=== PATIENT | female | born 1995 | race Caucasian/White ===

== ENCOUNTER 2023-04-20 17:24 | Emergency (ER) | payer OTHER, SELFPAY ==
[2023-04-20 17:47] VITALS: BP 108/88; PULSE 87; RESP 24; TEMP 36.8; O2SAT 96; BMI 22.9
[2023-04-20] MEDS: HYDROMORPHONE HCL 1 MG/ML CARTRIDGE IV (18:33)
[2023-04-20] MEDS: ONDANSETRON PF 4 MG/2 ML VIAL IV (18:34)
[2023-04-20 18:35] LABS: Basophils Percent Auto 0.3 % (0.2-2.0); Eosinophils Absolute Auto 0.3 10^3/uL (0.0-0.7); Eosinophils Percent Auto 2.7 % (0.9-7.0); Hematocrit 42.4 % (36.0-48.0); Hemoglobin 14.2 g/dL (12.0-16.0); Immature Granulocytes Abs Auto 0.03 10^3/uL (0.00-0.03); Immature Granulocytes Pct Auto 0.3 % (0.0-0.5); Lymphocytes Absolute Auto 1.9 10^3/uL (1.2-3.8); Lymphocytes Percent Auto 16.1 % (20.5-60.0); Mean Corpuscular HGB Conc 33.5 g/dL (29.9-35.2); Mean Corpuscular Hemoglobin 30.6 pg (26.7-34.0); Mean Corpuscular Volume 91.4 fL (81.0-99.0); Mean Platelet Volume 10.3 fL (9.5-13.5); Monocytes Absolute Auto 0.5 10^3/uL (0.3-0.8); Monocytes Percent Auto 4.5 % (1.7-12.0); Neutrophils Absolute Auto 8.9 10^3/uL (1.4-6.5); Neutrophils Percent Auto 76.1 % (43.0-75.0); Platelet Count 289 10^3/uL (150-450); Red Blood Count 4.64 10^6/uL (4.20-5.40); Red Cell Distribution Width 12.5 % (11.0-15.0); White Blood Count 11.7 10^3/uL (4.0-11.0)
[2023-04-20] MEDS: PANTOPRAZOLE SODIUM 40 MG VIAL IV (18:41)
[2023-04-20] MEDS: 0.9 % SODIUM CHLORIDE 1,000 ML 1000 ML IV (18:41)
[2023-04-20 18:46] LABS: Alanine Aminotransferase 16 U/L (14-59); Albumin Globulin Ratio 1.1; Alkaline Phosphatase 56 U/L (46-116); Anion Gap 12.3; Aspartate Amino Transferase 13 U/L (15-37); BUN Creatinine Ratio 22.8; Bilirubin Total 0.8 mg/dL (0.2-1.0); Calcium 8.7 mg/dL (8.5-10.1); Carbon Dioxide 24.9 mmol/L (21.0-32.0); Chloride 103 mmol/L (98-107); Estimated GFR (African America >60 (>=60); Estimated GFR (Non-African Ame >60 (>=60); Globulin 3.5 g/dL; Glucose 89 mg/dL (74-106); Potassium 4.2 mmol/L (3.5-5.1); Sodium 136 mmol/L (136-145); Total Protein 7.5 g/dL (6.4-8.2)
[2023-04-20 18:49] LABS: Lactate/Lactic Acid 0.9 mmol/L (0.4-2.0)
[2023-04-20 19:03] LABS: HCG Qualitative POSITIVE (NEGATIVE)
[2023-04-20] MEDS: lidocaine HCL 15 ML, MAG HYDROX/ALUMINUM HYD/SIMETH 30 ML, HYOSCYAMINE SULFATE 0.25 MG PO (20:02)
--- NOTE | 2023-04-20 20:54 | ED.ABDPAIN1 ---
Documented by User: ELSY Anderson 04/20/23 21:04 HPI - Abdominal Pain General Chief Complaint: Abdominal Pain Stated Complaint: ABDOMINAL PAIN Time Seen by Provider: 04/20/23 17:56 Source: patient Mode of arrival: Wheelchair Limitations: no limitations History of Present Illness HPI narrative: patient is a 28-year-old female who presents to the emergency department with her mother for the evaluation of increasing abdominal pain over the last several days. Patient states she has had ongoing similar issues for almost 2 years since her gallbladder was taken out. At time of initial interview, patient is tearful, anxious, unwilling to change into a gown and refusing IV. Her mother is at bedside and repeats over and over there is something wrong . Patient has had no objective fever, she reports an episode of coffee ground emesis earlier today. She is unsure if she may be . She denies any low abdominal pain, urinary symptoms or diarrhea. She states the pain in the epigastrium is constant and goes through to her back. She had her gallbladder removed almost 2 years ago in [place], the patient and her mother are focused on the surgery as she apparently had a complication of lacerated bile duct. She has not seen any specialists to follow up on her chronic abdominal pain since this time. She does not take any regular gastrointestinal meds. She has had no upper respiratory symptoms. Related Data Previous Rx's Medication Instructions Recorded famotidine 20 mg tablet (Pepcid) 20 mg PO BID #10 tabs 04/20/23 hydrocodone 5 mg-acetaminophen 325 1 tab PO Q6H PRN pain #6 tabs 04/20/23 mg tablet ondansetron 4 mg disintegrating 4 mg PO Q6H PRN nausea and 04/20/23 tablet vomiting #12 tabs sucralfate 1 gram tablet (Carafate) 1 g PO Q6H PRN abdominal pain #12 04/20/23 tabs Allergies Allergy/AdvReac Type Severity Reaction Status Date / Time morphine Allergy Severe Hives Verified 04/20/23 17:46 Penicillins Allergy Severe Verified 04/20/23 17:46 Review of Systems ROS Constitutional Denies: fever or chills Ears, nose, mouth, and throat Denies: throat pain or nasal congestion Cardiovascular Denies: chest pain Respiratory Denies: shortness of breath or cough Gastrointestinal Reports: abdominal pain, nausea, vomiting and coffee grounds in vomit; Denies: diarrhea or constipation Genitourinary Denies: painful urination Musculoskeletal Reports: back pain; Denies: neck pain Integumentary/Breast Denies: rash Neurological Denies: headache Psychiatric Reports: anxiety Endocrine Denies: excessive urination Hematologic/Lymphatic Denies: easy bruising PFSH [facility] Social History Smoking status: Heavy tobacco smoker Exam Narrative Exam Narrative: Gen.: Awake, alert, tearful and anxious Head: Normocephalic, atraumatic ENT: Moist mucous membranes Respiratory: No respiratory distress, lungs clear bilaterally Cardio: Regular rate and rhythm Gastrointestinal: Abdomen is soft, nondistended and tender to palpation in the epigastrium with voluntary guarding, no rebound. No CVA or flank tenderness Extremities: Moves extremities equally Psych: tearful, anxious Neuro: No focal neuro deficit Skin: Warm, dry, intact Constitutional Vital Signs, click to edit/add: Last Vital Signs Temp 98.3 F 04/20/23 17:47 Pulse 87 04/20/23 17:47 Resp 24 04/20/23 17:47 BP 108/88 04/20/23 17:47 Pulse Ox 96 04/20/23 17:47 Course Vital Signs Vital signs: Vital Signs Temperature 98.3 F 04/20/23 17:47 Pulse Rate 87 04/20/23 17:47 Respiratory Rate 24 04/20/23 17:47 Blood Pressure 108/88 04/20/23 17:47 Pulse Oximetry 96 04/20/23 17:47 Temperature 98.3 F 04/20/23 17:47 Pulse Rate 87 04/20/23 17:47 Respiratory Rate 24 04/20/23 17:47 Blood Pressure 108/88 04/20/23 17:47 Pulse Oximetry 96 04/20/23 17:47 MDM - Abdominal Pain MDM Narrative Medical decision making narrative: on my initial evaluation, patient's mother requests multiple times that the patient have a full evaluation, endoscopy, MRI of the abdomen. Patient has normal vital signs, no fevers or tachycardia. Patient was educated that she needs to allow IV placement with lab draw, her lab studies are all within normal limits. She has no anemia, no LFT abnormalities. Normal electrolytes and kidney function noted. Patient was noted to have a positive test on her lab studies. Patient was made aware that she is , we will avoid radiation as a result. Patient was given IV fluids, Dilaudid, Zofran, Pepcid with improvement. Additional gastrointestinal cocktail was given. Patient's history and physical exam are consistent with gastritis/possible ulcer. She had no episodes of emesis in the emergency department. She was observed in the Emergency Room for over three hours with no abnormal vital signs, vomiting or dry heaving. An extensive conversation was had with the patient and her mother at bedside to educate them on why we are deferring radiation/imaging at this time. Patient has had ongoing similar issues with this abdominal pain, abdomen is soft and benign in the Emergency Room. Patient will be provided with multiple resources to follow-up with primary care, gastrointestinal specialty. She is provided with Carafate, Pepcid, Zofran for gastrointestinal symptoms as well as a short course of analgesics for pain. She was reexamined by attending physician prior to discharge. Medical Records Attestation: I reviewed the patient's medical records. Lab Data Attestation: I reviewed the patient's lab results. Labs: Lab Results 04/20/23 Range/Units 18:23 WBC 11.7 H (4.0-11.0) 10^3/uL RBC 4.64 (4.20-5.40) 10^6/uL Hgb 14.2 (12.0-16.0) g/dL Hct 42.4 (36.0-48.0) % MCV 91.4 (81.0-99.0) fL MCH 30.6 (26.7-34.0) pg MCHC 33.5 (29.9-35.2) g/dL RDW 12.5 (11.0-15.0) % Plt Count 289 (150-450) 10^3/uL MPV 10.3 (9.5-13.5) fL Neut % (Auto) 76.1 H (43.0-75.0) % Lymph % (Auto) 16.1 L (20.5-60.0) % [place] % (Auto) 4.5 (1.7-12.0) % Eos % (Auto) 2.7 (0.9-7.0) % Baso % (Auto) 0.3 (0.2-2.0) % Neut # (Auto) 8.9 H (1.4-6.5) 10^3/uL Lymph # (Auto) 1.9 (1.2-3.8) 10^3/uL [place] # (Auto) 0.5 (0.3-0.8) 10^3/uL Eos # (Auto) 0.3 (0.0-0.7) 10^3/uL Baso # (Auto) 0.0 (0.0-0.1) 10^3/uL Abs Immat Gran (auto) 0.03 (0.00-0.03) 10^3/uL Imm/Tot Granulo (auto) 0.3 (0.0-0.5) % Sodium 136 (136-145) mmol/L Potassium 4.2 (3.5-5.1) mmol/L Chloride 103 (98-107) mmol/L Carbon Dioxide 24.9 (21.0-32.0) mmol/L Anion Gap 12.3 BUN 18.0 (7.0-18.0) mg/dL Creatinine 0.79 (0.55-1.02) mg/dL Est GFR ( Amer) >60 (>=60) Est GFR (Non-Af Amer) >60 (>=60) BUN/Creatinine Ratio 22.8 Glucose 89 (74-106) mg/dL Lactate 0.9 (0.4-2.0) mmol/L Calcium 8.7 (8.5-10.1) mg/dL Total Bilirubin 0.8 (0.2-1.0) mg/dL AST 13 L (15-37) U/L ALT 16 (14-59) U/L Alkaline Phosphatase 56 (46-116) U/L Total Protein 7.5 (6.4-8.2) g/dL Albumin 4.0 (3.4-5.0) g/dL Globulin 3.5 g/dL Albumin/Globulin Ratio 1.1 Lipase 23.0 (16.0-77.0) U/L Serum HCG, Qual Positive A (NEGATIVE) Discharge Plan Discharge Chief Complaint: Abdominal Pain Clinical Impression: , Abdominal pain Patient Disposition: Home, Self-Care Time of Disposition Decision: 20:46 Condition: Good Prescriptions / Home Meds: New hydrocodone-acetaminophen 5-325 mg tablet 1 tab PO Q6H PRN (Reason: pain) Qty: 6 0RF Rx Instructions: DX R10.9 sucralfate [Carafate] 1 gram tablet 1 g PO Q6H PRN (Reason: abdominal pain) Qty: 12 0RF famotidine [Pepcid] 20 mg tablet 20 mg PO BID Qty: 10 0RF ondansetron 4 mg tablet,disintegrating 4 mg PO Q6H PRN (Reason: nausea and vomiting) Qty: 12 0RF Instructions: (ED), Peptic Ulcer (ED), Gastritis (ED), GERD (Gastroesophageal Reflux Disease) (ED), Abdominal Pain (ED) Stand Alone Forms: Portal Instructions Referrals: MARZENA ROSS [Physician] - 1 week Marvel HARMON [Physician] - 1 week Physician,Non-Staff, [Primary Care Provider] - 1 week Discharge Date/Time: 04/20/23 21:10 Documented by User: Kristian Ho MD 04/20/23 23:05 HPI - Abdominal Pain General Chief Complaint: Abdominal Pain Stated Complaint: ABDOMINAL PAIN Time Seen by Provider: 04/20/23 17:56 Related Data Previous Rx's Medication Instructions Recorded famotidine 20 mg tablet (Pepcid) 20 mg PO BID #10 tabs 04/20/23 hydrocodone 5 mg-acetaminophen 325 1 tab PO Q6H PRN pain #6 tabs 04/20/23 mg tablet ondansetron 4 mg disintegrating 4 mg PO Q6H PRN nausea and 04/20/23 tablet vomiting #12 tabs sucralfate 1 gram tablet (Carafate) 1 g PO Q6H PRN abdominal pain #12 04/20/23 tabs Allergies Allergy/AdvReac Type Severity Reaction Status Date / Time morphine Allergy Severe Hives Verified 04/20/23 17:46 Penicillins Allergy Severe Verified 04/20/23 17:46 PFSH PFSH Social History Smoking status: Heavy tobacco smoker Exam Constitutional Vital Signs, click to edit/add: Last Vital Signs Temp 98.3 F 04/20/23 17:47 Pulse 87 04/20/23 17:47 Resp 24 04/20/23 17:47 BP 108/88 04/20/23 17:47 Pulse Ox 96 04/20/23 17:47 Course Vital Signs Vital signs: Vital Signs Temperature 98.3 F 04/20/23 17:47 Pulse Rate 87 04/20/23 17:47 Respiratory Rate 24 04/20/23 17:47 Blood Pressure 108/88 04/20/23 17:47 Pulse Oximetry 96 04/20/23 17:47 Temperature 98.3 F 04/20/23 17:47 Pulse Rate 87 04/20/23 17:47 Respiratory Rate 24 04/20/23 17:47 Blood Pressure 108/88 04/20/23 17:47 Pulse Oximetry 96 04/20/23 17:47 MDM - Abdominal Pain MDM Narrative Medical decision making narrative: on my initial evaluation, patient's mother requests multiple times that the patient have a full evaluation, endoscopy, MRI of the abdomen. Patient has normal vital signs, no fevers or tachycardia. Patient was educated that she needs to allow IV placement with lab draw, her lab studies are all within normal limits. She has no anemia, no LFT abnormalities. Normal electrolytes and kidney function noted. Patient was noted to have a positive test on her lab studies. Patient was made aware that she is , we will avoid radiation as a result. Patient was given IV fluids, Dilaudid, Zofran, Pepcid with improvement. Additional gastrointestinal cocktail was given. Patient's history and physical exam are consistent with gastritis/possible ulcer. She had no episodes of emesis in the emergency department. She was observed in the Emergency Room for over three hours with no abnormal vital signs, vomiting or dry heaving. An extensive conversation was had with the patient and her mother at bedside to educate them on why we are deferring radiation/imaging at this time. Patient has had ongoing similar issues with this abdominal pain, abdomen is soft and benign in the Emergency Room. Patient will be provided with multiple resources to follow-up with primary care, gastrointestinal specialty. She is provided with Carafate, Pepcid, Zofran for gastrointestinal symptoms as well as a short course of analgesics for pain. She was reexamined by attending physician prior to discharge. Dr Ho note: I, Dr Ho, have reviewed the above progress note and course of action in the ER; agree with the above. I have personally seen and evaluated this patient, gone over history and physical, and discussed disposition and treatment plan with the patient. Patient says that she lost her drivers license several years ago, and she is unable to drive anymore appointments and needs to rely on other people and friends and family for help. Patient has had medical noncompliance the last several years due to this. When patient arrived to the Emergency Room, she was a . Patient's had 2 miscarriages. Patient was due to follow up with a gastrointestinal specialist 2 years ago for similar symptoms and she did not make her appointment. Patient currently has no PCP. She has not followed up with a gastrointestinal specialist the last several years. Patient has signs and symptoms that are concerning for acid reflux, GERD, gastritis, possible peptic or duodenal ulcer. Patient found out that she was today with a positive test. Patient was educated on starting to use vitamins. Patient is aware she can only use Tylenol for pain, she was sent home with a few pain tablets of [place] as well. Patient is aware that she can use Maalox or Mylanta. Education was done with patient and mother the patient needs to follow-up and establish a PCP, patient is to follow-up and establish gastrointestinal physician. Patient and mother were slightly upset because we do not have gastrointestinal physician available, she cannot have a EGD or scope tonight done in the Emergency Room or admitted to the hospital for this. Patient is from [place], she currently lives in [place]. [place] were [place] [facility] [place] have available for consultation. They were educated on following up with Dr. Lopez as an outpatient and were also given gastrointestinal physicians from [facility] as possibilities of follow-up along with the health department, and the PCP this was given as well. Dr. Ho spent approximately 10 minutes with patient and mother at discharge with Kamilah Freeman RN in the room at all times during discharge discussion, plan, summer and treatment plan. Patient nausea and pain is better at discharge, she has a nonsurgical abdomen at discharge. Education all possibilities differential diagnosis was done at discharge and on education given to the patient at discharge as well. Patient has no acute indication for admission to the hospital at this time. Patient's mother understands this. Education was done on reasons why to return to the Emergency Room including intractable nausea, vomiting, abdominal pain, or any other acute concerns Lab Data Labs: Lab Results 04/20/23 Range/Units 18:23 WBC 11.7 H (4.0-11.0) 10^3/uL RBC 4.64 (4.20-5.40) 10^6/uL Hgb 14.2 (12.0-16.0) g/dL Hct 42.4 (36.0-48.0) % MCV 91.4 (81.0-99.0) fL MCH 30.6 (26.7-34.0) pg MCHC 33.5 (29.9-35.2) g/dL RDW 12.5 (11.0-15.0) % Plt Count 289 (150-450) 10^3/uL MPV 10.3 (9.5-13.5) fL Neut % (Auto) 76.1 H (43.0-75.0) % Lymph % (Auto) 16.1 L (20.5-60.0) % [place] % (Auto) 4.5 (1.7-12.0) % Eos % (Auto) 2.7 (0.9-7.0) % Baso % (Auto) 0.3 (0.2-2.0) % Neut # (Auto) 8.9 H (1.4-6.5) 10^3/uL Lymph # (Auto) 1.9 (1.2-3.8) 10^3/uL [place] # (Auto) 0.5 (0.3-0.8) 10^3/uL Eos # (Auto) 0.3 (0.0-0.7) 10^3/uL Baso # (Auto) 0.0 (0.0-0.1) 10^3/uL Abs Immat Gran (auto) 0.03 (0.00-0.03) 10^3/uL Imm/Tot Granulo (auto) 0.3 (0.0-0.5) % Sodium 136 (136-145) mmol/L Potassium 4.2 (3.5-5.1) mmol/L Chloride 103 (98-107) mmol/L Carbon Dioxide 24.9 (21.0-32.0) mmol/L Anion Gap 12.3 BUN 18.0 (7.0-18.0) mg/dL Creatinine 0.79 (0.55-1.02) mg/dL Est GFR ( Amer) >60 (>=60) Est GFR (Non-Af Amer) >60 (>=60) BUN/Creatinine Ratio 22.8 Glucose 89 (74-106) mg/dL Lactate 0.9 (0.4-2.0) mmol/L Calcium 8.7 (8.5-10.1) mg/dL Total Bilirubin 0.8 (0.2-1.0) mg/dL AST 13 L (15-37) U/L ALT 16 (14-59) U/L Alkaline Phosphatase 56 (46-116) U/L Total Protein 7.5 (6.4-8.2) g/dL Albumin 4.0 (3.4-5.0) g/dL Globulin 3.5 g/dL Albumin/Globulin Ratio 1.1 Lipase 23.0 (16.0-77.0) U/L Serum HCG, Qual Positive A (NEGATIVE) Discharge Plan Discharge Chief Complaint: Abdominal Pain Clinical Impression: , Abdominal pain Patient Disposition: Home, Self-Care Time of Disposition Decision: 20:46 Condition: Good Prescriptions / Home Meds: New hydrocodone-acetaminophen 5-325 mg tablet 1 tab PO Q6H PRN (Reason: pain) Qty: 6 0RF Rx Instructions: DX R10.9 sucralfate [Carafate] 1 gram tablet 1 g PO Q6H PRN (Reason: abdominal pain) Qty: 12 0RF famotidine [Pepcid] 20 mg tablet 20 mg PO BID Qty: 10 0RF ondansetron 4 mg tablet,disintegrating 4 mg PO Q6H PRN (Reason: nausea and vomiting) Qty: 12 0RF Instructions: (ED), Peptic Ulcer (ED), Gastritis (ED), GERD (Gastroesophageal Reflux Disease) (ED), Abdominal Pain (ED) Stand Alone Forms: Portal Instructions Referrals: MARZENA ROSS [Physician] - 1 week Marvel HARMON [Physician] - 1 week Physician,Non-Staff, [Primary Care Provider] - 1 week Discharge Date/Time: 04/20/23 21:10
== END 2023-04-20 21:10 | disposition home or self-care (01) ==
PROVIDERS: Physician Assistant; Emergency Provider Emergency Medicine
DX: O26.899 Other specified pregnancy related conditions, unspecified trimester (principal); R10.9 Unspecified abdominal pain; R11.2 Nausea with vomiting, unspecified; Z3A.00 Weeks of gestation of pregnancy not specified; Z90.49 Acquired absence of other specified parts of digestive tract; F17.210 Nicotine dependence, cigarettes, uncomplicated
CPT/HCPCS: 36415; 80053; 83605; 83690; 84703; 85025; 96361; 96374; 96375; 99285; J1170

== ENCOUNTER 2023-06-07 21:40 | Emergency (ER) | payer OTHER, SELFPAY ==
[2023-06-07 21:44] VITALS: BP 100/61; PULSE 72; RESP 16; TEMP 36.8; O2SAT 99; BMI 23.0
--- OUTSIDE RECORDS SUMMARY | 2023-06-07 21:47 | XMS_ITS | CCD ---
Author Name Unknown Address [address] [place] [address] Organization [facility] Care Team Providers Care Circulation Assistant Name Role Phone OLIVERERASTOSAYDADIANABRIGITTE Marvel Attending Unavailable Unavailable Primary Care Provider UnavailNASH Mortensen Attending Unavailable NASH MERA Admitting Unavailable SELF, REFERRED Referring Unavailable SELF, REFERRED Primary Care Unavailable GONZALEZ POWELL Attending Unavailable GONZALEZ POWELL Admitting Unavailable NO FAMILY, PHYSICIAN Primary Care Provider Unava ilable DO Reggie Maynard Emergency Provider Unavailable Primary Care Provider UnavailIKE [place] Primary Care Unavailable GONZALEZ POWELL Attending Unavailable REQUEST, NONE LISTED Primary Care Unavaila HILDA Trevizo Attending Unavailable JOSELO Mccray, HILDA Admitting Unavailable ROSS CAICEDO Consulting Unavailable HILDA ANN Consulting Unavailable DR JAYNE NONE LISTED Primary Care Unavaila marcelina ESPINOZA, DR GODWIN Naranjo Attending Unavailable BAUDILIO, DR GODWIN Naranjo Consulting Unavailable BAUDILIO, DR GODWIN Naranjo Admitting Unavailable RAFA KAPLAN Consulting Unavailable NO FAMILY, PHYSICIAN Primary Care Unavailable Howie Plata Jr Admitting Unavailable Howie Plata Jr Attending Unavailable Reggie Maynard Admitting Unavailable Reggie Maynard Attending Unavailable NO FAMILY, PHYSICIAN Primary Care Unavailable NASH MERA Attending Unavailable NASH MERA Attending Unavailable NASH MERA Referring Unavailable Allergies Allergy Classification Reported Allergen(s) Allergy Type Date of Onset Reaction(s) Facility (4 sources) Penicillins; Translations: [PENICILLINS] Propensity to adverse reactions to drug 9 Other (See Comments) R2G (4 sources) Morphine; Translations: [MORPHINE] Drug Allergy 1 Hives [facility] (2 sources) Penicillin Drug Allergy 0 [facility] (1 source) Morphine Drug Allergy 2 Hives [facility] (1 source) Penicillins Propensity to adverse reactions to drug 9 Unknown [facility] (1 source) Morphine Drug Allergy 1 [facility] (1 source) Morphine Drug Allergy 3 [facility] (1 source) Penicillins Drug allergy (disorder) 3 [facility] Medications Current Medications Medication Drug Class(es) Dates Sig (Normalized) Sig (Original) acetaminophen 325 mg oral tablet (1 source) Start: 02-13-2021 acetaminophen (TYLENOL) tablet 650 mg acetaminophen 325 mg / oxyCODONE hydrochloride 5 mg oral tablet (2 sources) Opioid Agonist Start: 02-15-2021 End: 02-18-2021 take 1 tablet by mouth every eight hours as needed for pain oxyCODONE-acetamino phen (PERCOCET) 5-325 MG per tablet Indications: S/P primary low transverse Take 1 tablet by mouth every 8 hours as needed for Pain for up to 3 days. 9 tablet 0 02/15/2021 02/18/2021 Active Start: 02-13-2021 oxyCODONE-acet aminophen (PERCOCET) 5-325 MG per tablet 1 tablet benzocaine 200 mg/ml / menthol 5 mg/ml topical spray (1 source) Standardized Chemical Allergen Start: 02-14-2021 benzocaine-menthol (DERMOPLAST) 20-0.5 % spray bismuth subsalicylate (1 source) Bismuth Start: 05-17-2022 Bismuth Subsalicylate (Pepto-Bismol) 262 mg/15 mL Suspension Active 524 MG PO every 30 to 60 minutes May 17, 2022 12:00am do not exceed 8 doses in a 24 hour period calcium chloride 0.0014 meq/ml / potassium chloride 0.004 meq/ml / sodium chloride 0.103 meq/ml / sodium lactate 0.028 meq/ml injectable solution (2 sources) Start: 02-12-2021 End: 02-13-2021 lactated ringers infusion 1 ml carboprost 0.25 mg/ml injection (1 source) Prostaglandin Analog Start: 02-13-2021 carboprost (HEMABATE) injection 250 mcg 1 ml diphenhydrAMINE hydrochloride 50 mg/ml cartridge (1 source) Histamine-1 Receptor Antagonist Start: 02-13-2021 diphenhydrAMINE (BENADRYL) injection 25 mg docusate sodium 100 mg oral capsule (2 sources) Start: 02-13-2021 docusate sodium (COLACE) capsule 100 mg docusate sodium 50 mg / sennosides, senior care 8.6 mg oral tablet (1 source) Start: 02-13-2021 sennosides-docusate sodium (SENOKOT-S) 8.6-50 MG tablet 1 tablet 0.4 ml enoxaparin sodium 100 mg/ml prefilled syringe (1 source) Low Molecular Weight Heparin Start: 02-14-2021 enoxaparin (LOVENOX) injection 40 mg ferrous sulfate 325 mg oral tablet (1 source) take 1 tablet by mouth once daily at breakfast ferrous sulfate (IRON 325) 325 (65 Fe) MG tablet Take 325 mg by mouth daily (with breakfast) 0 Active ibuprofen 800 mg oral tablet (2 sources) Nonsteroidal Anti-inflammatory Drug Start: 02-14-2021 take 1 tablet by mouth every eight hours ibuprofen (ADVIL;MOTRIN) 800 MG tablet Take 1 tablet by mouth every 8 hours 60 tablet 0 02/15/2021 Active lanolin 1000 mg/ml topical cream (1 source) Start: 02-13-2021 lansinoh lanolin ointment 1 ml methylergonovine maleate 0.2 mg/ml injection (1 source) Ergot Derivative Start: 02-13-2021 methylergonovine (METHERGINE) injection 200 mcg miSOPROStol 0.1 mg oral tablet (1 source) Prostaglandin E1 Analog Start: 02-13-2021 miSOPROStol (CYTOTEC) tablet 800 mcg 1 ml nalbuphine hydrochloride 10 mg/ml injection (1 source) Opioid Agonist/Antagonis t Start: 02-13-2021 nalbuphine (NUBAIN) injection 10 mg 1 ml naloxone hydrochloride 0.4 mg/ml injection (1 source) Opioid Antagonist Start: 02-13-2021 naloxone (NARCAN) injection 0.4 mg omeprazole 40 mg delayed release oral capsule (1 source) Proton Pump Inhibitor Start: 05-17-2022 take 40 mg by mouth once daily Omeprazole Active 40 MG PO Daily May 17, 2022 12:00am 2 ml ondansetron 2 mg/ml injection (1 source) Serotonin-3 Receptor Antagonist Start: 02-13-2021 ondansetron (ZOFRAN) injection 4 mg pantoprazole 40 mg delayed release oral tablet (2 sources) Proton Pump Inhibitor Start: 05-17-2022 take 1 tablet by mouth once daily Pantoprazole (Protonix) 40 mg tablet,delayed release (DR/EC) Active 40 MG PO Daily 14 May 17, 2022 12:00am Comment on above: Take 40 mg by mouth once daily. Vit-Fe Fumarate-FA ( VITAMINS PO) (1 source) Vit-Fe Fumarate-FA ( VITAMINS PO) Take by mouth 0 Active vitamin 27-1 MG tablet 1 tablet (1 source) Start: 02-13-2021 vitamin 27-1 MG tablet 1 tablet simethicone 80 mg chewable tablet (1 source) Start: 02-13-2021 simethicone (MYLICON) chewable tablet 80 mg 3 ml sodium chloride 9 mg/ml injection (3 sources) Start: 02-13-2021 0.9 % sodium chloride infusion Start: 02-13-2021 sodium chlorid e flush 0.9 % injection 10 mL sucralfate 1000 mg oral tablet (1 source) Aluminum Complex Start: 05-17-2022 take 1 tablet by mouth every six hours Sucralfate (Carafate) 1 gram tablet Active 1 GM PO Q6H 56 May 17, 2022 12:00am Completed/Discontinued Medications Medication Drug Class(es) Dates Sig (Normalized) Sig (Original) acetaminophen 325 mg / HYDROcodone bitartrate 5 mg oral tablet (1 source) Opioid Agonist Start: 11-26-2016 take 1 tablet by mouth every six hours as needed HYDROcodone-acet aminophen (NORCO) 5-325 mg per tablet Take 1 tablet by mouth every 6 hours as needed. 20 tablet 0 11/26/2016 Active Comment on above: Take 1 tablet by danny th every 6 hours as needed. calcium carbonate 500 mg chewable tablet (1 source) Start: 02-13-2021 End: 02-13-2021 calcium carbonate (TUMS) chewable tablet 1,000 mg capsaicin 0.25 mg/ml topical cream (1 source) Start: 05-24-2022 capsaicin (ZOSTRIX) 0.025 % cream Apply to affected area three times daily. 25 g 0 05/24/2022 Active Comment on above: Apply to affected ar ea three times daily. citric acid 66.8 mg/ml / sodium citrate 100 mg/ml oral solution (1 source) Calculi Dissolution Agent, Anti-coagulant Start: 02-13-2021 End: 02-13-2021 citric acid-sodium citrate (BICITRA) solution 30 mL Start: 02-13-2021 End: 02-13-2021 citric acid-sodium citrate ( BICITRA) solution 30 mL 2 ml famotidine 10 mg/ml injection (1 source) Histamine-2 Receptor Antagonist Start: 02-13-2021 End: 02-13-2021 famotidine (PEPCID) injection 20 mg Start: 02-13-2021 End: 02-13-2021 famotidine (PEPCID) injectio n 20 mg 2 ml gentamicin 40 mg/ml injection (1 source) Start: 02-13-2021 End: 02-13-2021 gentamicin (GARAMYCIN) 40 MG/ML injection haloperidol 5 mg oral tablet (1 source) Typical Antipsychotic Start: 05-24-2022 take 1 tablet by mouth once daily haloperidol (HALDOL) 5 mg tablet Take 1 tablet by mouth once daily. 12 tablet 0 05/24/2022 Active Comment on above: Take 1 tablet by danny once daily. hydrOXYzine hydrochloride 25 mg oral tablet (1 source) Antihistamine Start: 02-12-2021 End: 02-12-2021 hydrOXYzine (ATARAX) tablet 25 mg Start: 02-12-2021 End: 02-12-2021 hydrOXYzine (ATARAX) tablet 25 mg 1 ml ketorolac tromethamine 15 mg/ml cartridge (1 source) Nonsteroidal Anti-inflammatory Drug, Cyclooxygenase Inhibitor Start: 02-14-2021 End: 02-14-2021 ketorolac (TORADOL) injection 30 mg 2 ml metoclopramide 5 mg/ml prefilled syringe (1 source) Dopamine-2 Receptor Antagonist Start: 02-13-2021 End: 02-13-2021 metoclopramide (REGLAN) injection 10 mg Start: 02-13-2021 End: 02-13-2021 metoclopramide (REGLAN) inje ction 10 mg miSOPROStol (CYTOTEC) pre-sp lit tablet TABS 25 mcg (1 source) Start: 02-12-2021 End: 02-13-2021 miSOPROStol (CYTOTEC) pre-sp lit tablet TABS 25 mcg oxytocin (PITOCIN) 30 units in 500 mL infusion (1 source) Start: 02-13-2021 End: 02-13-2021 oxytocin (PITOCIN) 30 units in 500 mL infusion Problems Active Problems Problem Classification Problem Date Documented Date Episodic/Chronic Abdominal pain (9 sources) Epigastric pain; Translations: [Epigastric pain] Onset: 05-01-2022 05-17-2022 Episodic distress and abnormal forces of labor (2 sources) Liveborn with labor distress; Translations: [Labor and delivery complicated by stress, unspecified] Episodic Intestinal infection (1 source) Acute gastroenteropathy due to Colbert agent; Translations: [ACUTE GASTROENTROPATHY NORWALK AGNT] Onset: 10-21-2022 Episodic Nausea and vomiting (6 sources) Nausea with vomiting, unspecified; Translations: [Nausea and vomiting, unspecified vomiting type] Onset: 05-23-2022 Episodic Other and delivery including normal (4 sources) Patient encounter status; Translations: [Encounter for supervision of normal , unspecified, unspecified trimester] Onset: 02-12-2021 Episodic Substance-related disorders (2 sources) Cannabis use, unspecified, uncomplicated; Translations: [Cannabis use, unspecified, uncomplicated] Onset: 05-23-2022 Episodic Past or Other Problems Problem Classification Problem Date Documented Da te Episodic/Chronic Residual codes; unclassified (1 source) Acquired absence of other specified parts of digestive tract; Translations: [ACQ ABSENCE OTH PART DIGESTV TRACT] Onset: 05-06-2022 Episodic Results Test Name Value Interpretation Reference Range Facility US OB < 14 WEEKS EARLYon US OB < 14 WEEKS EARLY FINDINGS: Uterus measures 5.4 x 5.6 x 4.8 cm and contains a well-defined gestational sac surrounded by a well-defined decidual reaction. Within the gestational sac is a single live intrauterine , with heart rate of 126 bpm. [place]-rump length measures 0.95 cm, yielding an estimated sonographic gestational age of 7 weeks, 0 days. This compares with 7 weeks, 1 days, by gestational age. Estimated sonographic date of delivery December 31, 2023. Right ovary measures 2.4 x 1.7 x 2.2 cm, and is normal in size, shape, echogenicity, and color flow. Left ovary not visualized secondary to overlying bowel gas. No free fluid. No adnexal masses. IMPRESSION: Impression: Single live intrauterine with estimated sonographic gestational age 7 weeks, 0 days. ELECTRONICALLY SIGNED BY: Dallin Patel MD Normal Not Available HCG,Quantitativeon 3 HCG,Quantitative 25.40 m[iU]/mL Normal [facility] Comment on above: Result Comment: Appr oximate Approximate hCG Gestational Age Range (mIU/ml) (weeks) 0.2-1 5-50 1-2 50-500 2-3 100-5,000 3-4 500-10,000 4-5 1,000-50,000 5-6 10,000-100,000 6-8 15,000-200,000 8-12 10,000-100,000 PERFORMED BY: [place] [id number] PATHOLOGIST [employer] ARJUN HASTINGS M.D. Performed By: #### H CGQNT #### [facility] [address] [place] [address] HCG,Urineon 04-21-2023 Beta HCG ( test) Ql (U) Negative Normal [facility] Comment on above: Order Comment: Name Collection Type:: Clean-Voided Midstream Result Comment: PERF ORMED BY: [place] [id number] PATHOLOGIST [employer] ARJUN HASTINGS M.D. Performed By: #### U HCG, UA #### [facility] [address] [place], [place] [id number] [facility] Urinalysison 04-21-2023 Appearance (U) Clear Normal Clear [facility] Comment on above: Order Comment: Name Collection Type:: Clean-Voided Midstream Performed By: #### U HCG, UA #### [facility] [address] [place] [address] [place] Bilirubin,Urine Negative Normal Negative [facility] Comment on above: Order Comment: Name Collection Type:: Clean-Voided Midstream Performed By: #### U HCG, UA #### [facility] [address] [place] [address] Color (U) Yellow Normal Yellow [facility] Comment on above: Order Comment: Name Collection Type:: Clean-Voided Midstream Performed By: #### U HCG, UA #### [facility] [address] [place] [address] Glucose Ql (U) Normal Normal Normal [facility] Comment on above: Order Comment: Name Collection Type:: Clean-Voided Midstream Performed By: #### U HCG, UA #### [address] Ketones Ql (U) Negative Normal Negative [facility] Comment on above: Order Comment: Name Collection Type:: Clean-Voided Midstream Performed By: #### U HCG, UA #### [facility] [address] [place] [address] Leukocyte esterase Test strip Ql (U) Negative Normal Negative [facility] Comment on above: Order Comment: Name Collection Type:: Clean-Voided Midstream Performed By: #### U HCG, UA #### [address] Nitrite,Urine Negative Normal Negative [facility] Comment on above: Order Comment: Name Collection Type:: Clean-Voided Midstream Performed By: #### U HCG, UA #### [facility] [address] [place] [address] [place] Occult Blood,Urine Negative Normal Negative [facility] Comment on above: Order Comment: Name Collection Type:: Clean-Voided Midstream Performed By: #### U HCG, UA #### [facility] [address] [place] [address] [place] pH (U) 7.5 [pH] Normal 5.0-9.0 [facility] Comment on above: Order Comment: Name Collection Type:: Clean-Voided Midstream Performed By: #### U HCG, UA #### [address] [place] [address] [place] Protein,Urine Negative Normal Negative [facility] Comment on above: Order Comment: Name Collection Type:: Clean-Voided Midstream Performed By: #### U HCG, UA #### [facility] [address] Specificy [place],Urine 1.011 Normal 1.001-1.030 [facility] Comment on above: Order Comment: Name Collection Type:: Clean-Voided Midstream Performed By: #### U HCG, UA #### [facility] [address] Urobilinogen,Urine Normal Normal Normal [facility] Comment on above: Order Comment: Name Collection Type:: Clean-Voided Midstream Performed By: #### U HCG, UA #### [address] AMYLASEon 10-19-2022 Amylase [Catalytic activity/Vol] 42 U/L Normal 25-115 [facility] Comment on above: Performed By: #### L IPA, ROSS, CMP #### [facility] [address] [place] [address] Dr. Radha Garcia CBC AUTO DIFFon 10-19-2022 BASO # 0.0 103/ul Normal 0.0-0.1 [facility] Comment on above: Performed By: #### C BC #### [facility] [address] [address] [address] Radha Garcia Basophils/100 WBC (Bld) 0.4 % Normal 0.2-2.0 [facility] Comment on above: Performed By: #### C BC #### [facility] [address] [address] [address] Radha Garcia EO # 0.1 103/ul Normal 0.0-0.7 [facility] Comment on above: Performed By: #### C BC #### [facility] [address] [address] [address] Radha Garcia Eosinophils/100 WBC (Bld) 2.9 % Normal 0.9-7.0 [facility] Comment on above: Performed By: #### C BC #### [facility] [address] [address] [address] Rdaha Garcia Erythrocyte distribution width (RBC) [Ratio] 12.6 % Normal 11.0-15.0 [facility] Comment on above: Performed By: #### C BC #### [facility] [address] [place] [address] Dr. Radha Garcia Hematocrit (Bld) [Volume fraction] 41.9 % Normal 36.0-48.0 [facility] Comment on above: Performed By: #### C BC #### [facility] [address] [place] [address] Dr. Radha Garcia Hemoglobin (Bld) [Mass/Vol] 13.8 g/dL Normal 12.0-16.0 [facility] Comment on above: Performed By: #### C BC #### [facility] [address] [place] [address] Dr. Radha Garcia IG # 0.01 10e3/ul Normal 0.00-0.03 [facility] Comment on above: Performed By: #### C BC #### [facility] [address] [place] [address] Dr. Radha Garcia IG % 0.2 % Normal 0.0-0.5 [facility] Comment on above: Performed By: #### C BC #### [facility] [address] [place] [address] Dr. Radha Garcia LYMPH # 1.2 103/ul Normal 1.2-3.8 [facility] Comment on above: Performed By: #### C BC #### [facility] [address] [place] [address] Dr. Radha Garcia Lymphocytes/100 WBC (Bld) 25.6 % Normal 20.5-60.0 [facility] Comment on above: Performed By: #### C BC #### [facility] [address] [place] [address] Dr. Radha Garcia MANUAL DIFF REQ NO Normal [facility] Comment on above: Performed By: #### C BC #### [facility] [address] [place] [address] Dr. Radha Garcia MCH (RBC) [Entitic mass] 29.9 pg Normal 26.7-34.0 [facility] Comment on above: Performed By: #### C BC #### [facility] [address] [place] [address] Dr. Radha Garcia MCHC (RBC) [Mass/Vol] 32.9 g/dL Normal 29.9-35.2 [facility] Comment on above: Performed By: #### C BC #### [facility] [address] [place] [address] Dr. Radha Garcia MCV (RBC) [Entitic vol] 90.9 fL Normal 81.0-99.0 [facility] Comment on above: Performed By: #### C BC #### [facility] [address] [place] [address] Dr. Radha Garcia MONO # 0.3 103/ul Normal 0.3-0.8 [facility] Comment on above: Performed By: #### C BC #### [facility] [address] [place] [address] Dr. Radha Garcia Monocytes/100 WBC (Bld) 6.5 % Normal 1.7-12.0 [facility] Comment on above: Performed By: #### C BC #### [facility] [address] [place] [address] Dr. Radha Garcia NEUT # 2.9 103/ul Normal 1.4-6.5 [facility] Comment on above: Performed By: #### C BC #### [facility] [address] [place] [address] Dr. Radha Garcia Neutrophils/100 WBC (Bld) 64.4 % Normal 43.0-75.0 [facility] Comment on above: Performed By: #### C BC #### [facility] [address] [place] [address] Dr. Radha Garcia Platelet mean volume (Bld) [Entitic vol] 10.6 fL Normal 9.5-13.5 [facility] Comment on above: Performed By: #### C BC #### [facility] [address] [place] [address] Dr. Radha Garcia PLT 246 103/ul Normal 150-450 [facility] Comment on above: Performed By: #### C BC #### [facility] [address] [place] [address] Dr. Radha Garcia RBC 4.61 106/ul Normal 4.20-5.40 [facility] Comment on above: Performed By: #### C BC #### [facility] [address] [place] [address] Dr. Radha Garcia WBC 4.5 103/ul Normal 4.0-11.0 [facility] Comment on above: Performed By: #### C BC #### [facility] [address] [place] [address] Dr. Radha Garcia GI PANEL (PCR)on 10-19-2022 Adenovirus F 40/41 Not detected Normal NOT DETECTED [facility] Comment on above: Performed By: #### G IPANEL #### [facility] [address] [place] [address] Dr. Radha Garcia Astrovirus Not detected Normal NOT DETECTED [facility] Comment on above: Performed By: #### G IPANEL #### [facility] [address] [place] [address] Dr. Radha Pike. Diff toxin A/B Not detected Normal NOT DETECTED [facility] Comment on above: Performed By: #### G IPANEL #### [facility] [address] [place] [address] Dr. Radha Garcia Campylobacter Not detected Normal NOT DETECTED [facility] Comment on above: Performed By: #### G IPANEL #### [facility] [address] [place] [address] Dr. Radha Garcia Cryptosporidium Not detected Normal NOT DETECTED [facility] Comment on above: Performed By: #### G IPANEL #### [facility] [address] [place] [address] Dr. Radha Garcia Cyclos. Cayetanensis Not detected Normal NOT DETECTED [facility] Comment on above: Performed By: #### G IPANEL #### [facility] [address] [place] [address] Dr. Radha Garcia E. Coli O157 Not Applicable Normal Not Applicable [facility] Comment on above: Performed By: #### G IPANEL #### [facility] [address] [place] [address] Dr. Radha Garcia E. histolytica Not detected Normal NOT DETECTED [facility] Comment on above: Performed By: #### G IPANEL #### [facility] [address] [place] [address] Dr. Radha Garcia EAEC Not detected Normal NOT DETECTED [facility] Comment on above: Performed By: #### G IPANEL #### [facility] [address] [place] [address] Dr. Radha Garcia EIEC Not detected Normal NOT DETECTED [facility] Comment on above: Performed By: #### G IPANEL #### [facility] [address] [place] [address] Dr. Radha Garcia EPEC Not detected Normal NOT DETECTED [facility] Comment on above: Performed By: #### G IPANEL #### [facility] [address] [place] [address] Dr. Radha Garcia ETEC Not detected Normal NOT DETECTED [facility] Comment on above: Performed By: #### G IPANEL #### [facility] [address] [place] [address] Dr. Radha Garcia G. Lamblia Not detected Normal NOT DETECTED [facility] Comment on above: Performed By: #### G IPANEL #### [facility] [address] [place] [address] Dr. Radha SANTANA CONTROLS PASSED Normal [facility] Comment on above: Performed By: #### G IPANEL #### [facility] [address] [place] [address] Dr. Radha MALIK GALI HEADER GI PANEL BACTERIA Normal [facility] Comment on above: Performed By: #### G IPANEL #### [facility] [address] [place] [address] Dr. Radha LOUIS ECOLI GI PANEL DIARRHEAGENIC E.COLI / SHIGELLA Normal [facility] Comment on above: Performed By: #### G IPANEL #### [facility] [address] [place] [address] Dr. Radha LOUIS INFO SEE BELOW Normal [facility] Comment on above: Result Comment: EAEC - Enteroaggregative E. Coli EPEC- Enteropathogenic E. Coli ETEC- Enterotoxigenic E. Coli lt/st STEC- Shigella-like toxin-producing E. Coli stx1/stx2 EIEC- Shigella/Enteroinvasive E. Coli Performed By: #### G IPANEL #### [facility] [address] [place] [address] Dr. Radha LOUIS PARASITES GI PANEL PARASITES Normal [facility] Comment on above: Performed By: #### G IPANEL #### [facility] [address] [place] [address] Dr. Radha LOUIS VIRUS GI PANEL VIRUSES Normal [facility] Comment on above: Performed By: #### G IPANEL #### [facility] [address] [place] [address] Dr. Radha Garcia Norovirus GI/GII Detected Abnormal NOT DETECTED [facility] Comment on above: Performed By: #### G IPANEL #### [facility] [address] [place] [address] Dr. Radha Garcia P. Shigelloides Not detected Normal NOT DETECTED [facility] Comment on above: Performed By: #### G IPANEL #### [facility] [address] [place] [address] Dr. Radha Garcia Rotavirus A Not detected Normal NOT DETECTED [facility] Comment on above: Performed By: #### G IPANEL #### [facility] [address] [place] [address] Dr. Radha Garcia Salmonella Not detected Normal NOT DETECTED [facility] Comment on above: Performed By: #### G IPANEL #### [facility] [address] [place] [address] Dr. Radha Garcia Sapovirus Not detected Normal NOT DETECTED [facility] Comment on above: Performed By: #### G IPANEL #### [facility] [address] [place] [address] Dr. Radha Garcia STEC Not detected Normal NOT DETECTED [facility] Comment on above: Performed By: #### G IPANEL #### [facility] [address] [place] [address] Dr. Radha Garcai Vibrio Not detected Normal NOT DETECTED [facility] Comment on above: Performed By: #### G IPANEL #### [facility] [address] [place] [address] Dr. Radha Garcia Vibrio Cholera Not detected Normal NOT DETECTED [facility] Comment on above: Performed By: #### G IPANEL #### [facility] [address] [place] [address] Dr. Radha Garcia Y. Enterocolitica Not detected Normal NOT DETECTED [facility] Comment on above: Performed By: #### G IPANEL #### [facility] [address] [place] [address] Dr. Radha Garcia LIPASEon 10-19-2022 Lipase [Catalytic activity/Vol] 54.0 U/L Critically low 73.0-393.0 [facility] Comment on above: Performed By: #### L ROSS BAKER, CMP #### [facility] [address] [place] [address] Dr. Radha Garcia PROF 14(COMP METB)on 023 Albumin [Mass/Vol] 3.3 g/dL Critically low 3.4-5.0 [facility] Comment on above: Performed By: #### L ROSS BAKER, CMP #### [facility] [address] [place] [address] Dr. Radha Garcia Albumin/Globulin [Mass ratio] 1.0 {ratio} Normal [facility] Comment on above: Performed By: #### L SAMUEL ROSS, CMP #### [facility] [address] [place] [address] Dr. Radha Garcia ALP [Catalytic activity/Vol] 58 U/L Normal 46-116 [facility] Comment on above: Performed By: #### L IPA, ROSS, CMP #### [facility] [address] [address] [address] Radha Garcia ALT [Catalytic activity/Vol] 25 U/L Normal 14-59 [facility] Comment on above: Performed By: #### L IPA, ROSS, CMP #### [facility] [address] [address] [address] Radha Garcia Anion gap [Moles/Vol] 14.5 mmol/L Normal [facility] Comment on above: Performed By: #### L IPA, ROSS, CMP #### [facility] [address] [address] [address] Radha Garcia AST [Catalytic activity/Vol] 19 U/L Normal 15-37 [facility] Comment on above: Performed By: #### L IPA, ROSS, CMP #### [facility] [address] [address] [address] Radha Garcia Bilirubin [Mass/Vol] 0.8 mg/dL Normal 0.2-1.0 [facility] Comment on above: Performed By: #### L IPA, ROSS, CMP #### [facility] [address] [address] [address] Radha Garcia Calcium [Mass/Vol] 8.4 mg/dL Critically low 8.5-10.1 [facility] Comment on above: Performed By: #### L IPA, ROSS, CMP #### [facility] [address] [address] [address] Radha Garcia Chloride [Moles/Vol] 107 mmol/L Normal 98-107 [facility] Comment on above: Performed By: #### L IPA, ROSS, CMP #### [facility] [address] [address] [address] Radha Garcia CO2 [Moles/Vol] 25.8 mmol/L Normal 21.0-32.0 [facility] Comment on above: Performed By: #### L IPA, ROSS, CMP #### [facility] [address] [address] [address] Radha Garcia Creatinine [Mass/Vol] 0.78 mg/dL Normal 0.55-1.02 [facility] Comment on above: Performed By: #### L ROSS BAKER, CMP #### [facility] [address] [place] [address] Dr. Radha Garcia EGFR-AF BELIZEAN >60 Normal >=60 [facility] Comment on above: Performed By: #### L SAMUEL ROSS, CMP #### [facility] [address] [place] [address] Dr. Radha Garcia EGFR-NON AF BELIZEAN >60 Normal >=60 [facility] Comment on above: Performed By: #### L ROSS BAKER, CMP #### [facility] [address] [place] [address] Dr. Radha Garcia Globulin (S) [Mass/Vol] 3.2 g/dL Normal [facility] Comment on above: Performed By: #### L ROSS BAEKR, CMP #### [facility] [address] [place] [address] Dr. Radha Garcia Glucose [Mass/Vol] 96 mg/dL Normal 74-106 [facility] Comment on above: Performed By: #### L ROSS BAKER, CMP #### [facility] [address] [place] [address] Dr. Radha Garcia Potassium [Moles/Vol] 3.3 mmol/L Critically low 3.5-5.1 [facility] Comment on above: Performed By: #### L ROSS BAKER, CMP #### [facility] [address] [place] [address] Dr. Radha Garcia Protein [Mass/Vol] 6.5 g/dL Normal 6.4-8.2 [facility] Comment on above: Performed By: #### L ROSS BAKER, CMP #### [facility] [address] [place] [address] Dr. Radha Garcia Sodium [Moles/Vol] 144 mmol/L Normal 136-145 [facility] Comment on above: Performed By: #### L ROSS BAKER, CMP #### [facility] [address] [place] [address] Dr. Radha Garcia Urea nitrogen [Mass/Vol] 6.0 mg/dL Critically low 7.0-18.0 [facility] Comment on above: Performed By: #### L ROSS BAKER, CMP #### [facility] [address] [address] [address] Radha Garcia Urea nitrogen/Creatinine [Mass ratio] 7.7 mg/mg Normal [facility] Comment on above: Performed By: #### L ROSS BAKER, CMP #### [facility] [address] [address] [address] Radha Garcia 36on 07-16-2022 36 Attempted to call an d schedule an EGD, but mail box is full unable to leave a message. Will mail her a letter. Normal [facility] 36on 06-06-2022 36 ----- Message from Mary Jo Javier MA sent at 05/26/2022 10:02 AM EST ----- For your review! Normal [facility] BETA HCG, QUANTITATIVE FOR E Don 05-25-2022 HCG.beta subunit Qn m[IU]/mL Normal <5.0 [facility] Comment on above: Order Comment: Speci men Type: BLOOD SPECIMEN Ordering Facility: [facility] Address: [address] [address] Result Comment: Nega tive Performed By: #### 2 4323-8, 3040-3, HCGED, 19140-1 #### [facility] CLIA [id number] [place] [address] [place] CBC W Auto Differential pane l (Bld)on 05-25-2022 Basophils (Bld) [#/Vol] 10*3/uL Normal <0.11 [facility] Comment on above: Order Comment: Speci men Type: BLOOD SPECIMEN Ordering Facility: [facility] Address: [address] [address] Performed By: #### 5 7021-8 #### [facility] CLIA [id number] [address] [place] [address] [place] Basophils/100 WBC (Bld) 0.1 % Normal [facility] Comment on above: Order Comment: Speci men Type: BLOOD SPECIMEN Ordering Facility: [facility] Address: [address] [address] Performed By: #### 5 7021-8 #### [facility] [place] [id number] [address] [place] [address] [place] Differential cell count method Nom (Bld) Auto Normal [facility] Comment on above: Order Comment: Speci men Type: BLOOD SPECIMEN Ordering Facility: [facility] Address: [address] [address] Performed By: #### 5 7021-8 #### [facility] IA [id number] [address] [place] [address] [place] Eosinophils (Bld) [#/Vol] 0.08 10*3/uL Normal <0.46 [facility] Comment on above: Order Comment: Speci men Type: BLOOD SPECIMEN Ordering Facility: [facility] Address: [address] [address] Performed By: #### 5 7021-8 #### [facility] [place] [id number] [address] [place] [address] [place] Eosinophils/100 WBC (Bld) 1.0 % Normal [facility] Comment on above: Order Comment: Speci men Type: BLOOD SPECIMEN Ordering Facility: [facility] Address: [address] [address] Performed By: #### 5 7021-8 #### [facility] [place] [id number] [place] Erythrocyte distribution width (RBC) [Ratio] 12.4 % Normal 11.5-15.0 [facility] Comment on above: Order Comment: Speci men Type: BLOOD SPECIMEN Ordering Facility: [facility] Address: [address] [address] Performed By: #### 5 7021-8 #### [facility] IA [id number] [address] [place] [address] [place] Hematocrit (Bld) [Volume fraction] 43.0 % Normal 36.0-46.0 [facility] Comment on above: Order Comment: Speci men Type: BLOOD SPECIMEN Ordering Facility: [facility] Address: [address] [address] Performed By: #### 5 7021-8 #### [facility] IA [id number] [address] [place] [address] [place] Hemoglobin (Bld) [Mass/Vol] 14.2 g/dL Normal 11.5-15.5 [facility] Comment on above: Order Comment: Speci men Type: BLOOD SPECIMEN Ordering Facility: [facility] Address: [address] [address] Performed By: #### 5 7021-8 #### [facility] IA [id number] [address] [place] [address] [place] Immature granulocytes (Bld) [#/Vol] 10*3/uL Normal <0.10 [facility] Comment on above: Order Comment: Speci men Type: BLOOD SPECIMEN Ordering Facility: [facility] Address: [address] [address] Performed By: #### 5 7021-8 #### [facility] IA [id number] [address] [place] [address] [place] Immature granulocytes/100 WBC (Bld) 0.2 % Normal [facility] Comment on above: Order Comment: Speci men Type: BLOOD SPECIMEN Ordering Facility: [facility] Address: [address] [address] Performed By: #### 5 7021-8 #### [facility] IA [id number] [address] [place] [address] [place] Lymphocytes (Bld) [#/Vol] 0.30 10*3/uL Low 1.00-4.00 [facility] Comment on above: Order Comment: Speci men Type: BLOOD SPECIMEN Ordering Facility: [facility] Address: [address] [address] Performed By: #### 5 7021-8 #### [facility] IA [id number] [address] [place] Lymphocytes/100 WBC (Bld) 3.6 % Normal [facility] Comment on above: Order Comment: Speci men Type: BLOOD SPECIMEN Ordering Facility: [facility] Address: [address] [address] Performed By: #### 5 7021-8 #### [facility] [id number] [address] [place] [address] [place] MCH (RBC) [Entitic mass] 28.7 pg Normal 26.0-34.0 [facility] Comment on above: Order Comment: Speci men Type: BLOOD SPECIMEN Ordering Facility: [facility] Address: [address] [place] [address] Performed By: #### 5 7021-8 #### [facility] [id number] [address] [place] [address] [place] MCHC (RBC) [Mass/Vol] 33.0 g/dL Normal 30.5-36.0 [facility] Comment on above: Order Comment: Speci men Type: BLOOD SPECIMEN Ordering Facility: [facility] Address: [address] [place] [address] Performed By: #### 5 7021-8 #### [facility] [id number] [place] [address] [place] MCV (RBC) [Entitic vol] 86.9 fL Normal 80.0-100.0 [facility] Comment on above: Order Comment: Speci men Type: BLOOD SPECIMEN Ordering Facility: [facility] Address: [address] [address] Performed By: #### 5 7021-8 #### [facility] IA [id number] [address] [place] [address] [place] Monocytes (Bld) [#/Vol] 0.19 10*3/uL Normal <0.87 [facility] Comment on above: Order Comment: Speci men Type: BLOOD SPECIMEN Ordering Facility: [facility] Address: [address] [address] Performed By: #### 5 7021-8 #### [facility] IA [id number] [address] [place] [address] [place] Monocytes/100 WBC (Bld) 2.3 % Normal [facility] Comment on above: Order Comment: Speci men Type: BLOOD SPECIMEN Ordering Facility: [facility] Address: [address] [address] Performed By: #### 5 7021-8 #### [facility] IA [id number] [address] [place] [address] [place] Neutrophils (Bld) [#/Vol] 7.62 10*3/uL High 1.45-7.50 [facility] Comment on above: Order Comment: Speci men Type: BLOOD SPECIMEN Ordering Facility: [facility] Address: [address] [address] Performed By: #### 5 7021-8 #### [facility] IA [id number] [address] [place] [address] [place] Neutrophils/100 WBC (Bld) 92.8 % Normal [facility] Comment on above: Order Comment: Speci men Type: BLOOD SPECIMEN Ordering Facility: [facility] Address: [address] [address] Performed By: #### 5 7021-8 #### [facility] IA [id number] [address] [place] [address] [place] Nucleated RBC (Bld) [#/Vol] 10*3/uL Normal <0.01 [facility] Comment on above: Order Comment: Speci men Type: BLOOD SPECIMEN Ordering Facility: [facility] Address: [address] Performed By: #### 5 7021-8 #### [facility] IA [id number] [address] [place] [address] [place] Nucleated RBC/100 WBC (Bld) [Ratio] 0.0 /100 WBC Normal [facility] Comment on above: Order Comment: Speci men Type: BLOOD SPECIMEN Ordering Facility: [facility] Address: [address] Performed By: #### 5 7021-8 #### [facility] CLIA [id number] [address] [place] [address] [place] Platelet mean volume (Bld) [Entitic vol] 10.5 fL Normal 9.0-12.7 [facility] Comment on above: Order Comment: Speci men Type: BLOOD SPECIMEN Ordering Facility: [facility] Address: [address] Performed By: #### 5 7021-8 #### [facility] CLIA [id number] [address] [place] [address] [place] Platelets (Bld) [#/Vol] 264 10*3/uL Normal 150-400 [facility] Comment on above: Order Comment: Speci men Type: BLOOD SPECIMEN Ordering Facility: [facility] Address: [address] Performed By: #### 5 7021-8 #### [facility] CLIA [id number] [address] [place] [address] [place] RBC (Bld) [#/Vol] 4.95 10*6/uL Normal 3.90-5.20 [facility] Comment on above: Order Comment: Speci men Type: BLOOD SPECIMEN Ordering Facility: [facility] Address: [address] Performed By: #### 5 7021-8 #### [facility] CLIA [id number] [address] [place] [address] [place] WBC (Bld) [#/Vol] 8.22 10*3/uL Normal 3.70-11.00 [facility] Comment on above: Order Comment: Speci men Type: BLOOD SPECIMEN Ordering Facility: [facility] Address: [address] Performed By: #### 5 7021-8 #### [facility] CLIA [id number] [address] [place] [address] [place] Comprehensive metabolic 2000 panelon 05-25-2022 Albumin [Mass/Vol] 4.3 g/dL Normal 3.9-4.9 [facility] Comment on above: Order Comment: Speci men Type: BLOOD SPECIMEN Ordering Facility: [facility] Address: [address] [place] [address] Performed By: #### 2 4323-8, 3040-3, HCGED, 62932-7 #### [facility] CLIA [id number] [address] [place] [address] [place] ALP [Catalytic activity/Vol] 74 U/L Normal 34-123 [facility] Comment on above: Order Comment: Speci men Type: BLOOD SPECIMEN Ordering Facility: [facility] Address: [address] [place] [address] Performed By: #### 2 4323-8, 3040-3, HCGED, 36293-0 #### [facility] CLIA [id number] [address] [place] [address] [place] ALT [Catalytic activity/Vol] 23 U/L Normal 7-38 [facility] Comment on above: Order Comment: Speci men Type: BLOOD SPECIMEN Ordering Facility: [facility] Address: [address] [place] [address] Performed By: #### 2 4323-8, 3040-3, HCGED, 50282-4 #### [facility] CLIA [id number] [facility] [place] [address] [place] Anion gap [Moles/Vol] 12 mmol/L Normal 9-18 [facility] Comment on above: Order Comment: Speci men Type: BLOOD SPECIMEN Ordering Facility: [facility] Address: [address] [place] [address] Performed By: #### 2 4323-8, 3040-3, HCGED, 86051-5 #### [facility] CLIA [id number] [address] [place] [address] [place] AST [Catalytic activity/Vol] 15 U/L Normal 13-35 [facility] Comment on above: Order Comment: Speci men Type: BLOOD SPECIMEN Ordering Facility: [facility] Address: [address] [address] Performed By: #### 2 4323-8, 3040-3, HCGED, #### [facility] CLIA [id number] [address] [place] [address] [place] Bilirubin [Mass/Vol] 1.0 mg/dL Normal 0.2-1.3 [facility] Comment on above: Order Comment: Speci men Type: BLOOD SPECIMEN Ordering Facility: [facility] Address: [address] [place] [address] Performed By: #### 2 4323-8, 3040-3, HCGED, #### [facility] CLIA [id number] [address] [place] [address] [place] Calcium [Mass/Vol] 8.8 mg/dL Normal 8.5-10.2 [facility] Comment on above: Order Comment: Speci men Type: BLOOD SPECIMEN Ordering Facility: [facility] Address: [address] [place], [place] [address] Performed By: #### 2 4323-8, 3040-3, HCGED, #### [facility] CLIA [id number] [address] [place] [address] [place] Chloride [Moles/Vol] 107 mmol/L High 97-105 [facility] Comment on above: Order Comment: Speci men Type: BLOOD SPECIMEN Ordering Facility: [facility] Address: [address] [place], [place] [address] Performed By: #### 2 4323-8, 3040-3, HCGED, #### [facility] CLIA [id number] [address] [place] [address] [place] CO2 [Moles/Vol] 22 mmol/L Normal 22-30 [facility] Comment on above: Order Comment: Speci men Type: BLOOD SPECIMEN Ordering Facility: [facility] Address: [address] [id number] Performed By: #### 2 4323-8, 3040-3, HCGED, #### [facility] CLIA [id number] [address] [facility] [place] [address] [place] Creatinine [Mass/Vol] 0.70 mg/dL Normal 0.58-0.96 [facility] Comment on above: Order Comment: Speci men Type: BLOOD SPECIMEN Ordering Facility: [facility] Address: [address] [id number] Performed By: #### 2 4323-8, 3040-3, HCGED, #### [facility] CLIA [id number] [facility] [place] [address] [place] ESTIMATED GLOMERULAR FILTRATION RATE 123 mL/min/1.73m??? Normal >=60 [facility] Comment on above: Order Comment: Speci men Type: BLOOD SPECIMEN Ordering Facility: [facility] Address: [address] Result Comment: Hazel mated Glomerular Filtration Rate (eGFR) is calculated using the 2020 CKD-EPI creatinine equation. This equation utilizes serum creatinine, sex, and age as parameters. The creatinine assay has traceable calibration to isotope dilution-mass spectrometry. Refer to KDIGO guidelines for clinical interpretation. In patients with unstable renal function, e.g. those with acute kidney injury, the eGFR may not accurately reflect actual GFR. Performed By: #### 2 4323-8, 3040-3, [facility], #### [facility] CLIA [id number] [address] [facility] [place] [address] [place] Glucose [Mass/Vol] 97 mg/dL Normal 74-99 [facility] Comment on above: Order Comment: Speci men Type: BLOOD SPECIMEN Ordering Facility: [facility] Address: [address] [id number] Result Comment: The [place] [employer] (ADA) provides guidance for cutoff values for fasting glucose and random glucose. The ADA defines fasting as no caloric intake for at least 8 hours. Fasting plasma glucose results between 100 to 125 mg/dL indicate increased risk for diabetes (prediabetes). Fasting plasma glucose results greater than or equal to 126 mg/dL meet the criteria for diagnosis of diabetes. In the absence of unequivocal hyperglycemia, results should be confirmed by repeat testing. In a patient with classic symptoms of hyperglycemia or hyperglycemic crisis, random plasma glucose results greater than or equal to 200 mg/dL meet the criteria for diagnosis of diabetes. Reference: Standards of Medical Care in Diabetes 2016, [place] [employer]. Diabetes Care. 2016.39(Suppl 1). Performed By: #### 2 4323-8, 3040-3, HCGED, #### [facility] CLIA [id number] [address] [place] [address] [place] Potassium [Moles/Vol] 3.9 mmol/L Normal 3.7-5.1 [facility] Comment on above: Order Comment: Speci men Type: BLOOD SPECIMEN Ordering Facility: [facility] Address: [address] [place] [address] Performed By: #### 2 4323-8, 3040-3, HCGED, #### [facility] CLIA [id number] [address] [place] [address] [place] Protein [Mass/Vol] 6.9 g/dL Normal 6.3-8.0 [facility] Comment on above: Order Comment: Speci [facility] Type: BLOOD SPECIMEN Ordering Facility: [facility] Address: [address] [place] [address] Performed By: #### 2 4323-8, 3040-3, HCGED, #### [facility] CLIA [id number] [address] [place] [address] [place] Sodium [Moles/Vol] 141 mmol/L Normal 136-144 [facility] Comment on above: Order Comment: Speci men Type: BLOOD SPECIMEN Ordering Facility: [facility] Address: [address] [place] [address] Performed By: #### 2 4323-8, 3040-3, HCGED, #### [facility] CLIA [id number] [facility] [place] [address] [place] Urea nitrogen [Mass/Vol] 13 mg/dL Normal 7- [facility] Comment on above: Order Comment: Speci men Type: BLOOD SPECIMEN Ordering Facility: [facility] Address: [address] [place], [place] [address] Performed By: #### 2 4323-8, 3040-3, HCGED, 59387-7 #### [facility] CLIA [id number] [facility] [place] [address] [place] ECG COMPLETEon 05-25-2022 ECG COMPLETE Ventricular Rate : 9 1 BPM Atrial Rate : 92 BPM P-R Interval : 150 ms QRS Duration : 85 ms Q-T Interval : 341 ms QTC Calculation(Bazett) : 420 ms Calculated P Franklin : 33 degrees Calculated R Franklin : 21 degrees Calculated T Franklin : 24 degrees Sinus rhythm Low voltage, precordial leads Otherwise Normal ECG *SEE EPIC NOTE FOR INTERPRETATION Confirmed by KHADAR LUNA MD ([id number]), news copy editor BE TORRES ([id number]) on 05/26/2022 1:50:52 PM NAME : JOVON LOPEZ PID : [id number] : 1995 Gender : Female Race : ORD : [id number] Procedure Date : May 24 2022 23:05:41 Edit Date : May 26 2022 13:50:57 Diagnosis: Sinus rhythm Low voltage, precordial leads Otherwise Normal ECG *SEE EPIC NOTE FOR INTERPRETATION Confirmed by KHADAR LUNA MD ([id number]), news copy editor BE TORRES ([id number]) on 05/26/2022 1:50:52 PM Test Reason : Chest Pain Location : 302 : ED AVED-16 Overread By : KHADAR LUNA MD Edited By : BE TORRES Referred By : , Acquired by : [id number], Normal [facility] ED NOTEon 05-25-2022 ED NOTE HNO ID: [id number] Author: Diamond Plata RN Service: Nursing Author Type: Registered Nurse Type: ED Notes Filed: 05/24/2022 11:53 PM Note Text: Discharge instructions given to patient at bedside. Patient verbalizes understanding of discharge instructions and medications administered in ED and precautions associated with them. Patient aware of prescription medications prescribed and how to take them. Patient aware to follow up with PCP. Patient verbalizes understanding to return to ED if S/S worsen or change. Patient left ED in no acute distress. DIAMOND PLATA [facility] [phone] Normal [facility] ED PROV NOTEon 05-25-2022 ED PROV NOTE HNO ID: [id number] Author: Khadar Luna DO Service: Emergency Medicine Author Type: Physician Type: ED Provider Notes Filed: 05/24/2022 11:40 PM Note Text: ED Provider Note Patient Name: Jovon Lopez : 1995 SERVICE DATE: 05/24/22 History Patient presents with: Nausea AND Vomiting Diarrhea: Weight loss of 45 pounds over 5 months HPI Patient is a 27-year-old female who presented to the ED with her father, stepmother for concern of nausea and vomiting. Over the last 3 to 4 months the patient has had ongoing episodes of nausea, vomiting. She is vomiting multiple times per day. Has no relief with Zofran or Pepto-Bismol. Associated with abdominal pain. Pain is mostly in her mid abdomen, now spreading throughout. She was seen in the emergency department about a week ago for the symptoms, had blood work and CAT scan which was unremarkable. She followed up with law office assistant yesterday, was told that her symptoms may be related to her marijuana use. She states that because she has no pain medicine at home marijuana is the only thing that helps her symptoms. Notes that she has had pains and nausea since a complicated gallbladder removal during . States that it was complicated by bile leak, did have a stent placed which was subsequently removed. PSH Cholecystectomy FAMILY HISTORY Problem Relation Age of Onset Hypertension Father Diabetes Father Hyperlipidemia Father other (pcos) Sister other (adrenal gland tumor) Sister Social History Tobacco Use Smoking status: Never Smokeless tobacco: Never Tobacco comments: Smokes radhames--smokeless cigs. Substance and Sexual Activity Alcohol use: Yes Comment: a couple times per month Drug use: No Sexual activity: Yes Partners: Male control/protection: Condom ALLERGIES Allergen Reactions Morphine Hives Penicillins Unknown Happened when young.. Review of Systems Constitutional: Positive for activity change, appetite change, fatigue and unexpected weight change. Negative for chills and fever. HENT: Positive for congestion. Negative for sore throat. Eyes: Negative for visual disturbance. Respiratory: Negative for cough and shortness of breath. Cardiovascular: Negative for chest pain and palpitations. Gastrointestinal: Positive for abdominal pain, diarrhea, nausea and vomiting. Genitourinary: Negative for dysuria and frequency. Musculoskeletal: Negative for neck pain and neck stiffness. Skin: Negative for rash and wound. Neurological: Positive for light-headedness. Negative for weakness, numbness and headaches. Physical Exam Vitals [05/24/222117] BP Pulse Temp Temp src Resp SpO2 Weight Height 108/72 (!) 132 36.8 ?C (98.2 ?F) Temporal 16 98 % 58.5 kg (129 lb) 1.575 m (5' 2 ) Physical Exam Vitals and nursing note reviewed. Constitutional: General: She is not in acute distress. Appearance: She is not diaphoretic. Eyes: Comments: No conjunctival pallor Cardiovascular: Rate and Rhythm: Regular rhythm. Tachycardia present. Heart sounds: Normal heart sounds. Pulmonary: Effort: Pulmonary effort is normal. No respiratory distress. Breath sounds: Normal breath sounds. No wheezing or rales. Abdominal: General: Bowel sounds are normal. There is no distension. Palpations: Abdomen is soft. Tenderness: There is abdominal tenderness in the epigastric area, left upper quadrant and left lower quadrant. There is no rebound. Musculoskeletal: Cervical back: Neck supple. Skin: General: Skin is warm and dry. Neurological: Mental Status: She is alert and oriented to person, place, and time. Psychiatric: Behavior: Behavior normal. Diagnostic Testing ED Labs Ordered and Reviewed COMP METABOLIC PANEL - Abnormal; Notable for the following components: Result Value Ref Range Chloride 107 (*) 97 - 105 mmol/L All other components within normal limits LIPASE BLD - Abnormal; Notable for the following components: Lipase 15 (*) 16 - 61 U/L All other components within normal limits CBC + DIFF - Abnormal; Notable for the following components: Abs Neut 7.62 (*) 1.45 - 7.50 k/uL Abs Lymph 0.30 (*) 1.00 - 4.00 k/uL All other components within normal limits Narrative: This is an appended report. These results have been appended to a previously verified report. MAGNESIUM BLD - Normal BETA HCG, QUANTITATIVE FOR ED - Normal URINALYSIS, WITH MICROSCOPIC CMP with no creatinine elevation Lipase is normal CBC with no leukocytosis Magnesium normal hCG negative UA dip with trace blood Procedures ED Course / Clinical Impression ED Course as of 05/24/22 2323 Khadar Luna's Documentation Sat May 24, 2022 2307 EKG normal sinus rhythm, rate 91, no axis deviation, no interval prolongation, no acute ischemic changes 2315 Patient reevaluated, states she is feeling significantly better. Heart rate is improved. Clinical Impr (more content not included)... Normal [facility] Lipase SerPl-cCncon 05-25-20 Lipase [Catalytic activity/Vol] 15 U/L Low 16-61 [facility] Comment on above: Order Comment: Specarti vu Type: BLOOD SPECIMEN Ordering Facility: [facility] Address: [address] [place] [address] Performed By: #### 2 4323-8, 3040-3, HCGED, #### [facility] CLIA [id number] [address] [place], [place] [id number] [place] [address] [place] Magnesium SerPl-mCncon 05-25 Magnesium [Mass/Vol] 1.9 mg/dL Normal 1.7-2.3 [facility] Comment on above: Order Comment: [facility] Type: BLOOD SPECIMEN Ordering Facility: [facility] Address: [address] [place] [address] Performed By: #### 2 4323-8, 3040-3, HCGED, #### [facility] CLIA [id number] [address] [place] [address] [place] Urinalysis complete panel (U )on 05-25-2022 Bilirubin Ql (U) Negative Normal Negative [facility] Comment on above: Order Comment: [facility] Type: URINE SPECIMEN Ordering Facility: [facility] Address: [address] [place] [address] Performed By: #### 2 4356-8 #### [facility] CLIA [id number] [address] [place] [address] [place] Clarity (Unsp spec) Clear Normal Clear [facility] Comment on above: Order Comment: Speci men Type: URINE SPECIMEN Ordering Facility: [facility] Address: [address] [place] [address] Performed By: #### 2 4356-8 #### [facility] [place] [id number] [address] [place] [address] [place] Color (U) Yellow Normal Yellow [facility] Comment on above: Order Comment: Speci men Type: URINE SPECIMEN Ordering Facility: [facility] Address: [address] [address] Performed By: #### 2 6-8 #### [facility] [id number] [address] [place] [address] Epithelial cells LM.HPF (Urine sed) [#/Area] Few Normal [facility] Comment on above: Order Comment: Speci men Type: URINE SPECIMEN Ordering Facility: [facility] Address: [address] [place] [address] Performed By: #### 2 6-8 #### [facility] [place] [id number] [address] [place] [address] [place] Glucose Test strip (U) [Mass/Vol] Negative Normal Negative [facility] Comment on above: Order Comment: Speci men Type: URINE SPECIMEN Ordering Facility: [facility] Address: [address] [address] Performed By: #### 2 4356-8 #### [facility] [place] [id number] [address] [place] [address] [place] Hemoglobin Ql (U) Negative Normal Negative [facility] Comment on above: Order Comment: Speci men Type: URINE SPECIMEN Ordering Facility: [facility] Address: [address] [place] [address] Performed By: #### 2 4356-8 #### [facility] [place] [id number] [address] [place] [address] [place] Ketones Ql (U) 3+ Abnormal Trace, Negative [facility] Comment on above: Order Comment: Speci men Type: URINE SPECIMEN Ordering Facility: [facility] Address: [address] [address] Performed By: #### 2 4356-8 #### [facility] [place] [id number] [address] Leukocyte esterase Test strip Ql (U) 1+ Abnormal Negative [facility] Comment on above: Order Comment: Speci men Type: URINE SPECIMEN Ordering Facility: [facility] Address: [address] [address] Performed By: #### 2 4356-8 #### [facility] [place] [id number] [address] [place] [address] [place] Nitrite Ql (U) Negative Normal Negative [facility] Comment on above: Order Comment: Speci men Type: URINE SPECIMEN Ordering Facility: [facility] Address: [address] [place] [address] Performed By: #### 2 4356-8 #### [facility] IA [id number] [address] [place] [address] [place] pH (U) 5.5 [pH] Normal 5.0-8.0 [facility] Comment on above: Order Comment: Speci men Type: URINE SPECIMEN Ordering Facility: [facility] Address: [address] [address] Performed By: #### 2 4356-8 #### [facility] IA [id number] [address] [place] [address] [place] Protein (U) [Mass/Vol] Trace Normal Trace , Negative [facility] Comment on above: Order Comment: Speci men Type: URINE SPECIMEN Ordering Facility: [facility] Address: [address] [address] Performed By: #### 2 4356-8 #### [facility] IA [id number] [address] [place] [address] [place] RBC LM.HPF (Urine sed) [#/Area] 0-3 /HPF Normal 0-3 /HPF [facility] Comment on above: Order Comment: Speci men Type: URINE SPECIMEN Ordering Facility: [facility] Address: [address] [place] [address] Performed By: #### 2 4356-8 #### [facility] IA [id number] [address] [place] Specific gravity (U) [Rel density] 1.026 Normal 1.005-1.030 [facility] Comment on above: Order Comment: Speci men Type: URINE SPECIMEN Ordering Facility: [facility] Address: [address] [place] [address] Performed By: #### 2 4356-8 #### [facility] IA [id number] [address] [place] Urobilinogen Ql (U) 0.2 EU/dL Normal 0.2-1.0 EU/dL [facility] Comment on above: Order Comment: Speci men Type: URINE SPECIMEN Ordering Facility: [facility] Address: [address] [place] [address] Performed By: #### 2 4356-8 #### [facility] IA [id number] [address] STATES OF [facility] WBC LM.HPF (Urine sed) [#/Area] 6-10 /HPF Abnormal 0-5 /HPF [facility] Comment on above: Order Comment: Speci men Type: URINE SPECIMEN Ordering Facility: [facility] Address: [address] [place] [address] Performed By: #### 2 4356-8 #### [facility] [place] [id number] [address] [address] [id number] [place] ED NOTEon 05-24-2022 ED NOTE HNO ID: [id number] Author: Gabby Barone RN Service: ? Author Type: Registered Nurse Type: ED Notes Filed: 05/24/2022 9:23 PM Note Text: Patient presents with nausea, vomiting, diarrhea, and centralized abdominal pain for about 5 months. States she has lost about 45 pounds and is unable to eat or drink without pain. GABBY BARONE [facility] [phone] Normal [facility] Office Visiton 05-23-2022 Follow-up visit [id number] Jovon Lopez 1995 F Date Provider Department Center 05/23/2022 GONZALEZ PUCKETT [facility] No family history on file Level of Service:92080 [place] OFFICE/OUTPATIENT ESTABLISHED MOD MDM 30-39 MIN (GC) Reason for Visit and Comments: New Patient [632] Fatigue [46] - Had gallbladder removed in 03/2021, Dr. Powell found and fixed leak 04/2021, pt is having major problems with eating and drinking. Was referred back in 2020 [facility] Automated erythrocytes count in urine sediment (number/area)Ordered By: Reggie Maynard on 05-17-2022 RBC Auto (Urine sed) [#/Area] 5-9 [HPF] 0-4 [facility] Automated leukocytes count i n urine sediment (number/area)Ordered By: Reggie Maynard on 05-17-2022 WBC Auto (Urine sed) [#/Area] 50-100 [HPF] 0-4 [facility] Basic Metabolic Panelon 05-08 Anion gap [Moles/Vol] 14.6 mmol/L Normal 6.0-15.0 [facility] Comment on above: Performed By: #### B MP, HEPATIC, CBC, LIPASE #### [facility] [address] [id number] [place] Calcium [Mass/Vol] 8.9 mg/dL Normal 8.2-10.2 [facility] Comment on above: Performed By: #### B MP, HEPATIC, CBC, LIPASE #### [facility] [address] [place] [address] [place] Chloride [Moles/Vol] 106 mmol/L Normal 95-114 [facility] Comment on above: Performed By: #### B MP, HEPATIC, CBC, LIPASE #### [facility] [address] [place] [address] [place] CO2 [Moles/Vol] 21.7 mmol/L Low 22.0-30.0 [facility] Comment on above: Performed By: #### B MP, HEPATIC, CBC, LIPASE #### [facility] [address] Creatinine [Mass/Vol] 0.64 mg/dL Normal 0.44-1.03 [facility] Comment on above: Performed By: #### B MP, HEPATIC, CBC, LIPASE #### [facility] [address] [place] [address] [place] Creatinine Clr Calc Pharmacy 111.16 [facility] Comment on above: Performed By: #### B MP, HEPATIC, CBC, LIPASE #### [facility] [address] Estimated GFR ( Earnest > 60 [facility] Comment on above: Result Comment: GFR estimated reference range: According to KDOQI guidelines, <60 ml/min/1.73m2 is sufficient to diagnose a patient with chronic kidney disease. Performed By: #### B MP, HEPATIC, CBC, LIPASE #### [address] Estimated GFR (Non- Am > 60 [facility] Comment on above: Performed By: #### B MP, HEPATIC, CBC, LIPASE #### [address] Glucose [Mass/Vol] 94 mg/dL Normal 70-100 [facility] Comment on above: Result Comment: [place] Glucose Reference Range is dependent on time and content of last meal. Glucose of more than 200 mg/dL in a nonstressed, ambulatory subject supports the diagnosis of Diabetes Mellitus. ADA recommended reference range Performed By: #### B MP, HEPATIC, CBC, LIPASE #### [facility] [address] Potassium [Moles/Vol] 4.3 mmol/L Normal 3.5-5.1 [facility] Comment on above: Performed By: #### B MP, HEPATIC, CBC, LIPASE #### [facility] [address] Sodium [Moles/Vol] 138 mmol/L Normal 136-146 [facility] Comment on above: Performed By: #### B MP, HEPATIC, CBC, LIPASE #### [facility] [address] Urea nitrogen [Mass/Vol] 15 mg/dL Normal 9-23 [facility] Comment on above: Performed By: #### B MP, HEPATIC, CBC, LIPASE #### [facility] [address] Basophils Auto (Bld) [#/Vol] Ordered By: Reggie Maynard on 05-17-2022 Basophils (Bld) [#/Vol] 0.1 10*3/uL 0.0-0.2 [facility] Basophils/100 WBC Auto (Bld) Ordered By: Reggie Maynard on 05-17-2022 Basophils/100 WBC (Bld) 0.7 % . [facility] Bilirubin Test strip Ql (U)O rdered By: Reggie Maynard on 05-17-2022 Bilirubin Ql (U) Negative Negative [facility] Body fluid albumin measureme nt (mass/volume)Ordered By: Reggie Maynard on 05-17-2022 Albumin (Body fld) [Mass/Vol] 3.8 g/dL 3.2-5.5 [facility] Color Auto (U)Ordered By: Hadley Maynard on 05-17-2022 Color (U) Yellow Yellow [facility] Complete Blood Count Auto Di ffon 05-17-2022 Basophils (Bld) [#/Vol] 0.1 10*3/uL Normal 0.0-0.2 [facility] Comment on above: Result Comment: PERF ORMED BY: [facility] [address] [place] [address] PATHOLOGIST [employer]ER ARJUN HASTINGS M.D. Performed By: #### B MP, HEPATIC, CBC, LIPASE #### [facility] [address] Basophils/100 WBC (Bld) 0.7 % Normal . [facility] Comment on above: Performed By: #### B MP, HEPATIC, CBC, LIPASE #### [facility] [address] Eosinophils (Bld) [#/Vol] 0.3 10*3/uL Normal 0.0-0.45 [facility] Comment on above: Performed By: #### B MP, HEPATIC, CBC, LIPASE #### [address] Eosinophils/100 WBC (Bld) 4.2 % Normal . [facility] Comment on above: Performed By: #### B MP, HEPATIC, CBC, LIPASE #### [address] Erythrocyte distribution width (RBC) [Ratio] 13.0 % Normal 11.9-15.3 [facility] Comment on above: Performed By: #### B MP, HEPATIC, CBC, LIPASE #### [address] Hematocrit (Bld) [Volume fraction] 42.9 % Normal 34.0-46.4 [facility] Comment on above: Performed By: #### B MP, HEPATIC, CBC, LIPASE #### [address] Hemoglobin (Bld) [Mass/Vol] 14.5 g/dL Normal 11.8-15.4 [facility] Comment on above: Performed By: #### B MP, HEPATIC, CBC, LIPASE #### [address] Lymphocytes (Bld) [#/Vol] 1.4 10*3/uL Normal 1.00-4.8 [facility] Comment on above: Performed By: #### B MP, HEPATIC, CBC, LIPASE #### [address] Lymphocytes/100 WBC (Bld) 20.4 % Normal . [facility] Comment on above: Performed By: #### B MP, HEPATIC, CBC, LIPASE #### [address] MCH (RBC) [Entitic mass] 29.6 pg Normal 24.7-34.3 [facility] Comment on above: Performed By: #### B MP, HEPATIC, CBC, LIPASE #### [address] MCV (RBC) [Entitic vol] 87.9 fL Normal 80-[address] [facility] Comment on above: Performed By: #### B MP, HEPATIC, CBC, LIPASE #### [address] Mean Corpuscular HGB Conc 33.7 g/dL Normal 32.0-35.0 [facility] Comment on above: Performed By: #### B MP, HEPATIC, CBC, LIPASE #### [address] Monocytes (Bld) [#/Vol] 0.3 10*3/uL Normal 0.0-0.8 [facility] Comment on above: Performed By: #### B MP, HEPATIC, CBC, LIPASE #### [address] Monocytes/100 WBC (Bld) 17.93 % Normal 0.00-20.[address] [facility] Comment on above: Performed By: #### B MP, HEPATIC, CBC, LIPASE #### [address] Monocytes/100 WBC (Bld) 4.1 % Normal . [facility] Comment on above: Performed By: #### B MP, HEPATIC, CBC, LIPASE #### [address] Neutrophils (Bld) [#/Vol] 4.9 10*3/uL Normal 1.8-7.7 [facility] Comment on above: Performed By: #### B MP, HEPATIC, CBC, LIPASE #### [address] Neutrophils/100 WBC (Bld) 70.6 % Normal . [facility] Comment on above: Performed By: #### B MP, HEPATIC, CBC, LIPASE #### [address] NRBC% 0.2 /100{WBC} Normal 0-0.5 [facility] Comment on above: Performed By: #### B MP, HEPATIC, CBC, LIPASE #### [facility] [address] Platelet mean volume (Bld) [Entitic vol] 8.7 fL Normal 6.3-10.7 [facility] Comment on above: Performed By: #### B MP, HEPATIC, CBC, LIPASE #### [facility] [address] Platelets (Bld) [#/Vol] 323 10*3/uL Normal 150-450 [facility] Comment on above: Performed By: #### B MP, HEPATIC, CBC, LIPASE #### [address] RBC (Bld) [#/Vol] 4.88 10*6/uL Normal 3.60-5.00 [facility] Comment on above: Performed By: #### B MP, HEPATIC, CBC, LIPASE #### [address] WBC (Bld) [#/Vol] 7.0 10*3/uL Normal 3.8-11.6 [facility] Comment on above: Performed By: #### B MP, HEPATIC, CBC, LIPASE #### [address] Creatinine and Glomerular fi ltration rate.predicted panel (S/P/Bld)Ordered By: Reggie Maynard on 05-17-2022 Creatinine [Mass/Vol] 0.64 mg/dL 0.44-1.03 [facility] Dipstick and Microscopicon 1 07-18-2021 Appearance (U) Clear Normal Clear [facility] Comment on above: Order Comment: Name Collection Type:: Clean-Voided Midstream Performed By: #### A DDONUAPLUS, CUU, UHCG #### [address] Bacteria,Urine None Seen Normal None Seen [facility] Comment on above: Order Comment: Name Collection Type:: Clean-Voided Midstream Performed By: #### A DDONUAPLUS, CUU, UHCG #### [facility] [address] [place] [address] [place] Bilirubin,Urine Negative Normal Negative [facility] Comment on above: Order Comment: Name Collection Type:: Clean-Voided Midstream Performed By: #### A DDONUAPLUS, CUU, UHCG #### [facility] [address] [place] [address] [place] Color (U) Yellow Normal Yellow [facility] [facility] Comment on above: Order Comment: Name Collection Type:: Clean-Voided Midstream Performed By: #### A DDONUAPLUS, CUU, UHCG #### [facility] [address] [place] [address] Glucose Ql (U) Normal Normal Normal [facility] Comment on above: Order Comment: Name Collection Type:: Clean-Voided Midstream Performed By: #### A DDONUAPLUS, CUU, UHCG #### [facility] [address] [place] [address] [place] Hyaline Casts,Urine 0-8 Normal 0-8 [facility] Comment on above: Order Comment: Name Collection Type:: Clean-Voided Midstream Performed By: #### A DDONUAPLUS, CUU, UHCG #### [facility] [address] [place] [address] [place] Ketones Ql (U) Negative Normal Negative [facility] Comment on above: Order Comment: Name Collection Type:: Clean-Voided Midstream Performed By: #### A DDONUAPLUS, CUU, UHCG #### [facility] [address] [place] [address] [place] Leukocyte esterase Test strip Ql (U) 3+ High Negative [facility] Comment on above: Order Comment: Name Collection Type:: Clean-Voided Midstream Performed By: #### A DDONUAPLUS, CUU, UHCG #### [facility] [address] [place] [address] [place] Mucus,Urine 2+ Critically abnormal [facility] Comment on above: Order Comment: Name Collection Type:: Clean-Voided Midstream Performed By: #### A DDONUAPLUS, CUU, UHCG #### [facility] [address] [place] [address] [place] Nitrite,Urine Negative Normal Negative [facility] Comment on above: Order Comment: Name Collection Type:: Clean-Voided Midstream Performed By: #### A DDONUAPLUS, CUU, UHCG #### [address] Occult Blood,Urine Negative Normal Negative [facility] Comment on above: Order Comment: Name Collection Type:: Clean-Voided Midstream Performed By: #### A DDONUAPLUS, CUU, UHCG #### [address] pH (U) 5.5 [pH] Normal 5.0-9.0 [facility] Comment on above: Order Comment: Name Collection Type:: Clean-Voided Midstream Performed By: #### A DDONUAPLUS, CUU, UHCG #### [facility] [address] [place] [address] [place] Protein,Urine Negative Normal Negative [facility] Comment on above: Order Comment: Name Collection Type:: Clean-Voided Midstream Performed By: #### A DDONUAPLUS, CUU, UHCG #### [facility] [address] [place] [address] [place] RBC,Urine 5-9 High 0-4 [facility] Comment on above: Order Comment: Name Collection Type:: Clean-Voided Midstream Performed By: #### A DDONUAPLUS, CUU, UHCG #### [facility] [address] [place] [address] Renal Epithelial Cells,Urine None Seen Normal 0-1 [facility] Comment on above: Order Comment: Name Collection Type:: Clean-Voided Midstream Performed By: #### A DDONUAPLUS, CUU, UHCG #### [facility] [address] [place] [address] [place] Specificy [place],Urine 1.028 Normal 1.001-1.030 [facility] Comment on above: Order Comment: Name Collection Type:: Clean-Voided Midstream Performed By: #### A DDONUAPLUS, CUU, UHCG #### [facility] [address] Squamous Epithelial Cell,Urine 3-4 High 0-2 [facility] Comment on above: Order Comment: Name Collection Type:: Clean-Voided Midstream Performed By: #### A DDONUAPLUS, CUU, UHCG #### [facility] [address] [place] [address] Urobilinogen,Urine Normal Normal Normal [facility] Comment on above: Order Comment: Name Collection Type:: Clean-Voided Midstream Performed By: #### A DDONUAPLUS, CUU, UHCG #### [facility] [address] [place] [address] [place] WBC,Urine 50-100 High 0-4 [facility] Comment on above: Order Comment: Name Collection Type:: Clean-Voided Midstream Performed By: #### A DDONUAPLUS, CUU, UHCG #### [facility] [address] [place] [address] Direct bilirubin measurement Ordered By: Reggie Maynard on 05-17-2022 Bilirubin.direct [Mass/Vol] 0.1 mg/dL 0.0-0.4 [facility] Eosinophils Auto (Bld) [#/Vo l]Ordered By: Reggie Maynard on 05-17-2022 Eosinophils (Bld) [#/Vol] 0.3 10*3/uL 0.0-0.45 [facility] Eosinophils/100 WBC Auto (Bl d)Ordered By: Reggie Maynard on 05-17-2022 Eosinophils/100 WBC (Bld) 4.2 % . [facility] Erythrocyte distribution wid th Auto (RBC) [Ratio]Ordered By: Reggie Maynard on 05-17-2022 Erythrocyte distribution width (RBC) [Ratio] 13.0 % 11.9-15.3 [facility] Estimated glomerular filtrat ion rate (GFR) non- AmericanOrdered By: Reggie Maynard on 05-17-2022 GFR/1.73 sq M.predicted among non-blacks MDRD (S/P/Bld) [Vol rate/Area] > 60 mL/Min [facility] Globulin Calc (S) [Mass/Vol] Ordered By: Reggie Maynard on 05-17-2022 Globulin (S) [Mass/Vol] 3.3 g/dL F [facility] HCG ( test) IA.rapi d Ql (U)Ordered By: Reggie Maynard on 05-17-2022 HCG ( test) Ql (U) Negative [facility] HCG,Urineon 05-17-2022 Beta HCG ( test) Ql (U) Negative Normal [facility] Comment on above: Order Comment: Name Collection Type:: Clean-Voided Midstream Result Comment: PERF ORMED BY: [place] [id number] PATHOLOGIST [employer] ARJUN HASTINGS M.D. Performed By: #### A VIJAY RAMIREZ, [facility] [place] #### [address] Hematocrit Auto (Bld) [Volum e fraction]Ordered By: Reggie Maynard on 05-17-2022 Hematocrit (Bld) [Volume fraction] 42.9 % 34.0-46.4 [facility] Hemoglobin [Mass/volume] in BloodOrdered By: Reggie Maynard on 05-17-2022 Hemoglobin (Bld) [Mass/Vol] 14.5 g/dL 11.8-15.4 [facility] Hepatic Panelon 05-17-2022 Albumin [Mass/Vol] 3.8 g/dL Normal 3.2-5.5 [facility] Comment on above: Performed By: #### B MP, HEPATIC, CBC, LIPASE #### [address] Albumin/Globulin [Mass ratio] 1.2 {ratio} Normal [facility] Comment on above: Performed By: #### B MP, HEPATIC, CBC, LIPASE #### [address] [place] [address] [place] ALP [Catalytic activity/Vol] 56 U/L Normal 32-92 [facility] Comment on above: Performed By: #### B MP, HEPATIC, CBC, LIPASE #### [facility] [address] ALT [Catalytic activity/Vol] 22 U/L Normal 10-60 [facility] Comment on above: Performed By: #### B MP, HEPATIC, CBC, LIPASE #### [facility] [address] AST [Catalytic activity/Vol] 16 U/L Normal 10-42 [facility] Comment on above: Performed By: #### B MP, HEPATIC, CBC, LIPASE #### [address] Bilirubin [Mass/Vol] 0.8 mg/dL Normal 0.3-1.2 [facility] Comment on above: Performed By: #### B MP, HEPATIC, CBC, LIPASE #### [address] Bilirubin,Indirect 0.7 mg/dL Normal [facility] Comment on above: Performed By: #### B MP, HEPATIC, CBC, LIPASE #### [address] Bilirubin.indirect [Mass/Vol] 0.1 mg/dL Normal 0.0-0.4 [facility] Comment on above: Performed By: #### B MP, HEPATIC, CBC, LIPASE #### [facility] [address] Globulin (S) [Mass/Vol] 3.3 g/dL Normal [facility] Comment on above: Performed By: #### B MP, HEPATIC, CBC, LIPASE #### [facility] [address] Protein [Mass/Vol] 7.1 g/dL Normal 6.1-7.9 [facility] Comment on above: Performed By: #### B MP, HEPATIC, CBC, LIPASE #### [address] [address] [place] Ketones Auto test strip (U) [Mass/Vol]Ordered By: Reggie Maynard on 05-17-2022 Ketones (U) [Mass/Vol] Negative Negative [facility] - Chemistry and C hemistry - challengeOrdered By: Reggie Maynard on 05-17-2022 Lipase [Catalytic activity/Vol] 30.0 U/L [facility] - UrinalysisOrder ed By: Reggie Maynard on 05-17-2022 Hyaline casts LM Ql (Urine sed) 0-8 [LPF] 0-8 [facility] Leukocytes [#/volume] correc gema for nucleated erythrocytes in Blood by Automated counOrdered By: Reggie Maynard on 05-17-2022 WBC corrected for nucl RBC Auto (Bld) [#/Vol] 7.0 10*3/uL 3.8-11.6 [facility] Lipaseon 05-17-2022 Lipase [Catalytic activity/Vol] 30.0 U/L Normal [facility] Comment on above: Result Comment: PERF ORMED BY: [place] [id number] PATHOLOGIST [employer] ARJUN HASTINGS M.D. Performed By: #### B MP, HEPATIC, CBC, LIPASE #### [facility] [address] [place] [address] Lymphocytes Auto (Bld) [#/Vo l]Ordered By: Reggie Maynard on 05-17-2022 Lymphocytes (Bld) [#/Vol] 1.4 10*3/uL 1.00-4.8 [facility] Lymphocytes/100 WBC Auto (Bl d)Ordered By: Reggie Maynard on 05-17-2022 Lymphocytes/100 WBC (Bld) 20.4 % . [facility] MCH Auto (RBC) [Entitic mass ]Ordered By: Reggie Maynard on 05-17-2022 MCH (RBC) [Entitic mass] 29.6 pg 24.7-34.3 [facility] MCHC Auto (RBC) [Mass/Vol]Or dered By: Reggie Maynard on 05-17-2022 MCHC (RBC) [Mass/Vol] 33.7 g/dL 32.0-35.0 [facility] MCV Auto (RBC) [Entitic vol] Ordered By: Reggie Maynard on 05-17-2022 MCV (RBC) [Entitic vol] 87.9 fL 80-[address] [facility] Monocyte distribution width [Entitic volume] in Blood by AutomatedOrdered By: Reggie Maynard on 05-17-2022 Monocyte distribution width Auto (Bld) [Entitic vol] 17.93 % 0.00-20.00 [facility] Monocytes Auto (Bld) [#/Vol] Ordered By: Reggie Maynard on 05-17-2022 Monocytes (Bld) [#/Vol] 0.3 10*3/uL 0.0-0.8 [facility] Monocytes/100 WBC Auto (Bld) Ordered By: Reggie Maynard on 05-17-2022 Monocytes/100 WBC (Bld) 4.1 % . [facility] Mucus LM Ql (Urine sed)Order ed By: Reggie Maynard on 05-17-2022 Mucus Ql (Urine sed) 2+ [LPF] [facility] Neutrophils Auto (Bld) [#/Vo l]Ordered By: Reggie Maynard on 05-17-2022 Neutrophils (Bld) [#/Vol] 4.9 10*3/uL 1.8-7.7 [facility] Neutrophils/100 WBC Auto (Bl d)Ordered By: Reggie Maynard on 05-17-2022 Neutrophils/100 WBC (Bld) 70.6 % . [facility] Nitrite Test strip Ql (U)Ord ered By: Reggie Maynard on 05-17-2022 Nitrite Ql (U) Negative Negative [facility] No Panel InformationOrdered By: Reggie Maynard on 05-17-2022 Estimated GFR () > 60 mL/Min [facility] Comment on above: GFR estimated refere nce range: According to KDOQI guidelines, <60 ml/min/1.73m2 is sufficient to diagnose a patient with chronic kidney disease. Pharmacy Creatinine Clearance (Chem 111.16 [facility] Nucleated erythrocytes [Pres ence] in Blood by Automated countOrdered By: Reggie Maynard on 05-17-2022 Nucleated RBC Auto Ql (Bld) 0.2 /100{WBC} 0-0.5 [facility] Platelet mean volume Auto (B ld) [Entitic vol]Ordered By: Reggie Maynard on 05-17-2022 Platelet mean volume (Bld) [Entitic vol] 8.7 fL 6.3-10.7 [facility] Platelets Auto (Bld) [#/Vol] Ordered By: Reggie Maynard on 05-17-2022 Platelets (Bld) [#/Vol] 323 10*3/uL 150-450 [facility] Protein Auto test strip (U) [Mass/Vol]Ordered By: Reggie Maynard on 05-17-2022 Protein (U) [Mass/Vol] Negative Negative [facility] Protein [Mass/volume] in Ser um or PlasmaOrdered By: Reggie Maynard on 05-17-2022 Protein [Mass/Vol] 7.1 g/dL 6.1-7.9 [facility] RBC Auto (Bld) [#/Vol]Ordere d By: Reggie Maynard on 05-17-2022 RBC (Bld) [#/Vol] 4.88 10*6/uL 3.60-5.00 [facility] Serum or plasma alanine rangel otransferase measurement without P-5'-P (enzymatic activiOrdered By: Reggie Maynard on 05-17-2022 ALT No additional P-5'-P [Catalytic activity/Vol] 22 U/L 10-60 [facility] Serum or plasma albumin/glob ulin mass ratioOrdered By: Reggie Maynard on 05-17-2022 Albumin/Globulin [Mass ratio] 1.2 {ratio} [facility] Serum or plasma alkaline ely sphatase measurement (enzymatic activity/volume)Ordered By: Reggie Maynard on 05-17-2022 ALP [Catalytic activity/Vol] 56 U/L 32-92 [facility] Serum or plasma anion gap de terminationOrdered By: Reggie Maynard on 05-17-2022 Anion gap [Moles/Vol] 14.6 mmol/L 6.0-15.0 [facility] Serum or plasma aspartate am inotransferase measurement (enzymatic activity/volume)Ordered By: Reggie Maynard on 05-17-2022 AST [Catalytic activity/Vol] 16 U/L 10-42 [facility] Serum or plasma calcium bryon urement (mass/volume)Ordered By: Reggie Maynard on 05-17-2022 Calcium [Mass/Vol] 8.9 mg/dL 8.2-10.2 [facility] Serum or plasma chloride jamir surement (moles/volume)Ordered By: Reggie Maynard on 05-17-2022 Chloride [Moles/Vol] 106 mmol/L 95-114 [facility] Serum or plasma glucose bryon urement (mass/volume)Ordered By: Reggie Maynard on 05-17-2022 Glucose [Mass/Vol] 94 mg/dL 70-100 [facility] Comment on above: ADA recommended refe rence rangeRandom Glucose Reference Range is dependent on time and content of last meal. Glucose of more than 200 mg/dL in a nonstressed, ambulatory subject supports the diagnosis of Diabetes Mellitus. Serum or plasma non-glucuron idated bilirubin measurement (mass/volume)Ordered By: Reggie Maynard on 05-17-2022 Bilirubin.indirect [Mass/Vol] 0.7 mg/dL [facility] Serum or plasma potassium me asurement (moles/volume)Ordered By: Reggie Maynard on 05-17-2022 Potassium [Moles/Vol] 4.3 mmol/L 3.5-5.1 [facility] Serum or plasma sodium measu rement (moles/volume)Ordered By: Reggie Maynard on 05-17-2022 Sodium [Moles/Vol] 138 mmol/L 136-146 [facility] Serum or plasma total biliru bin measurement (mass/volume)Ordered By: Reggie Maynard 05-17-2022 Bilirubin [Mass/Vol] 0.8 mg/dL 0.3-1.2 [facility] Serum or plasma total carbon dioxide measurement (moles/volume)Ordered By: Reggie Maynard on 05-17-2022 CO2 [Moles/Vol] 21.7 mmol/L 22.0-30.0 [facility] Serum or plasma urea nitroge n measurement (mass/volume)Ordered By: Reggie Maynard on 05-17-2022 Urea nitrogen [Mass/Vol] 15 mg/dL 9- [facility] Specific gravity Auto test s trip (U) [Rel density]Ordered By: Reggie Maynard on 05-17-2022 Specific gravity (U) [Rel density] 1.028 1.001-1.030 [facility] Squamous epithelial cells de tection in urine sediment by light microscopyOrdered By: Reggie Maynard on 05-17-2022 Epithelial cells.squamous LM Ql (Urine sed) 3-4 [HPF] 0-2 [facility] Urine Cultureon 05-17-2022 Bacteria identified Cx Nom (U) <9,000 colonies/ml mixed bacterial skin contaminants 2 Days PERFORMED BY: [place] [id number] PATHOLOGIST [employer] ARJUN HASTINGS M.D. [facility] Comment on above: Performed By: #### A VIJAY RAMIREZ, [place] #### [address] Urine bacteria detection by automated methodOrdered By: Reggie Maynard on 05-17-2022 Bacteria Auto Ql (U) None seen None Seen [facility] Urine clarity by refractomet ry automatedOrdered By: Reggie Maynard on 05-17-2022 Clarity Refractometry automated (U) Clear Clear [facility] Urine glucose measurement by automated test strip (mass/volume)Ordered By: Reggie Maynard on 05-17-2022 Glucose Auto test strip (U) [Mass/Vol] Normal mg/dL Normal [facility] Urine hemoglobin detection b y automated test stripOrdered By: Reggie Maynard on 05-17-2022 Hemoglobin Auto test strip Ql (U) Negative Negative [facility] Urine leukocyte esterase det ection by automated test stripOrdered By: Reggie Maynard on 05-17-2022 Leukocyte esterase Auto test strip Ql (U) 3+ Negative [facility] Urine sediment renal epithel ial cell count by microscopy (number/high power field)Ordered By: Reggie Maynard on 05-17-2022 Epithelial cells.renal LM.HPF (Urine sed) [#/Area] None seen [HPF] 0-1 [facility] Urobilinogen Auto test strip (U) [Mass/Vol]Ordered By: Reggie Quachzi on 05-17-2022 Urobilinogen (U) [Mass/Vol] Normal mg/dL Normal [facility] WBC Auto (Bld) [#/Vol]Ordere d By: Reggie Quachzi on 05-17-2022 WBC (Bld) [#/Vol] 7.0 10*3/uL 3.8-11.6 [facility] pH Auto test strip (U)Ordere d By: Reggie Quachzi on 05-17-2022 pH (U) 5.5 [pH] 5.0-9.0 [facility] AMYLASEon 05-01-2022 Amylase [Catalytic activity/Vol] 61 U/L Normal 25-115 [facility] Comment on above: Performed By: #### L IPA, CMP, ROSS #### [facility] [address] [place] [address] Dr. Radha Garcia CBC AUTO DIFFon 05-01-2022 BASO # 0.0 103/ul Normal 0.0-0.1 [facility] Comment on above: Performed By: #### C BC #### [facility] [address] [place] [address] Dr. Radha Garcia Basophils/100 WBC (Bld) 0.4 % Normal 0.2-2.0 [facility] Comment on above: Performed By: #### C BC #### [facility] [address] [place] [address] Dr. Radha Garcia EO # 0.2 103/ul Normal 0.0-0.7 [facility] Comment on above: Performed By: #### C BC #### [facility] [address] [place] [address] Dr. Radha Garcia Eosinophils/100 WBC (Bld) 3.0 % Normal 0.9-7.0 [facility] Comment on above: Performed By: #### C BC #### [facility] [address] [place] [address] Dr. Radha Garcia Erythrocyte distribution width (RBC) [Ratio] 12.4 % Normal 11.0-15.0 [facility] Comment on above: Performed By: #### C BC #### [facility] [address] [place] [address] Dr. Radha Garcia Hematocrit (Bld) [Volume fraction] 40.5 % Normal 36.0-48.0 [facility] Comment on above: Performed By: #### C BC #### [facility] [address] [place] [address] Dr. Radha Garcia Hemoglobin (Bld) [Mass/Vol] 13.7 g/dL Normal 12.0-16.0 [facility] Comment on above: Performed By: #### C BC #### [facility] [address] [place] [address] Dr. Radha Garcia IG # 0.01 10e3/ul Normal 0.00-0.03 [facility] Comment on above: Performed By: #### C BC #### [facility] [address] [place] [address] Dr. Radha Garcia IG % 0.1 % Normal 0.0-0.5 [facility] Comment on above: Performed By: #### C BC #### [facility] [address] [place] [address] Dr. Radha Garcia LYMPH # 2.1 103/ul Normal 1.2-3.8 [facility] Comment on above: Performed By: #### C BC #### [facility] [address] [place] [address] Dr. Radha Garcia Lymphocytes/100 WBC (Bld) 30.7 % Normal 20.5-60.0 [facility] Comment on above: Performed By: #### C BC #### [facility] [address] [place] [address] Dr. Radha Garcia MANUAL DIFF REQ NO Normal [facility] Comment on above: Performed By: #### C BC #### [facility] [address] [place] [address] Dr. Radha Garcia MCH (RBC) [Entitic mass] 29.9 pg Normal 26.7-34.0 [facility] Comment on above: Performed By: #### C BC #### [facility] [address] [place] [address] Dr. Radha Garcia MCHC (RBC) [Mass/Vol] 33.8 g/dL Normal 29.9-35.2 [facility] Comment on above: Performed By: #### C BC #### [facility] [address] [place] [address] Dr. Radha Garcia MCV (RBC) [Entitic vol] 88.4 fL Normal 81.0-99.0 [facility] Comment on above: Performed By: #### C BC #### [facility] [address] [place] [address] Dr. Radha Garcia MONO # 0.5 103/ul Normal 0.3-0.8 [facility] Comment on above: Performed By: #### C BC #### [facility] [address] [place] [address] Dr. Radha Garcia Monocytes/100 WBC (Bld) 6.6 % Normal 1.7-12.0 [facility] Comment on above: Performed By: #### C BC #### [facility] [address] [place] [address] Dr. Radha Garcia NEUT # 4.1 103/ul Normal 1.4-6.5 [facility] Comment on above: Performed By: #### C BC #### [facility] [address] [place] [address] Dr. Radha Garcia Neutrophils/100 WBC (Bld) 59.2 % Normal 43.0-75.0 [facility] Comment on above: Performed By: #### C BC #### [facility] [address] [place] [address] Dr. Radha Garcia Platelet mean volume (Bld) [Entitic vol] 10.6 fL Normal 9.5-13.5 [facility] Comment on above: Performed By: #### C BC #### [facility] [address] [place] [address] Dr. Radha Garcia PLT 263 103/ul Normal 150-450 [facility] Comment on above: Performed By: #### C BC #### [facility] [address] [address] [address] Radha Garcia RBC 4.58 106/ul Normal 4.20-5.40 [facility] Comment on above: Performed By: #### C BC #### [facility] [address] [place], [place] [address] Dr. Radha Garcia WBC 6.9 103/ul Normal 4.0-11.0 [facility] Comment on above: Performed By: #### C BC #### [facility] [address] [place], [place] [address] ABD/PELV W CONon 05-01-20 CT ABD/PELV W CON EXAMINATION: CT ABD/PELV W CON HISTORY:Midline abdominal pain with nausea COMPARISON: 04/29/2021 TECHNIQUE: CT of the abdomen and pelvis with intravenous contrast Dose reduction techniques were achieved by using automated exposure control and/or adjustment of mA and/or kV according to patient size and/or use of iterative reconstruction technique. FINDINGS: TUBES AND IMPLANTS: None. LOWER CHEST: Unremarkable ABDOMEN and PELVIS ABDOMINAL WALL AND SOFT TISSUES: Unremarkable. BONES: Bilateral mild sacroiliitis. ARTERIES: Unremarkable. VEINS: Unremarkable. LYMPH NODES: Unremarkable. PERITONEUM/ RETROPERITONEUM: Unremarkable. BOWEL: Distended stomach. No obstruction APPENDIX: Unremarkable LIVER: No focal lesions GALLBLADDER: Surgically absent BILE DUCTS: Not dilated SPLEEN: Unremarkable. PANCREAS: Unremarkable. ADRENALS: Unremarkable. KIDNEYS/ URETERS: No stones or hydronephrosis REPRODUCTIVE ORGANS: Unremarkable URINARY BLADDER: Mildly distended IMPRESSION: 1. Distended stomach without evidence of obstruction. 2. Mildly distended bladder. Electronically authenticated by: RAFA KAPLAN Date: 2022-05-01 03:30 Normal [facility] LIPASEon 05-01-2022 Lipase [Catalytic activity/Vol] 63.0 U/L Critically low 73.0-393.0 [facility] Comment on above: Performed By: #### L IPA, CMP, ROSS #### [facility] [address] [place], [place] [address] Dr. Radha Garcia PREG HCG QUALon 05-01-2022 , QUAL Negative Normal NEGATIVE [facility] Comment on above: Performed By: #### C BC #### [facility] [address] [address] [address] Radha Garcia PROF 14(COMP METB)on 022 Albumin [Mass/Vol] 3.9 g/dL Normal 3.4-5.0 [facility] Comment on above: Performed By: #### L IPA, CMP, ROSS #### [facility] [address] [address] [address] Radha Garcia Albumin/Globulin [Mass ratio] 1.2 {ratio} Normal [facility] Comment on above: Performed By: #### L IPA, CMP, ROSS #### [facility] [address] [address] [address] Radha Garcia ALP [Catalytic activity/Vol] 73 U/L Normal 46-116 [facility] Comment on above: Performed By: #### L IPA, CMP, ROSS #### [facility] [address] [address] [address] Radha Garcia ALT [Catalytic activity/Vol] 13 U/L Critically low 14-59 [facility] Comment on above: Performed By: #### L IPA, CMP, ROSS #### [facility] Laboratory [address] [place] [address] Dr. Radha Garcia Anion gap [Moles/Vol] 9.0 mmol/L Normal [facility] Comment on above: Performed By: #### L IPA, CMP, ROSS #### [facility] Laboratory [address] [address] [address] Radha Garcia AST [Catalytic activity/Vol] 12 U/L Critically low 15-37 [facility] Comment on above: Performed By: #### L IPA, CMP, ROSS #### [facility] [address] [address] [address] Radha Garcia Bilirubin [Mass/Vol] 0.6 mg/dL Normal 0.2-1.0 [facility] Comment on above: Performed By: #### L IPA, CMP, ROSS #### [facility] Laboratory [address] [place] [address] Dr. Radha Garcia Calcium [Mass/Vol] 8.7 mg/dL Normal 8.5-10.1 [facility] Comment on above: Performed By: #### L IPA, CMP, ROSS #### [facility] [address] [address] [address] Radha Garcia Chloride [Moles/Vol] 106 mmol/L Normal 98-107 [facility] Comment on above: Performed By: #### L IPA, CMP, ROSS #### [facility] [address] [address] [address] Radha Garcia CO2 [Moles/Vol] 26.4 mmol/L Normal 21.0-32.0 [facility] Comment on above: Performed By: #### L IPA CMP, ROSS #### [facility] [address] [place] [address] Dr. Radha Garcia Creatinine [Mass/Vol] 0.71 mg/dL Normal 0.55-1.02 [facility] Comment on above: Performed By: #### L IPA, CMP, ROSS #### [facility] [address] [place] [address] Dr. Radha Garcia EGFR-AF BELIZEAN >60 Normal >=60 [facility] Comment on above: Performed By: #### L IPA CMP, ROSS #### [facility] [address] [place] [address] Dr. Radha Garcia EGFR-NON AF BELIZEAN >60 Normal >=60 [facility] Comment on above: Performed By: #### L IPA CMP, ROSS #### [facility] [address] [place] [address] Dr. Radha Garcia Globulin (S) [Mass/Vol] 3.3 g/dL Normal [facility] Comment on above: Performed By: #### L IPA, CMP, ROSS #### [facility] [address] [place] [address] Dr. Radha Garcia Glucose [Mass/Vol] 89 mg/dL Normal 74-106 [facility] Comment on above: Performed By: #### L IPA, CMP, ROSS #### [facility] [address] [address] [address] Radha Garcia Potassium [Moles/Vol] 3.4 mmol/L Critically low 3.5-5.1 [facility] Comment on above: Performed By: #### L IPA, CMP, ROSS #### [facility] [address] [place] [address] Dr. Radha Garcia Protein [Mass/Vol] 7.2 g/dL Normal 6.4-8.2 [facility] Comment on above: Performed By: #### L IPA, CMP, ROSS #### [facility] [address] [address] [address] Radha Garcia Sodium [Moles/Vol] 138 mmol/L Normal 136-145 [facility] Comment on above: Performed By: #### L IPA, CMP, ROSS #### [facility] [address] [place] [address] Dr. Radha Garcia Urea nitrogen [Mass/Vol] 12.0 mg/dL Normal 7.0-18.0 [facility] Comment on above: Performed By: #### L IPA, CMP, ROSS #### [facility] [address] [place] [address] Dr. Radha Garcia Urea nitrogen/Creatinine [Mass ratio] 16.9 mg/mg Normal [facility] Comment on above: Performed By: #### L IPA, CMP, ROSS #### [facility] [address] [place] [address] Dr. Radha Garcia Q - DRUG TOX MONITORING CONFIRMATION,URINEon 05-23-2021 Amphetamines Negative Normal <500 [facility] Comment on above: Order Comment: [facility] Testing performed at: [facility], [employer] [facility], [address] [facility], [address] [place] [address], [place], [address], Kinesiotherapist: Shamar Colunga MD [facility] Collection Date/Time: [id number] [facility] Results Received Date/Time: [id number] [facility] Reported Date/Time: FASTING: NO Performed By: #### 9 1486 #### [facility] Default [address] [place] [address] Barbiturates Negative Normal <300 [facility] Specialist Comment on above: Order Comment: [facility] performed at: [employer], [employer] [facility], [address] , [address] [place] [address], [address] [place] [address], Kinesiotherapist: Shamar Colunga MD [facility] Collection Date/Time: [facility] Results Received Date/Time: [facility] Reported Date/Time: FASTING: NO Performed By: #### 9 1486 #### [facility] Default [address] [place] [address] Benzodiazepines Negative Normal <100 [facility] Specialist Comment on above: Order Comment: [facility] performed at: [employer], [employer] [facility], [address] , [address] [place] [address], [address] [place] [address], Kinesiotherapist: Shamar Colunga MD [facility] Collection Date/Time: [facility] Results Received Date/Time: [facility] Reported Date/Time: FASTING: NO Performed By: #### 9 1486 #### [facility] Default [address] [place] [address] Cocaine Metabolite Negative Normal <150 [facility] Specialist Comment on above: Order Comment: [facility] performed at: [employer], [employer] [facility], [address] , [address] [place] [address], [phone], Kinesiotherapist: Shamar Colunga MD [facility] Collection Date/Time: [facility] Results Received Date/Time: [facility] Reported Date/Time: FASTING: NO Performed By: #### 9 1486 #### [facility] Default [address] [place] [address] COMMENT SEE NOTE Normal [facility] Comment on above: Order Comment: [facility] performed at: [employer], [employer] [facility], [address] , [address] [place] [address], [phone], Kinesiotherapist: Shamar Colunga MD [facility] Collection Date/Time: [facility] Results Received Date/Time: [facility] Reported Date/Time: FASTING: NO Result Comment: See Note 2 Note 1 This test was developed and its analytical performance characteristics have been determined by [employer]. It has not been cleared or approved by the FDA. This assay has been validated pursuant to the CLIA regulations and is used for clinical purposes. Note 2 This drug testing is for medical treatment only. Analysis was performed as non-forensic testing and these results should be used only by healthcare providers to render diagnosis or treatment, or to monitor progress of medical conditions. For assistance with interpreting these drug results, please contact a [employer] Toxicology Specialist: [phone] M-F, 8am-6pm EST. Performed By: #### 9 [id number] #### [facility] Default [address] [place] [address] Marijuana Metabolite 73 ng/mL High <5 [facility] Specialist Comment on above: Order Comment: [facility] performed at: [employer] [facility], [facility] [address], [address] [place] [address], [address] [place] [address], Kinesiotherapist: Shamar Colunga MD [facility] Collection Date/Time: [facility] Results Received Date/Time: [facility] Reported Date/Time: FASTING: NO Result Comment: See Note 1 Performed By: #### 9 1486 #### [facility] Default [address] [place] [address] Marijuana Metabolite 20 Positive Abnormal <[address] [facility] Specialist Comment on above: Order Comment: [facility] performed at: [employer] [facility], [address], [address] [place] [address], [phone], Kinesiotherapist: Shamar Colunga MD [facility] Collection Date/Time: [facility] Results Received Date/Time: [facility] Reported Date/Time: FASTING: NO Performed By: #### 9 1486 #### [facility] Default [address] [place] [address] Methadone Metabolite Negative Normal <100 [facility] Comment on above: Order Comment: [facility] performed at: [employer], [employer] [facility], [address] , [address] [place] [address], [address] [place] [address], Kinesiotherapist: Shamar Colunga MD [facility] Date/Time: [facility] Results Received Date/Time: [facility] Reported Date/Time: FASTING: NO Performed By: #### 9 1486 #### [facility] Default [address] [place] [address] Opiates Negative Normal <100 [facility] Specialist Comment on above: Order Comment: [facility] performed at: [employer], [employer] [facility], [address] , [address] [place] [address], [address] [place] [address], Kinesiotherapist: Shamar Colunga MD [facility] Collection Date/Time: [facility] Results Received Date/Time: [facility] Reported Date/Time: FASTING: NO Performed By: #### 9 1486 #### [facility] Default [address] [place] [address] Oxycodone Negative Normal <100 [facility] Specialist Comment on above: Order Comment: [facility] performed at: [employer], [employer] [facility], [address] , [address] [place] [address], [phone], Kinesiotherapist: Shamar Colunga MD [facility] Collection Date/Time: [facility] Results Received Date/Time: [facility] Reported Date/Time: FASTING: NO Performed By: #### 9 1486 #### [facility] Default [address] [place] [address] Phencyclidine Negative Normal <25 [facility] Specialist Comment on above: Order Comment: [facility] performed at: [employer], [employer] [facility], [address] , [address] [place] [address], [phone], Kinesiotherapist: Shamar Colunga MD [facility] Collection Date/Time: [facility] Results Received Date/Time: [id number] [facility] Reported Date/Time: FASTING: NO Performed By: #### 9 1486 #### [facility] Default [address] [place] [address] ERCPon 05-01-2021 ERCP [facility] Department of Radiology [address] [place] [address] Patient Name: JOVON LOPEZ : 1995 Sex: F Age: Race: White Pt. 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 Powell used 2 minutes and 40 secs of fluoro for a ERCP. Gold c-arm in 1510 out 1530. 7 images sent and 53.38 mGy.. 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 COMPARISON: None. IMPRESSION: 1. Intraoperative fluoroscopy demonstrating ERCP with biliary stent and balloon procedure. Electronically signed: Neris Guevara. Transcribed by: [email or web address], User Resident: Electronically Signed by: NERIS GUEVARA @ 05/03/2021 08:12 AM Normal [facility] Comment on above: Order Comment: Evalu ate Endoscopy Reporton Endoscopy Report MR#: [id number] [facility] Pt. Name: Jovon Lopez Surgery Date: 05/01/2021 Room #: M7A Date of : 1995 PROCEDURE NOTE ATTENDING: Gonzalez Powell M.D. PASSENGER SERVICE REPRESENTATIVE: Te Bacon MD. (Advanced Endoscopy Gastroenterology Fellow). PROCEDURE: ERCP with stent removal and balloon sweep. INDICATION: This is a 26-year-old female, who underwent cholecystectomy in March of 2021, which was complicated by bile leak. The patient underwent ERCP with biliary stent placement for cystic duct stump leak. Today, the patient presented for repeat ERCP for stent removal and final clearance of CBD. ANESTHESIA: General anesthesia. CONSENT: Informed consent was obtained after explaining risks including bleeding, perforation, reaction to medication, aspiration, pancreatitis, benefits, and alternatives to the patient. The patient verbalized understanding and agreed to proceed with procedure DESCRIPTION OF PROCEDURE: The patient was placed in semiprone position. Oxygen and cardiac monitoring equipment were attached. The patient's vital signs were continuously monitored throughout the procedure. After appropriate sedation was achieved, an Olympus side-viewing duodenal scope was advanced under direct vision from the patient's oral cavity into esophagus, stomach and 1st and 2nd part of duodenum to the level of major papilla. The previously placed common bile duct stent was removed using the snare catheter and the initial films showed stent in good position. An RX 44 sphincterotome loaded with 0.035-inch guidewire was then advanced to the level of major papilla and common bile duct was selectively cannulated. The initial cholangiogram did not show any cystic duct stump leak. The sphincterotome was then removed and a 9-12 mm injecting balloon catheter was advanced over the guidewire. An occlusive cholangiogram was obtained. No evidence of bile leak was seen. Multiple balloon sweeps were seen and one small CBD stone was removed. The final cholangiogram did not show any filling defect. The balloon catheter and the guidewire were then removed out of the patient's oral cavity. There were no immediate complications. The patient tolerated the procedure well. IMPRESSION: 1. Successful removal of previously placed plastic biliary stent. 2. The CBD was selectively cannulated. Using 9-12 mm injecting above balloon catheter an occlusive cholangiogram was obtained, which did not show any sign of bile duct leak. Multiple balloon sweeps were performed and one small CBD stone was removed. The final cholangiogram did not show any filling defect or bile leak. RECOMMENDATIONS: 1. Clear liquid diet today. 2. Observe clinical course. 3. Follow up with GI on as needed basis. Reviewed By: Te Bacon MD 05/07/2021 11:44 P Electronically Signed by: Gonzalez Powell M.D. 05/20/2021 11:19 P Gonzalez Powell M.D. I was present for the entire procedure from insertion of the scope until it was withdrawn. Date Dict: 05/01/2021/04:48 P/Te Bacon MD Date Trans: 05/01/2021 06:34 P/mmo [id number] Normal [facility] POC SARS COV2 ANTIGEN NEGATI VEon 05-01-2021 POC SARS COV2 ANTIGEN NEG Negative Normal NEGATIVE [facility] Comment on above: Result Comment: Nega tive results from patients with symptom onset beyond seven days, should be treated presumptive and confirmation with a molecular assay, if necessary, for patient management, may be performed. Negative results do not rule out SARS-CoV-2 infection and should not be used as the sole basis for treatment or patient management decisions, including infection control decisions. Negative results should be considered in the context of a patient?s recent exposures, history and the presence of clinical signs and symptoms consistent with COVID-19. The [employer] COVID-19 Ag Card is a lateral flow immunoassay intended for the qualitative detection of nucleocapsid protein antigen from SARS-CoV-2 in direct nasal swabs from individuals within the first seven days of symptom onset. Testing is limited to laboratories certified under the Clinical Laboratory Improvement Amendments of 1988 (CLIA), 42 U.S.C. ???263a, that meet the requirements to perform moderate, high or waived complexity tests. This test is authorized for use at the Point of Care (POC), i.e., in patient care settings operating under a CLIA Certificate of Waiver, Certificate of Compliance, or Certificate of Accreditation. Performed By: #### 3 1977 #### [facility] [address] [facility]. [place], [place] [id number] [place] [address] POC URINE PREGNANCYon 2020 Beta HCG ( test) Ql (U) Negative Normal NEGATIVE [facility] Comment on above: Result Comment: Perf ormed in PACU Performed By: #### 8 [id number] #### [facility] [address] [place] [address], [facility] Hemoglobinon 02-14-2021 Hemoglobin (Bld) [Mass/Vol] 11.4 g/dL Low 11.9-15.1 [facility] Comment on above: Performed By: #### H GB #### [address] [place] [address] Marketing Sales Consultant: Ilir Prasad MD HemoglobinOrdered By: Cherelle Mera on 02-14-2021 Hemoglobin.gastrointest inal spec 1 Ql (Stl) 11.4 g/dL Low 11.9 - 15.1 g/dL [facility] Phone: Interpretation and review of laboratory results Abnormal [facility] Phone: [facility] [employer] Phone: OPERATIVE REPORTon OPERATIVE REPORT [address] [address] OPERATIVE REPORT PATIENT NAME: JOVON LOPEZ : 1995 MED REC NO: [id number] ROOM: 0203 ACCOUNT NO: [id number] ADMIT DATE: 02/12/2021 PROVIDER: Fernando Hooks MD DATE OF PROCEDURE: 02/13/2021 PREOPERATIVE DIAGNOSES: at term, failed induction of labor, and intolerance to labor with late decelerations and brief episodes of bradycardia. SURGICAL PROCEDURE: Primary section, low transverse uterine segment. ANESTHESIA: Spinal. TRACE EVIDENCE TECHNICIAN: Nash Mera. ESTIMATED BLOOD LOSS: 800 mL. COMPLICATIONS OF THE PROCEDURE: None. FINDINGS: A viable vigorous male infant in vertex presentation with clear amniotic fluid. Of note, the patient was undergoing an induction of labor per Nash Mera and had been given Cytotec earlier and then given Pitocin later. The patient when developed regular contractions developed recurrent late decelerations and had episodes of bradycardia with recovery. This did cause the Pitocin to be discontinued and resuscitation did occur. The patient, however, remained 1 cm thick and still high presentation. For this reason, it was decided to perform the nonscheduled section. DESCRIPTION OF PROCEDURE: The patient was taken to the operating room. Spinal anesthesia was administered. Prepping and catheter, Rodriguez was placed. Pneumatic stockings placed. Abdomen sterilely prepped and draped in the usual fashion. Scalpel was used to make a transverse incision on the lower abdomen. Bovie cautery was used to divide the subcutaneous tissue coagulating small bleeding vessels that were encountered and then the fascia was divided with the Bovie as well. Then the fascia was mobilized away from the underlying rectus muscles both superiorly and inferiorly. Rectus muscles were bluntly in the midline. Peritoneum carefully entered. Lateral traction was placed then to allow excellent visualization of the lower uterine segment. head was noted to be still high and floating above the pubis. Uterine peritoneum was elevated and incised and this was bluntly and sharply mobilized inferiorly. Scalpel was used to make a transverse incision on the lower uterine segment. This was bluntly entered with hemostats and carefully extended in a semilunar fashion. head was elevated, turned, fundal pressure placed, and was readily delivered. Nares and oropharynx were suctioned. Cord was clamped and cut after allowing the cord to briefly pulse and infant handed off to nursing staff attending delivery. Cord blood specimen was obtained. Placenta was then manually extracted from the uterus and uterus cleaned of blood clots and membranes and cervix opened. Uterus was brought out of the incision and bleeding vessels were clamped with the ring forceps while closure was undertaken. This was done with #1 chromic in a running interlocking fashion and then a running imbricating interlocking fashion. A [id number]-wy-[id number] suture was placed on the right lateral superior portion of the incision, which gave excellent hemostasis to this area. A minimal amount of cautery was then used over the edges of the peritoneum and excellent hemostasis then was noted. Posterior cul-de-sac was cleaned of blood clots and fluid. Uterus carefully replaced into the abdomen. Anterior cul-de-sac and paracolic gutters were well cleaned and good hemostasis was noted. The fascia was then closed with looped PDS in a running non-interlocking fashion. Subcutaneous tissue was well irrigated. Subcutaneous and the subcuticular layer were closed by Nash Mera as well. Pain block given postoperatively. All sponge, needle, and instrument counts were noted be correct and the patient was taken to the recovery room in good condition. FERNANDO HOOKS MD [id number] Doc#: [id number] CC: Nash Mera [facility] TYPE AND SCREENOrdered By: Rosie Hooks on 02-13-2021 ABO/Rh Positive [facility] Work Phone: Arm Band Number [id number] [facility] Work Phone: Expiration Date 02/16/2021,2359 [facility] Work Phone: [facility] Work Phone: Type + Screenon 02-13-2021 Type + Screen Sample Expiration 02/16/2021,2359 Arm Band Number [id number] ABO/Rh(D) A POSITIVE Antibody Screen NEGATIVE [facility] Comment on above: Performed By: #### T YS #### [facility] [address] [place] [address] Marketing Sales Consultant: Ilir Prasad MD CBC auto differentialOrdered By: Nash Mera on 02-12-2021 [employer] Eos # 0.11 [facility] Work Phone: Absolute Immature Granulocyte 0.05 [facility] Work Phone: Absolute Lymph # 1.67 [facility] Work Phone: Absolute Trego # 0.44 [facility] Work Phone: Basophils (Bld) [#/Vol] 10*3/uL [facility] Work Phone: Basophils/100 WBC (Bld) 0 % 0 - 2 % [employer] Phone: Differential Type NOT REPORTED [employer] Phone: Eosinophils/100 WBC (Bld) 1 % 1 - 4 % [employer] Phone: Hematocrit (Bld) [Volume fraction] 33.3 % Low 36.3 - 47.1 % [employer] Phone: Hemoglobin.gastrointest inal spec 1 Ql (Stl) 10.7 g/dL Low 11.9 - 15.1 g/dL [employer] Phone: Immature granulocytes/100 WBC (Bld) 1 % High 0 [employer] Phone: Interpretation and review of laboratory results Abnormal [employer] Phone: Lymphocytes/100 WBC (Bld) 20 % Low 24 - 43 % [employer] Phone: MCH (RBC) [Entitic mass] 28.5 pg 25.2 - 33.5 pg [employer] Phone: MCHC (RBC) [Mass/Vol] 32.1 g/dL 28.4 - 34.8 g/dL [employer] Phone: MCV (RBC) [Entitic vol] 88.6 fL 82.6 - 102.9 fL [employer] Phone: Monocytes/100 WBC (Bld) 5 % 3 - 12 % [employer] Phone: NRBC Automated 0.0 0.0 per 100 WBC [employer] Phone: Platelet distribution width (Bld) [Ratio] 13.9 % 11.8 - 14.4 % [employer] Phone: Platelet Estimate NOT REPORTED [employer] Phone: Platelet mean volume (Bld) [Entitic vol] 11.5 fL 8.1 - 13.5 fL [employer] Phone: Platelets (Bld) [#/Vol] 229 10*3/uL [employer] Phone: RBC (Bld) [#/Vol] 3.76 10*6/uL Low 3.95 - 5.1 1 m/uL [employer] Work Phone: RBC (Bld) [#/Vol] NOT REPORTED [employer] Phone: Segmented neutrophils/100 WBC (Bld) 73 % High 36 - 65 % [employer] Phone: Segs Absolute 5.99 [employer] Work Phone: WBC (Bld) [#/Vol] 8.3 10*3/uL [employer] Phone: WBC (Bld) [#/Vol] NOT REPORTED [employer] Phone: [employer] Phone: CBC with Diffon 02-12-2021 Abs. Basophil <0.03 Normal 0.00-0.20 [facility] Comment on above: Performed By: #### C DP #### [facility] [address] [place] [address] [place] [address] Marketing Sales Consultant: Ilir Prasad MD Abs.Imm.Granulocyte 0.05 k/uL Normal 0.00-0.30 [facility] Comment on above: Performed By: #### C DP #### [facility] [address] [place] [address] Marketing Sales Consultant: Ilir Prasad MD Abs.Neutrophil (Seg) 5.99 k/uL Normal 1.50-8.10 [facility] Comment on above: Performed By: #### C DP #### [facility] [address] [place], [place] [id number] Marketing Sales Consultant: Ilir Prasad MD Basophils/100 WBC (Bld) 0 % Normal 0-2 [facility] Comment on above: Performed By: #### C DP #### [facility] [address] [place] [address] Dr. [place], [place] [id number] Marketing Sales Consultant: Ilir Prasad MD Eosinophils (Bld) [#/Vol] 0.11 10*3/uL Normal 0.00-0.44 [facility] Comment on above: Performed By: #### C DP #### [facility] [address] [place] [address] [place]. [place], [place] [phone] Marketing Sales Consultant: Ilir Prasad MD Eosinophils/100 WBC (Bld) 1 % Normal 1-4 [facility] Comment on above: Performed By: #### C DP #### [address] [place], [facility]83 Marketing Sales Consultant: Ilir Prasad MD Erythrocyte distribution width (RBC) [Ratio] 13.9 % Normal 11.8-14.4 [facility] Comment on above: Performed By: #### C DP #### [address] [place], [place] [phone] Marketing Sales Consultant: Ilir Prasad MD Hematocrit (Bld) [Volume fraction] 33.3 % Low 36.3-47.1 [facility] Comment on above: Performed By: #### C DP #### [facility] [address] [place] [address] Dr. [place], [facility]83 Marketing Sales Consultant: Ilir Prasad MD Hemoglobin (Bld) [Mass/Vol] 10.7 g/dL Low 11.9-15.1 [facility] Comment on above: Performed By: #### C DP #### [address] [place], [place] [phone] Marketing Sales Consultant: Ilir Prasad MD Immature granulocytes/100 WBC (Bld) 1 % High 0 [facility] Comment on above: Performed By: #### C DP #### [facility] [address] [place], [place] [phone] Marketing Sales Consultant: Ilir Prasad MD Lymphocytes (Bld) [#/Vol] 1.67 10*3/uL Normal 1.10-3.70 [facility] Comment on above: Performed By: #### C DP #### [facility] [address] [place], [facility]83 Marketing Sales Consultant: Ilir Prasad MD Lymphocytes/100 WBC (Bld) 20 % Low 24-43 [facility] Comment on above: Performed By: #### C DP #### [address] [place], [facility]83 Marketing Sales Consultant: Ilir Prasad MD MCH (RBC) [Entitic mass] 28.5 pg Normal 25.2-33.5 [facility] Comment on above: Performed By: #### C DP #### [address] [place], [facility]83 Marketing Sales Consultant: Ilir Prasad MD MCHC (RBC) [Mass/Vol] 32.1 g/dL Normal 28.4-34.8 [facility] Comment on above: Performed By: #### C DP #### [address] [place], [facility]83 Marketing Sales Consultant: Ilir Prasad MD MCV (RBC) [Entitic vol] 88.6 fL Normal 82.6-102.9 M [facility] Comment on above: Performed By: #### C DP #### [address] [place], [facility]83 Marketing Sales Consultant: Ilir Prasad MD Monocytes (Bld) [#/Vol] 0.44 10*3/uL Normal 0.10-1.20 [facility] Comment on above: Performed By: #### C DP #### [address] [place], [place] [phone] Marketing Sales Consultant: Ilir Prasad MD Monocytes/100 WBC (Bld) 5 % Normal 3-12 M [facility] Comment on above: Performed By: #### C DP #### [facility] [address] [place], [place] [phone] Marketing Sales Consultant: Ilir Prasad MD Neutrophil (Seg) 73 % High 36-65 [facility] Comment on above: Performed By: #### C DP #### [facility] [address] [place], [place] [phone] Marketing Sales Consultant: Ilir Prasad MD NRBC Automated 0.0 per 100 WBC Normal 0.0 [facility] Comment on above: Performed By: #### C DP #### [facility] [address] [place], [place] [phone] Marketing Sales Consultant: Ilir Prasad MD Platelet mean volume (Bld) [Entitic vol] 11.5 fL Normal 8.1-13.5 [facility] Comment on above: Performed By: #### C DP #### [address] [place], [place] [phone] Marketing Sales Consultant: Ilir Prasad MD Platelets (Bld) [#/Vol] 229 10*3/uL Normal 138-453 [facility] Comment on above: Performed By: #### C DP #### [facility] [address] [place] [address] Dr. [place], [place] [phone] Marketing Sales Consultant: Ilir Prasad MD RBC (Bld) [#/Vol] 3.76 10*6/uL Low 3.95-5.11 [facility] Comment on above: Performed By: #### C DP #### [address] [place] [address] Marketing Sales Consultant: Ilir Prasad MD WBC (Bld) [#/Vol] 8.3 10*3/uL Normal 3.5-11.3 [facility] Comment on above: Performed By: #### C DP #### [facility] [address] [place] [address] Marketing Sales Consultant: Ilir Prasad MD Auto Diff Performed NOT REPORTED Normal [facility] Comment on above: Performed By: #### C DP #### [facility] [address] [place] [address] Marketing Sales Consultant: Ilir Prasad MD Platelet Estimate NOT REPORTED Normal [facility] Comment on above: Performed By: #### C DP #### [facility] [address] [place] [address] Marketing Sales Consultant: Ilir Prasad MD RBC morphology finding Nom (Bld) NOT REPORTED Normal [facility] Comment on above: Performed By: #### C DP #### [facility] [address] [place] [address] Marketing Sales Consultant: Ilir Prasad MD WBC Morphology NOT REPORTED Normal [facility] Comment on above: Performed By: #### C DP #### [facility] [address] [place], [place] [phone] Marketing Sales Consultant: Ilir Prasad MD DRUG SCREEN MULTI URINEOrder ed By: Nash Mera on 02-12-2021 Amphetamine Screen, Ur Negative NEGATIVE [facility] [employer] Work Phone: Barbiturate Screen, Ur Negative NEGATIVE [facility] Work Phone: Benzodiazepine Screen, Urine Negative NEGATIVE [facility] Work Phone: Buprenorphine Urine Negative NEGATIVE [facility] Work Phone: Cannabinoid Scrn, Ur Negative NEGATIVE [facility] Work Phone: Cocaine Metabolite, Urine Negative NEGATIVE [facility] Work Phone: MDMA, Urine NOT REPORTED NEGATIVE [facility] Work Phone: Methadone Screen, Urine Negative NEGATIVE [facility] Work Phone: Methamphetamine, Urine Negative NEGATIVE [facility] Work Phone: Opiates, Urine Negative NEGATIVE [facility] Work Phone: Oxycodone Screen, Ur Negative NEGATIVE [facility] Work Phone: Phencyclidine, Urine Negative NEGATIVE [facility] Work Phone: Propoxyphene, Urine Negative NEGATIVE [facility] Work Phone: Test Information NOT REPORTED [facility] Work Phone: Tricyclic Antidepressants, Urine Negative NEGATIVE [facility] Work Phone: Comment on above: Drug screen results are to be used for medical purposes only. All positive results are unconfirmed. Testing for employment or legal uses should be sent to a reference laboratory for confirmation. [facility] Work Phone: Drug Scr, Abuse, Uron 2020 Amphetamine(s),Ur Negative Normal NEG [facility] Comment on above: Performed By: #### D AU #### [facility] [address] [place] [address] [place] [address] Marketing Sales Consultant: Ilir Prasad MD Barbiturate(s),Ur Negative Normal NEG [facility] Comment on above: Performed By: #### D AU #### [facility] [address] [place] [address] [place] [address] Marketing Sales Consultant: Ilir Prasad MD Benzodiazepine(s) Negative Normal NEG [facility] Comment on above: Performed By: #### D AU #### [address] [place] [address] Marketing Sales Consultant: Ilir Prasad MD Buprenorphrine, Ur Negative Normal NEG [facility] Comment on above: Performed By: #### D AU #### [address] [place], [place] [phone] Marketing Sales Consultant: Ilir Prasad MD Cannabinoid(s),Ur Negative Normal NEG [facility] Comment on above: Performed By: #### D AU #### [facility] [address] [place], [place] [phone] Marketing Sales Consultant: Ilir Prasad MD Cocaine Metabolite Negative Normal [facility] Comment on above: Performed By: #### D AU #### [facility] [address] [place], [place] [phone] Marketing Sales Consultant: Ilir Prasad MD Methadone Ql (U) Negative Normal NEG [facility] Comment on above: Performed By: #### D AU #### [facility] [address] [place] [address] [place]. [place], [place] [phone] Marketing Sales Consultant: Ilir Prasad MD Methamphetamine, Ur Negative Normal [facility] Comment on above: Performed By: #### D AU #### [facility] [address] [place] [address] Marketing Sales Consultant: Ilir Prasad MD Opiate(s), Ur Negative Normal [facility] Comment on above: Performed By: #### D AU #### [facility] [address] [place] [address] [place]. [place], [place] [phone] Marketing Sales Consultant: Ilir Prasad MD Oxycodone, Urine Negative Normal NEG [facility] Comment on above: Performed By: #### D AU #### [facility] [address] [place], [place] [phone] Marketing Sales Consultant: Ilir Prasad MD Phencyclidine, Ur Negative Normal [facility] Comment on above: Performed By: #### D AU #### [facility] [address] [place], [place] [phone] Marketing Sales Consultant: Ilir Prasad MD Propoxyphene,Urine Negative Normal [facility] Comment on above: Performed By: #### D AU #### [facility] [address] [place], [place] [phone] Marketing Sales Consultant: Ilir Prasad MD Tricyclic antidepressants Screen Ql (U) Negative Normal NEG [facility] Comment on above: Result Comment: Drug screen results are to be used for medical purposes only. All positive results are unconfirmed. Testing for employment or legal uses should be sent to a reference laboratory for confirmation. Performed By: #### D AU #### [facility] [address] [place], [place] [phone] Marketing Sales Consultant: Ilir Prasad MD Interpretive Info NOT REPORTED Normal [facility] Comment on above: Performed By: #### D AU #### [facility] [address] [place], [place] [phone] Marketing Sales Consultant: Ilir Prasad MD MDMA, Urine NOT REPORTED Normal NEG [facility] Comment on above: Performed By: #### D AU #### [facility] [address] [place] [address] [place] [address] Marketing Sales Consultant: Ilir Prasad MD GBS, External ResultOrdered By: Historical Provider on 01-29-2021 GBS, External Result Negative [facility] [employer] Phone[facility] Phone: ABO, External ResultOrdered By: Historical Provider on 08-15-2020 ABO, External Result A [facility] [employer] Phone: HIV, External ResultOrdered By: Historical Provider on 08-15-2020 HIV, External Result Non-Reactive [facility] [employer] Phone: Hepatitis B, External Result Ordered By: Historical Provider on 08-15-2020 Hep B, External Result Negative [facility] [employer] Phone: No Panel InformationOrdered By: Historical Provider on 08-15-2020 [facility] Phone: PROFILE IOrdered By : Historical Provider on 08-15-2020 ABO/Rh Positive [employer] Phone: Rh Factor, External ResultOr dered By: Historical Provider on 08-15-2020 Rh Factor, External Result Positive [employer] Phone: Hepatitis C Antibody, Group Supervisor Yard al ResultOrdered By: Historical Provider on 07-26-2020 Hepatitis C Antibody, External Result Negative [employer] Phone: No Panel InformationOrdered By: Historical Provider on 07-26-2020 [employer] Phone: RPR, External LabOrdered By: Historical Provider on 07-26-2020 RPR, External Result Non-Reactive [employer] Phone: Vag Pathogens DNAon 08-22-19 19 Hazel vag DNA Probe Positive Critically abnormal Negative for Gardnerella vaginalis by DNA Probe [facility] Comment on above: Result Comment: This is suggestive, but not diagnostic of bacterial vaginosis, results should be interpreted in conjunction with other data such as pH, amine odor, clue cells and vaginal discharge characteristics. Performed By: #### V AGDNA #### [facility] [employer] [address] [place] [address] Protein mass conc Negative Normal Negative f or Lucía species by DNA Probe [facility] Comment on above: Performed By: #### V AGDNA #### [facility] [employer] [address] [place] [address] Trich vag DNA Probe Negative Normal Negative for Trichomonas vaginalis by DNA Probe [facility] Comment on above: Performed By: #### V AGDNA #### [facility] [employer] [address] [place] [address] CNOVon 08-20-2018 CNOV Office Visit (GISELLA ) JOVON LOPEZ ([id number]) 1995 F CHT Date Time Provider Department 08/20/18 2:00 PM BRIGITTE MAIN (GILMER) GISELLA During your visit today, we recorded the following information about you: Blood pressure Weight Height Last Period 110/70 60.3 kg 1.575 m 07/20/18 Kaycee Horvath VIMAL 08/20/2018 2:17 PM Signed Weight Engineer offered: Patient declines. Brigitte Main APRN.CNP 08/20/2018 5:20 PM Signed S: This is a 23yr old , here for her annual exam with complaints of heavy, irregular AND painful menses since onset. Sister diagnosed with PCOS Last pap: never H/o abnormal pap: N/A Last mammogram: never H/o abnormal mammogram: N/A Family hx breast cancer: no Currently sexually active: yes, same partner x 3 months H/o STDs: no Contraception: condoms at times Menses: Timing: irregular Length: 3-10 days Flow: heavy, has to change super tampon q 2-3 hours Dysmenorrhea: yes, OTC NSAIDS give minimal relief REVIEW OF SYSTEMS: Abdomen: No abdominal pain, nausea, vomiting, diarrhea, or constipation. No bloating, early satiety, indigestion, or increased flatulence. Bladder: No dysuria, gross hematuria, urinary frequency, urinary urgency, or incontinence. Breast: No breast lumps, nipple d/c, overlying skin changes, redness or skin retraction. Allergies and current medication updated:Yes I have reviewed and updated the patient's medical, surgical, and family histories as well as the medication AND allergy lists. O: BP 110/70 Ht 5' 2 (1.575 m) Wt 133 lb (60.3 kg) LMP 07/20/2018 BMI 24.33 kg/m? EXAM: GENERAL: pleasant, female in no apparent distress HEENT: Normocephalic, atraumatic, mucus membranes moist and no lesions NECK: Supple and full range of motion DERMATOLOGY: Normal, without lesions, non-icteric and non-hirsute BREAST: soft, non-tender, symmetric, no dominant mass, normal nipple-areolar complex, no lymphadenopathy and no nipple discharge CHEST: Normal inspiratory effort ABDOMEN: soft, non-tender and no masses PELVIC: external genitalia normal, normal Bartholin's glands, urethra, [place]'s glands, no vulvar lesions, no cervical lesions, good vaginal support, normal appearing perineal body and perianal region, moderate amount yellow discharge noted BIMANUAL: uterus normal size, shape and consistency, no adnexal masses and non-tender RECTOVAGINAL: deferred. 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 Pt would like to try Mirena, written info give FU for insertion pending ins coverage Brigitte Main, SAEID.GILMER Horvath MA 08/20/2018 4:39 PM Signed Negative upt. Referring Provider: SELF [200] Allergies As of Date: 08/20/2018 Noted Allergy Reaction PENICILLINS 08/20/2018 16 - Unknown Comments: Happened when young.. 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 New Patient [172] Cmt: some dysuria. Irregular menses--needs control. Primary Visit Diagnosis:Encounter for gynecological examination (general) (routine) without abnormal findings [Z01.419] Other Visit Diagnoses:Breast cancer screening [Z12.31] Menorrhagia with irregular cycle [N92.1] Dysmenorrhea [N94.6] Vaginal discharge [N89.8] Screening for STD (sexually transmitted disease) [Z11.3] Encounter for IUD insertion [Z30.430] examination or test, unconfirmed [Z32.00] Order(s):PAP FLUID CERVICAL SCREENING [9395728] Order #: [id number] VAGINAL PATHOGENS DNA PROBES [SQVAGDNA] Order #: [id number] GC/CHLAMYDIA DNA DET [SQGCCAMP] Order #: [id number] TSH BLD [SQTSH] Order #: [id number] PROLACTIN BLD [SQPROL] Order #: [id number] TESTOSTERONE, FREE AND TOTAL [SQFTESTO] Order #: [id number] HGB A1C [FXPJC8G] Order #: [id number] DHEA-S BLD [SQDHEAS] Order #: [id number] FSH BLD [SQFSH] Order #: [id number] INSERT INTRAUTERINE DEVICE [[id number]] Order #: [id number] HCG QUAL UR B/O [[id number]] Order #: [id number] Prescriptions as of 08/20/2018 Sig: HYDROCODONE 5 MG-ACETAMINOPHE* Take 1 tablet by mouth every * Problem List As Of Date: 08/20/2018 (None) Visit Notes: >> Kaycee Horvath MA ThuAug 20, 2018 2:11 PM Status: Signed Weight Engineer offered: Patient declines. >> Kaycee Horvath MA ThuAug 20, 2018 4:38 PM Status: Signed Negative upt. Encounter Status:Closed by BRIGITTE MAIN CNP on 08/20/18 Normal [facility] CYTOLOGYon 08-20-2018 CYTOLOGY Specimen originated from [facility] Specimen #: [id number] Submitting Physician: BRIGITTE YOUNG CNP SPECIMEN SUBMITTED A: CERVICAL, SCREENING, FLUID ____ FINAL DIAGNOSIS A. CERVICAL, SCREENING, FLUID Satisfactory for interpretation. Excess blood. Negative for intraepithelial lesion or malignancy. Predominance of coccobacilli consistent with shift in vaginal adriana. This specimen has been analyzed by the ThinPrep Imaging System, an automated imaging and review system, which assists the laboratory in evaluating cells on ThinPrep Pap tests. Following automated imaging, selected briones from every slide are reviewed by a soakers supervisor. Yuki A Eron, CT(ASCP) (Electronic Signature) ____ CLINICAL DATA ROUTINE EXAM, HPV Testing: Yes, Reflex HPV for ASCUS Date of Last Menstrual Period: 07/20/2018 STAINS A: CERVICAL, SCREENING, FLUID THIN PREP OPEN SHANK COVERER Brigitte Echavarria M.D., Justice Court Judge Date of Report: 08/25/2018 Date of Procedure: 08/20/2018 Date of Receipt: 08/23/2018 Submitted by: BRIGITTE YOUNG CNP Location: [facility] Diagnostic interpretation performed at [facility], [address] [place] [address]. CLIA Number: [id number] The Pap Smear is a screening test for cervical cancer. False negative results occur with all screening tests, emphasizing the need for rescreening at recommended intervals, and clinical correlation. Normal [facility] GC/Chlamydia Amplifon 2018 Chlamydia Amplif Positive Critically abnormal [facility] Comment on above: Result Comment: In l ow prevalence populations, the likelihood of a false positive may be higher than a true positive. Retesting by another method may be appropriate for patients who lack risk factors or clinical signs and symptoms consistent with infection. Performed By: #### G CCT #### [place] [address] GC Amplification Negative Normal [facility] Comment on above: Performed By: #### G CCT #### [place] [address] GC/Chlam Amp Source Cervix Normal [facility] Comment on above: Performed By: #### G CCT #### [place] [address] PROGRESSon 08-20-2018 Protein mass conc HNO ID: [id number] Author: Brigitte Grier (Bobbin Cleaning Machine Operator) O'Young Service: ? Author Type: Nurse Practitioner Type: Progress Notes Filed: 08/20/2018 5:20 PM Note Text: S: This is a 23yr old , here for her annual exam with complaints of heavy, irregular AND painful menses since onset. Sister diagnosed with PCOS Last pap: never H/o abnormal pap: N/A Last mammogram: never H/o abnormal mammogram: N/A Family hx breast cancer: no Currently sexually active: yes, same partner x 3 months H/o STDs: no Contraception: condoms at times Menses: Timing: irregular Length: 3-10 days Flow: heavy, has to change super tampon q 2-3 hours Dysmenorrhea: yes, OTC NSAIDS give minimal relief REVIEW OF SYSTEMS: Abdomen: No abdominal pain, nausea, vomiting, diarrhea, or constipation. No bloating, early satiety, indigestion, or increased flatulence. Bladder: No dysuria, gross hematuria, urinary frequency, urinary urgency, or incontinence. Breast: No breast lumps, nipple d/c, overlying skin changes, redness or skin retraction. Allergies and current medication updated:Yes I have reviewed and updated the patient's medical, surgical, and family histories as well as the medication AND allergy lists. O: BP 110/70 Ht 5' 2 (1.575 m) Wt 133 lb (60.3 kg) LMP 07/20/2018 BMI 24.33 kg/m? EXAM: GENERAL: pleasant, female in no apparent distress HEENT: Normocephalic, atraumatic, mucus membranes moist and no lesions NECK: Supple and full range of motion DERMATOLOGY: Normal, without lesions, non-icteric and non-hirsute BREAST: soft, non-tender, symmetric, no dominant mass, normal nipple-areolar complex, no lymphadenopathy and no nipple discharge CHEST: Normal inspiratory effort ABDOMEN: soft, non-tender and no masses PELVIC: external genitalia normal, normal Bartholin's glands, urethra, [place]'s glands, no vulvar lesions, no cervical lesions, good vaginal support, normal appearing perineal body and perianal region, moderate amount yellow discharge noted BIMANUAL: uterus normal size, shape and consistency, no adnexal masses and non-tender RECTOVAGINAL: deferred. 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 Pt would like to try Mirena, written info give FU for insertion pending ins coverage Brigitte Main APRN.BABY COUNSELOR Normal [facility] Vital Signs Date Time Vital Sign Value Performing Clinician Faci lity 05-17-2022 15:15-0500 Diastolic blood pressure 59 mm[Hg] PHYSICIAN NO [facility] 05-17-2022 15:15-0500 Heart rate 67 /min PHYSICIAN NO [facility] 05-17-2022 15:15-0500 Respiratory rate 15 /min PHYSICIAN NO [facility] 05-17-2022 15:15-0500 SaO2% (BldA) [Mass fraction] 99 % PHYSICIAN NO [facility] 05-17-2022 15:15-0500 Systolic blood pressure 111 mm[Hg] PHYSICIAN NO [facility] 05-17-2022 11:45-0500 Body height 160.02 cm PHYSICIAN NO [facility] 05-17-2022 11:45-0500 Body temperature 98 [degF] PHYSICIAN NO [facility] 05-17-2022 11:45-0500 Body weight 58 kg PHYSICIAN NO [facility] 02-15-2021 07:23-0400 Body temperature 98.1 [degF] Nash Mera APRN - CNM Work Phone: [employer] Work Phone: 02-15-2021 07:23-0400 Diastolic blood pressure 59 mm[Hg] Nash Mera APRN - CNM Work Phone: [employer] Work Phone: 02-15-2021 07:23-0400 Heart rate 71 /min Nash Floro WELDING INSTRUCTOR - CNM Work Phone: [employer] Work Phone: 02-15-2021 07:23-0400 Respiratory rate 16 /min Nash Mera APRN - CNM Work Phone: [employer] Work Phone: 02-15-2021 07:23-0400 Systolic blood pressure 98 mm[Hg] Nash Mera APRN - [employer] Work Phone: [employer] Work Phone: 02-13-2021 20:25-0400 SaO2% (BldA) [Mass fraction] 97 % Nash Mera APRN - CNM Work Phone: [employer] Work Phone: 02-12-2021 15:50-0400 Body height 157.5 cm Nash Mera APRN - [employer] Work Phone: [employer] Work Phone: 02-12-2021 15:50-0400 Body mass index (BMI) [Ratio] 33.29 kg/m2 Nash Mera APRN - CNM Work Phone: [employer] Work Phone: 02-12-2021 15:50-0400 Body weight 82.56 kg Nash Mera APRN - CNM Work Phone: [employer] Work Phone: Encounters Encounter Date Encounter Type Care Provider Facility Start: 06-04-2023 ambulatory NASH L FLORO Not Malinda ilable Start: 05-14-2023 End: 05-15-2023 ambulatory NASH L FLORO Not Available Start: 04-21-2023 End: 04-21-2023 Emergency department patient visit PHYSICIAN NO FAMILY Facility:[facility] Start: 10-19-2022 End: 10-19-[address] NONE LISTED REQUEST Facility: Start: 05-26-2022 ambulatory Alize Jefferson RN NURS E [employer] INS[employer] Comment on above: Muscle Aches Start: 05-24-2022 End: 05-25-2022 Emergency department patient visit IKE HASTINGS Facility:[facility] Start: 05-23-2022 End: 05-23-2022 ambulatory GONZALEZ POWELL [facility] Start: 05-17-2022 End: 05-17-2022 Emergency department patient visit Reggie Maynard Facility:[facility] Start: 05-17-2022 End: 05-17-2022 Emergency department patient visit PHYSICIAN MELISSA CHRISTIE [facility] Start: 05-01-2022 End: 05-01-[address] NONE LISTED REQUEST Facility: Start: 05-01-2021 End: 05-02-2021 ambulatory REFERRED SELF Facility:[facility] Start: 02-12-2021 End: 02-15-2021 Evaluation and management of inpatient NASH MERA [facility] Start: 02-12-2021 End: 02-15-2021 Evaluation and management of inpatient Nash Mera WELDING INSTRUCTOR - CN Work Phone: [facility] Labor and Delivery Comment on above: S/P primary low arredondo sverse (Primary Dx) Start: 08-20-2018 End: 08-23-2018 Patient encounter procedure BRIGITTE BA [facility] Luis Procedures Date Procedure Procedure Detail Performing Clinician Start: 02-14-2021 Blood count hemoglobin Nash Mera WELDING INSTRUCTOR - CNM Work Phone: Start: 02-13-2021 Antibody screen Nash Mera WELDING INSTRUCTOR - CNM Work Phone: Start: 02-13-2021 Blood typing serolog ic abo Fernando Hooks MD Work Phone: Start: 02-12-2021 Blood count complete auto&auto difrntl wbc Nash Mera WELDING INSTRUCTOR - CNM Work Phone: Start: 02-12-20[address] class li [address] a Nash Mera WELDING INSTRUCTOR - CNM Work Phone: Start: 01-29-2021 GBS, EXTERNAL RESULT Hi storical Provider Start: 08-15-2020 ABO, EXTERNAL RESULT Hemant Wheeler MD Start: 08-15-2020 HEPATITIS B, EXTERNA L RESULT Historical Provider Start: 08-15-2020 HIV, EXTERNAL RESULT Hemant Wheeler MD Start: 08-15-2020 Obstetric panel Histori brian Provider Start: 08-15-2020 RH FACTOR, EXTERNAL RESULT Historical Provider Start: 07-26-2020 HEPATITIS C ANTIBODY , EXTERNAL RESULT Historical Provider Start: 07-26-2020 RPR, EXTERNAL RESULT Hemant Wheeler MD H/O: section S/P primar y low transverse Nash Mera WELDING INSTRUCTOR - CNM Work Phone: H/O: section S/P primar y low transverse Nash Mear WELDING INSTRUCTOR - CNM Work Phone: Plan of Treatment Date Care Activity Detail Author Start: 02-06-2022 Influenza vaccination INFLUENZA (#1) [facility] Start: 08-20-2021 PAP TESTING PAP TESTING [facility] Start: 06-08-2021 DEPRESSION ASSESSMENT DEPRESSION ASS ESSMENT [facility] Start: 02-06-2021 Influenza vaccination Flu vaccine (# 1) [employer] Phone: Start: 2018 Screening for malign ant neoplasm of cervix Pap smear [employer] Phone: Start: 2016 DTaP/Tdap/Td vaccine (1 - Tdap) DTaP/Tdap/Td vaccine (1 - Tdap) [employer] Phone: Start: 2016 Urine microalbumin profile DTAP,TDAP,TD (1 - Tdap) [facility] Start: 2015 HEPATITIS C SCREENING HEPATITIS C SC REENING [facility] Start: 2015 HIV SCREENING HIV SCREENING [facility] Start: 2013 Screening for Chlamy graham trachomatis Chlamydia screen [employer] Phone: Start: 2012 HIV screening HIV screen [facility] Work Phone: Start: 2011 PEDS TO ADULT TRANSI TION ANNUAL ASSESSMENT PEDS TO ADULT TRANSITION ANNUAL ASSESSMENT [facility] Start: 2009 COVID-19 Vaccine (1) COVID-19 Vaccin e (1) [employer] Phone: Start: 2009 PEDS TO ADULT TRANSI TION INITIAL DISCUSSION PEDS TO ADULT TRANSITION INITIAL DISCUSSION [facility] Start: 2008 HPV vaccine (1 - 2-d ose series) HPV vaccine (1 - 2-dose series) [facility] Start: 1998 Varicella vaccine (1 of 2 - 2-dose childhood series) Varicella vaccine (1 of 2 - 2-dose childhood series) [employer] Phone: Start: 1997 COVID-19 VACCINE (#1) COVID-19 VACCI NE (#1) [facility] Start: 1997 HEPATITIS B (1 of 3 - 3-dose series) HEPATITIS B (1 of 3 - 3-dose series) [facility] Start: 1997 Hepatitis C screening [facility]: Bacteria identified in Urine by Culture [facility] Oxygen therapy [[facility]ini [facility] Data Set] Initiate Oxygen Therapy Protocol Respiratory Care Routine Daily until discontinued starting 02/13/2021 [employer] Phone: Comment on above: Daily until disconti nued starting 02/13/2021 Patient Education Abdominal Pain , Adult ED [facility] Work Phone: Patient referral [facility] Work Phone: Spirometry panel Incentive blanka metry Respiratory Care Routine Every 2hr while awake until discontinued starting 02/13/2021 [employer] Phone: Comment on above: Every 2hr while awak e until discontinued starting 02/13/2021 Immunizations Immunization Date Immunization Notes Care Provider Austyn knott 02-13-2021 diphtheria, tetanus toxoids and acellular pertussis vaccine, unspecified formulation Nash Mera APRN - BRADY Work Phone: [employer] Phone: 02-13-2021 measles, mumps and rubella virus vaccine Nash Mera WELDING INSTRUCTOR - CNM Work Phone: [facility] Work Phone: Payers Date Payer Category Payer Self-pay [address] [facility] MEDICAID [facility] COMMUNITY PLAN MEDICAID [facility] [id number] 2021-Present [phone] [address] [place] [address] Medicaid [id number] 1997 Unknown [id number] 1997 Unknown [id number] 1997 Unknown [id number] 1997 Unknown [id number] 1997 Unknown [id number] 1259 1997 Unknown [id number] 1259 1997 Unknown [id number] 1259 1959 Private Health Insurance [id number] 1959 Unknown [id number] Unknown [id number] Unknown [id number] 531 Social History Date Type Detail Facility Start: 08-20-2018 End: 02-13-2021 Tobacco smoking status [facility] Never smoker [facility] Start: 08-20-2018 End: 02-13-2021 Tobacco use and exposure Never used [facility] Start: 02-13-2021 Alcohol intake Ex-drinker (finding) [employer] Phone: Start: 1997 Sex Assigned At Not on file [employer] Phone: Exposure to SARS-CoV -2 (event) Not sure [facility] Start: 05-17-2022 Tobacco smoking stat us NHIS Smoker (finding) [facility] Start: 1997 Sex Assigned At Female F [facility] Start: 05-24-2022 Alcohol intake Current drinke r of alcohol (finding) [facility] Start: 08-20-2018 Tobacco Comment Smokes radhames--smokeless cigs. [facility] Start: 08-20-2018 Alcohol Comment a couple times per month [facility] Clinical Note 06-06-2022 Note Date & Type Note Facility 06-06-2022 Note Please notify herman timmons that all of her labs are normal. We will proceed with EGD for further evaluation as planned. She needs to follow up with her PCP or whoever ordered the UA. This was not ordered by us and is abnormal. Please advise patient to follow up with ordering provider. [facility] Note 05-26-2022 Telephone Encounter - Alize Jefferson RN - 05/26/2022 10:53 PM EST Note Date & Type Note Facility 05-26-2022 Miscellaneous Notes Formattin g of this note might be different from the original. Reason for Call: pt does not have a current PCP and is having worsening symptoms since seen in ED on 05/24/22 Outcome: Advised to return to ED now, agreeable. documented in this encounter [facility] Progress note 05-23-2022 Note Date & Type Note Facility 05-23-2022 Note ------ Attestation signed by Gonzalez Powell MD at 05/23/2022 7:30 PM I personally saw and examined the patient on the same date of service as resident/fellow . I discussed the findings and therapeutic plan with the resident/fellow . I agree with the documentation, except for any edits/updates below. ------ [facility] Gastroenterology History & Physical CHIEF COMPLAINT Chief Complaint Patient presents with New Patient Fatigue Had gallbladder removed in 03/2021, Dr. Powell found and fixed leak 04/2021, pt is having major problems with eating and drinking. Was referred back in 2020 HISTORY OF PRESENT ILLNESS: Jovon Lopez is a 27 y.o. female with history laparoscopic cholecystectomy on 03/25/2021 at [facility] (in setting of cholecystitis) complicated by biliary leak status post biliary stent on 03/28/2021 and transferred back to [place]. While there, she had worsening abdominal pain and had CT abdomen/pelvis revealed presence of free fluid in the abdominal space, as well as pneumoperitoneum, as well as evidence of possible pneumonia. Patient underwent paracentesis on 03/29 which showed 800 cc of bilious fluid. Interval 05/23/22: Patient reports that in the last 3 months she started having NV and epigastric pain. She went to the ED and had CT and labs that were unremarkable. She started taking peptobismol and omeprazole with some improvement up until and she had another flare. She is worried this could be pancreatitis. She reports stool was yellowish and occasional black stools with the peptobismol. She reports having 3 loose stools per day, which is improved from 5 times in the past. She denies pain right now. She has epigastric pain only with food. She smokes marijuana daily. Symptoms do improve with hot showers. She has associatednausea and vomiting. PREVIOUS LABS/IMAGING/ENDOSCOPY: ERCP 03/2021: Impression: Cystic duct stump leak was seen on initial cholangiogram. Biliary sphincterotomy was performed. A 10 Belarusian X 9 cm plastic biliary stent was deployed into common hepatic. ERCP 04/2021: IMPRESSION: 1. Successful removal of previously placed plastic biliary stent. 2. The CBD was selectively cannulated. Using 9-12 mm injecting above balloon catheter an occlusive cholangiogram was obtained, which did not show any sign of bile duct leak. Multiple balloon sweeps were performed and one small CBD stone was removed. The final cholangiogram did not show any filling defect or bile leak. HISTORY: Problem list: Patient Active Problem List Diagnosis Bile leak Biliary anastomotic leak Encounter for induction of labor intolerance to labor, delivered, current hospitalization History of miscarriage Hx of chlamydia infection Postoperative pain S/P primary low transverse Term Past Medical History: History reviewed. No pertinent past medical history. Past Surgical History: History reviewed. No pertinent surgical history. FAMILY HISTORY: No family history on file. SOCIAL HISTORY: Social History Tobacco Use Smoking status: Former Types: Cigarettes Smokeless tobacco: Current Substance Use Topics Alcohol use: Not Currently Drug use: Yes Types: Marijuana ALLERGIES: Morphine and Penicillins Current Medications: Current Outpatient Medications: pantoprazole (ProtoNix) 40 mg EC tablet, take 1 tablet by mouth once daily for 2 weeks, Disp: , Rfl: I reviewed and reconciled this patient's medication list today. The list included in this note is the most up to date list that I can attest to at this time based on the information that the patient has provided me and the electronic medical record. REVIEW OF SYSTEMS: See HPI, otherwise ROS as below CONSTITUTIONAL: negative HEENT: negative RESPIRATORY: negative CARDIOVASCULAR: negative GASTROINTESTINAL: As in HPI GENITOURINARY: negative INTEGUMENT/BREAST: negative MUSCULOSKELETAL: negative NEUROLOGICAL: negative BEHAVIOR/PSYCH: negative PHYSICAL EXAM: Vitals: 05/23/22 1017 BP: 98/72 BP Location: Left arm Patient Position: Sitting BP Cuff Size: Adult Pulse: 84 SpO2: 100% Weight: 58.7 kg (129 lb 4.8 oz) Height: 1.575 m (5' 2 ) Body mass index is 23.65 kg/m???. CONSTITUTIONAL: awake, alert and no apparent distress EYES: pupils equal, round and reactive to light; conjunctiva pink and normal appearing ENT: oral pharynx with moist mucus membranes HEMATOLOGIC/LYMPHATICS: no cervical lymphadenopathy and no supraclavicular lymphadenopathy LUNGS: no increased work of breathing, good air exchange, clear to auscultation bilaterally, no crackles or wheezing CARDIOVASCULAR: regular rate and rhythm, normal S1 and S2, no murmur noted and no edema ABDOMEN: normal bowel sounds, soft, (more content not included)... [facility] History of Present illness Narrative 02-15-2021 Lila Mcintosh RN - 02/15/2021 2:17 PM EDLila Bowman RN - 02/15/2021 12:00 PM Kyra Juárez APRN - CNM - 02/15/2021 9:51 AM Kyra Juárez APRN - CNM - 02/14/2021 8:16 AM EDT Note Date & Type Note Facility 02-15-2021 History of Present illness Narrative RN calls patient and updates her that her follow up appointment and baby's follow up appointment are made (pt had requested RN make appointments for her) - updated of dates and times of appointments. Maternal and discharge instructions explained to both parents - both v.u. C/S Labor and Delivery Post Progress Note SUBJECTIVE: Patient breast-feeding upon me entering room this morning. Patient denies needs or concerns and states she is ready to go home today. Patient does have a follow-up appointment with Lani Flatus:Present BM:no Diet: Tolerating regular diet Ambulation: Ambulateswithout difficulty OBJECTIVE: Vitals: BP (!) 98/59 Pulse 71 Temp 98.1 F (36.7 C) (Oral) Resp 16 Ht 5' 2 (1.575 m) Wt 182 lb (82.6 kg) SpO2 97% Unknown BMI 33.29 kg/m Patient Vitals for the past 24 hrs: BP Temp Temp src Pulse Resp 02/15/21 0723 (!) 98/59 98.1 F (36.7 C) Oral 71 16 02/15/21 0325 108/66 98.2 F (36.8 C) 72 16 02/14/21 2002 100/61 98 F (36.7 C) 74 16 02/14/21 1558 (!) 108/59 98.1 F (36.7 C) 79 16 02/14/21 1118 99/64 98.1 F (36.7 C) 71 20 ABDOMEN: No scars, normal bowel sounds, soft, non-distended, non-tender, no masses palpated, no hepatosplenomegally INCISION: dressing in place, clean, dry and intact GENITAL/URINARY: Uterus: Size normal, Contour normal, Position normal Cor: RRR no Murmurs Pulmonary: clear to auscultation anterior and posterior Extremities: no Clubbing cyanosis or ecchymosis DATA: ASSESSMENT: Active Problems: Encounter for induction of labor Term intolerance to labor, delivered, current hospitalization S/P C/S post op day # 2 PLAN: Discharge home today C/S Labor and Delivery Post Progress Note SUBJECTIVE: Patient doing well today. Patient had a baby boy she is breast-feeding but forgot her pump I did review with her that the area development consultant can review pump usage with her Flatus:Present BM:no Diet: Tolerating regular diet Ambulation: Ambulateswithout difficulty OBJECTIVE: Vitals: BP 98/67 Pulse 67 Temp 98.5 F (36.9 C) Resp 14 Ht 5' 2 (1.575 m) Wt 182 lb (82.6 kg) SpO2 97% Unknown BMI 33.29 kg/m Patient Vitals for the past 24 hrs: BP Temp Pulse Resp SpO2 02/14/21 0458 98/67 98.5 F (36.9 C) 67 14 02/14/21 0037 118/76 98.2 F (36.8 C) 75 02/13/212110 107/78 98.2 F (36.8 C) 68 18 02/13/212055 111/75 68 02/13/212040 104/66 75 02/13/212026 100/60 70 02/13/212024 97 % 02/13/212014 109/73 97.8 F (36.6 C) 78 16 94 % 02/13/211999 107/72 76 16 96 % 02/13/211954 108/68 70 16 96 % 02/13/21 194 112/70 78 16 95 % 02/13/21 193 (!) 103/59 88 16 96 % 02/13/21 1930 87 16 97 % 02/13/21 192 (!) 136/59 84 16 92 % 02/13/21 1919 122/60 92 16 99 % 02/13/21 1532 114/71 98.1 F (36.7 C) 83 16 02/13/21 1438 111/77 83 18 02/13/21 1358 103/60 68 16 02/13/21 1321 113/73 74 18 02/13/21 1246 (!) 100/58 98.1 F (36.7 C) 72 16 02/13/21 1224 101/65 82 16 02/13/21 1159 104/70 86 18 02/13/21 1125 112/74 82 16 02/13/21 1054 100/61 81 18 02/13/21 0939 119/66 92 02/13/21 0938 98.1 F (36.7 C) 18 ABDOMEN: No scars, normal bowel sounds, soft, non-distended, non-tender, no masses palpated, no hepatosplenomegally INCISION: dressing in place, clean, dry and intact GENITAL/URINARY: Uterus: Size normal, Contour normal Cor: RRR no Murmurs Pulmonary: clear to auscultation anterior and posterior Extremities: no Clubbing cyanosis or ecchymosis DATA: Hemoglobin/Hematocrit: Lab Results Component Value Date HGB 11.4 02/14/2021 HCT 33.3 02/12/2021 ASSESSMENT: Active Problems: Encounter for induction of labor Term intolerance to labor, delivered, current hospitalization S/P C/S post op day # 1 PLAN: Continue care Able to bend both knees, states tingling in both legs and feet Able to rotate left lower extremity, able to bend right lower extremity at knee Joint Runner Note: senior office assistant/surgical specialist primary section with Dr Hooks Closed SQ layer and also closed skin incision. All edges approximated, no bleeding or drainage noted. psychiatric tech places sterile dressing over incision. Patient tolerated well. Able to rotate right lower extremtie, unable to move left lower extremity at this time. 1624 call received at my office from nursing staff that patient was having variables and late decelerations. Patient was on her back when they started, nurses repositioned patient, discontinued pitocin infusion and then stated after repositioning baby had no more decelerations. RN reported strip was a category 1 tracing and baby was recovered from decels. Pitocin remains off. 1717 enroute to [facility] I called Dr Hooks. I reported to him what nursing report was. He stated he had just seen the tracing and we should proceed with a primary section due to intolerance to labor, and failure to progress. I then called the patient in her room and discussed with her the tracing, decelerations, later decelerations, and baby's intolerance of labor and pitocin. PVU and all questions answered. Patient is in agreement to proceed with primary section. Dr Hooks notified and he communicated with surgery team to proceed with surgery at approximately 1800. Able to feel touch down to toes, unable to move lower extremities at this time. Last FRIED notified that Dr. Hooks is going to do as soon as Tod ABREU arrives. Yohana Silvestre CRNA present in department. Surgery notified that customer liaison and recovery nurse needed for impending . documented in this encounter [employer] Phone: Hospital Discharge instructions 02-15-2021 Instructions Note Date & Type Note Facility 02-15-2021 Hospital Discharg e instructions Lila Mcintosh RN - 02/15/2021 Follow-up with your OB doctor as specified. [facility] OB Department phone: Dr. Neva Smith CNM Dr. Brittani Espinoza [facility] [address] [facility] [address] [place] Lani Mera, MSN, WELDING INSTRUCTOR, CNM [address] [address] DIET Eat a well balanced diet focusing on foods high in fiber and protein. Drink plenty of fluids especially water. To avoid constipation you may take a mild stool softener as recommended by your doctor or diagrammer and seamer. ACTIVITY Gradually increase your activity. Resume exercise regimen only after advice by your doctor or diagrammer and seamer. Avoid lifting anything heavier than a gallon of milk for SIX weeks. Avoid driving until your doctor or diagrammer and seamer has given their approval. Rise slowly from a lying to sitting and then a standing position. Climb stairs one at a time. Use caution when carrying your baby up and down the stairs. NO SEXUAL Activity for 4-6 weeks or until advised by your doctor; Nothing in vagina: intercourse, tampons, or douching. Be prepared to discuss family planning at your follow-up OB visit. You may feel tired or have a lack of energy. You may continue your vitamin to replenish nutrients post delivery. Nap when baby naps to catch up on sleep. EMOTIONS You may feel ledbetter, sad, teary, & overwhelmed. Contact your OB provider if you feel you may be showing signs of depression, or have thoughts of harming yourself or your . If will not stop crying, contact another adult for help or place in their crib on their back and take a break. NEVER shake your . BLEEDING Vaginal bleeding will decrease in amount over the next few weeks. You will notice that as your activity increases, your flow may increase. This is your body's way of telling you, you need to take things easier and rest more often. Call your care provider if you are saturating more than one maxi pad in an hour & resting does not help. BREAST CARE Take medications as recommended by your doctor or diagrammer and seamer for pain If you develop a warm, red, tender area on your breast or develop a fever contact your OB provider. For moms: If you become engorged, feeding may be more difficult or painful for 1-2 days. You may find it helpful to hand express some milk so that the infant can latch on more easily. 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 Refer to the booklet in the folder/binder for more information. If you feel you need more assistance or have questions, please call Loreta Reyes IBCLC, area development consultant, at or the OB department to schedule an appointment or phone consultation. For more FREE help, visit the Support Group on Thursday evenings at 7 pm in the OB department. For NON- moms: You may apply ice packs to your breasts over your bra for twenty minutes at a time for comfort. Avoid stimulation to your breasts, when showering allow the water to strike your back not your breasts. Wear a good fitting bra until your milk dries, such as a sports bra. [place] CARE If you have an acticoat dressing in place after your please leave your dressing in place for one week until you follow up with your provider. They will remove this dressing in the office when you see them. If your dressing starts to peel up or becomes soiled prior to your appointment with your provider, you may remove the dressing and clean your incision as directed below. Clean your incision in the shower with mild soap. After shower pat the incision area dry and allow the area open to air. If used, Steri-strips should be completely removed by 2 weeks but you may remove them as they become loose or soiled. If used, [place] should be removed by your care provider. If used/ordered, an abdominal binder may provide support for your incision. Use the hawa-bottle after toileting until bleeding stops. Cleanse your perineum from front to back If used, stitches will dissolve in 4-6 weeks. You may use a sitz bath or soak in a clean tub as needed for comfort. Kegel exercises will help restore bladder control. SWELLING Try to keep your legs elevated when you are sitting. When lying down keep your legs elevated. When wearing stocking or socks, make sure they are not too tight. WHEN TO CALL THE DOCTOR If you have a temp of 100.6 or more. If your bleeding has increased and you are saturating a pad in an hour. Your abdomen is tender to touch. You are passing blood clots bigger than the size of a lemon. If you are experiencing extreme weakness or dizziness. If you are having flu-like symptoms such as achy muscles or joints. There is a foul smell or a green color to your vaginal bleeding. If you have pain that cannot be relieved. You have persistent burning or frequency with urination. Call if you have concerns about your well-being. You are unable to sleep, eat, or are having thoughts of harming yourself or your baby. You have swelling, bleeding, drainage, foul odor, redness, or warmth in/around your incision or stitches. You have a red, warm, tender area in your calf. documented in this encounter [employer] Phone: Hospital course Narrative 02-15-2021 Kyra Smith APRN - [facility] - 02/15/2021 10:02 AM EDT Note Date & Type Note Facility 02-15-2021 Hospital course Narrative Obstetrical Discharge Form Gestational Age:37w6d Antepartum complications: Hydropic gallbladder Date of Delivery: 02/13/21 Type of Delivery: P C/S Delivered By: Dr. Hooks Assisted By:Juan REED Baby: male Anesthesia: spinal Intrapartum complications: Non-reassuring Status Feeding method: breast Blood type: A POSITIVE Rubella: No results found for: RUBG T. Pallidium, IGG: No results found for: TREPG Hepatitis B Surface Antigen: No results found for: HEPBSAG HIV: No results found for: [id number] Results for orders placed or performed during the hospital encounter of 02/12/21 GBS, External Result Result Value Ref Range GBS, External Result Negative DRUG SCREEN MULTI URINE Result Value Ref Range Amphetamine Screen, Ur NEGATIVE NEGATIVE Barbiturate Screen, Ur NEGATIVE NEGATIVE Benzodiazepine Screen, Urine NEGATIVE NEGATIVE Cocaine Metabolite, Urine NEGATIVE NEGATIVE Methadone Screen, Urine NEGATIVE NEGATIVE Opiates, Urine NEGATIVE NEGATIVE Phencyclidine, Urine NEGATIVE NEGATIVE Propoxyphene, Urine NEGATIVE NEGATIVE Cannabinoid Scrn, Ur NEGATIVE NEGATIVE Oxycodone Screen, Ur NEGATIVE NEGATIVE Methamphetamine, Urine NEGATIVE NEGATIVE Tricyclic Antidepressants, Urine NEGATIVE NEGATIVE MDMA, Urine NOT REPORTED NEGATIVE Buprenorphine Urine NEGATIVE NEGATIVE Test Information NOT REPORTED CBC auto differential Result Value Ref Range WBC 8.3 3.5 - 11.3 k/uL RBC 3.76 (L) 3.95 - 5.11 m/uL Hemoglobin 10.7 (L) 11.9 - 15.1 g/dL Hematocrit 33.3 (L) 36.3 - 47.1 % MCV 88.6 82.6 - 102.9 fL MCH 28.5 25.2 - 33.5 pg MCHC 32.1 28.4 - 34.8 g/dL RDW 13.9 11.8 - 14.4 % Platelets 229 138 - 453 k/uL MPV 11.5 8.1 - 13.5 fL NRBC Automated 0.0 0.0 per 100 WBC Differential Type NOT REPORTED Seg Neutrophils 73 (H) 36 - 65 % Lymphocytes 20 (L) 24 - 43 % Monocytes 5 3 - 12 % Eosinophils % 1 1 - 4 % Basophils 0 0 - 2 % Immature Granulocytes 1 (H) 0 % Segs Absolute 5.99 1.50 - 8.10 k/uL Absolute Lymph # 1.67 1.10 - 3.70 k/uL Absolute Trego # 0.44 0.10 - 1.20 k/uL Absolute Eos # 0.11 0.00 - 0.44 k/uL Basophils Absolute <0.03 0.00 - 0.20 k/uL Absolute Immature Granulocyte 0.05 0.00 - 0.30 k/uL WBC Morphology NOT REPORTED RBC Morphology NOT REPORTED Platelet Estimate NOT REPORTED Hepatitis C Antibody, External Result Result Value Ref Range Hepatitis C Antibody, External Result Negative RPR, External Lab Result Value Ref Range RPR, External Result Non-Reactive HIV, External Result Result Value Ref Range HIV, External Result Non-Reactive Hepatitis B, External Result Result Value Ref Range Hep B, External Result Negative PROFILE I Result Value Ref Range ABO/Rh A Positive Hemoglobin Result Value Ref Range Hemoglobin 11.4 (L) 11.9 - 15.1 g/dL Rh Factor, External Result Result Value Ref Range Rh Factor, External Result Positive ABO, External Result Result Value Ref Range ABO, External Result A TYPE AND SCREEN Result Value Ref Range Expiration Date 02/16/2021,2359 Arm Band Number [id number] ABO/Rh A POSITIVE Antibody Screen NEGATIVE complications: none Discharge Medication: Jovon [facility] [place] Medication Instructions [place]:[id number] Printed on:02/15/21 [facility] Medication Information docusate sodium (COLACE) 100 MG capsule Take 100 mg by mouth 2 times daily ferrous sulfate (IRON 325) 325 (65 Fe) MG tablet Take 325 mg by mouth daily (with breakfast) ibuprofen (ADVIL;MOTRIN) 800 MG tablet Take 1 tablet by mouth every 8 hours oxyCODONE-acetaminophen (PERCOCET) 5-325 MG per tablet Take 1 tablet by mouth every 8 hours as needed for Pain for up to 3 days. Vit-Fe Fumarate-FA ( VITAMINS PO) Take by mouth Admit date: 02/12/2021 3:14 PM Discharge Date: 02/15/2021 Discharged to: Home in stable condition Plan: Follow up in 1 week(s) for incision check, breast feeding check and post depression check documented in this encounter [employer] Phone: Evaluation note Note Date & Type Note Facility Evaluation note Diagnosis S/P primary low transverse - Primary delivery, without mention of indication, unspecified as to episode of care Encounter for induction of labor Term intolerance to labor, delivered, current hospitalization Abnormality in heart rate/rhythm, delivered, with or without mention of antepartum condition documented in this encounter [facility] Phone: Evaluation note Note Date & Type Note Facility Evaluation note No assessment information availa marcelina [facility] Work Phone: Hospital Discharge instructions Note Date & Type Note Facility Hospital Discharge instructions Additional Instructions Follow-up with GI doctor provided Return to the ED if develop worsening symptoms or concerns take the new medications as prescribed, use pepto bismol, tums as needed avoid any spicy foods, fatty foods and avoid alcohol [facility] Work Phone: Summary Purpose Family History No Family History Records FoundNo Family History Records FoundNo Family History Records FoundNo Family History Records FoundNo Family History Records FoundNo Family History Records FoundNo Family History Records FoundNo Family History Records FoundNo Family History Records Found Advance Directives No Advanced Directives Records FoundLatest Code Status on File Code Status Date Activated Date Inactivated Comments Full Code 02/13/2021 7:50 PM Full Code 02/13/2021 5:21 PM 02/13/2021 7:50 PM Full Code 02/12/2021 3:23 PM 02/13/2021 5:16 PM Advance Directive Response Recorded Date/ Time Advance Directives No May 1:45pm Chief Complaint and Reason for Visit Chief Complaint Severe stomach pain HX gullbladder removal Additional Source Comments INFORMATION SOURCE (unrecogn ized section and content) DATE CREATED AUTHOR 08/25/2018 [facility] DATE CREATED AUTHOR AUTHOR'S ORGANIZ ATION 02/16/2021 [facility] DATE CREATED AUTHOR AUTHOR'S ORGANIZ ATION 05/21/[address] [facility] DATE CREATED AUTHOR AUTHOR'S ORGANIZ ATION 05/27/2021 [facility] Specialist DATE CREATED AUTHOR AUTHOR'S ORGANIZ ATION 05/30/2022 [facility] DATE CREATED AUTHOR AUTHOR'S ORGANIZ ATION 07/17/2022 [facility] DATE CREATED AUTHOR AUTHOR'S ORGANIZ ATION 10/22/2022 [facility] DATE CREATED AUTHOR AUTHOR'S ORGANIZ ATION 05/02/2023 [facility] DATE CREATED AUTHOR AUTHOR'S ORGANIZ ATION 06/06/2023 [facility] dical Specialists EPIC Reason for Visit (unrecogniz ed section and content) Reason Comments Scheduled Induction Cytotec Induction Status Reason Specialty Diagnoses / Procedures Referre d By Contact Referred To Contact Diagnoses Encounter for induction of labor Term Nash Mera, SAEID - CNM [address] [place] [address] [facility] Reason Comments Muscle Aches Ordered Prescriptions (unrec ognized section and content) Prescription Sig Dispensed Refills Start Date End Da te ibuprofen (ADVIL;MOTRIN) 800 MG tablet Take 1 tablet by mouth every 8 hours 60 tablet 0 02/15/2021 oxyCODONE-acetaminophen (PERCOCET) 5-325 MG per tabletIndications:S/P primary low transverse Take 1 tablet by mouth every 8 hours as needed for Pain for up to 3 days. 9 tablet 0 02/15/2021 02/18/2021 Scheduled Active and Recently Administ ered Medications (unrecognized section and content) Medication Order 02/13/2021 02/14/2021 02/15/2021 citric acid-sodium citrate (BICITRA) solution 30 mL (COMPLETED) 30 mL, Oral, ONCE, On Thu02/13/21 at 1745, For 1 dose, Give prior to epidural placement., Pre-op (day of surgery) 1735 (Given - Provider: Claudine Benavides RN) clindamycin (CLEOCIN) 900 mg in dextrose 5 % 50 mL IVPB (COMPLETED) 900 mg, IntraVENous, RAILROAD CAR INSPECTOR TO O.R., 1 dose, On Thu02/13/21 at 1745, Administer within 1 hour prior to incision., Labor and Delivery (Signed and Held) 1735 (New Bag - Provider: Claudine Benavides RN)1835 (Stopped - Provider: Marlene Ceballos RN - Comment: stopped on previous shift) docusate sodium (COLACE) capsule 100 mg 100 mg, Oral, 2 TIMES DAILY, First dose on Thu02/13/21 at 2100, Do not crush or break., 2099 (Due) 0927 (Given - Provider: Claudine Benavides, HALLE)1957 (Given - Provider: Deja Villalobos, RN) 0740 (Given - Provider: Lila Mcintosh, RN)2100 (Due) enoxaparin (LOVENOX) injection 40 mg 40 mg, SubCUTAneous, DAILY, First dose on Megan 02/14/21 at 0745, 0724 (Given - Provider: Claudine Benavides, RN) 0739 (Given - Provider: Lila Mcintosh, RN) famotidine (PEPCID) injection 20 mg (COMPLETED) 20 mg, IntraVENous, ONCE, On Thu02/13/21 at 1745, For 1 dose, Give 60 minutes before surgery., Pre-op (day of surgery) 1734 (Given - Provider: Claudine Benavides RN) ibuprofen (ADVIL;MOTRIN) tablet 800 mg 800 mg, Oral, EVERY 8 HOURS, First dose on Megan 02/14/21 at 2000, Do not start till 6 hours after last dose of toradol. Do not crush or break., Post-op 0040 (Given - Provider: Deja Villalobos, HALLE)0400 (Due)1257 (Given - Provider: Lila Mcintosh, HALLE)2000 (Due) ketorolac (TORADOL) injection 30 mg (COMPLETED) 30 mg, IntraVENous, EVERY 6 HOURS, First dose on Megan 02/14/21 at 0100, For 4 doses, Do not administer for more than 5 days., 0037 (Given - Provider: Marlene Ceballos, HALLE)0637 (Given - Provider: Bobbi Devi RN)1236 (Given - Provider: Claudine Benavides, HALLE)1958 (Given - Provider: Deja Villalobos, HALLE) metoclopramide (REGLAN) injection 10 mg (COMPLETED) 10 mg, IntraVENous, ONCE, On Thu02/13/21 at 1745, For 1 dose, Give 60 minutes before surgery., Pre-op (day of surgery) 1734 (Given - Provider: Claudine Benavides, HALLE) miSOPROStol (CYTOTEC) pre-split tablet TABS 25 mcg (CANCELED) 25 mcg, Vaginal, EVERY 4 HOURS, First dose on Thu02/12/21 at 1545, Place posterior fornix/vagina, insert every 3-6 hours PRN. Avoid tachysystole. Can administer Oxytocin 4 hours after last dose. Maximum of 6 doses in 24 hours., Labor and Delivery 0013 (Given - Provider: Marlene Ceballos, RN)0451 (Given - Provider: Linette Lee, HALLE)0745 (Due)1145 (Due)1545 (Due) vitamin 27-1 MG tablet 1 tablet 1 tablet, Oral, DAILY, First dose on Thu02/13/21 at 2015, Begin when normal bowel activity resumes., 1952 (Not Given - Provider: Marlene Ceballos, RN - Reason: Other) 0927 (Given - Provider: Claudine Benavides, RN) 0740 (Given - Provider: Lila Mcintosh RN) sodium chloride flush 0.9 % injection 10 mL 10 mL, IntraVENous, EVERY 12 HOURS SCHEDULED (2 times per day), First dose on Thu02/13/21 at 2100, 2100 (Due) 0900 (Due)2100 (Due) 0900 (Due)2100 (Due) Rslskgq-Ubkear-Eawaa Pertussis (BOOSTRIX) injection 0.5 mL 0.5 mL, IntraMUSCular, PRIOR TO DISCHARGE, Starting on Thu02/13/21 at 1949, For 1 dose, If not previously administered during at 27-36 weeks as recommended by CDC., Continuous Medication Order 02/13/2021 02/14/2021 02/15/2021 lactated ringers infusion (CANCELED) IntraVENous, at 125 mL/hr, CONTINUOUS, Starting on Thu02/12/21 at 1545, Labor and Delivery 0952 (New Bag - Provider: Adela Alvarado, HALLE)1550 (New Bag - Provider: Claudine Benavides, HALLE)1606 (Rate/Dose Change - Provider: Adela Alvarado, HALLE)1644 (Rate/Dose Change - Provider: Claudine Benavides, HALLE)1730 (Rate/Dose Change - Provider: Claudine Benavides RN) lactated ringers infusion (CANCELED) IntraVENous, at 125 mL/hr, CONTINUOUS, Starting on Thu02/13/21 at 1745, Labor and Delivery (Signed and Held) 1805 (New Bag - Provider: Ltuher Baiera, WELDING INSTRUCTOR - APPEALS REPRESENTATIVE)1912 (Anesthesia Volume Adjustment - Provider: Luther Silvestre APRN - APPEALS REPRESENTATIVE) lactated ringers infusion IntraVENous, at 125 mL/hr, CONTINUOUS, Starting on Thu02/13/21 at 2015, 0055 (New Bag - Provider: Marlene Ceballos, RN)0903 (New Bag - Provider: Maraí Vitale, HALLE) oxytocin (PITOCIN) 30 units in 500 mL infusion (CANCELED) 1-20 tonia-units/min (1-20 mL/hr), IntraVENous, at 1-20 mL/hr, CONTINUOUS, Starting on Thu02/13/21 at 1000, Begin infusion at 1 tonia-unit/min (1 tonia-unit per min = 1 mL per hour) and increase by 1 tonia-unit/min after 30 minutes. Then increase by 2 tonia-units/min as needed, no faster than every 30 minutes, until labor is achieved. Labor is defined as contractions every 2-3 minutes with cervical changes or Kneeland units (MVU) greater than 200 in a 10-minute window. Maximum infusion rate: 20 tonia-unit/min. Contact provider if maximum rate does not achieve desired response. Provider may order alternative titration goal or other clinically appropriate goal of titration rate (s). Smaller titration increments of 1 tonia-units/min, not faster than every 30 minutes, may be used when approaching therapeutic goal. 1050 (New Bag - Provider: Adela Alvarado RN)1120 (Rate/Dose Change - Provider: Adela Alvarado RN)1150 (Rate/Dose Change - Provider: Adela Alvarado RN)1220 (Rate/Dose Change - Provider: Adela Alvarado RN)1250 (Rate/Dose Change - Provider: Adela Alvarado RN)1320 (Rate/Dose Change - Provider: Adela Alvarado RN)1400 (Rate/Dose Change - Provider: Adela Alvarado RN)1450 (Rate/Dose Change - Provider: Adela Alvarado RN)1535 (Rate/Dose Change - Provider: Adela Alvarado RN)1608 (Stopped - Provider: Adela Alvarado RN)1719 (Held by provider - Provider: Fernando Hooks MD - Reason: Transfer to a Procedural area)1950 (Unheld by provider - Provider: SAEID Serrato CNM) PRN Medication Order 02/13/2021 02/14/2021 02/15/2021 0.9 % sodium chloride infusion 25 mL, IntraVENous, at 100 mL/hr, PRN, If patient receiving piggyback infusions without ordered maintenance IV fluids or with frequent/long duration piggyback infusions, Starting on Thu02/13/21 at 1949, Administer at the same rate as the piggyback being infused., acetaminophen (TYLENOL) tablet 650 mg 650 mg, Oral, EVERY 4 HOURS PRN, Pain Mild (1-3), Fever, Fever >100.5 F (38 C) or incisional pain, Starting on Thu02/13/21 at 194, Maximum dose of acetaminophen is 4000 mg from all sources in 24 hours., Post-op 1204 (Given - Provider: Claudine Benavides, HALLE) benzocaine-menthol (DERMOPLAST) 20-0.5 % spray Topical, PRN, Pain, Starting on Megan 02/14/21 at 1200, Apply to perineum 1204 (Given - Provider: Claudine Benavides, HALLE) calcium carbonate (TUMS) chewable tablet 1,000 mg (CANCELED) 1,000 mg, Oral, 3 TIMES DAILY PRN, Heartburn, Starting on Thu02/13/21 at 0027 0045 (Given - Provider: Marlene Ceballos, HALLE) carboprost (HEMABATE) injection 250 mcg 250 mcg, IntraMUSCular, PRN, bleeding, Starting on Thu02/13/21 at 1949, May repeat every 15 minutes up to a cumulative maximum dose of 1000 mcg, at physician's request., Post-op diphenhydrAMINE (BENADRYL) injection 25 mg 25 mg, IntraVENous, EVERY 6 HOURS PRN, Itching, Hives, Starting on Thu02/13/21 at 1949, lansinoh lanolin ointment Topical, EVERY 1 HOUR PRN, Dry Skin, nipple discomfort, Starting on Thu02/13/21 at 1949, Post-op 0733 (Given - Provider: Claudine Benavides, HALLE) measles, mumps & rubella vaccine (MMR) injection 0.5 mL 0.5 mL, SubCUTAneous, PRN, if non immune or equivical, Starting on Thu02/13/21 at 1948, For 1 dose, methylergonovine (METHERGINE) injection 200 mcg 200 mcg, IntraMUSCular, PRN, Bleeding, Starting on Thu02/13/21 at 1948, PRN for post- hemorrhage, if not hypertensive., miSOPROStol (CYTOTEC) tablet 800 mcg 800 mcg, Rectal, PRN, Post- Hemorrhage, Starting on Thu02/13/21 at 1948, For 1 dose, Notify Physician prior to administration., Post-op nalbuphine (NUBAIN) injection 10 mg 10 mg, IntraVENous, EVERY 4 HOURS PRN, or itching, Starting on Thu02/13/21 at 1948, Post-op naloxone (NARCAN) injection 0.4 mg 0.4 mg, IntraVENous, PRN, Opioid Reversal, Starting on Thu02/13/21 at 1948, Post-op ondansetron (ZOFRAN) injection 4 mg 4 mg, IntraVENous, EVERY 6 HOURS PRN, Nausea, nausea, Starting on Thu02/13/21 at 1948, oxyCODONE-acetaminophen (PERCOCET) 5-325 MG per tablet 1 tablet(Linked Group 1) 1 tablet, Oral, EVERY 4 HOURS PRN, Pain Moderate (4-6), Starting on Thu02/13/21 at 1948, Maximum dose of acetaminophen is 4000 mg from all sources in 24 hours., 173 (See Alternative - Provider: Pramod Hernandez LPN) 455 (See Alternative - Provider: Inna Joseph, HALLE) oxyCODONE-acetaminophen (PERCOCET) 5-325 MG per tablet 2 tablet(Linked Group 1) 2 tablet, Oral, EVERY 4 HOURS PRN, Pain Severe (7-10), Starting on Thu02/13/21 at 1948, Maximum dose of acetaminophen is 4000 mg from all sources in 24 hours., 173 (Given - Provider: Pramod Hernandez LPN - Comment: INCISION) 455 (Given - Provider: Inna Joseph, HALLE) oxytocin (PITOCIN) 30 units in 500 mL infusion (CANCELED) 87.3 tonia-units/min (87.3 mL/hr), IntraVENous, at 87.3 mL/hr, CONTINUOUS PRN, Bleeding, Starting on Thu02/13/21 at 1721, For 48 hours, Post- use ONLY after delivery of baby/ excessive bleeding/ uterine atony. Following Bolus from bag administration, reduce the rate to 87.3 mL/hr and administer remaining 20 units over 229 minutes to complete the infusion of 30 units in 500 mL. For 2 bags of pitocin, Multiphase Phase of Care 2002 (New Bag - Provider: Pramod Lantigua, RN - Comment: done per HALLE Rosario) 212 (Stopped - Provider: Inna Joseph RN - Comment: infusion complete.) sennosides-docusate sodium (SENOKOT-S) 8.6-50 MG tablet 1 tablet 1 tablet, Oral, DAILY PRN, Constipation, Starting on Thu02/13/21 at 1949, simethicone (MYLICON) chewable tablet 80 mg 80 mg, Oral, EVERY 6 HOURS PRN, Cramping, Flatulence, Starting on Thu02/13/21 at 1949, 1700 (Given - Provider: Pramod Hernandez LPN) 0803 (Given - Provider: Lila Mcintosh RN) sodium chloride flush 0.9 % injection 10 mL 10 mL, IntraVENous, PRN, Line Care, Starting on Thu02/13/21 at 1949, After every IV line use, No Frequency Medication Order 02/13/2021 02/14/2021 02/15/2021 gentamicin (GARAMYCIN) 40 MG/ML injection (COMPLETED) Starting on Thu02/13/21 at 1746, For 1 dose, Tamiko Reardon: cabinet override 1756 (Given - Provider: Claudine Benavides RN) Linked Groups Order Group 1: oxyCODONE-acetaminophen (PERCOCET) 5-325 MG per tablet 1 tabletJump to med 1 tablet, Oral, EVERY 4 HOURS PRN, Pain Moderate (4-6), Starting on Thu02/13/21 at 194
Maximum dose of acetaminophen is 4000 mg from all sources in 24 hours.
Or oxyCODONE-acetaminophen (PERCOCET) 5-325 MG per tablet 2 tabletJump to med 2 tablet, Oral, EVERY 4 HOURS PRN, Pain Severe (7-10), Starting on Thu02/13/21 at 1949
Maximum dose of acetaminophen is 4000 mg from all sources in 24 hours.
Care Teams (unrecognized sec tion and content) Team Status: Inactive Member Role Status Dates PHYSICIAN NO FAMILY Primary Care Provider Active Reggie Maynard DO Emergency Provider Active Team Status: Active Member Role Status Dates PHYSICIAN NO FAMILY Primary Care Provider Active Goals (unrecognized section and content) Goals may be documented in a n alternate section Source Comments (unrecognize d section and content) In the event this informatio n is protected by the Federal Confidentiality of Alcohol and Drug Abuse Patient Records regulations: The Federal rules restrict any use of the information to criminally investigate or prosecute any alcohol or drug abuse patient.[facility] FOR RECORDS PERTAINING TO PATIENTS WHO ARE OR HAVE BEEN ENROLLED IN A CHEMICAL DEPENDENCY/SUBSTANCEABUSE PROGRAM, SOME INFORMATION MAY BE OMITTED. This clinical summary was aggregated from multiple sources. Caution should be exercised in using it in the provision of clinical care. This summary normalizes information from multiple sources, and as a consequence, information in this document may materially change the coding, format and clinical context of patient data. In addition, data may be omitted in some cases. CLINICAL DECISIONS SHOULD BE BASED ON THE PRIMARY CLINICAL RECORDS. [facility]. provides no warranty or guarantee of the accuracy or completeness of information in this document.
[2023-06-07 22:14] LABS: Basophils Percent Auto 0.3 % (0.2-2.0); Eosinophils Percent Auto 0.4 % (0.9-7.0); Hematocrit 39.4 % (36.0-48.0); Hemoglobin 13.1 g/dL (12.0-16.0); Immature Granulocytes Abs Auto 0.02 10^3/uL (0.00-0.03); Immature Granulocytes Pct Auto 0.3 % (0.0-0.5); Lymphocytes Absolute Auto 1.8 10^3/uL (1.2-3.8); Mean Corpuscular HGB Conc 33.2 g/dL (29.9-35.2); Mean Corpuscular Hemoglobin 30.5 pg (26.7-34.0); Mean Corpuscular Volume 91.8 fL (81.0-99.0); Monocytes Absolute Auto 0.4 10^3/uL (0.3-0.8); Monocytes Percent Auto 4.8 % (1.7-12.0); Neutrophils Absolute Auto 5.1 10^3/uL (1.4-6.5); Neutrophils Percent Auto 70.2 % (43.0-75.0); Platelet Count 261 10^3/uL (150-450); Red Blood Count 4.29 10^6/uL (4.20-5.40); Red Cell Distribution Width 12.2 % (11.0-15.0); White Blood Count 7.3 10^3/uL (4.0-11.0)
[2023-06-07] MEDS: 0.9 % SODIUM CHLORIDE 1,000 ML 999 ML IV (22:14)
[2023-06-07] MEDS: ONDANSETRON PF 4 MG/2 ML VIAL IV (22:14)
--- NOTE | 2023-06-07 22:24 | ED.GENADUL1 ---
HPI - General Adult General Chief complaint: Nausea/Vomiting/Diarrhea Stated complaint: issues, Under 20-weeks Time Seen by Provider: 06/07/23 21:47 Source: patient Mode of arrival: walk-in History of Present Illness HPI narrative: patient approximately 10 weeks presents with nausea and vomiting that has been present since I got . She sees [facility] in [place] and is supposed to be getting a zofran pump later this week. She complains of nausea and vomiting. No headache, fever or chills unless I vomit a bunch all at once . No urinary symptoms. No vaginal bleeding or abdominal pain. She has low back pain. Related Data Home Medications Medication Instructions Recorded Confirmed docusate sodium 100 mg capsule 100 mg PO DAILY 06/07/23 06/07/23 Previous Rx's Medication Instructions Recorded famotidine 20 mg tablet (Pepcid) 20 mg PO BID #10 tabs 04/20/23 hydrocodone 5 mg-acetaminophen 325 1 tab PO Q6H PRN pain #6 tabs 04/20/23 mg tablet ondansetron 4 mg disintegrating 4 mg PO Q6H PRN nausea and 04/20/23 tablet vomiting #12 tabs Allergies Allergy/AdvReac Type Severity Reaction Status Date / Time morphine Allergy Severe Hives Verified 04/20/23 17:46 Penicillins Allergy Severe Verified 04/20/23 17:46 PFSH PFSH Social History Smoking status: Heavy tobacco smoker Exam Narrative Exam Narrative: Nurses notes and vital signs reviewed and patient is not hypoxic. afebrile General: Well-appearing and in no apparent distress. Skin: Warm, dry, no pallor noted. Neck: Supple, non-tender. No meningismus. Eye: Pupils are equal, round and EOMI. No scleral icterus. Cardiovascular: Regular Rate and Rhythm without murmur, gallop or rub. Respiratory: No accessory muscle use or respiratory distress. Lungs are clear to auscultation, no wheezing, rales or rhonchi Back: Diffuse lumbar vertebral tenderness and bilateral CVA tenderness Musculoskeletal: normal ROM, no calf or popliteal tenderness, no lower extremity edema/swelling GI: Abdomen is soft, non-distended. Normal bowel sounds. No masses appreciated. No tenderness to palpation. No rebound, guarding, or rigidity noted. Neurological: A&O x4. No cranial nerve dysfunction observed. No truncal ataxia. Moves all extremities. Sensation intact. Psychiatric: Cooperative and interactive. Normal mood and affect. Constitutional Vital Signs, click to edit/add: Last Vital Signs Temp 98.3 F 06/07/23 21:44 Pulse 72 06/07/23 21:44 Resp 16 06/07/23 21:44 BP 100/61 06/07/23 21:44 Pulse Ox 99 06/07/23 21:44 O2 Del Method Room Air 06/07/23 21:44 Course Vital Signs Vital signs: Vital Signs Temperature 98.3 F 06/07/23 21:44 Pulse Rate 72 06/07/23 21:44 Respiratory Rate 16 06/07/23 21:44 Blood Pressure 100/61 06/07/23 21:44 Pulse Oximetry 99 06/07/23 21:44 Oxygen Delivery Method Room Air 06/07/23 21:44 Temperature 98.3 F 06/07/23 21:44 Pulse Rate 72 06/07/23 21:44 Respiratory Rate 16 06/07/23 21:44 Blood Pressure 100/61 06/07/23 21:44 Pulse Oximetry 99 06/07/23 21:44 Oxygen Delivery Method Room Air 06/07/23 21:44 Medical Decision Making MDM Narrative Medical decision making narrative: Peripheral IV established and blood drawn and sent for testing. She was given normal saline IV fluid and IV Zofran. Unremarkable labs. I met with the patient and she felt less nausea and was able to eat half of a popsicvle in our ED without vomiting. She was discharged home. She has zofran odt at home but I cannot tolerate the taste of the tablet . Lab Data Lab results reviewed: Yes I reviewed the patient's lab results Labs: Lab Results 06/07/23 Range/Units 22:05 WBC 7.3 (4.0-11.0) 10^3/uL RBC 4.29 (4.20-5.40) 10^6/uL Hgb 13.1 (12.0-16.0) g/dL Hct 39.4 (36.0-48.0) % MCV 91.8 (81.0-99.0) fL MCH 30.5 (26.7-34.0) pg MCHC 33.2 (29.9-35.2) g/dL RDW 12.2 (11.0-15.0) % Plt Count 261 (150-450) 10^3/uL MPV 10.0 (9.5-13.5) fL Neut % (Auto) 70.2 (43.0-75.0) % Lymph % (Auto) 24.0 (20.5-60.0) % [place] % (Auto) 4.8 (1.7-12.0) % Eos % (Auto) 0.4 L (0.9-7.0) % Baso % (Auto) 0.3 (0.2-2.0) % Neut # (Auto) 5.1 (1.4-6.5) 10^3/uL Lymph # (Auto) 1.8 (1.2-3.8) 10^3/uL [place] # (Auto) 0.4 (0.3-0.8) 10^3/uL Eos # (Auto) 0.0 (0.0-0.7) 10^3/uL Baso # (Auto) 0.0 (0.0-0.1) 10^3/uL Abs Immat Gran (auto) 0.02 (0.00-0.03) 10^3/uL Imm/Tot Granulo (auto) 0.3 (0.0-0.5) % Sodium 136 (136-145) mmol/L Potassium 3.4 L (3.5-5.1) mmol/L Chloride 100 (98-107) mmol/L Carbon Dioxide 24.7 (21.0-32.0) mmol/L Anion Gap 14.7 BUN 9.0 (7.0-18.0) mg/dL Creatinine 0.68 (0.55-1.02) mg/dL Est GFR ( Amer) >60 (>=60) Est GFR (Non-Af Amer) >60 (>=60) BUN/Creatinine Ratio 13.2 Glucose 75 (74-106) mg/dL Calcium 9.0 (8.5-10.1) mg/dL Total Bilirubin 1.1 H (0.2-1.0) mg/dL Direct Bilirubin 0.2 (0.0-0.2) mg/dL AST 13 L (15-37) U/L ALT 14 (14-59) U/L Alkaline Phosphatase 43 L (46-116) U/L Total Protein 7.0 (6.4-8.2) g/dL Albumin 3.3 L (3.4-5.0) g/dL Globulin 3.7 g/dL Albumin/Globulin Ratio 0.9 Discharge Plan Discharge Chief Complaint: Nausea/Vomiting/Diarrhea Clinical Impression: Hyperemesis gravidarum Patient Disposition: Home, Self-Care Time of Disposition Decision: 23:31 Prescriptions / Home Meds: No Action hydrocodone-acetaminophen 5-325 mg tablet 1 tab PO Q6H PRN (Reason: pain) Qty: 6 0RF Rx Instructions: DX R10.9 famotidine [Pepcid] 20 mg tablet 20 mg PO BID Qty: 10 0RF ondansetron 4 mg tablet,disintegrating 4 mg PO Q6H PRN (Reason: nausea and vomiting) Qty: 12 0RF docusate sodium 100 mg capsule 100 mg PO DAILY Instructions: Hyperemesis Gravidarum (ED) Stand Alone Forms: Portal Instructions Referrals: Physician,Non-Staff, MD [Primary Care Provider] - 1 week
--- NOTE | 2023-06-07 22:26 | PC.NURSE ---
Patient is 10 weeks . c/o continuous N/V since she found out about . patients documentum consultant concerned for hyperemesis gravidum. patient to receive zofran pump next week. patients second and states she did not have this issue before. patient has pain across lower back. believed she pulled something a few days ago when she was vomiting violently and felt a strain while bending over. patient not able to take oral zofran because it makes her vomit. patient has not had a full meal in weeks. she is using medical marijuana to increase appetite and calm stomach which was approved by her documentum consultant. states it does help her want to eat but she vomits shortly after.
[2023-06-07 22:30] LABS: Alanine Aminotransferase 14 U/L (14-59); Albumin Globulin Ratio 0.9; Albumin Level 3.3 g/dL (3.4-5.0); Alkaline Phosphatase 43 U/L (46-116); Anion Gap 14.7; Aspartate Amino Transferase 13 U/L (15-37); BUN Creatinine Ratio 13.2; Bilirubin Total 1.1 mg/dL (0.2-1.0); Carbon Dioxide 24.7 mmol/L (21.0-32.0); Chloride 100 mmol/L (98-107); Estimated GFR (African America >60 (>=60); Estimated GFR (Non-African Ame >60 (>=60); Globulin 3.7 g/dL; Glucose 75 mg/dL (74-106); Potassium 3.4 mmol/L (3.5-5.1); Sodium 136 mmol/L (136-145)
[2023-06-07 23:13] LABS: Bilirubin Direct 0.2 mg/dL (0.0-0.2)
[2023-06-07 23:45] VITALS: BP 103/65
== END 2023-06-07 23:49 | disposition home or self-care (01) ==
PROVIDERS: Emergency Provider Emergency Medicine
DX: O21.0 Mild hyperemesis gravidarum (principal); O99.331 Smoking (tobacco) complicating pregnancy, first trimester; F17.210 Nicotine dependence, cigarettes, uncomplicated; Z3A.10 10 weeks gestation of pregnancy
CPT/HCPCS: 36415; 80053; 82248; 85025; 96361; 96374; 99284

== ENCOUNTER 2023-06-12 20:56 | Emergency (ER) | payer OTHER, SELFPAY ==
[2023-06-12 21:02] VITALS: BP 114/63; PULSE 74; RESP 18; TEMP 36.9; O2SAT 97; BMI 23.3
--- NOTE | 2023-06-12 21:06 | ED.PREGNANC1 ---
HPI - General Chief complaint: Nausea/Vomiting/Diarrhea Stated complaint: 12 WKS , [facility] SENT FOR FLUIDS Time Seen by Provider: 06/12/23 21:02 Source: patient Mode of arrival: walk-in Limitations: no limitations History of Present Illness HPI Narrative: [age] year old female who is eleven and half weeks comes for IV fluids. She had a Zofran pump placed today and the home care nurse tried started an IV but was unsuccessful saw her top lift compressor center here to get fluids. She's been feeling better since the Zofran pump was placed. No vaginal bleeding or abdominal pain. Related Data Allergies Allergy/AdvReac Type Severity Reaction Status Date / Time morphine Allergy Severe Hives Verified 04/20/23 17:46 Penicillins Allergy Severe Verified 04/20/23 17:46 Review of Systems ROS Narrative A ten point review of systems is negative except as noted above. PFSH PFS Social History Smoking status: Heavy tobacco smoker Exam Narrative Exam Narrative: Nurses note and vital signs reviewed and patient is not hypoxic. General: The patient appears well and in no apparent distress. Patient is resting comfortably on cart. Skin: Warm, dry, no pallor noted. There is no rash noted. Head: Normocephalic, atraumatic Eye: Normal conjunctiva, no drainage Ears, Nose, Mouth, and Throat: oral mucosa is moist. Nares patent. Cardiovascular: Regular Rate and Rhythm Respiratory: Patient is in no distress, no accessory muscle use, lungs are clear to auscultation, no wheezing, rales or rhonchi Back: non-tender GI: soft and nontender Musculoskeletal: The patient has no evidence of calf tenderness, no pitting edema, symmetrical pulses noted bilaterally Neurological: A&O, normal speech Psychiatric: Cooperative Constitutional Vital Signs, click to edit/add: Last Vital Signs Temp 98.5 F 06/12/23 21:02 Pulse 74 06/12/23 21:02 Resp 18 06/12/23 21:02 BP 114/63 06/12/23 21:02 Pulse Ox 97 06/12/23 21:02 O2 Del Method Room Air 06/12/23 21:02 Course Vital Signs Vital signs: Vital Signs Temperature 98.5 F 06/12/23 21:02 Pulse Rate 74 06/12/23 21:02 Respiratory Rate 18 06/12/23 21:02 Blood Pressure 114/63 06/12/23 21:02 Pulse Oximetry 97 06/12/23 21:02 Oxygen Delivery Method Room Air 06/12/23 21:02 Temperature 98.5 F 06/12/23 21:02 Pulse Rate 74 06/12/23 21:02 Respiratory Rate 18 06/12/23 21:02 Blood Pressure 114/63 06/12/23 21:02 Pulse Oximetry 97 06/12/23 21:02 Oxygen Delivery Method Room Air 06/12/23 21:02 MDM - OB/Uterine Contractions MDM Narrative Medical decision making narrative: Blood work is nonspecific and she feels much better with the IV fluids and she is able to be discharged home. Treatment diagnosis and follow-up were discussed with the patient and her mother. Differential Diagnosis Differential diagnosis: Likely other (dehydration, nausea and vomiting in ) Lab Data Attestation: I reviewed the patient's lab results. Labs: Lab Results 06/12/23 Range/Units 21:10 WBC 7.4 (4.0-11.0) 10^3/uL RBC 4.16 L (4.20-5.40) 10^6/uL Hgb 12.8 (12.0-16.0) g/dL Hct 39.0 (36.0-48.0) % MCV 93.8 (81.0-99.0) fL MCH 30.8 (26.7-34.0) pg MCHC 32.8 (29.9-35.2) g/dL RDW 12.1 (11.0-15.0) % Plt Count 268 (150-450) 10^3/uL MPV 10.3 (9.5-13.5) fL Neut % (Auto) 69.1 (43.0-75.0) % Lymph % (Auto) 25.0 (20.5-60.0) % [place] % (Auto) 3.6 (1.7-12.0) % Eos % (Auto) 1.6 (0.9-7.0) % Baso % (Auto) 0.4 (0.2-2.0) % Neut # (Auto) 5.1 (1.4-6.5) 10^3/uL Lymph # (Auto) 1.9 (1.2-3.8) 10^3/uL [place] # (Auto) 0.3 (0.3-0.8) 10^3/uL Eos # (Auto) 0.1 (0.0-0.7) 10^3/uL Baso # (Auto) 0.0 (0.0-0.1) 10^3/uL Abs Immat Gran (auto) 0.02 (0.00-0.03) 10^3/uL Imm/Tot Granulo (auto) 0.3 (0.0-0.5) % Sodium 133 L (136-145) mmol/L Potassium 3.3 L (3.5-5.1) mmol/L Chloride 102 (98-107) mmol/L Carbon Dioxide 24.7 (21.0-32.0) mmol/L Anion Gap 9.6 BUN 8.0 (7.0-18.0) mg/dL Creatinine 0.66 (0.55-1.02) mg/dL Est GFR ( Amer) >60 (>=60) Est GFR (Non-Af Amer) >60 (>=60) BUN/Creatinine Ratio 12.1 Glucose 116 H (74-106) mg/dL Calcium 9.3 (8.5-10.1) mg/dL Discharge Plan Discharge Chief Complaint: Nausea/Vomiting/Diarrhea Clinical Impression: Nausea and vomiting during Patient Disposition: Home, Self-Care Time of Disposition Decision: 22:11 Condition: Good Mode of Transportation: Private Vehicle Instructions: Nausea and Vomiting in (ED) Stand Alone Forms: Portal Instructions Referrals: Physician,Non-Staff, MD [Primary Care Provider] - 1 week
--- OUTSIDE RECORDS SUMMARY | 2023-06-12 21:12 | XMS_ITS | CCD ---
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 Asbestos Shingle Name Role Phone OLIVERERASTOSAYDADIANABRIGITTE Marvel Attending Unavailable [...] reactions to drug 9 Other (See Comments) [employer] (4 sources) Morphine; Translations: [MORPHINE] Drug Allergy 1 Hives [facility] (2 sources) Penicillin Drug Allergy 0 [facility] (1 source) Morphine Drug Allergy 2 Hives [facility] (1 source) Penicillins Propensity to adverse reactions to drug 9 Unknown [facility] (1 source) Morphine Drug Allergy 1 [facility] (1 source) Morphine Drug Allergy 3 [facility] (1 source) Penicillins Drug allergy (disorder) 3 [facility] Medications Current Medications Medication Drug Class(es) [...] mg docusate sodium 50 mg / sennosides, [facility] 8.6 mg oral tablet (1 source) Start: [...] infection (1 source) Acute gastroenteropathy due to [place] agent; Translations: [ACUTE GASTROENTROPATHY [place] AGNT] Onset: [...] , with heart rate of 126 bpm. [place]-rump length measures 0.95 cm, yielding an estimated [...] Available HCG,Quantitativeon 3 HCG,Quantitative 25.40 m[iU]/mL Normal [facility] Comment on above: Result Comment: Appr oximate Approximate hCG Gestational Age Range (mIU/ml) (weeks) 0.2-1 5-50 1-2 50-500 2-3 100-5,000 3-4 500-10,000 4-5 1,000-50,000 5-6 10,000-100,000 6-8 15,000-200,000 8-12 10,000-100,000 PERFORMED BY: [place] [address] PATHOLOGIST FINISHED CIGAR MAKER ARJUN HASTINGS M.D. Performed By: #### H CGQNT #### [facility] [address] [place] [address] HCG,Urineon 04-21-2023 Beta HCG ( test) Ql (U) Negative Normal [facility] Comment on above: Order Comment: Name Collection Type:: Clean-Voided Midstream Result Comment: PERF ORMED BY: [place] [address] PATHOLOGIST FINISHED CIGAR MAKER ARJUN HASTINGS M.D. Performed By: #### U HCG, UA #### [facility] [address] [place], [place] [id number] [facility] Urinalysison 04-21-2023 Appearance (U) Clear Normal Clear [facility] Comment on above: Order Comment: Name Collection Type:: Clean-Voided Midstream Performed By: #### U HCG, UA #### [facility] [address] [place] [address] [place] Bilirubin,Urine Negative Normal Negative [facility] Comment on above: Order Comment: Name Collection Type:: Clean-Voided Midstream Performed By: #### U HCG, UA #### [facility] [address] [place] [address] Color (U) Yellow Normal Yellow [facility] Comment on above: Order Comment: Name Collection Type:: Clean-Voided Midstream Performed By: #### U HCG, UA #### [facility] [address] [place] [address] Glucose Ql (U) Normal Normal Normal [facility] Comment on above: Order Comment: Name Collection Type:: Clean-Voided Midstream Performed By: #### U HCG, UA #### [address] Ketones Ql (U) Negative Normal Negative [facility] Comment on above: Order Comment: Name Collection Type:: Clean-Voided Midstream Performed By: #### U HCG, UA #### [facility] [address] [place] [address] Leukocyte esterase Test strip Ql (U) Negative Normal Negative [facility] Comment on above: Order Comment: Name Collection Type:: Clean-Voided Midstream Performed By: #### U HCG, UA #### [address] Nitrite,Urine Negative Normal Negative [facility] Comment on above: Order Comment: Name Collection Type:: Clean-Voided Midstream Performed By: #### U HCG, UA #### [facility] [address] [place] [address] [place] Occult Blood,Urine Negative Normal Negative [facility] Comment on above: Order Comment: Name Collection Type:: Clean-Voided Midstream Performed By: #### U HCG, UA #### [facility] [address] [place] [address] [place] pH (U) 7.5 [pH] Normal 5.0-9.0 [facility] Comment on above: Order Comment: Name Collection Type:: Clean-Voided Midstream Performed By: #### U HCG, UA #### [address] [place] [address] [place] Protein,Urine Negative Normal Negative [facility] Comment on above: Order Comment: Name Collection Type:: Clean-Voided Midstream Performed By: #### U HCG, UA #### [facility] [address] Specificy [place],Urine 1.011 Normal 1.001-1.030 [facility] Comment on above: Order Comment: Name Collection Type:: Clean-Voided Midstream Performed By: #### U HCG, UA #### [facility] [address] Urobilinogen,Urine Normal Normal Normal [facility] Comment on above: Order Comment: Name Collection Type:: Clean-Voided Midstream Performed By: #### U HCG, UA #### [address] AMYLASEon 10-19-2022 Amylase [Catalytic activity/Vol] 42 U/L Normal 25-115 [facility] Comment on above: Performed By: #### L IPA, ROSS, CMP #### [facility] [address] [place] [address] Dr. Rahda Garcia CBC AUTO DIFFon 10-19-2022 BASO # 0.0 103/ul Normal 0.0-0.1 [facility] Comment on above: Performed By: #### C BC #### [facility] [address] [address] [address] Radha Garcia Basophils/100 WBC (Bld) 0.4 % Normal 0.2-2.0 [facility] Comment on above: Performed By: #### C BC #### [facility] [address] [address] [address] Radha Garcia EO # 0.1 103/ul Normal 0.0-0.7 [facility] Comment on above: Performed By: #### C BC #### [facility] [address] [address] [address] Radha Garcia Eosinophils/100 WBC (Bld) 2.9 % Normal 0.9-7.0 [facility] Comment on above: Performed By: #### C BC #### [facility] [address] [address] [address] Radha Garcia Erythrocyte distribution width (RBC) [Ratio] 12.6 % Normal 11.0-15.0 [facility] Comment on above: Performed By: #### C BC #### [facility] [address] [place] [address] Dr. Radha Garcia Hematocrit (Bld) [Volume fraction] 41.9 % Normal 36.0-48.0 [facility] Comment on above: Performed By: #### C BC #### [facility] [address] [place] [address] Dr. Radha Garcia Hemoglobin (Bld) [Mass/Vol] 13.8 g/dL Normal 12.0-16.0 [facility] Comment on above: Performed By: #### C BC #### [facility] [address] [place] [address] Dr. Radha Garcia IG # 0.01 10e3/ul Normal 0.00-0.03 [facility] Comment on above: Performed By: #### C BC #### [facility] [address] [place] [address] Dr. Radha Garcia IG % 0.2 % Normal 0.0-0.5 [facility] Comment on above: Performed By: #### C BC #### [facility] [address] [place] [address] Dr. Radha Garcia LYMPH # 1.2 103/ul Normal 1.2-3.8 [facility] Comment on above: Performed By: #### C BC #### [facility] [address] [place] [address] Dr. Radha Garcia Lymphocytes/100 WBC (Bld) 25.6 % Normal 20.5-60.0 [facility] Comment on above: Performed By: #### C BC #### [facility] [address] [place] [address] Dr. Radha Garcia MANUAL DIFF REQ NO Normal [facility] Comment on above: Performed By: #### C BC #### [facility] [address] [place] [address] Dr. Radha Garcia MCH (RBC) [Entitic mass] 29.9 pg Normal 26.7-34.0 [facility] Comment on above: Performed By: #### C BC #### [facility] [address] [place] [address] Dr. Radha Garcia MCHC (RBC) [Mass/Vol] 32.9 g/dL Normal 29.9-35.2 [facility] Comment on above: Performed By: #### C BC #### [facility] [address] [place] [address] Dr. Radha Garcia MCV (RBC) [Entitic vol] 90.9 fL Normal 81.0-99.0 [facility] Comment on above: Performed By: #### C BC #### [facility] [address] [place] [address] Dr. Radha Garcia MONO # 0.3 103/ul Normal 0.3-0.8 [facility] Comment on above: Performed By: #### C BC #### [facility] [address] [place] [address] Dr. Radha Garcia Monocytes/100 WBC (Bld) 6.5 % Normal 1.7-12.0 [facility] Comment on above: Performed By: #### C BC #### [facility] [address] [place] [address] Dr. Radha Garcia NEUT # 2.9 103/ul Normal 1.4-6.5 [facility] Comment on above: Performed By: #### C BC #### [facility] [address] [place] [address] Dr. Radha Garcia Neutrophils/100 WBC (Bld) 64.4 % Normal 43.0-75.0 [facility] Comment on above: Performed By: #### C BC #### [facility] [address] [place] [address] Dr. Radha Garcia Platelet mean volume (Bld) [Entitic vol] 10.6 fL Normal 9.5-13.5 [facility] Comment on above: Performed By: #### C BC #### [facility] [address] [place] [address] Dr. Radha Garcia PLT 246 103/ul Normal 150-450 [facility] Comment on above: Performed By: #### C BC #### [facility] [address] [place] [address] Dr. Radha Garcia RBC 4.61 106/ul Normal 4.20-5.40 [facility] Comment on above: Performed By: #### C BC #### [facility] [address] [place] [address] Dr. Radha Garcia WBC 4.5 103/ul Normal 4.0-11.0 [facility] Comment on above: Performed By: #### C BC #### [facility] [address] [place] [address] Dr. Radha Garcia GI PANEL (PCR)on 10-19-2022 Adenovirus F 40/41 Not detected Normal NOT DETECTED [facility] Comment on above: Performed By: #### G IPANEL #### [facility] [address] [place] [address] Dr. Radha Garcia Astrovirus Not detected Normal NOT DETECTED [facility] Comment on above: Performed By: #### G IPANEL #### [facility] [address] [place] [address] Dr. Radha Pike. Diff toxin A/B Not detected Normal NOT DETECTED [facility] Comment on above: Performed By: #### G IPANEL #### [facility] [address] [place] [address] Dr. Radha Garcia Campylobacter Not detected Normal NOT DETECTED [facility] Comment on above: Performed By: #### G IPANEL #### [facility] [address] [place] [address] Dr. Radha Garcia Cryptosporidium Not detected Normal NOT DETECTED [facility] Comment on above: Performed By: #### G IPANEL #### [facility] [address] [place] [address] Dr. Radha Garcia Cyclos. Cayetanensis Not detected Normal NOT DETECTED [facility] Comment on above: Performed By: #### G IPANEL #### [facility] [address] [place] [address] Dr. Radha Garcia E. Coli O157 Not Applicable Normal Not Applicable [facility] Comment on above: Performed By: #### G IPANEL #### [facility] [address] [place] [address] Dr. Radha Garcia E. histolytica Not detected Normal NOT DETECTED [facility] Comment on above: Performed By: #### G IPANEL #### [facility] [address] [place] [address] Dr. Radha Garcia EAEC Not detected Normal NOT DETECTED [facility] Comment on above: Performed By: #### G IPANEL #### [facility] [address] [place] [address] Dr. Radha Garcia EIEC Not detected Normal NOT DETECTED [facility] Comment on above: Performed By: #### G IPANEL #### [facility] [address] [place] [address] Dr. Radha Garcia EPEC Not detected Normal NOT DETECTED [facility] Comment on above: Performed By: #### G IPANEL #### [facility] [address] [place] [address] Dr. Radha Garcia ETEC Not detected Normal NOT DETECTED [facility] Comment on above: Performed By: #### G IPANEL #### [facility] [address] [place] [address] Dr. Radha Garcia G. Lamblia Not detected Normal NOT DETECTED [facility] Comment on above: Performed By: #### G IPANEL #### [facility] [address] [place] [address] Dr. Radha SANTANA CONTROLS PASSED Normal [facility] Comment on above: Performed By: #### G IPANEL #### [facility] [address] [place] [address] Dr. Radha MALIK GALI HEADER GI PANEL BACTERIA Normal [facility] Comment on above: Performed By: #### G IPANEL #### [facility] [address] [place] [address] Dr. Radha LOUIS ECOLI GI PANEL DIARRHEAGENIC E.COLI / SHIGELLA Normal [facility] Comment on above: Performed By: #### G IPANEL #### [facility] [address] [place] [address] Dr. Radha LOUIS INFO SEE BELOW Normal [facility] Comment on above: Result Comment: EAEC - Enteroaggregative E. Coli EPEC- Enteropathogenic E. Coli ETEC- Enterotoxigenic E. Coli lt/st STEC- Shigella-like toxin-producing E. Coli stx1/stx2 EIEC- Shigella/Enteroinvasive E. Coli Performed By: #### G IPANEL #### [facility] [address] [place] [address] Dr. Radha LOUIS PARASITES GI PANEL PARASITES Normal [facility] Comment on above: Performed By: #### G IPANEL #### [facility] [address] [place] [address] Dr. Radha LOUIS VIRUS GI PANEL VIRUSES Normal [facility] Comment on above: Performed By: #### G IPANEL #### [facility] [address] [place] [address] Dr. Radha Garcia Norovirus GI/GII Detected Abnormal NOT DETECTED [facility] Comment on above: Performed By: #### G IPANEL #### [facility] [address] [place] [address] Dr. Radha Garcia P. Shigelloides Not detected Normal NOT DETECTED [facility] Comment on above: Performed By: #### G IPANEL #### [facility] [address] [place] [address] Dr. Radha Garcia Rotavirus A Not detected Normal NOT DETECTED [facility] Comment on above: Performed By: #### G IPANEL #### [facility] [address] [place] [address] Dr. Radha Garcia Salmonella Not detected Normal NOT DETECTED [facility] Comment on above: Performed By: #### G IPANEL #### [facility] [address] [place] [address] Dr. Radha Garcia Sapovirus Not detected Normal NOT DETECTED [facility] Comment on above: Performed By: #### G IPANEL #### [facility] [address] [place] [address] Dr. Radha Garcia STEC Not detected Normal NOT DETECTED [facility] Comment on above: Performed By: #### G IPANEL #### [facility] [address] [place] [address] Dr. Radha Garcia Vibrio Not detected Normal NOT DETECTED [facility] Comment on above: Performed By: #### G IPANEL #### [facility] [address] [place] [address] Dr. Radha Garcia Vibrio Cholera Not detected Normal NOT DETECTED [facility] Comment on above: Performed By: #### G IPANEL #### [facility] [address] [place] [address] Dr. Radha Garcia Y. Enterocolitica Not detected Normal NOT DETECTED [facility] Comment on above: Performed By: #### G IPANEL #### [facility] [address] [place] [address] Dr. Radha Garcia LIPASEon 10-19-2022 Lipase [Catalytic activity/Vol] 54.0 U/L Critically low 73.0-393.0 [facility] Comment on above: Performed By: #### L ROSS BAKER, CMP #### [facility] [address] [place] [address] Dr. Radha Garcia PROF 14(COMP METB)on 023 Albumin [Mass/Vol] 3.3 g/dL Critically low 3.4-5.0 [facility] Comment on above: Performed By: #### L ROSS BAKER, CMP #### [facility] [address] [place] [address] Dr. Radha Garcia Albumin/Globulin [Mass ratio] 1.0 {ratio} Normal [facility] Comment on above: Performed By: #### L SAMUEL ROSS, CMP #### [facility] [address] [place] [address] Dr. Radha Garcia ALP [Catalytic activity/Vol] 58 U/L Normal 46-116 [facility] Comment on above: Performed By: #### L IPA, ROSS, CMP #### [facility] [address] [address] [address] Radha Garcia ALT [Catalytic activity/Vol] 25 U/L Normal 14-59 [facility] Comment on above: Performed By: #### L IPA, ROSS, CMP #### [facility] [address] [address] [address] Radha Garcia Anion gap [Moles/Vol] 14.5 mmol/L Normal [facility] Comment on above: Performed By: #### L IPA, ROSS, CMP #### [facility] [address] [address] [address] Radha Garcia AST [Catalytic activity/Vol] 19 U/L Normal 15-37 [facility] Comment on above: Performed By: #### L IPA, ROSS, CMP #### [facility] [address] [address] [address] Radha Garcia Bilirubin [Mass/Vol] 0.8 mg/dL Normal 0.2-1.0 [facility] Comment on above: Performed By: #### L IPA, ROSS, CMP #### [facility] [address] [address] [address] Radha Garcia Calcium [Mass/Vol] 8.4 mg/dL Critically low 8.5-10.1 [facility] Comment on above: Performed By: #### L IPA, ROSS, CMP #### [facility] [address] [address] [address] Radha Garcia Chloride [Moles/Vol] 107 mmol/L Normal 98-107 [facility] Comment on above: Performed By: #### L IPA, ROSS, CMP #### [facility] [address] [address] [address] Radha Garcia CO2 [Moles/Vol] 25.8 mmol/L Normal 21.0-32.0 [facility] Comment on above: Performed By: #### L IPA, ROSS, CMP #### [facility] [address] [address] [address] Radha Garcia Creatinine [Mass/Vol] 0.78 mg/dL Normal 0.55-1.02 [facility] Comment on above: Performed By: #### L ROSS BAKER, CMP #### [facility] [address] [place] [address] Dr. Radha Garcia EGFR-AF [place] >60 Normal >=60 [facility] Comment on above: Performed By: #### L SAMUEL ROSS, CMP #### [facility] [address] [place] [address] Dr. Radha Garcia EGFR-NON AF [place] >60 Normal >=60 [facility] Comment on above: Performed By: #### L ROSS BAKER, CMP #### [facility] [address] [place] [address] Dr. Radha Garcia Globulin (S) [Mass/Vol] 3.2 g/dL Normal T [facility] Comment on above: Performed By: #### L ROSS BAKER, CMP #### [facility] [address] [place] [address] Dr. Radha Garcia Glucose [Mass/Vol] 96 mg/dL Normal 74-106 [facility] Comment on above: Performed By: #### L ROSS BAKER, CMP #### [facility] [address] [place] [address] Dr. Radha Garcia Potassium [Moles/Vol] 3.3 mmol/L Critically low 3.5-5.1 [facility] Comment on above: Performed By: #### L ROSS BAKER, CMP #### [facility] [address] [place] [address] Dr. Radha Garcia Protein [Mass/Vol] 6.5 g/dL Normal 6.4-8.2 [facility] Comment on above: Performed By: #### L ROSS BAKER, CMP #### [facility] [address] [place] [address] Dr. Radha Garcia Sodium [Moles/Vol] 144 mmol/L Normal 136-145 [facility] Comment on above: Performed By: #### L ROSS BAKER, CMP #### [facility] [address] [place] [address] Dr. Radha Garcia Urea nitrogen [Mass/Vol] 6.0 mg/dL Critically low 7.0-18.0 [facility] Comment on above: Performed By: #### L ROSS BAKER, CMP #### [facility] [address] [address] [address] Radha Garcia Urea nitrogen/Creatinine [Mass ratio] 7.7 mg/mg Normal [facility] Comment on above: Performed By: #### L ROSS BAKER, CMP #### [facility] [address] [address] [address] Radha Garcia 36on 07-16-2022 36 Attempted to call an d schedule an EGD, but mail box is full unable to leave a message. Will mail her a letter. Normal [facility] 36on 06-06-2022 36 ----- Message from Mary Jo Javier MA sent at 05/26/2022 10:02 AM EST ----- For your review! Normal [facility] BETA HCG, QUANTITATIVE FOR E Don 05-25-2022 HCG.beta subunit Qn m[IU]/mL Normal <5.0 [facility] Comment on above: Order Comment: Speci men Type: BLOOD SPECIMEN Ordering Facility: [facility] Address: [address] [address] Result Comment: Nega tive Performed By: #### 2 4323-8, 3040-3, HCGED, 76937-0 #### [facility] CLIA [id number] [place] [address] [place] CBC W Auto Differential pane l (Bld)on 05-25-2022 Basophils (Bld) [#/Vol] 10*3/uL Normal <0.11 [facility] Comment on above: Order Comment: Speci men Type: BLOOD SPECIMEN Ordering Facility: [facility] Address: [address] [address] Performed By: #### 5 7021-8 #### [facility] CLIA [id number] [place] [address] [place] Basophils/100 WBC (Bld) 0.1 % Normal [facility] Comment on above: Order Comment: Speci men Type: BLOOD SPECIMEN Ordering Facility: [facility] Address: [address] [address] Performed By: #### 5 7021-8 #### [facility] [place] [id number] [place] [address] [place] Differential cell count method Nom (Bld) Auto Normal [facility] Comment on above: Order Comment: Speci men Type: BLOOD SPECIMEN Ordering Facility: [facility] Address: [address] [address] Performed By: #### 5 7021-8 #### [facility] [facility] IA [id number] [address] [place] [address] [place] Eosinophils (Bld) [#/Vol] 0.08 10*3/uL Normal <0.46 [facility] Comment on above: Order Comment: Speci men Type: BLOOD SPECIMEN Ordering Facility: [facility] Address: [address] [address] Performed By: #### 5 7021-8 #### [facility] IA [id number] [address] [place] [address] [place] Eosinophils/100 WBC (Bld) 1.0 % Normal [facility] Comment on above: Order Comment: Speci men Type: BLOOD SPECIMEN Ordering Facility: [facility] Address: [address] [address] Performed By: #### 5 7021-8 #### [facility] IA [id number] [address] [place] Erythrocyte distribution width (RBC) [Ratio] 12.4 % Normal 11.5-15.0 [facility] Comment on above: Order Comment: Speci men Type: BLOOD SPECIMEN Ordering Facility: [facility] Address: [address] [address] Performed By: #### 5 7021-8 #### [facility] IA [id number] [address] [place] [address] [place] Hematocrit (Bld) [Volume fraction] 43.0 % Normal 36.0-46.0 [facility] Comment on above: Order Comment: Speci men Type: BLOOD SPECIMEN Ordering Facility: [facility] Address: [address] [address] Performed By: #### 5 7021-8 #### [facility] IA [id number] [address] [place] [address] [place] Hemoglobin (Bld) [Mass/Vol] 14.2 g/dL Normal 11.5-15.5 [facility] Comment on above: Order Comment: Speci men Type: BLOOD SPECIMEN Ordering Facility: [facility] Address: [address] [address] Performed By: #### 5 7021-8 #### [facility] IA [id number] [address] [place] [address] [place] Immature granulocytes (Bld) [#/Vol] 10*3/uL Normal <0.10 [facility] Comment on above: Order Comment: Speci men Type: BLOOD SPECIMEN Ordering Facility: [facility] Address: [address] [address] Performed By: #### 5 7021-8 #### [facility] IA [id number] [address] [place] [address] [place] Immature granulocytes/100 WBC (Bld) 0.2 % Normal [facility] Comment on above: Order Comment: Speci men Type: BLOOD SPECIMEN Ordering Facility: [facility] Address: [address] [address] Performed By: #### 5 7021-8 #### [facility] IA [id number] [address] [place] [address] [place] Lymphocytes (Bld) [#/Vol] 0.30 10*3/uL Low 1.00-4.00 [facility] Comment on above: Order Comment: Speci men Type: BLOOD SPECIMEN Ordering Facility: [facility] Address: [address] [address] Performed By: #### 5 7021-8 #### [facility] IA [id number] [address] [place] Lymphocytes/100 WBC (Bld) 3.6 % Normal [facility] Comment on above: Order Comment: Speci men Type: BLOOD SPECIMEN Ordering Facility: [facility] Address: [address] [address] Performed By: #### 5 7021-8 #### [facility] [id number] [address] [place] [address] [place] MCH (RBC) [Entitic mass] 28.7 pg Normal 26.0-34.0 [facility] Comment on above: Order Comment: Speci men Type: BLOOD SPECIMEN Ordering Facility: [facility] Address: [address] [place] [address] Performed By: #### 5 7021-8 #### [facility] [id number] [address] [place] [address] [place] MCHC (RBC) [Mass/Vol] 33.0 g/dL Normal 30.5-36.0 [facility] Comment on above: Order Comment: Speci men Type: BLOOD SPECIMEN Ordering Facility: [facility] Address: [address] [place] [address] Performed By: #### 5 7021-8 #### [facility] [id number] [place] [address] [place] MCV (RBC) [Entitic vol] 86.9 fL Normal 80.0-100.0 [facility] Comment on above: Order Comment: Speci men Type: BLOOD SPECIMEN Ordering Facility: [facility] Address: [address] [address] Performed By: #### 5 7021-8 #### [facility] IA [id number] [address] [place] [address] [place] Monocytes (Bld) [#/Vol] 0.19 10*3/uL Normal <0.87 [facility] Comment on above: Order Comment: Speci men Type: BLOOD SPECIMEN Ordering Facility: [facility] Address: [address] [address] Performed By: #### 5 7021-8 #### [facility] IA [id number] [address] [place] [address] [place] Monocytes/100 WBC (Bld) 2.3 % Normal [facility] Comment on above: Order Comment: Speci men Type: BLOOD SPECIMEN Ordering Facility: [facility] Address: [address] [address] Performed By: #### 5 7021-8 #### [facility] IA [id number] [address] [place] [address] [place] Neutrophils (Bld) [#/Vol] 7.62 10*3/uL High 1.45-7.50 [facility] Comment on above: Order Comment: Speci men Type: BLOOD SPECIMEN Ordering Facility: [facility] Address: [address] [address] Performed By: #### 5 7021-8 #### [facility] IA [id number] [address] [place] [address] [place] Neutrophils/100 WBC (Bld) 92.8 % Normal [facility] Comment on above: Order Comment: Speci men Type: BLOOD SPECIMEN Ordering Facility: [facility] Address: [address] [address] Performed By: #### 5 7021-8 #### [facility] IA [id number] [address] [place] [address] [place] Nucleated RBC (Bld) [#/Vol] 10*3/uL Normal <0.01 [facility] Comment on above: Order Comment: Speci men Type: BLOOD SPECIMEN Ordering Facility: [facility] Address: [address] Performed By: #### 5 7021-8 #### [facility] IA [id number] [address] [place] [address] [place] Nucleated RBC/100 WBC (Bld) [Ratio] 0.0 /100 WBC Normal [facility] Comment on above: Order Comment: Speci men Type: BLOOD SPECIMEN Ordering Facility: [facility] Address: [address] Performed By: #### 5 7021-8 #### [facility] CLIA [id number] [address] [place] [address] [place] Platelet mean volume (Bld) [Entitic vol] 10.5 fL Normal 9.0-12.7 [facility] Comment on above: Order Comment: Speci men Type: BLOOD SPECIMEN Ordering Facility: [facility] Address: [address] Performed By: #### 5 7021-8 #### [facility] CLIA [id number] [address] [place] [address] [place] Platelets (Bld) [#/Vol] 264 10*3/uL Normal 150-400 [facility] Comment on above: Order Comment: Speci men Type: BLOOD SPECIMEN Ordering Facility: [facility] Address: [address] Performed By: #### 5 7021-8 #### [facility] CLIA [id number] [address] [place] [address] [place] RBC (Bld) [#/Vol] 4.95 10*6/uL Normal 3.90-5.20 [facility] Comment on above: Order Comment: Speci men Type: BLOOD SPECIMEN Ordering Facility: [facility] Address: [address] Performed By: #### 5 7021-8 #### [facility] CLIA [id number] [address] [place] [address] [place] WBC (Bld) [#/Vol] 8.22 10*3/uL Normal 3.70-11.00 [facility] Comment on above: Order Comment: Speci men Type: BLOOD SPECIMEN Ordering Facility: [facility] Address: [address] Performed By: #### 5 7021-8 #### [facility] CLIA [id number] [address] [place] [address] [place] Comprehensive metabolic 2000 panelon 05-25-2022 Albumin [Mass/Vol] 4.3 g/dL Normal 3.9-4.9 [facility] Comment on above: Order Comment: Speci men Type: BLOOD SPECIMEN Ordering Facility: [facility] Address: [address] [place] [address] Performed By: #### 2 4323-8, 3040-3, HCGED, 73531-1 #### [facility] CLIA [id number] [address] [place] [address] [place] ALP [Catalytic activity/Vol] 74 U/L Normal 34-123 [facility] Comment on above: Order Comment: Speci men Type: BLOOD SPECIMEN Ordering Facility: [facility] Address: [address] [place] [address] Performed By: #### 2 4323-8, 3040-3, HCGED, 77937-4 #### [facility] CLIA [id number] [address] [place] [address] [place] ALT [Catalytic activity/Vol] 23 U/L Normal 7-38 [facility] Comment on above: Order Comment: Speci men Type: BLOOD SPECIMEN Ordering Facility: [facility] Address: [address] [place] [address] Performed By: #### 2 4323-8, 3040-3, HCGED, 67977-0 #### [facility] CLIA [id number] [address] [facility] [place] [address] [place] Anion gap [Moles/Vol] 12 mmol/L Normal 9-18 [facility] Comment on above: Order Comment: Speci men Type: BLOOD SPECIMEN Ordering Facility: [facility] Address: [address] [place] [address] Performed By: #### 2 4323-8, 3040-3, HCGED, 80504-0 #### [facility] CLIA [id number] [address] [place] [address] [place] AST [Catalytic activity/Vol] 15 U/L Normal 13-35 [facility] Comment on above: Order Comment: Speci men Type: BLOOD SPECIMEN Ordering Facility: [facility] Address: [address] [address] Performed By: #### 2 4323-8, 3040-3, HCGED, #### [facility] CLIA [id number] [address] [place] [address] [place] Bilirubin [Mass/Vol] 1.0 mg/dL Normal 0.2-1.3 [facility] Comment on above: Order Comment: Speci men Type: BLOOD SPECIMEN Ordering Facility: [facility] Address: [address] [place] [address] Performed By: #### 2 4323-8, 3040-3, HCGED, #### [facility] CLIA [id number] [address] [place] [address] [place] Calcium [Mass/Vol] 8.8 mg/dL Normal 8.5-10.2 [facility] Comment on above: Order Comment: Speci men Type: BLOOD SPECIMEN Ordering Facility: [facility] Address: [address] [place], [place] [address] Performed By: #### 2 4323-8, 3040-3, HCGED, #### [facility] CLIA [id number] [address] [place] [address] [place] Chloride [Moles/Vol] 107 mmol/L High 97-105 [facility] Comment on above: Order Comment: Speci men Type: BLOOD SPECIMEN Ordering Facility: [facility] Address: [address] [place], [place] [address] Performed By: #### 2 4323-8, 3040-3, HCGED, #### [facility] CLIA [id number] [address] [place] [address] [place] CO2 [Moles/Vol] 22 mmol/L Normal 22-30 [facility] Comment on above: Order Comment: Speci men Type: BLOOD SPECIMEN Ordering Facility: [facility] Address: [address] [id number] Performed By: #### 2 4323-8, 3040-3, HCGED, #### [facility] CLIA [id number] [address] [facility] [place] [address] [place] Creatinine [Mass/Vol] 0.70 mg/dL Normal 0.58-0.96 [facility] Comment on above: Order Comment: Speci men Type: BLOOD SPECIMEN Ordering Facility: [facility] Address: [address] [id number] Performed By: #### 2 4323-8, 3040-3, HCGED, #### [facility] CLIA [id number] [address] [facility] [place] [address] [place] ESTIMATED GLOMERULAR FILTRATION RATE 123 mL/min/1.73m??? Normal >=60 [facility] Comment on above: Order Comment: Speci men Type: BLOOD SPECIMEN Ordering Facility: [facility] Address: [address] Result Comment: Hazel mated Glomerular Filtration [...] GFR. Performed By: #### 2 4323-8, 3040-3, [facility], #### [facility] CLIA [id number] [address] [facility] [place] [address] [place] Glucose [Mass/Vol] 97 mg/dL Normal 74-99 [facility] Comment on above: Order Comment: Speci men Type: BLOOD SPECIMEN Ordering Facility: [facility] Address: [address] [phone] Result Comment: The [place] [employer] (ADA) provides guidance for cutoff [...] Standards of Medical Care in Diabetes 2016, [place] [employer]. Diabetes Care. 2016.39(Suppl 1). Performed By: #### 2 4323-8, 3040-3, HCGED, #### [facility] CLIA [id number] [address] [place] [address] [place] Potassium [Moles/Vol] 3.9 mmol/L Normal 3.7-5.1 [facility] Comment on above: Order Comment: Speci men Type: BLOOD SPECIMEN Ordering Facility: [facility] Address: [address] [place] [address] Performed By: #### 2 4323-8, 3040-3, HCGED, #### [facility] CLIA [id number] [address] [place] [address] [place] Protein [Mass/Vol] 6.9 g/dL Normal 6.3-8.0 [facility] Comment on above: Order Comment: Speci [facility] Type: BLOOD SPECIMEN Ordering Facility: [facility] Address: [address] [place] [address] Performed By: #### 2 4323-8, 3040-3, HCGED, #### [facility] CLIA [id number] [address] [place] [address] [place] Sodium [Moles/Vol] 141 mmol/L Normal 136-144 [facility] Comment on above: Order Comment: Speci men Type: BLOOD SPECIMEN Ordering Facility: [facility] Address: [address] [place] [address] Performed By: #### 2 4323-8, 3040-3, HCGED, #### [facility] CLIA [id number] [address] [facility] [place] [address] [place] Urea nitrogen [Mass/Vol] 13 mg/dL Normal 7- [facility] Comment on above: Order Comment: Speci men Type: BLOOD SPECIMEN Ordering Facility: [facility] Address: [address] [place], [place] [phone] Performed By: #### 2 4323-8, 3040-3, HCGED, 37653-2 #### [facility] CLIA [id number] [address] [facility] [place] [address] [place] ECG COMPLETEon 05-25-2022 ECG COMPLETE Ventricular Rate : 9 1 BPM Atrial Rate : 92 BPM P-R Interval : 150 ms QRS Duration : 85 ms Q-T Interval : 341 ms QTC Calculation(Bazett) : 420 ms Calculated P Largo : 33 degrees Calculated R Largo : 21 degrees Calculated T Largo : 24 degrees Sinus rhythm Low voltage, precordial leads Otherwise Normal ECG *SEE EPIC NOTE FOR INTERPRETATION Confirmed by KHADAR LUNA MD ([id number]), editor trade journal BE TORRES ([id number]) on 05/26/2022 1:50:52 PM NAME : JOVON LOPEZ PID : [id number] : 1995 Gender : Female Race : ORD : [id number] Procedure Date : May 24 2022 23:05:41 Edit Date : May 26 2022 13:50:57 Diagnosis: Sinus rhythm Low voltage, precordial leads Otherwise Normal ECG *SEE EPIC NOTE FOR INTERPRETATION Confirmed by KHADAR LUNA MD ([id number]), editor trade journal BE TORRES ([id number]) on 05/26/2022 1:50:52 PM Test Reason : Chest Pain Location : 302 : ED AVED-16 Overread By : KHADAR LUNA MD Edited By : BE TORRES Referred By : , Acquired by : [id number], Normal [facility] ED NOTEon 05-25-2022 ED NOTE HNO ID: [id number] Author: Diamond Plata RN Service: Nursing Author [...] ED in no acute distress. DIAMOND PLATA [facility] [phone] Normal [facility] ED PROV NOTEon 05-25-2022 ED PROV NOTE HNO ID: [id number] Author: Khadar Luna DO Service: Emergency Medicine [...] which was unremarkable. She followed up with sheriff sergeant yesterday, was told that her symptoms may [...] Clinical Impr (more content not included)... Normal [facility] Lipase SerPl-cCncon 05-25-20 Lipase [Catalytic activity/Vol] 15 U/L Low 16-61 [facility] Comment on above: Order Comment: Specarti vu Type: BLOOD SPECIMEN Ordering Facility: [facility] Address: [address] [place] [address] Performed By: #### 2 4323-8, 3040-3, HCGED, #### [facility] CLIA [id number] [address] [place], [place] [address] [place] [address] [place] Magnesium SerPl-mCncon 05-25 Magnesium [Mass/Vol] 1.9 mg/dL Normal 1.7-2.3 [facility] Comment on above: Order Comment: [facility] Type: BLOOD SPECIMEN Ordering Facility: [facility] Address: [address] [place] [address] Performed By: #### 2 4323-8, 3040-3, HCGED, #### [facility] CLIA [id number] [address] [place] [address] [place] Urinalysis complete panel (U )on 05-25-2022 Bilirubin Ql (U) Negative Normal Negative [facility] Comment on above: Order Comment: [facility] Type: URINE SPECIMEN Ordering Facility: [facility] Address: [address] [place] [address] Performed By: #### 2 4356-8 #### [facility] CLIA [id number] [address] [place] [address] [place] Clarity (Unsp spec) Clear Normal Clear [facility] Comment on above: Order Comment: Speci men Type: URINE SPECIMEN Ordering Facility: [facility] Address: [address] [place] [address] Performed By: #### 2 4356-8 #### [facility] IA [id number] [address] [place] [address] [place] Color (U) Yellow Normal Yellow [facility] Comment on above: Order Comment: Speci men Type: URINE SPECIMEN Ordering Facility: [facility] Address: [address] [address] Performed By: #### 2 6-8 #### [facility] [id number] [address] [place] [address] Epithelial cells LM.HPF (Urine sed) [#/Area] Few Normal [facility] Comment on above: Order Comment: Speci men Type: URINE SPECIMEN Ordering Facility: [facility] Address: [address] [place] [address] Performed By: #### 2 6-8 #### [facility] IA [id number] [address] [place] [address] [place] Glucose Test strip (U) [Mass/Vol] Negative Normal Negative [facility] Comment on above: Order Comment: Speci men Type: URINE SPECIMEN Ordering Facility: [facility] Address: [address] [address] Performed By: #### 2 4356-8 #### [facility] IA [id number] [address] [place] [address] [place] Hemoglobin Ql (U) Negative Normal Negative [facility] Comment on above: Order Comment: Speci men Type: URINE SPECIMEN Ordering Facility: [facility] Address: [address] [place] [address] Performed By: #### 2 4356-8 #### [facility] IA [id number] [address] [place] [address] [place] Ketones Ql (U) 3+ Abnormal Trace, Negative [facility] Comment on above: Order Comment: Speci men Type: URINE SPECIMEN Ordering Facility: [facility] Address: [address] [address] Performed By: #### 2 4356-8 #### [facility] IA [id number] [address] Leukocyte esterase Test strip Ql (U) 1+ Abnormal Negative [facility] Comment on above: Order Comment: Speci men Type: URINE SPECIMEN Ordering Facility: [facility] Address: [address] [address] Performed By: #### 2 4356-8 #### [facility] IA [id number] [address] [place] [address] [place] Nitrite Ql (U) Negative Normal Negative [facility] Comment on above: Order Comment: Speci men Type: URINE SPECIMEN Ordering Facility: [facility] Address: [address] [place] [address] Performed By: #### 2 4356-8 #### [facility] IA [id number] [address] [place] [address] [place] pH (U) 5.5 [pH] Normal 5.0-8.0 [facility] Comment on above: Order Comment: Speci men Type: URINE SPECIMEN Ordering Facility: [facility] Address: [address] [address] Performed By: #### 2 4356-8 #### [facility] IA [id number] [address] [place] [address] [place] Protein (U) [Mass/Vol] Trace Normal Trace , Negative [facility] Comment on above: Order Comment: Speci men Type: URINE SPECIMEN Ordering Facility: [facility] Address: [address] [address] Performed By: #### 2 4356-8 #### [facility] IA [id number] [address] [place] [address] [place] RBC LM.HPF (Urine sed) [#/Area] 0-3 /HPF Normal 0-3 /HPF [facility] Comment on above: Order Comment: Speci men Type: URINE SPECIMEN Ordering Facility: [facility] Address: [address] [place] [address] Performed By: #### 2 4356-8 #### [facility] IA [id number] [address] STATES [place] Specific gravity (U) [Rel density] 1.026 Normal 1.005-1.030 [facility] Comment on above: Order Comment: Speci men Type: URINE SPECIMEN Ordering Facility: [facility] Address: [address] [place] [address] Performed By: #### 2 4356-8 #### [facility] IA [id number] [address] [place] Urobilinogen Ql (U) 0.2 EU/dL Normal 0.2-1.0 EU/dL [facility] Comment on above: Order Comment: Speci men Type: URINE SPECIMEN Ordering Facility: [facility] Address: [address] [place] [address] Performed By: #### 2 4356-8 #### [facility] IA [id number] [address] STATES OF [facility] WBC LM.HPF (Urine sed) [#/Area] 6-10 /HPF Abnormal 0-5 /HPF [facility] Comment on above: Order Comment: Speci men Type: URINE SPECIMEN Ordering Facility: [facility] Address: [address] [place] [address] Performed By: #### 2 4356-8 #### [facility] IA [id number] [address] [address] [id number] [place] ED NOTEon 05-24-2022 ED NOTE HNO ID: [id number] Author: Gabby Barone RN Service: ? Author Type: Registered Nurse Type: ED Notes Filed: 05/24/2022 9:23 PM Note Text: Patient presents with nausea, vomiting, diarrhea, and centralized abdominal pain for about 5 months. States she has lost about 45 pounds and is unable to eat or drink without pain. GABBY BARONE [facility] [phone] Normal [facility] Office Visiton 05-23-2022 Follow-up visit [id number] Jovon Lopez 1995 F Date Provider Department Center 05/23/2022 GONZALEZ PUCKETT [facility] GI [facility] No family history on file Level of Service:06292 [place] OFFICE/OUTPATIENT ESTABLISHED MOD MDM 30-39 MIN (GC) Reason for Visit and Comments: New Patient [632] Fatigue [46] - Had gallbladder removed in 03/2021, Dr. Powell found and fixed leak 04/2021, pt is having major problems with eating and drinking. Was referred back in 2020 [facility] [place] Automated erythrocytes count in urine sediment (number/area)Ordered By: Reggie Maynard on 05-17-2022 RBC Auto (Urine sed) [#/Area] 5-9 [HPF] 0-4 [facility] Automated leukocytes count i n urine sediment (number/area)Ordered By: Reggie Maynard on 05-17-2022 WBC Auto (Urine sed) [#/Area] 50-100 [HPF] 0-4 [facility] Basic Metabolic Panelon 05-08 Anion gap [Moles/Vol] 14.6 mmol/L Normal 6.0-15.0 [facility] Comment on above: Performed By: #### B MP, HEPATIC, CBC, LIPASE #### [facility] [address] [place] [id number] [place] Calcium [Mass/Vol] 8.9 mg/dL Normal 8.2-10.2 [facility] Comment on above: Performed By: #### B MP, HEPATIC, CBC, LIPASE #### [facility] [address] [place] [address] [place] Chloride [Moles/Vol] 106 mmol/L Normal 95-114 [facility] Comment on above: Performed By: #### B MP, HEPATIC, CBC, LIPASE #### [facility] [address] [place] [address] [place] CO2 [Moles/Vol] 21.7 mmol/L Low 22.0-30.0 [facility] Comment on above: Performed By: #### B MP, HEPATIC, CBC, LIPASE #### [facility] [address] Creatinine [Mass/Vol] 0.64 mg/dL Normal 0.44-1.03 [facility] Comment on above: Performed By: #### B MP, HEPATIC, CBC, LIPASE #### [facility] [address] [place] [address] [place] Creatinine Clr Calc Pharmacy 111.16 [facility] Comment on above: Performed By: #### B MP, HEPATIC, CBC, LIPASE #### [facility] [address] Estimated GFR ( Earnest > 60 [facility] Comment on above: Result Comment: GFR estimated reference range: According to KDOQI guidelines, <60 ml/min/1.73m2 is sufficient to diagnose a patient with chronic kidney disease. Performed By: #### B MP, HEPATIC, CBC, LIPASE #### [address] Estimated GFR (Non- Am > 60 [facility] Comment on above: Performed By: #### B MP, HEPATIC, CBC, LIPASE #### [address] Glucose [Mass/Vol] 94 mg/dL Normal 70-100 [facility] Comment on above: Result Comment: [place] Glucose Reference Range is dependent on time and content of last meal. Glucose of more than 200 mg/dL in a nonstressed, ambulatory subject supports the diagnosis of Diabetes Mellitus. ADA recommended reference range Performed By: #### B MP, HEPATIC, CBC, LIPASE #### [facility] [address] Potassium [Moles/Vol] 4.3 mmol/L Normal 3.5-5.1 [facility] Comment on above: Performed By: #### B MP, HEPATIC, CBC, LIPASE #### [facility] [address] Sodium [Moles/Vol] 138 mmol/L Normal 136-146 [facility] Comment on above: Performed By: #### B MP, HEPATIC, CBC, LIPASE #### [facility] [address] Urea nitrogen [Mass/Vol] 15 mg/dL Normal 9-23 [facility] Comment on above: Performed By: #### B MP, HEPATIC, CBC, LIPASE #### [facility] [address] Basophils Auto (Bld) [#/Vol] Ordered By: Reggie Maynard on 05-17-2022 Basophils (Bld) [#/Vol] 0.1 10*3/uL 0.0-0.2 [facility] Basophils/100 WBC Auto (Bld) Ordered By: Reggie Maynard on 05-17-2022 Basophils/100 WBC (Bld) 0.7 % . [facility] Bilirubin Test strip Ql (U)O rdered By: Reggie Maynard on 05-17-2022 Bilirubin Ql (U) Negative Negative [facility] Body fluid albumin measureme nt (mass/volume)Ordered By: Reggie Maynard on 05-17-2022 Albumin (Body fld) [Mass/Vol] 3.8 g/dL 3.2-5.5 [facility] Color Auto (U)Ordered By: Hadley Maynard on 05-17-2022 Color (U) Yellow Yellow [facility] Complete Blood Count Auto Di ffon 05-17-2022 Basophils (Bld) [#/Vol] 0.1 10*3/uL Normal 0.0-0.2 [facility] Comment on above: Result Comment: PERF ORMED BY: [facility] [address] [place] [address] PATHOLOGIST FINISHED [employer] ARJUN HASTINGS M.D. Performed By: #### B MP, HEPATIC, CBC, LIPASE #### [facility] [address] Basophils/100 WBC (Bld) 0.7 % Normal . [facility] Comment on above: Performed By: #### B MP, HEPATIC, CBC, LIPASE #### [facility] [address] Eosinophils (Bld) [#/Vol] 0.3 10*3/uL Normal 0.0-0.45 [facility] Comment on above: Performed By: #### B MP, HEPATIC, CBC, LIPASE #### [address] Eosinophils/100 WBC (Bld) 4.2 % Normal . [facility] Comment on above: Performed By: #### B MP, HEPATIC, CBC, LIPASE #### [address] Erythrocyte distribution width (RBC) [Ratio] 13.0 % Normal 11.9-15.3 [facility] Comment on above: Performed By: #### B MP, HEPATIC, CBC, LIPASE #### [address] Hematocrit (Bld) [Volume fraction] 42.9 % Normal 34.0-46.4 [facility] Comment on above: Performed By: #### B MP, HEPATIC, CBC, LIPASE #### [address] Hemoglobin (Bld) [Mass/Vol] 14.5 g/dL Normal 11.8-15.4 [facility] Comment on above: Performed By: #### B MP, HEPATIC, CBC, LIPASE #### [address] Lymphocytes (Bld) [#/Vol] 1.4 10*3/uL Normal 1.00-4.8 [facility] Comment on above: Performed By: #### B MP, HEPATIC, CBC, LIPASE #### [address] Lymphocytes/100 WBC (Bld) 20.4 % Normal . [facility] Comment on above: Performed By: #### B MP, HEPATIC, CBC, LIPASE #### [address] MCH (RBC) [Entitic mass] 29.6 pg Normal 24.7-34.3 [facility] Comment on above: Performed By: #### B MP, HEPATIC, CBC, LIPASE #### [address] MCV (RBC) [Entitic vol] 87.9 fL Normal 80-100 [facility] Comment on above: Performed By: #### B MP, HEPATIC, CBC, LIPASE #### [address] Mean Corpuscular HGB Conc 33.7 g/dL Normal 32.0-35.0 [facility] Comment on above: Performed By: #### B MP, HEPATIC, CBC, LIPASE #### [address] Monocytes (Bld) [#/Vol] 0.3 10*3/uL Normal 0.0-0.8 [facility] Comment on above: Performed By: #### B MP, HEPATIC, CBC, LIPASE #### [address] Monocytes/100 WBC (Bld) 17.93 % Normal 0.00-20.00 [facility] Comment on above: Performed By: #### B MP, HEPATIC, CBC, LIPASE #### [address] Monocytes/100 WBC (Bld) 4.1 % Normal . [facility] Comment on above: Performed By: #### B MP, HEPATIC, CBC, LIPASE #### [address] Neutrophils (Bld) [#/Vol] 4.9 10*3/uL Normal 1.8-7.7 [facility] Comment on above: Performed By: #### B MP, HEPATIC, CBC, LIPASE #### [address] Neutrophils/100 WBC (Bld) 70.6 % Normal . [facility] Comment on above: Performed By: #### B MP, HEPATIC, CBC, LIPASE #### [address] NRBC% 0.2 /100{WBC} Normal 0-0.5 [facility] Comment on above: Performed By: #### B MP, HEPATIC, CBC, LIPASE #### [facility] [address] Platelet mean volume (Bld) [Entitic vol] 8.7 fL Normal 6.3-10.7 [facility] Comment on above: Performed By: #### B MP, HEPATIC, CBC, LIPASE #### [facility] [address] Platelets (Bld) [#/Vol] 323 10*3/uL Normal 150-450 [facility] Comment on above: Performed By: #### B MP, HEPATIC, CBC, LIPASE #### [address] RBC (Bld) [#/Vol] 4.88 10*6/uL Normal 3.60-5.00 [facility] Comment on above: Performed By: #### B MP, HEPATIC, CBC, LIPASE #### [address] WBC (Bld) [#/Vol] 7.0 10*3/uL Normal 3.8-11.6 [facility] Comment on above: Performed By: #### B MP, HEPATIC, CBC, LIPASE #### [address] Creatinine and Glomerular fi ltration rate.predicted panel (S/P/Bld)Ordered By: Reggie Maynard on 05-17-2022 Creatinine [Mass/Vol] 0.64 mg/dL 0.44-1.03 [facility] Dipstick and Microscopicon 1 07-18-2021 Appearance (U) Clear Normal Clear [facility] Comment on above: Order Comment: Name Collection Type:: Clean-Voided Midstream Performed By: #### A DDONUAPLUS, CUU, UHCG #### [address] Bacteria,Urine None Seen Normal None Seen [facility] Comment on above: Order Comment: Name Collection Type:: Clean-Voided Midstream Performed By: #### A DDONUAPLUS, CUU, UHCG #### [facility] [address] [place] [address] [place] Bilirubin,Urine Negative Normal Negative [facility] Comment on above: Order Comment: Name Collection Type:: Clean-Voided Midstream Performed By: #### A DDONUAPLUS, CUU, UHCG #### [facility] [address] [place] [address] [place] Color (U) Yellow Normal Yellow [facility] Comment on above: Order Comment: Name Collection Type:: Clean-Voided Midstream Performed By: #### A DDONUAPLUS, CUU, UHCG #### [facility] [address] [place] [address] Glucose Ql (U) Normal Normal Normal [facility] Comment on above: Order Comment: Name Collection Type:: Clean-Voided Midstream Performed By: #### A DDONUAPLUS, CUU, UHCG #### [facility] [address] [place] [address] [place] Hyaline Casts,Urine 0-8 Normal 0-8 [facility] Comment on above: Order Comment: Name Collection Type:: Clean-Voided Midstream Performed By: #### A DDONUAPLUS, CUU, UHCG #### [facility] [address] [place] [address] [place] Ketones Ql (U) Negative Normal Negative [facility] Comment on above: Order Comment: Name Collection Type:: Clean-Voided Midstream Performed By: #### A DDONUAPLUS, CUU, UHCG #### [facility] [address] [place] [address] [place] Leukocyte esterase Test strip Ql (U) 3+ High Negative [facility] Comment on above: Order Comment: Name Collection Type:: Clean-Voided Midstream Performed By: #### A DDONUAPLUS, CUU, UHCG #### [facility] [address] [place] [address] [place] Mucus,Urine 2+ Critically abnormal [facility] Comment on above: Order Comment: Name Collection Type:: Clean-Voided Midstream Performed By: #### A DDONUAPLUS, CUU, UHCG #### [facility] [address] [place] [address] [place] Nitrite,Urine Negative Normal Negative [facility] Comment on above: Order Comment: Name Collection Type:: Clean-Voided Midstream Performed By: #### A DDONUAPLUS, CUU, UHCG #### [address] Occult Blood,Urine Negative Normal Negative [facility] Comment on above: Order Comment: Name Collection Type:: Clean-Voided Midstream Performed By: #### A DDONUAPLUS, CUU, UHCG #### [address] pH (U) 5.5 [pH] Normal 5.0-9.0 [facility] Comment on above: Order Comment: Name Collection Type:: Clean-Voided Midstream Performed By: #### A DDONUAPLUS, CUU, UHCG #### [facility] [address] [place] [address] [place] Protein,Urine Negative Normal Negative [facility] Comment on above: Order Comment: Name Collection Type:: Clean-Voided Midstream Performed By: #### A DDONUAPLUS, CUU, UHCG #### [facility] [address] [place] [address] [place] RBC,Urine 5-9 High 0-4 [facility] Comment on above: Order Comment: Name Collection Type:: Clean-Voided Midstream Performed By: #### A DDONUAPLUS, CUU, UHCG #### [facility] [address] [place] [address] Renal Epithelial Cells,Urine None Seen Normal 0-1 [facility] Comment on above: Order Comment: Name Collection Type:: Clean-Voided Midstream Performed By: #### A DDONUAPLUS, CUU, UHCG #### [facility] [address] [place] [address] [place] Specificy [place],Urine 1.028 Normal 1.001-1.030 [facility] Comment on above: Order Comment: Name Collection Type:: Clean-Voided Midstream Performed By: #### A DDONUAPLUS, CUU, UHCG #### [facility] [address] Squamous Epithelial Cell,Urine 3-4 High 0-2 [facility] Comment on above: Order Comment: Name Collection Type:: Clean-Voided Midstream Performed By: #### A DDONUAPLUS, CUU, UHCG #### [facility] [address] [place] [address] Urobilinogen,Urine Normal Normal Normal [facility] Comment on above: Order Comment: Name Collection Type:: Clean-Voided Midstream Performed By: #### A DDONUAPLUS, CUU, UHCG #### [facility] [address] [place] [address] [place] WBC,Urine 50-100 High 0-4 [facility] Comment on above: Order Comment: Name Collection Type:: Clean-Voided Midstream Performed By: #### A DDONUAPLUS, CUU, UHCG #### [facility] [address] [place] [address] Direct bilirubin measurement Ordered By: Reggie Maynard on 05-17-2022 Bilirubin.direct [Mass/Vol] 0.1 mg/dL 0.0-0.4 [facility] Eosinophils Auto (Bld) [#/Vo l]Ordered By: Reggie Maynard on 05-17-2022 Eosinophils (Bld) [#/Vol] 0.3 10*3/uL 0.0-0.45 [facility] Eosinophils/100 WBC Auto (Bl d)Ordered By: Reggie Maynard on 05-17-2022 Eosinophils/100 WBC (Bld) 4.2 % . [facility] Erythrocyte distribution wid th Auto (RBC) [Ratio]Ordered By: Reggie Maynard on 05-17-2022 Erythrocyte distribution width (RBC) [Ratio] 13.0 % 11.9-15.3 [facility] Estimated glomerular filtrat ion rate (GFR) non- AmericanOrdered By: Reggie Maynard on 05-17-2022 GFR/1.73 sq M.predicted among non-blacks MDRD (S/P/Bld) [Vol rate/Area] > 60 mL/Min [facility] Globulin Calc (S) [Mass/Vol] Ordered By: Reggie Maynard on 05-17-2022 Globulin (S) [Mass/Vol] 3.3 g/dL [facility] HCG ( test) IA.rapi d Ql (U)Ordered By: Reggie Maynard on 05-17-2022 HCG ( test) Ql (U) Negative [facility] HCG,Urineon 05-17-2022 Beta HCG ( test) Ql (U) Negative Normal [facility] Comment on above: Order Comment: Name Collection Type:: Clean-Voided Midstream Result Comment: PERF ORMED BY: [place] [address] PATHOLOGIST FINISHED [employer] ARJUN HASTINGS M.D. Performed By: #### A VIJAY RAMIREZ, [facility] #### [address] Hematocrit Auto (Bld) [Volum e fraction]Ordered By: Reggie Maynard on 05-17-2022 Hematocrit (Bld) [Volume fraction] 42.9 % 34.0-46.4 [facility] Hemoglobin [Mass/volume] in BloodOrdered By: Reggie Maynard on 05-17-2022 Hemoglobin (Bld) [Mass/Vol] 14.5 g/dL 11.8-15.4 [facility] Hepatic Panelon 05-17-2022 Albumin [Mass/Vol] 3.8 g/dL Normal 3.2-5.5 [facility] Comment on above: Performed By: #### B MP, HEPATIC, CBC, LIPASE #### [address] Albumin/Globulin [Mass ratio] 1.2 {ratio} Normal [facility] Comment on above: Performed By: #### B MP, HEPATIC, CBC, LIPASE #### [address] [place] [address] [place] ALP [Catalytic activity/Vol] 56 U/L Normal 32-92 [facility] Comment on above: Performed By: #### B MP, HEPATIC, CBC, LIPASE #### [facility] [address] ALT [Catalytic activity/Vol] 22 U/L Normal 10-60 [facility] Comment on above: Performed By: #### B MP, HEPATIC, CBC, LIPASE #### [facility] [address] AST [Catalytic activity/Vol] 16 U/L Normal 10-42 [facility] Comment on above: Performed By: #### B MP, HEPATIC, CBC, LIPASE #### [address] Bilirubin [Mass/Vol] 0.8 mg/dL Normal 0.3-1.2 [facility] Comment on above: Performed By: #### B MP, HEPATIC, CBC, LIPASE #### [address] Bilirubin,Indirect 0.7 mg/dL Normal [facility] Comment on above: Performed By: #### B MP, HEPATIC, CBC, LIPASE #### [address] Bilirubin.indirect [Mass/Vol] 0.1 mg/dL Normal 0.0-0.4 [facility] Comment on above: Performed By: #### B MP, HEPATIC, CBC, LIPASE #### [facility] [address] Globulin (S) [Mass/Vol] 3.3 g/dL Normal [facility] Comment on above: Performed By: #### B MP, HEPATIC, CBC, LIPASE #### [facility] [address] Protein [Mass/Vol] 7.1 g/dL Normal 6.1-7.9 [facility] Comment on above: Performed By: #### B MP, HEPATIC, CBC, LIPASE #### [address] [address] [place] Ketones Auto test strip (U) [Mass/Vol]Ordered By: Reggie Maynard on 05-17-2022 Ketones (U) [Mass/Vol] Negative Negative Fi [facility] - Chemistry and C hemistry - challengeOrdered By: Reggie Maynard on 05-17-2022 Lipase [Catalytic activity/Vol] 30.0 U/L [facility] Laboratory - UrinalysisOrder ed By: Reggie Maynard on 05-17-2022 Hyaline casts LM Ql (Urine sed) 0-8 [LPF] 0-8 [facility] Leukocytes [#/volume] correc gema for nucleated erythrocytes in Blood by Automated counOrdered By: Reggie Maynard on 05-17-2022 WBC corrected for nucl RBC Auto (Bld) [#/Vol] 7.0 10*3/uL 3.8-11.6 [facility] Lipaseon 05-17-2022 Lipase [Catalytic activity/Vol] 30.0 U/L Normal [facility] Comment on above: Result Comment: PERF ORMED BY: [place] [address] PATHOLOGIST FINISHED [employer] ARJUN HASTINGS M.D. Performed By: #### B MP, HEPATIC, CBC, LIPASE #### [facility] [address] [place] [address] Lymphocytes Auto (Bld) [#/Vo l]Ordered By: Reggie Maynard on 05-17-2022 Lymphocytes (Bld) [#/Vol] 1.4 10*3/uL 1.00-4.8 [facility] Lymphocytes/100 WBC Auto (Bl d)Ordered By: Reggie Maynard on 05-17-2022 Lymphocytes/100 WBC (Bld) 20.4 % . [facility] MCH Auto (RBC) [Entitic mass ]Ordered By: Reggie Maynard on 05-17-2022 MCH (RBC) [Entitic mass] 29.6 pg 24.7-34.3 [facility] MCHC Auto (RBC) [Mass/Vol]Or dered By: Reggie Maynard on 05-17-2022 MCHC (RBC) [Mass/Vol] 33.7 g/dL 32.0-35.0 [facility] MCV Auto (RBC) [Entitic vol] Ordered By: Reggie Maynard on 05-17-2022 MCV (RBC) [Entitic vol] 87.9 fL 80-100 [facility] Monocyte distribution width [Entitic volume] in Blood by AutomatedOrdered By: Reggie Maynard on 05-17-2022 Monocyte distribution width Auto (Bld) [Entitic vol] 17.93 % 0.00-20.00 [facility] Monocytes Auto (Bld) [#/Vol] Ordered By: Reggie Maynard on 05-17-2022 Monocytes (Bld) [#/Vol] 0.3 10*3/uL 0.0-0.8 [facility] Monocytes/100 WBC Auto (Bld) Ordered By: Reggie Maynard on 05-17-2022 Monocytes/100 WBC (Bld) 4.1 % . [facility] Mucus LM Ql (Urine sed)Order ed By: Reggie Maynard on 05-17-2022 Mucus Ql (Urine sed) 2+ [LPF] [facility] Neutrophils Auto (Bld) [#/Vo l]Ordered By: Reggie Maynard on 05-17-2022 Neutrophils (Bld) [#/Vol] 4.9 10*3/uL 1.8-7.7 [facility] Neutrophils/100 WBC Auto (Bl d)Ordered By: Reggie Maynard on 05-17-2022 Neutrophils/100 WBC (Bld) 70.6 % . [facility] Nitrite Test strip Ql (U)Ord ered By: Reggie Maynard on 05-17-2022 Nitrite Ql (U) Negative Negative [facility] No Panel InformationOrdered By: Reggie Mayanrd on 05-17-2022 Estimated GFR () > 60 mL/Min [facility] Comment on above: GFR estimated refere nce range: According to KDOQI guidelines, <60 ml/min/1.73m2 is sufficient to diagnose a patient with chronic kidney disease. Pharmacy Creatinine Clearance (Chem 111.16 [facility] Nucleated erythrocytes [Pres ence] in Blood by Automated countOrdered By: Reggie Maynard on 05-17-2022 Nucleated RBC Auto Ql (Bld) 0.2 /100{WBC} 0-0.5 [facility] Platelet mean volume Auto (B ld) [Entitic vol]Ordered By: Reggie Maynard on 05-17-2022 Platelet mean volume (Bld) [Entitic vol] 8.7 fL 6.3-10.7 [facility] Platelets Auto (Bld) [#/Vol] Ordered By: Reggie Maynard on 05-17-2022 Platelets (Bld) [#/Vol] 323 10*3/uL 150-450 [facility] Protein Auto test strip (U) [Mass/Vol]Ordered By: Reggie Maynard on 05-17-2022 Protein (U) [Mass/Vol] Negative Negative [facility] Protein [Mass/volume] in Ser um or PlasmaOrdered By: Reggie Maynard on 05-17-2022 Protein [Mass/Vol] 7.1 g/dL 6.1-7.9 [facility] RBC Auto (Bld) [#/Vol]Ordere d By: Reggie Maynard on 05-17-2022 RBC (Bld) [#/Vol] 4.88 10*6/uL 3.60-5.00 [facility] Serum or plasma alanine rangel otransferase measurement without P-5'-P (enzymatic activiOrdered By: Reggie Maynard on 05-17-2022 ALT No additional P-5'-P [Catalytic activity/Vol] 22 U/L 10-60 [facility] Serum or plasma albumin/glob ulin mass ratioOrdered By: Reggie Maynard on 05-17-2022 Albumin/Globulin [Mass ratio] 1.2 {ratio} [facility] Serum or plasma alkaline ely sphatase measurement (enzymatic activity/volume)Ordered By: Reggie Maynard on 05-17-2022 ALP [Catalytic activity/Vol] 56 U/L 32-92 [facility] Serum or plasma anion gap de terminationOrdered By: Reggie Maynard on 05-17-2022 Anion gap [Moles/Vol] 14.6 mmol/L 6.0-15.0 [facility] Serum or plasma aspartate am inotransferase measurement (enzymatic activity/volume)Ordered By: Reggie Maynard on 05-17-2022 AST [Catalytic activity/Vol] 16 U/L 10-42 [facility] Serum or plasma calcium bryon urement (mass/volume)Ordered By: Reggie Maynard on 05-17-2022 Calcium [Mass/Vol] 8.9 mg/dL 8.2-10.2 [facility] Serum or plasma chloride jamir surement (moles/volume)Ordered By: Reggie Maynard on 05-17-2022 Chloride [Moles/Vol] 106 mmol/L 95-114 [facility] Serum or plasma glucose bryon urement (mass/volume)Ordered By: Reggie Maynard on 05-17-2022 Glucose [Mass/Vol] 94 mg/dL 70-100 [facility] Comment on above: ADA recommended refe rence rangeRandom Glucose Reference Range is dependent on time and content of last meal. Glucose of more than 200 mg/dL in a nonstressed, ambulatory subject supports the diagnosis of Diabetes Mellitus. Serum or plasma non-glucuron idated bilirubin measurement (mass/volume)Ordered By: Reggie Maynard on 05-17-2022 Bilirubin.indirect [Mass/Vol] 0.7 mg/dL [facility] Serum or plasma potassium me asurement (moles/volume)Ordered By: Reggie Maynard on 05-17-2022 Potassium [Moles/Vol] 4.3 mmol/L 3.5-5.1 [facility] Serum or plasma sodium measu rement (moles/volume)Ordered By: Reggie Maynard on 05-17-2022 Sodium [Moles/Vol] 138 mmol/L 136-146 [facility] Serum or plasma total biliru bin measurement (mass/volume)Ordered By: Reggie Maynard 05-17-2022 Bilirubin [Mass/Vol] 0.8 mg/dL 0.3-1.2 [facility] Serum or plasma total carbon dioxide measurement (moles/volume)Ordered By: Reggie Maynard on 05-17-2022 CO2 [Moles/Vol] 21.7 mmol/L 22.0-30.0 [facility] Serum or plasma urea nitroge n measurement (mass/volume)Ordered By: Reggie Maynard on 05-17-2022 Urea nitrogen [Mass/Vol] 15 mg/dL 9- [facility] Specific gravity Auto test s trip (U) [Rel density]Ordered By: Reggie Maynard on 05-17-2022 Specific gravity (U) [Rel density] 1.028 1.001-1.030 [facility] Squamous epithelial cells de tection in urine sediment by light microscopyOrdered By: Reggie Maynard on 05-17-2022 Epithelial cells.squamous LM Ql (Urine sed) 3-4 [HPF] 0-2 [facility] Urine Cultureon 05-17-2022 Bacteria identified Cx Nom (U) <9,000 colonies/ml mixed bacterial skin contaminants 2 Days PERFORMED BY: [place] [address] PATHOLOGIST FINISHED [employer] ARJUN HASTINGS M.D. [facility] [facility] Comment on above: Performed By: #### A VIJAY RAMIREZ, BRENT #### [address] Urine bacteria detection by automated methodOrdered By: Reggie Maynard on 05-17-2022 Bacteria Auto Ql (U) None seen None Seen [facility] Urine clarity by refractomet ry automatedOrdered By: Reggie Maynard on 05-17-2022 Clarity Refractometry automated (U) Clear Clear [facility] Urine glucose measurement by automated test strip (mass/volume)Ordered By: Reggie Maynard on 05-17-2022 Glucose Auto test strip (U) [Mass/Vol] Normal mg/dL Normal [facility] Urine hemoglobin detection b y automated test stripOrdered By: Reggie Maynard on 05-17-2022 Hemoglobin Auto test strip Ql (U) Negative Negative [facility] Urine leukocyte esterase det ection by automated test stripOrdered By: Reggie Maynard on 05-17-2022 Leukocyte esterase Auto test strip Ql (U) 3+ Negative [facility] Urine sediment renal epithel ial cell count by microscopy (number/high power field)Ordered By: Reggie Maynard on 05-17-2022 Epithelial cells.renal LM.HPF (Urine sed) [#/Area] None seen [HPF] 0-1 [facility] Urobilinogen Auto test strip (U) [Mass/Vol]Ordered By: Reggie Quachzi on 05-17-2022 Urobilinogen (U) [Mass/Vol] Normal mg/dL Normal [facility] WBC Auto (Bld) [#/Vol]Ordere d By: Reggie Quachzi on 05-17-2022 WBC (Bld) [#/Vol] 7.0 10*3/uL 3.8-11.6 [facility] pH Auto test strip (U)Ordere d By: Reggie Quachzi on 05-17-2022 pH (U) 5.5 [pH] 5.0-9.0 [facility] AMYLASEon 05-01-2022 Amylase [Catalytic activity/Vol] 61 U/L Normal 25-115 [facility] Comment on above: Performed By: #### L IPA, CMP, ROSS #### [facility] [address] [place] [address] Dr. Radha Garcia CBC AUTO DIFFon 05-01-2022 BASO # 0.0 103/ul Normal 0.0-0.1 [facility] Comment on above: Performed By: #### C BC #### [facility] [address] [place] [address] Dr. Radha Garcia Basophils/100 WBC (Bld) 0.4 % Normal 0.2-2.0 [facility] Comment on above: Performed By: #### C BC #### [facility] [address] [place] [address] Dr. Radha Garcia EO # 0.2 103/ul Normal 0.0-0.7 [facility] Comment on above: Performed By: #### C BC #### [facility] [address] [place] [address] Dr. Radha Garcia Eosinophils/100 WBC (Bld) 3.0 % Normal 0.9-7.0 [facility] Comment on above: Performed By: #### C BC #### [facility] [address] [place] [address] Dr. Radha Garcia Erythrocyte distribution width (RBC) [Ratio] 12.4 % Normal 11.0-15.0 [facility] Comment on above: Performed By: #### C BC #### [facility] [address] [place] [address] Dr. Radha Garcia Hematocrit (Bld) [Volume fraction] 40.5 % Normal 36.0-48.0 [facility] Comment on above: Performed By: #### C BC #### [facility] [address] [place] [address] Dr. Radha Garcia Hemoglobin (Bld) [Mass/Vol] 13.7 g/dL Normal 12.0-16.0 [facility] Comment on above: Performed By: #### C BC #### [facility] [address] [place] [address] Dr. Radha Garcia IG # 0.01 10e3/ul Normal 0.00-0.03 [facility] Comment on above: Performed By: #### C BC #### [facility] [address] [place] [address] Dr. Radha Garcia IG % 0.1 % Normal 0.0-0.5 [facility] Comment on above: Performed By: #### C BC #### [facility] [address] [place] [address] Dr. Radha Garcia LYMPH # 2.1 103/ul Normal 1.2-3.8 [facility] Comment on above: Performed By: #### C BC #### [facility] [address] [place] [address] Dr. Radha Garcia Lymphocytes/100 WBC (Bld) 30.7 % Normal 20.5-60.0 [facility] Comment on above: Performed By: #### C BC #### [facility] [address] [place] [address] Dr. Radha Garcia MANUAL DIFF REQ NO Normal [facility] Comment on above: Performed By: #### C BC #### [facility] [address] [place] [address] Dr. Radha Garcia MCH (RBC) [Entitic mass] 29.9 pg Normal 26.7-34.0 [facility] Comment on above: Performed By: #### C BC #### [facility] [address] [place] [address] Dr. Radha Garcia MCHC (RBC) [Mass/Vol] 33.8 g/dL Normal 29.9-35.2 [facility] Comment on above: Performed By: #### C BC #### [facility] [address] [place] [address] Dr. Radha Garcia MCV (RBC) [Entitic vol] 88.4 fL Normal 81.0-99.0 [facility] Comment on above: Performed By: #### C BC #### [facility] [address] [place] [address] Dr. Radha Garcia MONO # 0.5 103/ul Normal 0.3-0.8 [facility] Comment on above: Performed By: #### C BC #### [facility] [address] [place] [address] Dr. Radha Garcia Monocytes/100 WBC (Bld) 6.6 % Normal 1.7-12.0 [facility] Comment on above: Performed By: #### C BC #### [facility] [address] [place] [address] Dr. Radha Garcia NEUT # 4.1 103/ul Normal 1.4-6.5 [facility] Comment on above: Performed By: #### C BC #### [facility] [address] [place] [address] Dr. Radha Garcia Neutrophils/100 WBC (Bld) 59.2 % Normal 43.0-75.0 [facility] Comment on above: Performed By: #### C BC #### [facility] [address] [place] [address] Dr. Radha Garcia Platelet mean volume (Bld) [Entitic vol] 10.6 fL Normal 9.5-13.5 [facility] Comment on above: Performed By: #### C BC #### [facility] [address] [place] [address] Dr. Radha Garcia PLT 263 103/ul Normal 150-450 [facility] Comment on above: Performed By: #### C BC #### [facility] [address] [address] [address] Radha Garcia RBC 4.58 106/ul Normal 4.20-5.40 [facility] Comment on above: Performed By: #### C BC #### [facility] [address] [place], [place] [address] Dr. Radha Garcia WBC 6.9 103/ul Normal 4.0-11.0 [facility] Comment on above: Performed By: #### C BC #### [facility] [address] [place], [place] [address] ABD/PELV W CONon [...] RAFA KAPLAN Date: 2022-05-01 03:30 Normal [facility] LIPASEon 05-01-2022 Lipase [Catalytic activity/Vol] 63.0 U/L Critically low 73.0-393.0 [facility] Comment on above: Performed By: #### L IPA, CMP, ROSS #### [facility] [address] [place], [place] [address] Dr. Radha Garcia PREG HCG QUALon 05-01-2022 , QUAL Negative Normal NEGATIVE [facility] Comment on above: Performed By: #### C BC #### [facility] [address] [address] [address] Radha Garcia PROF 14(COMP METB)on 022 Albumin [Mass/Vol] 3.9 g/dL Normal 3.4-5.0 [facility] Comment on above: Performed By: #### L IPA, CMP, ROSS #### [facility] [address] [address] [address] Radha Garcia Albumin/Globulin [Mass ratio] 1.2 {ratio} Normal [facility] Comment on above: Performed By: #### L IPA, CMP, ROSS #### [facility] [address] [address] [address] Radha Garcia ALP [Catalytic activity/Vol] 73 U/L Normal 46-116 [facility] Comment on above: Performed By: #### L IPA, CMP, ROSS #### [facility] [address] [address] [address] Radha Garcia ALT [Catalytic activity/Vol] 13 U/L Critically low 14-59 [facility] Comment on above: Performed By: #### L IPA, CMP, ROSS #### [facility] [address] [place] [address] Dr. Radha Garcia Anion gap [Moles/Vol] 9.0 mmol/L Normal [facility] Comment on above: Performed By: #### L IPA, CMP, ROSS #### [facility] [address] [address] [address] Radha Garcia AST [Catalytic activity/Vol] 12 U/L Critically low 15-37 [facility] Comment on above: Performed By: #### L IPA, CMP, ROSS #### [facility] [address] [address] [address] Radha Garcia Bilirubin [Mass/Vol] 0.6 mg/dL Normal 0.2-1.0 [facility] Comment on above: Performed By: #### L IPA, CMP, ROSS #### [facility] [address] [place] [address] Dr. Radha Garcia Calcium [Mass/Vol] 8.7 mg/dL Normal 8.5-10.1 [facility] Comment on above: Performed By: #### L IPA, CMP, ROSS #### [facility] [address] [address] [address] Radha Garcia Chloride [Moles/Vol] 106 mmol/L Normal 98-107 [facility] Comment on above: Performed By: #### L IPA, CMP, ROSS #### [facility] [address] [address] [address] Radha Garcia CO2 [Moles/Vol] 26.4 mmol/L Normal 21.0-32.0 [facility] Comment on above: Performed By: #### L IPA CMP, ROSS #### [facility] [address] [place] [address] Dr. Radha Garcia Creatinine [Mass/Vol] 0.71 mg/dL Normal 0.55-1.02 [facility] Comment on above: Performed By: #### L IPA, CMP, ROSS #### [facility] [address] [place] [address] Dr. Radha Garcia EGFR-AF [place] >60 Normal >=60 [facility] Comment on above: Performed By: #### L IPA CMP, ROSS #### [facility] [address] [place] [address] Dr. Radha Garcia EGFR-NON AF [place] >60 Normal >=60 [facility] Comment on above: Performed By: #### L IPA CMP, ROSS #### [facility] [address] [place] [address] Dr. Radha Garcia Globulin (S) [Mass/Vol] 3.3 g/dL Normal [facility] Comment on above: Performed By: #### L IPA, CMP, ROSS #### [facility] [address] [place] [address] Dr. Radha Garcia Glucose [Mass/Vol] 89 mg/dL Normal 74-106 [facility] Comment on above: Performed By: #### L IPA, CMP, ROSS #### [facility] [address] [address] [address] Radha Garcia Potassium [Moles/Vol] 3.4 mmol/L Critically low 3.5-5.1 [facility] Comment on above: Performed By: #### L IPA, CMP, ROSS #### [facility] [address] [place] [address] Dr. Radha Garcia Protein [Mass/Vol] 7.2 g/dL Normal 6.4-8.2 [facility] Comment on above: Performed By: #### L IPA, CMP, ROSS #### [facility] [address] [address] [address] Radha Garcia Sodium [Moles/Vol] 138 mmol/L Normal 136-145 [facility] Comment on above: Performed By: #### L IPA, CMP, ROSS #### [facility] [address] [place] [address] Dr. Radha Garcia Urea nitrogen [Mass/Vol] 12.0 mg/dL Normal 7.0-18.0 [facility] Comment on above: Performed By: #### L IPA, CMP, ROSS #### [facility] [address] [place] [address] Dr. Radha Garcia Urea nitrogen/Creatinine [Mass ratio] 16.9 mg/mg Normal [facility] Comment on above: Performed By: #### L IPA, CMP, ROSS #### [facility] [address] [place] [address] Dr. Radha Garcia Q - DRUG TOX MONITORING CONFIRMATION,URINEon 05-23-2021 Amphetamines Negative Normal <500 [facility] Comment on above: Order Comment: [facility] performed at: [facility], [employer] [facility], [address] [facility], [address] [place] [address], [place], [address], Data Management Specialist: Shamar Colunga MD [facility] Collection Date/Time: [id number] [facility] Results Received Date/Time: [id number] [facility] Reported Date/Time: FASTING: NO Performed By: #### 9 1486 #### [facility] [address] [place] [address] Barbiturates Negative Normal <300 [facility] Specialist Comment on above: Order Comment: [facility] performed at: [employer], [email or web address] [facility], [address] , [address] [place] [address], [address] [place] [address], Data Management Specialist: Shamar Colunga MD [facility] Date/Time: [facility] Results Received Date/Time: [facility] Reported Date/Time: FASTING: NO Performed By: #### 9 1486 #### [facility] [address] [place] [address] Benzodiazepines Negative Normal <100 [facility]ist Comment on above: Order Comment: [facility] performed at: [employer], [email or web address] [facility], [address] , [address] [place] [address], [address] [place] [address], Data Management Specialist: Shamar Colunga MD [facility] Date/Time: [facility] Results Received Date/Time: [facility] Reported Date/Time: FASTING: NO Performed By: #### 9 1486 #### [facility] [address] [place] [address] Cocaine Metabolite Negative Normal <150 [facility] Specialist Comment on above: Order Comment: [facility] performed at: [employer], [email or web address] [facility], [address] , [address] [place] [address], [phone], Data Management Specialist: Shamar Colunga MD [facility] Date/Time: [facility] Results Received Date/Time: [facility] Reported Date/Time: FASTING: NO Performed By: #### 9 1486 #### [facility] [address] [place] [address] COMMENT SEE NOTE Normal [facility] Comment on above: Order Comment: [facility] performed at: [employer], [email or web address] [facility], [address] , [address] [place] [address], [phone], Data Management Specialist: Shamar Colunga MD [facility] Date/Time: [facility] Results Received Date/Time: [facility] Reported Date/Time: FASTING: NO Result Comment: See Note 2 Note 1 This test was developed and its analytical performance characteristics have been determined by [email or web address]. It has not been cleared or approved [...] interpreting these drug results, please contact a [email or web address] Toxicology Specialist: [phone] ( ), M-F, 8am-6pm EST. Performed By: #### 9 1486 #### [facility] [address] [place] [address] Marijuana Metabolite 73 ng/mL High <5 [facility] Specialist Comment on above: Order Comment: [facility] performed at: [employer] [facility], [facility] [address], [address] [place] [address], [address] [place] [address], Data Management Specialist: Shamar Colunga MD [facility] Date/Time: [facility] Results Received Date/Time: [facility] Reported Date/Time: FASTING: NO Result Comment: See Note 1 Performed By: #### 9 1486 #### [facility] [address] [place] [address] Marijuana Metabolite 20 Positive Abnormal <20 [facility] Specialist Comment on above: Order Comment: [facility] performed at: [employer] [facility], [address], [address] [place] [address], [phone], Data Management Specialist: Shamar Colunga MD [facility] Date/Time: [facility] Results Received Date/Time: [facility] Reported Date/Time: FASTING: NO Performed By: #### 9 1486 #### [facility] [address] [place] [address] Methadone Metabolite Negative Normal <100 [facility] Comment on above: Order Comment: [facility] performed at: [employer], [email or web address] [facility], [address] , [address] [place] [address], [address] [place] [address], Data Management Specialist: Shamar Colunga MD [facility] Date/Time: [facility] Results Received Date/Time: [facility] Reported Date/Time: FASTING: NO Performed By: #### 9 1486 #### [facility] [address] [place] [address] Opiates Negative Normal <100 [facility] Specialist Comment on above: Order Comment: [facility] performed at: [employer], [email or web address] [facility], [address] , [address] [place] [address], [address] [place] [address], Data Management Specialist: Shamar Colunga MD [facility] Date/Time: [facility] Results Received Date/Time: [facility] Reported Date/Time: FASTING: NO Performed By: #### 9 1486 #### [facility] [address] [place] [address] Oxycodone Negative Normal <100 [facility]ist Comment on above: Order Comment: [facility] performed at: [employer], [email or web address] [facility], [address] , [address] [place] [address], [address], Data Management Specialist: Shamar Colunga MD [facility] Date/Time: [facility] Results Received Date/Time: [facility] Reported Date/Time: FASTING: NO Performed By: #### 9 1486 #### [facility] [address] [place] [address] Phencyclidine Negative Normal <25 [facility] Specialist Comment on above: Order Comment: [facility] performed at: [employer], [email or web address] [facility], [address] , [address] [place] [address], [address], Data Management Specialist: Shamar Colunga MD [facility] Date/Time: [facility] Results Received Date/Time: [id number] [facility] Reported Date/Time: FASTING: NO Performed By: #### 9 1486 #### [facility] [address] [place] [address] ERCPon 05-01-2021 ERCP [facility] Department of Radiology [address] [place] [address] Patient Name: JOVON LOPEZ : 1995 Sex: F Age: Race: White Pt. Location: [facility] Patient Status: D Ordered Date: 05/01/2021 5:00:00 [...] procedure. Electronically signed: Neris Guevara. Transcribed by: [email or web address], User Resident: Electronically Signed by: NERIS GUEVARA @ 05/03/2021 08:12 AM Normal [facility] Comment on above: Order Comment: Evalu ate Endoscopy Reporton Endoscopy Report MR#: [id number] [facility] Pt. Name: Jovon Lopez Surgery Date: 05/01/2021 Room #: M7A Date of : 1995 PROCEDURE NOTE ATTENDING: Gonzalez Powell M.D. [employer] SPECIALIST: Te Bacon MD. (Advanced Endoscopy Gastroenterology Fellow). [...] Bacon MD Date Trans: 05/01/2021 06:34 P/mmo [id number] Normal [facility] POC SARS COV2 ANTIGEN NEGATI VEon 05-01-2021 POC SARS COV2 ANTIGEN NEG Negative Normal NEGATIVE [facility] Comment on above: Result Comment: Nega [...] signs and symptoms consistent with COVID-19. The [employer] COVID-19 Ag Card is a lateral flow [...] Accreditation. Performed By: #### 3 1977 #### [facility] [address] [facility]. [place], [place] [id number] [place] [address] POC URINE PREGNANCYon 2020 Beta HCG ( test) Ql (U) Negative Normal NEGATIVE [facility] Comment on above: Result Comment: Perf ormed in PACU Performed By: #### 8 [id number] #### [facility] [address] [place] [address], [facility] Hemoglobinon 02-14-2021 Hemoglobin (Bld) [Mass/Vol] 11.4 g/dL Low 11.9-15.1 [facility] Comment on above: Performed By: #### H GB #### [address] [place] [address] Clerk Entry Level: Ilir Prasad MD HemoglobinOrdered By: Cherelle Mera on 02-14-2021 Hemoglobin.gastrointest inal spec 1 Ql (Stl) 11.4 g/dL Low 11.9 - 15.1 g/dL [facility] Phone: Interpretation and review of laboratory results Abnormal [facility] Phone: [facility] [employer] Phone: OPERATIVE REPORTon OPERATIVE REPORT [address] [address] OPERATIVE REPORT PATIENT NAME: JOVON LOPEZ : 1995 MED REC NO: [id number] ROOM: 0203 ACCOUNT NO: [id number] ADMIT DATE: 02/12/2021 PROVIDER: Fernando Hooks MD DATE OF PROCEDURE: 02/13/2021 PREOPERATIVE DIAGNOSES: at term, failed induction of labor, and intolerance to labor with late decelerations and brief episodes of bradycardia. SURGICAL PROCEDURE: Primary section, low transverse uterine segment. ANESTHESIA: Spinal. CHENILLE MACHINE OPERATOR: Nash Mera. ESTIMATED BLOOD LOSS: 800 mL. [...] was elevated, turned, fundal pressure placed, and infant was readily delivered. Nares and oropharynx were suctioned. Cord was clamped and cut after allowing the cord to briefly pulse and handed off to nursing staff attending delivery. [...] then a running imbricating interlocking fashion. A [id number] suture was placed on the right lateral [...] good condition. FERNANDO HOOKS MD [id number] Doc#: [id number] CC: Nash Mera [facility] TYPE AND SCREENOrdered By: Rosie Hooks on 02-13-2021 ABO/Rh Positive [facility] Work Phone: Arm Band Number [id number] [facility] Work Phone: Expiration Date 02/16/2021,2359 [facility] Work Phone: [facility] Work Phone: Type + Screenon 02-13-2021 Type + Screen Sample Expiration 02/16/2021,2359 Arm Band Number [id number] ABO/Rh(D) A POSITIVE Antibody Screen NEGATIVE [facility] Comment on above: Performed By: #### T YS #### [facility] [address] [place] [address] Clerk Entry Level: Ilir Prasad MD CBC auto differentialOrdered By: Nash Mera on 02-12-2021 Absolute Eos # 0.11 [facility] Work Phone: Absolute Immature Granulocyte 0.05 [facility] Work Phone: Absolute Lymph # 1.67 [facility] Work Phone: Absolute Kings # 0.44 [facility] Work Phone: Basophils (Bld) [#/Vol] 10*3/uL [facility] Work Phone: Basophils/100 WBC (Bld) 0 % 0 - 2 % M [employer] Phone: Differential Type NOT REPORTED [employer] Phone: Eosinophils/100 WBC (Bld) 1 % 1 - 4 % [employer] Phone: Hematocrit (Bld) [Volume fraction] 33.3 % Low 36.3 - 47.1 % [employer] Phone: Hemoglobin.gastrointest inal spec 1 Ql (Stl) 10.7 g/dL Low 11.9 - 15.1 g/dL [employer] Phone: Immature granulocytes/100 WBC (Bld) 1 % High 0 [employer] Phone: Interpretation and review of laboratory results Abnormal [employer] Phone: Lymphocytes/100 WBC (Bld) 20 % Low 24 - 43 % [employer] Phone: MCH (RBC) [Entitic mass] 28.5 pg 25.2 - 33.5 pg [employer] Phone: MCHC (RBC) [Mass/Vol] 32.1 g/dL 28.4 - 34.8 g/dL [employer] Phone: MCV (RBC) [Entitic vol] 88.6 fL 82.6 - 102.9 fL [employer] Phone: Monocytes/100 WBC (Bld) 5 % 3 - 12 % M [employer] Phone: NRBC Automated 0.0 0.0 per 100 WBC [employer] Phone: Platelet distribution width (Bld) [Ratio] 13.9 % 11.8 - 14.4 % [employer] Phone: Platelet Estimate NOT REPORTED [employer] Phone: Platelet mean volume (Bld) [Entitic vol] 11.5 fL 8.1 - 13.5 fL [employer] Phone: Platelets (Bld) [#/Vol] 229 10*3/uL [employer] Phone: RBC (Bld) [#/Vol] 3.76 10*6/uL Low 3.95 - 5.1 1 m/uL [employer] Work Phone: RBC (Bld) [#/Vol] NOT REPORTED [employer] Phone: Segmented neutrophils/100 WBC (Bld) 73 % High 36 - 65 % [employer] Phone: [employer] Work Phone: WBC (Bld) [#/Vol] 8.3 10*3/uL [employer] Phone: WBC (Bld) [#/Vol] NOT REPORTED [employer] Phone: [employer] Phone: CBC with Diffon 02-12-2021 Abs. Basophil <0.03 Normal 0.00-0.20 [facility] Comment on above: Performed By: #### C DP #### [facility] [address] [place] [address] [place] [address] Clerk Entry Level: Ilir Prasad MD Abs.Imm.Granulocyte 0.05 k/uL Normal 0.00-0.30 [facility] Comment on above: Performed By: #### C DP #### [facility] [address] [place] [address] Clerk Entry Level: Ilir Prasad MD Abs.Neutrophil (Seg) 5.99 k/uL Normal 1.50-8.10 [facility] Comment on above: Performed By: #### C DP #### [facility] [address] [place], [place] [id number] Clerk Entry Level: Ilir Prasad MD Basophils/100 WBC (Bld) 0 % Normal 0-2 M [facility] Comment on above: Performed By: #### C DP #### [facility] [address] [place] [address] Dr. [place], [place] [id number] Clerk Entry Level: Ilir Prasad MD Eosinophils (Bld) [#/Vol] 0.11 10*3/uL Normal 0.00-0.44 [facility] Comment on above: Performed By: #### C DP #### [facility] [address] [place] [address] [place]. [place], [place] [id number] Clerk Entry Level: Ilir Prasad MD Eosinophils/100 WBC (Bld) 1 % Normal 1-4 [facility] Comment on above: Performed By: #### C DP #### [address] [place], [facility]83 Clerk Entry Level: Ilir Prasad MD Erythrocyte distribution width (RBC) [Ratio] 13.9 % Normal 11.8-14.4 [facility] Comment on above: Performed By: #### C DP #### [address] [place], [place] 0898483 Clerk Entry Level: Ilir Prasad MD Hematocrit (Bld) [Volume fraction] 33.3 % Low 36.3-47.1 [facility] Comment on above: Performed By: #### C DP #### [facility] [address] [place] [address] Dr. [place], [facility]83 Clerk Entry Level: Ilir Prasad MD Hemoglobin (Bld) [Mass/Vol] 10.7 g/dL Low 11.9-15.1 [facility] Comment on above: Performed By: #### C DP #### [address] [place], [place] [id number] Clerk Entry Level: Ilir Prasad MD Immature granulocytes/100 WBC (Bld) 1 % High 0 [facility] Comment on above: Performed By: #### C DP #### [facility] [address] [place], [place] 0503183 Clerk Entry Level: Ilir Prasad MD Lymphocytes (Bld) [#/Vol] 1.67 10*3/uL Normal 1.10-3.70 [facility] Comment on above: Performed By: #### C DP #### [facility] [address] [place], [facility]83 Clerk Entry Level: Ilir Praasd MD Lymphocytes/100 WBC (Bld) 20 % Low 24-43 [facility] Comment on above: Performed By: #### C DP #### [address] [place], [facility]83 Clerk Entry Level: Ilir Prasad MD MCH (RBC) [Entitic mass] 28.5 pg Normal 25.2-33.5 [facility] Comment on above: Performed By: #### C DP #### [address] [place], [facility]83 Clerk Entry Level: Ilir Prasad MD MCHC (RBC) [Mass/Vol] 32.1 g/dL Normal 28.4-34.8 [facility] Comment on above: Performed By: #### C DP #### [address] [place], [facility]83 Clerk Entry Level: Ilir Prasad MD MCV (RBC) [Entitic vol] 88.6 fL Normal 82.6-102.9 M [facility] Comment on above: Performed By: #### C DP #### [address] [place], [facility]83 Clerk Entry Level: Ilir Prasad MD Monocytes (Bld) [#/Vol] 0.44 10*3/uL Normal 0.10-1.20 [facility] Comment on above: Performed By: #### C DP #### [address] [place], [place] 3700183 Clerk Entry Level: Ilir Prasad MD Monocytes/100 WBC (Bld) 5 % Normal 3-12 M [facility] Comment on above: Performed By: #### C DP #### [facility] [address] [place], [place] [id number] Clerk Entry Level: Ilir Prasad MD Neutrophil (Seg) 73 % High 36-65 [facility] Comment on above: Performed By: #### C DP #### [facility] [address] [place], [place] [id number] Clerk Entry Level: Ilir Prasad MD NRBC Automated 0.0 per 100 WBC Normal 0.0 [facility] Comment on above: Performed By: #### C DP #### [facility] [address] [place], [place] 5304783 Clerk Entry Level: Ilir Prasad MD Platelet mean volume (Bld) [Entitic vol] 11.5 fL Normal 8.1-13.5 [facility] Comment on above: Performed By: #### C DP #### [address] [place], [place] 6692483 Clerk Entry Level: Ilir Prasad MD Platelets (Bld) [#/Vol] 229 10*3/uL Normal 138-453 [facility] Comment on above: Performed By: #### C DP #### [facility] [address] [place] [address] Dr. [place], [place] [id number] Clerk Entry Level: Ilir Prasad MD RBC (Bld) [#/Vol] 3.76 10*6/uL Low 3.95-5.11 [facility] Comment on above: Performed By: #### C DP #### [address] [place] [address] Clerk Entry Level: Ilir Prasad MD WBC (Bld) [#/Vol] 8.3 10*3/uL Normal 3.5-11.3 [facility] Comment on above: Performed By: #### C DP #### [facility] [address] [place] [address] Clerk Entry Level: Ilir Prasad MD Auto Diff Performed NOT REPORTED Normal [facility] Comment on above: Performed By: #### C DP #### [facility] [address] [place] [address] Clerk Entry Level: Ilir Prasad MD Platelet Estimate NOT REPORTED Normal [facility] Comment on above: Performed By: #### C DP #### [facility] [address] [place] [address] Clerk Entry Level: Ilir rPasad MD RBC morphology finding Nom (Bld) NOT REPORTED Normal [facility] Comment on above: Performed By: #### C DP #### [facility] [address] [place] [address] Clerk Entry Level: Ilir Prasad MD WBC Morphology NOT REPORTED Normal [facility] Comment on above: Performed By: #### C DP #### [facility] [address] [place], [place] 1245183 Clerk Entry Level: Ilir Prasad MD DRUG SCREEN MULTI URINEOrder ed By: Nash Mera on 02-12-2021 Amphetamine Screen, Ur Negative NEGATIVE [facility] [employer] Work Phone: Barbiturate Screen, Ur Negative NEGATIVE [facility] Work Phone: Benzodiazepine Screen, Urine Negative NEGATIVE [facility] Work Phone: Buprenorphine Urine Negative NEGATIVE [facility] Work Phone: Cannabinoid Scrn, Ur Negative NEGATIVE [facility] [employer] Work Phone: Cocaine Metabolite, Urine Negative NEGATIVE [facility] Work Phone: MDMA, Urine NOT REPORTED NEGATIVE [facility] Work Phone: Methadone Screen, Urine Negative NEGATIVE M [facility] Work Phone: Methamphetamine, Urine Negative NEGATIVE [facility] Work Phone: Opiates, Urine Negative NEGATIVE [facility] Work Phone: Oxycodone Screen, Ur Negative NEGATIVE [facility] Work Phone: Phencyclidine, Urine Negative NEGATIVE [facility] Work Phone: Propoxyphene, Urine Negative NEGATIVE [facility] Work Phone: Test Information NOT REPORTED [facility] Work Phone: Tricyclic Antidepressants, Urine Negative NEGATIVE [facility] Work Phone: Comment on above: Drug screen results are to be used for medical purposes only. All positive results are unconfirmed. Testing for employment or legal uses should be sent to a reference laboratory for confirmation. [facility] Work Phone: Drug Scr, Abuse, Uron 2020 Amphetamine(s),Ur Negative Normal NEG [facility] Comment on above: Performed By: #### D AU #### [facility] [address] [place] [address] [place] [address] Clerk Entry Level: Ilir Prasad MD Barbiturate(s),Ur Negative Normal NEG [facility] Comment on above: Performed By: #### D AU #### [facility] [address] [place] [address] [place] [address] Clerk Entry Level: Ilir Prasad MD Benzodiazepine(s) Negative Normal NEG [facility] Comment on above: Performed By: #### D AU #### [address] [place] [address] Clerk Entry Level: Ilir Prasad MD Buprenorphrine, Ur Negative Normal NEG [facility] Comment on above: Performed By: #### D AU #### [address] [place], [place] 085[address]83 Clerk Entry Level: Ilir Prasad MD Cannabinoid(s),Ur Negative Normal NEG [facility] Comment on above: Performed By: #### D AU #### [facility] [address] [place], [place] 3173983 Clerk Entry Level: Ilir Prasad MD Cocaine Metabolite Negative Normal [facility] Comment on above: Performed By: #### D AU #### [facility] [address] [place], [place] 2884783 Clerk Entry Level: Ilir Prasad MD Methadone Ql (U) Negative Normal NEG [facility] Comment on above: Performed By: #### D AU #### [facility] [address] [place] [address] [place]. [place], [place] [id number] Clerk Entry Level: Ilir Prasad MD Methamphetamine, Ur Negative Normal [facility] Comment on above: Performed By: #### D AU #### [facility] [address] [place] [address] Clerk Entry Level: Ilir Prasad MD Opiate(s), Ur Negative Normal [facility] Comment on above: Performed By: #### D AU #### [facility] [address] [place] [address] Dr. [place], [place] 2129783 Clerk Entry Level: Ilir Prasad MD Oxycodone, Urine Negative Normal NEG [facility] Comment on above: Performed By: #### D AU #### [facility] [address] [place], [place] 1731483 Clerk Entry Level: Ilir Prasad MD Phencyclidine, Ur Negative Normal [facility] Comment on above: Performed By: #### D AU #### [facility] [address] [place], [place] 5497083 Clerk Entry Level: Ilir Prasad MD Propoxyphene,Urine Negative Normal [facility] Comment on above: Performed By: #### D AU #### [facility] [address] [place], [place] 3016583 Clerk Entry Level: Ilir Prasad MD Tricyclic antidepressants Screen Ql (U) Negative Normal NEG [facility] Comment on above: Result Comment: Drug screen results are to be used for medical purposes only. All positive results are unconfirmed. Testing for employment or legal uses should be sent to a reference laboratory for confirmation. Performed By: #### D AU #### [facility] [address] [place], [place] 7658583 Clerk Entry Level: Ilir Prasad MD Interpretive Info NOT REPORTED Normal [facility] Comment on above: Performed By: #### D AU #### [facility] [address] [place], [place] 6279683 Clerk Entry Level: Ilir Prasad MD MDMA, Urine NOT REPORTED Normal NEG [facility] Comment on above: Performed By: #### D AU #### [facility] [address] [place] [address] [place] [address] Clerk Entry Level: Ilir Prasad MD GBS, External ResultOrdered By: Historical Provider on 01-29-2021 GBS, External Result Negative [facility] [employer] [facility]: ABO, External ResultOrdered By: Historical Provider on 08-15-2020 ABO, External Result A [facility] [employer] Phone: HIV, External ResultOrdered By: Historical Provider on 08-15-2020 HIV, External Result Non-Reactive [facility] [employer] Phone: Hepatitis B, External Result Ordered By: Historical Provider on 08-15-2020 Hep B, External Result Negative [facility] [employer] Phone: No Panel InformationOrdered By: Historical Provider on 08-15-2020 [facility]: PROFILE IOrdered By : Historical Provider on 08-15-2020 ABO/Rh Positive [employer] Phone: Rh Factor, External ResultOr dered By: Historical Provider on 08-15-2020 Rh Factor, External Result Positive [employer] Phone: Hepatitis C Antibody, Mail Machine Operator al ResultOrdered By: Historical Provider on 07-26-2020 Hepatitis C Antibody, External Result Negative [employer] Phone: No Panel InformationOrdered By: Historical Provider on 07-26-2020 [employer] Phone: RPR, External LabOrdered By: Historical Provider on 07-26-2020 RPR, External Result Non-Reactive [employer] Phone: Vag Pathogens DNAon 08-22-19 19 Hazel vag DNA Probe Positive Critically abnormal Negative for Gardnerella vaginalis by DNA Probe [facility] Comment on above: Result Comment: This is suggestive, but not diagnostic of bacterial vaginosis, results should be interpreted in conjunction with other data such as pH, amine odor, clue cells and vaginal discharge characteristics. Performed By: #### V AGDNA #### [facility] [email or web address] [address] [place] [address] Protein mass conc Negative Normal Negative f or Lucía species by DNA Probe [facility] Comment on above: Performed By: #### V AGDNA #### [facility] [email or web address] [address] [place] [address] Trich vag DNA Probe Negative Normal Negative for Trichomonas vaginalis by DNA Probe [facility] Comment on above: Performed By: #### V AGDNA #### [facility] [email or web address] [address] [place] [address] CNOVon 08-20-2018 CNOV Office Visit (GISELLA ) JOVON LOPEZ ([id number]) 1995 F CHT Date Time Provider Department 08/20/18 2:00 PM BRIGITTE MAIN (PREMIUM SERVICE REPRESENTATIVE) GISELLA During your visit today, we recorded the following information about you: Blood pressure Weight Height Last Period 110/70 60.3 kg 1.575 m 07/20/18 Kaycee Horvath VIMAL 08/20/2018 2:17 PM Signed Hydrographer offered: Patient declines. Brigitte Main APRN.CNP 08/20/2018 [...] external genitalia normal, normal Bartholin's glands, urethra, [place]'s glands, no vulvar lesions, no cervical lesions, good vaginal support, normal appearing perineal body and perianal region, moderate amount yellow discharge noted BIMANUAL: uterus normal size, shape and consistency, no adnexal masses and non-tender RECTOVAGINAL: deferred. NEURO: alert and oriented x3 and alert and oriented x3,exam grossly non-focal EXTREMITIES: normal ASSESSMENT: Normal NURSE RESEARCHER exam Breast cancer screening Menorrhagia with irreg [...] Date Reviewed: 08/20/2018 Reviewed by: Brigitte Grier (Import Customs Clearing Agent) Qing - Fully Assessed Reason for Visit: Lease Out Man Exam [50] Cmt: Vaginal pain and discharge [...] test, unconfirmed [Z32.00] Order(s):PAP FLUID CERVICAL SCREENING [8389373] Order #: [id number] VAGINAL PATHOGENS DNA PROBES [SQVAGDNA] Order #: [id number] GC/CHLAMYDIA DNA DET [SQGCCAMP] Order #: [id number] TSH BLD [SQTSH] Order #: [id number] PROLACTIN BLD [SQPROL] Order #: [id number] TESTOSTERONE, FREE AND TOTAL [SQFTESTO] Order #: [id number] HGB A1C [AVHBL3D] Order #: [id number] DHEA-S BLD [SQDHEAS] Order #: [id number] FSH BLD [SQFSH] Order #: [id number] INSERT INTRAUTERINE DEVICE [[id number]] Order #: [id number] HCG QUAL UR B/O [[id number]] Order #: [id number] Prescriptions as of 08/20/2018 Sig: HYDROCODONE 5 MG-ACETAMINOPHE* Take 1 tablet by mouth every * Problem List As Of Date: 08/20/2018 (None) Visit Notes: >> Kaycee Horvath MA ThuAug 20, 2018 2:11 PM Status: Signed Hydrographer offered: Patient declines. >> Kaycee Horvath MA ThuAug 20, 2018 4:38 PM Status: Signed Negative upt. Encounter Status:Closed by BRIGITTE MAIN CNP on 08/20/18 Normal [facility] CYTOLOGYon 08-20-2018 CYTOLOGY Specimen originated from [facility] Specimen #: [id number] Submitting Physician: BRIGITTE YOUNG CNP SPECIMEN SUBMITTED [...] from every slide are reviewed by a masonry teacher. Yuki A Eron, CT(ASCP) (Electronic Signature) ____ CLINICAL DATA ROUTINE EXAM, HPV Testing: Yes, Reflex HPV for ASCUS Date of Last Menstrual Period: 07/20/2018 STAINS A: CERVICAL, SCREENING, FLUID THIN PREP NURSE RESEARCHER Brigitte Echavarria M.D., Roofer Assistant Date of Report: 08/25/2018 Date of Procedure: 08/20/2018 Date of Receipt: 08/23/2018 Submitted by: BRIGITTE YOUNG CNP Location: [facility] Diagnostic interpretation performed at [facility], [address] [place] [address]. CLIA Number: [id number] The Pap Smear is a screening test for cervical cancer. False negative results occur with all screening tests, emphasizing the need for rescreening at recommended intervals, and clinical correlation. Normal [facility] GC/Chlamydia Amplifon 2018 Chlamydia Amplif Positive Critically abnormal [facility] Comment on above: Result Comment: In l ow prevalence populations, the likelihood of a false positive may be higher than a true positive. Retesting by another method may be appropriate for patients who lack risk factors or clinical signs and symptoms consistent with infection. Performed By: #### G CCT #### [place] [address] GC Amplification Negative Normal [facility] Comment on above: Performed By: #### G CCT #### [place] [address] GC/Chlam Amp Source Cervix Normal [facility] Comment on above: Performed By: #### G CCT #### [place] [address] PROGRESSon 08-20-2018 Protein mass conc HNO ID: [id number] Author: Brigitte Grier (Import Customs Clearing Agent) O'Young Service: ? Author Type: Nurse Practitioner [...] external genitalia normal, normal Bartholin's glands, urethra, [place]'s glands, no vulvar lesions, no cervical lesions, good vaginal support, normal appearing perineal body and perianal region, moderate amount yellow discharge noted BIMANUAL: uterus normal size, shape and consistency, no adnexal masses and non-tender RECTOVAGINAL: deferred. NEURO: alert and oriented x3 and alert and oriented x3,exam grossly non-focal EXTREMITIES: normal ASSESSMENT: Normal NURSE RESEARCHER exam Breast cancer screening Menorrhagia with irreg [...] for insertion pending ins coverage Brigitte Main APRN.PREMIUM SERVICE REPRESENTATIVE Normal [facility] Vital Signs Date Time Vital Sign Value Performing Clinician Faci lity 05-17-2022 15:15-0500 Diastolic blood pressure 59 mm[Hg] PHYSICIAN NO [facility] 05-17-2022 15:15-0500 Heart rate 67 /min PHYSICIAN NO [facility] 05-17-2022 15:15-0500 Respiratory rate 15 /min PHYSICIAN NO [facility] 05-17-2022 15:15-0500 SaO2% (BldA) [Mass fraction] 99 % PHYSICIAN NO [facility] 05-17-2022 15:15-0500 Systolic blood pressure 111 mm[Hg] PHYSICIAN NO [facility] 05-17-2022 11:45-0500 Body height 160.02 cm PHYSICIAN NO [facility] 05-17-2022 11:45-0500 Body temperature 98 [degF] PHYSICIAN NO [facility] 05-17-2022 11:45-0500 Body weight 58 kg PHYSICIAN NO [facility] 02-15-2021 07:23-0400 Body temperature 98.1 [degF] Nash Mera APRN - CNM Work Phone: [employer] Work Phone: 02-15-2021 07:23-0400 Diastolic blood pressure 59 mm[Hg] Nash Mera APRN - CNM Work Phone: [employer] Work Phone: 02-15-2021 07:23-0400 Heart rate 71 /min Nash Floro TRANSFER CAR OPERATOR - CNM Work Phone: [employer] Work Phone: 02-15-2021 07:23-0400 Respiratory rate 16 /min Nash Mera APRN - CNM Work Phone: [employer] Work Phone: 02-15-2021 07:23-0400 Systolic blood pressure 98 mm[Hg] Nash Mera APRN - CNM Work Phone: [employer] Work Phone: 02-13-2021 20:25-0400 SaO2% (BldA) [Mass fraction] 97 % Nash Mera APRN - CNM Work Phone: [employer] Work Phone: 02-12-2021 15:50-0400 Body height 157.5 cm Nash Mera APRN - CNM Work Phone: [employer] Work Phone: 02-12-2021 15:50-0400 Body mass index (BMI) [Ratio] 33.29 kg/m2 Nash Mera APRN - CNM Work Phone: [employer] Work Phone: 02-12-2021 15:50-0400 Body weight 82.56 kg Nash Mera APRN - CNM Work Phone: [employer] Work Phone: Encounters Encounter Date Encounter Type Care Provider Facility Start: 06-04-2023 End: 06-05-2023 ambulatory NASH L FLORO Not Available Start: 05-14-2023 End: 05-15-2023 ambulatory NASH L FLORO Not Available Start: 04-21-2023 End: 04-21-2023 Emergency department patient visit PHYSICIAN NO FAMILY Facility:[facility] Start: 10-19-2022 End: 10-19-[address] NONE LISTED REQUEST Facility: Start: 05-26-2022 ambulatory Alize Jefferson RN NURS E SALES ACCOUNT LEADER Comment on above: Muscle Aches Start: 05-24-2022 End: 05-25-2022 Emergency department patient visit IKE HASTINGS Facility:[facility] Start: 05-23-2022 End: 05-23-2022 ambulatory GONZALEZ POWELL [facility] Start: 05-17-2022 End: 05-17-2022 Emergency department patient visit Reggie Maynard Facility:[facility] Start: 05-17-2022 End: 05-17-2022 Emergency department patient visit PHYSICIAN MELISSA CHRISTIE [facility] Start: 05-01-2022 End: 05-01-[address] NONE LISTED REQUEST Facility: Start: 05-01-2021 End: 05-02-2021 ambulatory REFERRED SELF Facility:[facility] Start: 02-12-2021 End: 02-15-2021 Evaluation and management of inpatient NASH MERA [facility] Start: 02-12-2021 End: 02-15-2021 Evaluation and management of inpatient Nash Mera TRANSFER CAR OPERATOR - CN [facility] Comment on above: S/P primary low arredondo sverse (Primary Dx) Start: 08-20-2018 End: 08-23-2018 Patient encounter procedure BRIGITTE BA [facility] Luis Procedures Date Procedure Procedure Detail Performing Clinician Start: 02-14-2021 Blood count hemoglobin Nash Mera TRANSFER CAR OPERATOR - CNM Work Phone: Start: 02-13-2021 Antibody screen Nash Mera TRANSFER CAR OPERATOR - CNM Work Phone: Start: 02-13-2021 Blood typing serolog ic abo Fernando Hooks MD Work Phone: Start: 02-12-2021 Blood count complete auto&auto difrntl wbc Nash Mera TRANSFER CAR OPERATOR - CNM Work Phone: Start: 02-12-2021 Drug screen class li st a Nash Mera TRANSFER CAR OPERATOR - CNM Work Phone: Start: 01-29-2021 GBS, EXTERNAL RESULT Hi storical Summer HERNANDEZ Start: 08-15-2020 ABO, EXTERNAL RESULT Hi alban Wheeler MD Start: 08-15-2020 HEPATITIS B, EXTERNA L RESULT Historical Provider Start: 08-15-2020 HIV, EXTERNAL RESULT Hi alban Wheeler MD Start: 08-15-2020 Obstetric panel Histori brian Provider Start: 08-15-2020 RH FACTOR, EXTERNAL RESULT Historical Provider Start: 07-26-2020 HEPATITIS C ANTIBODY , EXTERNAL RESULT Historical Provider Start: 07-26-2020 RPR, EXTERNAL RESULT Hemant Wheeler MD H/O: section S/P primar y low transverse Nash Mera TRANSFER CAR OPERATOR - CNM Work Phone: H/O: section S/P primar y low transverse Nash Mera TRANSFER CAR OPERATOR - CNM Work Phone: Plan of Treatment Date Care Activity Detail Author Start: 02-06-2022 Influenza vaccination INFLUENZA (#1) [facility] Start: 08-20-2021 PAP TESTING PAP TESTING [facility] Start: 06-08-2021 DEPRESSION ASSESSMENT DEPRESSION ASS ESSMENT [facility] Start: 02-06-2021 Influenza vaccination Flu vaccine (# 1) [employer] Phone: Start: 2018 Screening for malign ant neoplasm of cervix Pap smear [employer] Phone: Start: 2016 DTaP/Tdap/Td vaccine (1 - Tdap) DTaP/Tdap/Td vaccine (1 - Tdap) [employer] Phone: Start: 2016 Urine microalbumin profile DTAP,TDAP,TD (1 - Tdap) [facility] Start: 2015 HEPATITIS C SCREENING HEPATITIS C SC REENING [facility] Start: 2015 HIV SCREENING HIV SCREENING [facility] Start: 2013 Screening for Chlamy graham trachomatis Chlamydia screen [employer] Phone: Start: 2012 [facility] Work Phone: Start: 2011 PEDS TO ADULT TRANSI TION ANNUAL ASSESSMENT PEDS TO ADULT TRANSITION ANNUAL ASSESSMENT [facility] Start: 2009 COVID-19 Vaccine (1) COVID-19 Vaccin e (1) [employer] Phone: Start: 2009 PEDS TO ADULT TRANSI TION INITIAL DISCUSSION PEDS TO ADULT TRANSITION INITIAL DISCUSSION [facility] Start: 2008 HPV vaccine (1 - 2-d ose series) HPV vaccine (1 - 2-dose series) [facility] Start: 1998 Varicella vaccine (1 of 2 - 2-dose childhood series) Varicella vaccine (1 of 2 - 2-dose childhood series) [employer] Phone: Start: 1997 COVID-19 VACCINE (#1) COVID-19 VACCI NE (#1) [facility] Start: 1997 HEPATITIS B (1 of 3 - 3-dose series) HEPATITIS B (1 of 3 - 3-dose series) [facility] Start: 1997 Hepatitis C screening Hepatitis C sc abena [employer] Phone: Bacteria identified in Urine by Culture [facility] Oxygen therapy [[facility] Data Set] Initiate Oxygen Therapy Protocol Respiratory Care Routine Daily until discontinued starting 02/13/2021 [employer] Phone: Comment on above: Daily until disconti nued starting 02/13/2021 Patient Education Abdominal Pain , Adult ED [facility] Work Phone: Patient referral [facility] Work Phone: Spirometry panel Incentive blanka metry Respiratory Care Routine Every 2hr while awake until discontinued starting 02/13/2021 [employer] Phone: Comment on above: Every 2hr while awak e until discontinued starting 02/13/2021 Immunizations Immunization Date Immunization Notes Care Provider Austyn knott 02-13-2021 diphtheria, tetanus toxoids and acellular pertussis vaccine, unspecified formulation Nash Cardoso CNM Work Phone: [employer] Phone: 02-13-2021 measles, mumps and rubella virus vaccine Nash Mera TRANSFER CAR OPERATOR - CNM Work Phone: [facility] Work Phone: Payers Date Payer Category Payer Self-pay 2021 Medicaid [facility] MED[facility] [employer] MEDICAID [facility] [id number] 2021-Present [phone] [address] [place] [address] Medicaid [id number] 1997 Unknown [id number] 173 1997 Unknown [id number]. 647 1997 Unknown [id number]. 593 1997 Unknown [id number] [id number]. 593 1997 Unknown [id number] 2.16.840.1.934131.3.579.2. 1259 1997 Unknown [id number] 2.16.840.1.522856.3.579.2. 1259 1997 Unknown [id number]. 1259 1959 Private Health Insurance [id number] 1959 Unknown [id number] Unknown [id number]. 531 Unknown [id number]. 531 Social History Date Type Detail Facility Start: 08-20-2018 End: 02-13-2021 Tobacco smoking status [facility] Never smoker [facility] Start: 08-20-2018 End: 02-13-2021 Tobacco use and exposure Never used [employer] Start: 02-13-2021 Alcohol intake Ex-drinker (finding) [employer] Phone: Start: 1997 Sex Assigned At Not on file M [employer] Phone: Exposure to SARS-CoV -2 (event) Not sure [employer] Start: 05-17-2022 Tobacco smoking stat us NHIS Smoker (finding) [facility] Start: 1995 Sex Assigned At Female F [facility] Start: 05-24-2022 Alcohol intake Current drinke r of alcohol (finding) [facility] Start: 08-20-2018 Tobacco Comment Smokes radhames--smokeless cigs. [facility] Start: 08-20-2018 Alcohol Comment a couple times per month [facility] Clinical Note 06-06-2022 Note Date & Type Note Facility 06-06-2022 Note Please notify herman timmons that all of her labs are normal. We will proceed with EGD for further evaluation as planned. She needs to follow up with her PCP or whoever ordered the UA. This was not ordered by us and is abnormal. Please advise patient to follow up with ordering provider. [facility] Note 05-26-2022 Telephone Encounter - Alize [...] ED now, agreeable. documented in this encounter [facility] Progress note 05-23-2022 Note Date & Type Note Facility 05-23-2022 Note ------ Attestation signed by Gonzalez Powell MD at 05/23/2022 7:30 PM I personally saw and examined the patient on the same date of service as resident/fellow . I discussed the findings and therapeutic plan with the resident/fellow . I agree with the documentation, except for any edits/updates below. ------ [facility] Gastroenterology History & Physical CHIEF COMPLAINT Chief Complaint Patient presents with New Patient Fatigue Had gallbladder removed in 03/2021, Dr. Powell found and fixed leak 04/2021, pt is having major problems with eating and drinking. Was referred back in 2020 HISTORY OF PRESENT ILLNESS: Jovon Lopez is a 27 y.o. female with history laparoscopic cholecystectomy on 03/25/2021 at [facility] (in setting of cholecystitis) complicated by biliary leak status post biliary stent on 03/28/2021 and transferred back to [employer]. While there, she had worsening abdominal pain [...] cholangiogram. Biliary sphincterotomy was performed. A 10 Maori X 9 cm plastic biliary stent was [...] bowel sounds, soft, (more content not included)... [facility] History of Present illness Narrative 02-15-2021 [...] I did review with her that the protection consultant can review pump usage with her [...] 02/13/211954 108/68 70 16 96 % 02/13/21 1940 112/70 78 16 95 % 02/13/21 193 [...] to bend right lower extremity at knee [employer] Sales Record Supervisor Note: admissions assistant/photography assistant primary section with Dr Hooks Closed SQ layer and also closed skin incision. All edges approximated, no bleeding or drainage noted. glass technician/installer places sterile dressing over incision. Patient tolerated [...] was recovered from decels. Pitocin remains off. 8 enroute to hospital I called Dr Hooks. I reported to [...] CRNA present in department. Surgery notified that bindery supervisor and recovery nurse needed for impending . documented in this encounter [employer] Phone: Hospital Discharge instructions 02-15-2021 Instructions Note Date & Type Note Facility 02-15-2021 Hospital Discharg e instructions Lila Mcintosh RN - 02/15/2021 Follow-up with your OB doctor as specified. [facility] OB Department phone: Dr. Neva Smith CNM Dr. Brittani Espinoza [facility] [address] [facility] [address] [place] Lani Mera, MSN, TRANSFER CAR OPERATOR, CNM [place] [id number] [facility] [address] DIET Eat a well balanced diet focusing on foods high in fiber and protein. Drink plenty of fluids especially water. To avoid constipation you may take a mild stool softener as recommended by your doctor or senior principal software engineer. ACTIVITY Gradually increase your activity. Resume exercise regimen only after advice by your doctor or senior principal software engineer. Avoid lifting anything heavier than a gallon of milk for SIX weeks. Avoid driving until your doctor or senior principal software engineer has given their approval. Rise slowly from [...] of harming yourself or your . If infant will not stop crying, contact another adult for help or place infant in their crib on their back and [...] medications as recommended by your doctor or senior principal software engineer for pain If you develop a warm, [...] vitamins as directed by your doctor or senior principal software engineer. Refer to the booklet in the folder/binder for more information. If you feel you need more assistance or have questions, please call Loreta Reyes IBCLC, protection consultant, at or the OB department to [...] they become loose or soiled. If used, Indra should be removed by your care provider. [...] in your calf. documented in this encounter [employer] Phone: Hospital course Narrative 02-15-2021 Kyra Smith [...] for: HEPBSAG HIV: No results found for: [id number] Results for orders placed or performed during [...] # 1.67 1.10 - 3.70 k/uL Absolute Kings # 0.44 0.10 - 1.20 k/uL Absolute [...] Range Expiration Date 02/16/2021,2359 Arm Band Number [id number] ABO/Rh A POSITIVE Antibody Screen NEGATIVE complications: none Discharge Medication: Jovon Lopez Home Medication Instructions [place]:[id number] Printed on:02/15/21 1002 Medication Information docusate sodium (COLACE) 100 MG [...] post depression check documented in this encounter [employer] Phone: Evaluation note Note Date & Type Note Facility Evaluation note Diagnosis S/P primary low transverse - Primary delivery, without mention of indication, unspecified as to episode of care Encounter for induction of labor Term intolerance to labor, delivered, current hospitalization Abnormality in heart rate/rhythm, delivered, with or without mention of antepartum condition documented in this encounter [facility] Work Phone: Evaluation note Note Date & Type Note Facility Evaluation note No assessment information availa ble [facility] Work Phone: Hospital Discharge instructions Note Date & Type Note Facility Hospital Discharge instructions Additional Instructions Follow-up with GI doctor provided Return to the ED if develop worsening symptoms or concerns take the new medications as prescribed, use pepto bismol, tums as needed avoid any spicy foods, fatty foods and avoid alcohol [facility] Work Phone: Summary Purpose Family [...] section and content) DATE CREATED AUTHOR 08/25/2018 [facility] DATE CREATED AUTHOR AUTHOR'S ORGANIZ ATION 02/16/2021 [facility] DATE CREATED AUTHOR AUTHOR'S ORGANIZ ATION 05/21/2021 [facility] DATE CREATED AUTHOR AUTHOR'S ORGANIZ ATION 05/27/2021 [facility] dical Specialist DATE CREATED AUTHOR AUTHOR'S ORGANIZ ATION 05/30/2022 [facility] DATE CREATED AUTHOR AUTHOR'S ORGANIZ ATION 07/17/2022 [facility] DATE CREATED AUTHOR AUTHOR'S ORGANIZ ATION 10/22/2022 [facility] DATE CREATED AUTHOR AUTHOR'S ORGANIZ ATION 05/02/2023 [facility] DATE CREATED AUTHOR AUTHOR'S ORGANIZ ATION 06/08/2023 [facility] dical Specialists EPIC Reason for Visit (unrecogniz ed section and content) Reason Comments Scheduled Induction Cytotec Induction Status Reason Specialty Diagnoses / Procedures Referre d By Contact Referred To Contact Diagnoses Encounter for induction of labor Term Nash Mera, SAEID - CNM [address] [place] [address] [facility] Reason Comments Muscle Aches Ordered Prescriptions [...] 50 mL IVPB (COMPLETED) 900 mg, IntraVENous, SALES ACCOUNT LEADER TO O.R., 1 dose, On Thu02/13/21 at 1745, Administer within 1 hour prior to incision., Labor and Delivery (Signed and Held) 173 (New Bag - Provider: Claudine Benavides RN)1835 (Stopped - Provider: Marlene Ceballos RN - Comment: stopped on previous shift) docusate sodium (COLACE) capsule 100 mg 100 mg, Oral, 2 TIMES DAILY, First dose on Thu02/13/21 at 2100, Do not crush or break., 2100 (Due) 926 (Given - Provider: Claudine Benavides, RN)195 (Given - Provider: Deja Villalobos, RN) 0740 (Given - Provider: Lila Mcintosh, RN)2099 (Due) enoxaparin (LOVENOX) injection 40 mg 40 [...] 1734 (Given - Provider: Claudine Benavides, HALLE) ibuprofen (ADVIL;MOTRIN) tablet 800 mg 800 mg, Oral, EVERY 8 HOURS, First dose on Megan 02/14/21 at 2000, Do not start till 6 hours after last dose of toradol. Do not crush or break., Post-op 0040 (Given - Provider: Deja Villalobos, HALLE)0400 (Due)1257 (Given - Provider: Lila Mcintosh, HALLE)1999 (Due) ketorolac (TORADOL) injection 30 mg (COMPLETED) 30 mg, IntraVENous, EVERY 6 HOURS, First dose on Megan 02/14/21 at 0100, For 4 doses, Do not administer for more than 5 days., 0037 (Given - Provider: Marlene Ceballos, HALLE)0637 (Given - Provider: Bobbi Devi RN)1236 (Given - Provider: Claudine Benavides, HALLE)195 (Given - Provider: Deja Villalobos, HALLE) metoclopramide [...] (Due) 0900 (Due)2100 (Due) 0900 (Due)2100 (Due) Rlrlqgw-Sqedqd-Nfigx Pertussis (BOOSTRIX) injection 0.5 mL 0.5 mL, IntraMUSCular, PRIOR TO DISCHARGE, Starting on Thu02/13/21 at 1949, For 1 dose, If not previously administered during at 27-36 weeks as recommended by CDC., Continuous Medication Order 02/13/2021 02/14/2021 02/15/2021 lactated ringers infusion (CANCELED) IntraVENous, at 125 mL/hr, CONTINUOUS, Starting on Thu02/12/21 at 1545, Labor and Delivery 0952 (New Bag - Provider: Adela Alvarado, RN)1550 (New Bag - Provider: Claudine Benavides, HALLE)1606 (Rate/Dose Change - Provider: Adela Alvarado RN)1644 (Rate/Dose Change - Provider: Claudine Benavides, HALLE)1730 (Rate/Dose Change - Provider: Claudine Benavides, HALLE) lactated ringers infusion (CANCELED) IntraVENous, at 125 mL/hr, CONTINUOUS, Starting on Thu02/13/21 at 1745, Labor and Delivery (Signed and Held) 1805 (New Bag - Provider: Luther Silvestre APRN - STRIKE OUT MACHINE OPERATOR)191 (Anesthesia Volume Adjustment - Provider: SAEID Sheppard CRNA) lactated ringers infusion IntraVENous, at 125 mL/hr, CONTINUOUS, Starting on Thu02/13/21 at 2015, 0055 (New Bag - Provider: Marlene Ceballos, RN)0903 (New Bag - Provider: María Vitale, RN) oxytocin (PITOCIN) 30 units in 500 mL [...] every 2-3 minutes with cervical changes or Herlong units (MVU) greater than 200 in a [...] IntraMUSCular, PRN, bleeding, Starting on Thu02/13/21 at 194, May repeat every 15 minutes up to [...] LPN) 455 (See Alternative - Provider: Inna Joseph RN) oxyCODONE-acetaminophen (PERCOCET) 5-325 MG per tablet 2 [...] of Care 2002 (New Bag - Provider: Praomd Lantigua, RN - Comment: done per HALLE [...] Hernandez LPN) 0803 (Given - Provider: Lila Mcintosh, HALLE) sodium chloride flush 0.9 % injection 10 [...] Pain Moderate (4-6), Starting on Thu02/13/21 at 1949
Maximum dose [...] or prosecute any alcohol or drug abuse patient.[facility] FOR RECORDS PERTAINING TO PATIENTS WHO ARE [...] BE BASED ON THE PRIMARY CLINICAL RECORDS. [employer] [facility]. provides no warranty or guarantee of the accuracy or completeness of information in this document.
[2023-06-12] MEDS: 0.9 % SODIUM CHLORIDE 1,000 ML 1000 ML IV (21:26)
[2023-06-12 21:38] LABS: Basophils Percent Auto 0.4 % (0.2-2.0); Eosinophils Absolute Auto 0.1 10^3/uL (0.0-0.7); Eosinophils Percent Auto 1.6 % (0.9-7.0); Hemoglobin 12.8 g/dL (12.0-16.0); Immature Granulocytes Abs Auto 0.02 10^3/uL (0.00-0.03); Immature Granulocytes Pct Auto 0.3 % (0.0-0.5); Lymphocytes Absolute Auto 1.9 10^3/uL (1.2-3.8); Mean Corpuscular HGB Conc 32.8 g/dL (29.9-35.2); Mean Corpuscular Hemoglobin 30.8 pg (26.7-34.0); Mean Corpuscular Volume 93.8 fL (81.0-99.0); Mean Platelet Volume 10.3 fL (9.5-13.5); Monocytes Absolute Auto 0.3 10^3/uL (0.3-0.8); Monocytes Percent Auto 3.6 % (1.7-12.0); Neutrophils Absolute Auto 5.1 10^3/uL (1.4-6.5); Neutrophils Percent Auto 69.1 % (43.0-75.0); Platelet Count 268 10^3/uL (150-450); Red Blood Count 4.16 10^6/uL (4.20-5.40); Red Cell Distribution Width 12.1 % (11.0-15.0); White Blood Count 7.4 10^3/uL (4.0-11.0)
[2023-06-12 21:51] LABS: Anion Gap 9.6; BUN Creatinine Ratio 12.1; Calcium 9.3 mg/dL (8.5-10.1); Carbon Dioxide 24.7 mmol/L (21.0-32.0); Chloride 102 mmol/L (98-107); Estimated GFR (African America >60 (>=60); Estimated GFR (Non-African Ame >60 (>=60); Glucose 116 mg/dL (74-106); Potassium 3.3 mmol/L (3.5-5.1); Sodium 133 mmol/L (136-145)
[2023-06-12 22:27] VITALS: BP 110/69; PULSE 85; O2SAT 99
== END 2023-06-12 22:29 | disposition home or self-care (01) ==
PROVIDERS: Emergency Provider Emergency Medicine
DX: O26.891 Other specified pregnancy related conditions, first trimester (principal); R11.2 Nausea with vomiting, unspecified; O99.331 Smoking (tobacco) complicating pregnancy, first trimester; F17.210 Nicotine dependence, cigarettes, uncomplicated; Z3A.11 11 weeks gestation of pregnancy
CPT/HCPCS: 36415; 80048; 85025; 96360; 99284

== ENCOUNTER 2023-10-16 16:05 | Outpatient (OUT) | payer OTHER, SELFPAY ==
--- NOTE | 2023-10-16 16:10 | US_ITS ---
The [address] [address] Patient Name: JOVON LOPEZ MRN: [id number] date: 1995 Sex: F Assigned Patient Location: Current Patient Location: Accession/Order Number: [id number] Exam Date: 10/16/2023 16:30 Report Date: 10/17/2023 06:22 At the request of: NASH VO Procedure: US OB growth EXAMINATION: US OB growth HISTORY: related condition in the third trimester O26.93 COMPARISON: No relevant comparison available. FINDINGS: Heart Rate: 140.6 bpm Number: 1.0 Position: Cephalic Amniotic Fluid Volume: 16.0 cm Maximum Vertical Pocket: 5.5 cm BIOMETRY: BPD: 7.3 cm cm; 29 weeks 3 days; 49% HC: 27.1 cmcm; 29 weeks 4 days; 29% AC: 25.6 cm cm; 29 weeks 5 days; 64% FL: 5.6 cm cm; 29 weeks 2 days; 38% EFW: 1417.6 grams; 53% FL/AC: 21.7 FL/BPD: 75.6 HC/AC: 1.1 GESTATIONAL AGE: Age by EDC: 29 weeks 1 days ALEXANDRA by EDC: 12/31/2023 Age by US: 29 weeks 4 days ALEXANDRA by US: 12/28/2023 US/US OB growth IMPRESSION: 1. Single live intrauterine with growth detailed above. Electronically authenticated by: SUYAPA CRAMER Date: 10/17/2023 06:22
== END 2023-10-16 16:06 | disposition home or self-care (01) ==
LOC: US 16:05
PROVIDERS: Visit Provider Midwife
DX: O26.93 Pregnancy related conditions, unspecified, third trimester (principal); Z3A.29 29 weeks gestation of pregnancy
CPT/HCPCS: 76816

== ENCOUNTER 2023-12-10 12:23 | Observation (INO) | payer OTHER, SELFPAY ==
--- OUTSIDE RECORDS SUMMARY | 2023-12-10 12:27 | XMS_ITS | CCD ---
Author Organization [facility] Care Team Providers Care Whizzer Hand Name Role Phone BRIGITTE BA Marvel Attending Unavailable Unavailable Primary Care Provider UnavailNASH Mortensen Attending Unavailable FLORO, NASH Admitting Unavailable SELF, REFERRED Referring Unavailable SELF, REFERRED Primary Care Unavailable GONZALEZ POWELL Attending Unavailable GONZALEZ POWELL Admitting Unavailable NO FAMILY, PHYSICIAN Primary Care Provider DO Reggie Delacruz Emergency Provider Unavailable Primary Care Provider UnavailIKE [place] Primary Care Unavailable GONZALEZ POWELL Attending Unavailable REQUEST, NONE LISTED Primary Care Unavaila marcelina Mccray, HILDA Attending Unavailable JOSELO ., HILDA Admitting Unavailable DI .ROSS Consulting Unavailable JOSELO Mccray, HILDA Consulting Unavailable DR JAYNE NONE LISTED Primary Care Unavaillori ESPINOZA, DR GODWIN Naranjo Attending Unavailable BAUDILIO, DR GODWIN Naranjo Consulting Unavailable BAUDILIO, DR GODWIN Naranjo Admitting Unavailable RAFA KAPLAN Consulting Unavailable Luis Leung Unavailable NO FAMILY, PHYSICIAN Primary Care Unavailable Howie Plata Jr Attending Unavailable Howie Plata Jr Admitting Unavailable FLORO, NASH L Attending Unavailable FLORO, NASH L Attending Unavailable FLORO, NASH L Attending Unavailable FLORO, NASH L Referring Unavailable FLORO, NASH L Attending Unavailable FLORO, NASH L Attending Unavailable FLORO, NASH L Attending Unavailable FLORO, NASH L Referring Unavailable FLORO, NASH L Attending Unavailable FLORO, NASH L Attending Unavailable FLORO, NASH L Attending Unavailable FLORO, NASH L Attending Unavailable FLORO, NASH L Attending Unavailable Allergies Allergy Classification Reported Allergen(s) Allergy Type Date of Onset Reaction(s) Facility (4 sources) Penicillins; Translations: [PENICILLINS] Propensity to adverse reactions to drug 9 Other (See Comments) [employer] (4 sources) Morphine; Translations: [MORPHINE] Drug Allergy 1 Hives [facility] Repository (2 sources) Penicillin Drug Allergy 0 [facility] Repository (3 sources) Morphine Drug Allergy 2 Hives [facility] (1 source) Penicillins Propensity to adverse reactions to drug 9 Unknown [facility] (1 source) Morphine Drug Allergy 1 [facility] Repository (2 sources) [facility] Other (1 source) Amoxicillin Drug Allergy 4 [facility] Repository (1 source) Morphine Drug Allergy 4 [facility] Repository (1 source) Penicillins Drug allergy (disorder) 3 [facility] Repository Medications Current Medications Medication Drug [...] mg docusate sodium 50 mg / sennosides, intermediate 8.6 mg oral tablet (1 source) Start: [...] 12:00am 2 ml ondansetron 2 mg/ml injection (3 sources) Serotonin-3 Receptor Antagonist Start: 02-13-2021 ondansetron (ZOFRAN) injection 4 mg Zofran pump Acti ve pantoprazole 40 mg delayed release oral tablet (2 sources) Proton Pump Inhibitor Start: 05-17-2022 take 1 tablet by mouth once daily Pantoprazole (Protonix) 40 mg tablet,delayed release (DR/EC) Active 40 MG PO Daily 14 May 17, 2022 12:00am Comment on above: Take 40 mg by mouth once daily. (2 sources) Active Vit-Fe Fumarate-FA ( VITAMINS PO) (1 source) Vit-Fe Fumarate-FA ( VITAMINS PO) Take by mouth 0 Active vitamin 27-1 MG tablet 1 tablet (1 source) Start: 02-13-2021 vitam in 27-1 MG tablet 1 tablet simethicone 80 mg chewable tablet (1 source) Start: 02-13-2021 simethicone (MYLICON) chewable tablet 80 mg 3 ml sodium chloride 9 mg/ml injection (3 sources) Start: 02-13-2021 0.9 % sodium chloride infusion Start: 02-13-2021 sodium chlorid e flush 0.9 % injection 10 mL Stool Softener (2 sources) Stool Softener Active sucralfate 1000 mg oral tablet (1 source) [...] mL 2 ml famotidine 10 mg/ml injection (3 sources) Histamine-2 Receptor Antagonist Start: 02-13-2021 End: 02-13-2021 famotidine (PEPCID) injection 20 mg Famotidine Activ e 2 ml gentamicin 40 mg/ml injection (1 [...] Active Problems Problem Classification Problem Date Documented Da te Episodic/Chronic Abdominal pain (9 sources) Epigastric pain; Translations: [Epigastric pain] Onset: 2 05-17-2022 Episodic distress and abnormal forces of labor (2 sources) Liveborn with labor distress; Translations: [Labor and delivery complicated by stress, unspecified] Episodic Intestinal infection (1 source) Acute gastroenteropathy due to [place] agent; Translations: [ACUTE GASTROENTROPATHY NORWALK AGNT] Onset: 3 Episodic Nausea and vomiting (7 sources) Nausea with vomiting, unspecified; Translations: [Nausea] Onset: 2 Episodic Other gastrointestinal disorders (1 source) Diarrhea, unspecified Episodic Other nutritional; endocrine; and metabolic disorders (1 source) Abnormal weight loss Episodic Other and delivery including normal (4 sources) Patient encounter status; Translations: [Encounter for supervision of normal , unspecified, unspecified trimester] Onset: 1 Episodic Substance-related disorders (2 sources) Cannabis use, unspecified, uncomplicated; Translations: [Cannabis use, unspecified, uncomplicated] Onset: 2 Episodic Past or Other Problems Problem Classification Problem Date Documented Da te Episodic/Chronic Residual codes; unclassified (1 source) Acquired absence of other specified parts of digestive tract; Translations: [ACQ ABSENCE OTH PART DIGESTV TRACT] Onset: 05-06-2022 Episodic Results Test Name Value Interpretation Reference Range Facility US OB 14+ WEEKS ANATOMY SCAN on 08-14-2023 US OB 14+ WEEKS ANATOMY SCAN FINDINGS: Single live intrauterine . heart rate 156 bpm. Somatic movement identified. Cephalic position. Grade 0 posterior placenta. LATRELL 14.64 cm. Cervical length not imaged secondary to maternal habitus. Lateral ventricles, posterior fossa, four-chamber heart, diaphragm, stomach, kidneys, three-vessel cord and cord insertion, urinary bladder, long bones, cervical, thoracic, and lumbar spine identified. Estimated sonographic gestational age 20 weeks, 0 days. Gestational age by dates, is 20 weeks, 1 day. Sonographic estimated date of delivery January 01, 2024. Estimated weight 330 g (40.9%, by LMP percentile). BPD 4.67 cm. AC 14.85 cm. HC 17.54 cm. FL 3.22 cm. IMPRESSION: Impression: Single live intrauterine with estimated sonographic gestational age 20 weeks, 0 days. Estimated weight 330 g. ELECTRONICALLY SIGNED BY: Dallin Patel MD Normal Not Available US OB < 14 WEEKS EARLYon US OB < 14 WEEKS EARLY FINDINGS: Uterus measures 5.4 x 5.6 x 4.8 cm and contains a well-defined gestational sac surrounded by a well-defined decidual reaction. Within the gestational sac is a single live intrauterine , with heart rate of 126 bpm. [place]-rump length measures 0.95 cm, yielding an estimated [...] Available HCG,Quantitativeon 3 HCG,Quantitative 25.40 m[iU]/mL Normal [facility] Comment on above: Result Comment: Appr oximate Approximate hCG Gestational Age Range (mIU/ml) (weeks) 0.2-1 5-50 1-2 50-500 2-3 100-5,000 3-4 500-10,000 4-5 1,000-50,000 5-6 10,000-100,000 6-8 15,000-200,000 8-12 10,000-100,000 PERFORMED BY: [place] [address] PATHOLOGIST [employer] ARJUN HASTINGS M.D. Performed By: #### H CGQNT #### [facility] [address] [place], [place] [id number] [place] HCG,Urineon 04-21-2023 Beta HCG ( test) Ql (U) Negative Normal [facility] Comment on above: Order Comment: Name Collection Type:: Clean-Voided Midstream Result Comment: PERF ORMED BY: [place] [address] PATHOLOGIST [employer] ARJUN HASTINGS M.D. Performed By: #### U A, UHCG #### [facility] [address] [place], [place] [id number] [place] Urinalysison 04-21-2023 Appearance (U) Clear Normal Clear [facility] Comment on above: Order Comment: Name Collection Type:: Clean-Voided Midstream Performed By: #### U A, UHCG #### [facility] [address] [place], [place] [id number] [place] Bilirubin,Urine Negative Normal Negative [facility] Comment on above: Order Comment: Name Collection Type:: Clean-Voided Midstream Performed By: #### U A, UHCG #### [place] [id number] [place] Color (U) Yellow Normal Yellow [facility] Comment on above: Order Comment: Name Collection Type:: Clean-Voided Midstream Performed By: #### U A, UHCG #### [facility] [address] [place], [place] [id number] [place] Glucose Ql (U) Normal Normal Normal [facility] Comment on above: Order Comment: Name Collection Type:: Clean-Voided Midstream Performed By: #### U A, UHCG #### [address] Ketones Ql (U) Negative Normal Negative [facility] Comment on above: Order Comment: Name Collection Type:: Clean-Voided Midstream Performed By: #### U A, UHCG #### [address] Leukocyte esterase Test strip Ql (U) Negative Normal Negative [facility] Comment on above: Order Comment: Name Collection Type:: Clean-Voided Midstream Performed By: #### U A, UHCG #### [address] Nitrite,Urine Negative Normal Negative [facility] Comment on above: Order Comment: Name Collection Type:: Clean-Voided Midstream Performed By: #### U A, UHCG #### [address] Occult Blood,Urine Negative Normal Negative [facility] Comment on above: Order Comment: Name Collection Type:: Clean-Voided Midstream Performed By: #### U A, UHCG #### [address] pH (U) 7.5 [pH] Normal 5.0-9.0 [facility] Comment on above: Order Comment: Name Collection Type:: Clean-Voided Midstream Performed By: #### U A, UHCG #### [address] Protein,Urine Negative Normal Negative [facility] Comment on above: Order Comment: Name Collection Type:: Clean-Voided Midstream Performed By: #### U A, UHCG #### [address] Specificy [place],Urine 1.011 Normal 1.001-1.030 [facility] Comment on above: Order Comment: Name Collection Type:: Clean-Voided Midstream Performed By: #### U A, UHCG #### [facility] [address] Urobilinogen,Urine Normal Normal Normal [facility] Comment on above: Order Comment: Name Collection Type:: Clean-Voided Midstream Performed By: #### U A, [facility] [place] #### [facility] [address] [place] [id number] [facility] AMYLASEon 10-19-2022 Amylase [Catalytic activity/Vol] 42 U/L Normal 25-115 [facility] Comment on above: Performed By: #### L IPA, ROSS, CMP #### [facility] [address] [address] [address] Radha Garcia CBC AUTO DIFFon 10-19-2022 BASO # 0.0 103/ul Normal 0.0-0.1 [facility] Comment on above: Performed By: #### C BC #### [facility] [address] [address] [address] Radha Garcia Basophils/100 WBC (Bld) 0.4 % Normal 0.2-2.0 [facility] Comment on above: Performed By: #### C BC #### [facility] [address] [address] [address] Radha Garcia EO # 0.1 103/ul Normal 0.0-0.7 [facility] Comment on above: Performed By: #### C BC #### [facility] [address] [address] [address] Radha Garcia Eosinophils/100 WBC (Bld) 2.9 % Normal 0.9-7.0 [facility] Comment on above: Performed By: #### C BC #### [facility] [address] [address] [address] Radha Garcia Erythrocyte distribution width (RBC) [Ratio] 12.6 % Normal 11.0-15.0 [facility] Comment on above: Performed By: #### C BC #### [facility] [address] [place] [address] Dr. Radha Garcia Hematocrit (Bld) [Volume fraction] 41.9 % Normal 36.0-48.0 [facility] Comment on above: Performed By: #### C BC #### [facility] [address] [address] [address] Radha Garcia Hemoglobin (Bld) [Mass/Vol] 13.8 g/dL Normal 12.0-16.0 [facility] Comment on above: Performed By: #### C BC #### [facility] [address] [address] [address] Radha Garcia IG # 0.01 10e3/ul Normal 0.00-0.03 [facility] Comment on above: Performed By: #### C BC #### [facility] [address] [place] [address] Dr. Radha Garcia IG % 0.2 % Normal 0.0-0.5 [facility] Comment on above: Performed By: #### C BC #### [facility] [address] [place] [address] Dr. Radha Garcia LYMPH # 1.2 103/ul Normal 1.2-3.8 [facility] Comment on above: Performed By: #### C BC #### [facility] [address] [place] [address] Dr. Radha Garcia Lymphocytes/100 WBC (Bld) 25.6 % Normal 20.5-60.0 [facility] Comment on above: Performed By: #### C BC #### [facility] [address] [place] [address] Dr. Radha Garcia MANUAL DIFF REQ NO Normal [facility] Comment on above: Performed By: #### C BC #### [facility] [address] [place] [address] Dr. Radha Garcia MCH (RBC) [Entitic mass] 29.9 pg Normal 26.7-34.0 [facility] Comment on above: Performed By: #### C BC #### [facility] [address] [place] [address] Dr. Radha Garcia MCHC (RBC) [Mass/Vol] 32.9 g/dL Normal 29.9-35.2 [facility] Comment on above: Performed By: #### C BC #### [facility] [address] [address] [address] Radha Garcia MCV (RBC) [Entitic vol] 90.9 fL Normal 81.0-99.0 [facility] Comment on above: Performed By: #### C BC #### [facility] [address] [address] [address] Radha Garcia MONO # 0.3 103/ul Normal 0.3-0.8 [facility] Comment on above: Performed By: #### C BC #### [facility] [address] [place] [address] Dr. Radha Garcia Monocytes/100 WBC (Bld) 6.5 % Normal 1.7-12.0 [facility] Comment on above: Performed By: #### C BC #### [facility] [address] [place] [address] Dr. Radha aGrcia NEUT # 2.9 103/ul Normal 1.4-6.5 [facility] Comment on above: Performed By: #### C BC #### [facility] [address] [place] [address] Dr. Radha Garcia Neutrophils/100 WBC (Bld) 64.4 % Normal 43.0-75.0 [facility] Comment on above: Performed By: #### C BC #### [facility] [address] [place] [address] Dr. Radha Garcia Platelet mean volume (Bld) [Entitic vol] 10.6 fL Normal 9.5-13.5 [facility] Comment on above: Performed By: #### C BC #### [facility] [address] [place] [address] Dr. Radha Garcia PLT 246 103/ul Normal 150-450 [facility] Comment on above: Performed By: #### C BC #### [facility] [address] [place] [address] Dr. Radha Garcia RBC 4.61 106/ul Normal 4.20-5.40 [facility] Comment on above: Performed By: #### C BC #### [facility] [address] [address] [address] Radha Garcia WBC 4.5 103/ul Normal 4.0-11.0 [facility] Comment on above: Performed By: #### C BC #### [facility] [address] [place] [address] Dr. Radha Garcia GI PANEL (PCR)on 10-19-2022 Adenovirus F 40/41 Not detected Normal NOT DETECTED [facility] Comment on above: Performed By: #### G IPANEL #### [facility] [address] [place] [address] Dr. Radha Garcia Astrovirus Not detected Normal NOT DETECTED [facility] Comment on above: Performed By: #### G IPANEL #### [facility] [address] [place] [address] Dr. Radha Pike. Diff toxin A/B Not detected Normal NOT DETECTED [facility] Comment on above: Performed By: #### G IPANEL #### [facility] [address] [place] [address] Dr. Radha Garcia Campylobacter Not detected Normal NOT DETECTED [facility] Comment on above: Performed By: #### G IPANEL #### [facility] [address] [place] [address] Dr. Radha Garcia Cryptosporidium Not detected Normal NOT DETECTED [facility] Comment on above: Performed By: #### G IPANEL #### [facility] [address] [place] [address] Dr. Radha Garcia Cyclos. Cayetanensis Not detected Normal NOT DETECTED [facility] Comment on above: Performed By: #### G IPANEL #### [facility] [address] [place] [address] Dr. Radha Garcia E. Coli O157 Not Applicable Normal Not Applicable [facility] Comment on above: Performed By: #### G IPANEL #### [facility] [address] [place] [address] Dr. Radha Garcia E. histolytica Not detected Normal NOT DETECTED The [facility] Comment on above: Performed By: #### G IPANEL #### [facility] [address] [place] [address] Dr. Radha Garcia EAEC Not detected Normal NOT DETECTED [facility] Comment on above: Performed By: #### G IPANEL #### [facility] [address] [place] [address] Dr. Radha Garcia EIEC Not detected Normal NOT DETECTED [facility] Comment on above: Performed By: #### G IPANEL #### [facility] [address] [place] [address] Dr. Radha Garcia EPEC Not detected Normal NOT DETECTED [facility] Comment on above: Performed By: #### G IPANEL #### [facility] [address] [place] [address] Dr. Radha Garcia ETEC Not detected Normal NOT DETECTED [facility] Comment on above: Performed By: #### G IPANEL #### [facility] [address] [place] [address] Dr. Radha Valdez Lamblia Not detected Normal NOT DETECTED [facility] Comment on above: Performed By: #### G IPANEL #### [facility] [address] [place] [address] Dr. Radha SANTAAN CONTROLS PASSED Normal [facility] Comment on above: Performed By: #### G IPANEL #### [facility] [address] [place] [address] Dr. Radha MALIK GALI HEADER GI PANEL BACTERIA Normal T [facility] Comment on above: Performed By: #### G IPANEL #### [facility] [address] [place] [address] Dr. Radha LOUIS ECOLI GI PANEL DIARRHEAGENIC E.COLI / SHIGELLA Normal [facility] Comment on above: Performed By: #### G IPANEL #### [facility] [address] [place] [address] Dr. Radha LOUIS INFO SEE BELOW Normal [facility] Comment on above: Result Comment: EAEC - Enteroaggregative E. Coli EPEC- Enteropathogenic E. Coli ETEC- Enterotoxigenic E. Coli lt/st STEC- Shigella-like toxin-producing E. Coli stx1/stx2 EIEC- Shigella/Enteroinvasive E. Coli Performed By: #### G IPANEL #### [facility] [address] [place] [address] Dr. Radha LOUIS PARASITES GI PANEL PARASITES Normal [facility] Comment on above: Performed By: #### G IPANEL #### [facility] [address] [address] [address] Radha LOUIS VIRUS GI PANEL VIRUSES Normal [facility] Comment on above: Performed By: #### G IPANEL #### [facility] [address] [place] [address] Dr. Radha Garcia Norovirus GI/GII Detected Abnormal NOT DETECTED [facility] Comment on above: Performed By: #### G IPANEL #### [facility] [address] [place] [address] Dr. Radha Garcia P. Shigelloides Not detected Normal NOT DETECTED [facility] Comment on above: Performed By: #### G IPANEL #### [facility] [address] [place] [address] Dr. Radha Garcia Rotavirus A Not detected Normal NOT DETECTED [facility] Comment on above: Performed By: #### G IPANEL #### [facility] [address] [place] [address] Dr. Radha Garcia Salmonella Not detected Normal NOT DETECTED [facility] Comment on above: Performed By: #### G IPANEL #### [facility] [address] [place] [address] Dr. Radha Garcia Sapovirus Not detected Normal NOT DETECTED [facility] Comment on above: Performed By: #### G IPANEL #### [facility] [address] [address] [address] Radha Garcai STEC Not detected Normal NOT DETECTED [facility] Comment on above: Performed By: #### G IPANEL #### [facility] [address] [place] [address] Dr. Radha Garcia Vibrio Not detected Normal NOT DETECTED [facility] Comment on above: Performed By: #### G IPANEL #### [facility] [address] [place] [address] Dr. Radha Garcia Vibrio Cholera Not detected Normal NOT DETECTED [facility] Comment on above: Performed By: #### G IPANEL #### [facility] [address] [place] [address] Dr. Radha Garcia Y. Enterocolitica Not detected Normal NOT DETECTED [facility] Comment on above: Performed By: #### G IPANEL #### [facility] [address] [place] [address] Dr. Radha Garcia LIPASEon 10-19-2022 Lipase [Catalytic activity/Vol] 54.0 U/L Critically low 73.0-393.0 [facility] Comment on above: Performed By: #### L SAMUEL ROSS, CMP #### [facility] [address] [place] [address] Dr. Radha Garcia PROF 14(COMP METB)on 023 Albumin [Mass/Vol] 3.3 g/dL Critically low 3.4-5.0 [facility] Comment on above: Performed By: #### L IPA ROSS, CMP #### [facility] [address] [place] [address] Dr. Radha Garcia Albumin/Globulin [Mass ratio] 1.0 {ratio} Normal [facility] Comment on above: Performed By: #### L IPA ROSS, CMP #### [facility] [address] [place] [address] Dr. Radha Garcia ALP [Catalytic activity/Vol] 58 U/L Normal 46-116 [facility] Comment on above: Performed By: #### L IPA ROSS, CMP #### [facility] [address] [place] [address] Dr. Radha Garcia ALT [Catalytic activity/Vol] 25 U/L Normal 14-59 [facility] Comment on above: Performed By: #### L IPA, ROSS, CMP #### [facility] [address] [place] [address] Dr. Radha Garcia Anion gap [Moles/Vol] 14.5 mmol/L Normal [facility] Comment on above: Performed By: #### L IPA ROSS, CMP #### [facility] [address] [address] [address] Radha Garcia AST [Catalytic activity/Vol] 19 U/L Normal 15-37 [facility] Comment on above: Performed By: #### L IPA, ROSS, CMP #### [facility] [address] [place] [address] Dr. Radha Garcia Bilirubin [Mass/Vol] 0.8 mg/dL Normal 0.2-1.0 [facility] Comment on above: Performed By: #### L IPA ROSS, CMP #### [facility] Laboratory [address] [address] [address] Radha Garcia Calcium [Mass/Vol] 8.4 mg/dL Critically low 8.5-10.1 Th e [facility] Comment on above: Performed By: #### L IPA ROSS, CMP #### [facility] Laboratory [address] [place] [address] Dr. Radha Garcia Chloride [Moles/Vol] 107 mmol/L Normal 98-107 [facility] Comment on above: Performed By: #### L IPA ROSS, CMP #### [facility] Laboratory [address] [place] [address] Dr. Radha Garcia CO2 [Moles/Vol] 25.8 mmol/L Normal 21.0-32.0 [facility] Comment on above: Performed By: #### L IPA ROSS, CMP #### [facility] Laboratory [address] [place] [address] Dr. Radha Garcia Creatinine [Mass/Vol] 0.78 mg/dL Normal 0.55-1.02 [facility] Comment on above: Performed By: #### L IPA ROSS, CMP #### [facility] Laboratory [address] [place] [address] Dr. Radha Garcia EGFR-AF GUATEMALAN >60 Normal >=60 [facility] Comment on above: Performed By: #### L IPA, ROSS, CMP #### [facility] Laboratory [address] [place] [address] Dr. Radha Garcia EGFR-NON AF GUATEMALAN >60 Normal >=60 [facility] Comment on above: Performed By: #### L ROSS BAKER, CMP #### [facility] Laboratory [address] [address] [address] Radha Garcia Globulin (S) [Mass/Vol] 3.2 g/dL Normal T [facility] Comment on above: Performed By: #### L ROSS BAKER, CMP #### [facility] Laboratory [address] [place] [address] Dr. Radha Garcia Glucose [Mass/Vol] 96 mg/dL Normal 74-[address] [facility] Comment on above: Performed By: #### L ROSS BAKER, CMP #### [facility] Laboratory [address] [place] [address] Dr. Radha Garcia Potassium [Moles/Vol] 3.3 mmol/L Critically low 3.5-5.1 [facility] Comment on above: Performed By: #### L ROSS BAKER, CMP #### [facility] Laboratory [address] [place] [address] Dr. Rahda Garcia Protein [Mass/Vol] 6.5 g/dL Normal 6.4-8.[address] [facility] Comment on above: Performed By: #### L ROSS BAKER, CMP #### [facility] Laboratory [address] [place] [address] Dr. Radha Garcia Sodium [Moles/Vol] 144 mmol/L Normal 136-[address] [facility] Comment on above: Performed By: #### L ROSS BAKER, CMP #### [facility] Laboratory [address] [place] [address] Dr. Radha Garcia Urea nitrogen [Mass/Vol] 6.0 mg/dL Critically low 7.0-18.0 [facility] Comment on above: Performed By: #### L ROSS BAKER, CMP #### [facility] Laboratory [address] [place] [address] Dr. Radha Garcia Urea nitrogen/Creatinine [Mass ratio] 7.7 mg/mg Normal [facility] Comment on above: Performed By: #### L ROSS BAKER, CMP #### [facility] Laboratory [address] [place] [address] Dr. Radha Garcia 36on 07-16-2022 36 Attempted to call an d schedule an EGD, but mail box is full unable to leave a message. Will mail her a letter. Normal [facility] 36on 06-06-2022 36 ----- Message from Mary Jo Javier MA sent at 05/26/2022 10:02 AM EST ----- For your review! Normal [facility] BETA HCG, QUANTITATIVE FOR E Don 05-25-2022 HCG.beta subunit Qn m[IU]/mL Normal <5.0 [facility] Comment on above: Order Comment: Speci men Type: BLOOD SPECIMEN Ordering Facility: [facility] Address: [address] [place] [address] Result Comment: Neglori wright Performed By: #### 2 4323-8, 3040-3, HCGED, 12903-6 #### [facility] CLIA [id number] [address] [place] [address] [place] CBC W Auto Differential pane l (Bld)on 05-25-2022 Basophils (Bld) [#/Vol] 10*3/uL Normal <0.11 [facility] Comment on above: Order Comment: Speci men Type: BLOOD SPECIMEN Ordering Facility: [facility] Address: [address] [place] [address] Performed By: #### 5 7021-8 #### [facility] CLIA [id number] [address] [place] [address] [place] Basophils/100 WBC (Bld) 0.1 % Normal [facility] Comment on above: Order Comment: Speci men Type: BLOOD SPECIMEN Ordering Facility: [facility] Address: [address] [address] Performed By: #### 5 7021-8 #### [facility] CLIA [id number] [address] [place] Differential cell count method Nom (Bld) Auto Normal [facility] Comment on above: Order Comment: Speci men Type: BLOOD SPECIMEN Ordering Facility: [facility] Address: [address] [address] Performed By: #### 5 7021-8 #### [facility] [place] [id number] [address] [place] [address] [place] Eosinophils (Bld) [#/Vol] 0.08 10*3/uL Normal <0.46 [facility] Comment on above: Order Comment: Speci men Type: BLOOD SPECIMEN Ordering Facility: [facility] Address: [address] [address] Performed By: #### 5 7021-8 #### [facility] IA [id number] [address] [place] [address] [facility] [place] Eosinophils/100 WBC (Bld) 1.0 % Normal [facility] Comment on above: Order Comment: Speci men Type: BLOOD SPECIMEN Ordering Facility: [facility] Address: [address] [address] Performed By: #### 5 7021-8 #### [facility] [place] [id number] [address] [place] [address] [place] Erythrocyte distribution width (RBC) [Ratio] 12.4 % Normal 11.5-15.0 [facility] Comment on above: Order Comment: Speci men Type: BLOOD SPECIMEN Ordering Facility: [facility] Address: [address] [address] Performed By: #### 5 7021-8 #### [facility] IA [id number] [address] [place] [address] [place] Hematocrit (Bld) [Volume fraction] 43.0 % Normal 36.0-46.0 [facility] Comment on above: Order Comment: Speci men Type: BLOOD SPECIMEN Ordering Facility: [facility] Address: [address] [address] Performed By: #### 5 7021-8 #### [facility] IA [id number] [address] [place] [address] [place] Hemoglobin (Bld) [Mass/Vol] 14.2 g/dL Normal 11.5-15.5 [facility] Comment on above: Order Comment: Speci men Type: BLOOD SPECIMEN Ordering Facility: [facility] Address: [address] [address] Performed By: #### 5 7021-8 #### [facility] CLIA [id number] [address] [place] [address] [place] Immature granulocytes (Bld) [#/Vol] 10*3/uL Normal <0.10 [facility] Comment on above: Order Comment: Speci men Type: BLOOD SPECIMEN Ordering Facility: [facility] Address: [address] [address] Performed By: #### 5 7021-8 #### [facility] IA [id number] [address] [place] [address] [place] Immature granulocytes/100 WBC (Bld) 0.2 % Normal [facility] Comment on above: Order Comment: Speci men Type: BLOOD SPECIMEN Ordering Facility: [facility] Address: [address] [address] Performed By: #### 5 7021-8 #### [facility] IA [id number] [address] [place] [address] [place] Lymphocytes (Bld) [#/Vol] 0.30 10*3/uL Low 1.00-4.00 [facility] Comment on above: Order Comment: Speci men Type: BLOOD SPECIMEN Ordering Facility: [facility] Address: [address] Performed By: #### 5 7021-8 #### [facility] CLIA [id number] [address] [place] [address] [place] Lymphocytes/100 WBC (Bld) 3.6 % Normal [facility] Comment on above: Order Comment: Speci men Type: BLOOD SPECIMEN Ordering Facility: [facility] Address: [address] [address] Performed By: #### 5 7021-8 #### [facility] CLIA [id number] [address] MCH (RBC) [Entitic mass] 28.7 pg Normal 26.0-34.0 [facility] Comment on above: Order Comment: Speci men Type: BLOOD SPECIMEN Ordering Facility: [facility] Address: [address] [address] Performed By: #### 5 7021-8 #### [facility] IA [id number] [address] [place] MCHC (RBC) [Mass/Vol] 33.0 g/dL Normal 30.5-36.0 [facility] Comment on above: Order Comment: Speci men Type: BLOOD SPECIMEN Ordering Facility: [facility] Address: [address] [address] Performed By: #### 5 7021-8 #### [facility] IA [id number] [address] [place] [address] OF [facility] MCV (RBC) [Entitic vol] 86.9 fL Normal 80.0-100.0 [facility] Comment on above: Order Comment: Speci men Type: BLOOD SPECIMEN Ordering Facility: [facility] Address: [address] [address] Performed By: #### 5 7021-8 #### [facility] IA [id number] [address] [place] [address] OF [facility] Monocytes (Bld) [#/Vol] 0.19 10*3/uL Normal <0.87 [facility] Comment on above: Order Comment: Speci men Type: BLOOD SPECIMEN Ordering Facility: [facility] Address: [address] [address] Performed By: #### 5 7021-8 #### [facility] IA [id number] [address] [place] [address] Monocytes/100 WBC (Bld) 2.3 % Normal [facility] Comment on above: Order Comment: Speci men Type: BLOOD SPECIMEN Ordering Facility: [facility] Address: [address] [address] Performed By: #### 5 7021-8 #### [facility] CLIA [id number] [address] [place] [address] [place] Neutrophils (Bld) [#/Vol] 7.62 10*3/uL High 1.45-7.50 [facility] Comment on above: Order Comment: Speci men Type: BLOOD SPECIMEN Ordering Facility: [facility] Address: [address] [address] Performed By: #### 5 7021-8 #### [facility] CLIA [id number] [address] [place] [address] [place] Neutrophils/100 WBC (Bld) 92.8 % Normal [facility] Comment on above: Order Comment: Speci men Type: BLOOD SPECIMEN Ordering Facility: [facility] Address: [address] [address] Performed By: #### 5 7021-8 #### [facility] IA [id number] [address] [place] [address] [place] Nucleated RBC (Bld) [#/Vol] 10*3/uL Normal <0.01 [facility] Comment on above: Order Comment: Speci men Type: BLOOD SPECIMEN Ordering Facility: [facility] Address: [address] [place] [address] Performed By: #### 5 7021-8 #### [facility] IA [id number] [address] [place] [address] [place] Nucleated RBC/100 WBC (Bld) [Ratio] 0.0 /100 WBC Normal [facility] Comment on above: Order Comment: Speci men Type: BLOOD SPECIMEN Ordering Facility: [facility] Address: [address] [place] [address] Performed By: #### 5 7021-8 #### [facility] IA [id number] [address] [place] [address] [place] Platelet mean volume (Bld) [Entitic vol] 10.5 fL Normal 9.0-12.7 [facility] Comment on above: Order Comment: Speci men Type: BLOOD SPECIMEN Ordering Facility: [facility] Address: [address] [address] Performed By: #### 5 7021-8 #### [facility] IA [id number] [address] [place] [address] [place] Platelets (Bld) [#/Vol] 264 10*3/uL Normal 150-400 [facility] Comment on above: Order Comment: Speci men Type: BLOOD SPECIMEN Ordering Facility: [facility] Address: [address] [address] Performed By: #### 5 7021-8 #### [facility] CLIA [id number] [address] [place] [address] [place] RBC (Bld) [#/Vol] 4.95 10*6/uL Normal 3.90-5.20 [facility] Comment on above: Order Comment: Speci men Type: BLOOD SPECIMEN Ordering Facility: [facility] Address: [address] [address] Performed By: #### 5 7021-8 #### [facility] IA [id number] [address] [place] [address] [place] WBC (Bld) [#/Vol] 8.22 10*3/uL Normal 3.70-11.00 [facility] Comment on above: Order Comment: Speci men Type: BLOOD SPECIMEN Ordering Facility: [facility] Address: [address] [address] Performed By: #### 5 7021-8 #### [facility] CLIA [id number] [address] [place] [address] [facility] [place] Comprehensive metabolic 2000 panelon 05-25-2022 Albumin [Mass/Vol] 4.3 g/dL Normal 3.9-4.9 [facility] Comment on above: Order Comment: Speci men Type: BLOOD SPECIMEN Ordering Facility: [facility] Address: [address] [place] [address] Performed By: #### 2 4323-8, 3040-3, HCGED, #### [facility] CLIA [id number] [address] [place] [address] [place] ALP [Catalytic activity/Vol] 74 U/L Normal 34-123 [facility] Comment on above: Order Comment: Speci men Type: BLOOD SPECIMEN Ordering Facility: [facility] Address: [address] [place] [address] Performed By: #### 2 4323-8, 3040-3, HCGED, #### [facility] CLIA [id number] [address] [place] [address] [place] ALT [Catalytic activity/Vol] 23 U/L Normal 7-38 [facility] Comment on above: Order Comment: Speci men Type: BLOOD SPECIMEN Ordering Facility: [facility] Address: [address] [place] [address] Performed By: #### 2 4323-8, 3040-3, HCGED, #### [facility] CLIA [id number] [address] [place] [address] [place] Anion gap [Moles/Vol] 12 mmol/L Normal 9-18 [facility] Comment on above: Order Comment: Speci men Type: BLOOD SPECIMEN Ordering Facility: [facility] Address: [address] [place] [address] Performed By: #### 2 4323-8, 3040-3, HCGED, #### [facility] CLIA [id number] [address] [place] [address] [place] AST [Catalytic activity/Vol] 15 U/L Normal 13-35 [facility] Comment on above: Order Comment: Speci men Type: BLOOD SPECIMEN Ordering Facility: [facility] Address: [address] [place] [address] Performed By: #### 2 4323-8, 3040-3, HCGED, 60069-3 #### [facility] CLIA [id number] [address] [place] [address] [place] Bilirubin [Mass/Vol] 1.0 mg/dL Normal 0.2-1.3 [facility] Comment on above: Order Comment: Speci men Type: BLOOD SPECIMEN Ordering Facility: [facility] Address: [address] [place] [address] Performed By: #### 2 4323-8, 3040-3, HCGED, #### [facility] CLIA [id number] [address] [place] [address] [place] Calcium [Mass/Vol] 8.8 mg/dL Normal 8.5-10.2 [facility] Comment on above: Order Comment: Speci men Type: BLOOD SPECIMEN Ordering Facility: [facility] Address: [address] [place] [address] Performed By: #### 2 4323-8, 0-3, HCGED, #### [facility] CLIA [id number] [address] [place] [address] [place] Chloride [Moles/Vol] 107 mmol/L High 97-105 [facility] Comment on above: Order Comment: Speci men Type: BLOOD SPECIMEN Ordering Facility: [facility] Address: [address] [place] [address] Performed By: #### 2 4323-8, 3039-3, HCGED, #### [facility] CLIA [id number] [address] [place] [address] [place] CO2 [Moles/Vol] 22 mmol/L Normal 22-30 [facility] Comment on above: Order Comment: Speci men Type: BLOOD SPECIMEN Ordering Facility: [facility] Address: [address] [place], [place] [address] Performed By: #### 2 4323-8, 3040-3, HCGED, #### [facility] CLIA [id number] [address] [place] [address] [place] Creatinine [Mass/Vol] 0.70 mg/dL Normal 0.58-0.96 [facility] Comment on above: Order Comment: Speci men Type: BLOOD SPECIMEN Ordering Facility: [facility] Address: [address] [id number] Performed By: #### 2 4323-8, 3040-3, [facility], 20301-4 #### [facility] CLIA [id number] [address] [place] [address] [place] ESTIMATED GLOMERULAR FILTRATION RATE 123 mL/min/1.73m??? Normal >=60 [facility] Comment on above: Order Comment: Tad vu Type: BLOOD SPECIMEN Ordering Facility: [facility] Address: [address] [place], [place] [address] Result Comment: Hazel mated Glomerular Filtration Rate [...] GFR. Performed By: #### 2 4323-8, 3040-3, [facility], [address]-9 #### [facility] CLIA [id number] [address] [facility] [place] [address] [place] Glucose [Mass/Vol] 97 mg/dL Normal 74-99 [facility] Comment on above: Order Comment: Tad vu Type: BLOOD SPECIMEN Ordering Facility: [facility] Address: [address] [place] [address] Result Comment: The [place] [employer] (ADA) provides guidance for cutoff [...] Standards of Medical Care in Diabetes 2016, [place] [employer]. Diabetes Care. 2016.39(Suppl 1). Performed By: #### 2 4323-8, 3040-3, HCGED, #### [facility] CLIA [id number] [address] [place] [address] [place] Potassium [Moles/Vol] 3.9 mmol/L Normal 3.7-5.1 [facility] Comment on above: Order Comment: Speci men Type: BLOOD SPECIMEN Ordering Facility: [facility] Address: [address] [place] [address] Performed By: #### 2 4323-8, 3040-3, HCGED, #### [facility] CLIA [id number] [address] [place] [address] [place] Protein [Mass/Vol] 6.9 g/dL Normal 6.3-8.0 [facility] Comment on above: Order Comment: Speci men Type: BLOOD SPECIMEN Ordering Facility: [facility] Address: [address] [place] [address] Performed By: #### 2 4323-8, 3040-3, HCGED, #### [facility] CLIA [id number] [address] [place] [address] [place] Sodium [Moles/Vol] 141 mmol/L Normal 136-144 [facility] Comment on above: Order Comment: Speci men Type: BLOOD SPECIMEN Ordering Facility: [facility] Address: [address] [place] [address] Performed By: #### 2 4323-8, 3040-3, HCGED, #### [facility] CLIA [id number] [address] [place] [address] [place] Urea nitrogen [Mass/Vol] 13 mg/dL Normal 7-21 [facility] Comment on above: Order Comment: Speci men Type: BLOOD SPECIMEN Ordering Facility: [facility] Address: [address] [place] [address] Performed By: #### 2 4323-8, 3040-3, HCGED, 90206-2 #### [facility] CLIA [id number] [address] [facility] [place] [address] [place] ECG COMPLETEon 05-25-2022 ECG COMPLETE Ventricular Rate : 9 1 BPM Atrial Rate : 92 BPM P-R Interval : 150 ms QRS Duration : 85 ms Q-T Interval : 341 ms QTC Calculation(Bazett) : 420 ms Calculated P [place] : 33 degrees Calculated R [place] : 21 degrees Calculated T [place] : 24 degrees Sinus rhythm Low voltage, precordial leads Otherwise Normal ECG *SEE EPIC NOTE FOR INTERPRETATION Confirmed by KHADAR LUNA MD ([id number]), industrial editor BE TORRES ([id number]) on 05/26/2022 1:50:52 PM NAME : JOVON LOPEZ PID : [id number] : 1995 Gender : Female Race : ORD : [id number] Procedure Date : May 24 2022 23:05:41 Edit Date : May 26 2022 13:50:57 Diagnosis: Sinus rhythm Low voltage, precordial leads Otherwise Normal ECG *SEE EPIC NOTE FOR INTERPRETATION Confirmed by KHADAR LUNA MD ([id number]), industrial editor BE TORRES ([id number]) on 05/26/2022 1:50:52 PM Test Reason : Chest Pain Location : 302 : ED AVED-16 Overread By : KHADAR LUNA MD Edited By : BE TORRES Referred By : , Acquired by : [id number], [facility] ED NOTEon 05-25-2022 ED NOTE HNO ID: [id number] Author: Diamond Plata RN Service: Nursing Author [...] ED in no acute distress. DIAMOND PLATA [facility] [phone] [facility] ED PROV NOTEon 05-25-2022 ED PROV NOTE HNO ID: [id number] Author: Khadar Luna DO Service: Emergency Medicine [...] which was unremarkable. She followed up with piano teacher yesterday, was told that her symptoms may [...] / Clinical Impression ED Course as of 05/24/223 Khadar Luna's Documentation Sat May 24, 20227 EKG normal sinus rhythm, rate 91, no axis deviation, no interval prolongation, no acute ischemic changes 2315 Patient reevaluated, states she is feeling significantly better. Heart rate is improved. Clinical Impr (more content not included)... Normal [facility] Lipase SerPl-cCncon 05-25-20 Lipase [Catalytic activity/Vol] 15 U/L Low 16-61 [facility] Comment on above: Order Comment: Speci men Type: BLOOD SPECIMEN Ordering Facility: [facility] Address: [address] [place] [address] Performed By: #### 2 4323-8, 3040-3, HCGED, 76306-5 #### [facility] CLIA [id number] [address] [place] [address] [place] Magnesium SerPl-mCncon 05-25 Magnesium [Mass/Vol] 1.9 mg/dL Normal 1.7-2.3 [facility] Comment on above: Order Comment: Speci men Type: BLOOD SPECIMEN Ordering Facility: [facility] Address: [address] [place] [address] Performed By: #### 2 4323-8, 3040-3, HCGED, #### [facility] CLIA [id number] [address] [place] [address] [place] Urinalysis complete panel (U )on 05-25-2022 Bilirubin Ql (U) Negative Normal Negative [facility] Comment on above: Order Comment: Speci men Type: URINE SPECIMEN Ordering Facility: [facility] Address: [address] [place] [address] Performed By: #### 2 4356-8 #### [facility] CLIA [id number] [address] [place] [address] [place] Clarity (Unsp spec) Clear Normal Clear [facility] Comment on above: Order Comment: Speci men Type: URINE SPECIMEN Ordering Facility: [facility] Address: [address] [place] [address] Performed By: #### 2 4356-8 #### [facility] CLIA [id number] [address] [place] [address] [place] Color (U) Yellow Normal Yellow [facility] Comment on above: Order Comment: Speci men Type: URINE SPECIMEN Ordering Facility: [facility] Address: [address] [address] Performed By: #### 2 4356-8 #### [facility] IA [id number] [address] [place] [address] [place] Epithelial cells LM.HPF (Urine sed) [#/Area] Few Normal [facility] Comment on above: Order Comment: Speci men Type: URINE SPECIMEN Ordering Facility: [facility] Address: [address] [place] [address] Performed By: #### 2 4356-8 #### [facility] IA [id number] [address] [place] [address] [place] Glucose Test strip (U) [Mass/Vol] Negative Normal Negative [facility] Comment on above: Order Comment: Speci men Type: URINE SPECIMEN Ordering Facility: [facility] Address: [address] [place] [address] Performed By: #### 2 4356-8 #### [facility] IA [id number] [address] [place] [address] [place] Hemoglobin Ql (U) Negative Normal Negative [facility] Comment on above: Order Comment: Speci men Type: URINE SPECIMEN Ordering Facility: [facility] Address: [address] [place] [address] Performed By: #### 2 4356-8 #### [facility] [place] [id number] [address] [place] [address] [place] Ketones Ql (U) 3+ Abnormal Trace, Negative [facility] Comment on above: Order Comment: Speci men Type: URINE SPECIMEN Ordering Facility: [facility] Address: [address] [place] [address] Performed By: #### 2 4356-8 #### [facility] [place] [id number] [address] [place] [address] [place] Leukocyte esterase Test strip Ql (U) 1+ Abnormal Negative [facility] Comment on above: Order Comment: Speci men Type: URINE SPECIMEN Ordering Facility: [facility] Address: [address] [address] Performed By: #### 2 4356-8 #### [facility] [place] [id number] [address] [place] [address] [place] Nitrite Ql (U) Negative Normal Negative [facility] Comment on above: Order Comment: Speci men Type: URINE SPECIMEN Ordering Facility: [facility] Address: [address] [address] Performed By: #### 2 4356-8 #### [facility] [place] [id number] [address] [place] [address] [place] pH (U) 5.5 [pH] Normal 5.0-8.0 [facility] Comment on above: Order Comment: Speci men Type: URINE SPECIMEN Ordering Facility: [facility] Address: [address] [address] Performed By: #### 2 4356-8 #### [facility] [id number] [address] [place] [address] [place] Protein (U) [Mass/Vol] Trace Normal Trace , Negative [facility] Comment on above: Order Comment: Speci men Type: URINE SPECIMEN Ordering Facility: [facility] Address: [address] [place] [address] Performed By: #### 2 4356-8 #### [facility] [place] [id number] [address] [place] [address] [place] RBC LM.HPF (Urine sed) [#/Area] 0-3 /HPF Normal 0-3 /HPF [facility] Comment on above: Order Comment: Speci men Type: URINE SPECIMEN Ordering Facility: [facility] Address: [address] [place] [address] Performed By: #### 2 4356-8 #### [facility] [place] [id number] [address] [place] [address] [place] Specific gravity (U) [Rel density] 1.026 Normal 1.005-1.030 [facility] Comment on above: Order Comment: Speci men Type: URINE SPECIMEN Ordering Facility: [facility] Address: [address] [address] Performed By: #### 2 4356-8 #### [facility] CLIA [id number] [address] [place] [address] [facility] [place] Urobilinogen Ql (U) 0.2 EU/dL Normal 0.2-1.0 EU/dL [facility] Comment on above: Order Comment: Speci men Type: URINE SPECIMEN Ordering Facility: [facility] Address: [address] [place] [address] Performed By: #### 2 4356-8 #### [facility] CLIA [id number] [address] [place] [address] [place] WBC LM.HPF (Urine sed) [#/Area] 6-10 /HPF Abnormal 0-5 /HPF [facility] Comment on above: Order Comment: Speci men Type: URINE SPECIMEN Ordering Facility: [facility] Address: [address] [place] [address] Performed By: #### 2 4356-8 #### [facility] [place] [id number] [place] ED NOTEon 05-24-2022 ED NOTE HNO ID: [id number] Author: Gabby Barone RN Service: ? Author Type: Registered Nurse Type: ED Notes Filed: 05/24/2022 9:23 PM Note Text: Patient presents with nausea, vomiting, diarrhea, and centralized abdominal pain for about 5 months. States she has lost about 45 pounds and is unable to eat or drink without pain. GABBY BARONE [facility] [phone] Normal [facility] Office Visiton 05-23-2022 Follow-up visit [id number] Jovon Lopez 1995 F Date Provider Department Center 05/23/2022 GONZALEZ PUCKETT UTCF GI UTCF No family history on file Level of Service:55747 [place] OFFICE/OUTPATIENT ESTABLISHED MOD MDM 30-39 MIN () Reason for Visit and Comments: New Patient [632] Fatigue [46] - Had gallbladder removed in 03/2021, Dr. Powell found and fixed leak 04/2021, pt is having major problems with eating and drinking. Was referred back in 2020 Normal [facility] Automated erythrocytes count in urine sediment (number/area)Ordered By: Reggie Maynard on 05-17-2022 RBC Auto (Urine sed) [#/Area] 5-9 [HPF] 0-4 [facility] Automated leukocytes count i n urine sediment (number/area)Ordered By: Reggie Maynard on 05-17-2022 WBC Auto (Urine sed) [#/Area] 50-100 [HPF] 0-4 [facility] Basophils Auto (Bld) [#/Vol] Ordered By: Reggie Maynard on 05-17-2022 Basophils (Bld) [#/Vol] 0.1 10*3/uL 0.0-0.2 [facility] Basophils/100 WBC Auto (Bld) Ordered By: Reggie Maynard on 05-17-2022 Basophils/100 WBC (Bld) 0.7 % . [facility] Bilirubin Test strip Ql (U)O rdered By: Reggie Maynard on 05-17-2022 Bilirubin Ql (U) Negative Negative [facility] Body fluid albumin measureme nt (mass/volume)Ordered By: Reggie Maynard on 05-17-2022 Albumin (Body fld) [Mass/Vol] 3.8 g/dL 3.2-5.5 [facility] Color Auto (U)Ordered By: Hadley Maynard on 05-17-2022 Color (U) Yellow Yellow [facility] Creatinine and Glomerular fi ltration rate.predicted panel (S/P/Bld)Ordered By: Reggie Maynard on 05-17-2022 Creatinine [Mass/Vol] 0.64 mg/dL 0.44-1.03 [facility] Direct bilirubin measurement Ordered By: Reggie Maynard on 05-17-2022 Bilirubin.direct [Mass/Vol] 0.1 mg/dL 0.0-0.4 [facility] Eosinophils Auto (Bld) [#/Vo l]Ordered By: Reggie Maynard on 05-17-2022 Eosinophils (Bld) [#/Vol] 0.3 10*3/uL 0.0-0.45 [facility] Eosinophils/100 WBC Auto (Bl d)Ordered By: Reggie Maynard on 05-17-2022 Eosinophils/100 WBC (Bld) 4.2 % . [facility] Erythrocyte distribution wid th Auto (RBC) [Ratio]Ordered By: Reggie Maynard on 05-17-2022 Erythrocyte distribution width (RBC) [Ratio] 13.0 % 11.9-15.3 [facility] Estimated glomerular filtrat ion rate (GFR) non- AmericanOrdered By: Reggie Maynard on 05-17-2022 GFR/1.73 sq M.predicted among non-blacks MDRD (S/P/Bld) [Vol rate/Area] > 60 mL/Min [facility] Globulin Calc (S) [Mass/Vol] Ordered By: Reggie Maynard on 05-17-2022 Globulin (S) [Mass/Vol] 3.3 g/dL [facility] HCG ( test) IA.rapi d Ql (U)Ordered By: Reggie Maynard on 05-17-2022 HCG ( test) Ql (U) Negative [facility] Hematocrit Auto (Bld) [Volum e fraction]Ordered By: Reggie Maynard on 05-17-2022 Hematocrit (Bld) [Volume fraction] 42.9 % 34.0-46.4 [facility] Hemoglobin [Mass/volume] in BloodOrdered By: Reggie Maynard on 05-17-2022 Hemoglobin (Bld) [Mass/Vol] 14.5 g/dL 11.8-15.4 [facility] Ketones Auto test strip (U) [Mass/Vol]Ordered By: Reggie Maynard on 05-17-2022 Ketones (U) [Mass/Vol] Negative Negative [facility] and C hemistry - challengeOrdered By: Reggie Maynard on 05-17-2022 Lipase [Catalytic activity/Vol] 30.0 U/L 22-51 [facility] - UrinalysisOrder ed By: Reggie Maynard on 05-17-2022 Hyaline casts LM Ql (Urine sed) 0-8 [LPF] 0-8 [facility] Leukocytes [#/volume] correc gema for nucleated erythrocytes in Blood by Automated counOrdered By: Reggie Maynard on 05-17-2022 WBC corrected for nucl RBC Auto (Bld) [#/Vol] 7.0 10*3/uL 3.8-11.6 [facility] Lymphocytes Auto (Bld) [#/Vo l]Ordered By: Reggie Maynard on 05-17-2022 Lymphocytes (Bld) [#/Vol] 1.4 10*3/uL 1.00-4.8 [facility] Lymphocytes/100 WBC Auto (Bl d)Ordered By: Reggie Maynard on 05-17-2022 Lymphocytes/100 WBC (Bld) 20.4 % . [facility] MCH Auto (RBC) [Entitic mass ]Ordered By: Reggie Maynard on 05-17-2022 MCH (RBC) [Entitic mass] 29.6 pg 24.7-34.3 [facility] MCHC Auto (RBC) [Mass/Vol]Or dered By: Reggie Maynard on 05-17-2022 MCHC (RBC) [Mass/Vol] 33.7 g/dL 32.0-35.0 [facility] MCV Auto (RBC) [Entitic vol] Ordered By: Reggie Maynard on 05-17-2022 MCV (RBC) [Entitic vol] 87.9 fL 80-100 [facility] Monocyte distribution width [Entitic volume] in Blood by AutomatedOrdered By: Reggie Maynard on 05-17-2022 Monocyte distribution width Auto (Bld) [Entitic vol] 17.93 % 0.00-20.00 [facility] Monocytes Auto (Bld) [#/Vol] Ordered By: Reggie Maynard on 05-17-2022 Monocytes (Bld) [#/Vol] 0.3 10*3/uL 0.0-0.8 [facility] Monocytes/100 WBC Auto (Bld) Ordered By: Reggie Maynard on 05-17-2022 Monocytes/100 WBC (Bld) 4.1 % . [facility] Mucus LM Ql (Urine sed)Order ed By: Reggie Maynard on 05-17-2022 Mucus Ql (Urine sed) 2+ [LPF] [facility] Neutrophils Auto (Bld) [#/Vo l]Ordered By: Reggie Maynard on 05-17-2022 Neutrophils (Bld) [#/Vol] 4.9 10*3/uL 1.8-7.7 [facility] Neutrophils/100 WBC Auto (Bl d)Ordered By: Reggie Maynard on 05-17-2022 Neutrophils/100 WBC (Bld) 70.6 % . [facility] Nitrite Test strip Ql (U)Ord ered By: Reggie Maynard on 05-17-2022 Nitrite Ql (U) Negative Negative [facility] No Panel InformationOrdered By: Reggie Maynard on 05-17-2022 Estimated GFR () > 60 mL/Min [facility] Comment on above: GFR estimated refere nce range: According to KDOQI guidelines, <60 ml/min/1.73m2 is sufficient to diagnose a patient with chronic kidney disease. Pharmacy Creatinine Clearance (Chem 111.16 [facility] Nucleated erythrocytes [Pres ence] in Blood by Automated countOrdered By: Reggie Maynard on 05-17-2022 Nucleated RBC Auto Ql (Bld) 0.2 /100{WBC} 0-0.5 [facility] Platelet mean volume Auto (B ld) [Entitic vol]Ordered By: Reggie Maynard on 05-17-2022 Platelet mean volume (Bld) [Entitic vol] 8.7 fL 6.3-10.7 [facility] Platelets Auto (Bld) [#/Vol] Ordered By: Reggie Maynard on 05-17-2022 Platelets (Bld) [#/Vol] 323 10*3/uL 150-450 [facility] Protein Auto test strip (U) [Mass/Vol]Ordered By: Reggie Maynard on 05-17-2022 Protein (U) [Mass/Vol] Negative Negative [facility] Protein [Mass/volume] in Ser um or PlasmaOrdered By: Reggie Maynard on 05-17-2022 Protein [Mass/Vol] 7.1 g/dL 6.1-7.9 [facility] RBC Auto (Bld) [#/Vol]Ordere d By: Reggie Maynard on 05-17-2022 RBC (Bld) [#/Vol] 4.88 10*6/uL 3.60-5.00 [facility] Serum or plasma alanine rangel otransferase measurement without P-5'-P (enzymatic activiOrdered By: Reggie Maynard on 05-17-2022 ALT No additional P-5'-P [Catalytic activity/Vol] 22 U/L 10-60 [facility] Serum or plasma albumin/glob ulin mass ratioOrdered By: Reggie Maynard on 05-17-2022 Albumin/Globulin [Mass ratio] 1.2 {ratio} [facility] Serum or plasma alkaline ely sphatase measurement (enzymatic activity/volume)Ordered By: Reggie Maynard on 05-17-2022 ALP [Catalytic activity/Vol] 56 U/L 32-92 [facility] Serum or plasma anion gap de terminationOrdered By: Reggie Maynard on 05-17-2022 Anion gap [Moles/Vol] 14.6 mmol/L 6.0-15.0 [facility] Serum or plasma aspartate am inotransferase measurement (enzymatic activity/volume)Ordered By: Reggie Maynard on 05-17-2022 AST [Catalytic activity/Vol] 16 U/L 10-42 [facility] Serum or plasma calcium bryon urement (mass/volume)Ordered By: Reggie Maynard on 05-17-2022 Calcium [Mass/Vol] 8.9 mg/dL 8.2-10.2 [facility] Serum or plasma chloride jamir surement (moles/volume)Ordered By: Reggie Maynard on 05-17-2022 Chloride [Moles/Vol] 106 mmol/L 95-114 [facility] Serum or plasma glucose bryon urement (mass/volume)Ordered By: Reggie Maynard on 05-17-2022 Glucose [Mass/Vol] 94 mg/dL 70-100 [facility] Comment on above: ADA recommended refe rence rangeRandom Glucose Reference Range is dependent on time and content of last meal. Glucose of more than 200 mg/dL in a nonstressed, ambulatory subject supports the diagnosis of Diabetes Mellitus. Serum or plasma non-glucuron idated bilirubin measurement (mass/volume)Ordered By: Reggie Maynard on 05-17-2022 Bilirubin.indirect [Mass/Vol] 0.7 mg/dL [facility] Serum or plasma potassium me asurement (moles/volume)Ordered By: Reggie Maynard on 05-17-2022 Potassium [Moles/Vol] 4.3 mmol/L 3.5-5.1 [facility] Serum or plasma sodium measu rement (moles/volume)Ordered By: Reggie Maynard on 05-17-2022 Sodium [Moles/Vol] 138 mmol/L 136-146 [facility] Serum or plasma total biliru bin measurement (mass/volume)Ordered By: Reggie Maynard on 05-17-2022 Bilirubin [Mass/Vol] 0.8 mg/dL 0.3-1.2 [facility] Serum or plasma total carbon dioxide measurement (moles/volume)Ordered By: Reggie Maynard on 05-17-2022 CO2 [Moles/Vol] 21.7 mmol/L 22.0-30.0 [facility] Serum or plasma urea nitroge n measurement (mass/volume)Ordered By: Reggie Maynard 05-17-2022 Urea nitrogen [Mass/Vol] 15 mg/dL 9-23 [facility] Specific gravity Auto test s trip (U) [Rel density]Ordered By: Reggie Maynard 05-17-2022 Specific gravity (U) [Rel density] 1.028 1.001-1.030 [facility] Squamous epithelial cells de tection in urine sediment by light microscopyOrdered By: Reggie Maynard on 05-17-2022 Epithelial cells.squamous LM Ql (Urine sed) 3-4 [HPF] 0-2 [facility] Urine bacteria detection by automated methodOrdered By: Reggie Maynard on 05-17-2022 Bacteria Auto Ql (U) None seen None Seen [facility] Urine clarity by refractomet ry automatedOrdered By: Reggie Maynard on 05-17-2022 Clarity Refractometry automated (U) Clear Clear [facility] Urine glucose measurement by automated test strip (mass/volume)Ordered By: Reggie Maynard on 05-17-2022 Glucose Auto test strip (U) [Mass/Vol] Normal mg/dL Normal [facility] Urine hemoglobin detection b y automated test stripOrdered By: Reggielisa Maynard on 05-17-2022 Hemoglobin Auto test strip Ql (U) Negative Negative [facility] Urine leukocyte esterase det ection by automated test stripOrdered By: Reggie Aleyda on 05-17-2022 Leukocyte esterase Auto test strip Ql (U) 3+ Negative [facility] Urine sediment renal epithel ial cell count by microscopy (number/high power field)Ordered By: Reggie Maynard on 05-17-2022 Epithelial cells.renal LM.HPF (Urine sed) [#/Area] None seen [HPF] 0-1 [facility] Urobilinogen Auto test strip (U) [Mass/Vol]Ordered By: Reggie Maynard on 05-17-2022 Urobilinogen (U) [Mass/Vol] Normal mg/dL Normal [facility] WBC Auto (Bld) [#/Vol]Ordere d By: Reggie Maynard on 05-17-2022 WBC (Bld) [#/Vol] 7.0 10*3/uL 3.8-11.6 [facility] pH Auto test strip (U)Ordere d By: Reggie Maynard on 05-17-2022 pH (U) 5.5 [pH] 5.0-9.0 [facility] AMYLASEon 05-01-2022 Amylase [Catalytic activity/Vol] 61 U/L Normal 25-115 [facility] Comment on above: Performed By: #### L IPA, CMP, ROSS #### [facility] [address] [address] [address] Radha Garcia CBC AUTO DIFFon 05-01-2022 BASO # 0.0 103/ul Normal 0.0-0.1 [facility] Comment on above: Performed By: #### C BC #### [facility] [address] [address] [address] Radha Garcia Basophils/100 WBC (Bld) 0.4 % Normal 0.2-2.0 [facility] Comment on above: Performed By: #### C BC #### [facility] [address] [place] [address] Dr. Radha Garcia EO # 0.2 103/ul Normal 0.0-0.7 [facility] Comment on above: Performed By: #### C BC #### [facility] [address] [place] [address] Dr. Radha Garcia Eosinophils/100 WBC (Bld) 3.0 % Normal 0.9-7.0 [facility] Comment on above: Performed By: #### C BC #### [facility] [address] [place] [address] Dr. Radha Garcia Erythrocyte distribution width (RBC) [Ratio] 12.4 % Normal 11.0-15.0 [facility] Comment on above: Performed By: #### C BC #### [facility] [address] [place] [address] Dr. Radha Garcia Hematocrit (Bld) [Volume fraction] 40.5 % Normal 36.0-48.0 [facility] Comment on above: Performed By: #### C BC #### [facility] [address] [place] [address] Dr. Radha Garcia Hemoglobin (Bld) [Mass/Vol] 13.7 g/dL Normal 12.0-16.0 [facility] Comment on above: Performed By: #### C BC #### [facility] [address] [place] [address] Dr. Radha Garcia IG # 0.01 10e3/ul Normal 0.00-0.03 [facility] Comment on above: Performed By: #### C BC #### [facility] [address] [place] [address] Dr. Radha Garcia IG % 0.1 % Normal 0.0-0.5 [facility] Comment on above: Performed By: #### C BC #### [facility] [address] [place] [address] Dr. Radha Garcia LYMPH # 2.1 103/ul Normal 1.2-3.8 [facility] Comment on above: Performed By: #### C BC #### [facility] [address] [place] [address] Dr. Radha Garcia Lymphocytes/100 WBC (Bld) 30.7 % Normal 20.5-60.0 [facility] Comment on above: Performed By: #### C BC #### [facility] [address] [place] [address] Dr. Radha Garcia MANUAL DIFF REQ NO Normal [facility] Comment on above: Performed By: #### C BC #### [facility] [address] [place] [address] Dr. Radha Garcia MCH (RBC) [Entitic mass] 29.9 pg Normal 26.7-34.0 [facility] Comment on above: Performed By: #### C BC #### [facility] [address] [place] [address] Dr. Radha Garcia MCHC (RBC) [Mass/Vol] 33.8 g/dL Normal 29.9-35.2 [facility] Comment on above: Performed By: #### C BC #### [facility] [address] [place] [address] Dr. Radha Garcia MCV (RBC) [Entitic vol] 88.4 fL Normal 81.0-99.0 [facility] Comment on above: Performed By: #### C BC #### [facility] [address] [place] [address] Dr. Radha Garcia MONO # 0.5 103/ul Normal 0.3-0.8 [facility] Comment on above: Performed By: #### C BC #### [facility] [address] [place] [address] Dr. Radha Garcia Monocytes/100 WBC (Bld) 6.6 % Normal 1.7-12.0 [facility] Comment on above: Performed By: #### C BC #### [facility] [address] [place] [address] Dr. Radha Garcia NEUT # 4.1 103/ul Normal 1.4-6.5 [facility] Comment on above: Performed By: #### C BC #### [facility] [address] [place] [address] Dr. Radha Garcia Neutrophils/100 WBC (Bld) 59.2 % Normal 43.0-75.0 [facility] Comment on above: Performed By: #### C BC #### [facility] [address] [place] [address] Dr. Radha Garcia Platelet mean volume (Bld) [Entitic vol] 10.6 fL Normal 9.5-13.5 [facility] Comment on above: Performed By: #### C BC #### [facility] [address] [place] [address] Dr. Radha Garcia PLT 263 103/ul Normal 150-450 [facility] Comment on above: Performed By: #### C BC #### [facility] [address] [place] [address] Dr. Radha Garcia RBC 4.58 106/ul Normal 4.20-5.40 [facility] Comment on above: Performed By: #### C BC #### [facility] [address] [place] [address] Dr. Radha Garcia WBC 6.9 103/ul Normal 4.0-11.0 [facility] Comment on above: Performed By: #### C BC #### [facility] [address] [place] [address] ABD/PELV W CONon [...] RAFA KAPLAN Date: 2022-05-01 03:30 Normal [facility] LIPASEon 05-01-2022 Lipase [Catalytic activity/Vol] 63.0 U/L Critically low 73.0-393.0 [facility] Comment on above: Performed By: #### L IPA, CMP, ROSS #### [facility] [address] [address] [address] Radha Garcia PREG HCG QUALon 05-01-2022 , QUAL Negative Normal NEGATIVE [facility] Comment on above: Performed By: #### C BC #### [facility] [address] [place] [address] Dr. Radha Garcia PROF 14(COMP METB)on 05-01- 022 Albumin [Mass/Vol] 3.9 g/dL Normal 3.4-5.[address] [facility] Comment on above: Performed By: #### L IPA, CMP, ROSS #### [facility] [address] [place] [address] Dr. Radha Garcia Albumin/Globulin [Mass ratio] 1.2 {ratio} Normal [facility] Comment on above: Performed By: #### L IPA, CMP, ROSS #### [facility] [address] [place] [address] Dr. Radha Garcia ALP [Catalytic activity/Vol] 73 U/L Normal 46-116 [facility] Comment on above: Performed By: #### L IPA, CMP, ROSS #### [facility] [address] [place] [address] Dr. Radha Garcia ALT [Catalytic activity/Vol] 13 U/L Critically low 14-59 [facility] Comment on above: Performed By: #### L IPA, CMP, ROSS #### [facility] [address] [place] [address] Dr. Radha Garcia Anion gap [Moles/Vol] 9.0 mmol/L Normal [facility] Comment on above: Performed By: #### L IPA, CMP, ROSS #### [facility] [address] [place] [address] Dr. Radha Garcia AST [Catalytic activity/Vol] 12 U/L Critically low 15-37 [facility] Comment on above: Performed By: #### L IPA, CMP, ROSS #### [facility] [address] [place] [address] Dr. Radha Garcia Bilirubin [Mass/Vol] 0.6 mg/dL Normal 0.2-1.0 [facility] Comment on above: Performed By: #### L IPA, CMP, ROSS #### [facility] [address] [place] [address] Dr. Radha Garcia Calcium [Mass/Vol] 8.7 mg/dL Normal 8.5-10.[address] [facility] Comment on above: Performed By: #### L IPA, CMP, ROSS #### [facility] [address] [place] [address] Dr. Radha Garcia Chloride [Moles/Vol] 106 mmol/L Normal 98-107 [facility] Comment on above: Performed By: #### L IPA, CMP, ROSS #### [facility] [address] [place] [address] Dr. Radha Garcia CO2 [Moles/Vol] 26.4 mmol/L Normal 21.0-32.0 [facility] Comment on above: Performed By: #### L IPA, CMP, ROSS #### [facility] [address] [place] [address] Dr. Radha Garcia Creatinine [Mass/Vol] 0.71 mg/dL Normal 0.55-1.02 [facility] Comment on above: Performed By: #### L IPA, CMP, ROSS #### [facility] [address] [place] [address] Dr. Radha Garcia EGFR-AF GUATEMALAN >60 Normal >=60 [facility] Comment on above: Performed By: #### L IPA, CMP, ROSS #### [facility] [address] [place] [address] Dr. Radha Garcia EGFR-NON AF GUATEMALAN >60 Normal >=60 [facility] Comment on above: Performed By: #### L IPA, CMP, ROSS #### [facility] [address] [address] [address] Radha Garcia Globulin (S) [Mass/Vol] 3.3 g/dL Normal [facility] [facility] Comment on above: Performed By: #### L IPA, CMP, ROSS #### [facility] [address] [address] [address] Radha Garcia Glucose [Mass/Vol] 89 mg/dL Normal 74-[address] [facility] Comment on above: Performed By: #### L IPA, CMP, ROSS #### [facility] [address] [address] [address] Radha Garcia Potassium [Moles/Vol] 3.4 mmol/L Critically low 3.5-5.1 [facility] Comment on above: Performed By: #### L IPA, CMP, ROSS #### [facility] [address] [place] [address] Dr. Radha Garcia Protein [Mass/Vol] 7.2 g/dL Normal 6.4-8.[address] [facility] Comment on above: Performed By: #### L IPA, CMP, ROSS #### [facility] [address] [address] [address] Radha Garcia Sodium [Moles/Vol] 138 mmol/L Normal 136-[address] [facility] Comment on above: Performed By: #### L IPA, CMP, ROSS #### [facility] [address] [address] [address] Radha Garcia Urea nitrogen [Mass/Vol] 12.0 mg/dL Normal 7.0-18.0 [facility] Comment on above: Performed By: #### L IPA, CMP, ROSS #### [facility] [address] [address] [address] Radha Garcia Urea nitrogen/Creatinine [Mass ratio] 16.9 mg/mg Normal [facility] Comment on above: Performed By: #### L IPA, CMP, ROSS #### [facility] [address] [address] [address] Radha Garcia Q - DRUG TOX MONITORING CONFIRMATION,URINEon 05-23-2021 Amphetamines Negative Normal <500 [facility] Comment on above: Order Comment: [facility] Testing performed at: [employer], [employer] [facility], [address] [facility], [address] [place] [address], [phone], Return To Factory Clerk: Shamar Colunga MD [facility] Collection Date/Time: [facility] Results Received Date/Time: [facility] Reported Date/Time: FASTING: NO Performed By: #### 9 [id number] #### [facility] Default [address] [place] [address] Barbiturates Negative Normal <300 [facility] Comment on above: Order Comment: [facility] Testing performed at: [employer], [employer] [facility], [address] [facility], [address] [place] [address], [phone], Return To Factory Clerk: Shamar Colunga MD [facility] Collection Date/Time: [facility] Results Received Date/Time: [facility] Reported Date/Time: FASTING: NO Performed By: #### 9 1486 #### [facility] Default [address] [place] [address] Benzodiazepines Negative Normal <100 [facility] Comment on above: Order Comment: [facility] Testing performed at: [employer], [employer] [facility], [address] , [address] [place] [address], [phone], Return To Factory Clerk: Shamar Colunga MD [facility] Collection Date/Time: [facility] Results Received Date/Time: [facility] Reported Date/Time: FASTING: NO Performed By: #### 9 1486 #### [facility] Default [address] [place] [address] Cocaine Metabolite Negative Normal <150 [facility] Comment on above: Order Comment: [facility] Testing performed at: [employer], [employer] [facility], [address] , [address] [place] [address], [phone], Return To Factory Clerk: Shamar Colunga MD [facility] Collection Date/Time: [facility] Results Received Date/Time: [facility] Reported Date/Time: FASTING: NO Performed By: #### 9 1486 #### [facility] Default [address] [place] [address] COMMENT SEE NOTE Normal [facility] Comment on above: Order Comment: [facility] Testing performed at: [facility], [employer] [facility], [address] , [address] [place] [address], [phone], Return To Factory Clerk: Shamar Colunga MD [facility] Collection Date/Time: [facility] Results Received Date/Time: [facility] Reported Date/Time: FASTING: NO Result Comment: See Note 2 Note 1 This test was developed and its analytical performance characteristics have been determined by [employer]. It has not been cleared or approved [...] interpreting these drug results, please contact a [employer] Toxicology Specialist: [phone] ( [phone] M-F, 8am-6pm EST. Performed By: #### 9 [id number] #### [facility] Default [address] [place] [address] Marijuana Metabolite 73 ng/mL High <5 [facility] Comment on above: Order Comment: [facility] performed at: [employer], [employer] [facility], [address] , [address] [place], [address], Return To Factory Clerk: Shamar Colunga MD [facility] Collection Date/Time: [id number] [facility] Results Received Date/Time: [id number] [facility] Reported Date/Time: FASTING: NO Result Comment: See Note 1 Performed By: #### 9 1486 #### [facility] Default [address] [place] [address] Marijuana Metabolite 20 Positive Abnormal <20 [facility] [employer] Work[employer] Comment on above: Order Comment: [facility] Testing performed at: [employer], [employer] [facility], [address] , [address] [place] [address], [address] [place] [address], Return To Factory Clerk: Shamar Colunga MD [facility] Collection Date/Time: [facility] Results Received Date/Time: [facility] Reported Date/Time: FASTING: NO Performed By: #### 9 1486 #### [facility] Default [address] [place] [address] Methadone Metabolite Negative Normal <100 [facility] Comment on above: Order Comment: [facility] Testing performed at: [employer], [employer] [facility], [address] , [address] [place] [address], [address] [place] [address], Return To Factory Clerk: Shamar Colunga MD [facility] Collection Date/Time: [facility] Results Received Date/Time: [facility] Reported Date/Time: FASTING: NO Performed By: #### 9 1486 #### [facility] Default [address] [place] [address] Opiates Negative Normal <100 [facility] Comment on above: Order Comment: [facility] Testing performed at: [employer], [employer] [facility], [address] , [address] [place] [address], [phone], Return To Factory Clerk: Shamar Colunga MD [facility] Collection Date/Time: [facility] Results Received Date/Time: [facility] Reported Date/Time: FASTING: NO Performed By: #### 9 1486 #### [facility] [address] [place] [address] Oxycodone Negative Normal <100 [facility] Comment on above: Order Comment: [facility] Testing performed at: [employer], [employer] [facility], [address] , [address] [place] [address], [phone], Return To Factory Clerk: Shamar Colunga MD [facility] Collection Date/Time: [facility] Results Received Date/Time: [facility] Reported Date/Time: FASTING: NO Performed By: #### 9 1486 #### [facility] Default [address] [place] [address] Phencyclidine Negative Normal <25 [facility] [employer] Worker Comment on above: Order Comment: [facility] Testing performed at: Q, [facility], [address] [facility], [address] [place], [address], Return To Factory Clerk: Shamar Colunga MD [facility] Collection Date/Time: [facility] Results Received Date/Time: [facility] Reported Date/Time: FASTING: NO Performed By: #### 9 1486 #### [facility] Default [address] [place] [address] ERCPon 05-01-2021 ERCP [facility] Department of Radiology [address] [place] [address] Patient Name: JOVON LOPEZ : 1995 Sex: F Age: Race: White Pt. Location: [facility] Patient Status: D Ordered Date: [...] procedure. Electronically signed: Neris Guevara. Transcribed by: [id number], User Resident: Electronically Signed by: NERIS GUEVAAR @ 05/03/2021 08:12 AM Normal [facility] Comment on above: Order Comment: Evalu ate Endoscopy Reporton Endoscopy Report MR#: [id number] [facility] Pt. Name: Jovon Lopez Surgery Date: 05/01/2021 Room #: M7A Date of : 1995 PROCEDURE NOTE ATTENDING: Gonzalez Powell M.D. SPECIAL SERVICES AGENT: Te Bacon MD. (Advanced Endoscopy Gastroenterology Fellow). [...] P/Te Bacon MD Date Trans: 05/01/2021 06:34 P/sandra [id number] Normal [facility] POC SARS COV2 ANTIGEN NEGATI VEon 05-01-2021 POC SARS COV2 ANTIGEN NEG Negative Normal NEGATIVE [facility] Comment on above: Result Comment: Nega tive [...] signs and symptoms consistent with COVID-19. The [employer] COVID-19 Ag Card is a lateral flow [...] Accreditation. Performed By: #### 3 1977 #### [facility] [address] [facility]. [address] POC URINE PREGNANCYon 2020 Beta HCG ( test) Ql (U) Negative Normal NEGATIVE [facility] Comment on above: Result Comment: Perf ormed in PACU Performed By: #### 8 [id number] #### [facility] [address] [facility]. [address] Hemoglobinon 02-14-2021 Hemoglobin (Bld) [Mass/Vol] 11.4 g/dL Low 11.9-15.1 [facility] Comment on above: Performed By: #### H GB #### [facility] [address] [place] [address] [place] [address] Fur Tailor: Ilir Prasad MD HemoglobinOrdered By: Cherelle Mera on 02-14-2021 Hemoglobin.gastrointest inal spec 1 Ql (Stl) 11.4 g/dL Low 11.9 - 15.1 g/dL [facility] [employer] Phone: Interpretation and review of laboratory results Abnormal [facility] Phone: [facility] [employer] Phone: OPERATIVE REPORTon OPERATIVE REPORT [address] [address] OPERATIVE REPORT PATIENT NAME: JOVON LOPEZ : 1995 MED REC NO: [id number] ROOM: 0203 ACCOUNT NO: [id number] ADMIT DATE: 02/12/2021 PROVIDER: Fernando Hooks MD DATE OF PROCEDURE: 02/13/2021 PREOPERATIVE DIAGNOSES: at term, failed induction of labor, and intolerance to labor with late decelerations and brief episodes of bradycardia. SURGICAL PROCEDURE: Primary section, low transverse uterine segment. ANESTHESIA: Spinal. HAIR WORKER: Nash Mera. ESTIMATED BLOOD LOSS: 800 mL. COMPLICATIONS OF THE PROCEDURE: None. FINDINGS: A viable vigorous male in vertex presentation with clear amniotic fluid. [...] then a running imbricating interlocking fashion. A [id number] suture was placed on the right lateral [...] room in good condition. FERNANDO HOOKS MD [id number] Doc#: [id number] CC: Nash Mera [facility] TYPE AND SCREENOrdered By: Rosie Hooks on 02-13-2021 ABO/Rh Positive [facility] Work Phone: Arm Band Number [id number] [facility] Work Phone: Expiration Date 02/16/2021,2357 [facility] Work Phone: [facility] Work Phone: Type + Screenon 02-13-2021 Type + Screen Sample Expiration 02/16/2021,2351 Arm Band Number [id number] ABO/Rh(D) A POSITIVE Antibody Screen NEGATIVE [facility] Comment on above: Performed By: #### T YS #### [facility] [address] [place] [address] [place] [address] Fur Tailor: Ilir Prasad MD CBC auto differentialOrdered By: Nash Mera on 02-12-2021 [facility] Eos # 0.11 [facility] Work Phone: Absolute Immature Granulocyte 0.05 [employer] Work Phone: [facility] Lymph # 1.67 [facility] Work Phone: Absolute [place]idan # 0.44 [facility] Work Phone: Basophils (Bld) [#/Vol] 10*3/uL [employer] Work Phone: Basophils/100 WBC (Bld) 0 % 0 - 2 % [employer] Work Phone: Differential Type NOT REPORTED [employer] Phone: Eosinophils/100 WBC (Bld) 1 % 1 - 4 % [employer] Phone: Hematocrit (Bld) [Volume fraction] 33.3 % Low 36.3 - 47.1 % [employer] Phone: Hemoglobin.gastrointest inal spec 1 Ql (Stl) 10.7 g/dL Low 11.9 - 15.1 g/dL [employer] Phone: Immature granulocytes/100 WBC (Bld) 1 % High 0 [employer] Phone: Interpretation and review of laboratory results Abnormal [employer] Phone: Lymphocytes/100 WBC (Bld) 20 % Low 24 - 43 % [employer] Phone: MCH (RBC) [Entitic mass] 28.5 pg 25.2 - 33.5 pg [employer] Phone: MCHC (RBC) [Mass/Vol] 32.1 g/dL 28.4 - 34.8 g/dL [employer] Phone: MCV (RBC) [Entitic vol] 88.6 fL 82.6 - 102.9 fL [employer] Phone: Monocytes/100 WBC (Bld) 5 % 3 - 12 % [facility] Phone: NRBC Automated 0.0 0.0 per 100 WBC [employer] Phone: Platelet distribution width (Bld) [Ratio] 13.9 % 11.8 - 14.4 % [employer] Phone: Platelet Estimate NOT REPORTED [employer] Phone: Platelet mean volume (Bld) [Entitic vol] 11.5 fL 8.1 - 13.5 fL [employer] Phone: Platelets (Bld) [#/Vol] 229 10*3/uL [employer] Phone: RBC (Bld) [#/Vol] 3.76 10*6/uL Low 3.95 - 5.1 1 m/uL [employer] Phone: RBC (Bld) [#/Vol] NOT REPORTED [employer] Phone: Segmented neutrophils/100 WBC (Bld) 73 % High 36 - 65 % [employer] Phone: Segs Absolute 5[employer]99 [employer] Work Phone: WBC (Bld) [#/Vol] 8.3 10*3/uL [employer] Phone: WBC (Bld) [#/Vol] NOT REPORTED [employer] Phone: [employer] Phone: CBC with Diffon 02-12-2021 Abs. Basophil <0.03 Normal 0.00-0.20 [facility] Comment on above: Performed By: #### C DP #### [facility] [address] [place] [address] Fur Tailor: Ilir Prasad MD Abs.Imm.Granulocyte 0.05 k/uL Normal 0.00-0.30 [facility] Comment on above: Performed By: #### C DP #### [facility] [address] [place] [address] Dr. [place], [address] [address] Fur Tailor: Ilir Prasad MD Abs.Neutrophil (Seg) 5.99 k/uL Normal 1.50-8.10 [facility] Comment on above: Performed By: #### C DP #### [address] [place], [place] [address] Fur Tailor: Ilir Prasad MD Basophils/100 WBC (Bld) 0 % Normal 0-2 [facility] Comment on above: Performed By: #### C DP #### [address] [place] [address] Fur Tailor: Ilir Prasad MD Eosinophils (Bld) [#/Vol] 0.11 10*3/uL Normal 0.00-0.44 [facility] Comment on above: Performed By: #### C DP #### [address] [place], [place] [address] Fur Tailor: Ilir Prasad MD Eosinophils/100 WBC (Bld) 1 % Normal 1-4 [facility] Comment on above: Performed By: #### C DP #### [facility] [address] [place] [address] Dr. [place], [place] [place] [address] Fur Tailor: Ilir Prasad MD Erythrocyte distribution width (RBC) [Ratio] 13.9 % Normal 11.8-14.4 [facility] Comment on above: Performed By: #### C DP #### [address] [place], [place] [address] Fur Tailor: Ilir Prasad MD Hematocrit (Bld) [Volume fraction] 33.3 % Low 36.3-47.1 [facility] Comment on above: Performed By: #### C DP #### [facility] [address] [place], [place] [address] Fur Tailor: Ilir Prasad MD Hemoglobin (Bld) [Mass/Vol] 10.7 g/dL Low 11.9-15.1 [facility] Comment on above: Performed By: #### C DP #### [facility] [address] [place], [place] [address] Fur Tailor: Ilir Prasad MD Immature granulocytes/100 WBC (Bld) 1 % High 0 [facility] Comment on above: Performed By: #### C DP #### [facility] [address] [place], [facility] Fur Tailor: Ilir Prasad MD Lymphocytes (Bld) [#/Vol] 1.67 10*3/uL Normal 1.10-3.70 [facility] Comment on above: Performed By: #### C DP #### [facility] [address] [place] [address] Dr. [place], [facility] Fur Tailor: Ilir Prasad MD Lymphocytes/100 WBC (Bld) 20 % Low 24-43 [facility] Comment on above: Performed By: #### C DP #### [address] [place], [place] [address] Fur Tailor: Ilir Prasad MD MCH (RBC) [Entitic mass] 28.5 pg Normal 25.2-33.5 [facility] Comment on above: Performed By: #### C DP #### [facility] [address] [place], [place] [address] Fur Tailor: Ilir Prasad MD MCHC (RBC) [Mass/Vol] 32.1 g/dL Normal 28.4-34.8 [facility] Comment on above: Performed By: #### C DP #### [facility] [address] [place] [address] Fur Tailor: Ilir Prasad MD MCV (RBC) [Entitic vol] 88.6 fL Normal 82.6-102.9 [facility] Comment on above: Performed By: #### C DP #### [facility] [address] [place], [place] [id number] Fur Tailor: Ilir Prasad MD Monocytes (Bld) [#/Vol] 0.44 10*3/uL Normal 0.10-1.20 [facility] Comment on above: Performed By: #### C DP #### [facility] [address] [place], [place] [id number] Fur Tailor: Ilir Prasad MD Monocytes/100 WBC (Bld) 5 % Normal 3-12 [facility] Comment on above: Performed By: #### C DP #### [address] [place], [place] 6498[address] Fur Tailor: Ilir Prasad MD Neutrophil (Seg) 73 % High 36-65 [facility] Comment on above: Performed By: #### C DP #### [address] [place], [place] [address] Fur Tailor: Ilir Prasad MD NRBC Automated 0.0 per 100 WBC Normal 0.0 [facility] Comment on above: Performed By: #### C DP #### [address] [place], [place] [address] Fur Tailor: Ilir Prasad MD Platelet mean volume (Bld) [Entitic vol] 11.5 fL Normal 8.1-13.5 [facility] Comment on above: Performed By: #### C DP #### [address] [place] [address] Fur Tailor: Ilir Prasad MD Platelets (Bld) [#/Vol] 229 10*3/uL Normal 138-453 [facility] Comment on above: Performed By: #### C DP #### [facility] [address] [place] [address] Fur Tailor: Ilir Prasad MD RBC (Bld) [#/Vol] 3.76 10*6/uL Low 3.95-5.11 [facility] Comment on above: Performed By: #### C DP #### [facility] [address] [place] [address] Fur Tailor: Ilir Prasad MD WBC (Bld) [#/Vol] 8.3 10*3/uL Normal 3.5-11.3 [facility] Comment on above: Performed By: #### C DP #### [facility] [address] [place] [address] Fur Tailor: Ilir Prasad MD Auto Diff Performed NOT REPORTED Normal [facility] Comment on above: Performed By: #### C DP #### [facility] [address] [place], [facility] Fur Tailor: Ilir Prasad MD Platelet Estimate NOT REPORTED Normal [facility] Comment on above: Performed By: #### C DP #### [address] [place], [place] [address] Fur Tailor: Ilir Prasad MD RBC morphology finding Nom (d) NOT REPORTED Normal [facility] Comment on above: Performed By: #### C DP #### [facility] [address] [place], [place] [address] Fur Tailor: Ilir Prasad MD WBC Morphology NOT REPORTED Normal [facility] Comment on above: Performed By: #### C DP #### [facility] [address] [place] [address] Fur Tailor: Ilir Prasad MD DRUG SCREEN MULTI URINEOrder ed By: Nash Mera on 02-12-2021 Amphetamine Screen, Ur Negative NEGATIVE [facility] [employer] Work Phone: Barbiturate Screen, Ur Negative NEGATIVE [facility] Work Phone: Benzodiazepine Screen, Urine Negative NEGATIVE [facility] Work Phone: Buprenorphine Urine Negative NEGATIVE [facility] Work Phone: Cannabinoid Scrn, Ur Negative NEGATIVE [facility] Work Phone: Cocaine Metabolite, Urine Negative NEGATIVE [facility] Work Phone: MDMA, Urine NOT REPORTED NEGATIVE [facility] Work Phone: Methadone Screen, Urine Negative NEGATIVE [facility] Work Phone: Methamphetamine, Urine Negative NEGATIVE [facility] Work Phone: Opiates, Urine Negative NEGATIVE [facility] Work Phone: Oxycodone Screen, Ur Negative NEGATIVE [facility] Work Phone: Phencyclidine, Urine Negative NEGATIVE [facility] Work Phone: Propoxyphene, Urine Negative NEGATIVE [facility] Work Phone: Test Information NOT REPORTED [facility] Work Phone: Tricyclic Antidepressants, Urine Negative NEGATIVE [facility] Work Phone: Comment on above: Drug screen results are to be used for medical purposes only. All positive results are unconfirmed. Testing for employment or legal uses should be sent to a reference laboratory for confirmation. [facility] Work Phone: Drug Scr, Abuse, Uron 2020 Amphetamine(s),Ur Negative Normal NEG [facility] Comment on above: Performed By: #### D AU #### [facility] [address] [place] [address] Fur Tailor: Ilir Prasad MD Barbiturate(s),Ur Negative Normal NEG [facility] Comment on above: Performed By: #### D AU #### [facility] [address] [place] [address] Dr[address] [place], [place] [id number] Fur Tailor: Ilir Prasad MD Benzodiazepine(s) Negative Normal NEG [facility] Comment on above: Performed By: #### D AU #### [facility] [address] [place] [address] Dr[address] [place], [place] [id number] Fur Tailor: Ilir Prasad MD Buprenorphrine, Ur Negative Normal [facility] Comment on above: Performed By: #### D AU #### [facility] [address] [place], [place] [address]183 Fur Tailor: Ilir Prasad MD Cannabinoid(s),Ur Negative Normal [facility] Comment on above: Performed By: #### D AU #### [facility] [address] [place] [address] Dr[address] [place], [place] [address]83 Fur Tailor: Ilir Prasad MD Cocaine Metabolite Negative Normal [facility] Comment on above: Performed By: #### D AU #### [facility] [address] [place] [address] Dr[address] [place], [place] [phone] Fur Tailor: Ilir Prasad MD Methadone Ql (U) Negative Normal [facility] Comment on above: Performed By: #### D AU #### [facility] [address] [place] [address] Dr[address] [place], [place] [id number] Fur Tailor: Ilir Prasad MD Methamphetamine, Ur Negative Normal [facility] Comment on above: Performed By: #### D AU #### [facility] [address] [place] [address] Dr[address] [place], [place] [phone] Fur Tailor: Ilir Prasad MD Opiate(s), Ur Negative Normal [facility] Comment on above: Performed By: #### D AU #### [facility] [address] [place], [place] [address]83 Fur Tailor: Ilir Prasad MD Oxycodone, Urine Negative Normal NEG [facility] Comment on above: Performed By: #### D AU #### [facility] [address] [place], [place] [address]83 Fur Tailor: Ilir Prasad MD Phencyclidine, Ur Negative Normal NEG [facility] Comment on above: Performed By: #### D AU #### [facility] [address] [place], [place] 3423683 Fur Tailor: Ilir Prasad MD Propoxyphene,Urine Negative Normal NEG [facility] Comment on above: Performed By: #### D AU #### [facility] [address] [place] [address] Fur Tailor: Ilir Prasad MD Tricyclic antidepressants Screen Ql (U) Negative Normal NEG [facility] Comment on above: Result Comment: Drug screen results are to be used for medical purposes only. All positive results are unconfirmed. Testing for employment or legal uses should be sent to a reference laboratory for confirmation. Performed By: #### D AU #### [facility] [address] [place] [address] [place] [address] Fur Tailor: Ilir Prasad MD Interpretive Info NOT REPORTED Normal [facility] Comment on above: Performed By: #### D AU #### [facility] [address] [place] [address] [place] [place], [place] [id number] Fur Tailor: Ilir Prasad MD MDMA, Urine NOT REPORTED Normal NEG [facility] Comment on above: Performed By: #### D AU #### [facility] [address] [place], [place] [id number] Fur Tailor: Ilir Prasad MD GBS, External ResultOrdered By: Historical Provider on 01-29-2021 GBS, External Result Negative [facility] [employer] Work Phone: [facility] [employer] Work Phone: ABO, External ResultOrdered By: Historical Provider on 08-15-2020 ABO, External Result A [facility] [employer] Work Phone: HIV, External ResultOrdered By: Historical Provider on 08-15-2020 HIV, External Result Non-Reactive [employer] Phone: Hepatitis B, External Result Ordered By: Historical Provider on 08-15-2020 Hep B, External Result Negative [employer] Phone: No Panel InformationOrdered By: Historical Provider on 08-15-2020 [employer] Phone: PROFILE IOrdered By : Historical Provider on 08-15-2020 ABO/Rh Positive [employer] Phone: Rh Factor, External ResultOr dered By: Historical Provider on 08-15-2020 Rh Factor, External Result Positive [employer] Phone: Hepatitis C Antibody, Heavy Machinery Assembler al ResultOrdered By: Historical Provider on 07-26-2020 Hepatitis C Antibody, External Result Negative [employer] Phone: No Panel InformationOrdered By: Historical Provider on 07-26-2020 [employer] Phone: RPR, External LabOrdered By: Historical Provider on 07-26-2020 RPR, External Result Non-Reactive [employer] Phone: Vag Pathogens DNAon 08-22-19 19 Hazel vag DNA Probe Positive Critically abnormal Negative for Gardnerella vaginalis by DNA Probe [facility] Comment on above: Result Comment: This is suggestive, but not diagnostic of bacterial vaginosis, results should be interpreted in conjunction with other data such as pH, amine odor, clue cells and vaginal discharge characteristics. Performed By: #### V AGDNA #### [facility] [employer] [address] [place], [place] [address] Protein mass conc Negative Normal Negative f or Lucía species by DNA Probe [facility] Comment on above: Performed By: #### V AGDNA #### [facility] [employer] [address] [place], [place] [address] Trich vag DNA Probe Negative Normal Negative for Trichomonas vaginalis by DNA Probe [facility] Comment on above: Performed By: #### V AGDNA #### [facility] [address] [place], [place] [address] CNOVon 08-20-2018 CNOV Office Visit (GISELLA ) JOVON LOPEZ ([id number]) 1995 F T Date Time Provider Department 08/20/18 2:00 PM BRIGITTE MAIN (STEVIE) GISELLA During your visit today, we recorded the following information about you: Blood pressure Weight Height Last Period 110/70 60.3 kg 1.575 m 07/20/18 Kacyee Horvath MA 08/20/2018 2:17 PM Signed Agents' Records Clerk offered: Patient declines. Brigitte Main APRN.CNP 08/20/2018 [...] external genitalia normal, normal Bartholin's glands, urethra, Mountain Pine's glands, no vulvar lesions, no cervical lesions, good vaginal support, normal appearing perineal body and perianal region, moderate amount yellow discharge noted BIMANUAL: uterus normal size, shape and consistency, no adnexal masses and non-tender RECTOVAGINAL: deferred. 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 Referring Provider: SELF [200] Allergies As of Date: 08/20/2018 Noted Allergy Reaction PENICILLINS 08/20/2018 16 - Unknown Comments: Happened when young.. 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 [50] Cmt: Vaginal pain and discharge [...] test, unconfirmed [Z32.00] Order(s):PAP FLUID CERVICAL SCREENING [4037499] Order #: [id number] VAGINAL PATHOGENS DNA PROBES [SQVAGDNA] Order #: [id number] GC/CHLAMYDIA DNA DET [SQGCCAMP] Order #: [id number] TSH BLD [SQTSH] Order #: [id number] PROLACTIN BLD [SQPROL] Order #: [id number] TESTOSTERONE, FREE AND TOTAL [SQFTESTO] Order #: [id number] HGB A1C [RCWMP6C] Order #: [id number] DHEA-S BLD [SQDHEAS] Order #: [id number] FSH BLD [SQFSH] Order #: [id number] INSERT INTRAUTERINE DEVICE [4131741] Order #: [id number] HCG QUAL UR B/O [0021728] Order #: [id number] Prescriptions as of 08/20/2018 Sig: HYDROCODONE 5 MG-ACETAMINOPHE* Take 1 tablet by mouth every * Problem List As Of Date: 08/20/2018 (None) Visit Notes: >> Kaycee Horvath MA ThuAug 20, 2018 2:11 PM Status: Signed Agents' Records Clerk offered: Patient declines. >> Kaycee Horvath MA ThuAug 20, 2018 4:38 PM Status: Signed Negative upt. Encounter Status:Closed by BRIGITTE MAIN CNP on 08/20/18 Normal [facility] CYTOLOGYon 08-20-2018 CYTOLOGY Specimen originated from [facility] Specimen #: [id number] Submitting Physician: BRIGITTE YOUNG CNP SPECIMEN SUBMITTED [...] from every slide are reviewed by a internist medical doctor md. RAYNE Covington(ASCP) (Electronic Signature) ____ CLINICAL DATA ROUTINE EXAM, HPV Testing: Yes, Reflex HPV for ASCUS Date of Last Menstrual Period: 07/20/2018 STAINS A: CERVICAL, SCREENING, FLUID THIN PREP REGISTERED DIET TECHNICIAN Brigitte Echavarria M.D., Dry Plasterer Helper Date of Report: 08/25/2018 Date of Procedure: 08/20/2018 Date of Receipt: 08/23/2018 Submitted by: BRIGITTE YOUNG CNP Location: [facility] Diagnostic interpretation performed at [facility], [address] [place] [address]. CLIA Number: [id number] The Pap Smear is a screening test for cervical cancer. False negative results occur with all screening tests, emphasizing the need for rescreening at recommended intervals, and clinical correlation. Normal [facility] GC/Chlamydia Amplifon 2018 Chlamydia Amplif Positive Critically abnormal [facility] Comment on above: Result Comment: In l ow prevalence populations, the likelihood of a false positive may be higher than a true positive. Retesting by another method may be appropriate for patients who lack risk factors or clinical signs and symptoms consistent with infection. Performed By: #### G CCT #### [place] [address] GC Amplification Negative Normal [facility] Comment on above: Performed By: #### G CCT #### [facility] [address] [place], [place] [address] GC/Chlam Amp Source Cervix Normal [facility] Comment on above: Performed By: #### G CCT #### [facility] [address] [place], [place] [address] PROGRESSon 08-20-2018 Protein mass conc HNO ID: [id number] Author: Brigitte Grier (Glass Embosser) O'Young Service: ? Author Type: Nurse Practitioner [...] external genitalia normal, normal Bartholin's glands, urethra, Mountain Pine's glands, no vulvar lesions, no cervical lesions, good vaginal support, normal appearing perineal body and perianal region, moderate amount yellow discharge noted BIMANUAL: uterus normal size, shape and consistency, no adnexal masses and non-tender RECTOVAGINAL: deferred. 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 exam Breast cancer screening Menorrhagia with irreg [...] for insertion pending ins coverage Brigitte Main, OIL PRODUCER.FORENSIC SERGEANT Normal [facility] Vital Signs Date Time Vital Sign Value Performing Clinician Facility 06-30-2023 10:20-0500 Body height 157.48 cm Luis Leung Other [employer] Other 06-30-2023 10:20-0500 Body mass index (BMI) [Ratio] 22.49 kg/m2 Luis Leung Other [employer] Other 06-30-2023 10:20-0500 Body weight 55.79 kg Luis Leung Other [employer] Other 06-30-2023 10:20-0500 Diastolic blood pressure 65 mm[Hg] Luis Leung Other [employer] Other 06-30-2023 10:20-0500 Systolic blood pressure 115 mm[Hg] Luis Leung Other [facility] [employer] Other 05-17-2022 15:15-0500 Diastolic blood pressure 59 mm[Hg] PHYSICIAN NO [facility] 05-17-2022 15:15-0500 Heart rate 67 /min PHYSICIAN NO [facility] 05-17-2022 15:15-0500 Respiratory rate 15 /min PHYSICIAN NO [facility] 05-17-2022 15:15-0500 SaO2% (BldA) [Mass fraction] 99 % PHYSICIAN NO [facility] 05-17-2022 15:15-0500 Systolic blood pressure 111 mm[Hg] PHYSICIAN NO [facility] 05-17-2022 11:45-0500 Body height 160.02 cm PHYSICIAN NO [facility] 05-17-2022 11:45-0500 Body temperature 98 [degF] PHYSICIAN NO [facility] 05-17-2022 11:45-0500 Body weight 58 kg PHYSICIAN NO [facility] 02-15-2021 07:23-0400 Body temperature 98.1 [degF] Nash Floro OIL PRODUCER - CNM Work Phone: [employer] Work Phone: 02-15-2021 07:23-0400 Diastolic blood pressure 59 mm[Hg] Nash Floro OIL PRODUCER - CNM Work Phone: [employer] Work Phone: 02-15-2021 07:23-0400 Heart rate 71 /min Nash Floro OIL PRODUCER - CNM Work Phone: [employer] Work Phone: 02-15-2021 07:23-0400 Respiratory rate 16 /min Nash Floro OIL PRODUCER - CNM Work Phone: [employer] Work Phone: 02-15-2021 07:23-0400 Systolic blood pressure 98 mm[Hg] Nash Floro OIL PRODUCER - CNM Work Phone: [employer] Work Phone: 02-13-2021 20:25-0400 SaO2% (BldA) [Mass fraction] 97 % Nahs Mera OIL PRODUCER - CNM Work Phone: [employer] Work Phone: 02-12-2021 15:50-0400 Body height 157.5 cm Nash Mera APRN - CN Work Phone: [employer] Work Phone: 02-12-2021 15:50-0400 Body mass index (BMI) [Ratio] 33.29 kg/m2 Nash Mera APRN - CNM Work Phone: [employer] Work Phone: 02-12-2021 15:50-0400 Body weight 82.56 kg Nash Mera APRN - CNM Work Phone: [employer] Work Phone: Encounters Encounter Date Encounter Type Care Provider Facility Start: 12-08-2023 ambulatory NASH L FLORO Not Malinda ilable Start: 12-07-2023 ambulatory NASH L FLORO Not Malinda ilable Start: 11-23-2023 End: 11-23-2023 ambulatory NASH L FLORO Not Available Start: 11-04-2023 End: 11-04-2023 ambulatory NASH L FLORO Not Available Start: 10-21-2023 End: 10-21-2023 ambulatory NASH L FLORO Not Available Start: 09-23-2023 End: 09-23-2023 ambulatory NASH L FLORO Not Available Start: 08-27-2023 End: 08-27-2023 ambulatory NASH L FLORO Not Available Start: 08-14-2023 End: 08-14-2023 ambulatory NASH L FLORO Not Available Start: 07-30-2023 End: 07-30-2023 ambulatory NASH L FLORO Not Available Start: 07-02-2023 End: 07-02-2023 ambulatory NASH Marvel IZAGUIRREO Not Available Start: 06-30-2023 End: 06-30-2023 ambulatory Luis Leung Other [employer] Other Start: 06-30-2023 Office outpatient visit 15 minutes Luis Leung [facility] Start: 06-30-2023 Telephone encounter Luis Crews [facility] Start: 06-04-2023 End: 06-04-2023 ambulatory NASH L FLORO Not Available Start: 05-14-2023 End: 05-14-2023 ambulatory NASH L FLORO Not Available Start: 04-21-2023 End: 04-21-2023 Emergency department patient visit PHYSICIAN NO FAMILY Facility:[facility] Start: 10-19-2022 End: 10-19-[address] NONE LISTED REQUEST Facility: Start: 05-26-2022 ambulatory Alize Jefferson RN NURS E STEEL ENGRAVER Comment on above: Muscle Aches Start: 05-24-2022 End: 05-25-2022 Emergency department patient visit IKE HASTINGS Facility:[facility] Start: 05-23-2022 End: 05-23-2022 ambulatory GONZALEZ MAN [facility] Start: 05-17-2022 End: 05-17-2022 Emergency department patient visit PHYSICIAN NO FAMILY [facility] Start: 05-01-2022 End: 05-01-[address] NONE LISTED REQUEST Facility: Start: 05-01-2021 End: 05-02-2021 ambulatory REFERRED SELF Facility:[facility] Start: 02-12-2021 End: 02-15-2021 Evaluation and management of inpatient NASH MERA [facility] Start: 02-12-2021 End: 02-15-2021 Evaluation and management of inpatient Nash Mera OIL PRODUCER - CNM Work Phone: [facility] Comment on above: S/P primary low arredondo sverse (Primary Dx) Start: 08-20-2018 End: 08-23-2018 Patient encounter procedure BRIGITTE BA [facility] Luis Procedures Date Procedure Procedure Detail Performing Clinician Start: 02-14-2021 Blood count hemoglobin Nash aCrdoso CN Work Phone: Start: 02-13-2021 Antibody screen Nash Cardoso [facility] Work Phone: Start: 02-13-2021 Blood typing serolog ic abo Fernando Hooks MD Work Phone: Start: 02-12-2021 Blood count complete auto&auto difrntl wbc Nash Cardoso [facility] Work Phone: Start: 02-12-20[address] class li [address] a Nash Mera OIL PRODUCER - CN Work Phone: Start: 01-29-2021 GBS, EXTERNAL RESULT Hi justinaical Provider Start: 08-15-2020 ABO, EXTERNAL RESULT Hi justinaical Provider Start: 08-15-2020 HEPATITIS B, EXTERNA L RESULT Historical Provider Start: 08-15-2020 HIV, EXTERNAL RESULT Hi alban Provider Start: 08-15-2020 Obstetric panel Histori brian Provider Start: 08-15-2020 RH FACTOR, EXTERNAL RESULT Historical Provider Start: 07-26-2020 HEPATITIS C ANTIBODY , EXTERNAL RESULT Historical Provider Start: 07-26-2020 RPR, EXTERNAL RESULT Hi alban Provider H/O: section S/P primar y low transverse Nash Mera APRN - CN Work Phone: H/O: section S/P primar y low transverse Nash Mera OIL PRODUCER - [facility] Work Phone: Plan of Treatment Date Care Activity Detail Author Start: 02-06-2022 Influenza vaccination INFLUENZA (#1) [facility] Start: 08-20-2021 PAP TESTING PAP TESTING [facility] Start: 06-08-2021 DEPRESSION ASSESSMENT DEPRESSION ASS [facility] Start: 02-06-2021 Influenza vaccination Flu vaccine (# 1) [employer] Phone: Start: 2018 Screening for malign ant neoplasm of cervix Pap smear [employer] Phone: Start: 2016 DTaP/Tdap/Td vaccine (1 - Tdap) DTaP/Tdap/Td vaccine (1 - Tdap) [facility] [employer] Phone: Start: 2016 Urine microalbumin profile DTAP,TDAP,TD (1 - Tdap) [facility] Start: 2015 HEPATITIS C SCREENING HEPATITIS C [facility] Start: 2015 HIV SCREENING HIV SCREENING [facility] Start: 2013 Screening for Chlamy graham trachomatis Chlamydia screen [facility] [employer] Phone: Start: 2012 HIV screening HIV screen [facility] Work Phone: Start: 2011 PEDS TO ADULT TRANSI TION ANNUAL ASSESSMENT PEDS TO ADULT TRANSITION ANNUAL ASSESSMENT [facility] Start: 2009 COVID-19 Vaccine (1) COVID-19 Vaccin e (1) [facility] [employer] Phone: Start: 2009 PEDS TO ADULT TRANSI TION INITIAL DISCUSSION PEDS TO ADULT TRANSITION INITIAL DISCUSSION [facility] Start: 2008 HPV vaccine (1 - 2-d ose series) HPV vaccine (1 - 2-dose series) [facility] Start: 1998 Varicella vaccine (1 of 2 - 2-dose childhood series) Varicella vaccine (1 of 2 - 2-dose childhood series) [facility] [employer] Phone: Start: 1997 COVID-19 VACCINE (#1) COVID-19 VACCI NE (#1) [facility] Start: 1997 HEPATITIS B (1 of 3 - 3-dose series) HEPATITIS B (1 of 3 - 3-dose series) [facility] Start: 1997 Hepatitis C screening Hepatitis C vt nakullui [facility] [employer] Phone: Bacteria identified in Urine by Culture [facility] Oxygen therapy [[facility] Data Set] Initiate Oxygen Therapy Protocol Respiratory Care Routine Daily until discontinued starting [facility]: Comment on above: Daily until disconti nued starting 02/13/2021 Patient Education Abdominal Pain , Adult ED [facility] Work Phone: Patient referral [facility] Work Phone: Spirometry panel Incentive blanka metry Respiratory Care Routine Every 2hr while awake until discontinued starting 02/13/2021 [employer] Work Phone: Comment on above: Every 2hr while awak e until discontinued starting 02/13/2021 Immunizations Immunization Date Immunization Notes Care Provider Fa cility 02-13-2021 diphtheria, tetanus toxoids and acellular pertussis vaccine, unspecified formulation [place] Work Phone: [employer] Work Phone: 02-13-2021 measles, mumps and rubella virus vaccine [place] Work Phone: [employer] Work Phone: Payers Date Payer Category Payer Self-pay 2021 Medicaid [facility] MEDICAID [facility] COMMUNITY PLAN MEDICAID [facility] [id number] 2021-Present [phone] [address] [place] [address] Medicaid [id number] 1997 Unknown [id number] 2.16.840.1.561633.3.579.2. 173 1997 Unknown [id number] 2.16.840.1.723809.3.579.2. 647 1997 Unknown [id number] 2.16.840.1.092867.3.579.2. 593 1997 Unknown [id number] 2.16.840.1.980545.3.579.2. 593 1997 Unknown [id number] 2.16.840.1.941658.3.579.2. 1259 1997 Unknown [id number] 2.16.840.1.966163.3.579.2. 9 1997 Unknown [id number] 2.16.840.1.878019.3.579.2. 9 1997 Unknown [id number] 2.16.840.1.752056.3.579.2. 9 1997 Unknown [id number] 2.16.840.1.356274.3.579.2. 1258 1997 Unknown [id number] 2.16.840.1.134681.3.579.2. 9 1997 Unknown [id number] 2.16.840.1.829264.3.579.2. 1258 1997 Unknown [id number] 2.16.840.1.848881.3.579.2. 9 1997 Unknown [id number] 2.16.840.1.948395.3.579.2. 1258 1997 Unknown [id number] 2.16.840.1.353984.3.579.2. 1258 1997 Unknown [id number] 2.16.840.1.131725.3.579.2. 1258 1997 Unknown [id number] 2.16.840.1.849003.3.579.2. 9 1997 Unknown [id number] 2.16.840.1.386764.3.579.2. 9 1959 Private Health Insurance [id number] [id number]. [id number] 1959 Unknown [id number] Unknown [id number] 2.16.840.1.845566.3.579.2. 531 Social History Date Type Detail Facility Start: 08-20-2018 End: 02-13-2021 Tobacco smoking status CAIS Never smoker [facility] Start: 08-20-2018 End: 02-13-2021 Tobacco use and exposure Never used [employer] Start: 09-08-2021 Alcohol intake Ex-drinker (finding) [employer] Phone: Start: 1995 Sex Assigned At Not on file M PT [employer] Phone: Exposure to SARS-CoV-2 (event) Not sure [facility] Start: 05-17-2022 Tobacco smoking status NHIS Smoker (finding) [facility] Start: 1995 Sex Assigned At Female F [facility] Start: 05-24-2022 Alcohol intake Current drinke r of alcohol (finding) [facility] Start: 08-20-2018 Tobacco Comment Smokes radhames--smokeless cigs. [facility] Start: 08-20-2018 Alcohol Comment a couple times per month [facility] Sex Assigned At Sex Assigned At Bir th [employer] Other Clinical Notes 02-15-2021 to 06-30-2023 Note Date & Type Note Facility 06-30-2023 Evaluation note Encounter Date Diagnosis Assessment Notes Jun, Diarrhea (ICD-10 - R19.7) Jun, Nausea (ICD-10 - R11.0) Jun, Weight loss (ICD-10 - R63.4) [place] [employer] Other 12-30-2022 NotePlease notify patient that all of her labs are normal. We will proceed with EGD for further evaluation as planned. She needs to follow up with her PCP or whoever ordered the UA. This was not ordered by us and is abnormal. Please advise patient to follow up with ordering provider.[facility]12-19-2022 Miscellaneous Notes* Telephone Encounter - Alize Jefferson RN - 05/26/2022 10:53 PM EST Reason for Call: pt does not have a current PCP and is having worsening symptoms since seen in ED on 05/24/22 Outcome: Advised to return to ED now, agreeable. [facility] Note Attestation signed by Gonzalez Powell MD at 05/23/2022 7:30 PM I personally saw and examined the patient on the same date of service as resident/fellow . I discussed the findings and therapeutic plan with the resident/fellow . I agree with the documentation, except for any edits/updates below. [facility] Gastroenterology History & Physical CHIEF COMPLAINT Chief Complaint Patient presents with New Patient Fatigue Had gallbladder removed in 03/2021, Dr. Powell found and fixed leak 04/2021, pt is having major problems with eating and drinking. Was referred back in 2020 HISTORY OF PRESENT ILLNESS: Jovon Lopez is a 27 y.o. female with history laparoscopic cholecystectomy on 03/25/2021 at [facility] (in setting of cholecystitis) complicated by biliary leak status post biliary stent on 03/28/2021 and transferred back to [place]. While there, she had worsening abdominal pain [...] cholangiogram. Biliary sphincterotomy was performed. A 10 Uzbek X 9 cm plastic biliary stent was [...] normal bowel sounds, soft, (more content not included)...[facility]11-01-2021 History general Narrative - Reported* Type Description Date Surgical History C section Surgical History cholecystectomy 04/2021 [facility] Other 09-10-2021 History of Present illness Narrative* Lila Mcintosh RN - 02/15/2021 2:17 PM EDT RN calls patient and updates her that her follow up appointment and baby's follow up appointment are made (pt had requested RN make appointments for her) - updated of dates and times of appointments. * Lila Mcitnosh RN - 02/15/2021 12:00 PM EDT Maternal and discharge instructions explained to both parents - both v.u. * Kyra Smith APRN - CNM - 02/15/2021 9:51 AM EDT C/S Labor and Delivery Post Progress Note [...] day # 2 PLAN: Discharge home today * Kyra Smith APRN - CNM - 02/14/2021 8:16 AM EDT C/S Labor and Delivery Post Progress Note SUBJECTIVE: Patient doing well today. Patient had a baby boy she is breast- feeding but forgot her pump I did review with her that the organizational development consultant can review pump usage with [...] op day # 1 PLAN: Continue care * Pramod Lantigua RN - 02/13/2021 8:23 PM EDT Able to bend both knees, states tingling in both legs and feet * Pramod Lantigua RN - 02/13/2021 8:00 PM EDT Able to rotate left lower extremity, able to bend right lower extremity at knee * Nash Mera APRN - CNM - 02/13/2021 7:35 PM EDT [employer] Geological Note: engineering assistant/clinical assistant professor primary section with Dr Hooks Closed SQ layer and also closed skin incision. All edges approximated, no bleeding or drainage noted. cnc maintenance technician places sterile dressing over incision. Patient tolerated well. * Pramod Lantigua RN - 02/13/2021 7:35 PM EDT Able to rotate right lower extremtie, unable to move left lower extremity at this time. * Nash Mera APRN - CNM - 02/13/2021 7:22 PM EDT 1624 call received at my office from nursing staff that patient was having variables and late decelerations. Patient was on her back when they started, nurses repositioned patient, discontinued pitocin infusion and then stated after repositioning baby had no more decelerations. RN reported strip was a category 1 tracing and baby was recovered from decels. Pitocin remains off. 1718 enroute to hospital I called Dr Hooks. [...] is in agreement to proceed with primary section.Dr Hooks notified and he communicated with surgery team to proceed with surgery at approximately 1800. * Pramod Lantigua RN - 02/13/2021 7:19 PM EDT Able to feel touch down to toes, unable to move lower extremities at this time. * Lila Mcintosh RN - 02/13/2021 5:23 PM EDT Last FRIED notified that Dr. Hooks is going to do as soon as Tod ABREU arrives. Yohana Silvestre CRNA present in department. * Lila Mcintosh RN - 02/13/2021 5:15 PM EDT Surgery notified that cruller maker machine and recovery nurse needed for impending . [facility] Phone: [phone] 447-277009-10-2021 Hospital Discharge instructions* Instructions* Lila Mcintosh RN - 02/15/2021 Follow-up with your OB doctor as specified. [facility] OB Department phone: Dr. Neva Smith CNM Dr. Brittani Espinoza [facility] [address] [facility] [address] [place] Lani Mera, MSN, OIL PRODUCER, CNM [place] [id number] [facility] [address] DIET Eat a well balanced diet focusing on foods high in fiber and protein. Drink plenty of fluids especially water. To avoid constipation you may take a mild stool softener as recommended by your doctor or fountain jerk. ACTIVITY Gradually increase your activity. Resume exercise regimen only after advice by your doctor or fountain jerk. Avoid lifting anything heavier than a gallon of milk for SIX weeks. Avoid driving until your doctor or fountain jerk has given their approval. Rise slowly from [...] may increase. This is your body's way oftelling you, you need to take things easier and rest more often. Call your care provider if you are saturating more than one maxi pad in an hour & resting does not help. BREAST CARE Take medications as recommended by your doctor or fountain jerk for pain If you develop a warm, red, tender area on your breast or develop a fever contact your OB provider. For moms: If you become engorged, feeding may be more difficult or painful for 1-2 days. You may find it helpful to hand express some milk so that the can latch on more easily. While , continue to take your vitamins as directed by your doctor or fountain jerk. Refer to the booklet in the folder/binder for more information. If you feel you need more assistance or have questions, please call Loreta Reyes IBCLC, organizational development consultant, at or the OB department [...] they become loose or soiled. If used, [place] should be removed by your care provider. [...] area in your calf. documented in this encounterWv[facility] HospitalASS[facility]FORMATION [facility] Work Phone: [phone] 942-800409-10-2021 Hospital course Narrative* Kyra Smith APRN - CNM - 02/15/2021 10:02 AM EDT Obstetrical Discharge Form Gestational Age:37w6d Antepartum complications: Hydropic gallbladder Date of Delivery: 02/13/21 Type of Delivery: P C/S Delivered By: Dr. Hooks Assisted By:Juan Mera APRN, CNM} Baby: male Anesthesia: spinal Intrapartum complications: Non-reassuring Status Feeding method: breast Blood type: A POSITIVE Rubella: No results found for: RUBG T. Pallidium, IGG: No results found for: TREPG Hepatitis B Surface Antigen: No results found for: HEPBSAG HIV: No results found for: [id number] Results for orders placed or performed during [...] # 1.67 1.10 - 3.70 k/uL Absolute [place] # 0.44 0.10 - 1.20 k/uL Absolute [...] Range Expiration Date 02/16/2021,2359 Arm Band Number [id number] ABO/Rh A POSITIVE Antibody Screen NEGATIVE complications: none Discharge Medication: Jovon Lopez Stanley Medication Instructions [place]:[id number] Printed on:02/15/21 [facility] Medication Information docusate sodium (COLACE) 100 MG [...] and post depression check documented in this [facility] Phone: evalenogew note* Diagnosis S/P primary low transverse - Primary delivery, without mention of indication, unspecified as to episode of care Encounter for induction of labor Term intolerance to labor, delivered, current hospitalization Abnormality in heart rate/rhythm, delivered, with or without mention of antepartum condition documented in this encounter [facility] Phone: evalacxyii noteNo assessment information available [facility] Work Phone: Evaluation noteNo InformationNort [employer] Other Hospital Discharge instructions Additional Instructions Follow-up with GI doctor provided Return to the ED if develop worsening symptoms or concerns take the new medications as prescribed, use pepto bismol, tums as needed avoid any spicy foods, fatty foods and [facility]Fair[facility] Work Phone: Summary Purpose Family History [...] section and content) DATE CREATED AUTHOR 08/25/2018 [facility] DATE CREATED AUTHOR AUTHOR'S ORGANIZ ATION 02/16/2021 [facility] DATE CREATED AUTHOR AUTHOR'S ORGANIZ ATION 05/21/2021 [facility] DATE CREATED AUTHOR AUTHOR'S ORGANIZ ATION 05/27/2021 [facility] dical Specialist DATE CREATED AUTHOR AUTHOR'S ORGANIZ ATION 05/30/2022 [facility] DATE CREATED AUTHOR AUTHOR'S ORGANIZ ATION 07/17/2022 [facility] DATE CREATED AUTHOR AUTHOR'S ORGANIZ ATION 10/22/2022 [facility] DATE CREATED AUTHOR AUTHOR'S ORGANIZ ATION 07/17/2023 [facility] DATE CREATED AUTHOR AUTHOR'S ORGANIZ ATION 12/08/2023 [facility] dical Specialists EPIC Reason for Visit (unrecogniz ed section and content) Reason Comments Scheduled Induction Cytotec Induction Status Reason Specialty Diagnoses / Procedures Referre d By Contact Referred To Contact Diagnoses Encounter for induction of labor Term Nash Mera APRN - [place] [address] [place] [address] [facility] Reason Comments Muscle Aches Ordered Prescriptions [...] to epidural placement., Pre-op (day of surgery) 173 (Given - Provider: Claudine Benavides, HALLE) clindamycin (CLEOCIN) 900 mg in dextrose 5 % 50 mL IVPB (COMPLETED) 900 mg, IntraVENous, STEEL ENGRAVER TO O.R., 1 dose, On Thu02/13/21 at [...] Do not crush or break., 2100 (Due) 0927 (Given - Provider: Claudine Benavides RN)1957 (Given - Provider: Deja Villalobos, HALLE) 0740 (Given - Provider: Lila Mcintosh, RN)2100 (Due) enoxaparin (LOVENOX) injection 40 mg 40 mg, SubCUTAneous, DAILY, First dose on Megan 02/14/21 at 0745, 0724 (Given - Provider: Claudine Benavides, HALLE) 0739 (Given - Provider: Lila Mcintosh, RN) famotidine (PEPCID) injection 20 mg (COMPLETED) 20 mg, IntraVENous, ONCE, On Thu02/13/21 at 1745, For 1 dose, Give 60 minutes before surgery., Pre-op (day of surgery) 173 (Given - Provider: Claudine Benavides RN) ibuprofen (ADVIL;MOTRIN) tablet 800 mg 800 mg, Oral, EVERY 8 HOURS, First dose on Megan 02/14/21 at 2000, Do not start till 6 hours after last dose of toradol. Do not crush or break., Post-op 0040 (Given - Provider: Deja Villalobos RN)0400 (Due)1257 (Given - Provider: Lila Mcintosh RN)1999 (Due) ketorolac (TORADOL) injection 30 mg (COMPLETED) 30 mg, IntraVENous, EVERY 6 HOURS, First dose on Thu02/14/21 at 0100, For 4 doses, Do not administer for more than 5 days., 0037 (Given - Provider: Marlene Ceballos, RN)0637 (Given - Provider: Bobbi Devi, RN)1236 (Given - Provider: Claudine Benavides, HALLE)1957 (Given - Provider: Deja Villalobos RN) metoclopramide (REGLAN) injection 10 mg (COMPLETED) 10 mg, IntraVENous, ONCE, On Thu02/13/21 at 1745, For 1 dose, Give 60 minutes before surgery., Pre-op (day of surgery) 1735 (Given - Provider: Claudine Benavides, HALLE) miSOPROStol (CYTOTEC) pre-split tablet TABS 25 mcg (CANCELED) 25 mcg, Vaginal, EVERY 4 HOURS, First dose on Thu02/12/21 at 1545, Place posterior fornix/vagina, insert every 3-6 hours PRN. Avoid tachysystole. Can administer Oxytocin 4 hours after last dose. Maximum of 6 doses in 24 hours., Labor and Delivery 0013 (Given - Provider: Marlene Ceballos RN)0451 (Given - Provider: Linette Lee, HALLE)0745 (Due)1145 (Due)1545 (Due) vitamin 27-1 MG tablet 1 tablet 1 tablet, Oral, DAILY, First dose on Thu02/13/21 at 2015, Begin when normal bowel activity resumes., 1952 (Not Given - Provider: Marlene Ceballos, HALLE - Reason: Other) 0927 (Given - Provider: Claudine Benavides, HALLE) 0740 (Given - Provider: Lila Mcintosh, HALLE) sodium chloride flush 0.9 % injection 10 mL 10 mL, IntraVENous, EVERY 12 HOURS SCHEDULED (2 times per day), First dose on Thu02/13/21 at 2100, 2100 (Due) 0900 (Due)2100 (Due) 0900 (Due)2100 (Due) Txedozr-Barwmd-Jgkfj Pertussis (BOOSTRIX) injection 0.5 mL 0.5 mL, IntraMUSCular, PRIOR TO DISCHARGE, Starting on Thu02/13/21 at 1949, For 1 dose, If not previously administered during at 27-36 weeks as recommended by CDC., Continuous Medication Order 02/13/2021 02/14/2021 02/15/2021 lactated ringers infusion (CANCELED) IntraVENous, at 125 mL/hr, CONTINUOUS, Starting on Thu02/12/21 at 1545, Labor and Delivery 0952 (New Bag - Provider: Adela Alvarado RN)1550 (New Bag - Provider: Claudine Benavides, HALLE)1606 (Rate/Dose Change - Provider: Adela Alvarado RN)1644 (Rate/Dose Change - Provider: Claudine Benavides, HALLE)1730 (Rate/Dose Change - Provider: Claudine Benavides RN) lactated ringers infusion (CANCELED) IntraVENous, at 125 mL/hr, CONTINUOUS, Starting on Thu02/13/21 at 1745, Labor and Delivery (Signed and Held) 1805 (New Bag - Provider: Luther Silvestre APRN - LEAD FABRICATOR)1912 (Anesthesia Volume Adjustment - Provider: Luther Silvestre APRN - FARIHA) lactated ringers infusion IntraVENous, at 125 mL/hr, CONTINUOUS, Starting on Thu02/13/21 at 2015, 0055 (New Bag - Provider: Marlene Ceballos RN)0903 (New Bag - Provider: María Vitale RN) oxytocin (PITOCIN) 30 units in 500 [...] every 2-3 minutes with cervical changes or [place] units (MVU) greater than 200 in a [...] with frequent/long duration piggyback infusions, Starting on 02/13/21 at 1949, Administer at the same rate as the piggyback being infused., acetaminophen (TYLENOL) tablet 650 mg 650 mg, Oral, EVERY 4 HOURS PRN, Pain Mild (1-3), Fever, Fever >100.5 F (38 C) or incisional pain, Starting on Thu02/13/21 at 1949, Maximum dose of acetaminophen is 4000 mg from all sources in 24 hours., Post-op 1204 (Given - Provider: Claudine Benavides RN) benzocaine-menthol (DERMOPLAST) 20-0.5 % spray Topical, PRN, Pain, Starting on Megan 02/14/21 at 1200, Apply to perineum 1204 (Given - Provider: Claudine Benavides RN) calcium carbonate (TUMS) chewable tablet 1,000 mg (CANCELED) 1,000 mg, Oral, 3 TIMES DAILY PRN, Heartburn, Starting on Thu02/13/21 at 0027 0045 (Given - Provider: Marlene Ceballos, RN) carboprost (HEMABATE) injection 250 mcg 250 mcg, IntraMUSCular, PRN, bleeding, Starting on Thu02/13/21 at 1948, May repeat every 15 minutes up to a cumulative maximum dose of 1000 mcg, at physician's request., Post-op diphenhydrAMINE (BENADRYL) injection 25 mg 25 mg, IntraVENous, EVERY 6 HOURS PRN, Itching, Hives, Starting on Thu02/13/21 at 194, lansinoh lanolin ointment Topical, EVERY 1 HOUR PRN, Dry Skin, nipple discomfort, Starting on Thu02/13/21 at 1948, Post-op 0733 (Given - Provider: Claudine Benavides RN) measles, mumps & rubella vaccine (MMR) injection [...] Pain Moderate (4-6), Starting on Thu02/13/21 at 1949, Maximum dose of acetaminophen is 4000 mg from all sources in 24 hours., 1736 (See Alternative - Provider: Pramod Hernandez LPN) 0456 (See Alternative - Provider: Inna Joseph, HALLE) oxyCODONE-acetaminophen (PERCOCET) 5-325 MG per tablet 2 tablet(Linked Group 1) 2 tablet, Oral, EVERY 4 HOURS PRN, Pain Severe (7-10), Starting on Thu02/13/21 at 1949, Maximum dose of acetaminophen is 4000 mg from all sources in 24 hours., 1736 (Given - Provider: Pramod Hernandez LPN - Comment: INCISION) 045 (Given - Provider: Inna Joseph, HALLE) oxytocin [...] Care 2002 (New Bag - Provider: Pramod Lantigua RN - Comment: done per HALLE Rosario) [...] may be documented in a n alternate sectionNo InformationNo Information Source Comments (unrecognize d section and content) In the event this informatio n is protected by the Federal Confidentiality of Alcohol and Drug Abuse Patient Records regulations: The Federal rules restrict any use of the information to criminally investigate or prosecute any alcohol or drug abuse patient.[facility] FOR RECORDS PERTAINING TO PATIENTS WHO ARE [...] BE BASED ON THE PRIMARY CLINICAL RECORDS. [facility]. provides no warranty or guarantee of the accuracy or completeness of information in this document.
[2023-12-10 12:42] VITALS: BP 107/68; PULSE 85
[2023-12-10 12:57] LABS: Bilirubin Urine NEGATIVE (NEGATIVE); Blood Urine NEGATIVE (NEGATIVE); Clarity Urine CLEAR (CLEAR); Color Urine LT. YELLOW (YELLOW); Glucose Urine UA NEGATIVE (NEGATIVE); Ketones Urine NEGATIVE (NEGATIVE); Leukocyte Esterase Urine TRACE (NEGATIVE); Nitrite Urine NEGATIVE (NEGATIVE); Protein Urine NEGATIVE (NEG/TRACE); Specific Gravity Urine 1.025 (1.005-1.025); pH Urine 6.5 (5.0-9.0)
[2023-12-10 13:15] LABS: Urine Microscopic Indicated YES
[2023-12-10 13:17] LABS: Bacteria Urine LARGE #/HPF (NONE SEEN); RBC Urine NONE SEEN #/HPF (0-2)
[2023-12-10 13:18] LABS: Mucus Urine SMALL (NONE SEEN); Squamous Epithelial Cell Urine MANY #/LPF (NONE/RARE)
[2023-12-10 13:19] LABS: Urine Culture Indicated YES
[2023-12-10] MEDS: ACETAMINOPHEN 500 MG TABLET 1000 MG PO (13:49)
== END 2023-12-10 15:50 | disposition home or self-care (01) ==
PROVIDERS: Admitting Provider Midwife; Visit Provider Midwife
DX: O26.893 Other specified pregnancy related conditions, third trimester (principal); R10.9 Unspecified abdominal pain; Z3A.37 37 weeks gestation of pregnancy
CPT/HCPCS: 59025; 81001; 87086; G0378; G0379

== ENCOUNTER 2023-12-16 08:56 | Outpatient (OUT) | payer OTHER, SELFPAY ==
--- NOTE | 2023-12-16 14:49 | PC.NURSE ---
1400- Pt arrived for partners visit. Pt education and surgical soap given. Handouts educated and given to patient. Consents obtained. Pt discharged at 1445.
== END 2023-12-16 14:45 | disposition home or self-care (01) ==
LOC: FBCO 08:58
PROVIDERS: Visit Provider Obstetrics & Gynecology
DX: Z34.93 Encounter for supervision of normal pregnancy, unspecified, third trimester (principal)

== ENCOUNTER 2023-12-19 06:46 | Observation (INO) | payer OTHER, SELFPAY ==
[2023-12-19 07:02] VITALS: BP 126/69; PULSE 108
[2023-12-19 08:38] LABS: Bilirubin Urine NEGATIVE (NEGATIVE); Blood Urine NEGATIVE (NEGATIVE); Clarity Urine CLEAR (CLEAR); Color Urine LT. YELLOW (YELLOW); Glucose Urine UA NEGATIVE (NEGATIVE); Ketones Urine NEGATIVE (NEGATIVE); Leukocyte Esterase Urine SMALL (NEGATIVE); Nitrite Urine NEGATIVE (NEGATIVE); Protein Urine NEGATIVE (NEG/TRACE); Urobilinogen Urine 0.2 EU/dL (0.2-1.0); pH Urine 6.5 (5.0-9.0)
[2023-12-19 08:51] LABS: Urine Microscopic Indicated YES
[2023-12-19 08:55] LABS: Bacteria Urine MODERATE #/HPF (NONE SEEN); Mucus Urine NONE SEEN (NONE SEEN); RBC Urine NONE SEEN #/HPF (0-2)
[2023-12-19 08:56] LABS: Cast Seen? NONE SEEN #/LPF (NONE SEEN); Crystals Seen? None Seen #/HPF (None Seen); Squamous Epithelial Cell Urine MODERATE #/LPF (NONE/RARE); Urine Culture Indicated YES
--- NOTE | 2023-12-19 09:02 | US_ITS ---
[address] [address] Patient Name: JOVON LOPEZ MRN: [id number] date: 1995 Sex: F Assigned Patient Location: [facility] Current Patient Location: Accession/Order Number: [id number] Exam Date: 12/19/2023 09:20 Report Date: 12/19/2023 14:28 At the request of: NASH VO Procedure: US OB BPP w non-stress ULTRASOUND BIOPHYSICAL PROFILE CLINICAL HISTORY: Pain COMPARISON: 10/16/2023 TECHNIQUE: Grayscale imaging of the pelvis is performed FINDINGS: There is a single living intrauterine gestation, with a gestation age of 38 weeks 2 days by LMP. presentation is cephalic. heart rate is 131. No anomalies are seen. The placenta is anterior marginal. Amniotic fluid index: 13.7 Biophysical profile: 8 out of 8. (2 breathing, 2 activity, 2 tone, 2 LATRELL) US/US OB BPP w non-stress IMPRESSION: Biophysical profile scoring 8 out of 8. Electronically authenticated by: SURY MANTILLA Date: 12/19/2023 14:28
--- NOTE | 2023-12-19 09:02 | US_ITS ---
[place] [id number] Patient Name: JOVON LOPEZ MRN: [id number] date: 1995 Sex: F Assigned Patient Location: [facility] Current Patient Location: Accession/Order Number: [id number] Exam Date: 12/19/2023 09:20 Report Date: 12/19/2023 14:28 At the request of: NASH VO Procedure: US OB placenta ULTRASOUND BIOPHYSICAL PROFILE CLINICAL HISTORY: Pain COMPARISON: 10/16/2023 TECHNIQUE: Grayscale imaging of the pelvis is performed FINDINGS: There is a single living intrauterine gestation, with a gestation age of 38 weeks 2 days by LMP. presentation is cephalic. heart rate is 131. No anomalies are seen. The placenta is anterior marginal. Amniotic fluid index: 13.7 Biophysical profile: 8 out of 8. (2 breathing, 2 activity, 2 tone, 2 LATRELL) US/US OB placenta IMPRESSION: Biophysical profile scoring 8 out of 8. Electronically authenticated by: SURY MANTILLA Date: 12/19/2023 14:28
[2023-12-19] MEDS: ACETAMINOPHEN 500 MG TABLET 1000 MG PO (09:15)
== END 2023-12-19 10:02 | disposition home or self-care (01) ==
LOC: FBC 12-23 15:07
PROVIDERS: Admitting Provider Midwife; Visit Provider Midwife
DX: O26.893 Other specified pregnancy related conditions, third trimester (principal); R10.9 Unspecified abdominal pain; Z3A.38 38 weeks gestation of pregnancy
CPT/HCPCS: 36415; 59025; 76815; 76818; 81001; 87086; G0378; G0379

== ENCOUNTER 2023-12-23 07:02 | Inpatient (IN) | payer OTHER, SELFPAY ==
[2023-12-23] VITALS (26 sets, daily range): BP systolic 96–123; BP diastolic 56–80; PULSE 71–93; TEMP 36.2–36.8; O2SAT 96–98
--- OUTSIDE RECORDS SUMMARY | 2023-12-23 07:08 | XMS_ITS | CCD ---
Author Organization [facility] Care Team Providers Care Drophammer Operator Name Role Phone BRIGITTE BA Marvel Attending [...] reactions to drug 9 Other (See Comments) [facility] (4 sources) Morphine; Translations: [MORPHINE] Drug Allergy 1 Hives [facility] Repository (2 sources) Penicillin Drug Allergy 0 [facility] (3 sources) Morphine Drug Allergy 2 Hives [facility] (1 source) Penicillins Propensity to adverse reactions to drug 9 Unknown [facility] (1 source) Morphine Drug Allergy 1 [facility] Repository (2 sources) Amoxicillin [facility] Other (1 source) Amoxicillin Drug Allergy 4 [facility] Repository (1 source) Morphine Drug Allergy 4 [facility] Repository (1 source) Penicillins Drug allergy (disorder) 3 [facility] Repository Medications Current Medications Medication Drug [...] mg docusate sodium 50 mg / sennosides, longterm 8.6 mg oral tablet (1 source) Start: [...] infection (1 source) Acute gastroenteropathy due to [place] agent; Translations: [ACUTE GASTROENTROPATHY NORWALK AGNT] Onset: [...] , with heart rate of 126 bpm. [place]-rump length measures 0.95 cm, yielding an estimated [...] Available HCG,Quantitativeon 3 HCG,Quantitative 25.40 m[iU]/mL Normal [facility] Comment on above: Result Comment: Appr oximate Approximate hCG Gestational Age Range (mIU/ml) (weeks) 0.2-1 5-50 1-2 50-500 2-3 100-5,000 3-4 500-10,000 4-5 1,000-50,000 5-6 10,000-100,000 6-8 15,000-200,000 8-12 10,000-100,000 PERFORMED BY: [place] [address] PATHOLOGIST SPRING FORMER ARJUN HASTINGS M.D. Performed By: #### H CGQNT #### [facility] [address] [place], [place] [id number] [place] HCG,Urineon 04-21-2023 Beta HCG ( test) Ql (U) Negative Normal [facility] Comment on above: Order Comment: Name Collection Type:: Clean-Voided Midstream Result Comment: PERF ORMED BY: [place] [address] PATHOLOGIST SPRING FORMER ARJUN HASTINGS M.D. Performed By: #### U A, UHCG #### [facility] [address] [place], [place] [id number] [place] Urinalysison 04-21-2023 Appearance (U) Clear Normal Clear [facility] Comment on above: Order Comment: Name Collection Type:: Clean-Voided Midstream Performed By: #### U A, UHCG #### [facility] [address] [place], [place] [id number] [place] Bilirubin,Urine Negative Normal Negative [facility] Comment on above: Order Comment: Name Collection Type:: Clean-Voided Midstream Performed By: #### U A, UHCG #### [place] [id number] [place] Color (U) Yellow Normal Yellow [facility] Comment on above: Order Comment: Name Collection Type:: Clean-Voided Midstream Performed By: #### U A, UHCG #### [facility] [address] [place], [place] [id number] [place] Glucose Ql (U) Normal Normal Normal [facility] Comment on above: Order Comment: Name Collection Type:: Clean-Voided Midstream Performed By: #### U A, UHCG #### [address] Ketones Ql (U) Negative Normal Negative [facility] Comment on above: Order Comment: Name Collection Type:: Clean-Voided Midstream Performed By: #### U A, UHCG #### [address] Leukocyte esterase Test strip Ql (U) Negative Normal Negative [facility] Comment on above: Order Comment: Name Collection Type:: Clean-Voided Midstream Performed By: #### U A, UHCG #### [address] Nitrite,Urine Negative Normal Negative [facility] Comment on above: Order Comment: Name Collection Type:: Clean-Voided Midstream Performed By: #### U A, UHCG #### [address] Occult Blood,Urine Negative Normal Negative [facility] Comment on above: Order Comment: Name Collection Type:: Clean-Voided Midstream Performed By: #### U A, UHCG #### [address] pH (U) 7.5 [pH] Normal 5.0-9.0 [facility] Comment on above: Order Comment: Name Collection Type:: Clean-Voided Midstream Performed By: #### U A, UHCG #### [address] Protein,Urine Negative Normal Negative [facility] Comment on above: Order Comment: Name Collection Type:: Clean-Voided Midstream Performed By: #### U A, UHCG #### [address] Specificy [place],Urine 1.011 Normal 1.001-1.030 [facility] Comment on above: Order Comment: Name Collection Type:: Clean-Voided Midstream Performed By: #### U A, UHCG #### [facility] [address] Urobilinogen,Urine Normal Normal Normal [facility] Comment on above: Order Comment: Name Collection Type:: Clean-Voided Midstream Performed By: #### U A, [facility] #### [facility] [address] [place] [id number] [facility] AMYLASEon 10-19-2022 Amylase [Catalytic activity/Vol] 42 U/L Normal 25-115 [facility] Comment on above: Performed By: #### L IPA, ROSS, CMP #### [facility] [address] [address] [address] Radha Garcia CBC AUTO DIFFon 10-19-2022 BASO # 0.0 103/ul Normal 0.0-0.1 [facility] Comment on above: Performed By: #### C BC #### [facility] [address] [address] [address] Radha Garcia Basophils/100 WBC (Bld) 0.4 % Normal 0.2-2.0 [facility] Comment on above: Performed By: #### C BC #### [facility] [address] [address] [address] Radha Garcia EO # 0.1 103/ul Normal 0.0-0.7 [facility] Comment on above: Performed By: #### C BC #### [facility] [address] [address] [address] Radha Garcia Eosinophils/100 WBC (Bld) 2.9 % Normal 0.9-7.0 [facility] Comment on above: Performed By: #### C BC #### [facility] [address] [address] [address] Radha Garcia Erythrocyte distribution width (RBC) [Ratio] 12.6 % Normal 11.0-15.0 [facility] Comment on above: Performed By: #### C BC #### [facility] [address] [place] [address] Dr. Radha Garcia Hematocrit (Bld) [Volume fraction] 41.9 % Normal 36.0-48.0 [facility] Comment on above: Performed By: #### C BC #### [facility] [address] [address] [address] Radha Garcia Hemoglobin (Bld) [Mass/Vol] 13.8 g/dL Normal 12.0-16.0 [facility] Comment on above: Performed By: #### C BC #### [facility] [address] [address] [address] Radha Garcia IG # 0.01 10e3/ul Normal 0.00-0.03 [facility] Comment on above: Performed By: #### C BC #### [facility] [address] [place] [address] Dr. Radha Garcia IG % 0.2 % Normal 0.0-0.5 [facility] Comment on above: Performed By: #### C BC #### [facility] [address] [place] [address] Dr. Radha Garcia LYMPH # 1.2 103/ul Normal 1.2-3.8 [facility] Comment on above: Performed By: #### C BC #### [facility] [address] [place] [address] Dr. Radha Garcia Lymphocytes/100 WBC (Bld) 25.6 % Normal 20.5-60.0 [facility] Comment on above: Performed By: #### C BC #### [facility] [address] [place] [address] Dr. Radha Garcia MANUAL DIFF REQ NO Normal [facility] Comment on above: Performed By: #### C BC #### [facility] [address] [place] [address] Dr. Radha Garcia MCH (RBC) [Entitic mass] 29.9 pg Normal 26.7-34.0 [facility] Comment on above: Performed By: #### C BC #### [facility] [address] [place] [address] Dr. Radha Garcia MCHC (RBC) [Mass/Vol] 32.9 g/dL Normal 29.9-35.2 [facility] Comment on above: Performed By: #### C BC #### [facility] [address] [address] [address] Radha Garcia MCV (RBC) [Entitic vol] 90.9 fL Normal 81.0-99.0 [facility] Comment on above: Performed By: #### C BC #### [facility] [address] [address] [address] Radha Garcia MONO # 0.3 103/ul Normal 0.3-0.8 [facility] Comment on above: Performed By: #### C BC #### [facility] [address] [place] [address] Dr. Radha Garcia Monocytes/100 WBC (Bld) 6.5 % Normal 1.7-12.0 [facility] Comment on above: Performed By: #### C BC #### [facility] [address] [place] [address] Dr. Radha Garcia NEUT # 2.9 103/ul Normal 1.4-6.5 [facility] Comment on above: Performed By: #### C BC #### [facility] [address] [place] [address] Dr. Radha Garcia Neutrophils/100 WBC (Bld) 64.4 % Normal 43.0-75.0 [facility] Comment on above: Performed By: #### C BC #### [facility] [address] [place] [address] Dr. Radha Garcia Platelet mean volume (Bld) [Entitic vol] 10.6 fL Normal 9.5-13.5 [facility] Comment on above: Performed By: #### C BC #### [facility] [address] [place] [address] Dr. Radha Garcia PLT 246 103/ul Normal 150-450 [facility] Comment on above: Performed By: #### C BC #### [facility] [address] [place] [address] Dr. Radha Garcia RBC 4.61 106/ul Normal 4.20-5.40 [facility] Comment on above: Performed By: #### C BC #### [facility] [address] [address] [address] Radha Garcia WBC 4.5 103/ul Normal 4.0-11.0 [facility] Comment on above: Performed By: #### C BC #### [facility] [address] [place] [address] Dr. Radha Garcia GI PANEL (PCR)on 10-19-2022 Adenovirus F 40/41 Not detected Normal NOT DETECTED [facility] Comment on above: Performed By: #### G IPANEL #### [facility] [address] [place] [address] Dr. Radha Garcia Astrovirus Not detected Normal NOT DETECTED [facility] Comment on above: Performed By: #### G IPANEL #### [facility] [address] [place] [address] Dr. Radha Pike. Diff toxin A/B Not detected Normal NOT DETECTED The [facility] Comment on above: Performed By: #### G IPANEL #### [facility] [address] [place] [address] Dr. Radha Garcia Campylobacter Not detected Normal NOT DETECTED [facility] Comment on above: Performed By: #### G IPANEL #### [facility] [address] [place] [address] Dr. Radha Garcia Cryptosporidium Not detected Normal NOT DETECTED [facility] Comment on above: Performed By: #### G IPANEL #### [facility] [address] [place] [address] Dr. Radha Garcia Cyclos. Cayetanensis Not detected Normal NOT DETECTED The [facility] Comment on above: Performed By: #### G IPANEL #### [facility] [address] [place] [address] Dr. Radha Garcia E. Coli O157 Not Applicable Normal Not Applicable [facility] Comment on above: Performed By: #### G IPANEL #### [facility] [address] [place] [address] Dr. Radha Garcia E. histolytica Not detected Normal NOT DETECTED [facility] Comment on above: Performed By: #### G IPANEL #### [facility] [address] [place] [address] Dr. Radha Garcia EAEC Not detected Normal NOT DETECTED [facility] Comment on above: Performed By: #### G IPANEL #### [facility] [address] [place] [address] Dr. Radha Garcia EIEC Not detected Normal NOT DETECTED [facility] Comment on above: Performed By: #### G IPANEL #### [facility] [address] [place] [address] Dr. Radha Garcia EPEC Not detected Normal NOT DETECTED [facility] Comment on above: Performed By: #### G IPANEL #### [facility] [address] [place] [address] Dr. Radha Garcia ETEC Not detected Normal NOT DETECTED [facility] Comment on above: Performed By: #### G IPANEL #### [facility] [address] [place] [address] Dr. Radha Valdez Lamblia Not detected Normal NOT DETECTED [facility] Comment on above: Performed By: #### G IPANEL #### [facility] [address] [place] [address] Dr. Radha SANTANA CONTROLS PASSED Normal [facility] Comment on above: Performed By: #### G IPANEL #### [facility] [address] [place] [address] Dr. Radha MALIK GALI HEADER GI PANEL BACTERIA Normal [facility] Comment on above: Performed By: #### G IPANEL #### [facility] [address] [place] [address] Dr. Radha LOUIS ECOLI GI PANEL DIARRHEAGENIC E.COLI / SHIGELLA Normal [facility] Comment on above: Performed By: #### G IPANEL #### [facility] [address] [place] [address] Dr. Radha LOUIS INFO SEE BELOW Normal [facility] Comment on above: Result Comment: EAEC - Enteroaggregative E. Coli EPEC- Enteropathogenic E. Coli ETEC- Enterotoxigenic E. Coli lt/st STEC- Shigella-like toxin-producing E. Coli stx1/stx2 EIEC- Shigella/Enteroinvasive E. Coli Performed By: #### G IPANEL #### [facility] [address] [place] [address] Dr. Radha LOUIS PARASITES GI PANEL PARASITES Normal [facility] Comment on above: Performed By: #### G IPANEL #### [facility] [address] [address] [address] Radha LOUIS VIRUS GI PANEL VIRUSES Normal [facility] Comment on above: Performed By: #### G IPANEL #### [facility] [address] [place] [address] Dr. Radha Garcia Norovirus GI/GII Detected Abnormal NOT DETECTED [facility] Comment on above: Performed By: #### G IPANEL #### [facility] [address] [place] [address] Dr. Radha Garcia P. Shigelloides Not detected Normal NOT DETECTED [facility] Comment on above: Performed By: #### G IPANEL #### [facility] [address] [place] [address] Dr. Radha Garcia Rotavirus A Not detected Normal NOT DETECTED [facility] Comment on above: Performed By: #### G IPANEL #### [facility] [address] [place] [address] Dr. Radha Garcia Salmonella Not detected Normal NOT DETECTED [facility] Comment on above: Performed By: #### G IPANEL #### [facility] [address] [place] [address] Dr. Radha Garcia Sapovirus Not detected Normal NOT DETECTED [facility] Comment on above: Performed By: #### G IPANEL #### [facility] [address] [address] [address] Radha Garcia STEC Not detected Normal NOT DETECTED [facility] Comment on above: Performed By: #### G IPANEL #### [facility] [address] [place] [address] Dr. Radha Garcia Vibrio Not detected Normal NOT DETECTED [facility] Comment on above: Performed By: #### G IPANEL #### [facility] [address] [place] [address] Dr. Radha Garcia Vibrio Cholera Not detected Normal NOT DETECTED [facility] Comment on above: Performed By: #### G IPANEL #### [facility] [address] [place] [address] Dr. Radha Garcia Y. Enterocolitica Not detected Normal NOT DETECTED [facility] Comment on above: Performed By: #### G IPANEL #### [facility] [address] [place] [address] Dr. Radha Garcia LIPASEon 10-19-2022 Lipase [Catalytic activity/Vol] 54.0 U/L Critically low 73.0-393.0 [facility] Comment on above: Performed By: #### L SAMUEL ROSS, CMP #### [facility] [address] [place] [address] Dr. Radha Garcia PROF 14(COMP METB)on 023 Albumin [Mass/Vol] 3.3 g/dL Critically low 3.4-5.0 [facility] Comment on above: Performed By: #### L IPA ROSS, CMP #### [facility] [address] [place] [address] Dr. Radha Garcia Albumin/Globulin [Mass ratio] 1.0 {ratio} Normal [facility] Comment on above: Performed By: #### L IPA ROSS, CMP #### [facility] [address] [place] [address] Dr. Radha Garcia ALP [Catalytic activity/Vol] 58 U/L Normal 46-116 [facility] Comment on above: Performed By: #### L IPA ROSS, CMP #### [facility] [address] [place] [address] Dr. Radha Garcia ALT [Catalytic activity/Vol] 25 U/L Normal 14-59 [facility] Comment on above: Performed By: #### L IPA, ROSS, CMP #### [facility] [address] [place] [address] Dr. Radha Garcia Anion gap [Moles/Vol] 14.5 mmol/L Normal [facility] Comment on above: Performed By: #### L IPA ROSS, CMP #### [facility] [address] [address] [address] Radha Garcia AST [Catalytic activity/Vol] 19 U/L Normal 15-37 [facility] Comment on above: Performed By: #### L IPA, ROSS, CMP #### [facility] [address] [place] [address] Dr. Radha Garcia Bilirubin [Mass/Vol] 0.8 mg/dL Normal 0.2-1.0 [facility] Comment on above: Performed By: #### L IPA ROSS, CMP #### [facility] [address] [address] [address] Radha Garcia Calcium [Mass/Vol] 8.4 mg/dL Critically low 8.5-10.1 Th e [facility] Comment on above: Performed By: #### L IPA ROSS, CMP #### [facility] [address] [place] [address] Dr. Radha Garcia Chloride [Moles/Vol] 107 mmol/L Normal 98-107 [facility] Comment on above: Performed By: #### L IPA ROSS, CMP #### [facility] [address] [place] [address] Dr. Radha Garcia CO2 [Moles/Vol] 25.8 mmol/L Normal 21.0-32.0 [facility] Comment on above: Performed By: #### L IPA ROSS, CMP #### [facility] [address] [place] [address] Dr. Radha Garcia Creatinine [Mass/Vol] 0.78 mg/dL Normal 0.55-1.02 [facility] Comment on above: Performed By: #### L IPA ROSS, CMP #### [facility] [address] [place] [address] Dr. Radha Garcia EGFR-AF SAMOAN >60 Normal >=60 [facility] Comment on above: Performed By: #### L IPA, ROSS, CMP #### [facility] [address] [place] [address] Dr. Radha Garcia EGFR-NON AF SAMOAN >60 Normal >=60 [facility] Comment on above: Performed By: #### L ROSS BAKER, CMP #### [facility] [address] [address] [address] Radha Garcia Globulin (S) [Mass/Vol] 3.2 g/dL Normal [facility] Comment on above: Performed By: #### L ROSS BAKER, CMP #### [facility] [address] [place] [address] Dr. Radha Garcia Glucose [Mass/Vol] 96 mg/dL Normal 74-106 [facility] Comment on above: Performed By: #### L ROSS BAKER, CMP #### [facility] [address] [place] [address] Dr. Radha Garcia Potassium [Moles/Vol] 3.3 mmol/L Critically low 3.5-5.1 [facility] Comment on above: Performed By: #### L ROSS BAKER, CMP #### [facility] [address] [place] [address] Dr. Radha Garcia Protein [Mass/Vol] 6.5 g/dL Normal 6.4-8.2 [facility] Comment on above: Performed By: #### L ROSS BAKER, CMP #### [facility] [address] [place] [address] Dr. Radha Garcia Sodium [Moles/Vol] 144 mmol/L Normal 136-145 [facility] Comment on above: Performed By: #### L ROSS BAKER, CMP #### [facility] [address] [place] [address] Dr. Radha Garcia Urea nitrogen [Mass/Vol] 6.0 mg/dL Critically low 7.0-18.0 [facility] Comment on above: Performed By: #### L ROSS BAKER, CMP #### [facility] [address] [place] [address] Dr. Radha Garcia Urea nitrogen/Creatinine [Mass ratio] 7.7 mg/mg Normal [facility] Comment on above: Performed By: #### L ROSS BAKER, CMP #### [facility] [address] [place] [address] Dr. Radha Garcia 36on 07-16-2022 36 Attempted to call an d schedule an EGD, but mail box is full unable to leave a message. Will mail her a letter. Normal [facility] 36on 06-06-2022 36 ----- Message from Mary Jo Javier MA sent at 05/26/2022 10:02 AM EST ----- For your review! Normal [facility] BETA HCG, QUANTITATIVE FOR E Don 05-25-2022 HCG.beta subunit Qn m[IU]/mL Normal <5.0 [facility] Comment on above: Order Comment: Speci men Type: BLOOD SPECIMEN Ordering Facility: [facility] Address: [address] [place] [address] Result Comment: Neglori wright Performed By: #### 2 4323-8, 3040-3, HCGED, 52360-5 #### [facility] CLIA [id number] [address] [place] [address] [place] CBC W Auto Differential pane l (Bld)on 05-25-2022 Basophils (Bld) [#/Vol] 10*3/uL Normal <0.11 [facility] Comment on above: Order Comment: Speci men Type: BLOOD SPECIMEN Ordering Facility: [facility] Address: [address] [place] [address] Performed By: #### 5 7021-8 #### [facility] CLIA [id number] [address] [place] [address] [place] Basophils/100 WBC (Bld) 0.1 % Normal [facility] Comment on above: Order Comment: Speci men Type: BLOOD SPECIMEN Ordering Facility: [facility] Address: [address] [address] Performed By: #### 5 7021-8 #### [facility] CLIA [id number] [place] Differential cell count method Nom (Bld) Auto Normal [facility] Comment on above: Order Comment: Speci men Type: BLOOD SPECIMEN Ordering Facility: [facility] Address: [address] [address] Performed By: #### 5 7021-8 #### [facility] IA [id number] [address] [place] [address] [place] Eosinophils (Bld) [#/Vol] 0.08 10*3/uL Normal <0.46 [facility] Comment on above: Order Comment: Speci men Type: BLOOD SPECIMEN Ordering Facility: [facility] Address: [address] [address] Performed By: #### 5 7021-8 #### [facility] IA [id number] [address] [place] [address] [facility] Eosinophils/100 WBC (Bld) 1.0 % Normal [facility] Comment on above: Order Comment: Speci men Type: BLOOD SPECIMEN Ordering Facility: [facility] Address: [address] [address] Performed By: #### 5 7021-8 #### [facility] IA [id number] [address] [place] [address] [place] Erythrocyte distribution width (RBC) [Ratio] 12.4 % Normal 11.5-15.0 [facility] Comment on above: Order Comment: Speci men Type: BLOOD SPECIMEN Ordering Facility: [facility] Address: [address] [address] Performed By: #### 5 7021-8 #### [facility] IA [id number] [address] [place] [address] [place] Hematocrit (Bld) [Volume fraction] 43.0 % Normal 36.0-46.0 [facility] Comment on above: Order Comment: Speci men Type: BLOOD SPECIMEN Ordering Facility: [facility] Address: [address] [address] Performed By: #### 5 7021-8 #### [facility] IA [id number] [address] [place] [address] [place] Hemoglobin (Bld) [Mass/Vol] 14.2 g/dL Normal 11.5-15.5 [facility] Comment on above: Order Comment: Speci men Type: BLOOD SPECIMEN Ordering Facility: [facility] Address: [address] [address] Performed By: #### 5 7021-8 #### [facility] CLIA [id number] [address] [place] [address] [place] Immature granulocytes (Bld) [#/Vol] 10*3/uL Normal <0.10 [facility] Comment on above: Order Comment: Speci men Type: BLOOD SPECIMEN Ordering Facility: [facility] Address: [address] [address] Performed By: #### 5 7021-8 #### [facility] IA [id number] [address] [place] [address] [place] Immature granulocytes/100 WBC (Bld) 0.2 % Normal [facility] Comment on above: Order Comment: Speci men Type: BLOOD SPECIMEN Ordering Facility: [facility] Address: [address] [address] Performed By: #### 5 7021-8 #### [facility] IA [id number] [address] [place] [address] [place] Lymphocytes (Bld) [#/Vol] 0.30 10*3/uL Low 1.00-4.00 [facility] Comment on above: Order Comment: Speci men Type: BLOOD SPECIMEN Ordering Facility: [facility] Address: [address] Performed By: #### 5 7021-8 #### [facility] CLIA [id number] [address] [place] [address] [place] Lymphocytes/100 WBC (Bld) 3.6 % Normal [facility] Comment on above: Order Comment: Speci men Type: BLOOD SPECIMEN Ordering Facility: [facility] Address: [address] [address] Performed By: #### 5 7021-8 #### [facility] CLIA [id number] [address] MCH (RBC) [Entitic mass] 28.7 pg Normal 26.0-34.0 [facility] Comment on above: Order Comment: Speci men Type: BLOOD SPECIMEN Ordering Facility: [facility] Address: [address] [address] Performed By: #### 5 7021-8 #### [facility] IA [id number] [address] [place] MCHC (RBC) [Mass/Vol] 33.0 g/dL Normal 30.5-36.0 [facility] Comment on above: Order Comment: Speci men Type: BLOOD SPECIMEN Ordering Facility: [facility] Address: [address] [address] Performed By: #### 5 7021-8 #### [facility] IA [id number] [address] [place] [address] [facility] MCV (RBC) [Entitic vol] 86.9 fL Normal 80.0-100.0 [facility] Comment on above: Order Comment: Speci men Type: BLOOD SPECIMEN Ordering Facility: [facility] Address: [address] [address] Performed By: #### 5 7021-8 #### [facility] IA [id number] [address] [place] [address] OF [facility] Monocytes (Bld) [#/Vol] 0.19 10*3/uL Normal <0.87 [facility] Comment on above: Order Comment: Speci men Type: BLOOD SPECIMEN Ordering Facility: [facility] Address: [address] [address] Performed By: #### 5 7021-8 #### [facility] IA [id number] [address] [place] [address] Monocytes/100 WBC (Bld) 2.3 % Normal [facility] Comment on above: Order Comment: Speci men Type: BLOOD SPECIMEN Ordering Facility: [facility] Address: [address] [address] Performed By: #### 5 7021-8 #### [facility] CLIA [id number] [address] [place] [address] [place] Neutrophils (Bld) [#/Vol] 7.62 10*3/uL High 1.45-7.50 [facility] Comment on above: Order Comment: Speci men Type: BLOOD SPECIMEN Ordering Facility: [facility] Address: [address] [address] Performed By: #### 5 7021-8 #### [facility] CLIA [id number] [address] [place] [address] [place] Neutrophils/100 WBC (Bld) 92.8 % Normal [facility] Comment on above: Order Comment: Speci men Type: BLOOD SPECIMEN Ordering Facility: [facility] Address: [address] [address] Performed By: #### 5 7021-8 #### [facility] IA [id number] [address] [place] [address] [place] Nucleated RBC (Bld) [#/Vol] 10*3/uL Normal <0.01 [facility] Comment on above: Order Comment: Speci men Type: BLOOD SPECIMEN Ordering Facility: [facility] Address: [address] [place] [address] Performed By: #### 5 7021-8 #### [facility] IA [id number] [address] [place] [address] [place] Nucleated RBC/100 WBC (Bld) [Ratio] 0.0 /100 WBC Normal [facility] Comment on above: Order Comment: Speci men Type: BLOOD SPECIMEN Ordering Facility: [facility] Address: [address] [place] [address] Performed By: #### 5 7021-8 #### [facility] IA [id number] [address] [place] [address] [place] Platelet mean volume (Bld) [Entitic vol] 10.5 fL Normal 9.0-12.7 [facility] Comment on above: Order Comment: Speci men Type: BLOOD SPECIMEN Ordering Facility: [facility] Address: [address] [address] Performed By: #### 5 7021-8 #### [facility] IA [id number] [address] [place] [address] [place] Platelets (Bld) [#/Vol] 264 10*3/uL Normal 150-400 [facility] Comment on above: Order Comment: Speci men Type: BLOOD SPECIMEN Ordering Facility: [facility] Address: [address] [address] Performed By: #### 5 7021-8 #### [facility] CLIA [id number] [address] [place] [address] [place] RBC (Bld) [#/Vol] 4.95 10*6/uL Normal 3.90-5.20 [facility] Comment on above: Order Comment: Speci men Type: BLOOD SPECIMEN Ordering Facility: [facility] Address: [address] [address] Performed By: #### 5 7021-8 #### [facility] IA [id number] [address] [place] [address] [place] WBC (Bld) [#/Vol] 8.22 10*3/uL Normal 3.70-11.00 [facility] Comment on above: Order Comment: Speci men Type: BLOOD SPECIMEN Ordering Facility: [facility] Address: [address] [address] Performed By: #### 5 7021-8 #### [facility] CLIA [id number] [address] [place] [address] [facility] Comprehensive metabolic 2000 panelon 05-25-2022 Albumin [Mass/Vol] 4.3 g/dL Normal 3.9-4.9 [facility] Comment on above: Order Comment: Speci men Type: BLOOD SPECIMEN Ordering Facility: [facility] Address: [address] [place] [address] Performed By: #### 2 4323-8, 3040-3, HCGED, #### [facility] CLIA [id number] [address] [place] [address] [place] ALP [Catalytic activity/Vol] 74 U/L Normal 34-123 [facility] Comment on above: Order Comment: Speci men Type: BLOOD SPECIMEN Ordering Facility: [facility] Address: [address] [place] [address] Performed By: #### 2 4323-8, 3040-3, HCGED, #### [facility] CLIA [id number] [address] [place] [address] [place] ALT [Catalytic activity/Vol] 23 U/L Normal 7-38 [facility] Comment on above: Order Comment: Speci men Type: BLOOD SPECIMEN Ordering Facility: [facility] Address: [address] [place] [address] Performed By: #### 2 4323-8, 3040-3, HCGED, #### [facility] CLIA [id number] [address] [place] [address] [place] Anion gap [Moles/Vol] 12 mmol/L Normal 9-18 [facility] Comment on above: Order Comment: Speci men Type: BLOOD SPECIMEN Ordering Facility: [facility] Address: [address] [place] [address] Performed By: #### 2 4323-8, 3040-3, HCGED, #### [facility] CLIA [id number] [address] [place] [address] [place] AST [Catalytic activity/Vol] 15 U/L Normal 13-35 [facility] Comment on above: Order Comment: Speci men Type: BLOOD SPECIMEN Ordering Facility: [facility] Address: [address] [place] [address] Performed By: #### 2 4323-8, 3040-3, HCGED, 00316-4 #### [facility] CLIA [id number] [address] [place] [address] [place] Bilirubin [Mass/Vol] 1.0 mg/dL Normal 0.2-1.3 [facility] Comment on above: Order Comment: Speci men Type: BLOOD SPECIMEN Ordering Facility: [facility] Address: [address] [place] [address] Performed By: #### 2 4323-8, 3040-3, HCGED, #### [facility] CLIA [id number] [address] [place] [address] [place] Calcium [Mass/Vol] 8.8 mg/dL Normal 8.5-10.2 [facility] Comment on above: Order Comment: Speci men Type: BLOOD SPECIMEN Ordering Facility: [facility] Address: [address] [place] [address] Performed By: #### 2 4323-8, 0-3, HCGED, #### [facility] CLIA [id number] [address] [place] [address] [place] Chloride [Moles/Vol] 107 mmol/L High 97-105 [facility] Comment on above: Order Comment: Speci men Type: BLOOD SPECIMEN Ordering Facility: [facility] Address: [address] [place] [address] Performed By: #### 2 4323-8, 3039-3, HCGED, #### [facility] CLIA [id number] [address] [place] [address] [place] CO2 [Moles/Vol] 22 mmol/L Normal 22-30 [facility] Comment on above: Order Comment: Speci men Type: BLOOD SPECIMEN Ordering Facility: [facility] Address: [address] [place], [place] [address] Performed By: #### 2 4323-8, 3040-3, HCGED, #### [facility] CLIA [id number] [address] [place] [address] [place] Creatinine [Mass/Vol] 0.70 mg/dL Normal 0.58-0.96 [facility] Comment on above: Order Comment: Speci men Type: BLOOD SPECIMEN Ordering Facility: [facility] Address: [address] [id number] Performed By: #### 2 4323-8, 3040-3, [facility], 48483-4 #### [facility] CLIA [id number] [address] [place] [address] [place] ESTIMATED GLOMERULAR FILTRATION RATE 123 mL/min/1.73m??? Normal >=60 [facility] Comment on above: Order Comment: Tad vu Type: BLOOD SPECIMEN Ordering Facility: [facility] Address: [address] [place], [place] [address] Result Comment: Hazel mated Glomerular Filtration Rate [...] GFR. Performed By: #### 2 4323-8, 3040-3, [facility], 57082-0 #### [facility] CLIA [id number] [address] [facility] [place] [address] [place] Glucose [Mass/Vol] 97 mg/dL Normal 74-99 [facility] Comment on above: Order Comment: Tad vu Type: BLOOD SPECIMEN Ordering Facility: [facility] Address: [address] [place] [address] Result Comment: The [place] Diabetes Association (ADA) provides guidance for cutoff [...] Standards of Medical Care in Diabetes 2016, [place] [employer] Association. Diabetes Care. 2016.39(Suppl 1). Performed By: #### 2 4323-8, 3040-3, HCGED, #### [facility] CLIA [id number] [address] [place] [address] [place] Potassium [Moles/Vol] 3.9 mmol/L Normal 3.7-5.1 [facility] Comment on above: Order Comment: Speci men Type: BLOOD SPECIMEN Ordering Facility: [facility] Address: [address] [place] [address] Performed By: #### 2 4323-8, 3040-3, HCGED, #### [facility] CLIA [id number] [address] [place] [address] [place] Protein [Mass/Vol] 6.9 g/dL Normal 6.3-8.0 [facility] Comment on above: Order Comment: Speci men Type: BLOOD SPECIMEN Ordering Facility: [facility] Address: [address] [place] [address] Performed By: #### 2 4323-8, 3040-3, HCGED, #### [facility] CLIA [id number] [address] [place] [address] [place] Sodium [Moles/Vol] 141 mmol/L Normal 136-144 [facility] Comment on above: Order Comment: Speci men Type: BLOOD SPECIMEN Ordering Facility: [facility] Address: [address] [place] [address] Performed By: #### 2 4323-8, 3040-3, HCGED, #### [facility] CLIA [id number] [address] [place] [address] [place] Urea nitrogen [Mass/Vol] 13 mg/dL Normal 7-21 [facility] Comment on above: Order Comment: Speci men Type: BLOOD SPECIMEN Ordering Facility: [facility] Address: [address] [place] [address] Performed By: #### 2 4323-8, 3040-3, HCGED, 39738-5 #### [facility] CLIA [id number] [address] [facility] [place] [address] [place] ECG COMPLETEon 05-25-2022 ECG COMPLETE Ventricular Rate : 9 1 BPM Atrial Rate : 92 BPM P-R Interval : 150 ms QRS Duration : 85 ms Q-T Interval : 341 ms QTC Calculation(Bazett) : 420 ms Calculated P Spring : 33 degrees Calculated R Spring : 21 degrees Calculated T Spring : 24 degrees Sinus rhythm Low voltage, precordial leads Otherwise Normal ECG *SEE EPIC NOTE FOR INTERPRETATION Confirmed by KHADAR LUNA MD ([id number]), editor trade journal BE TORRES ([id number]) on 05/26/2022 1:50:52 PM NAME : JOVON LOPEZ PID : [id number] : 1995 Gender : Female Race : ORD : [id number] Procedure Date : May 24 2022 23:05:41 Edit Date : May 26 2022 13:50:57 Diagnosis: Sinus rhythm Low voltage, precordial leads Otherwise Normal ECG *SEE EPIC NOTE FOR INTERPRETATION Confirmed by KHADAR LUNA MD ([id number]), editor trade journal BE TORRES ([id number]) on 05/26/2022 1:50:52 PM Test Reason : Chest Pain Location : 302 : ED AVED-16 Overread By : KHADAR LUNA MD Edited By : BE TORRES Referred By : , Acquired by : [id number], [facility] ED NOTEon 05-25-2022 ED NOTE HNO ID: [id number] Author: Diamond Plata RN Service: Nursing Author [...] ED in no acute distress. DIAMOND PLATA [facility] [phone] [facility] ED PROV NOTEon 05-25-2022 ED PROV NOTE HNO ID: [id number] Author: Khadar Luna DO Service: Emergency Medicine [...] which was unremarkable. She followed up with young adult librarian yesterday, was told that her symptoms may [...] Clinical Impr (more content not included)... Normal [facility] Lipase SerPl-cCncon 05-25-20 Lipase [Catalytic activity/Vol] 15 U/L Low 16-61 [facility] Comment on above: Order Comment: Speci men Type: BLOOD SPECIMEN Ordering Facility: [facility] Address: [address] [place] [address] Performed By: #### 2 4323-8, 3040-3, HCGED, 75033-8 #### [facility] CLIA [id number] [address] [place] [address] [place] Magnesium SerPl-mCncon 05-25 Magnesium [Mass/Vol] 1.9 mg/dL Normal 1.7-2.3 [facility] Comment on above: Order Comment: Speci men Type: BLOOD SPECIMEN Ordering Facility: [facility] Address: [address] [place] [address] Performed By: #### 2 4323-8, 3040-3, HCGED, #### [facility] CLIA [id number] [address] [place] [address] [place] Urinalysis complete panel (U )on 05-25-2022 Bilirubin Ql (U) Negative Normal Negative [facility] Comment on above: Order Comment: Speci men Type: URINE SPECIMEN Ordering Facility: [facility] Address: [address] [place] [address] Performed By: #### 2 4356-8 #### [facility] CLIA [id number] [address] [place] [address] [place] Clarity (Unsp spec) Clear Normal Clear [facility] Comment on above: Order Comment: Speci men Type: URINE SPECIMEN Ordering Facility: [facility] Address: [address] [place] [address] Performed By: #### 2 4356-8 #### [facility] CLIA [id number] [address] [place] [address] [place] Color (U) Yellow Normal Yellow [facility] Comment on above: Order Comment: Speci men Type: URINE SPECIMEN Ordering Facility: [facility] Address: [address] [address] Performed By: #### 2 4356-8 #### [facility] IA [id number] [address] [place] [address] [place] Epithelial cells LM.HPF (Urine sed) [#/Area] Few Normal [facility] Comment on above: Order Comment: Speci men Type: URINE SPECIMEN Ordering Facility: [facility] Address: [address] [place] [address] Performed By: #### 2 4356-8 #### [facility] IA [id number] [address] [place] [address] [place] Glucose Test strip (U) [Mass/Vol] Negative Normal Negative [facility] Comment on above: Order Comment: Speci men Type: URINE SPECIMEN Ordering Facility: [facility] Address: [address] [place] [address] Performed By: #### 2 4356-8 #### [facility] IA [id number] [address] [place] [address] [place] Hemoglobin Ql (U) Negative Normal Negative [facility] Comment on above: Order Comment: Speci men Type: URINE SPECIMEN Ordering Facility: [facility] Address: [address] [place] [address] Performed By: #### 2 4356-8 #### [facility] IA [id number] [address] [place] [address] [place] Ketones Ql (U) 3+ Abnormal Trace, Negative [facility] Comment on above: Order Comment: Speci men Type: URINE SPECIMEN Ordering Facility: [facility] Address: [address] [place] [address] Performed By: #### 2 4356-8 #### [facility] IA [id number] [address] [place] [address] [place] Leukocyte esterase Test strip Ql (U) 1+ Abnormal Negative [facility] Comment on above: Order Comment: Speci men Type: URINE SPECIMEN Ordering Facility: [facility] Address: [address] [address] Performed By: #### 2 4356-8 #### [facility] IA [id number] [address] [place] [address] [place] Nitrite Ql (U) Negative Normal Negative [facility] Comment on above: Order Comment: Speci men Type: URINE SPECIMEN Ordering Facility: [facility] Address: [address] [address] Performed By: #### 2 4356-8 #### [facility] IA [id number] [address] [place] [address] [place] pH (U) 5.5 [pH] Normal 5.0-8.0 [facility] Comment on above: Order Comment: Speci men Type: URINE SPECIMEN Ordering Facility: [facility] Address: [address] [address] Performed By: #### 2 4356-8 #### [facility] [id number] [address] [place] [address] [place] Protein (U) [Mass/Vol] Trace Normal Trace , Negative [facility] Comment on above: Order Comment: Speci men Type: URINE SPECIMEN Ordering Facility: [facility] Address: [address] [place] [address] Performed By: #### 2 4356-8 #### [facility] IA [id number] [address] [place] [address] [place] RBC LM.HPF (Urine sed) [#/Area] 0-3 /HPF Normal 0-3 /HPF [facility] Comment on above: Order Comment: Speci men Type: URINE SPECIMEN Ordering Facility: [facility] Address: [address] [place] [address] Performed By: #### 2 4356-8 #### [facility] IA [id number] [address] [place] [address] [place] Specific gravity (U) [Rel density] 1.026 Normal 1.005-1.030 [facility] Comment on above: Order Comment: Speci men Type: URINE SPECIMEN Ordering Facility: [facility] Address: [address] [address] Performed By: #### 2 4356-8 #### [facility] CLIA [id number] [address] [place] [address] [facility] Urobilinogen Ql (U) 0.2 EU/dL Normal 0.2-1.0 EU/dL [facility] Comment on above: Order Comment: Speci men Type: URINE SPECIMEN Ordering Facility: [facility] Address: [address] [place] [address] Performed By: #### 2 4356-8 #### [facility] CLIA [id number] [address] [place] [address] [place] WBC LM.HPF (Urine sed) [#/Area] 6-10 /HPF Abnormal 0-5 /HPF [facility] Comment on above: Order Comment: Speci men Type: URINE SPECIMEN Ordering Facility: [facility] Address: [address] [place] [address] Performed By: #### 2 4356-8 #### [facility] [place] [id number] [place] ED NOTEon 05-24-2022 ED NOTE HNO ID: [id number] Author: Gabby Barone RN Service: ? Author Type: Registered Nurse Type: ED Notes Filed: 05/24/2022 9:23 PM Note Text: Patient presents with nausea, vomiting, diarrhea, and centralized abdominal pain for about 5 months. States she has lost about 45 pounds and is unable to eat or drink without pain. GABBY BARONE [facility] [phone] Normal [facility] Office Visiton 05-23-2022 Follow-up visit [id number] Jovon Lopez 1995 F Date Provider Department Center 05/23/2022 GONZALEZ PUCKETT UTCF GI UTCF No family history on file Level of Service:85866 ID OFFICE/OUTPATIENT ESTABLISHED MOD MDM 30-39 MIN () Reason for Visit and Comments: New Patient [632] Fatigue [46] - Had gallbladder removed in 03/2021, Dr. Powell found and fixed leak 04/2021, pt is having major problems with eating and drinking. Was referred back in 2020 Normal [facility] Automated erythrocytes count in urine sediment (number/area)Ordered By: Reggie Maynard on 05-17-2022 RBC Auto (Urine sed) [#/Area] 5-9 [HPF] 0-4 [facility] Automated leukocytes count i n urine sediment (number/area)Ordered By: Reggie Maynard on 05-17-2022 WBC Auto (Urine sed) [#/Area] 50-100 [HPF] 0-4 [facility] Basophils Auto (Bld) [#/Vol] Ordered By: Reggie Maynard on 05-17-2022 Basophils (Bld) [#/Vol] 0.1 10*3/uL 0.0-0.2 [facility] Basophils/100 WBC Auto (Bld) Ordered By: Reggie Maynard on 05-17-2022 Basophils/100 WBC (Bld) 0.7 % . F [facility] Bilirubin Test strip Ql (U)O rdered By: Reggie Maynard on 05-17-2022 Bilirubin Ql (U) Negative Negative [facility] Body fluid albumin measureme nt (mass/volume)Ordered By: Reggie Maynard on 05-17-2022 Albumin (Body fld) [Mass/Vol] 3.8 g/dL 3.2-5.5 [facility] Color Auto (U)Ordered By: Hadley Maynard on 05-17-2022 Color (U) Yellow Yellow [facility] Creatinine and Glomerular fi ltration rate.predicted panel (S/P/Bld)Ordered By: Reggie Maynard on 05-17-2022 Creatinine [Mass/Vol] 0.64 mg/dL 0.44-1.03 [facility] Direct bilirubin measurement Ordered By: Reggie Maynard on 05-17-2022 Bilirubin.direct [Mass/Vol] 0.1 mg/dL 0.0-0.4 [facility] Eosinophils Auto (Bld) [#/Vo l]Ordered By: Reggie Maynard on 05-17-2022 Eosinophils (Bld) [#/Vol] 0.3 10*3/uL 0.0-0.45 [facility] Eosinophils/100 WBC Auto (Bl d)Ordered By: Reggie Maynard on 05-17-2022 Eosinophils/100 WBC (Bld) 4.2 % . [facility] Erythrocyte distribution wid th Auto (RBC) [Ratio]Ordered By: Reggie Maynard on 05-17-2022 Erythrocyte distribution width (RBC) [Ratio] 13.0 % 11.9-15.3 [facility] Estimated glomerular filtrat ion rate (GFR) non- AmericanOrdered By: Reggie Maynard on 05-17-2022 GFR/1.73 sq M.predicted among non-blacks MDRD (S/P/Bld) [Vol rate/Area] > 60 mL/Min [facility] Globulin Calc (S) [Mass/Vol] Ordered By: Reggie Maynard on 05-17-2022 Globulin (S) [Mass/Vol] 3.3 g/dL F [facility] HCG ( test) IA.rapi d Ql (U)Ordered By: Reggie Maynard on 05-17-2022 HCG ( test) Ql (U) Negative [facility] Hematocrit Auto (Bld) [Volum e fraction]Ordered By: Reggie Maynard on 05-17-2022 Hematocrit (Bld) [Volume fraction] 42.9 % 34.0-46.4 [facility] Hemoglobin [Mass/volume] in BloodOrdered By: Reggie Maynard on 05-17-2022 Hemoglobin (Bld) [Mass/Vol] 14.5 g/dL 11.8-15.4 [facility] Ketones Auto test strip (U) [Mass/Vol]Ordered By: Reggie Maynard on 05-17-2022 Ketones (U) [Mass/Vol] Negative Negative Fi relaCounts include 234 beds at the [facility] Laboratory - Chemistry and C hemistry - challengeOrdered By: Reggie Maynard on 05-17-2022 Lipase [Catalytic activity/Vol] 30.0 U/L 22-51 [facility] Laboratory - UrinalysisOrder ed By: Reggie Maynard on 05-17-2022 Hyaline casts LM Ql (Urine sed) 0-8 [LPF] 0-8 [facility] Leukocytes [#/volume] correc gema for nucleated erythrocytes in Blood by Automated counOrdered By: Reggie Maynard on 05-17-2022 WBC corrected for nucl RBC Auto (Bld) [#/Vol] 7.0 10*3/uL 3.8-11.6 [facility] Lymphocytes Auto (Bld) [#/Vo l]Ordered By: Reggie Maynard on 05-17-2022 Lymphocytes (Bld) [#/Vol] 1.4 10*3/uL 1.00-4.8 [facility] Lymphocytes/100 WBC Auto (Bl d)Ordered By: Reggie Maynard on 05-17-2022 Lymphocytes/100 WBC (Bld) 20.4 % . [facility] MCH Auto (RBC) [Entitic mass ]Ordered By: Reggie Maynard on 05-17-2022 MCH (RBC) [Entitic mass] 29.6 pg 24.7-34.3 [facility] MCHC Auto (RBC) [Mass/Vol]Or dered By: Reggie Maynard on 05-17-2022 MCHC (RBC) [Mass/Vol] 33.7 g/dL 32.0-35.0 [facility] MCV Auto (RBC) [Entitic vol] Ordered By: Reggie Maynard on 05-17-2022 MCV (RBC) [Entitic vol] 87.9 fL 80-100 F [facility] Monocyte distribution width [Entitic volume] in Blood by AutomatedOrdered By: Reggie Maynard on 05-17-2022 Monocyte distribution width Auto (Bld) [Entitic vol] 17.93 % 0.00-20.00 [facility] Monocytes Auto (Bld) [#/Vol] Ordered By: Reggie Maynard on 05-17-2022 Monocytes (Bld) [#/Vol] 0.3 10*3/uL 0.0-0.8 [facility] Monocytes/100 WBC Auto (Bld) Ordered By: Reggie Maynard on 05-17-2022 Monocytes/100 WBC (Bld) 4.1 % . F [facility] Mucus LM Ql (Urine sed)Order ed By: Reggie Maynard on 05-17-2022 Mucus Ql (Urine sed) 2+ [LPF] [facility] Neutrophils Auto (Bld) [#/Vo l]Ordered By: Reggie Maynard on 05-17-2022 Neutrophils (Bld) [#/Vol] 4.9 10*3/uL 1.8-7.7 [facility] Neutrophils/100 WBC Auto (Bl d)Ordered By: Reggie Maynard on 05-17-2022 Neutrophils/100 WBC (Bld) 70.6 % . [facility] Nitrite Test strip Ql (U)Ord ered By: Reggie Maynard on 05-17-2022 Nitrite Ql (U) Negative Negative [facility] No Panel InformationOrdered By: Reggie Maynard on 05-17-2022 Estimated GFR () > 60 mL/Min [facility] Comment on above: GFR estimated refere nce range: According to KDOQI guidelines, <60 ml/min/1.73m2 is sufficient to diagnose a patient with chronic kidney disease. Pharmacy Creatinine Clearance (Chem 111.16 [facility] Nucleated erythrocytes [Pres ence] in Blood by Automated countOrdered By: Reggie Maynard on 05-17-2022 Nucleated RBC Auto Ql (Bld) 0.2 /100{WBC} 0-0.5 [facility] Platelet mean volume Auto (B ld) [Entitic vol]Ordered By: Reggie Maynard on 05-17-2022 Platelet mean volume (Bld) [Entitic vol] 8.7 fL 6.3-10.7 [facility] Platelets Auto (Bld) [#/Vol] Ordered By: Reggie Maynard on 05-17-2022 Platelets (Bld) [#/Vol] 323 10*3/uL 150-450 [facility] Protein Auto test strip (U) [Mass/Vol]Ordered By: Reggie Maynard on 05-17-2022 Protein (U) [Mass/Vol] Negative Negative [facility] Protein [Mass/volume] in Ser um or PlasmaOrdered By: Reggie Maynard on 05-17-2022 Protein [Mass/Vol] 7.1 g/dL 6.1-7.9 [facility] RBC Auto (Bld) [#/Vol]Ordere d By: Reggie Maynard on 05-17-2022 RBC (Bld) [#/Vol] 4.88 10*6/uL 3.60-5.00 [facility] Serum or plasma alanine rangel otransferase measurement without P-5'-P (enzymatic activiOrdered By: Reggie Maynard on 05-17-2022 ALT No additional P-5'-P [Catalytic activity/Vol] 22 U/L 10-60 [facility] Serum or plasma albumin/glob ulin mass ratioOrdered By: Reggie Maynard on 05-17-2022 Albumin/Globulin [Mass ratio] 1.2 {ratio} [facility] Serum or plasma alkaline ely sphatase measurement (enzymatic activity/volume)Ordered By: Reggie Maynard on 05-17-2022 ALP [Catalytic activity/Vol] 56 U/L 32-92 [facility] Serum or plasma anion gap de terminationOrdered By: Reggie Maynard on 05-17-2022 Anion gap [Moles/Vol] 14.6 mmol/L 6.0-15.0 [facility] Serum or plasma aspartate am inotransferase measurement (enzymatic activity/volume)Ordered By: Reggie Maynard on 05-17-2022 AST [Catalytic activity/Vol] 16 U/L 10-42 [facility] Serum or plasma calcium bryon urement (mass/volume)Ordered By: Reggie Maynard on 05-17-2022 Calcium [Mass/Vol] 8.9 mg/dL 8.2-10.2 [facility] Serum or plasma chloride jamir surement (moles/volume)Ordered By: Reggie Maynard on 05-17-2022 Chloride [Moles/Vol] 106 mmol/L 95-114 [facility] Serum or plasma glucose bryon urement (mass/volume)Ordered By: Reggie Maynard on 05-17-2022 Glucose [Mass/Vol] 94 mg/dL 70-100 [facility] Comment on above: ADA recommended refe rence rangeRandom Glucose Reference Range is dependent on time and content of last meal. Glucose of more than 200 mg/dL in a nonstressed, ambulatory subject supports the diagnosis of Diabetes Mellitus. Serum or plasma non-glucuron idated bilirubin measurement (mass/volume)Ordered By: Reggie Maynard on 05-17-2022 Bilirubin.indirect [Mass/Vol] 0.7 mg/dL [facility] Serum or plasma potassium me asurement (moles/volume)Ordered By: Reggie Maynard on 05-17-2022 Potassium [Moles/Vol] 4.3 mmol/L 3.5-5.1 [facility] Serum or plasma sodium measu rement (moles/volume)Ordered By: Reggie Maynard on 05-17-2022 Sodium [Moles/Vol] 138 mmol/L 136-146 [facility] Serum or plasma total biliru bin measurement (mass/volume)Ordered By: Reggie Maynard on 05-17-2022 Bilirubin [Mass/Vol] 0.8 mg/dL 0.3-1.2 [facility] Serum or plasma total carbon dioxide measurement (moles/volume)Ordered By: Reggie Maynard on 05-17-2022 CO2 [Moles/Vol] 21.7 mmol/L 22.0-30.0 [facility] Serum or plasma urea nitroge n measurement (mass/volume)Ordered By: Reggie Maynard 05-17-2022 Urea nitrogen [Mass/Vol] 15 mg/dL 9-23 [facility] Specific gravity Auto test s trip (U) [Rel density]Ordered By: Reggie Maynard 05-17-2022 Specific gravity (U) [Rel density] 1.028 1.001-1.030 [facility] Squamous epithelial cells de tection in urine sediment by light microscopyOrdered By: Reggie Maynard on 05-17-2022 Epithelial cells.squamous LM Ql (Urine sed) 3-4 [HPF] 0-2 [facility] Urine bacteria detection by automated methodOrdered By: Reggie Maynard on 05-17-2022 Bacteria Auto Ql (U) None seen None Seen [facility] Urine clarity by refractomet ry automatedOrdered By: Reggie Maynard on 05-17-2022 Clarity Refractometry automated (U) Clear Clear [facility] Urine glucose measurement by automated test strip (mass/volume)Ordered By: Reggie Maynard on 05-17-2022 Glucose Auto test strip (U) [Mass/Vol] Normal mg/dL Normal [facility] Urine hemoglobin detection b y automated test stripOrdered By: Reggielisa Maynard on 05-17-2022 Hemoglobin Auto test strip Ql (U) Negative Negative [facility] Urine leukocyte esterase det ection by automated test stripOrdered By: Reggie Aleyda on 05-17-2022 Leukocyte esterase Auto test strip Ql (U) 3+ Negative [facility] Urine sediment renal epithel ial cell count by microscopy (number/high power field)Ordered By: Reggie Maynard on 05-17-2022 Epithelial cells.renal LM.HPF (Urine sed) [#/Area] None seen [HPF] 0-1 [facility] Urobilinogen Auto test strip (U) [Mass/Vol]Ordered By: Reggie Maynard on 05-17-2022 Urobilinogen (U) [Mass/Vol] Normal mg/dL Normal [facility] WBC Auto (Bld) [#/Vol]Ordere d By: Reggie Maynard on 05-17-2022 WBC (Bld) [#/Vol] 7.0 10*3/uL 3.8-11.6 [facility] pH Auto test strip (U)Ordere d By: Reggie Maynard on 05-17-2022 pH (U) 5.5 [pH] 5.0-9.0 [facility] AMYLASEon 05-01-2022 Amylase [Catalytic activity/Vol] 61 U/L Normal 25-115 [facility] Comment on above: Performed By: #### L IPA, CMP, ROSS #### [facility] [address] [address] [address] Radha Garcia CBC AUTO DIFFon 05-01-2022 BASO # 0.0 103/ul Normal 0.0-0.1 [facility] Comment on above: Performed By: #### C BC #### [facility] [address] [address] [address] Radha Garcia Basophils/100 WBC (Bld) 0.4 % Normal 0.2-2.0 [facility] Comment on above: Performed By: #### C BC #### [facility] [address] [place] [address] Dr. Radha Garcia EO # 0.2 103/ul Normal 0.0-0.7 [facility] Comment on above: Performed By: #### C BC #### [facility] [address] [place] [address] Dr. Radha Garcia Eosinophils/100 WBC (Bld) 3.0 % Normal 0.9-7.0 [facility] Comment on above: Performed By: #### C BC #### [facility] [address] [place] [address] Dr. Radha Garcia Erythrocyte distribution width (RBC) [Ratio] 12.4 % Normal 11.0-15.0 [facility] Comment on above: Performed By: #### C BC #### [facility] [address] [place] [address] Dr. Radha Garcia Hematocrit (Bld) [Volume fraction] 40.5 % Normal 36.0-48.0 [facility] Comment on above: Performed By: #### C BC #### [facility] [address] [place] [address] Dr. Radha Garcia Hemoglobin (Bld) [Mass/Vol] 13.7 g/dL Normal 12.0-16.0 [facility] Comment on above: Performed By: #### C BC #### [facility] [address] [place] [address] Dr. Radha Garcia IG # 0.01 10e3/ul Normal 0.00-0.03 [facility] Comment on above: Performed By: #### C BC #### [facility] [address] [place] [address] Dr. Radha Garcia IG % 0.1 % Normal 0.0-0.5 [facility] Comment on above: Performed By: #### C BC #### [facility] [address] [place] [address] Dr. Radha Garcia LYMPH # 2.1 103/ul Normal 1.2-3.8 [facility] Comment on above: Performed By: #### C BC #### [facility] [address] [place] [address] Dr. Radha Garcia Lymphocytes/100 WBC (Bld) 30.7 % Normal 20.5-60.0 [facility] Comment on above: Performed By: #### C BC #### [facility] [address] [place] [address] Dr. Radha Garcia MANUAL DIFF REQ NO Normal [facility] Comment on above: Performed By: #### C BC #### [facility] [address] [place] [address] Dr. Radha Garcia MCH (RBC) [Entitic mass] 29.9 pg Normal 26.7-34.0 [facility] Comment on above: Performed By: #### C BC #### [facility] [address] [place] [address] Dr. Radha Garcia MCHC (RBC) [Mass/Vol] 33.8 g/dL Normal 29.9-35.2 [facility] Comment on above: Performed By: #### C BC #### [facility] [address] [place] [address] Dr. Radha Garcia MCV (RBC) [Entitic vol] 88.4 fL Normal 81.0-99.0 [facility] Comment on above: Performed By: #### C BC #### [facility] [address] [place] [address] Dr. Radha Garcia MONO # 0.5 103/ul Normal 0.3-0.8 [facility] Comment on above: Performed By: #### C BC #### [facility] [address] [place] [address] Dr. Radha Garcia Monocytes/100 WBC (Bld) 6.6 % Normal 1.7-12.0 [facility] Comment on above: Performed By: #### C BC #### [facility] [address] [place] [address] Dr. Radha Garcia NEUT # 4.1 103/ul Normal 1.4-6.5 [facility] Comment on above: Performed By: #### C BC #### [facility] [address] [place] [address] Dr. Radha Garcia Neutrophils/100 WBC (Bld) 59.2 % Normal 43.0-75.0 [facility] Comment on above: Performed By: #### C BC #### [facility] [address] [place] [address] Dr. Radha Garcia Platelet mean volume (Bld) [Entitic vol] 10.6 fL Normal 9.5-13.5 [facility] Comment on above: Performed By: #### C BC #### [facility] [address] [place] [address] Dr. Radha Garcia PLT 263 103/ul Normal 150-450 [facility] Comment on above: Performed By: #### C BC #### [facility] [address] [place] [address] Dr. Radha Garcia RBC 4.58 106/ul Normal 4.20-5.40 [facility] Comment on above: Performed By: #### C BC #### [facility] [address] [place] [address] Dr. Radha Garcia WBC 6.9 103/ul Normal 4.0-11.0 [facility] Comment on above: Performed By: #### C BC #### [facility] [address] [place] [address] ABD/PELV W CONon [...] RAFA KAPLAN Date: 2022-05-01 03:30 Normal [facility] LIPASEon 05-01-2022 Lipase [Catalytic activity/Vol] 63.0 U/L Critically low 73.0-393.0 [facility] Comment on above: Performed By: #### L IPA, CMP, ROSS #### [facility] [address] [address] [address] Radha Garcia PREG HCG QUALon 05-01-2022 , QUAL Negative Normal NEGATIVE [facility] Comment on above: Performed By: #### C BC #### [facility] [address] [place] [address] Dr. Radha Garcia PROF 14(COMP METB)on 05-01- 022 Albumin [Mass/Vol] 3.9 g/dL Normal 3.4-5.0 [facility] Comment on above: Performed By: #### L IPA, CMP, ROSS #### [facility] [address] [place] [address] Dr. Radha Garcia Albumin/Globulin [Mass ratio] 1.2 {ratio} Normal [facility] Comment on above: Performed By: #### L IPA, CMP, ROSS #### [facility] [address] [place] [address] Dr. Radha Garcia ALP [Catalytic activity/Vol] 73 U/L Normal 46-116 [facility] Comment on above: Performed By: #### L IPA, CMP, ROSS #### [facility] [address] [place] [address] Dr. Radha Garcia ALT [Catalytic activity/Vol] 13 U/L Critically low 14-59 [facility] Comment on above: Performed By: #### L IPA, CMP, ROSS #### [facility] [address] [place] [address] Dr. Radha Garcia Anion gap [Moles/Vol] 9.0 mmol/L Normal [facility] Comment on above: Performed By: #### L IPA, CMP, ROSS #### [facility] [address] [place] [address] Dr. Radha Garcia AST [Catalytic activity/Vol] 12 U/L Critically low 15-37 [facility] Comment on above: Performed By: #### L IPA, CMP, ROSS #### [facility] [address] [place] [address] Dr. Radha Garcia Bilirubin [Mass/Vol] 0.6 mg/dL Normal 0.2-1.0 [facility] Comment on above: Performed By: #### L IPA, CMP, ROSS #### [facility] [address] [place] [address] Dr. Radha Garcia Calcium [Mass/Vol] 8.7 mg/dL Normal 8.5-10.1 [facility] Comment on above: Performed By: #### L IPA, CMP, ROSS #### [facility] [address] [place] [address] Dr. Radha Garcia Chloride [Moles/Vol] 106 mmol/L Normal 98-107 [facility] Comment on above: Performed By: #### L IPA, CMP, ROSS #### [facility] [address] [place] [address] Dr. Radha Garcia CO2 [Moles/Vol] 26.4 mmol/L Normal 21.0-32.0 [facility] Comment on above: Performed By: #### L IPA, CMP, ROSS #### [facility] [address] [place] [address] Dr. Radha Garcia Creatinine [Mass/Vol] 0.71 mg/dL Normal 0.55-1.02 [facility] Comment on above: Performed By: #### L IPA, CMP, ROSS #### [facility] [address] [place] [address] Dr. Radha Garcia EGFR-AF SAMOAN >60 Normal >=60 [facility] Comment on above: Performed By: #### L IPA, CMP, ROSS #### [facility] [address] [place] [address] Dr. Radha Garcia EGFR-NON AF SAMOAN >60 Normal >=60 [facility] Comment on above: Performed By: #### L IPA, CMP, ROSS #### [facility] [address] [address] [address] Radha Garcia Globulin (S) [Mass/Vol] 3.3 g/dL Normal [facility] Comment on above: Performed By: #### L IPA, CMP, ROSS #### [facility] [address] [address] [address] Radha Garcia Glucose [Mass/Vol] 89 mg/dL Normal 74-106 [facility] Comment on above: Performed By: #### L IPA, CMP, ROSS #### [facility] [address] [address] [address] Radha Garcia Potassium [Moles/Vol] 3.4 mmol/L Critically low 3.5-5.1 [facility] Comment on above: Performed By: #### L IPA, CMP, ROSS #### [facility] [address] [place] [address] Dr. Radha Garcia Protein [Mass/Vol] 7.2 g/dL Normal 6.4-8.2 [facility] Comment on above: Performed By: #### L IPA, CMP, ROSS #### [facility] [address] [address] [address] Radha Garcia Sodium [Moles/Vol] 138 mmol/L Normal 136-145 [facility] Comment on above: Performed By: #### L IPA, CMP, ROSS #### [facility] [address] [address] [address] Radha Garcia Urea nitrogen [Mass/Vol] 12.0 mg/dL Normal 7.0-18.0 [facility] Comment on above: Performed By: #### L IPA, CMP, ROSS #### [facility] [address] [address] [address] Radha Garcia Urea nitrogen/Creatinine [Mass ratio] 16.9 mg/mg Normal [facility] Comment on above: Performed By: #### L IPA, CMP, ROSS #### [facility] [address] [address] [address] Radha Garcia Q - DRUG TOX MONITORING CONFIRMATION,URINEon 05-23-2021 Amphetamines Negative Normal <500 [facility] [facility] Comment on above: Order Comment: [facility] Testing performed at: [place], [facility], [address] [facility], [address] [place] [address], [phone], Slip Operator: Shamar Colunga MD [facility] Collection Date/Time: [facility] Results Received Date/Time: [facility] Reported Date/Time: FASTING: NO Performed By: #### 9 [id number] #### [facility] Default [address] [place] [address] Barbiturates Negative Normal <300 [facility] Comment on above: Order Comment: [facility] Testing performed at: [place], [facility], [address] [facility], [address] [place] [address], [phone], Slip Operator: Shamar Colunga MD [facility] Collection Date/Time: [facility] Results Received Date/Time: [facility] Reported Date/Time: FASTING: NO Performed By: #### 9 [id number] #### [facility] Default [address] [place] [address] Benzodiazepines Negative Normal <100 [facility] Comment on above: Order Comment: [facility] Testing performed at: [place], [facility], [address] , [address] [place] [address], [phone], Slip Operator: Shamar Colunga MD [facility] Collection Date/Time: [facility] Results Received Date/Time: [facility] Reported Date/Time: FASTING: NO Performed By: #### 9 1486 #### [facility] Default [address] [place] [address] Cocaine Metabolite Negative Normal <150 [facility] Comment on above: Order Comment: [facility] performed at: [place], [facility], [address] , [address] [place] [address], [phone], Slip Operator: Shamar Colunga MD [facility] Collection Date/Time: [facility] Results Received Date/Time: [facility] Reported Date/Time: FASTING: NO Performed By: #### 9 1486 #### [facility] Default [address] [place] [address] COMMENT SEE NOTE Normal [facility] Comment on above: Order Comment: [facility] Testing performed at: [facility], [facility], [address] , [address] [place] [address], [phone], Slip Operator: Shamar Colunga MD [facility] Collection Date/Time: [facility] Results Received Date/Time: [facility] Reported Date/Time: FASTING: NO Result Comment: See Note 2 Note 1 This test was developed and its analytical performance characteristics have been determined by [employer]. It has not been cleared or approved [...] interpreting these drug results, please contact a [facility] T[facility] Specialist: [phone] ( [phone] M-F, 8am-6pm EST. Performed By: #### 9 [id number] #### [facility] Default [address] [place] [address] Marijuana Metabolite 73 ng/mL High <5 [facility] Comment on above: Order Comment: [facility] performed at: [place], [facility], [address] , [address] [place], [address], Slip Operator: Shamar Colunga MD [facility] Collection Date/Time: [id number] [facility] Results Received Date/Time: [id number] [facility] Reported Date/Time: FASTING: NO Result Comment: See Note 1 Performed By: #### 9 1486 #### [facility] Default [address] [place] [address] Marijuana Metabolite 20 Positive Abnormal <20 [facility] [place] Store Receiving Clerk Comment on above: Order Comment: [facility] performed at: [place], [facility], [address] , [address] [place] [address], [address] [place] [address], Slip Operator: Shamar Colunga MD [facility] Collection Date/Time: [facility] Results Received Date/Time: [facility] Reported Date/Time: FASTING: NO Performed By: #### 9 [id number] #### [facility] Default [address] [place] [address] Methadone Metabolite Negative Normal <100 [facility] Comment on above: Order Comment: [facility] Testing performed at: [place], [facility], [address] , [address] [place] [address], [address] [place] [address], Slip Operator: Shamar Colunga MD [facility] Collection Date/Time: [facility] Results Received Date/Time: [facility] Reported Date/Time: FASTING: NO Performed By: #### 9 1486 #### [facility] Default [address] [place] [address] Opiates Negative Normal <100 [facility] Comment on above: Order Comment: [facility] Testing performed at: [place], [facility], [address] , [address] [place] [address], [phone], Slip Operator: Shamar Colunga MD [facility] Collection Date/Time: [facility] Results Received Date/Time: [facility] Reported Date/Time: FASTING: NO Performed By: #### 9 1486 #### [facility] Default [address] [place] [address] Oxycodone Negative Normal <100 [facility] Comment on above: Order Comment: [facility] performed at: [place], [facility], [address] , [address] [place] [address], [phone], Slip Operator: Shamar Colunga MD [facility] Collection Date/Time: [facility] Results Received Date/Time: [facility] Reported Date/Time: FASTING: NO Performed By: #### 9 1486 #### [facility] Default [address] [place] [address] Phencyclidine Negative Normal <25 [facility] Store Receiving Clerk Comment on above: Order Comment: [facility] Testing performed at: Q, [facility], [address] [facility], [address] [place], [address], Slip Operator: Shamar Colunga MD [facility] Collection Date/Time: [facility] Results Received Date/Time: [facility] Reported Date/Time: FASTING: NO Performed By: #### 9 1486 #### [facility] Default [address] [place] [address] ERCPon 05-01-2021 ERCP [facility] Department of Radiology [address] [place] [address] Patient Name: JOVON LOPEZ : 1995 Sex: F Age: Race: White Pt. Location: [facility] Patient Status: D Ordered Date: 05/01/2021 5:00:00 [...] procedure. Electronically signed: Neris Guevara. Transcribed by: [email or web address], User Resident: Electronically Signed by: NERIS GUEVARA @ 05/03/2021 08:12 AM Normal [facility] Comment on above: Order Comment: Evalu ate Endoscopy Reporton Endoscopy Report MR#: [id number] [facility] Pt. Name: Jovon Lopez Surgery Date: 05/01/2021 Room #: M7A Date of : 1995 PROCEDURE NOTE ATTENDING: Gonzalez Powell M.D. ADVISORY SOFTWARE ENGINEER: Te Bacon MD. (Advanced Endoscopy Gastroenterology Fellow). [...] Bacon MD Date Trans: 05/01/2021 06:34 P/sandra [id number] Normal [facility] POC SARS COV2 ANTIGEN NEGATI VEon 05-01-2021 POC SARS COV2 ANTIGEN NEG Negative Normal NEGATIVE [facility] Comment on above: Result Comment: Nega tive [...] Accreditation. Performed By: #### 3 1977 #### [facility] [address] [facility]. [address] POC URINE PREGNANCYon 2020 Beta HCG ( test) Ql (U) Negative Normal NEGATIVE [facility] Comment on above: Result Comment: Perf ormed in PACU Performed By: #### 8 [id number] #### [facility] [address] [facility]. [address] Hemoglobinon 02-14-2021 Hemoglobin (Bld) [Mass/Vol] 11.4 g/dL Low 11.9-15.1 [facility] Comment on above: Performed By: #### H GB #### [facility] [address] [place] [address] [place] [address] Liv[employer] Territory Manager: Ilir Prasad MD HemoglobinOrdered By: Cherelle Mera on 02-14-2021 Hemoglobin.gastrointest inal spec 1 Ql (Stl) 11.4 g/dL Low 11.9 - 15.1 g/dL [facility] Phone: Interpretation and review of laboratory results Abnormal [facility] Phone: [facility] [employer] Phone: OPERATIVE REPORTon OPERATIVE REPORT [address] [address] OPERATIVE REPORT PATIENT NAME: JOVON LOPEZ : 1995 MED REC NO: [id number] ROOM: 0203 ACCOUNT NO: [id number] ADMIT DATE: 02/12/2021 PROVIDER: Fernando Hooks MD DATE OF PROCEDURE: 02/13/2021 PREOPERATIVE DIAGNOSES: at term, failed induction of labor, and intolerance to labor with late decelerations and brief episodes of bradycardia. SURGICAL PROCEDURE: Primary section, low transverse uterine segment. ANESTHESIA: Spinal. FLOOR ASSOCIATE: Nash Mera. ESTIMATED BLOOD LOSS: 800 mL. [...] then a running imbricating interlocking fashion. A tvumst-mr-stekn suture was placed on the right lateral [...] good condition. FERNANDO HOOKS MD [id number] Doc#: [id number] CC: Nash Mera [facility] TYPE AND SCREENOrdered By: Rosie Hooks on 02-13-2021 ABO/Rh Positive [facility] Work Phone: Arm Band Number [id number] [facility] Work Phone: Expiration Date 02/16/2021,2353 [facility] Work Phone: [facility] Work Phone: Type + Screenon 02-13-2021 Type + Screen Sample Expiration 02/16/2021,235 Arm Band Number [id number] ABO/Rh(D) A POSITIVE Antibody Screen NEGATIVE [facility] Comment on above: Performed By: #### T YS #### [facility] [address] [place] [address] [place] [address] Liv[employer] Nutrition Territory Manager: Ilir Prasad MD CBC auto differentialOrdered By: Nash Mera on 02-12-2021 [employer]os # 0.11 [employer] [facility] Work Phone: Absolute Immature Granulocyte 0.05 [employer] Work Phone: Absolute Lymph # 1.67 [employer] [facility] Work Phone: Absolute [place] # 0.44 [employer] [facility] Work Phone: Basophils (Bld) [#/Vol] 10*3/uL [employer] Work Phone: Basophils/100 WBC (Bld) 0 % 0 - 2 % [employer] Work Phone: Differential Type NOT REPORTED [employer] Phone: Eosinophils/100 WBC (Bld) 1 % 1 - 4 % [employer] Phone: Hematocrit (Bld) [Volume fraction] 33.3 % Low 36.3 - 47.1 % [employer] Phone: Hemoglobin.gastrointest inal spec 1 Ql (Stl) 10.7 g/dL Low 11.9 - 15.1 g/dL [employer] Phone: Immature granulocytes/100 WBC (Bld) 1 % High 0 [employer] Phone: Interpretation and review of laboratory results Abnormal [employer] Phone: Lymphocytes/100 WBC (Bld) 20 % Low 24 - 43 % [employer] Phone: MCH (RBC) [Entitic mass] 28.5 pg 25.2 - 33.5 pg [employer] Phone: MCHC (RBC) [Mass/Vol] 32.1 g/dL 28.4 - 34.8 g/dL [employer] Phone: MCV (RBC) [Entitic vol] 88.6 fL 82.6 - 102.9 fL [employer] Phone: Monocytes/100 WBC (Bld) 5 % 3 - 12 % [facility] Phone: NRBC Automated 0.0 0.0 per 100 WBC [employer] Phone: Platelet distribution width (Bld) [Ratio] 13.9 % 11.8 - 14.4 % [employer] Phone: Platelet Estimate NOT REPORTED [employer] Phone: Platelet mean volume (Bld) [Entitic vol] 11.5 fL 8.1 - 13.5 fL [employer] Phone: Platelets (Bld) [#/Vol] 229 10*3/uL [employer] Phone: RBC (Bld) [#/Vol] 3.76 10*6/uL Low 3.95 - 5.1 1 m/uL [employer] Phone: RBC (Bld) [#/Vol] NOT REPORTED [employer] Phone: Segmented neutrophils/100 WBC (Bld) 73 % High 36 - 65 % [employer] Phone: Segs Absolute 5.99 [facility] Work Phone: WBC (Bld) [#/Vol] 8.3 10*3/uL [employer] Phone: WBC (Bld) [#/Vol] NOT REPORTED [employer] Phone: [employer] Phone: CBC with Diffon 02-12-2021 Abs. Basophil <0.03 Normal 0.00-0.20 [facility] Comment on above: Performed By: #### C DP #### [facility] [address] [place] [address] Livestock Nutrition Territory Manager: Ilir Prasad MD Abs.Imm.Granulocyte 0.05 k/uL Normal 0.00-0.30 [facility] Comment on above: Performed By: #### C DP #### [facility] [address] [place] [address] Dr[address] [place], [place] [address] [employer] Territory Manager: Ilir Prasad MD Abs.Neutrophil (Seg) 5.99 k/uL Normal 1.50-8.10 [facility] Comment on above: Performed By: #### C DP #### [address] [place], [place] [address] Livestock Nutrition Territory Manager: Ilir Prasad MD Basophils/100 WBC (Bld) 0 % Normal 0-2 [facility] Comment on above: Performed By: #### C DP #### [address] [place] [address] Livestock Nutrition Territory Manager: Ilir Prasad MD Eosinophils (Bld) [#/Vol] 0.11 10*3/uL Normal 0.00-0.44 [facility] Comment on above: Performed By: #### C DP #### [address] [place], [place] [address] [employer] Territory Manager: Ilir Prasad MD Eosinophils/100 WBC (Bld) 1 % Normal 1-4 [facility] Comment on above: Performed By: #### C DP #### [facility] [address] [place] [address] Dr. [place], [place] [address] [employer] Territory Manager: Ilir Prasad MD Erythrocyte distribution width (RBC) [Ratio] 13.9 % Normal 11.8-14.4 [facility] Comment on above: Performed By: #### C DP #### [address] [place], [place] [address] [employer] Territory Manager: Ilir Prasad MD Hematocrit (Bld) [Volume fraction] 33.3 % Low 36.3-47.1 [facility] Comment on above: Performed By: #### C DP #### [facility] [address] [place], [place] [address]83 [employer] Territory Manager: Ilir Prasad MD Hemoglobin (Bld) [Mass/Vol] 10.7 g/dL Low 11.9-15.1 [facility] Comment on above: Performed By: #### C DP #### [facility] [address] [place], [place] [id number] [employer] Territory Manager: Ilir Prasad MD Immature granulocytes/100 WBC (Bld) 1 % High 0 [facility] Comment on above: Performed By: #### C DP #### [facility] [address] [place], [facility]83 Liv[employer] Nutrition Territory Manager: Ilir Prasad MD Lymphocytes (Bld) [#/Vol] 1.67 10*3/uL Normal 1.10-3.70 [facility] Comment on above: Performed By: #### C DP #### [facility] [address] [place] [address] Dr. [place], [facility]83 [employer] Territory Manager: Ilir Prasad MD Lymphocytes/100 WBC (Bld) 20 % Low 24-43 [facility] Comment on above: Performed By: #### C DP #### [address] [place], [place] 4014383 [employer] Territory Manager: Ilir Prasad MD MCH (RBC) [Entitic mass] 28.5 pg Normal 25.2-33.5 [facility] Comment on above: Performed By: #### C DP #### [facility] [address] [place], [place] 3546383 [employer] Territory Manager: Ilir Prasad MD MCHC (RBC) [Mass/Vol] 32.1 g/dL Normal 28.4-34.8 [facility] Comment on above: Performed By: #### C DP #### [facility] [address] [place] [address] Livestock Nutrition Territory Manager: Ilir Prasad MD MCV (RBC) [Entitic vol] 88.6 fL Normal 82.6-102.9 [facility] Comment on above: Performed By: #### C DP #### [facility] [address] [place], [place] [address]65483 [employer] Nutrition Territory Manager: Ilir Prasad MD Monocytes (Bld) [#/Vol] 0.44 10*3/uL Normal 0.10-1.20 [facility] Comment on above: Performed By: #### C DP #### [facility] [address] [place], [place] [id number] [employer] Territory Manager: Ilir Prasad MD Monocytes/100 WBC (Bld) 5 % Normal 3-12 [facility] Comment on above: Performed By: #### C DP #### [address] [place], [place] [address]83 [employer] Nutrition Territory Manager: Ilir Prasad MD Neutrophil (Seg) 73 % High 36-65 [facility] Comment on above: Performed By: #### C DP #### [address] [place], [place] [address]83 [employer] Nutrition Territory Manager: Ilir Prasad MD NRBC Automated 0.0 per 100 WBC Normal 0.0 [facility] Comment on above: Performed By: #### C DP #### [address] [place], [place] [address] [employer] Nutrition Territory Manager: Ilir Prasad MD Platelet mean volume (Bld) [Entitic vol] 11.5 fL Normal 8.1-13.5 [facility] Comment on above: Performed By: #### C DP #### [address] [place] [address] [employer] Nutrition Territory Manager: Ilir Prasad MD Platelets (Bld) [#/Vol] 229 10*3/uL Normal 138-453 [facility] Comment on above: Performed By: #### C DP #### [facility] [address] [place] [address] Livestock Nutrition Territory Manager: Ilir Prasad MD RBC (Bld) [#/Vol] 3.76 10*6/uL Low 3.95-5.11 [facility] Comment on above: Performed By: #### C DP #### [facility] [address] [place] [address] Livestock Nutrition Territory Manager: Ilir Prasad MD WBC (Bld) [#/Vol] 8.3 10*3/uL Normal 3.5-11.3 [facility] Comment on above: Performed By: #### C DP #### [facility] [address] [place] [address] [employer] Nutrition Territory Manager: Ilir Prasad MD Auto Diff Performed NOT REPORTED Normal [facility] Comment on above: Performed By: #### C DP #### [facility] [address] [place], [facility]83 [employer] Nutrition Territory Manager: Ilir Parsad MD Platelet Estimate NOT REPORTED Normal [facility] Comment on above: Performed By: #### C DP #### [address] [place], [place] 5260283 [employer] Territory Manager: Ilir Prasad MD RBC morphology finding Nom (d) NOT REPORTED Normal [facility] Comment on above: Performed By: #### C DP #### [facility] [address] [place], [place] [address]83 Liv[employer] Nutrition Territory Manager: Ilir Prasad MD WBC Morphology NOT REPORTED Normal [facility] Comment on above: Performed By: #### C DP #### [facility] [address] [place] [address] Livestock Nutrition Territory Manager: Ilir Prasad MD DRUG SCREEN MULTI URINEOrder ed By: Nash Mera on 02-12-2021 Amphetamine Screen, Ur Negative NEGATIVE [facility] [employer] Work Phone: Barbiturate Screen, Ur Negative NEGATIVE [facility] Work Phone: Benzodiazepine Screen, Urine Negative NEGATIVE [facility] Work Phone: Buprenorphine Urine Negative NEGATIVE [facility] Work Phone: Cannabinoid Scrn, Ur Negative NEGATIVE [facility] Work Phone: Cocaine Metabolite, Urine Negative NEGATIVE [facility] Work Phone: MDMA, Urine NOT REPORTED NEGATIVE [facility] Work Phone: Methadone Screen, Urine Negative NEGATIVE [facility] Work Phone: Methamphetamine, Urine Negative NEGATIVE [facility] Work Phone: Opiates, Urine Negative NEGATIVE [facility] Work Phone: Oxycodone Screen, Ur Negative NEGATIVE [facility] Work Phone: Phencyclidine, Urine Negative NEGATIVE [facility] Work Phone: Propoxyphene, Urine Negative NEGATIVE [facility] Work Phone: Test Information NOT REPORTED [facility] Work Phone: Tricyclic Antidepressants, Urine Negative NEGATIVE [facility] Work Phone: Comment on above: Drug screen results are to be used for medical purposes only. All positive results are unconfirmed. Testing for employment or legal uses should be sent to a reference laboratory for confirmation. [facility] Work Phone: Drug Scr, Abuse, Uron 2020 Amphetamine(s),Ur Negative Normal NEG [facility] Comment on above: Performed By: #### D AU #### [facility] [address] [place] [address] Livestock Nutrition Territory Manager: Ilir Prasad MD Barbiturate(s),Ur Negative Normal NEG [facility] Comment on above: Performed By: #### D AU #### [facility] [address] [place] [address] [place] [place], [place] [id number] Livestock Nutrition Territory Manager: Ilir Prasad MD Benzodiazepine(s) Negative Normal NEG [facility] Comment on above: Performed By: #### D AU #### [facility] [address] [place] [address] Dr. [place], [place] 8398583 Livestock Nutrition Territory Manager: Ilir Prasad MD Buprenorphrine, Ur Negative Normal [facility] Comment on above: Performed By: #### D AU #### [facility] [address] [place], [place] [id number] Livestock Nutrition Territory Manager: Ilir Prasad MD Cannabinoid(s),Ur Negative Normal [facility] Comment on above: Performed By: #### D AU #### [facility] [address] [place] [address] Dr. [place], [place] 1943783 Livestock Nutrition Territory Manager: Ilir Prasad MD Cocaine Metabolite Negative Normal [facility] Comment on above: Performed By: #### D AU #### [facility] [address] [place] [address] Dr. [place], [place] [id number] Livestock Nutrition Territory Manager: Ilir Prasad MD Methadone Ql (U) Negative Normal [facility] Comment on above: Performed By: #### D AU #### [facility] [address] [place] [address] [place] [place], [place] [phone] Livestock Nutrition Territory Manager: Ilir Prasad MD Methamphetamine, Ur Negative Normal [facility] Comment on above: Performed By: #### D AU #### [facility] [address] [place] [address] Dr. [place], [place] 0178483 Livestock Nutrition Territory Manager: Ilir Prasad MD Opiate(s), Ur Negative Normal [facility] Comment on above: Performed By: #### D AU #### [facility] [address] [place], [place] 7907483 Livestock Nutrition Territory Manager: Ilir Prasad MD Oxycodone, Urine Negative Normal NEG [facility] Comment on above: Performed By: #### D AU #### [facility] [address] [place], [place] 8660483 Livestock Nutrition Territory Manager: Ilir Prasad MD Phencyclidine, Ur Negative Normal NEG [facility] Comment on above: Performed By: #### D AU #### [facility] [address] [place], [place] [address]98[address]83 Livestock Nutrition Territory Manager: Ilir Prasad MD Propoxyphene,Urine Negative Normal NEG [facility] Comment on above: Performed By: #### D AU #### [facility] [address] [place] [address] Livestock Nutrition Territory Manager: Ilir Prasad MD Tricyclic antidepressants Screen Ql (U) Negative Normal NEG [facility] Comment on above: Result Comment: Drug screen results are to be used for medical purposes only. All positive results are unconfirmed. Testing for employment or legal uses should be sent to a reference laboratory for confirmation. Performed By: #### D AU #### [facility] [address] [place] [address] [place] [address] Livestock Nutrition Territory Manager: Ilir Prasad MD Interpretive Info NOT REPORTED Normal [facility] Comment on above: Performed By: #### D AU #### [facility] [address] [place] [address] Dr. [place], [place] [phone] Livestock Nutrition Territory Manager: Ilir Prasad MD MDMA, Urine NOT REPORTED Normal NEG [facility] Comment on above: Performed By: #### D AU #### [facility] [address] [place], [place] 5863083 [employer]estock Nutrition Territory Manager: Ilir Prasad MD GBS, External ResultOrdered By: Historical Provider on 01-29-2021 GBS, External Result Negative [place] [facility] Work Phone: [facility] Work Phone: ABO, External ResultOrdered By: Historical Provider on 08-15-2020 ABO, External Result A [facility] Work Phone: HIV, External ResultOrdered By: Historical Provider on 08-15-2020 HIV, External Result Non-Reactive [facility] [employer] Phone: Hepatitis B, External Result Ordered By: Historical Provider on 08-15-2020 Hep B, External Result Negative [facility] [employer] Phone: No Panel InformationOrdered By: Historical Provider on 08-15-2020 [employer] Phone: PROFILE IOrdered By : Historical Provider on 08-15-2020 ABO/Rh Positive [employer] Phone: Rh Factor, External ResultOr dered By: Historical Provider on 08-15-2020 Rh Factor, External Result Positive [employer] Phone: Hepatitis C Antibody, Explosives Operator al ResultOrdered By: Historical Provider on 07-26-2020 Hepatitis C Antibody, External Result Negative [employer] Phone: No Panel InformationOrdered By: Historical Provider on 07-26-2020 [employer] Phone: RPR, External LabOrdered By: Historical Provider on 07-26-2020 RPR, External Result Non-Reactive Wi [employer] Phone: Vag Pathogens DNAon 08-22-19 19 Hazel vag DNA Probe Positive Critically abnormal Negative for Gardnerella vaginalis by DNA Probe [facility] Comment on above: Result Comment: This is suggestive, but not diagnostic of bacterial vaginosis, results should be interpreted in conjunction with other data such as pH, amine odor, clue cells and vaginal discharge characteristics. Performed By: #### V AGDNA #### [facility] [address] [place], [place] [address] Protein mass conc Negative Normal Negative f or Lucía species by DNA Probe [facility] Comment on above: Performed By: #### V AGDNA #### [facility] [address] [place], [place] [address] Trich vag DNA Probe Negative Normal Negative for Trichomonas vaginalis by DNA Probe [facility] Comment on above: Performed By: #### V AGDNA #### [facility] [address] [place], [place] [address] CNOVon 08-20-2018 CNOV Office Visit (GISELLA ) JOVON LOPEZ ([id number]) 1995 F T Date Time Provider Department 08/20/18 2:00 PM BRIGITTE MAIN (STEVIE) GISELLA During your visit today, we recorded the following information about you: Blood pressure Weight Height Last Period 110/70 60.3 kg 1.575 m 07/20/18 Kaycee Horvath MA 08/20/2018 2:17 PM Signed Credit Clerk offered: Patient declines. Brigitte Main APRN.CNP [...] external genitalia normal, normal Bartholin's glands, urethra, Robins's glands, no vulvar lesions, no cervical lesions, good vaginal support, normal appearing perineal body and perianal region, moderate amount yellow discharge noted BIMANUAL: uterus normal size, shape and consistency, no adnexal masses and non-tender RECTOVAGINAL: deferred. 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 [50] Cmt: Vaginal pain and discharge [...] test, unconfirmed [Z32.00] Order(s):PAP FLUID CERVICAL SCREENING [[id number]] Order #: [id number] VAGINAL PATHOGENS DNA PROBES [SQVAGDNA] Order #: [id number] GC/CHLAMYDIA DNA DET [SQGCCAMP] Order #: [id number] TSH BLD [SQTSH] Order #: [id number] PROLACTIN BLD [SQPROL] Order #: [id number] TESTOSTERONE, FREE AND TOTAL [SQFTESTO] Order #: [id number] HGB A1C [HUECM8L] Order #: [id number] DHEA-S BLD [SQDHEAS] Order #: [id number] FSH BLD [SQFSH] Order #: [id number] INSERT INTRAUTERINE DEVICE [1334793] Order #: [id number] HCG QUAL UR B/O [[id number]] Order #: [id number] Prescriptions as of 08/20/2018 Sig: HYDROCODONE 5 MG-ACETAMINOPHE* Take 1 tablet by mouth every * Problem List As Of Date: 08/20/2018 (None) Visit Notes: >> Kaycee Horvath MA ThuAug 20, 2018 2:11 PM Status: Signed Credit Clerk offered: Patient declines. >> Kaycee Horvath MA ThuAug 20, 2018 4:38 PM Status: Signed Negative upt. Encounter Status:Closed by BRIGITTE MAIN CNP on 08/20/18 Normal [facility] CYTOLOGYon 08-20-2018 CYTOLOGY Specimen originated from [facility] Specimen #: [id number] Submitting Physician: BRIGITTE YOUNG CNP SPECIMEN SUBMITTED [...] from every slide are reviewed by a roll skinner. RAYNE Covington(ASCP) (Electronic Signature) ____ CLINICAL DATA ROUTINE EXAM, HPV Testing: Yes, Reflex HPV for ASCUS Date of Last Menstrual Period: 07/20/2018 STAINS A: CERVICAL, SCREENING, FLUID THIN PREP PLAYROOM ATTENDANT Brigitte Echavarria M.D., Change Director Date of Report: 08/25/2018 Date of Procedure: 08/20/2018 Date of Receipt: 08/23/2018 Submitted by: BRIGITTE YOUNG CNP Location: [facility] Diagnostic interpretation performed at [facility], [address] [place] [address]. CLIA Number: [id number] The Pap Smear is a screening test for cervical cancer. False negative results occur with all screening tests, emphasizing the need for rescreening at recommended intervals, and clinical correlation. Normal [facility] GC/Chlamydia Amplifon 2018 Chlamydia Amplif Positive Critically abnormal [facility] Comment on above: Result Comment: In l ow prevalence populations, the likelihood of a false positive may be higher than a true positive. Retesting by another method may be appropriate for patients who lack risk factors or clinical signs and symptoms consistent with infection. Performed By: #### G CCT #### [place] [address] GC Amplification Negative Normal [facility] Comment on above: Performed By: #### G CCT #### [facility] [address] [place], [place] [address] GC/Chlam Amp Source Cervix Normal [facility] Comment on above: Performed By: #### G CCT #### [facility] [address] [place], [place] [address] PROGRESSon 08-20-2018 Protein mass conc HNO ID: [id number] Author: Brigitte Grier (Chucking Machine Set Up Operator) O'Young Service: ? Author Type: Nurse [...] external genitalia normal, normal Bartholin's glands, urethra, Robins's glands, no vulvar lesions, no cervical lesions, good vaginal support, normal appearing perineal body and perianal region, moderate amount yellow discharge noted BIMANUAL: uterus normal size, shape and consistency, no adnexal masses and non-tender RECTOVAGINAL: deferred. 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 Breast cancer screening Menorrhagia with irreg [...] for insertion pending ins coverage Brigitte Main, JAWBONE PULLER.VENDING MACHINE REPAIRER Normal [facility] Vital Signs Date Time Vital Sign Value Performing Clinician Facility 06-30-2023 10:20-0500 Body height 157.48 cm Luis Leung Other [employer] Other 06-30-2023 10:20-0500 Body mass index (BMI) [Ratio] 22.49 kg/m2 Luis eLung Other [employer] Other 06-30-2023 10:20-0500 Body weight 55.79 kg Luis Leung Other [employer] Other 06-30-2023 10:20-0500 Diastolic blood pressure 65 mm[Hg] Luis Leung Other [employer] Other 06-30-2023 10:20-0500 Systolic blood pressure 115 mm[Hg] Luis Leung Other [facility] [employer] Other 05-17-2022 15:15-0500 Diastolic blood pressure 59 mm[Hg] PHYSICIAN NO [facility] 05-17-2022 15:15-0500 Heart rate 67 /min PHYSICIAN NO [facility] 05-17-2022 15:15-0500 Respiratory rate 15 /min PHYSICIAN NO [facility] 05-17-2022 15:15-0500 SaO2% (BldA) [Mass fraction] 99 % PHYSICIAN NO [facility] 05-17-2022 15:15-0500 Systolic blood pressure 111 mm[Hg] PHYSICIAN NO [facility] 05-17-2022 11:45-0500 Body height 160.02 cm PHYSICIAN NO [facility] 05-17-2022 11:45-0500 Body temperature 98 [degF] PHYSICIAN NO [facility] 05-17-2022 11:45-0500 Body weight 58 kg PHYSICIAN NO [facility] 02-15-2021 07:23-0400 Body temperature 98.1 [degF] Nash Floro JAWBONE PULLER - CNM Work Phone: [employer] Work Phone: 02-15-2021 07:23-0400 Diastolic blood pressure 59 mm[Hg] Nash Floro JAWBONE PULLER - CNM Work Phone: [employer] Work Phone: 02-15-2021 07:23-0400 Heart rate 71 /min Nash Floro JAWBONE PULLER - CNM Work Phone: [employer] Work Phone: 02-15-2021 07:23-0400 Respiratory rate 16 /min Nash Floro JAWBONE PULLER - CNM Work Phone: [employer] Work Phone: 02-15-2021 07:23-0400 Systolic blood pressure 98 mm[Hg] Nash Floro JAWBONE PULLER - CNM Work Phone: [employer] Work Phone: 02-13-2021 20:25-0400 SaO2% (BldA) [Mass fraction] 97 % Nash Mera JAWBONE PULLER - CNM Work Phone: [employer] Work Phone: 02-12-2021 15:50-0400 Body height 157.5 cm Nash Mera APRN - CN Work Phone: [employer] Work Phone: 02-12-2021 15:50-0400 Body mass index (BMI) [Ratio] 33.29 kg/m2 Nash Mera APRN - CNM Work Phone: [employer] Work Phone: 02-12-2021 15:50-0400 Body weight 82.56 kg Nash Mera APRN - CN Work Phone: [employer] Work Phone: Encounters Encounter Date Encounter Type Care Provider Facility Start: 12-08-2023 End: 12-08-2023 ambulatory NASH L FLORO Not Available Start: 12-07-2023 End: 12-07-2023 ambulatory NASH L FLORO Not Available Start: 11-23-2023 End: 11-23-2023 ambulatory NASH L [...] 06-30-2023 End: 06-30-2023 ambulatory Luis Leung Other [employer] Other Start: 06-30-2023 Office outpatient visit 15 minutes Luis Leung [facility] Start: 06-30-2023 Telephone encounter Luis Crews [facility] Start: 06-04-2023 End: 06-04-2023 ambulatory NASH L FLORO Not Available Start: 05-14-2023 End: 05-14-2023 ambulatory NASH L FLORO Not Available Start: 04-21-2023 End: 04-21-2023 Emergency department patient visit PHYSICIAN NO FAMILY Facility:[facility] Start: 10-19-2022 End: 10-19-[address] NONE LISTED REQUEST Facility: Start: 05-26-2022 ambulatory lAize Jefferson RN NURS E RATING CLERK Comment on above: Muscle Aches Start: 05-24-2022 End: 05-25-2022 Emergency department patient visit IKE HASTINGS Facility:[facility] Start: 05-23-2022 End: 05-23-2022 ambulatory GONZALEZ POWELL [facility] Start: 05-17-2022 End: 05-17-2022 Emergency department patient visit PHYSICIAN NO FAMILY [facility] Start: 05-01-2022 End: 05-01-[address] NONE LISTED REQUEST Facility: Start: 05-01-2021 End: 05-02-2021 ambulatory REFERRED SELF Facility:[facility] Start: 02-12-2021 End: 02-15-2021 Evaluation and management of inpatient NASH MERA [facility] Start: 02-12-2021 End: 02-15-2021 Evaluation and management of inpatient Nahs Mera JAWBONE PULLER - CNM Work Phone: [facility] Labor and Delivery Comment on above: S/P primary low arredondo sverse (Primary Dx) Start: 08-20-2018 End: 08-23-2018 Patient encounter procedure BRIGITTE BA [facility] Luis Procedures Date Procedure Procedure Detail Performing Clinician Start: 02-14-2021 Blood count hemoglobin Nash Mera JAWBONE PULLER - [facility] Work Phone: Start: 02-13-2021 Antibody screen Nash Cardoso [facility] Work Phone: Start: 02-13-2021 Blood typing serolog ic abo Fernando Hooks MD Work Phone: Start: 02-12-2021 Blood count complete auto&auto difrntl wbc Nash Mera JAWBONE PULLER - [facility] Work Phone: Start: 02-12-[address] a Nash Mera [facility] Work Phone: Start: 01-29-2021 GBS, EXTERNAL RESULT Hi alban Provider Start: 08-15-2020 ABO, EXTERNAL RESULT Hi alban Provider Start: 08-15-2020 HEPATITIS B, EXTERNA L RESULT Historical Provider Start: 08-15-2020 HIV, EXTERNAL RESULT Hi alban Provider Start: 08-15-2020 Obstetric panel Histori brian Provider Start: 08-15-2020 RH FACTOR, EXTERNAL RESULT Historical Provider Start: 07-26-2020 HEPATITIS C ANTIBODY , EXTERNAL RESULT Historical Provider Start: 07-26-2020 RPR, EXTERNAL RESULT Hi alban Provider H/O: section S/P primar y low transverse Nash Mera JAWBONE PULLER - [facility] Work Phone: H/O: section S/P primar y low transverse Nash Mera [facility] Work Phone: Plan of Treatment Date Care Activity Detail Author Start: 02-06-2022 Influenza vaccination INFLUENZA (#1) [facility] Start: 08-20-2021 PAP TESTING PAP TESTING [facility] Start: 06-08-2021 DEPRESSION [facility]ESSMENT [facility] Start: 02-06-2021 Influenza vaccination Flu vaccine (# 1) [employer] Phone: Start: 2018 Screening for malign ant neoplasm of cervix Pap smear [employer] Phone: Start: 2016 DTaP/Tdap/Td vaccine (1 - Tdap) DTaP/Tdap/Td vaccine (1 - Tdap) [facility] Phone: Start: 2016 Urine microalbumin profile DTAP,TDAP,TD (1 - Tdap) [facility] Start: 2015 HEPATITIS C SCREENING HEPATITIS C WI MAYURIMICHAEL [facility] Start: 2015 HIV SCREENING HIV SCREENING [facility] Start: 2013 Screening for Chlamy graham trachomatis Chlamydia screen [facility] [employer] Phone: Start: 2012 HIV screening HIV screen [facility] Work Phone: Start: 2011 PEDS TO ADULT TRANSI TION ANNUAL ASSESSMENT PEDS TO ADULT TRANSITION ANNUAL ASSESSMENT [facility] Start: 2009 COVID-19 Vaccine (1) COVID-19 Vaccin e (1) [facility] Phone: Start: 2009 PEDS TO ADULT TRANSI TION INITIAL DISCUSSION PEDS TO ADULT TRANSITION INITIAL DISCUSSION [facility] Start: 2008 HPV vaccine (1 - 2-d ose series) HPV vaccine (1 - 2-dose series) [facility] Start: 1998 Varicella vaccine (1 of 2 - 2-dose childhood series) Varicella vaccine (1 of 2 - 2-dose childhood series) [facility] [employer] Phone: Start: 1997 COVID-19 VACCINE (#1) COVID-19 VACCI NE (#1) [facility] Start: 1997 HEPATITIS B (1 of 3 - 3-dose series) HEPATITIS B (1 of 3 - 3-dose series) [facility] Start: 1997 Hepatitis C screening Hepatitis C nh abena [facility] [employer] Phone: Bacteria identified in Urine by Culture [facility] Oxygen therapy [Mini [facility] Data Set] Initiate Oxygen Therapy Protocol Respiratory Care Routine Daily until discontinued starting 02/13/2021 [facility] Phone: Comment on above: Daily until disconti nued starting 02/13/2021 Patient Education Abdominal Pain , Adult ED [facility] Work Phone: Patient referral [facility] Work Phone: Spirometry panel Incentive blanka metry Respiratory Care Routine Every 2hr while awake until discontinued starting 02/13/2021 [employer] Work Phone: Comment on above: Every 2hr while awak e until discontinued starting 02/13/2021 Immunizations Immunization Date Immunization Notes Care Provider Fa cility 02-13-2021 diphtheria, tetanus toxoids and acellular pertussis vaccine, unspecified formulation [employer] Work Phone: [employer] Work Phone: 02-13-2021 measles, mumps and rubella virus vaccine [employer] Work Phone: [employer] Work Phone: Payers Date Payer Category Payer Self-pay 2021 Medicaid [facility] MEDICAID [facility] COMMUNITY PLAN MEDICAID OF [place] [id number] 2021-Present [phone] [address] [place] [address] Medicaid [id number] 1995 Unknown [id number] 2.16.840.1.549500.3.579.2. 173 1995 Unknown [id number] 2.16.840.1.983484.3.579.2. 647 1995 Unknown [id number] 2.16.840.1.632450.3.579.2. 593 1997 Unknown [id number] 2.16.840.1.461515.3.579.2. 593 1997 Unknown [id number] 2.16.840.1.616584.3.579.2. 1259 1997 Unknown [id number] 2.16.840.1.190365.3.579.2. 1258 1997 Unknown [id number] 2.16.840.1.234333.3.579.2. 1258 1997 Unknown [id number] 2.16.840.1.919783.3.579.2. 1258 1997 Unknown [id number] 2.16.840.1.142007.3.579.2. 1258 1997 Unknown [id number] 2.16.840.1.837787.3.579.2. 1258 1997 Unknown [id number] 2.16.840.1.932475.3.579.2. 1258 1997 Unknown [id number] 2.16.840.1.531488.3.579.2. 1258 1997 Unknown [id number] 2.16.840.1.714048.3.579.2. 1258 1997 Unknown [id number] 2.16.840.1.484573.3.579.2. 1258 1997 Unknown [id number] 2.16.840.1.876977.3.579.2. 1258 1997 Unknown [id number] 2.16.840.1.748537.3.579.2. 1258 1997 Unknown [id number] 2.16.840.1.858060.3.579.2. 1259 1959 Private Health Insurance [id number] 1.2.840.002951.1.13.239.2. 7.3.713931.315 1959 Unknown [id number] Unknown [id number] 2.16.840.1.693360.3.579.2. 531 Social History Date Type Detail Facility Start: 08-20-2018 End: 02-13-2021 Tobacco smoking status DEIS Never smoker [facility] Start: 08-20-2018 End: 02-13-2021 Tobacco use and exposure Never used [employer] Start: 02-13-2021 Alcohol intake Ex-drinker (finding) [employer] Phone: Start: 1995 Sex Assigned At Not on file [employer] Phone: Exposure to SARS-CoV-2 (event) Not sure [facility] Start: 05-17-2022 Tobacco smoking status NHIS Smoker (finding) [facility] Start: 1995 Sex Assigned At Female F [facility] Start: 05-24-2022 Alcohol intake Current drinke r of alcohol (finding) [facility] Start: 08-20-2018 Tobacco Comment Smokes radhames--smokeless cigs. [facility] Start: 08-20-2018 Alcohol Comment a couple times per month [facility] Sex Assigned At Sex Assigned At Bir th [employer] Other Clinical Notes 02-15-2021 to 06-30-2023 Note Date & Type Note Facility 06-30-2023 Evaluation note Encounter Date Diagnosis Assessment Notes Jun, Diarrhea (ICD-10 - R19.7) Jun, Nausea (ICD-10 - R11.0) Jun, Weight loss (ICD-10 - R63.4) [facility] [employer] Other 12-30-2022 NotePlease notify patient that all of her labs are normal. We will proceed with EGD for further evaluation as planned. She needs to follow up with her PCP or whoever ordered the UA. This was not ordered by us and is abnormal. Please advise patient to follow up with ordering provider.[facility]12-19-2022 Miscellaneous Notes* Telephone Encounter - Alize Jefferson RN - 05/26/2022 10:53 PM EST Reason for Call: pt does not have a current PCP and is having worsening symptoms since seen in ED on 05/24/22 Outcome: Advised to return to ED now, agreeable. [facility] Note Attestation signed by Gonzalez Powell MD at 05/23/2022 7:30 PM I personally saw and examined the patient on the same date of service as resident/fellow . I discussed the findings and therapeutic plan with the resident/fellow . I agree with the documentation, except for any edits/updates below. [facility] Gastroenterology History & Physical CHIEF COMPLAINT Chief Complaint Patient presents with New Patient Fatigue Had gallbladder removed in 03/2021, Dr. Powell found and fixed leak 04/2021, pt is having major problems with eating and drinking. Was referred back in 2020 HISTORY OF PRESENT ILLNESS: Jovon Lopez is a 27 y.o. female with history laparoscopic cholecystectomy on 03/25/2021 at [facility] (in setting of cholecystitis) complicated by biliary leak status post biliary stent on 03/28/2021 and transferred back to [place]. While there, she had worsening abdominal pain [...] cholangiogram. Biliary sphincterotomy was performed. A 10 Chadian X 9 cm plastic biliary stent was [...] normal bowel sounds, soft, (more content not included)...[facility]11-01-2021 History general Narrative - Reported* Type Description Date Surgical History C section Surgical History cholecystectomy 04/2021 [employer] Other 09-10-2021 History of Present illness Narrative* iLla Mcintosh RN - 02/15/2021 2:17 PM EDT RN calls patient and updates her that her follow up appointment and baby's follow up appointment are made (pt had requested RN make appointments for her) - updated of dates and times of appointments. * Lila Mcintosh RN - 02/15/2021 12:00 PM EDT Maternal [...] I did review with her that the cyber security consultant can review pump usage with her [...] 107/78 98.2 F (36.8 C) 68 18 02/13/216 111/75 68 02/13/212040 104/66 75 02/13/212026 100/60 [...] - CNM - 02/13/2021 7:35 PM EDT Issue Clerk Note: assistant manager of operations/assistant distribution manager primary section with Dr Hooks Closed SQ layer and also closed skin incision. All edges approximated, no bleeding or drainage noted. maintenance technician places sterile dressing over incision. [...] 02/13/2021 5:15 PM EDT Surgery notified that tip fixer and recovery nurse needed for impending . documented in this [facility] [employer] Phone: [phone]) 163-500809-10-2021 Hospital Discharge instructions* Instructions* Lila Mcintosh RN - 02/15/2021 Follow-up with your OB doctor as specified. [facility] OB Department phone: Dr. Neva Smith CNM Dr. Brittani Espinoza CN [address] [facility] [facility] [address] [place]ido Lani Mera, MSN, JAWBONE PULLER, CNM [place] [id number] [facility] [address] DIET Eat a well balanced diet focusing on foods high in fiber and protein. Drink plenty of fluids especially water. To avoid constipation you may take a mild stool softener as recommended by your doctor or novelty chain maker. ACTIVITY Gradually increase your activity. Resume exercise regimen only after advice by your doctor or novelty chain maker. Avoid lifting anything heavier than a gallon of milk for SIX weeks. Avoid driving until your doctor or novelty chain maker has given their approval. Rise slowly from [...] medications as recommended by your doctor or novelty chain maker for pain If you develop a warm, [...] vitamins as directed by your doctor or novelty chain maker. Refer to the booklet in the folder/binder for more information. If you feel you need more assistance or have questions, please call Loreta Reyes IBCLC, cyber security consultant, at or the OB department to [...] area in your calf. documented [facility] Work Phone: 1(707) 803-917909-10-2021 Hospital course Narrative* Kyra Smith APRN - [...] for: HEPBSAG HIV: No results found for: [id number] Results for orders placed or performed during [...] # 1.67 1.10 - 3.70 k/uL Absolute [place] # 0.44 0.10 - 1.20 k/uL Absolute [...] Range Expiration Date 02/16/2021,2359 Arm Band Number [id number] ABO/Rh A POSITIVE Antibody Screen NEGATIVE complications: none Discharge Medication: Jovon Lopez [place] Medication Instructions [place]:[id number] Printed on:02/15/21 1002 Medication Information docusate sodium [...] and post depression check documented in this [employer] Phone: [email or web address] note* Diagnosis S/P primary low transverse - Primary delivery, without mention of indication, unspecified as to episode of care Encounter for induction of labor Term intolerance to labor, delivered, current hospitalization Abnormality in heart rate/rhythm, delivered, with or without mention of antepartum condition documented in this encounter [employer] Phone: [email or web address] noteNo assessment information available [facility] Work Phone: Evaluation noteNo InformationNort [employer] Other Hospital Discharge instructions Additional Instructions Follow-up with GI doctor provided Return to the ED if develop worsening symptoms or concerns take the new medications as prescribed, use pepto bismol, tums as needed avoid any spicy foods, fatty foods and [facility]: Summary Purpose Family [...] section and content) DATE CREATED AUTHOR 08/25/2018 [facility] DATE CREATED AUTHOR AUTHOR'S ORGANIZ ATION 02/16/2021 [facility] DATE CREATED AUTHOR AUTHOR'S ORGANIZ ATION 05/21/2021 [facility] DATE CREATED AUTHOR AUTHOR'S ORGANIZ ATION 05/27/2021 [facility] DATE CREATED AUTHOR AUTHOR'S ORGANIZ ATION 05/30/2022 [facility] DATE CREATED AUTHOR AUTHOR'S ORGANIZ ATION 07/17/2022 [facility] DATE CREATED AUTHOR AUTHOR'S ORGANIZ ATION 10/22/2022 [facility] DATE CREATED AUTHOR AUTHOR'S ORGANIZ ATION 07/17/2023 [facility] DATE CREATED AUTHOR AUTHOR'S ORGANIZ ATION 12/12/2023 [facility] EPIC Reason for Visit (unrecogniz ed section and content) Reason Comments Scheduled Induction Cytotec Induction Status Reason Specialty Diagnoses / Procedures Referre d By Contact Referred To Contact Diagnoses Encounter for induction of labor Term Nash Mera APRN - [facility] [address] [place] [address] [facility] Reason Comments Muscle Aches Ordered Prescriptions [...] 50 mL IVPB (COMPLETED) 900 mg, IntraVENous, RATING CLERK TO O.R., 1 dose, On Thu02/13/21 at [...] HALLE) 0740 (Given - Provider: Lila Mcintosh, HALLE)2100 (Due) enoxaparin (LOVENOX) injection 40 mg 40 mg, SubCUTAneous, DAILY, First dose on Megan 02/14/21 at 0745, 0724 (Given - Provider: Claudine Benavides, HALLE) 0739 (Given - Provider: Lila Mcintosh, HALLE) famotidine (PEPCID) injection 20 mg (COMPLETED) 20 [...] break., Post-op 0040 (Given - Provider: Deja A Milligan, RN)0400 (Due)1257 (Given - Provider: Lila Mcintosh, RN)2000 (Due) ketorolac (TORADOL) injection 30 mg (COMPLETED) 30 mg, IntraVENous, EVERY 6 HOURS, First dose on Megan 02/14/21 at 0100, For 4 doses, Do not administer for more than 5 days., 0037 (Given - Provider: Marlene Ceballos RN)0637 (Given - Provider: Bobbi Devi, RN)1236 (Given - Provider: Claudine Benavides, HALLE)195 (Given - Provider: Deja Villalobos RN) metoclopramide (REGLAN) injection 10 mg (COMPLETED) 10 mg, IntraVENous, ONCE, On Thu02/13/21 at 1745, For 1 dose, Give 60 minutes before surgery., Pre-op (day of surgery) 1735 (Given - Provider: Claudine Benavides, AHLLE) miSOPROStol (CYTOTEC) pre-split tablet TABS 25 mcg (CANCELED) 25 mcg, Vaginal, EVERY 4 HOURS, First dose on Thu02/12/21 at 1545, Place posterior fornix/vagina, insert every 3-6 hours PRN. Avoid tachysystole. Can administer Oxytocin 4 hours after last dose. Maximum of 6 doses in 24 hours., Labor and Delivery 0013 (Given - Provider: Marlene Ceballos RN)0451 (Given - Provider: Linette Lee RN)0745 (Due)1145 (Due)1545 (Due) vitamin 27-1 MG tablet 1 tablet 1 tablet, Oral, DAILY, First dose on Thu02/13/21 at 2015, Begin when normal bowel activity resumes., 195 (Not Given - Provider: Marlene Ceballos RN - Reason: Other) 0927 (Given - Provider: Claudine Benavides, HALLE) 0740 (Given - Provider: Lila Mcintosh, HALLE) sodium chloride flush 0.9 % injection 10 mL 10 mL, IntraVENous, EVERY 12 HOURS SCHEDULED (2 times per day), First dose on Thu02/13/21 at 2100, 2100 (Due) 0900 (Due)2100 (Due) 0900 (Due)2100 (Due) Mdfdpzd-Bqlkzb-Rhaam Pertussis (BOOSTRIX) injection 0.5 mL 0.5 mL, [...] Bag - Provider: Luther Silvestre APRN - BONDING MOLDER)1912 (Anesthesia Volume Adjustment - Provider: SAEID Sheppard CRNA) lactated ringers infusion IntraVENous, at 125 mL/hr, CONTINUOUS, Starting on Thu02/13/21 at 2015, 0055 (New Bag - Provider: Marlene Ceballos RN)0903 (New Bag - Provider: María Vitale, HALLE) oxytocin (PITOCIN) 30 units in [...] every 2-3 minutes with cervical changes or [place] units (MVU) greater than 200 in a [...] to perineum 1204 (Given - Provider: Claudine Benavidse RN) calcium carbonate (TUMS) chewable tablet 1,000 mg (CANCELED) 1,000 mg, Oral, 3 TIMES DAILY PRN, Heartburn, Starting on Thu02/13/21 at 0027 0045 (Given - Provider: Marlene Ceballos RN) carboprost (HEMABATE) injection 250 mcg 250 mcg, IntraMUSCular, PRN, bleeding, Starting on Thu02/13/21 at 194, May repeat every 15 minutes up to a cumulative maximum dose of 1000 mcg, at physician's request., Post-op diphenhydrAMINE (BENADRYL) injection 25 mg 25 mg, IntraVENous, EVERY 6 HOURS PRN, Itching, Hives, Starting on Thu02/13/21 at 1948, lansinoh lanolin ointment Topical, EVERY 1 HOUR [...] or prosecute any alcohol or drug abuse patient.[facility] FOR RECORDS PERTAINING TO PATIENTS [...] BE BASED ON THE PRIMARY CLINICAL RECORDS. [facility] [employer] [facility]. provides no warranty or guarantee of the accuracy or completeness of information in this document.
--- NOTE | 2023-12-23 07:31 | PM.OBHP ---
OB - H&P: HPI History of Present Illness Chief complaint: : 4 Para: 1 Gestational age based on last menstrual period: 39.0 History of Present Dating criteria: LMP confirmed by 1st trimester US care: good care Ultrasounds: normal 1st trimester US and normal mid trimester US Narrative: anxiety, hyperemesis w zofran pump in early Labs Blood type: A (+) positive Rubella: immune RPR/VDLR: nonreactive GBS status: negative HBsAG: negative Review of Systems ROS Status of ROS: 10 or more systems reviewed and unremarkable except as noted in history and below PFSH PFS Social History Smoking status: Heavy tobacco smoker Meds Home Medications and Allergies Allergies Allergy/AdvReac Type Severity Reaction Status Date / Time morphine Allergy Severe Hives Verified 04/20/23 17:46 Penicillins Allergy Severe Verified 04/20/23 17:46 Exam Constitutional Documenting provider has reviewed patient's vital signs: yes Common normals: no apparent distress Exam limitations: altered mental status General appearance: cooperative, comfortable, well kempt and well developed Orientation/consciousness: Yes awake, Yes oriented to person, Yes oriented to place and Yes oriented to time HENMT Common normals: normocephalic Eye Common normals: EOMs intact bilaterally Neck & C-Spine Common normals: full ROM Lymph Lymphatic: no lymphadenopathy noted Chest Common normals: inspection of chest normal Respiratory Common normals: normal respiratory effort Cardio Common normals: regular rate and regular rhythm Rate: regular rate Rhythm: regular rhythm GI Common normals: Normal to inspection, nondistended, normoactive bowel sounds present Inspection: normal to inspection Auscultation: normoactive bowel sounds Palpation: soft and firm Common normals: no CVA tenderness Back & Pelvis Common normals: no CVA tenderness Extremity Common normals: normal to inspection Neuro Common normals: oriented x3 Sensorium/orientation: awake, alert, oriented to person, oriented to place and oriented to time Psych Common normals: mental status grossly normal, thought process normal, cooperative, affect normal, speech normal, activity/motor behavior normal, denies hallucinations, denies homicidal ideation and denies suicidal ideation Attitude: calm and engaged Thought process: normal thought process OB - A/P Additional Plan Induction method: none Plan: expectant management Urinary Catheter Management Urinary Catheter Management Urethral: Cath placed during this visit: no Urethral indwelling: Yes Reason for continuing: prolonged immobilization
[2023-12-23] MEDS: LACTATED RINGER'S SOLUTION 1,000 ML 125 ML IV (07:53)
[2023-12-23 08:04] LABS: Basophils Percent Auto 0.3 % (0.2-2.0); Eosinophils Absolute Auto 0.3 10^3/uL (0.0-0.7); Eosinophils Percent Auto 3.7 % (0.9-7.0); Hematocrit 32.2 % (36.0-48.0); Hemoglobin 10.3 g/dL (12.0-16.0); Immature Granulocytes Abs Auto 0.05 10^3/uL (0.00-0.03); Immature Granulocytes Pct Auto 0.7 % (0.0-0.5); Lymphocytes Absolute Auto 1.7 10^3/uL (1.2-3.8); Mean Corpuscular Hemoglobin 28.2 pg (26.7-34.0); Mean Corpuscular Volume 88.2 fL (81.0-99.0); Mean Platelet Volume 10.8 fL (9.5-13.5); Monocytes Absolute Auto 0.5 10^3/uL (0.3-0.8); Monocytes Percent Auto 6.8 % (1.7-12.0); Neutrophils Absolute Auto 4.6 10^3/uL (1.4-6.5); Neutrophils Percent Auto 64.5 % (43.0-75.0); Platelet Count 232 10^3/uL (150-450); Red Blood Count 3.65 10^6/uL (4.20-5.40); Red Cell Distribution Width 13.5 % (11.0-15.0); White Blood Count 7.1 10^3/uL (4.0-11.0)
[2023-12-23 08:15] LABS: Bilirubin Urine NEGATIVE (NEGATIVE); Blood Urine NEGATIVE (NEGATIVE); Clarity Urine CLEAR (CLEAR); Color Urine LT. YELLOW (YELLOW); Glucose Urine UA NEGATIVE (NEGATIVE); Ketones Urine NEGATIVE (NEGATIVE); Leukocyte Esterase Urine SMALL (NEGATIVE); Nitrite Urine NEGATIVE (NEGATIVE); Protein Urine NEGATIVE (NEG/TRACE); Specific Gravity Urine >=1.030 (1.005-1.025)
[2023-12-23 08:22] LABS: Amphetamine Screen Urine NEGATIVE (NEGATIVE); Barbiturates Screen Urine NEGATIVE (NEGATIVE); Benzodiazepines Screen Urine NEGATIVE (NEGATIVE); Buprenorphine Screen Urine NEGATIVE (NEGATIVE); Cannabinoid Screen Urine NEGATIVE (NEGATIVE); Cocaine Screen Urine NEGATIVE (NEGATIVE); Methadone Screen Urine NEGATIVE (NEGATIVE); Methamphetamines Screen Urine NEGATIVE (NEGATIVE); Opiate Screen Urine NEGATIVE (NEGATIVE); Oxycodone Screen Urine NEGATIVE (NEGATIVE); Phencyclidine Screen Urine NEGATIVE (NEGATIVE); Tricyclic Antidepressant Urine NEGATIVE (NEGATIVE)
[2023-12-23 08:43] LABS: Bacteria Urine LARGE #/HPF (NONE SEEN); Cast Seen? NONE SEEN #/LPF (NONE SEEN); Crystals Seen? None Seen #/HPF (None Seen); Mucus Urine NONE SEEN (NONE SEEN); RBC Urine 0-2 #/HPF (0-2); Squamous Epithelial Cell Urine MODERATE #/LPF (NONE/RARE); Urine Culture Indicated YES
[2023-12-23] MEDS: FAMOTIDINE/PF 20 MG/2 ML VIAL IV (09:28)
[2023-12-23] MEDS: METOCLOPRAMIDE HCL 10 MG/2 ML VIAL IVP (09:28)
[2023-12-23] MEDS: CITRIC ACID/SODIUM CITRATE 30 ML SOLUTION ORACIT SHOHL'S SOLN PO (09:28)
[2023-12-23] MEDS: LACTATED RINGER'S SOLUTION 1,000 ML 1000 ML IV ×3 (09:40→10:56)
[2023-12-23] MEDS: CLINDAMYCIN PHOSPHATE/D5W 900 MG/50 ML PIGGYBACK 100 MG IV ×2 (09:46→15:43)
--- NOTE | 2023-12-23 10:46 | PM.ONB ---
Brief Operative Note Date of procedure: 12/23/23 Pre-op diagnosis general: iup at 39wks, previous c/s Post-op diagnosis: same as pre-op Procedure: NAME OF PROCEDURE: [ section ] PROCEDURE: Patient was taken back to the Operating Room where she was given a spinal anesthesia with Duramorph without difficulty. She was prepped and draped in the normal sterile fashion. A Pfannenstiel skin incision was then made 2 cm above the symphysis pubis and carried down to underlying rectus fascia using a Bovie. The fascia was incised in the midline and extended laterally using Cantor scissors. Two Dasha clamps were placed on the superior aspect of the fascia and dissected off the underlying rectus muscles. The same was performed on the inferior aspect as well. The muscles were then in the midline. Peritoneum was identified and entered bluntly. The peritoneum was then extended superiorly and inferiorly with good visualization of the bladder. The bladder blade was inserted. A low transverse incision was made on the patient's uterus and extended laterally digitally. The was then delivered atraumatically after the bladder blade was removed in the cephalic position. The cord was clamped and cut. Cord blood was obtained. The was handed off to awaiting team. The patient's placenta was spontaneously delivered. The uterus was then exteriorized. The uterus was cleared of all clots and debris. The bladder blade was reinserted. The patient's uterine incision was closed using #0 Vicryl in a running lock fashion. Excellent hemostasis was assured. The uterus was then returned to the patient's abdomen. The patient's abdomen was copiously irrigated using warm saline. Peritoneal gutters were cleared of all clots and debris. Again excellent hemostasis was assured. The patient's peritoneum was closed using 3-0 Vicryl in a running fashion. The patient's fascia was closed using #0 Vicryl in a running fashion. The patient's skin was closed using 4-0 Vicryl subcuticularly. The patient tolerated the procedure well. Sponge, lap, and needle counts were correct x2. The patient was taken to the Recovery Room in stable condition. Anesthesia: spinal Surgeon: Tay Dominique Interactive Art Director: NASH VO Estimated blood loss (mL): 575 Pathology: none sent Condition: stable Disposition: floor Urinary Catheter Management Urinary Catheter Management Urethral: Cath placed during this visit: no Urethral indwelling: Yes
--- NOTE | 2023-12-23 10:48 | PM.OBPRCCS ---
Procedure Pre-op/Post-op diagnoses: Pre-Op/Post-Op Diagnoses Operation Date: 12/23/23 08:50 <No data on this case meets the specified criteria> Procedure: Procedures Operation Date: 12/23/23 08:50 Actual Procedure Side Surgeon p Repeat Not Applicable Tay Dominique DO Carding Utility Tender: NASH VO Estimated blood loss (mL): 575 Disposition: floor Anesthesia type: Spinal
[2023-12-23] MEDS: BUPIVACAINE LIPOSOME/PF 266 MG/13.3 ML VIAL INJ (11:05)
--- NOTE | 2023-12-23 11:18 | P.EN_ITS ---
Event Note Event Note: career services assistant note: I first assisted Dr Dominique with repeat section. I closed the SQ layer with 3-0 vicryl without difficulty. I then closed the incision with 4-0 vicryl without difficulty. Hemostasis noted at the completion of the case. Patient tolerated procedure well.
[2023-12-23] MEDS: OXYTOCIN/0.9 % SODIUM CHLORIDE 20 UNITS/1,000 ML PLAST..BAG 125 UNIT IV (11:21)
[2023-12-23] MEDS: KETOROLAC TROMETHAMINE 30 MG/ML VIAL IVP ×2 (16:43→22:50)
[2023-12-23] MEDS: ACETAMINOPHEN 500 MG TABLET 1000 MG PO (18:21)
--- NOTE | 2023-12-23 18:41 | PC.NURSE ---
All charting reviewed from 7a-730 p from Jocelyn Fonseca and verified.
[2023-12-23] MEDS: ONDANSETRON PF 4 MG/2 ML VIAL IV (20:28)
[2023-12-23] MEDS: CALCIUM CARBONATE 500 MG (200MG ELEMENTAL) TAB CHEW PO (20:43)
[2023-12-23] MEDS: SERTRALINE HCL 50 MG TABLET 25 MG PO (22:49)
[2023-12-23] MEDS: ENOXAPARIN SODIUM 40 MG/0.4 ML SYRINGE SUBQ (22:50)
[2023-12-24] VITALS (7 sets, daily range): BP systolic 102–122; BP diastolic 56–81; PULSE 75–91; TEMP 35.4–36.6
[2023-12-24] MEDS: ACETAMINOPHEN 500 MG TABLET 1000 MG PO ×3 (02:45→22:00)
--- NOTE | 2023-12-24 04:28 | P.OBPN_ITS ---
OB - PN: Subj Subjective Patient comments: no complaints and pain well controlled [place] status: doing well Exam Constitutional Vital Signs, click to edit/add: Last Vital Signs Temp 97.9 F 12/24/23 00:25 Pulse 76 12/24/23 00:24 Resp 16 12/24/23 00:25 BP 102/56 12/24/23 00:24 Pulse Ox 98 12/23/23 14:00 O2 Del Method Room Air 12/24/23 00:25 Documenting provider has reviewed patient's vital signs: yes Common normals: no apparent distress Respiratory Common normals: clear to auscultation bilaterally Cardio Common normals: regular rate and regular rhythm GI Common normals: Normal to inspection, nondistended, normoactive bowel sounds present Extremity Common normals: no clubbing, cyanosis or edema Results Labs Labs: Short CBC 12/23/23 Range/Units 07:40 WBC 7.1 (4.0-11.0) 10^3/uL Hgb 10.3 L (12.0-16.0) g/dL Hct 32.2 L (36.0-48.0) % Plt Count 232 (150-450) 10^3/uL Urine 12/23/23 Range/Units 07:45 Urine Color Lt. yellow (YELLOW) Urine Clarity Clear (CLEAR) Urine pH 6.0 (5.0-9.0) Ur Specific [place] >=1.030 A (1.005-1.025) Urine Protein Negative (NEG/TRACE) mg/dL Urine Glucose (UA) Negative (NEGATIVE) mg/dL Urinary Catheter Management Urinary Catheter Management Urethral: Cath placed during this visit: yes, but has since been removed by the nurse Urethral indwelling: Yes Insertion date: 12/23/23 Insertion time: 10:00 Removal date: 12/23/23 Removal time: 17:10 OB - PN: A/P Plan - day: 1 Plan: routine postop care Time Spent with Patient Time: Total time spent is greater than 50% in coordination of care (as documented) at patient's floor/unit and/or counseling patient: Total time spent with greater than 50% in coordination of care (as documented) at patient's floor/unit and/or counseling patient: less than 15 minutes
[2023-12-24] MEDS: CALCIUM CARBONATE 500 MG (200MG ELEMENTAL) TAB CHEW PO (04:48)
[2023-12-24] MEDS: KETOROLAC TROMETHAMINE 30 MG/ML VIAL IVP (04:48)
[2023-12-24 06:05] LABS: Basophils Percent Auto 0.1 % (0.2-2.0); Eosinophils Absolute Auto 0.1 10^3/uL (0.0-0.7); Eosinophils Percent Auto 1.1 % (0.9-7.0); Hematocrit 27.1 % (36.0-48.0); Hemoglobin 8.6 g/dL (12.0-16.0); Immature Granulocytes Abs Auto 0.04 10^3/uL (0.00-0.03); Immature Granulocytes Pct Auto 0.4 % (0.0-0.5); Lymphocytes Absolute Auto 1.7 10^3/uL (1.2-3.8); Lymphocytes Percent Auto 18.1 % (20.5-60.0); Mean Corpuscular HGB Conc 31.7 g/dL (29.9-35.2); Mean Corpuscular Volume 88.3 fL (81.0-99.0); Monocytes Absolute Auto 0.6 10^3/uL (0.3-0.8); Monocytes Percent Auto 6.8 % (1.7-12.0); Neutrophils Absolute Auto 6.9 10^3/uL (1.4-6.5); Neutrophils Percent Auto 73.5 % (43.0-75.0); Platelet Count 169 10^3/uL (150-450); Red Blood Count 3.07 10^6/uL (4.20-5.40); Red Cell Distribution Width 13.6 % (11.0-15.0); White Blood Count 9.4 10^3/uL (4.0-11.0)
[2023-12-24] MEDS: SIMETHICONE 80 MG TAB.CHEW PO (09:09)
[2023-12-24] MEDS: DOCUSATE SODIUM 100 MG CAPSULE PO ×2 (09:09→21:59)
[2023-12-24] MEDS: SERTRALINE HCL 50 MG TABLET 25 MG PO (21:59)
[2023-12-24] MEDS: IBUPROFEN 400 MG TABLET 800 MG PO (22:00)
[2023-12-25 01:55] VITALS: BP 108/66; PULSE 81; TEMP 36.9
--- NOTE | 2023-12-25 04:20 | P.OBPN_ITS ---
OB - PN: Subj Subjective Patient comments: no complaints and pain well controlled [place] status: doing well Exam Constitutional Vital Signs, click to edit/add: Last Vital Signs Temp 96.6 F L 12/24/23 16:32 Pulse 81 12/25/23 01:55 Resp 17 12/24/23 16:37 BP 108/66 12/25/23 01:55 Pulse Ox 98 12/23/23 14:00 O2 Del Method Room Air 12/24/23 16:37 Documenting provider has reviewed patient's vital signs: yes Common normals: no apparent distress Respiratory Common normals: clear to auscultation bilaterally Cardio Common normals: regular rate and regular rhythm GI Common normals: Normal to inspection, nondistended, normoactive bowel sounds present Extremity Common normals: no calf tenderness Results Labs Labs: Short CBC 12/24/23 Range/Units 05:50 WBC 9.4 (4.0-11.0) 10^3/uL Hgb 8.6 L (12.0-16.0) g/dL Hct 27.1 L (36.0-48.0) % Plt Count 169 (150-450) 10^3/uL Urinary Catheter Management Urinary Catheter Management Urethral: Cath placed during this visit: yes, but has since been removed by the nurse Urethral indwelling: Yes Insertion date: 12/23/23 Insertion time: 10:00 Removal date: 12/23/23 Removal time: 17:10 OB - PN: A/P Plan - day: 2 Plan: routine postop care, discharge home and other (fu 1wk) Time Spent with Patient Time: Total time spent is greater than 50% in coordination of care (as documented) at patient's floor/unit and/or counseling patient: Total time spent with greater than 50% in coordination of care (as documented) at patient's floor/unit and/or counseling patient: less than 15 minutes
[2023-12-25] MEDS: IBUPROFEN 400 MG TABLET 800 MG PO (09:47)
[2023-12-25] MEDS: DOCUSATE SODIUM 100 MG CAPSULE PO (09:48)
[2023-12-25 09:54] VITALS: BP 119/75; PULSE 86; TEMP 37.1
== END 2023-12-25 12:45 | disposition home or self-care (01) | DRG 540 ==
PROVIDERS: Obstetrics & Gynecology; Admitting Provider Midwife; Visit Provider Midwife
PROC: 10D00Z1 Extraction of Products of Conception, Low, Open Approach (ICD-10-PCS; CPT 59514; principal; 2023-12-23 08:50)
DX: O34.211 Maternal care for low transverse scar from previous cesarean delivery (principal); Z3A.39 39 weeks gestation of pregnancy; Z37.0 Single live birth; Z90.49 Acquired absence of other specified parts of digestive tract; O99.334 Smoking (tobacco) complicating childbirth; F17.200 Nicotine dependence, unspecified, uncomplicated
CPT/HCPCS: 36415; 51702; 64488; 80307; 81001; 85025; 86850; 86900; 86901; 87086; 94667; 96372; 96374; 96375; 96376; J0131; J0665; J0736; J1100; J1170; J1650; J1885; J2371; J2405; J2590; J2765

== ENCOUNTER 2024-01-11 08:28 | Outpatient (OUT) | payer OTHER, SELFPAY ==
--- OUTSIDE RECORDS SUMMARY | 2024-01-11 08:32 | XMS_ITS | CCD ---
Author Organization [facility] Care Team Providers Care X Ray Service Engineer Name Role Phone BRIGITTE BA Marvel Attending Unavailable Unavailable Primary Care Provider UnavailNASH Mortensen Attending Unavailable FLORO NASH Admitting Unavailable SELF, REFERRED Referring Unavailable [...] Howie Plata Jr Admitting Unavailable FLORO, NASH Marvel Attending Unavailable FLORO, NASH L Attending Unavailable [...] Attending Unavailable FLORO, NASH L Referring Unavailable Allergies Allergy Classification Reported Allergen(s) Allergy Type Date of Onset Reaction(s) Facility (4 sources) Penicillins; Translations: [PENICILLINS] Propensity to adverse reactions to drug 9 Other (See Comments) PeopLease (4 sources) Morphine; Translations: [MORPHINE] Drug Allergy 1 Hives [facility] Repository (2 sources) Penicillin Drug Allergy 0 [facility]ository (3 sources) Morphine Drug Allergy 2 Hives [facility] (1 source) Penicillins Propensity to adverse reactions to drug 9 Unknown [facility] (1 source) Morphine Drug Allergy 1 [facility] Repository (2 sources) Amoxicillin Drug Allergy [facility] Other (1 source) Amoxicillin Drug Allergy 4 [facility] Repository (1 source) Morphine Drug Allergy 4 [facility] Repository (1 source) Penicillins Drug allergy (disorder) 3 [facility] Repository Medications Current Medications Medication Drug [...] mg docusate sodium 50 mg / sennosides, snf 8.6 mg oral tablet (1 source) Start: [...] above: Take 1 tablet by danny th once daily. hydrOXYzine hydrochloride 25 mg oral [...] infection (1 source) Acute gastroenteropathy due to [place] agent; Translations: [ACUTE GASTROENTROPATHY NORWALK AGNT] Onset: [...] , with heart rate of 126 bpm. Tarrants-rump length measures 0.95 cm, yielding an estimated [...] Available HCG,Quantitativeon 3 HCG,Quantitative 25.40 m[iU]/mL Normal [facility] Comment on above: Result Comment: Appr oximate Approximate hCG Gestational Age Range (mIU/ml) (weeks) 0.2-1 5-50 1-2 50-500 2-3 100-5,000 3-4 500-10,000 4-5 1,000-50,000 5-6 10,000-100,000 6-8 15,000-200,000 8-12 10,000-100,000 PERFORMED BY: [place] [address] PATHOLOGIST LICENSED PRACTICAL VOCATIONAL NURSE ARJUN HASTINGS M.D. Performed By: #### H CGQNT #### [place] [address] [place] HCG,Urineon 04-21-2023 Beta HCG ( test) Ql (U) Negative Normal [facility] Comment on above: Order Comment: Name Collection Type:: Clean-Voided Midstream Result Comment: PERF ORMED BY: [place] [address] PATHOLOGIST LICENSED PRACTICAL VOCATIONAL NURSE ARJUN HASTINGS M.D. Performed By: #### U A, UHCG #### [address] Urinalysison 04-21-2023 Appearance (U) Clear Normal Clear [facility] Comment on above: Order Comment: Name Collection Type:: Clean-Voided Midstream Performed By: #### U A, UHCG #### [place] [address] [place] Bilirubin,Urine Negative Normal Negative [facility] Comment on above: Order Comment: Name Collection Type:: Clean-Voided Midstream Performed By: #### U A, UHCG #### [place] [address] [place] Color (U) Yellow Normal Yellow [facility] Comment on above: Order Comment: Name Collection Type:: Clean-Voided Midstream Performed By: #### U A, UHCG #### [place] [address] [place] Glucose Ql (U) Normal Normal Normal [facility] Comment on above: Order Comment: Name Collection Type:: Clean-Voided Midstream Performed By: #### U A, UHCG #### [facility] [address] [place] [address] Ketones Ql (U) Negative Normal Negative [facility] Comment on above: Order Comment: Name Collection Type:: Clean-Voided Midstream Performed By: #### U A, UHCG #### [address] Leukocyte esterase Test strip Ql (U) Negative Normal Negative [facility] Comment on above: Order Comment: Name Collection Type:: Clean-Voided Midstream Performed By: #### U A, UHCG #### [address] Nitrite,Urine Negative Normal Negative [facility] Comment on above: Order Comment: Name Collection Type:: Clean-Voided Midstream Performed By: #### U A, UHCG #### [address] Occult Blood,Urine Negative Normal Negative [facility] Comment on above: Order Comment: Name Collection Type:: Clean-Voided Midstream Performed By: #### U A, UHCG #### [address] pH (U) 7.5 [pH] Normal 5.0-9.0 [facility] Comment on above: Order Comment: Name Collection Type:: Clean-Voided Midstream Performed By: #### U A, UHCG #### [facility] [address] [place] [address] [place] Protein,Urine Negative Normal Negative [facility] Comment on above: Order Comment: Name Collection Type:: Clean-Voided Midstream Performed By: #### U A, UHCG #### [place] [address] [place] Specificy Norphlet,Urine 1.011 Normal 1.001-1.030 [facility] Comment on above: Order Comment: Name Collection Type:: Clean-Voided Midstream Performed By: #### U A, UHCG #### [facility] [address] Urobilinogen,Urine Normal Normal Normal [facility] Comment on above: Order Comment: Name Collection Type:: Clean-Voided Midstream Performed By: #### U A, UHCG #### [facility] [address] AMYLASEon 10-19-2022 Amylase [Catalytic activity/Vol] 42 U/L Normal 25-115 [facility] Comment on above: Performed By: #### L IPA, ROSS, CMP #### [facility] [address] [place] [address] Dr. Radha Garcia CBC AUTO DIFFon 10-19-2022 BASO # 0.0 103/ul Normal 0.0-0.1 [facility] Comment on above: Performed By: #### C BC #### [facility] [address] [place] [address] Dr. Radha Garcia Basophils/100 WBC (Bld) 0.4 % Normal 0.2-2.0 [facility] Comment on above: Performed By: #### C BC #### [facility] [address] [place] [address] Dr. Radha Garcia EO # 0.1 103/ul Normal 0.0-0.7 [facility] Comment on above: Performed By: #### C BC #### [facility] [address] [place] [address] Dr. Radha Garcia Eosinophils/100 WBC (Bld) 2.9 % Normal 0.9-7.0 [facility] Comment on above: Performed By: #### C BC #### [facility] [address] [place] [address] Dr. Radha Garcia Erythrocyte distribution width (RBC) [Ratio] 12.6 % Normal 11.0-15.0 [facility] Comment on above: Performed By: #### C BC #### [facility] [address] [place] [address] Dr. Radha Garcia Hematocrit (Bld) [Volume fraction] 41.9 % Normal 36.0-48.0 [facility] Comment on above: Performed By: #### C BC #### [facility] [address] [place] [address] Dr. Radha Garcia Hemoglobin (Bld) [Mass/Vol] 13.8 g/dL Normal 12.0-16.0 [facility] Comment on above: Performed By: #### C BC #### [facility] [address] [place] [address] Dr. Radha Garcia IG # 0.01 10e3/ul Normal 0.00-0.03 [facility] Comment on above: Performed By: #### C BC #### [facility] [address] [place] [address] Dr. Radha Garcia IG % 0.2 % Normal 0.0-0.5 [facility] Comment on above: Performed By: #### C BC #### [facility] [address] [place] [address] Dr. Radha Garcia LYMPH # 1.2 103/ul Normal 1.2-3.8 [facility] Comment on above: Performed By: #### C BC #### [facility] [address] [place] [address] Dr. Radha Garcia Lymphocytes/100 WBC (Bld) 25.6 % Normal 20.5-60.0 [facility] Comment on above: Performed By: #### C BC #### [facility] [address] [place] [address] Dr. Radha Garcia MANUAL DIFF REQ NO Normal [facility] Comment on above: Performed By: #### C BC #### [facility] [address] [place] [address] Dr. Radha Garcia MCH (RBC) [Entitic mass] 29.9 pg Normal 26.7-34.0 [facility] Comment on above: Performed By: #### C BC #### [facility] [address] [place] [address] Dr. Radha Garcia MCHC (RBC) [Mass/Vol] 32.9 g/dL Normal 29.9-35.2 [facility] Comment on above: Performed By: #### C BC #### [facility] [address] [address] [address] Radha Garcia MCV (RBC) [Entitic vol] 90.9 fL Normal 81.0-99.0 [facility] Comment on above: Performed By: #### C BC #### [facility] [address] [address] [address] Radha Garcia MONO # 0.3 103/ul Normal 0.3-0.8 [facility] Comment on above: Performed By: #### C BC #### [facility] [address] [place] [address] Dr. Radha Garcia Monocytes/100 WBC (Bld) 6.5 % Normal 1.7-12.0 [facility] Comment on above: Performed By: #### C BC #### [facility] [address] [place] [address] Dr. Radha Garcia NEUT # 2.9 103/ul Normal 1.4-6.5 [facility] Comment on above: Performed By: #### C BC #### [facility] [address] [place] [address] Dr. Radha Garcia Neutrophils/100 WBC (Bld) 64.4 % Normal 43.0-75.0 [facility] Comment on above: Performed By: #### C BC #### [facility] [address] [place] [address] Dr. Radha Garcia Platelet mean volume (Bld) [Entitic vol] 10.6 fL Normal 9.5-13.5 [facility] Comment on above: Performed By: #### C BC #### [facility] [address] [place] [address] Dr. Radha Garcia PLT 246 103/ul Normal 150-450 [facility] Comment on above: Performed By: #### C BC #### [facility] [address] [place] [address] Dr. Radha Garcia RBC 4.61 106/ul Normal 4.20-5.40 [facility] Comment on above: Performed By: #### C BC #### [facility] [address] [place] [address] Dr. Radha Garcia WBC 4.5 103/ul Normal 4.0-11.0 [facility] Comment on above: Performed By: #### C BC #### [facility] [address] [place] [address] Dr. Radha Garcia GI PANEL (PCR)on 10-19-2022 Adenovirus F 40/41 Not detected Normal NOT DETECTED [facility] Comment on above: Performed By: #### G IPANEL #### [facility] [address] [place] [address] Dr. Radha Garcia Astrovirus Not detected Normal NOT DETECTED [facility] Comment on above: Performed By: #### G IPANEL #### [facility] [address] [place] [address] Dr. Radha Pike. Diff toxin A/B Not detected Normal NOT DETECTED [facility] Comment on above: Performed By: #### G IPANEL #### [facility] [address] [place] [address] Dr. Radha Garcia Campylobacter Not detected Normal NOT DETECTED [facility] Comment on above: Performed By: #### G IPANEL #### [facility] [address] [place] [address] Dr. Radha Garcia Cryptosporidium Not detected Normal NOT DETECTED [facility] Comment on above: Performed By: #### G IPANEL #### [facility] [address] [place] [address] Dr. Radha Garcia Cyclos. Cayetanensis Not detected Normal NOT DETECTED [facility] Comment on above: Performed By: #### G IPANEL #### [facility] [address] [place] [address] Dr. Radha Garcia E. Coli O157 Not Applicable Normal Not Applicable [facility] Comment on above: Performed By: #### G IPANEL #### [facility] [address] [place] [address] Dr. Radha Garcia E. histolytica Not detected Normal NOT DETECTED [facility] Comment on above: Performed By: #### G IPANEL #### [facility] [address] [place] [address] Dr. Radha Garcia EAEC Not detected Normal NOT DETECTED [facility] Comment on above: Performed By: #### G IPANEL #### [facility] [address] [place] [address] Dr. Radha Garcia EIEC Not detected Normal NOT DETECTED [facility] Comment on above: Performed By: #### G IPANEL #### [facility] [address] [place] [address] Dr. Radha Garcia EPEC Not detected Normal NOT DETECTED [facility] Comment on above: Performed By: #### G IPANEL #### [facility] [address] [place] [address] Dr. Radha Garcia ETEC Not detected Normal NOT DETECTED [facility] Comment on above: Performed By: #### G IPANEL #### [facility] [address] [place] [address] Dr. Radha Valdez Lamblia Not detected Normal NOT DETECTED [facility] Comment on above: Performed By: #### G IPANEL #### [facility] [address] [place] [address] Dr. Radha SANTANA CONTROLS PASSED Normal [facility] Comment on above: Performed By: #### G IPANEL #### [facility] [address] [place] [address] Dr. Radha MALIK [facility] HEADER GI PANEL BACTERIA Normal T [facility] Comment on above: Performed By: #### G IPANEL #### [facility] [address] [place] [address] Dr. Radha LOUIS ECOLI GI PANEL DIARRHEAGENIC E.COLI / SHIGELLA Normal [facility] Comment on above: Performed By: #### G IPANEL #### [facility] [address] [place] [address] Dr. Radha LOUIS INFO SEE BELOW Normal [facility] Comment on above: Result Comment: EAEC - Enteroaggregative E. Coli EPEC- Enteropathogenic E. Coli ETEC- Enterotoxigenic E. Coli lt/st STEC- Shigella-like toxin-producing E. Coli stx1/stx2 EIEC- Shigella/Enteroinvasive E. Coli Performed By: #### G IPANEL #### [facility] [address] [place] [address] Dr. Radha LOUSI PARASITES GI PANEL PARASITES Normal [facility] Comment on above: Performed By: #### G IPANEL #### [facility] [address] [address] [address] Radha LOUIS VIRUS GI PANEL VIRUSES Normal [facility] Comment on above: Performed By: #### G IPANEL #### [facility] [address] [place] [address] Dr. Radha Garcia Norovirus GI/GII Detected Abnormal NOT DETECTED [facility] Comment on above: Performed By: #### G IPANEL #### [facility] [address] [place] [address] Dr. Radha Garcia P. Shigelloides Not detected Normal NOT DETECTED [facility] Comment on above: Performed By: #### G IPANEL #### [facility] [address] [place] [address] Dr. Radha Garcia Rotavirus A Not detected Normal NOT DETECTED [facility] Comment on above: Performed By: #### G IPANEL #### [facility] [address] [place] [address] Dr. Radha Garcia Salmonella Not detected Normal NOT DETECTED [facility] Comment on above: Performed By: #### G IPANEL #### [facility] [address] [place] [address] Dr. Radha Garcia Sapovirus Not detected Normal NOT DETECTED [facility] Comment on above: Performed By: #### G IPANEL #### [facility] [address] [place] [address] Dr. Radha Garcia STEC Not detected Normal NOT DETECTED [facility] Comment on above: Performed By: #### G IPANEL #### [facility] [address] [address] [address] Radha Garcia Vibrio Not detected Normal NOT DETECTED [facility] Comment on above: Performed By: #### G IPANEL #### [facility] [address] [place] [address] Dr. Radha Garcia Vibrio Cholera Not detected Normal NOT DETECTED [facility] Comment on above: Performed By: #### G IPANEL #### [facility] [address] [place] [address] Dr. Radha Garcia Y. Enterocolitica Not detected Normal NOT DETECTED [facility] Comment on above: Performed By: #### G IPANEL #### [facility] [address] [place] [address] Dr. Radha Garcia LIPASEon 10-19-2022 Lipase [Catalytic activity/Vol] 54.0 U/L Critically low 73.0-393.0 [facility] Comment on above: Performed By: #### L SAMUEL ROSS, CMP #### [facility] [address] [place] [address] Dr. Radha Garcia PROF 14(COMP METB)on 023 Albumin [Mass/Vol] 3.3 g/dL Critically low 3.4-5.0 [facility] Comment on above: Performed By: #### L ROSS BAKER, CMP #### [facility] [address] [place] [address] Dr. Radha Garcia Albumin/Globulin [Mass ratio] 1.0 {ratio} Normal [facility] Comment on above: Performed By: #### L SAMUEL ROSS, CMP #### [facility] [address] [place] [address] Dr. Radha Garcia ALP [Catalytic activity/Vol] 58 U/L Normal 46-116 [facility] Comment on above: Performed By: #### L IPA ROSS, CMP #### [facility] [address] [place] [address] Dr. Radha Garcia ALT [Catalytic activity/Vol] 25 U/L Normal 14-59 [facility] Comment on above: Performed By: #### L IPA ROSS, CMP #### [facility] [address] [place] [address] Dr. Radha Garcia Anion gap [Moles/Vol] 14.5 mmol/L Normal [facility] Comment on above: Performed By: #### L ROSS BAKER, CMP #### [facility] [address] [place] [address] Dr. Radha Garcia AST [Catalytic activity/Vol] 19 U/L Normal 15-37 [facility] Comment on above: Performed By: #### L ROSS BAKER, CMP #### [facility] [address] [place] [address] Dr. Radha Garcia Bilirubin [Mass/Vol] 0.8 mg/dL Normal 0.2-1.0 [facility] Comment on above: Performed By: #### L ROSS BAKER, CMP #### [facility] [address] [place] [address] Dr. Radha Garcia Calcium [Mass/Vol] 8.4 mg/dL Critically low 8.5-10.1 [facility] Comment on above: Performed By: #### L ROSS BAKER, CMP #### [facility] [address] [place] [address] Dr. Radha Garcia Chloride [Moles/Vol] 107 mmol/L Normal 98-107 [facility] Comment on above: Performed By: #### L ROSS BAKER, CMP #### [facility] [address] [place] [address] Dr. Radha Garcia CO2 [Moles/Vol] 25.8 mmol/L Normal 21.0-32.0 [facility] Comment on above: Performed By: #### L ROSS BAKER, CMP #### [facility] [address] [place] [address] Dr. Radha Garcia Creatinine [Mass/Vol] 0.78 mg/dL Normal 0.55-1.02 [facility] Comment on above: Performed By: #### L ROSS BAKER, CMP #### [facility] [address] [place] [address] Dr. Radha Garcia EGFR-AF LITHUANIAN >60 Normal >=60 [facility] Comment on above: Performed By: #### L ROSS BAKER, CMP #### [facility] [address] [place] [address] Dr. Radha Garcia EGFR-NON AF LITHUANIAN >60 Normal >=60 [facility] Comment on above: Performed By: #### L ROSS BAKER, CMP #### [facility] [address] [address] [address] Radha Garcia Globulin (S) [Mass/Vol] 3.2 g/dL Normal T [facility] Comment on above: Performed By: #### L ROSS BAKER, CMP #### [facility] [address] [address] [address] Radha Garcia Glucose [Mass/Vol] 96 mg/dL Normal 74-106 [facility] Comment on above: Performed By: #### L ROSS BAKER, CMP #### [facility] [address] [address] [address] Radha Garcia Potassium [Moles/Vol] 3.3 mmol/L Critically low 3.5-5.1 [facility] Comment on above: Performed By: #### L ROSS BAKER, CMP #### [facility] [address] [address] [address] Radha Garcia Protein [Mass/Vol] 6.5 g/dL Normal 6.4-8.2 [facility] Comment on above: Performed By: #### L ROSS BAKER, CMP #### [facility] [address] [address] [address] Radha Garcia Sodium [Moles/Vol] 144 mmol/L Normal 136-145 [facility] Comment on above: Performed By: #### L ROSS BAKER, CMP #### [facility] [address] [address] [address] Radha Garcai Urea nitrogen [Mass/Vol] 6.0 mg/dL Critically low 7.0-18.0 [facility] Comment on above: Performed By: #### L ROSS BAKER, CMP #### [facility] [address] [address] [address] Radha Garcia Urea nitrogen/Creatinine [Mass ratio] 7.7 mg/mg Normal [facility] Comment on above: Performed By: #### L ROSS BAKER, CMP #### [facility] [address] [address] [address] Radha Garcia 36on 07-16-2022 36 Attempted to call an d schedule an EGD, but mail box is full unable to leave a message. Will mail her a letter. Normal [facility] 36on 06-06-2022 36 ----- Message from Mary Jo Javier MA sent at 05/26/2022 10:02 AM EST ----- For your review! Normal [facility] BETA HCG, QUANTITATIVE FOR E Don 05-25-2022 HCG.beta subunit Qn m[IU]/mL Normal <5.0 [facility] Comment on above: Order Comment: Speci men Type: BLOOD SPECIMEN Ordering Facility: [facility] Address: [address] [address] Result Comment: Nega tive Performed By: #### 2 4323-8, 3040-3, HCGED, 22211-0 #### [facility] CLIA [id number] [place] [address] [place] CBC W Auto Differential pane l (Bld)on 05-25-2022 Basophils (Bld) [#/Vol] 10*3/uL Normal <0.11 [facility] Comment on above: Order Comment: Speci men Type: BLOOD SPECIMEN Ordering Facility: [facility] Address: [address] [address] Performed By: #### 5 7021-8 #### [facility] CLIA [id number] [place] [address] [place] Basophils/100 WBC (Bld) 0.1 % Normal [facility] Comment on above: Order Comment: Speci men Type: BLOOD SPECIMEN Ordering Facility: [facility] Address: [address] [place] [address] Performed By: #### 5 7021-8 #### [facility] CLIA [id number] [address] [place] [address] [place] Differential cell count method Nom (Bld) Auto Normal [facility] Comment on above: Order Comment: Speci men Type: BLOOD SPECIMEN Ordering Facility: [facility] Address: [address] [address] Performed By: #### 5 7021-8 #### [facility] IA [id number] [address] [place] [address] [place] Eosinophils (Bld) [#/Vol] 0.08 10*3/uL Normal <0.46 [facility] Comment on above: Order Comment: Speci men Type: BLOOD SPECIMEN Ordering Facility: [facility] Address: [address] [address] Performed By: #### 5 7021-8 #### [facility] IA [id number] [address] [place] [address] [place] Eosinophils/100 WBC (Bld) 1.0 % Normal [facility] Comment on above: Order Comment: Speci men Type: BLOOD SPECIMEN Ordering Facility: [facility] Address: [address] [address] Performed By: #### 5 7021-8 #### [facility] IA [id number] [address] [place] [address] [place] Erythrocyte distribution width (RBC) [Ratio] 12.4 % Normal 11.5-15.0 [facility] Comment on above: Order Comment: Speci men Type: BLOOD SPECIMEN Ordering Facility: [facility] Address: [address] [address] Performed By: #### 5 7021-8 #### [facility] IA [id number] [address] [place] [address] [place] Hematocrit (Bld) [Volume fraction] 43.0 % Normal 36.0-46.0 [facility] Comment on above: Order Comment: Speci men Type: BLOOD SPECIMEN Ordering Facility: [facility] Address: [address] [address] Performed By: #### 5 7021-8 #### [facility] IA [id number] [address] [place] [address] [place] Hemoglobin (Bld) [Mass/Vol] 14.2 g/dL Normal 11.5-15.5 [facility] Comment on above: Order Comment: Speci men Type: BLOOD SPECIMEN Ordering Facility: [facility] Address: [address] [address] Performed By: #### 5 7021-8 #### [facility] CLIA [id number] [address] [place] [address] [place] Immature granulocytes (Bld) [#/Vol] 10*3/uL Normal <0.10 [facility] Comment on above: Order Comment: Speci men Type: BLOOD SPECIMEN Ordering Facility: [facility] Address: [address] [address] Performed By: #### 5 7021-8 #### [facility] CLIA [id number] [address] [place] [address] [place] Immature granulocytes/100 WBC (Bld) 0.2 % Normal [facility] Comment on above: Order Comment: Speci men Type: BLOOD SPECIMEN Ordering Facility: [facility] Address: [address] [address] Performed By: #### 5 7021-8 #### [facility] CLIA [id number] [address] [place] [address] [place] Lymphocytes (Bld) [#/Vol] 0.30 10*3/uL Low 1.00-4.00 [facility] Comment on above: Order Comment: Speci men Type: BLOOD SPECIMEN Ordering Facility: [facility] Address: [address] [address] Performed By: #### 5 7021-8 #### [facility] CLIA [id number] [address] [place] Lymphocytes/100 WBC (Bld) 3.6 % Normal [facility] Comment on above: Order Comment: Speci men Type: BLOOD SPECIMEN Ordering Facility: [facility] Address: [address] [address] Performed By: #### 5 7021-8 #### [facility] CLIA [id number] [address] [place] MCH (RBC) [Entitic mass] 28.7 pg Normal 26.0-34.0 [facility] Comment on above: Order Comment: Speci men Type: BLOOD SPECIMEN Ordering Facility: [facility] Address: [address] [address] Performed By: #### 5 7021-8 #### [facility] IA [id number] [address] [place] MCHC (RBC) [Mass/Vol] 33.0 g/dL Normal 30.5-36.0 [facility] Comment on above: Order Comment: Speci men Type: BLOOD SPECIMEN Ordering Facility: [facility] Address: [address] [place] [address] Performed By: #### 5 7021-8 #### [facility] [id number] [address] [place] [address] [place] MCV (RBC) [Entitic vol] 86.9 fL Normal 80.0-100.0 [facility] Comment on above: Order Comment: Speci men Type: BLOOD SPECIMEN Ordering Facility: [facility] Address: [address] [place] [address] Performed By: #### 5 7021-8 #### [facility] [id number] [place] [address] [place] Monocytes (Bld) [#/Vol] 0.19 10*3/uL Normal <0.87 [facility] Comment on above: Order Comment: Speci men Type: BLOOD SPECIMEN Ordering Facility: [facility] Address: [address] [address] Performed By: #### 5 7021-8 #### [facility] [id number] [place] [address] Monocytes/100 WBC (Bld) 2.3 % Normal [facility] Comment on above: Order Comment: Speci men Type: BLOOD SPECIMEN Ordering Facility: [facility] Address: [address] Performed By: #### 5 7021-8 #### [facility] IA [id number] [address] [place] [address] [place] Neutrophils (Bld) [#/Vol] 7.62 10*3/uL High 1.45-7.50 [facility] Comment on above: Order Comment: Speci men Type: BLOOD SPECIMEN Ordering Facility: [facility] Address: [address] [address] Performed By: #### 5 7021-8 #### [facility] CLIA [id number] [address] [place] [address] [place] Neutrophils/100 WBC (Bld) 92.8 % Normal [facility] Comment on above: Order Comment: Speci men Type: BLOOD SPECIMEN Ordering Facility: [facility] Address: [address] [address] Performed By: #### 5 7021-8 #### [facility] IA [id number] [address] [place] [address] [place] Nucleated RBC (Bld) [#/Vol] 10*3/uL Normal <0.01 [facility] Comment on above: Order Comment: Speci men Type: BLOOD SPECIMEN Ordering Facility: [facility] Address: [address] [address] Performed By: #### 5 7021-8 #### [facility] IA [id number] [address] [place] [address] [place] Nucleated RBC/100 WBC (Bld) [Ratio] 0.0 /100 WBC Normal [facility] Comment on above: Order Comment: Speci men Type: BLOOD SPECIMEN Ordering Facility: [facility] Address: [address] Performed By: #### 5 7021-8 #### [facility] IA [id number] [address] [place] [address] [place] Platelet mean volume (Bld) [Entitic vol] 10.5 fL Normal 9.0-12.7 [facility] Comment on above: Order Comment: Speci men Type: BLOOD SPECIMEN Ordering Facility: [facility] Address: [address] [address] Performed By: #### 5 7021-8 #### [facility] CLIA [id number] [address] [place] [address] [place] Platelets (Bld) [#/Vol] 264 10*3/uL Normal 150-400 [facility] Comment on above: Order Comment: Speci men Type: BLOOD SPECIMEN Ordering Facility: [facility] Address: [address] [address] Performed By: #### 5 7021-8 #### [facility] CLIA [id number] [address] [place] [address] [place] RBC (Bld) [#/Vol] 4.95 10*6/uL Normal 3.90-5.20 [facility] Comment on above: Order Comment: Speci men Type: BLOOD SPECIMEN Ordering Facility: [facility] Address: [address] Performed By: #### 5 7021-8 #### [facility] CLIA [id number] [address] [place] WBC (Bld) [#/Vol] 8.22 10*3/uL Normal 3.70-11.00 [facility] Comment on above: Order Comment: Speci men Type: BLOOD SPECIMEN Ordering Facility: [facility] Address: [address] Performed By: #### 5 7021-8 #### [facility] CLIA [id number] [id number] [facility] Comprehensive metabolic 2000 panelon 05-25-2022 Albumin [Mass/Vol] 4.3 g/dL Normal 3.9-4.9 [facility] Comment on above: Order Comment: Speci men Type: BLOOD SPECIMEN Ordering Facility: [facility] Address: [address] Performed By: #### 2 4323-8, 3040-3, HCGED, 47753-5 #### [facility] CLIA [id number] [address] [place] [address] [place] ALP [Catalytic activity/Vol] 74 U/L Normal 34-123 [facility] Comment on above: Order Comment: Speci men Type: BLOOD SPECIMEN Ordering Facility: [facility] Address: [address] [place] [address] Performed By: #### 2 4323-8, 3040-3, HCGED, #### [facility] CLIA [id number] [address] [place] [address] [place] ALT [Catalytic activity/Vol] 23 U/L Normal 7-38 [facility] Comment on above: Order Comment: Speci men Type: BLOOD SPECIMEN Ordering Facility: [facility] Address: [address] [place] [address] Performed By: #### 2 4323-8, 3040-3, HCGED, 40030-3 #### [facility] CLIA [id number] [address] [place] [address] [place] Anion gap [Moles/Vol] 12 mmol/L Normal 9-18 [facility] Comment on above: Order Comment: Speci men Type: BLOOD SPECIMEN Ordering Facility: [facility] Address: [address] [place] [address] Performed By: #### 2 4323-8, 3040-3, HCGED, 71163-3 #### [facility] CLIA [id number] [address] [facility] [place] [address] [place] AST [Catalytic activity/Vol] 15 U/L Normal 13-35 [facility] Comment on above: Order Comment: Speci men Type: BLOOD SPECIMEN Ordering Facility: [facility] Address: [address] [place] [address] Performed By: #### 2 4323-8, 3040-3, HCGED, 52699-0 #### [facility] CLIA [id number] [address] [place] [address] [place] Bilirubin [Mass/Vol] 1.0 mg/dL Normal 0.2-1.3 [facility] Comment on above: Order Comment: Speci men Type: BLOOD SPECIMEN Ordering Facility: [facility] Address: [address] [place] [address] Performed By: #### 2 4323-8, 3040-3, HCGED, #### [facility] CLIA [id number] [address] [place] [address] [place] Calcium [Mass/Vol] 8.8 mg/dL Normal 8.5-10.2 [facility] Comment on above: Order Comment: Speci men Type: BLOOD SPECIMEN Ordering Facility: [facility] Address: [address] [place] [address] Performed By: #### 2 4323-8, 3040-3, HCGED, #### [facility] CLIA [id number] [address] [place] [address] [place] Chloride [Moles/Vol] 107 mmol/L High 97-105 [facility] Comment on above: Order Comment: Speci men Type: BLOOD SPECIMEN Ordering Facility: [facility] Address: [address] [place] [address] Performed By: #### 2 4323-8, 3040-3, HCGED, #### [facility] CLIA [id number] [address] [place] [address] [place] CO2 [Moles/Vol] 22 mmol/L Normal 22-30 [facility] Comment on above: Order Comment: Speci men Type: BLOOD SPECIMEN Ordering Facility: [facility] Address: [address] [place] [address] Performed By: #### 2 4323-8, 3040-3, HCGED, #### [facility] CLIA [id number] [address] [place] [address] [place] Creatinine [Mass/Vol] 0.70 mg/dL Normal 0.58-0.96 [facility] Comment on above: Order Comment: Tad vu Type: BLOOD SPECIMEN Ordering Facility: [facility] Address: [address] [id number] Performed By: #### 2 4323-8, 3040-3, HCGED, 21462-0 #### [facility] CLIA [id number] [address] [place] [address] [place] ESTIMATED GLOMERULAR FILTRATION RATE 123 mL/min/1.73m??? Normal >=60 [facility] Comment on above: Order Comment: Tad vu Type: BLOOD SPECIMEN Ordering Facility: [facility] Address: [address] [id number] Result Comment: Hazel mated Glomerular Filtration Rate [...] GFR. Performed By: #### 2 4323-8, 3040-3, HCGED, 25865-3 #### [facility] CLIA [id number] [address] [place] [address] [place] Glucose [Mass/Vol] 97 mg/dL Normal 74-99 [facility] Comment on above: Order Comment: Tad vu Type: BLOOD SPECIMEN Ordering Facility: [facility] Address: [address] [place], [place] [phone] Result Comment: The [place] [employer] (ADA) provides guidance for cutoff [...] Standards of Medical Care in Diabetes 2016, [place] [employer]. Diabetes Care. 2016.39(Suppl 1). Performed By: #### 2 4323-8, 3040-3, HCGED, 39420-8 #### [facility] CLIA [id number] [address] [place] [address] [place] Potassium [Moles/Vol] 3.9 mmol/L Normal 3.7-5.1 [facility] Comment on above: Order Comment: Speci men Type: BLOOD SPECIMEN Ordering Facility: [facility] Address: [address] [address] Performed By: #### 2 4323-8, 3040-3, HCGED, 32539-3 #### [facility] CLIA [id number] [address] [place] [address] [place] Protein [Mass/Vol] 6.9 g/dL Normal 6.3-8.0 [facility] Comment on above: Order Comment: Speci men Type: BLOOD SPECIMEN Ordering Facility: [facility] Address: [address] [address] Performed By: #### 2 4323-8, 3040-3, HCGED, 37071-3 #### [facility] CLIA [id number] [address] [place] [address] [place] Sodium [Moles/Vol] 141 mmol/L Normal 136-144 [facility] Comment on above: Order Comment: Speci men Type: BLOOD SPECIMEN Ordering Facility: [facility] Address: [address] [address] Performed By: #### 2 4323-8, 3040-3, HCGED, 18023-7 #### [facility] CLIA [id number] [address] [place] [address] [place] Urea nitrogen [Mass/Vol] 13 mg/dL Normal 7-21 [facility] Comment on above: Order Comment: Speci men Type: BLOOD SPECIMEN Ordering Facility: [facility] Address: [address] [address] Performed By: #### 2 4323-8, 3040-3, HCGED, 99085-7 #### [facility] CLIA [id number] [address] [facility] [place] [address] [facility] ECG COMPLETEon 05-25-2022 ECG COMPLETE Ventricular Rate : 9 1 BPM Atrial Rate : 92 BPM P-R Interval : 150 ms QRS Duration : 85 ms Q-T Interval : 341 ms QTC Calculation(Bazett) : 420 ms Calculated P Burns : 33 degrees Calculated R Burns : 21 degrees Calculated T Burns : 24 degrees Sinus rhythm Low voltage, precordial leads Otherwise Normal ECG *SEE EPIC NOTE FOR INTERPRETATION Confirmed by KHADAR LUNA MD ([id number]), acquisitions editor BE TORRES ([id number]) on 05/26/2022 1:50:52 PM NAME : JOVON LOPEZ PID : [id number] : 1995 Gender : Female Race : ORD : [id number] Procedure Date : May 24 2022 23:05:41 Edit Date : May 26 2022 13:50:57 Diagnosis: Sinus rhythm Low voltage, precordial leads Otherwise Normal ECG *SEE EPIC NOTE FOR INTERPRETATION Confirmed by KHADAR LUNA MD ([id number]), acquisitions editor BE TORRES ([id number]) on 05/26/2022 1:50:52 PM Test Reason : Chest Pain Location : 302 : ED AVED-16 Overread By : KHADAR LUNA MD Edited By : BE TORRES Referred By : , Acquired by : [id number], [facility] ED NOTEon 05-25-2022 ED NOTE HNO ID: [id number] Author: Diamond Plata RN Service: Nursing Author [...] ED in no acute distress. DIAMOND PLATA [facility] [phone] [facility] ED PROV NOTEon 05-25-2022 ED PROV NOTE HNO ID: [id number] Author: Khadar Luna DO Service: Emergency Medicine [...] which was unremarkable. She followed up with culture room worker yesterday, was told that her symptoms may [...] Clinical Impr (more content not included)... Normal [facility] Lipase SerPl-cCncon 05-25-20 Lipase [Catalytic activity/Vol] 15 U/L Low 16-61 [facility] Comment on above: Order Comment: Speci men Type: BLOOD SPECIMEN Ordering Facility: [facility] Address: [address] [place] [address] Performed By: #### 2 4323-8, 3040-3, HCGED, #### [facility] CLIA [id number] [address] [place] [address] [place] Magnesium SerPl-mCncon 05-25 Magnesium [Mass/Vol] 1.9 mg/dL Normal 1.7-2.3 [facility] Comment on above: Order Comment: Speci men Type: BLOOD SPECIMEN Ordering Facility: [facility] Address: [address] [place] [address] Performed By: #### 2 4323-8, 3040-3, [facility], #### [facility] CLIA [id number] [address] [place] [address] [place] Urinalysis complete panel (U )on 05-25-2022 Bilirubin Ql (U) Negative Normal Negative [facility] Comment on above: Order Comment: Speci men Type: URINE SPECIMEN Ordering Facility: [facility] Address: [address] [place] [address] Performed By: #### 2 4356-8 #### [facility] CLIA [id number] [address] [facility] [place] [address] [place] Clarity (Unsp spec) Clear Normal Clear [facility] Comment on above: Order Comment: Speci men Type: URINE SPECIMEN Ordering Facility: [facility] Address: [address] [place] [address] Performed By: #### 2 4356-8 #### [facility] CLIA [id number] [address] [place] [address] [place] Color (U) Yellow Normal Yellow [facility] Comment on above: Order Comment: Speci men Type: URINE SPECIMEN Ordering Facility: [facility] Address: [address] [address] Performed By: #### 2 4356-8 #### [facility] IA [id number] [address] [place] [address] [place] Epithelial cells LM.HPF (Urine sed) [#/Area] Few Normal [facility] Comment on above: Order Comment: Speci men Type: URINE SPECIMEN Ordering Facility: [facility] Address: [address] [address] Performed By: #### 2 4356-8 #### [facility] IA [id number] [address] [place] [address] [place] Glucose Test strip (U) [Mass/Vol] Negative Normal Negative [facility] Comment on above: Order Comment: Speci men Type: URINE SPECIMEN Ordering Facility: [facility] Address: [address] [address] Performed By: #### 2 4356-8 #### [facility] IA [id number] [address] [place] [address] [place] Hemoglobin Ql (U) Negative Normal Negative [facility] Comment on above: Order Comment: Speci men Type: URINE SPECIMEN Ordering Facility: [facility] Address: [address] [address] Performed By: #### 2 4356-8 #### [facility] IA [id number] [address] [place] [address] [place] Ketones Ql (U) 3+ Abnormal Trace, Negative [facility] Comment on above: Order Comment: Speci men Type: URINE SPECIMEN Ordering Facility: [facility] Address: [address] [address] Performed By: #### 2 4356-8 #### [facility] CLIA [id number] [address] [place] [address] [place] Leukocyte esterase Test strip Ql (U) 1+ Abnormal Negative [facility] Comment on above: Order Comment: Speci men Type: URINE SPECIMEN Ordering Facility: [facility] Address: [address] [address] Performed By: #### 2 4356-8 #### [facility] IA [id number] [address] [place] [address] [place] Nitrite Ql (U) Negative Normal Negative [facility] Comment on above: Order Comment: Speci men Type: URINE SPECIMEN Ordering Facility: [facility] Address: [address] [place] [address] Performed By: #### 2 4356-8 #### [facility] IA [id number] [address] [place] [address] [place] pH (U) 5.5 [pH] Normal 5.0-8.0 [facility] Comment on above: Order Comment: Speci men Type: URINE SPECIMEN Ordering Facility: [facility] Address: [address] [place] [address] Performed By: #### 2 4356-8 #### [facility] IA [id number] [address] [place] [address] [place] Protein (U) [Mass/Vol] Trace Normal Trace , Negative [facility] Comment on above: Order Comment: Speci men Type: URINE SPECIMEN Ordering Facility: [facility] Address: [address] [place] [address] Performed By: #### 2 4356-8 #### [facility] IA [id number] [address] [place] [address] [place] RBC LM.HPF (Urine sed) [#/Area] 0-3 /HPF Normal 0-3 /HPF [facility] Comment on above: Order Comment: Speci men Type: URINE SPECIMEN Ordering Facility: [facility] Address: [address] [place] [address] Performed By: #### 2 4356-8 #### [facility] IA [id number] [place] [address] [place] Specific gravity (U) [Rel density] 1.026 Normal 1.005-1.030 [facility] Comment on above: Order Comment: Speci men Type: URINE SPECIMEN Ordering Facility: [facility] Address: [address] [address] Performed By: #### 2 4356-8 #### [facility] CLIA [id number] [address] [place], [place] [address] [place] [address] [facility] Urobilinogen Ql (U) 0.2 EU/dL Normal 0.2-1.0 EU/dL [facility] Comment on above: Order Comment: Speci men Type: URINE SPECIMEN Ordering Facility: [facility] Address: [address] [address] Performed By: #### 2 4356-8 #### [facility] CLIA [id number] [address] [place] WBC LM.HPF (Urine sed) [#/Area] 6-10 /HPF Abnormal 0-5 /HPF [facility] Comment on above: Order Comment: Speci men Type: URINE SPECIMEN Ordering Facility: [facility] Address: [address] [place] [address] Performed By: #### 2 4356-8 #### [facility] IA [id number] [address] [place] ED NOTEon 05-24-2022 ED NOTE HNO ID: [id number] Author: Gabby Barone RN Service: ? Author Type: Registered Nurse Type: ED Notes Filed: 05/24/2022 9:23 PM Note Text: Patient presents with nausea, vomiting, diarrhea, and centralized abdominal pain for about 5 months. States she has lost about 45 pounds and is unable to eat or drink without pain. GABBY BARONE [facility] [phone] Normal [facility] Office Visiton 05-23-2022 Follow-up visit [id number] Jovon Lopez 1995 F Date Provider Department Center 05/23/2022 Kevan-GONZALEZ POWELL UTC[facility] No family history on file Level of Service:22919 [place] OFFICE/OUTPATIENT ESTABLISHED MOD MDM 30-39 MIN () Reason for Visit and Comments: New Patient [632] Fatigue [46] - Had gallbladder removed in 03/2021, Dr. Powell found and fixed leak 04/2021, pt is having major problems with eating and drinking. Was referred back in 2020 Normal [facility] Automated erythrocytes count in urine sediment (number/area)Ordered By: Reggie Maynard on 05-17-2022 RBC Auto (Urine sed) [#/Area] 5-9 [HPF] 0-4 [facility] Automated leukocytes count i n urine sediment (number/area)Ordered By: Reggie Maynard on 05-17-2022 WBC Auto (Urine sed) [#/Area] 50-100 [HPF] 0-4 [facility] Basophils Auto (Bld) [#/Vol] Ordered By: Reggie Maynard on 05-17-2022 Basophils (Bld) [#/Vol] 0.1 10*3/uL 0.0-0.2 [facility] Basophils/100 WBC Auto (Bld) Ordered By: Reggie Maynard on 05-17-2022 Basophils/100 WBC (Bld) 0.7 % . F [facility] Bilirubin Test strip Ql (U)O rdered By: Reggie Maynard on 05-17-2022 Bilirubin Ql (U) Negative Negative [facility] Body fluid albumin measureme nt (mass/volume)Ordered By: Reggie Maynard on 05-17-2022 Albumin (Body fld) [Mass/Vol] 3.8 g/dL 3.2-5.5 [facility] Color Auto (U)Ordered By: Hadley Maynard on 05-17-2022 Color (U) Yellow Yellow [facility] Creatinine and Glomerular fi ltration rate.predicted panel (S/P/Bld)Ordered By: Reggie Maynard on 05-17-2022 Creatinine [Mass/Vol] 0.64 mg/dL 0.44-1.03 [facility] Direct bilirubin measurement Ordered By: Reggie Maynard on 05-17-2022 Bilirubin.direct [Mass/Vol] 0.1 mg/dL 0.0-0.4 [facility] Eosinophils Auto (Bld) [#/Vo l]Ordered By: Reggie Maynard on 05-17-2022 Eosinophils (Bld) [#/Vol] 0.3 10*3/uL 0.0-0.45 [facility] Eosinophils/100 WBC Auto (Bl d)Ordered By: Reggie Maynard on 05-17-2022 Eosinophils/100 WBC (Bld) 4.2 % . [facility] Erythrocyte distribution wid th Auto (RBC) [Ratio]Ordered By: Reggie Maynard on 05-17-2022 Erythrocyte distribution width (RBC) [Ratio] 13.0 % 11.9-15.3 [facility] Estimated glomerular filtrat ion rate (GFR) non- AmericanOrdered By: Reggie Maynard on 05-17-2022 GFR/1.73 sq M.predicted among non-blacks MDRD (S/P/Bld) [Vol rate/Area] > 60 mL/Min [facility] Globulin Calc (S) [Mass/Vol] Ordered By: Reggie Maynard on 05-17-2022 Globulin (S) [Mass/Vol] 3.3 g/dL [facility] HCG ( test) IA.rapi d Ql (U)Ordered By: Reggie Maynard on 05-17-2022 HCG ( test) Ql (U) Negative [facility] Hematocrit Auto (Bld) [Volum e fraction]Ordered By: Reggie Maynard on 05-17-2022 Hematocrit (Bld) [Volume fraction] 42.9 % 34.0-46.4 [facility] Hemoglobin [Mass/volume] in BloodOrdered By: Reggie Maynard on 05-17-2022 Hemoglobin (Bld) [Mass/Vol] 14.5 g/dL 11.8-15.4 [facility] Ketones Auto test strip (U) [Mass/Vol]Ordered By: Reggie Maynard on 05-17-2022 Ketones (U) [Mass/Vol] Negative Negative Fi [facility] - Chemistry and C hemistry - challengeOrdered By: Reggie Maynard on 05-17-2022 Lipase [Catalytic activity/Vol] 30.0 U/L 22-51 [facility] Laboratory - UrinalysisOrder ed By: Reggie Maynard on 05-17-2022 Hyaline casts LM Ql (Urine sed) 0-8 [LPF] 0-8 [facility] Leukocytes [#/volume] correc gema for nucleated erythrocytes in Blood by Automated counOrdered By: Reggie Maynard on 05-17-2022 WBC corrected for nucl RBC Auto (Bld) [#/Vol] 7.0 10*3/uL 3.8-11.6 [facility] Lymphocytes Auto (Bld) [#/Vo l]Ordered By: Reggie Maynard on 05-17-2022 Lymphocytes (Bld) [#/Vol] 1.4 10*3/uL 1.00-4.8 [facility] Lymphocytes/100 WBC Auto (Bl d)Ordered By: Reggie Maynard on 05-17-2022 Lymphocytes/100 WBC (Bld) 20.4 % . [facility] MCH Auto (RBC) [Entitic mass ]Ordered By: Reggie Maynard on 05-17-2022 MCH (RBC) [Entitic mass] 29.6 pg 24.7-34.3 [facility] MCHC Auto (RBC) [Mass/Vol]Or dered By: Reggie Maynard on 05-17-2022 MCHC (RBC) [Mass/Vol] 33.7 g/dL 32.0-35.0 [facility] MCV Auto (RBC) [Entitic vol] Ordered By: Reggie Maynard on 05-17-2022 MCV (RBC) [Entitic vol] 87.9 fL 80-100 [facility] Monocyte distribution width [Entitic volume] in Blood by AutomatedOrdered By: Reggie Maynard on 05-17-2022 Monocyte distribution width Auto (Bld) [Entitic vol] 17.93 % 0.00-20.00 [facility] Monocytes Auto (Bld) [#/Vol] Ordered By: Reggie Maynard on 05-17-2022 Monocytes (Bld) [#/Vol] 0.3 10*3/uL 0.0-0.8 [facility] Monocytes/100 WBC Auto (Bld) Ordered By: Reggie Maynard on 05-17-2022 Monocytes/100 WBC (Bld) 4.1 % . F [facility] Mucus LM Ql (Urine sed)Order ed By: Reggie Maynard on 05-17-2022 Mucus Ql (Urine sed) 2+ [LPF] [facility] Neutrophils Auto (Bld) [#/Vo l]Ordered By: Reggie Maynard on 05-17-2022 Neutrophils (Bld) [#/Vol] 4.9 10*3/uL 1.8-7.7 [facility] Neutrophils/100 WBC Auto (Bl d)Ordered By: Reggie Maynard on 05-17-2022 Neutrophils/100 WBC (Bld) 70.6 % . [facility] Nitrite Test strip Ql (U)Ord ered By: Reggie Maynard on 05-17-2022 Nitrite Ql (U) Negative Negative [facility] No Panel InformationOrdered By: Reggie Maynard on 05-17-2022 Estimated GFR () > 60 mL/Min [facility] Comment on above: GFR estimated refere nce range: According to KDOQI guidelines, <60 ml/min/1.73m2 is sufficient to diagnose a patient with chronic kidney disease. Pharmacy Creatinine Clearance (Chem 111.16 [facility] Nucleated erythrocytes [Pres ence] in Blood by Automated countOrdered By: Reggie Maynard on 05-17-2022 Nucleated RBC Auto Ql (Bld) 0.2 /100{WBC} 0-0.5 [facility] Platelet mean volume Auto (B ld) [Entitic vol]Ordered By: Reggie Maynard on 05-17-2022 Platelet mean volume (Bld) [Entitic vol] 8.7 fL 6.3-10.7 [facility] Platelets Auto (Bld) [#/Vol] Ordered By: Reggie Maynard on 05-17-2022 Platelets (Bld) [#/Vol] 323 10*3/uL 150-450 [facility] Protein Auto test strip (U) [Mass/Vol]Ordered By: Reggie Maynard on 05-17-2022 Protein (U) [Mass/Vol] Negative Negative Fi [facility] Protein [Mass/volume] in Ser um or PlasmaOrdered By: Reggie Maynard on 05-17-2022 Protein [Mass/Vol] 7.1 g/dL 6.1-7.9 [facility] RBC Auto (Bld) [#/Vol]Ordere d By: Reggie Maynard on 05-17-2022 RBC (Bld) [#/Vol] 4.88 10*6/uL 3.60-5.00 [facility] Serum or plasma alanine rangel otransferase measurement without P-5'-P (enzymatic activiOrdered By: Reggie Maynard on 05-17-2022 ALT No additional P-5'-P [Catalytic activity/Vol] 22 U/L 10-60 [facility] Serum or plasma albumin/glob ulin mass ratioOrdered By: Reggie Maynard on 05-17-2022 Albumin/Globulin [Mass ratio] 1.2 {ratio} [facility] Serum or plasma alkaline ely sphatase measurement (enzymatic activity/volume)Ordered By: Reggie Maynard on 05-17-2022 ALP [Catalytic activity/Vol] 56 U/L 32-92 [facility] Serum or plasma anion gap de terminationOrdered By: Reggie Maynard on 05-17-2022 Anion gap [Moles/Vol] 14.6 mmol/L 6.0-15.0 [facility] Serum or plasma aspartate am inotransferase measurement (enzymatic activity/volume)Ordered By: Reggie Maynard on 05-17-2022 AST [Catalytic activity/Vol] 16 U/L 10-42 [facility] Serum or plasma calcium bryon urement (mass/volume)Ordered By: Reggie Maynard on 05-17-2022 Calcium [Mass/Vol] 8.9 mg/dL 8.2-10.2 [facility] Serum or plasma chloride jmair surement (moles/volume)Ordered By: Reggie Maynard on 05-17-2022 Chloride [Moles/Vol] 106 mmol/L 95-114 [facility] Serum or plasma glucose bryon urement (mass/volume)Ordered By: Reggie Maynard on 05-17-2022 Glucose [Mass/Vol] 94 mg/dL 70-100 [facility] Comment on above: ADA recommended refe rence rangeRandom Glucose Reference Range is dependent on time and content of last meal. Glucose of more than 200 mg/dL in a nonstressed, ambulatory subject supports the diagnosis of Diabetes Mellitus. Serum or plasma non-glucuron idated bilirubin measurement (mass/volume)Ordered By: Reggie Maynard on 05-17-2022 Bilirubin.indirect [Mass/Vol] 0.7 mg/dL [facility] Serum or plasma potassium me asurement (moles/volume)Ordered By: Reggie Maynard on 05-17-2022 Potassium [Moles/Vol] 4.3 mmol/L 3.5-5.1 [facility] Serum or plasma sodium measu rement (moles/volume)Ordered By: Reggie Maynard on 05-17-2022 Sodium [Moles/Vol] 138 mmol/L 136-146 [facility] Serum or plasma total biliru bin measurement (mass/volume)Ordered By: Reggie Maynard on 05-17-2022 Bilirubin [Mass/Vol] 0.8 mg/dL 0.3-1.2 [facility] Serum or plasma total carbon dioxide measurement (moles/volume)Ordered By: Reggie Maynard on 05-17-2022 CO2 [Moles/Vol] 21.7 mmol/L 22.0-30.0 [facility] Serum or plasma urea nitroge n measurement (mass/volume)Ordered By: Reggie Maynard 05-17-2022 Urea nitrogen [Mass/Vol] 15 mg/dL 9-23 [facility] Specific gravity Auto test s trip (U) [Rel density]Ordered By: Reggie Maynard on 05-17-2022 Specific gravity (U) [Rel density] 1.028 1.001-1.030 [facility] Squamous epithelial cells de tection in urine sediment by light microscopyOrdered By: Reggie Maynard on 05-17-2022 Epithelial cells.squamous LM Ql (Urine sed) 3-4 [HPF] 0-2 [facility] Urine bacteria detection by automated methodOrdered By: Reggie Maynard on 05-17-2022 Bacteria Auto Ql (U) None seen None Seen [facility] Urine clarity by refractomet ry automatedOrdered By: Reggie Maynard on 05-17-2022 Clarity Refractometry automated (U) Clear Clear [facility] Urine glucose measurement by automated test strip (mass/volume)Ordered By: Reggie Maynard on 05-17-2022 Glucose Auto test strip (U) [Mass/Vol] Normal mg/dL Normal [facility] Urine hemoglobin detection b y automated test stripOrdered By: Reggie Maynard on 05-17-2022 Hemoglobin Auto test strip Ql (U) Negative Negative [facility] Urine leukocyte esterase det ection by automated test stripOrdered By: Reggie Maynard on 05-17-2022 Leukocyte esterase Auto test strip Ql (U) 3+ Negative [facility] Urine sediment renal epithel ial cell count by microscopy (number/high power field)Ordered By: Reggie Maynard on 05-17-2022 Epithelial cells.renal LM.HPF (Urine sed) [#/Area] None seen [HPF] 0-1 [facility] Urobilinogen Auto test strip (U) [Mass/Vol]Ordered By: Reggie Maynard on 05-17-2022 Urobilinogen (U) [Mass/Vol] Normal mg/dL Normal [facility] WBC Auto (Bld) [#/Vol]Ordere d By: Reggie Maynard on 05-17-2022 WBC (Bld) [#/Vol] 7.0 10*3/uL 3.8-11.6 [facility] pH Auto test strip (U)Ordere d By: Reggie Maynard on 05-17-2022 pH (U) 5.5 [pH] 5.0-9.0 [facility] AMYLASEon 05-01-2022 Amylase [Catalytic activity/Vol] 61 U/L Normal 25-115 [facility] Comment on above: Performed By: #### L IPA, CMP, ROSS #### [facility] [address] [address] [address] Radha Garcia CBC AUTO DIFFon 05-01-2022 BASO # 0.0 103/ul Normal 0.0-0.1 [facility] Comment on above: Performed By: #### C BC #### [facility] [address] [address] [address] Radha Garcia Basophils/100 WBC (Bld) 0.4 % Normal 0.2-2.0 [facility] Comment on above: Performed By: #### C BC #### [facility] [address] [place] [address] Dr. Radha Garcia EO # 0.2 103/ul Normal 0.0-0.7 [facility] Comment on above: Performed By: #### C BC #### [facility] [address] [place] [address] Dr. Radha Garcia Eosinophils/100 WBC (Bld) 3.0 % Normal 0.9-7.0 [facility] Comment on above: Performed By: #### C BC #### [facility] [address] [place] [address] Dr. Radha Garcia Erythrocyte distribution width (RBC) [Ratio] 12.4 % Normal 11.0-15.0 [facility] Comment on above: Performed By: #### C BC #### [facility] [address] [place] [address] Dr. Radha Garcia Hematocrit (Bld) [Volume fraction] 40.5 % Normal 36.0-48.0 [facility] Comment on above: Performed By: #### C BC #### [facility] [address] [place] [address] Dr. Radha Garcia Hemoglobin (Bld) [Mass/Vol] 13.7 g/dL Normal 12.0-16.0 [facility] Comment on above: Performed By: #### C BC #### [facility] [address] [place] [address] Dr. Radha Garcia IG # 0.01 10e3/ul Normal 0.00-0.03 [facility] Comment on above: Performed By: #### C BC #### [facility] [address] [place] [address] Dr. Radha Garcia IG % 0.1 % Normal 0.0-0.5 [facility] Comment on above: Performed By: #### C BC #### [facility] [address] [place] [address] Dr. Radha Garcia LYMPH # 2.1 103/ul Normal 1.2-3.8 [facility] Comment on above: Performed By: #### C BC #### [facility] [address] [place] [address] Dr. Radha Garcia Lymphocytes/100 WBC (Bld) 30.7 % Normal 20.5-60.0 [facility] Comment on above: Performed By: #### C BC #### [facility] [address] [place] [address] Dr. Radha Garcia MANUAL DIFF REQ NO Normal [facility] Comment on above: Performed By: #### C BC #### [facility] [address] [place] [address] Dr. Radha Garcia MCH (RBC) [Entitic mass] 29.9 pg Normal 26.7-34.0 [facility] Comment on above: Performed By: #### C BC #### [facility] [address] [place] [address] Dr. Radha Garcia MCHC (RBC) [Mass/Vol] 33.8 g/dL Normal 29.9-35.2 [facility] Comment on above: Performed By: #### C BC #### [facility] [address] [place] [address] Dr. Radha Garcia MCV (RBC) [Entitic vol] 88.4 fL Normal 81.0-99.0 [facility] Comment on above: Performed By: #### C BC #### [facility] [address] [place] [address] Dr. Radha Garcia MONO # 0.5 103/ul Normal 0.3-0.8 [facility] Comment on above: Performed By: #### C BC #### [facility] [address] [place] [address] Dr. Radha Garcia Monocytes/100 WBC (Bld) 6.6 % Normal 1.7-12.0 [facility] Comment on above: Performed By: #### C BC #### [facility] [address] [place] [address] Dr. Radha Garcia NEUT # 4.1 103/ul Normal 1.4-6.5 [facility] Comment on above: Performed By: #### C BC #### [facility] [address] [place] [address] Dr. Radha Garcia Neutrophils/100 WBC (Bld) 59.2 % Normal 43.0-75.0 [facility] Comment on above: Performed By: #### C BC #### [facility] [address] [place] [address] Dr. Radha Garcia Platelet mean volume (Bld) [Entitic vol] 10.6 fL Normal 9.5-13.5 [facility] Comment on above: Performed By: #### C BC #### [facility] [address] [place] [address] Dr. Radha Garcia PLT 263 103/ul Normal 150-450 [facility] Comment on above: Performed By: #### C BC #### [facility] [address] [place] [address] Dr. Radha Garcia RBC 4.58 106/ul Normal 4.20-5.40 [facility] Comment on above: Performed By: #### C BC #### [facility] [address] [place] [address] Dr. Radha Garcia WBC 6.9 103/ul Normal 4.0-11.0 [facility] Comment on above: Performed By: #### C BC #### [facility] [address] [place] [address] ABD/PELV W CONon [...] by: RAFA KAPLAN Date: 2022-05-01 03:30 Normal [facility] LIPASEon 05-01-2022 Lipase [Catalytic activity/Vol] 63.0 U/L Critically low 73.0-393.0 [facility] Comment on above: Performed By: #### L IPA, CMP, ROSS #### [facility] [address] [address] [address] Radha Garcia PREG HCG QUALon 05-01-2022 , QUAL Negative Normal NEGATIVE [facility] Comment on above: Performed By: #### C BC #### [facility] [address] [address] [address] Radha Garcia PROF 14(COMP METB)on 022 Albumin [Mass/Vol] 3.9 g/dL Normal 3.4-5.0 [facility] Comment on above: Performed By: #### L IPA, CMP, ROSS #### [facility] [address] [address] [address] Radha Garcia Albumin/Globulin [Mass ratio] 1.2 {ratio} Normal [facility] Comment on above: Performed By: #### L IPA, CMP, ROSS #### [facility] [address] [address] [address] Radha Garcia ALP [Catalytic activity/Vol] 73 U/L Normal 46-116 [facility] Comment on above: Performed By: #### L IPA, CMP, ROSS #### [facility] [address] [address] [address] Radha Garcia ALT [Catalytic activity/Vol] 13 U/L Critically low 14-59 [facility] Comment on above: Performed By: #### L IPA, CMP, ROSS #### [facility] [address] [address] [address] Radha Garcia Anion gap [Moles/Vol] 9.0 mmol/L Normal [facility] Comment on above: Performed By: #### L IPA, CMP, ROSS #### [facility] [address] [address] [address] Radha Garcia AST [Catalytic activity/Vol] 12 U/L Critically low 15-37 [facility] Comment on above: Performed By: #### L IPA, CMP, ROSS #### [facility] [address] [address] [address] Radha Garcia Bilirubin [Mass/Vol] 0.6 mg/dL Normal 0.2-1.0 [facility] Comment on above: Performed By: #### L IPA, CMP, ROSS #### [facility] [address] [place] [address] Dr. Radha Garcia Calcium [Mass/Vol] 8.7 mg/dL Normal 8.5-10.1 [facility] Comment on above: Performed By: #### L IPA, CMP, ROSS #### [facility] [address] [place] [address] Dr. Radha Garcia Chloride [Moles/Vol] 106 mmol/L Normal 98-107 [facility] Comment on above: Performed By: #### L IPA, CMP, ROSS #### [facility] [address] [address] [address] Radha Garcia CO2 [Moles/Vol] 26.4 mmol/L Normal 21.0-32.0 [facility] Comment on above: Performed By: #### L IPA, CMP, ROSS #### [facility] [address] [place] [address] Dr. Radha Garcia Creatinine [Mass/Vol] 0.71 mg/dL Normal 0.55-1.02 [facility] Comment on above: Performed By: #### L IPA, CMP, ROSS #### [facility] [address] [place] [address] Dr. Radha Garcia EGFR-AF LITHUANIAN >60 Normal >=60 [facility] Comment on above: Performed By: #### L IPA, CMP, ROSS #### [facility] [address] [place] [address] Dr. Radha Garcia EGFR-NON AF LITHUANIAN >60 Normal >=60 [facility] Comment on above: Performed By: #### L IPA, CMP, ROSS #### [facility] [address] [address] [address] Radha Garcia Globulin (S) [Mass/Vol] 3.3 g/dL Normal [facility] Comment on above: Performed By: #### L IPA, CMP, ROSS #### [facility] [address] [address] [address] Radha Garcia Glucose [Mass/Vol] 89 mg/dL Normal 74-106 [facility] Comment on above: Performed By: #### L IPA, CMP, ROSS #### [facility] [address] [address] [address] Radha Garcia Potassium [Moles/Vol] 3.4 mmol/L Critically low 3.5-5.1 [facility] Comment on above: Performed By: #### L IPA, CMP, ROSS #### [facility] [address] [place] [address] Dr. Radha Garcia Protein [Mass/Vol] 7.2 g/dL Normal 6.4-8.2 [facility] Comment on above: Performed By: #### L IPA, CMP, ROSS #### [facility] [address] [place] [address] Dr. Radha Garcia Sodium [Moles/Vol] 138 mmol/L Normal 136-145 [facility] Comment on above: Performed By: #### L IPA, CMP, ROSS #### [facility] [address] [place] [address] Dr. Radha Garcia Urea nitrogen [Mass/Vol] 12.0 mg/dL Normal 7.0-18.0 [facility] Comment on above: Performed By: #### L IPA, CMP, ROSS #### [facility] [address] [place] [address] Dr. Radha Garcia Urea nitrogen/Creatinine [Mass ratio] 16.9 mg/mg Normal [facility] Comment on above: Performed By: #### L IPA, CMP, ROSS #### [facility] [address] [place] [address] Dr. Radha Garica Q - DRUG TOX MONITORING 6 WI TH CONFIRMATION,URINEon 05-23-2021 Amphetamines Negative Normal <500 [facility] Comment on above: Order Comment: [facility] performed at: [employer], [employer] [facility], [address] , [address] [place] [address], [address] [place] [address], Injection Mold Tooling Technician: Shamar Colunga MD [facility] Date/Time: [facility] Results Received Date/Time: [facility] Reported Date/Time: FASTING: NO Performed By: #### [id number] #### [facility] [address] [place] [address] Barbiturates Negative Normal <300 [facility] Comment on above: Order Comment: [facility] performed at: [employer], [employer] [facility], [address] , [address] [place] [address], [address] [place] [address], In[employer] Tooling Technician: Shamar Colunga MD [facility] Date/Time: [facility] Results Received Date/Time: [facility] Reported Date/Time: FASTING: NO Performed By: #### [id number] #### [facility] [address] [place] [address] Benzodiazepines Negative Normal <100 [facility] Comment on above: Order Comment: [facility] performed at: [employer], [employer] [facility], [address] , [address] [place] [address], [address] [place] [address], In[employer] Tooling Technician: Shamar Colunga MD [facility] Date/Time: [facility] Results Received Date/Time: [facility] Reported Date/Time: FASTING: NO Performed By: #### 9 [id number] #### [facility] [address] [place] [address] Cocaine Metabolite Negative Normal <150 [facility] Comment on above: Order Comment: [facility] performed at: [employer] [facility], [address] , [address] [place] [address], [address] [place] [address], In[employer] Tooling Technician: Shamar Colunga MD [facility] Date/Time: [facility] Results Received Date/Time: [facility] Reported Date/Time: FASTING: NO Performed By: #### [id number] #### [facility] Laboratory Default [address] [place] [address] COMMENT SEE NOTE Normal [facility] Comment on above: Order Comment: [facility] Testing performed at: [employer], [employer] [facility], [address] [facility], [address] [place] [address], [address] [place] [address], Injection Mold Tooling Technician: Shamar Colunga MD [facility] Collection Date/Time: [facility] Results Received Date/Time: [facility] Reported Date/Time: FASTING: NO Result Comment: See Note 2 Note 1 This test was developed and its analytical performance characteristics have been determined by [employer]. It has not been cleared or approved [...] interpreting these drug results, please contact a [employer] Toxicology Specialist: [phone] ( [phone] M-F, 8am-6pm EST. Performed By: #### 9 [id number] #### [facility] Default [address] [place] [address] Marijuana Metabolite 73 ng/mL High <5 [facility] Comment on above: Order Comment: [facility] Testing performed at: [employer], [employer] [facility], [address] , [address] [place] [address], [phone], Injection Mold Tooling Technician: Shamar Colunga MD [facility] Collection Date/Time: [id number] [facility] Results Received Date/Time: [facility] Reported Date/Time: FASTING: NO Result Comment: See Note 1 Performed By: #### 9 1486 #### [facility] Default [address] [place] [address] Marijuana Metabolite 20 Positive Abnormal <20 N [facility] Comment on above: Order Comment: [facility] Testing performed at: [employer], [employer] [facility], [address] [facility], [address] [place] [address], [address] [place] [address], Injection Mold Tooling Technician: Shamar Colunga MD [facility] Collection Date/Time: [facility] Results Received Date/Time: [facility] Reported Date/Time: FASTING: NO Performed By: #### 9 1486 #### [facility] Default [address] [place] [address] Methadone Metabolite Negative Normal <[address] [facility] Specialist Comment on above: Order Comment: [facility] Testing performed at: [employer], [employer] [facility], [address] [facility], [address] [place] [address], [phone], Injection Mold Tooling Technician: Shamar Colunga MD [facility] Collection Date/Time: [facility] Results Received Date/Time: [facility] Reported Date/Time: FASTING: NO Performed By: #### 9 1486 #### [facility] Default [address] [place] [address] Opiates Negative Normal <100 [facility] Specialist Comment on above: Order Comment: [facility] Testing performed at: [facility], [employer] [facility], [address] [facility], [address] [place] [address], [phone], Injection Mold Tooling Technician: Shamar Colunga MD [facility] Collection Date/Time: [facility] Results Received Date/Time: [facility] Reported Date/Time: FASTING: NO Performed By: #### 9 1486 #### [facility] Default [address] [place] [address] Oxycodone Negative Normal <100 [facility] Specialist Comment on above: Order Comment: [facility] Testing performed at: [employer] [facility], [address] [facility], [address] [place] [address], [phone], Injection Mold Tooling Technician: Shamar Colunga MD [facility] Collection Date/Time: [id number] [facility] Results Received Date/Time: [id number] [facility] Reported Date/Time: FASTING: NO Performed By: #### 9 1486 #### [facility] Default [address] [place] [address] Phencyclidine Negative Normal <25 [facility] Comment on above: Order Comment: [facility] Testing performed at: [facility], [facility], [address] [place] [address], [address] [place] [address], [phone], Injection Mold Tooling Technician: Shamar Colunga MD [facility] Collection Date/Time: [id number] [facility] Results Received Date/Time: [facility] Reported Date/Time: FASTING: NO Performed By: #### 9 1486 #### [facility] Default [address] [place] [address] ERCPon 05-01-2021 ERCP [facility] Department of Radiology [address] [place] [id number] Patient Name: JOVON LOPEZ : 1995 Sex: F Age: Race: White Pt. Location: 230 Patient Status: D Ordered Date: 05/01/2021 5:00:00 [...] procedure. Electronically signed: Neris Guevara. Transcribed by: [email or web address], User Resident: Electronically Signed by: NERIS GUEVARA @ 05/03/2021 08:12 AM Normal [facility] Comment on above: Order Comment: Evalu ate Endoscopy Reporton Endoscopy Report MR#: [id number] [facility] Pt. Name: Jovon Lopez Surgery Date: 05/01/2021 Room #: 7A Date of : 1995 PROCEDURE NOTE ATTENDING: Gonzalez Powell M.D. EYELET [employer]UNCH OPERATOR: Te Bacon MD. (Advanced Endoscopy Gastroenterology Fellow). [...] Bacon MD Date Trans: 05/01/2021 06:34 P/sandra [id number] Normal [facility] POC SARS COV2 ANTIGEN NEGATI VEon 05-01-2021 POC SARS COV2 ANTIGEN NEG Negative Normal NEGATIVE [facility] Comment on above: Result Comment: Nega [...] signs and symptoms consistent with COVID-19. The [employer] COVID-19 Ag Card is a lateral flow [...] Accreditation. Performed By: #### 3 1977 #### [facility] [address] [facility]. [address] POC URINE PREGNANCYon 2020 Beta HCG ( test) Ql (U) Negative Normal NEGATIVE [facility] Comment on above: Result Comment: Perf ormed in PACU Performed By: #### 8 [id number] #### [facility] [address] [facility]. [place], [place] [id number] [place] [address] Hemoglobinon 02-14-2021 Hemoglobin (Bld) [Mass/Vol] 11.4 g/dL Low 11.9-15.1 [facility] Comment on above: Performed By: #### H GB #### [address] [place] [address] Admissions Consultant: Ilir Prasad MD HemoglobinOrdered By: Cherelle Mera on 02-14-2021 Hemoglobin.gastrointest inal spec 1 Ql (Stl) 11.4 g/dL Low 11.9 - 15.1 g/dL [facility] [employer] Phone: Interpretation and review of laboratory results Abnormal [facility] Phone: [facility] Phone: OPERATIVE REPORTon 1 OPERATIVE REPORT [address] [address] OPERATIVE REPORT PATIENT NAME: JOVON LOPEZ : 1995 MED REC NO: [id number] ROOM: 0203 ACCOUNT NO: [id number] ADMIT DATE: 02/12/2021 PROVIDER: Fernando Hooks MD DATE OF PROCEDURE: 02/13/2021 PREOPERATIVE DIAGNOSES: at term, failed induction of labor, and intolerance to labor with late decelerations and brief episodes of bradycardia. SURGICAL PROCEDURE: Primary section, low transverse uterine segment. ANESTHESIA: Spinal. BIOMEDICAL ENGINEER: Nash Mera. ESTIMATED BLOOD LOSS: 800 mL. [...] then a running imbricating interlocking fashion. A [id number] suture was placed on the right lateral [...] room in good condition. FERNANDO HOOKS MD [id number] Doc#: [id number] CC: Nash Mera [facility] TYPE AND SCREENOrdered By: Rosie Hooks on 02-13-2021 ABO/Rh Positive [facility] Work Phone: Arm Band Number [id number] [facility] Work Phone: Expiration Date 02/16/2021,2353 [facility] Work Phone: [facility] Work Phone: Type + Screenon 02-13-2021 Type + Screen Sample Expiration 02/16/2021,2355 Arm Band Number [id number] ABO/Rh(D) A POSITIVE Antibody Screen NEGATIVE [facility] Comment on above: Performed By: #### T YS #### [facility] [address] [place] [address] Admissions Consultant: Ilir Prasad MD CBC auto differentialOrdered By: Nash Mera on 02-12-2021 Absolute Eos # 0.11 [facility] Work Phone: Absolute Immature Granulocyte 0.05 [employer] Work Phone: Absolute Lymph # 1.67 [employer] [facility] Work Phone: Absolute Norton # 0.44 [facility] Work Phone: Basophils (Bld) [#/Vol] 10*3/uL M [employer] Work Phone: Basophils/100 WBC (Bld) 0 % 0 - 2 % [employer] Work Phone: Differential Type NOT REPORTED [employer] Phone: Eosinophils/100 WBC (Bld) 1 % 1 - 4 % [employer] Work Phone: Hematocrit (Bld) [Volume fraction] 33.3 % Low 36.3 - 47.1 % [employer] Phone: Hemoglobin.gastrointest inal spec 1 Ql (Stl) 10.7 g/dL Low 11.9 - 15.1 g/dL [employer] Phone: Immature granulocytes/100 WBC (Bld) 1 % High 0 [employer] Work Phone: Interpretation and review of laboratory results Abnormal [employer] Phone: Lymphocytes/100 WBC (Bld) 20 % Low 24 - 43 % [employer] Phone: MCH (RBC) [Entitic mass] 28.5 pg 25.2 - 33.5 pg [employer] Phone: MCHC (RBC) [Mass/Vol] 32.1 g/dL 28.4 - 34.8 g/dL [employer] Phone: MCV (RBC) [Entitic vol] 88.6 fL 82.6 - 102.9 fL [employer] Phone: Monocytes/100 WBC (Bld) 5 % 3 - 12 % [facility] Work Phone: NRBC Automated 0.0 0.0 per 100 WBC [employer] Phone: Platelet distribution width (Bld) [Ratio] 13.9 % 11.8 - 14.4 % [facility] Phone: Platelet Estimate NOT REPORTED [facility] Phone: Platelet mean volume (Bld) [Entitic vol] 11.5 fL 8.1 - 13.5 fL [employer] Phone: Platelets (Bld) [#/Vol] 229 10*3/uL [employer] Phone: RBC (Bld) [#/Vol] 3.76 10*6/uL Low 3.95 - 5.1 1 m/uL [employer] Phone: RBC (Bld) [#/Vol] NOT REPORTED [employer] Phone: Segmented neutrophils/100 WBC (Bld) 73 % High 36 - 65 % [employer] Phone: Segs Absolute 5.99 [employer] Work Phone: WBC (Bld) [#/Vol] 8.3 10*3/uL [employer] Phone: WBC (Bld) [#/Vol] NOT REPORTED [facility] Phone: [employer] Phone: CBC with Diffon 02-12-2021 Abs. Basophil <0.03 Normal 0.00-0.20 [facility] Comment on above: Performed By: #### C DP #### [facility] [address] [place], [facility]83 Admissions Consultant: Ilir Prasad MD Abs.Imm.Granulocyte 0.05 k/uL Normal 0.00-0.30 [facility] Comment on above: Performed By: #### C DP #### [facility] [address] [place], [place] [id number] Admissions Consultant: Ilir Prasad MD Abs.Neutrophil (Seg) 5.99 k/uL Normal 1.50-8.10 [facility] Comment on above: Performed By: #### C DP #### [address] [place], [facility]83 Admissions Consultant: Ilir Prasad MD Basophils/100 WBC (Bld) 0 % Normal 0-2 [facility] Comment on above: Performed By: #### C DP #### [address] [place], [place] [address] Admissions Consultant: Ilir Prasad MD Eosinophils (Bld) [#/Vol] 0.11 10*3/uL Normal 0.00-0.44 [facility] Comment on above: Performed By: #### C DP #### [address] [place], [facility]83 Admissions Consultant: Ilir Prasad MD Eosinophils/100 WBC (Bld) 1 % Normal 1-4 [facility] Comment on above: Performed By: #### C DP #### [facility] [address] [place] [address] Dr. [place], [place] [address] Admissions Consultant: Ilir Prasad MD Erythrocyte distribution width (RBC) [Ratio] 13.9 % Normal 11.8-14.4 [facility] Comment on above: Performed By: #### C DP #### [address] [place], [facility]83 Admissions Consultant: Ilir Prasad MD Hematocrit (Bld) [Volume fraction] 33.3 % Low 36.3-47.1 [facility] Comment on above: Performed By: #### C DP #### [facility] [address] [place], [place] [id number] Admissions Consultant: Ilir Prasad MD Hemoglobin (Bld) [Mass/Vol] 10.7 g/dL Low 11.9-15.1 [facility] Comment on above: Performed By: #### C DP #### [facility] [address] [place], [facility]83 Admissions Consultant: Ilir Prasad MD Immature granulocytes/100 WBC (Bld) 1 % High 0 [facility] Comment on above: Performed By: #### C DP #### [address] [place], [facility]83 Admissions Consultant: Ilir Prasad MD Lymphocytes (Bld) [#/Vol] 1.67 10*3/uL Normal 1.10-3.70 [facility] Comment on above: Performed By: #### C DP #### [facility] [address] [place] [address] Dr. [place], [facility]83 Admissions Consultant: Ilir Prasad MD Lymphocytes/100 WBC (Bld) 20 % Low 24-43 [facility] Comment on above: Performed By: #### C DP #### [facility] [address] [place] [address] Dr. [place], [facility]83 Admissions Consultant: Ilir Prasad MD MCH (RBC) [Entitic mass] 28.5 pg Normal 25.2-33.5 [facility] Comment on above: Performed By: #### C DP #### [facility] [address] [place] [address] Dr. [place] [facility]83 Admissions Consultant: Ilir Prasad MD MCHC (RBC) [Mass/Vol] 32.1 g/dL Normal 28.4-34.8 [facility] Comment on above: Performed By: #### C DP #### [facility] [address] [place] [address] Dr. [place] [id number] Admissions Consultant: Ilir Prasad MD MCV (RBC) [Entitic vol] 88.6 fL Normal 82.6-102.9 [facility] Comment on above: Performed By: #### C DP #### [facility] [address] [place], [place] [id number] Admissions Consultant: Ilir Prasad MD Monocytes (Bld) [#/Vol] 0.44 10*3/uL Normal 0.10-1.20 [facility] Comment on above: Performed By: #### C DP #### [address] [place] [facility]83 Admissions Consultant: Ilir Prasad MD Monocytes/100 WBC (Bld) 5 % Normal 3-12 [facility] Comment on above: Performed By: #### C DP #### [address] [place], [facility]83 Admissions Consultant: Ilir Prasad MD Neutrophil (Seg) 73 % High 36-65 [facility] Comment on above: Performed By: #### C DP #### [address] [place], [place] [id number] Admissions Consultant: Ilir Prasad MD NRBC Automated 0.0 per 100 WBC Normal 0.0 [facility] Comment on above: Performed By: #### C DP #### [facility] [address] [place] [address] Dr. [place], [facility]83 Admissions Consultant: Ilir Prasad MD Platelet mean volume (Bld) [Entitic vol] 11.5 fL Normal 8.1-13.5 [facility] Comment on above: Performed By: #### C DP #### [address] [place], [place] [id number] Admissions Consultant: Ilir Prasad MD Platelets (Bld) [#/Vol] 229 10*3/uL Normal 138-453 [facility] Comment on above: Performed By: #### C DP #### [facility] [address] [place], [place] [id number] Admissions Consultant: Ilir Prasad MD RBC (Bld) [#/Vol] 3.76 10*6/uL Low 3.95-5.11 [facility] Comment on above: Performed By: #### C DP #### [facility] [address] [place], [place] [id number] Admissions Consultant: Ilir Prasad MD WBC (Bld) [#/Vol] 8.3 10*3/uL Normal 3.5-11.3 [facility] Comment on above: Performed By: #### C DP #### [address] [place], [place] [id number] Admissions Consultant: Ilir Prasad MD Auto Diff Performed NOT REPORTED Normal [facility] Comment on above: Performed By: #### C DP #### [facility] [address] [place] [address] Dr[place], [place] [phone] Admissions Consultant: Ilir Prasad MD Platelet Estimate NOT REPORTED Normal [facility] Comment on above: Performed By: #### C DP #### [address] [place], [place] [phone] Admissions Consultant: Ilir Prasad MD RBC morphology finding Nom (Bld) NOT REPORTED Normal [facility] Comment on above: Performed By: #### C DP #### [facility] [address] [place] [address] Dr. [place], [place] [phone] Admissions Consultant: Ilir Prasad MD WBC Morphology NOT REPORTED Normal [facility] Comment on above: Performed By: #### C DP #### [facility] [address] [place] [address] Admissions Consultant: Ilir Prasad MD DRUG SCREEN MULTI URINEOrder ed By: Nash Mera on 02-12-2021 Amphetamine Screen, Ur Negative NEGATIVE [facility] Work Phone: Barbiturate Screen, Ur Negative NEGATIVE [facility] Work Phone: Benzodiazepine Screen, Urine Negative NEGATIVE [facility] Work Phone: Buprenorphine Urine Negative NEGATIVE [facility] Work Phone: Cannabinoid Scrn, Ur Negative NEGATIVE [facility] Work Phone: Cocaine Metabolite, Urine Negative NEGATIVE [facility] Work Phone: MDMA, Urine NOT REPORTED NEGATIVE [facility] Work Phone: Methadone Screen, Urine Negative NEGATIVE [facility] Work Phone: Methamphetamine, Urine Negative NEGATIVE [facility] Work Phone: Opiates, Urine Negative NEGATIVE [facility] Work Phone: Oxycodone Screen, Ur Negative NEGATIVE [facility] Work Phone: Phencyclidine, Urine Negative NEGATIVE [facility] Work Phone: Propoxyphene, Urine Negative NEGATIVE [facility] Work Phone: Test Information NOT REPORTED [facility] Work Phone: Tricyclic Antidepressants, Urine Negative NEGATIVE [facility] Work Phone: Comment on above: Drug screen results are to be used for medical purposes only. All positive results are unconfirmed. Testing for employment or legal uses should be sent to a reference laboratory for confirmation. [facility] Work Phone: Drug Scr, Abuse, Uron 2020 Amphetamine(s),Ur Negative Normal NEG [facility] Comment on above: Performed By: #### D AU #### [facility] [address] [place] [address] Admissions Consultant: Ilir Prasad MD Barbiturate(s),Ur Negative Normal NEG [facility] Comment on above: Performed By: #### D AU #### [facility] [address] [place], [place] [id number] Admissions Consultant: Ilir Prasad MD Benzodiazepine(s) Negative Normal NEG [facility] Comment on above: Performed By: #### D AU #### [facility] [address] [place], [place] [phone] Admissions Consultant: Ilir Prasad MD Buprenorphrine, Ur Negative Normal NEG [facility] Comment on above: Performed By: #### D AU #### [facility] [address] [place], [place] [phone] Admissions Consultant: Ilir Prasad MD Cannabinoid(s),Ur Negative Normal [facility] Comment on above: Performed By: #### D AU #### [facility] [address] [place], [place] [phone] Admissions Consultant: Ilir Prasad MD Cocaine Metabolite Negative Normal [facility] Comment on above: Performed By: #### D AU #### [facility] [address] [place] [address] Admissions Consultant: Ilir Prasad MD Methadone Ql (U) Negative Normal [facility] Comment on above: Performed By: #### D AU #### [facility] [address] [place] [address] Admissions Consultant: Ilir Prasad MD Methamphetamine, Ur Negative Normal [facility] Comment on above: Performed By: #### D AU #### [facility] [address] [place], [place] [phone] Admissions Consultant: Ilir Prasad MD Opiate(s), Ur Negative Normal [facility] Comment on above: Performed By: #### D AU #### [facility] [address] [place], [place] [phone] Admissions Consultant: Ilir Prasad MD Oxycodone, Urine Negative Normal NEG [facility] Comment on above: Performed By: #### D AU #### [facility] [address] [place], [place] [id number] Admissions Consultant: Ilir Prasad MD Phencyclidine, Ur Negative Normal NEG [facility] Comment on above: Performed By: #### D AU #### [facility] [address] [place], [place] [id number] Admissions Consultant: Ilir Prasad MD Propoxyphene,Urine Negative Normal NEG [facility] Comment on above: Performed By: #### D AU #### [facility] [address] [place], [place] [address] Admissions Consultant: Ilir Prasad MD Tricyclic antidepressants Screen Ql (U) Negative Normal NEG [facility] Comment on above: Result Comment: Drug screen results are to be used for medical purposes only. All positive results are unconfirmed. Testing for employment or legal uses should be sent to a reference laboratory for confirmation. Performed By: #### D AU #### [facility] [address] [place] [address] Dr. [place], [place] [id number] Admissions Consultant: Ilir Prasad MD Interpretive Info NOT REPORTED Normal [facility] Comment on above: Performed By: #### D AU #### [facility] [address] [place], [facility]83 Admissions Consultant: Ilir Prasad MD MDMA, Urine NOT REPORTED Normal NEG [facility] Comment on above: Performed By: #### D AU #### [facility] [address] [place] [address] Admissions Consultant: Ilir Prasad MD GBS, External ResultOrdered By: Historical Provider on 01-29-2021 GBS, External Result Negative [facility] Work Phone: [facility] [employer] Work Phone: ABO, External ResultOrdered By: Historical Provider on 08-15-2020 ABO, External Result A [employer] Phone: HIV, External ResultOrdered By: Historical Provider on 08-15-2020 HIV, External Result Non-Reactive [employer] Phone: Hepatitis B, External Result Ordered By: Historical Provider on 08-15-2020 Hep B, External Result Negative [employer] Phone: No Panel InformationOrdered By: Historical Provider on 08-15-2020 [employer] Phone: PROFILE IOrdered By : Historical Provider on 08-15-2020 ABO/Rh Positive [employer] Phone: Rh Factor, External ResultOr dered By: Historical Provider on 08-15-2020 Rh Factor, External Result Positive [employer] Phone: Hepatitis C Antibody, Severity Of Illness Coordinator al ResultOrdered By: Historical Provider on 07-26-2020 Hepatitis C Antibody, External Result Negative [employer] Phone: No Panel InformationOrdered By: Historical Provider on 07-26-2020 [employer] Phone: RPR, External LabOrdered By: Historical Provider on 07-26-2020 RPR, External Result Non-Reactive [employer] Phone: Vag Pathogens DNAon 08-22-19 19 [place] vag DNA Probe Positive Critically abnormal Negative for Gardnerella vaginalis by DNA Probe [facility] Comment on above: Result Comment: This is suggestive, but not diagnostic of bacterial vaginosis, results should be interpreted in conjunction with other data such as pH, amine odor, clue cells and vaginal discharge characteristics. Performed By: #### V AGDNA #### [facility] [address] [employer] [place], [place] [address] Protein mass conc Negative Normal Negative f or Lucía species by DNA Probe [facility] Comment on above: Performed By: #### V AGDNA #### [facility] [employer] [place], [place] [address] Trich vag DNA Probe Negative Normal Negative for Trichomonas vaginalis by DNA Probe [facility] Comment on above: Performed By: #### V AGDNA #### [facility] [address] [place], [place] [address] CNOVon 08-20-2018 CNOV Office Visit (AVONGY ) JOVON LOPEZ ([id number]) 1995 F CHT Date Time Provider Department 08/20/18 2:00 PM BRIGITTE MAIN (GILMER) GISELLA During your visit today, we recorded the following information about you: Blood pressure Weight Height Last Period 110/70 60.3 kg 1.575 m 07/20/18 Kaycee Horvath MA 08/20/2018 2:17 PM Signed [employer] Set Up Technician offered: Patient declines. Brigitte Main APRN.CNP 08/20/2018 [...] external genitalia normal, normal Bartholin's glands, urethra, [place]'s glands, no vulvar lesions, no cervical lesions, good vaginal support, normal appearing perineal body and perianal region, moderate amount yellow discharge noted BIMANUAL: uterus normal size, shape and consistency, no adnexal masses and non-tender RECTOVAGINAL: deferred. NEURO: alert and oriented x3 and alert and oriented x3,exam grossly non-focal EXTREMITIES: normal ASSESSMENT: Normal GENETIC COUNSELOR exam Breast cancer screening Menorrhagia with irreg [...] for insertion pending ins coverage Brigitte Main, ANGULAR JS DEVELOPER.GILEMR Horvath MA 08/20/2018 4:39 PM Signed Negative upt. Referring Provider: SELF [200] Allergies As of Date: 08/20/2018 Noted Allergy Reaction PENICILLINS 08/20/2018 16 - Unknown Comments: Happened when young.. 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 [50] Cmt: Vaginal pain and discharge [...] test, unconfirmed [Z32.00] Order(s):PAP FLUID CERVICAL SCREENING [0600567] Order #: [id number] VAGINAL PATHOGENS DNA PROBES [SQVAGDNA] Order #: [id number] GC/CHLAMYDIA DNA DET [SQGCCAMP] Order #: [id number] TSH BLD [SQTSH] Order #: [id number] PROLACTIN BLD [SQPROL] Order #: [id number] TESTOSTERONE, FREE AND TOTAL [SQFTESTO] Order #: [id number] HGB A1C [ZYNGA6F] Order #: [id number] DHEA-S BLD [SQDHEAS] Order #: [id number] FSH BLD [SQFSH] Order #: [id number] INSERT INTRAUTERINE DEVICE [[id number]] Order #: [id number] HCG QUAL UR B/O [[id number]] Order #: [id number] Prescriptions as of 08/20/2018 Sig: HYDROCODONE 5 MG-ACETAMINOPHE* Take 1 tablet by mouth every * Problem List As Of Date: 08/20/2018 (None) Visit Notes: >> Kaycee Horvath MA ThuAug 20, 2018 2:11 PM Status: Signed [employer] Set Up Technician offered: Patient declines. >> Kaycee Horvath MA ThuAug 20, 2018 4:38 PM Status: Signed Negative upt. Encounter Status:Closed by BRIGITTE MAIN CNP on 08/20/18 Normal [facility] CYTOLOGYon 08-20-2018 CYTOLOGY Specimen originated from [facility] Specimen #: [id number] Submitting Physician: BRIGITTE YOUNG CNP SPECIMEN SUBMITTED [...] from every slide are reviewed by a blind eyeletter. RAYNE Covington(ASCP) (Electronic Signature) ____ CLINICAL DATA ROUTINE EXAM, HPV Testing: Yes, Reflex HPV for ASCUS Date of Last Menstrual Period: 07/20/2018 STAINS A: CERVICAL, SCREENING, FLUID THIN PREP GENETIC COUNSELOR Brigitte Echavarria M.D., [employer] Date of Report: 08/25/2018 Date of Procedure: 08/20/2018 Date of Receipt: 08/23/2018 Submitted by: BRIGITTE YOUNG CNP Location: [facility] Diagnostic interpretation performed at [facility], [address] [place] [address]. CLIA Number: [id number] The Pap Smear is a screening test for cervical cancer. False negative results occur with all screening tests, emphasizing the need for rescreening at recommended intervals, and clinical correlation. Normal [facility] GC/Chlamydia Amplifon 2018 Chlamydia Amplif Positive Critically abnormal [facility] Comment on above: Result Comment: In l ow prevalence populations, the likelihood of a false positive may be higher than a true positive. Retesting by another method may be appropriate for patients who lack risk factors or clinical signs and symptoms consistent with infection. Performed By: #### G CCT #### [place] [id number] GC Amplification Negative Normal [facility] Comment on above: Performed By: #### G CCT #### [facility] [address], [place] [id number] GC/Chlam Amp Source Cervix Normal [facility] Comment on above: Performed By: #### G CCT #### [facility] [address] [place] [id number] PROGRESSon 08-20-2018 Protein mass conc HNO ID: [id number] Author: Brigitte Grier ([facility]) O'Young Service: ? Author Type: Nurse Practitioner [...] external genitalia normal, normal Bartholin's glands, urethra, [place]'s glands, no vulvar lesions, no cervical lesions, good vaginal support, normal appearing perineal body and perianal region, moderate amount yellow discharge noted BIMANUAL: uterus normal size, shape and consistency, no adnexal masses and non-tender RECTOVAGINAL: deferred. NEURO: alert and oriented x3 and alert and oriented x3,exam grossly non-focal EXTREMITIES: normal ASSESSMENT: Normal GENETIC COUNSELOR exam Breast cancer screening Menorrhagia with irreg [...] for insertion pending ins coverage Brigitte Main, SAEID.BABY DOCTOR Normal [facility] Vital Signs Date Time Vital Sign Value Performing Clinician Facility 06-30-2023 10:20-0500 Body height 157.48 cm Luis Leung Other [facility] Other 06-30-2023 10:20-0500 Body mass index (BMI) [Ratio] 22.49 kg/m2 Luis Leung Other [facility] Other 06-30-2023 10:20-0500 Body weight 55.79 kg Luis Leung Other [facility] Other 06-30-2023 10:20-0500 Diastolic blood pressure 65 mm[Hg] Luis Leung Other [facility] Other 06-30-2023 10:20-0500 Systolic blood pressure 115 mm[Hg] Luis Leung Other [facility] [employer] Other 05-17-2022 15:15-0500 Diastolic blood pressure 59 mm[Hg] PHYSICIAN NO [facility] 05-17-2022 15:15-0500 Heart rate 67 /min PHYSICIAN NO [facility] 05-17-2022 15:15-0500 Respiratory rate 15 /min PHYSICIAN NO [facility] 05-17-2022 15:15-0500 SaO2% (BldA) [Mass fraction] 99 % PHYSICIAN NO [facility] 05-17-2022 15:15-0500 Systolic blood pressure 111 mm[Hg] PHYSICIAN NO [facility] 05-17-2022 11:45-0500 Body height 160.02 cm PHYSICIAN NO [facility] 05-17-2022 11:45-0500 Body temperature 98 [degF] PHYSICIAN NO [facility] 05-17-2022 11:45-0500 Body weight 58 kg PHYSICIAN NO [facility] 02-15-2021 07:23-0400 Body temperature 98.1 [degF] Nash Boltono ANGULAR JS DEVELOPER - CNM Work Phone: [employer] Work Phone: 02-15-2021 07:23-0400 Diastolic blood pressure 59 mm[Hg] Nash Cheo ANGULAR JS DEVELOPER - CNM Work Phone: [employer] Work Phone: 02-15-2021 07:23-0400 Heart rate 71 /min Nash Floro ANGULAR JS DEVELOPER - CNM Work Phone: [employer] Work Phone: 02-15-2021 07:23-0400 Respiratory rate 16 /min Nash Cheo ANGULAR JS DEVELOPER - CNM Work Phone: [employer] Work Phone: 02-15-2021 07:23-0400 Systolic blood pressure 98 mm[Hg] Nash Mera APRN - [employer] Work Phone: [facility] Work Phone: 02-13-2021 20:25-0400 SaO2% (BldA) [Mass fraction] 97 % Nash Mera APRN - [employer] Work Phone: [employer] Work Phone: 02-12-2021 15:50-0400 Body height 157.5 cm Nash Mera APRN - [employer] Work Phone: [facility] Work Phone: 02-12-2021 15:50-0400 Body mass index (BMI) [Ratio] 33.29 kg/m2 Nash Mera APRN - [employer] Work Phone: [employer] Work Phone: 02-12-2021 15:50-0400 Body weight 82.56 kg Nsah Mera APRN - [employer] Work Phone: [employer] Work Phone: Encounters Encounter Date Encounter Type Care Provider Facility Start: 12-30-2023 End: 12-30-2023 ambulatory NASH L FLORO Not Available Start: 12-15-2023 End: 12-15-2023 ambulatory NASH L FLORO Not Available Start: 12-08-2023 End: 12-08-2023 ambulatory NASH L [...] Available Start: 07-02-2023 End: 07-02-2023 ambulatory NASH L FLORO Not Available Start: 06-30-2023 End: 06-30-2023 ambulatory Luis Leung Other [facility] Other Start: 06-30-2023 Office outpatient visit 15 minutes Luis Leung [facility] Start: 06-30-2023 Telephone encounter Luis Crews [facility] Start: 06-04-2023 End: 06-04-2023 ambulatory NASH L FLORO Not Available Start: 05-14-2023 End: 05-14-2023 ambulatory NASH L FLORO Not Available Start: 04-21-2023 End: 04-21-2023 Emergency department patient visit PHYSICIAN NO FAMILY Facility:[facility] Start: 10-19-2022 End: 10-19-[address] NONE LISTED REQUEST Facility: Start: 05-26-2022 ambulatory Alize Jefferson RN NURS E VETERINARY EPIDEMIOLOGIST Comment on above: Muscle Aches Start: 05-24-2022 End: 05-25-2022 Emergency department patient visit IKE HASTINGS Facility:[facility] Start: 05-23-2022 End: 05-23-2022 ambulatory GONZALEZ POWELL [facility] Start: 05-17-2022 End: 05-17-2022 Emergency department patient visit PHYSICIAN NO FAMILY [facility] Start: 05-01-2022 End: 05-01-[address] NONE LISTED REQUEST Facility: Start: 05-01-2021 End: 05-02-2021 ambulatory REFERRED SELF Facility:[facility] Start: 02-12-2021 End: 02-15-2021 Evaluation and management of inpatient NASH MERA [facility] Start: 02-12-2021 End: 02-15-2021 Evaluation and management of inpatient Nash Mera ANGULAR JS DEVELOPER - CNM Work Phone: [facility] Comment on above: S/P primary low arredondo sverse (Primary Dx) Start: 08-20-2018 End: 08-23-2018 Patient encounter procedure BRIGITTE BA [facility] Luis Procedures Date Procedure Procedure Detail Performing Clinician Start: 02-14-2021 Blood count hemoglobin Nash Mera ANGULAR JS DEVELOPER - CN Work Phone: Start: 02-13-2021 Antibody screen Nash Mera ANGULAR JS DEVELOPER - CN Work Phone: Start: 02-13-2021 Blood typing serolog ic abo Fernando Hooks MD Work Phone: Start: 02-12-2021 Blood count complete auto&auto difrntl wbc Nash Mera ANGULAR JS DEVELOPER - CN Work Phone: Start: 02-12-[address] class [address] a Nash Mera ANGULAR JS DEVELOPER - CN Work Phone: Start: 01-29-2021 GBS, EXTERNAL RESULT Hi justinaical Provider Start: 08-15-2020 ABO, EXTERNAL RESULT Hi justina[employer] Provider Start: 08-15-2020 HEPATITIS B, EXTERNA L RESULT Historical Provider Start: 08-15-2020 HIV, EXTERNAL RESULT Hi justinaical Provider Start: 08-15-2020 Obstetric panel Histori [facility] Provider Start: 08-15-2020 RH FACTOR, EXTERNAL RESULT Historical Provider Start: 07-26-2020 HEPATITIS C ANTIBODY , EXTERNAL RESULT Historical Provider Start: 07-26-2020 RPR, EXTERNAL RESULT Hi alban Provider H/O: section S/P primar y low transverse Nash Mera ANGULAR JS DEVELOPER - CN Work Phone: H/O: section S/P primar y low transverse Nash Mera ANGULAR JS DEVELOPER - CN Work Phone: Plan of Treatment Date Care Activity Detail Author Start: 02-06-2022 Influenza vaccination INFLUENZA (#1) [facility] Start: 08-20-2021 PAP TESTING PAP TESTING [facility] Start: 06-08-2021 DEPRESSION ASSESSMENT DEPRESSION ASS ESSMENT [facility] Start: 02-06-2021 Influenza [facility] Start: 2018 Screening for malign ant neoplasm of cervix [facility]: Start: 2016 DTaP/Tdap/Td vaccine (1 - Tdap) DTaP/Tdap/Td vaccine (1 - Tdap) [facility] Phone: Start: 2016 Urine microalbumin profile DTAP,TDAP,TD (1 - Tdap) [facility] Start: 2015 HEPATITIS C SCREENING HEPATITIS C [facility] Start: 2015 HIV SCREENING HIV SCREENING [facility] Start: 2013 Screening for Chlamy graham trachomatis Chlamydia screen [facility] [employer] Phone: Start: 2012 HIV screening HIV screen [facility] Work Phone: Start: 2011 PEDS TO ADULT TRANSI TION ANNUAL ASSESSMENT PEDS TO ADULT TRANSITION ANNUAL ASSESSMENT [facility] Start: 2009 COVID-19 Vaccine (1) COVID-19 Vaccin e (1) [employer] Phone: Start: 2009 PEDS TO ADULT TRANSI TION INITIAL DISCUSSION PEDS TO ADULT TRANSITION INITIAL DISCUSSION [facility] Start: 2008 HPV vaccine (1 - 2-d ose series) HPV vaccine (1 - 2-dose series) [facility] Start: 1998 Varicella vaccine (1 of 2 - 2-dose childhood series) Varicella vaccine (1 of 2 - 2-dose childhood series) [facility] [employer] [facility] Phone: Start: 1997 COVID-19 VACCINE (#1) COVID-19 VACCI NE (#1) [facility] Start: 1997 HEPATITIS B (1 of 3 - 3-dose series) HEPATITIS B (1 of 3 - 3-dose series) [facility] Start: 1997 Hepatitis C screening Hepatitis C [facility] Work Phone: Bacteria identified in Urine by Culture [facility] Oxygen therapy [[facility] Data Set] Initiate Oxygen Therapy Protocol Respiratory Care Routine Daily until discontinued starting 02/13/2021 [employer] Phone: Comment on above: Daily until disconti nued starting 02/13/2021 Patient Education Abdominal Pain , Adult ED [facility] Work Phone: Patient referral [facility] Work Phone: Spirometry panel [employer] blanka metry Respiratory Care Routine Every 2hr while awake until discontinued starting 02/13/2021 [employer] Phone: Comment on above: Every 2hr while awak e until discontinued starting 02/13/2021 Immunizations Immunization Date Immunization Notes Care Provider Fa cility 02-13-2021 diphtheria, tetanus toxoids and acellular pertussis vaccine, unspecified formulation Nash [employer] Work Phone: [employer] Phone: 02-13-2021 measles, mumps and rubella virus vaccine [employer] Work Phone: [employer] Phone: Payers Date Payer Category Payer Self-pay [address] [facility] MEDICAID [facility] COMMUNITY PLAN MEDICAID OF [place] [id number] 2021-Present [phone] [address] [place] [address] Medicaid [id number] 1997 Unknown [id number] 2.16.840.1.200148.3.579.2. 173 1997 Unknown [id number] 2.16.840.1.583746.3.579.2. 647 1997 Unknown [id number] 2.16.840.1.880361.3.579.2. 593 1997 Unknown [id number] 2.16.840.1.278867.3.579.2. 593 1997 Unknown [id number] 2.16.840.1.031066.3.579.2. 1258 1997 Unknown [id number] 2.16.840.1.740773.3.579.2. 1258 1997 Unknown [id number] 2.16.840.1.758828.3.579.2. 1258 1997 Unknown [id number] 2.16.840.1.663678.3.579.2. 1258 1997 Unknown [id number] 2.16.840.1.222749.3.579.2. 1258 1997 Unknown [id number] 2.16.840.1.726459.3.579.2. 1258 1997 Unknown [id number] 2.16.840.1.227434.3.579.2. 1258 1997 Unknown [id number] 2.16.840.1.113242.3.579.2. 1258 1997 Unknown [id number] 2.16.840.1.941176.3.579.2. 1258 1997 Unknown [id number] 2.16.840.1.522694.3.579.2. 1258 1997 Unknown [id number] 2.16.840.1.658037.3.579.2. 1258 1997 Unknown [id number] 2.16.840.1.763281.3.579.2. 1258 1997 Unknown [id number] 2.16.840.1.690681.3.579.2. 1258 1997 Unknown [id number] 2.16.840.1.900532.3.579.2. 1258 1997 Unknown [id number] 2.16.840.1.300654.3.579.2. 9 1959 Private Health Insurance [id number] 1.2.840.390390.1.13.239.2. 7.3.681583.315 1959 Unknown [id number] Unknown [id number] 2.16.840.1.698725.3.579.2. 531 Social History Date Type Detail Facility Start: 08-20-2018 End: 02-13-2021 Tobacco smoking status NHIS Never smoker [facility] Start: 08-20-2018 End: 02-13-2021 Tobacco use and exposure Never used [employer] Start: 02-13-2021 Alcohol intake Ex-drinker (finding) [employer] Phone: Start: 1997 Sex Assigned At Not on file M [employer] Phone: Exposure to SARS-CoV-2 (event) Not sure [facility] Start: 05-17-2022 Tobacco smoking status MAIS Smoker (finding) [facility] Start: 1997 Sex Assigned At Female F [facility] Start: 05-24-2022 Alcohol intake Current drinke r of alcohol (finding) [facility] Start: 08-20-2018 Tobacco Comment Smokes radhames--smokeless cigs. [facility] Start: 08-20-2018 Alcohol Comment a couple times per month [facility] Sex Assigned At Sex Assigned At Bir th [facility] Other Clinical Notes 02-15-2021 to 06-30-2023 Note Date & Type Note Facility 06-30-2023 Evaluation note Encounter Date Diagnosis Assessment Notes Jun, Diarrhea (ICD-10 - R19.7) Jun, Nausea (ICD-10 - R11.0) Jun, Weight loss (ICD-10 - R63.4) [facility] [employer] Other 12-30-2022 NotePlease notify patient that all of her labs are normal. We will proceed with EGD for further evaluation as planned. She needs to follow up with her PCP or whoever ordered the UA. This was not ordered by us and is abnormal. Please advise patient to follow up with ordering provider.[facility]12-19-2022 Miscellaneous Notes* Telephone Encounter - Alize Jefferson RN - 05/26/2022 10:53 PM EST Reason for Call: pt does not have a current PCP and is having worsening symptoms since seen in ED on 05/24/22 Outcome: Advised to return to ED now, agreeable. [facility] Note Attestation signed by Gonzalez Powell MD at 05/23/2022 7:30 PM I personally saw and examined the patient on the same date of service as resident/fellow . I discussed the findings and therapeutic plan with the resident/fellow . I agree with the documentation, except for any edits/updates below. [facility] Gastroenterology History & Physical CHIEF COMPLAINT Chief Complaint Patient presents with New Patient Fatigue Had gallbladder removed in 03/2021, Dr. Powell found and fixed leak 04/2021, pt is having major problems with eating and drinking. Was referred back in 2020 HISTORY OF PRESENT ILLNESS: Jovon Lopez is a 27 y.o. female with history laparoscopic cholecystectomy on 03/25/2021 at [facility] (in setting of cholecystitis) complicated by biliary leak status post biliary stent on 03/28/2021 and transferred back to [place]. While there, she had worsening abdominal pain [...] cholangiogram. Biliary sphincterotomy was performed. A 10 Greenlandic X 9 cm plastic biliary stent was [...] normal bowel sounds, soft, (more content not included)...[facility]11-01-2021 History general Narrative - Reported* Type Description Date Surgical History C section Surgical History cholecystectomy 04/2021 [facility] Other 09-10-2021 History of Present illness Narrative* [...] I did review with her that the service consultant can review pump usage with her [...] 02/13/21 194 112/70 78 16 95 % 02/13/211934 (!) 103/59 88 16 96 % 02/13/21 [...] - CNM - 02/13/2021 7:35 PM EDT Flight Security Specialist Note: retirement assistant/benefits assistant primary section with Dr Hooks Closed SQ layer and also closed skin incision. All edges approximated, no bleeding or drainage noted. solid waste technician places sterile dressing over incision. Patient [...] decels. Pitocin remains off. 1717 enroute to hospital I called Dr Hooks. [...] 02/13/2021 5:15 PM EDT Surgery notified that product tester and recovery nurse needed for impending . documented [facility] this [facility] Phone: 1(720) 714-549409-10-2021 Hospital Discharge instructions* Instructions* Lila Mcintosh RN - 02/15/2021 Follow-up with your OB doctor as specified. [facility] OB Department phone: Dr. Neva YOUM Dr. Brittani Espinoza CN [address] [facility] [address] [facility] [address] [place] Lani Mera, MSN, ANGULAR JS DEVELOPER, CNM [address] [address] DIET Eat a well balanced diet focusing on foods high in fiber and protein. Drink plenty of fluids especially water. To avoid constipation you may take a mild stool softener as recommended by your doctor or double needle operator lockstitch. ACTIVITY Gradually increase your activity. Resume exercise regimen only after advice by your doctor or double needle operator lockstitch. Avoid lifting anything heavier than a gallon of milk for SIX weeks. Avoid driving until your doctor or double needle operator lockstitch has given their approval. Rise slowly from [...] have thoughts of harming yourself or your infant. If infant will not stop crying, contact another adult for help or place in their crib on their back and take a break. NEVER shake your infant. BLEEDING Vaginal bleeding will decrease in amount [...] medications as recommended by your doctor or double needle operator lockstitch for pain If you develop a warm, [...] vitamins as directed by your doctor or double needle operator lockstitch. Refer to the booklet in the folder/binder for more information. If you feel you need more assistance or have questions, please call Loreta Reyes IBCLC, service consultant, at or the OB department to [...] they become loose or soiled. If used, [place] should be removed by your care provider. [...] area in your calf. documented in this [facility] Work Phone: 1(732) 283-961209-10-2021 Hospital course Narrative* Kyra Smith APRN - [...] for: HEPBSAG HIV: No results found for: SHE40NW Results for orders placed or performed during [...] # 1.67 1.10 - 3.70 k/uL Absolute [place] # 0.44 0.10 - 1.20 k/uL Absolute [...] Range Expiration Date 02/16/2021,2359 Arm Band Number [id number] ABO/Rh A POSITIVE Antibody Screen NEGATIVE complications: none Discharge Medication: Jovon Lopez [place] Medication Instructions [place]:[id number] Printed on:02/15/21 1002 Medication Information docusate sodium [...] and post depression check documented in this encounterAdena [facility] Center[facility] Phone: [email or web address] note* Diagnosis S/P primary low transverse - Primary delivery, without mention of indication, unspecified as to episode of care Encounter for induction of labor Term intolerance to labor, delivered, current hospitalization Abnormality in heart rate/rhythm, delivered, with or without mention of antepartum condition documented [facility] this encounter [facility] Phone: [email or web address] noteNo assessment information available [facility] Work Phone: Evaluation noteNo InformationNort [employer] Other Hospital Discharge instructions Additional Instructions Follow-up with GI doctor provided Return to the ED if develop worsening symptoms or concerns take the new medications as prescribed, use pepto bismol, tums as needed avoid any spicy foods, fatty foods and avoid alcoholTri[facility] Work Phone: Summary Purpose Family [...] section and content) DATE CREATED AUTHOR 08/25/2018 [facility] DATE CREATED AUTHOR AUTHOR'S ORGANIZ ATION 02/16/2021 [facility] DATE CREATED AUTHOR AUTHOR'S ORGANIZ ATION 05/21/2021 [facility] DATE CREATED AUTHOR AUTHOR'S ORGANIZ ATION 05/27/2021 [facility] DATE CREATED AUTHOR AUTHOR'S ORGANIZ ATION 05/30/2022 [facility] DATE CREATED AUTHOR AUTHOR'S ORGANIZ ATION 07/17/2022 [facility] DATE CREATED AUTHOR AUTHOR'S ORGANIZ ATION 10/22/2022 [facility] DATE CREATED AUTHOR AUTHOR'S ORGANIZ ATION 07/17/2023 [facility] DATE CREATED AUTHOR AUTHOR'S ORGANIZ ATION 01/03/[address] [facility] dical Specialists EPIC Reason for Visit (unrecogniz ed section and content) Reason Comments Scheduled Induction Cytotec Induction Status Reason Specialty Diagnoses / Procedures Referre d By Contact Referred To Contact Diagnoses Encounter for induction of labor Term Nash Mera APRN - CNM [address] [place] [address] [facility] Reason Comments Muscle Aches Ordered Prescriptions [...] 173 (Given - Provider: Claudine Benavides RN) clindamycin (CLEOCIN) 900 mg in dextrose 5 % 50 mL IVPB (COMPLETED) 900 mg, IntraVENous, VETERINARY EPIDEMIOLOGIST TO O.R., 1 dose, On Thu02/13/21 at [...] Do not crush or break., 2099 (Due) 926 (Given - Provider: Claudine Benavides RN)195 (Given - Provider: Deja Villalobos, HALLE) 0740 (Given - Provider: Lila Mcintosh, HALLE)2099 (Due) enoxaparin (LOVENOX) injection 40 mg 40 mg, SubCUTAneous, DAILY, First dose on Megan 02/14/21 at 0745, 0724 (Given - Provider: Claudine Benavides RN) 0739 (Given - Provider: Lila Mcintosh, HALLE) [...] Villalobos, HALLE)0400 (Due)1257 (Given - Provider: Lila Mcintosh RN)2000 (Due) ketorolac (TORADOL) injection 30 mg (COMPLETED) 30 mg, IntraVENous, EVERY 6 HOURS, First dose on Megan 02/14/21 at 0100, For 4 doses, Do not administer for more than 5 days., 0037 (Given - Provider: Marlene Ceballos RN)0637 (Given - Provider: Bobbi Devi RN)1236 (Given [...] resumes., 195 (Not Given - Provider: Marlene Ceballos, RN - Reason: Other) 0927 (Given - Provider: Claudine Benavides, HALLE) 0740 (Given - Provider: Lila Mcintosh, HALLE) sodium chloride flush 0.9 % injection 10 mL 10 mL, IntraVENous, EVERY 12 HOURS SCHEDULED (2 times per day), First dose on Thu02/13/21 at 2100, 2100 (Due) 0900 (Due)2100 (Due) 09 (Due)2100 (Due) Auqadoa-Cfmkfo-Rghyf Pertussis (BOOSTRIX) injection 0.5 mL 0.5 mL, [...] Alvarado RN)1550 (New Bag - Provider: Claudine Benavides RN)1606 (Rate/Dose Change - Provider: Adela Alvarado RN)1644 (Rate/Dose Change - Provider: Claudine Benavides, HALLE)1730 (Rate/Dose Change - Provider: Claudine Benavides, HALLE) lactated ringers infusion (CANCELED) IntraVENous, at 125 mL/hr, CONTINUOUS, Starting on Thu02/13/21 at 1745, Labor and Delivery (Signed and Held) 1805 (New Bag - Provider: Luther Silvestre APRN - POTTERY MACHINE OPERATOR)1912 (Anesthesia Volume Adjustment - Provider: Luther Silvestre APRN - POTTERY MACHINE OPERATOR) lactated ringers infusion IntraVENous, at 125 mL/hr, [...] every 2-3 minutes with cervical changes or [place] units (MVU) greater than 200 in a [...] Post-op 1204 (Given - Provider: Claudine Benavides, RN) benzocaine-menthol (DERMOPLAST) 20-0.5 % spray Topical, PRN, Pain, Starting on Thu02/14/21 at 1200, Apply to perineum 1204 (Given [...] Skin, nipple discomfort, Starting on Thu02/13/21 at 194, Post-op 0733 (Given - Provider: Claudine Benavides, [...] PRN, or itching, Starting on Thu02/13/21 at 1949, Post-op naloxone (NARCAN) injection 0.4 mg 0.4 mg, IntraVENous, PRN, Opioid Reversal, Starting on Thu02/13/21 at 1949, Post-op ondansetron (ZOFRAN) injection 4 mg 4 mg, IntraVENous, EVERY 6 HOURS PRN, Nausea, nausea, Starting on Thu02/13/21 at 1949, oxyCODONE-acetaminophen (PERCOCET) 5-325 MG per tablet 1 tablet(Linked Group 1) 1 tablet, Oral, EVERY 4 HOURS PRN, Pain Moderate (4-6), Starting on Thu02/13/21 at 194, Maximum dose of acetaminophen is 4000 mg from all sources in 24 hours., 173 (See Alternative - Provider: Pramod Hernandez LPN) 045 (See Alternative - Provider: Inan Joseph RN) oxyCODONE-acetaminophen (PERCOCET) 5-325 MG per tablet 2 tablet(Linked Group 1) 2 tablet, Oral, EVERY 4 HOURS PRN, Pain Severe (7-10), Starting on Thu02/13/21 at 194, Maximum dose of acetaminophen is 4000 mg from all sources in 24 hours., 173 (Given - Provider: Pramod Hernandez LPN - Comment: INCISION) 045 (Given - Provider: Inna Joseph RN) oxytocin (PITOCIN) 30 units in 500 [...] HALLE Rosario) 212 (Stopped - Provider: Inna L Opal, RN - Comment: infusion complete.) sennosides-docusate sodium [...] Pain Severe (7-10), Starting on Thu02/13/21 at 194
Maximum dose [...] or prosecute any alcohol or drug abuse patient.[facility] FOR RECORDS PERTAINING TO PATIENTS WHO [...] BE BASED ON THE PRIMARY CLINICAL RECORDS. [employer] [facility]. provides no warranty or guarantee of the accuracy or completeness of information in this document.
== END 2024-01-11 15:25 | disposition home or self-care (01) ==
PROVIDERS: Visit Provider Obstetrics & Gynecology
DX: Z39.1 Encounter for care and examination of lactating mother (principal)
CPT/HCPCS: G0463

== ENCOUNTER 2024-02-03 23:29 | Emergency (ER) | payer OTHER, SELFPAY ==
[2024-02-03 23:29] VITALS: BP 114/81; PULSE 97; TEMP 36.5; O2SAT 98; BMI 25.1
--- OUTSIDE RECORDS SUMMARY | 2024-02-03 23:47 | XMS_ITS | CCD ---
Author Organization [facility] Care Team Providers Care Ventilated Rib Fitter Name Role Phone BRIGITTE BA Marvel Attending Unavailable Unavailable Primary Care Provider UnavailNASH Mortensen Attending Unavailable FLORO NASH Admitting Unavailable SELF, REFERRED Referring Unavailable SELF, REFERRED Primary Care Unavailable GONZALEZ POWELL Attending Unavailable GONZALEZ POWELL Admitting Unavailable NO FAMILY, PHYSICIAN Primary Care Provider DO Reggie eDlacruz Emergency Provider Unavailable Primary Care Provider UnavailIKE [...] reactions to drug 9 Other (See Comments) [facility] (4 sources) Morphine; Translations: [MORPHINE] Drug Allergy 1 Hives [facility] Repository (2 sources) Penicillin Drug Allergy 0 [facility] Repository (3 sources) Morphine Drug Allergy 2 Hives [facility] (1 source) Penicillins Propensity to adverse reactions to drug 9 Unknown [facility] (1 source) Morphine Drug Allergy 1 [facility] Repository (2 sources) Amoxicillin Drug Allergy [facility] Other (1 source) Amoxicillin Drug Allergy 4 [facility] Repository (1 source) Morphine Drug Allergy 4 [facility] Repository (1 source) Penicillins Drug allergy (disorder) 3 [facility] Repository Medications Current Medications Medication Drug [...] infection (1 source) Acute gastroenteropathy due to [place] agent; Translations: [ACUTE GASTROENTROPATHY NORWALK AGNT] Onset: [...] , with heart rate of 126 bpm. [place]-rump length measures 0.95 cm, yielding an estimated [...] 10,000-100,000 6-8 15,000-200,000 8-12 10,000-100,000 PERFORMED BY: [place] [address] PATHOLOGIST MASTER [employer]ICE DETECTIVE ARJUN HASTINGS M.D. Performed By: #### H CGQNT #### [place] [address] [place] HCG,Urineon 04-21-2023 Beta HCG ( test) Ql (U) Negative Normal [facility] Comment on above: Order Comment: Name Collection Type:: Clean-Voided Midstream Result Comment: PERF ORMED BY: [place] [address] PATHOLOGIST MASTER POLICE DETECTIVE ARJUN HASTINGS M.D. Performed By: #### U A, UHCG #### [address] Urinalysison 04-21-2023 Appearance (U) Clear Normal Clear [facility] Comment on above: Order Comment: Name Collection Type:: Clean-Voided Midstream Performed By: #### U A, UHCG #### [place] [address] [place] Bilirubin,Urine Negative Normal Negative [facility] Comment on above: Order Comment: Name Collection Type:: Clean-Voided Midstream Performed By: #### U A, UHCG #### [place] [address] [place] Color (U) Yellow Normal Yellow [facility] Comment on above: Order Comment: Name Collection Type:: Clean-Voided Midstream Performed By: #### U A, UHCG #### [place] [address] [place] Glucose Ql (U) Normal Normal Normal [facility] Comment on above: Order Comment: Name Collection Type:: Clean-Voided Midstream Performed By: #### U A, UHCG #### [facility] [address] [place] [address] Ketones Ql (U) Negative Normal Negative [facility] Comment on above: Order Comment: Name Collection Type:: Clean-Voided Midstream Performed By: #### U A, UHCG #### [address] Leukocyte esterase Test strip Ql (U) Negative Normal Negative [facility] Comment on above: Order Comment: Name Collection Type:: Clean-Voided Midstream Performed By: #### U A, UHCG #### [address] Nitrite,Urine Negative Normal Negative [facility] Comment on above: Order Comment: Name Collection Type:: Clean-Voided Midstream Performed By: #### U A, UHCG #### [address] Occult Blood,Urine Negative Normal Negative [facility] Comment on above: Order Comment: Name Collection Type:: Clean-Voided Midstream Performed By: #### U A, UHCG #### [address] pH (U) 7.5 [pH] Normal 5.0-9.0 [facility] Comment on above: Order Comment: Name Collection Type:: Clean-Voided Midstream Performed By: #### U A, UHCG #### [facility] [address] [place] [address] [place] Protein,Urine Negative Normal Negative [facility] Comment on above: Order Comment: Name Collection Type:: Clean-Voided Midstream Performed By: #### U A, UHCG #### [place] [address] [place] Specificy [place],Urine 1.011 Normal 1.001-1.030 [facility] Comment on above: Order Comment: Name Collection Type:: Clean-Voided Midstream Performed By: #### U A, UHCG #### [facility] [address] Urobilinogen,Urine Normal Normal Normal [facility] Comment on above: Order Comment: Name Collection Type:: Clean-Voided Midstream Performed By: #### U A, UHCG #### [facility] [address] AMYLASEon 10-19-2022 Amylase [Catalytic activity/Vol] 42 U/L Normal 25-115 [facility] Comment on above: Performed By: #### L IPA, ROSS, CMP #### [facility] [address] [place] [address] Dr. Radha Garcia CBC AUTO DIFFon 10-19-2022 BASO # 0.0 103/ul Normal 0.0-0.1 [facility] Comment on above: Performed By: #### C BC #### [facility] [address] [place] [address] Dr. Radha Garcia Basophils/100 WBC (Bld) 0.4 % Normal 0.2-2.0 [facility] Comment on above: Performed By: #### C BC #### [facility] [address] [place] [address] Dr. Radha Garcia EO # 0.1 103/ul Normal 0.0-0.7 [facility] Comment on above: Performed By: #### C BC #### [facility] [address] [place] [address] Dr. Radha Garcia Eosinophils/100 WBC (Bld) 2.9 % Normal 0.9-7.0 [facility] Comment on above: Performed By: #### C BC #### [facility] [address] [place] [address] Dr. Radha Garcia Erythrocyte distribution width (RBC) [Ratio] 12.6 % Normal 11.0-15.0 [facility] Comment on above: Performed By: #### C BC #### [facility] [address] [place] [address] Dr. Radha Garcia Hematocrit (Bld) [Volume fraction] 41.9 % Normal 36.0-48.0 [facility] Comment on above: Performed By: #### C BC #### [facility] [address] [place] [address] Dr. Radha Garcia Hemoglobin (Bld) [Mass/Vol] 13.8 g/dL Normal 12.0-16.0 [facility] Comment on above: Performed By: #### C BC #### [facility] [address] [place] [address] Dr. Radha Garcia IG # 0.01 10e3/ul Normal 0.00-0.03 [facility] Comment on above: Performed By: #### C BC #### [facility] [address] [place] [address] Dr. Radha Garcia IG % 0.2 % Normal 0.0-0.5 [facility] Comment on above: Performed By: #### C BC #### [facility] [address] [place] [address] Dr. Radha Garcia LYMPH # 1.2 103/ul Normal 1.2-3.8 [facility] Comment on above: Performed By: #### C BC #### [facility] [address] [place] [address] Dr. Radha Garcia Lymphocytes/100 WBC (Bld) 25.6 % Normal 20.5-60.0 [facility] Comment on above: Performed By: #### C BC #### [facility] [address] [place] [address] Dr. Radha Garcia MANUAL DIFF REQ NO Normal [facility] Comment on above: Performed By: #### C BC #### [facility] [address] [place] [address] Dr. Radha Garcia MCH (RBC) [Entitic mass] 29.9 pg Normal 26.7-34.0 [facility] Comment on above: Performed By: #### C BC #### [facility] [address] [place] [address] Dr. Radha Garcia MCHC (RBC) [Mass/Vol] 32.9 g/dL Normal 29.9-35.2 [facility] Comment on above: Performed By: #### C BC #### [facility] [address] [address] [address] Radha Garcia MCV (RBC) [Entitic vol] 90.9 fL Normal 81.0-99.0 [facility] Comment on above: Performed By: #### C BC #### [facility] [address] [address] [address] Radha Garcia MONO # 0.3 103/ul Normal 0.3-0.8 [facility] Comment on above: Performed By: #### C BC #### [facility] [address] [place] [address] Dr. Radha Garcia Monocytes/100 WBC (Bld) 6.5 % Normal 1.7-12.0 [facility] Comment on above: Performed By: #### C BC #### [facility] [address] [place] [address] Dr. Radha Garcia NEUT # 2.9 103/ul Normal 1.4-6.5 [facility] Comment on above: Performed By: #### C BC #### [facility] [address] [place] [address] Dr. Radha Garcia Neutrophils/100 WBC (Bld) 64.4 % Normal 43.0-75.0 [facility] Comment on above: Performed By: #### C BC #### [facility] [address] [place] [address] Dr. Radha Garcia Platelet mean volume (Bld) [Entitic vol] 10.6 fL Normal 9.5-13.5 [facility] Comment on above: Performed By: #### C BC #### [facility] [address] [place] [address] Dr. Radha Garcia PLT 246 103/ul Normal 150-450 [facility] Comment on above: Performed By: #### C BC #### [facility] [address] [place] [address] Dr. Radha Garcia RBC 4.61 106/ul Normal 4.20-5.40 [facility] Comment on above: Performed By: #### C BC #### [facility] [address] [place] [address] Dr. Radha Garcia WBC 4.5 103/ul Normal 4.0-11.0 [facility] Comment on above: Performed By: #### C BC #### [facility] [address] [place] [address] Dr. Radha Garcia GI PANEL (PCR)on 10-19-2022 Adenovirus F 40/41 Not detected Normal NOT DETECTED [facility] Comment on above: Performed By: #### G IPANEL #### [facility] [address] [place] [address] Dr. Radha Garcia Astrovirus Not detected Normal NOT DETECTED [facility] Comment on above: Performed By: #### G IPANEL #### [facility] [address] [place] [address] Dr. Radha Pike. Diff toxin A/B Not detected Normal NOT DETECTED [facility] Comment on above: Performed By: #### G IPANEL #### [facility] [address] [place] [address] Dr. Radha Garcia Campylobacter Not detected Normal NOT DETECTED [facility] Comment on above: Performed By: #### G IPANEL #### [facility] [address] [place] [address] Dr. Radha Garcia Cryptosporidium Not detected Normal NOT DETECTED [facility] Comment on above: Performed By: #### G IPANEL #### [facility] [address] [place] [address] Dr. Radha Garcia Cyclos. Cayetanensis Not detected Normal NOT DETECTED [facility] Comment on above: Performed By: #### G IPANEL #### [facility] [address] [place] [address] Dr. Radha Garcia E. Coli O157 Not Applicable Normal Not Applicable [facility] Comment on above: Performed By: #### G IPANEL #### [facility] [address] [place] [address] Dr. Radha Garcia E. histolytica Not detected Normal NOT DETECTED [facility] Comment on above: Performed By: #### G IPANEL #### [facility] [address] [place] [address] Dr. Radha Garcia EAEC Not detected Normal NOT DETECTED [facility] Comment on above: Performed By: #### G IPANEL #### [facility] [address] [place] [address] Dr. Radha Garcia EIEC Not detected Normal NOT DETECTED [facility] Comment on above: Performed By: #### G IPANEL #### [facility] [address] [place] [address] Dr. Radha Garcia EPEC Not detected Normal NOT DETECTED [facility] Comment on above: Performed By: #### G IPANEL #### [facility] [address] [place] [address] Dr. Radha Garcia ETEC Not detected Normal NOT DETECTED [facility] Comment on above: Performed By: #### G IPANEL #### [facility] [address] [place] [address] Dr. Radha Valdez Lamblia Not detected Normal NOT DETECTED [facility] Comment on above: Performed By: #### G IPANEL #### [facility] [address] [place] [address] Dr. Radha SANTANA CONTROLS PASSED Normal [facility] Comment on above: Performed By: #### G IPANEL #### [facility] [address] [place] [address] Dr. Radha MALIK [facility] HEADER GI PANEL BACTERIA Normal T [facility] Comment on above: Performed By: #### G IPANEL #### [facility] [address] [place] [address] Dr. Radha LOUIS ECOLI GI PANEL DIARRHEAGENIC E.COLI / SHIGELLA Normal [facility] Comment on above: Performed By: #### G IPANEL #### [facility] [address] [place] [address] Dr. Radha LOUIS INFO SEE BELOW Normal [facility] Comment on above: Result Comment: EAEC - Enteroaggregative E. Coli EPEC- Enteropathogenic E. Coli ETEC- Enterotoxigenic E. Coli lt/st STEC- Shigella-like toxin-producing E. Coli stx1/stx2 EIEC- Shigella/Enteroinvasive E. Coli Performed By: #### G IPANEL #### [facility] [address] [place] [address] Dr. Radha LOUIS PARASITES GI PANEL PARASITES Normal [facility] Comment on above: Performed By: #### G IPANEL #### [facility] [address] [address] [address] Radha LOUIS VIRUS GI PANEL VIRUSES Normal [facility] Comment on above: Performed By: #### G IPANEL #### [facility] [address] [place] [address] Dr. Radha Garcia Norovirus GI/GII Detected Abnormal NOT DETECTED [facility] Comment on above: Performed By: #### G IPANEL #### [facility] [address] [place] [address] Dr. Radha Garcia P. Shigelloides Not detected Normal NOT DETECTED [facility] Comment on above: Performed By: #### G IPANEL #### [facility] [address] [place] [address] Dr. Radha Garcia Rotavirus A Not detected Normal NOT DETECTED [facility] Comment on above: Performed By: #### G IPANEL #### [facility] [address] [place] [address] Dr. Radha Garcia Salmonella Not detected Normal NOT DETECTED [facility] Comment on above: Performed By: #### G IPANEL #### [facility] [address] [place] [address] Dr. Radha Garcia Sapovirus Not detected Normal NOT DETECTED [facility] Comment on above: Performed By: #### G IPANEL #### [facility] [address] [place] [address] Dr. Radha Garcia STEC Not detected Normal NOT DETECTED [facility] Comment on above: Performed By: #### G IPANEL #### [facility] [address] [address] [address] Radha Garcia Vibrio Not detected Normal NOT DETECTED [facility] Comment on above: Performed By: #### G IPANEL #### [facility] [address] [place] [address] Dr. Radha Garcia Vibrio Cholera Not detected Normal NOT DETECTED [facility] Comment on above: Performed By: #### G IPANEL #### [facility] [address] [place] [address] Dr. Radha Garcia Y. Enterocolitica Not detected Normal NOT DETECTED [facility] Comment on above: Performed By: #### G IPANEL #### [facility] [address] [place] [address] Dr. Radha Garcia LIPASEon 10-19-2022 Lipase [Catalytic activity/Vol] 54.0 U/L Critically low 73.0-393.0 [facility] Comment on above: Performed By: #### L SAMUEL ROSS, CMP #### [facility] [address] [place] [address] Dr. Radha Garcia PROF 14(COMP METB)on 023 Albumin [Mass/Vol] 3.3 g/dL Critically low 3.4-5.0 [facility] Comment on above: Performed By: #### L ROSS BAKER, CMP #### [facility] [address] [place] [address] Dr. Radha Garcia Albumin/Globulin [Mass ratio] 1.0 {ratio} Normal [facility] Comment on above: Performed By: #### L SAMUEL ROSS, CMP #### [facility] [address] [place] [address] Dr. Radha Garcia ALP [Catalytic activity/Vol] 58 U/L Normal 46-116 [facility] Comment on above: Performed By: #### L IPA ROSS, CMP #### [facility] [address] [place] [address] Dr. Radha Garcia ALT [Catalytic activity/Vol] 25 U/L Normal 14-59 [facility] Comment on above: Performed By: #### L IPA ROSS, CMP #### [facility] [address] [place] [address] Dr. Radha Garcia Anion gap [Moles/Vol] 14.5 mmol/L Normal [facility] Comment on above: Performed By: #### L ROSS BAKER, CMP #### [facility] [address] [place] [address] Dr. Radha Garcia AST [Catalytic activity/Vol] 19 U/L Normal 15-37 [facility] Comment on above: Performed By: #### L ROSS BAKER, CMP #### [facility] [address] [place] [address] Dr. Radha Garcia Bilirubin [Mass/Vol] 0.8 mg/dL Normal 0.2-1.0 [facility] Comment on above: Performed By: #### L ROSS BAKER, CMP #### [facility] [address] [place] [address] Dr. Radha Garcia Calcium [Mass/Vol] 8.4 mg/dL Critically low 8.5-10.1 [facility] Comment on above: Performed By: #### L ROSS BAKER, CMP #### [facility] [address] [place] [address] Dr. Radha Garcia Chloride [Moles/Vol] 107 mmol/L Normal 98-107 [facility] Comment on above: Performed By: #### L ROSS BAKER, CMP #### [facility] [address] [place] [address] Dr. Radha Garcia CO2 [Moles/Vol] 25.8 mmol/L Normal 21.0-32.0 [facility] Comment on above: Performed By: #### L ROSS BAKER, CMP #### [facility] [address] [place] [address] Dr. Radha Garcia Creatinine [Mass/Vol] 0.78 mg/dL Normal 0.55-1.02 [facility] Comment on above: Performed By: #### L ROSS BAKER, CMP #### [facility] [address] [place] [address] Dr. Radha Garcia EGFR-AF CYMRO >60 Normal >=60 [facility] Comment on above: Performed By: #### L ROSS BAKER, CMP #### [facility] [address] [place] [address] Dr. Radha Garcia EGFR-NON AF CYMRO >60 Normal >=60 [facility] Comment on above: Performed By: #### L ROSS BAKER, CMP #### [facility] [address] [address] [address] Radha Garcia Globulin (S) [Mass/Vol] 3.2 g/dL Normal T [facility] Comment on above: Performed By: #### L ROSS BAKER, CMP #### [facility] [address] [address] [address] Radha Garcia Glucose [Mass/Vol] 96 mg/dL Normal 74-106 [facility] Comment on above: Performed By: #### L ROSS BAKER, CMP #### [facility] [address] [address] [address] Radha Garcia Potassium [Moles/Vol] 3.3 mmol/L Critically low 3.5-5.1 [facility] Comment on above: Performed By: #### L ROSS BAKER, CMP #### [facility] [address] [address] [address] Radha Garcia Protein [Mass/Vol] 6.5 g/dL Normal 6.4-8.2 [facility] Comment on above: Performed By: #### L ROSS BAKER, CMP #### [facility] [address] [address] [address] Radha Garcia Sodium [Moles/Vol] 144 mmol/L Normal 136-145 [facility] Comment on above: Performed By: #### L ROSS BAKER, CMP #### [facility] [address] [address] [address] Radha Garcia Urea nitrogen [Mass/Vol] 6.0 mg/dL Critically low 7.0-18.0 [facility] Comment on above: Performed By: #### L ROSS BAKER, CMP #### [facility] [address] [address] [address] Radha Garcia Urea nitrogen/Creatinine [Mass ratio] 7.7 mg/mg Normal [facility] Comment on above: Performed By: #### L ROSS BAKER, CMP #### [facility] [address] [address] [address] Radha Garcia 36on 07-16-2022 36 Attempted to call an d schedule an EGD, but mail box is full unable to leave a message. Will mail her a letter. Normal [facility] 36on 06-06-2022 36 ----- Message from Mary Jo Javier MA sent at 05/26/2022 10:02 AM EST ----- For your review! Normal [facility] BETA HCG, QUANTITATIVE FOR E Don 05-25-2022 HCG.beta subunit Qn m[IU]/mL Normal <5.0 [facility] Comment on above: Order Comment: Speci men Type: BLOOD SPECIMEN Ordering Facility: [facility] Address: [address] [address] Result Comment: Nega tive Performed By: #### 2 4323-8, 3040-3, HCGED, 92523-2 #### [facility] CLIA [id number] [place] [address] [place] CBC W Auto Differential pane l (Bld)on 05-25-2022 Basophils (Bld) [#/Vol] 10*3/uL Normal <0.11 [facility] Comment on above: Order Comment: Speci men Type: BLOOD SPECIMEN Ordering Facility: [facility] Address: [address] [address] Performed By: #### 5 7021-8 #### [facility] CLIA [id number] [place] [address] [place] Basophils/100 WBC (Bld) 0.1 % Normal [facility] Comment on above: Order Comment: Speci men Type: BLOOD SPECIMEN Ordering Facility: [facility] Address: [address] [address] Performed By: #### 5 7021-8 #### [facility] CLIA [id number] [place] [address] [place] Differential cell count method Nom (Bld) Auto Normal [facility] Comment on above: Order Comment: Speci men Type: BLOOD SPECIMEN Ordering Facility: [facility] Address: [address] [address] Performed By: #### 5 7021-8 #### [facility] [place] [id number] [address] [place] [address] [place] Eosinophils (Bld) [#/Vol] 0.08 10*3/uL Normal <0.46 [facility] Comment on above: Order Comment: Speci men Type: BLOOD SPECIMEN Ordering Facility: [facility] Address: [address] [address] Performed By: #### 5 7021-8 #### [facility] [place] [id number] [address] [place] [address] [place] Eosinophils/100 WBC (Bld) 1.0 % Normal [facility] Comment on above: Order Comment: Speci men Type: BLOOD SPECIMEN Ordering Facility: [facility] Address: [address] [address] Performed By: #### 5 7021-8 #### [facility] [place] [id number] [address] [place] [address] [place] Erythrocyte distribution width (RBC) [Ratio] 12.4 % Normal 11.5-15.0 [facility] Comment on above: Order Comment: Speci men Type: BLOOD SPECIMEN Ordering Facility: [facility] Address: [address] [address] Performed By: #### 5 7021-8 #### [facility] [place] [id number] [address] [place] [address] [place] Hematocrit (Bld) [Volume fraction] 43.0 % Normal 36.0-46.0 [facility] Comment on above: Order Comment: Speci men Type: BLOOD SPECIMEN Ordering Facility: [facility] Address: [address] [address] Performed By: #### 5 7021-8 #### [facility] [place] [id number] [address] [place] [address] [place] Hemoglobin (Bld) [Mass/Vol] 14.2 g/dL Normal 11.5-15.5 [facility] Comment on above: Order Comment: Speci men Type: BLOOD SPECIMEN Ordering Facility: [facility] Address: [address] [address] Performed By: #### 5 7021-8 #### [facility] CLIA [id number] [address] [place] [address] [place] Immature granulocytes (Bld) [#/Vol] 10*3/uL Normal <0.10 [facility] Comment on above: Order Comment: Speci men Type: BLOOD SPECIMEN Ordering Facility: [facility] Address: [address] [address] Performed By: #### 5 7021-8 #### [facility] CLIA [id number] [address] [place] [address] [place] Immature granulocytes/100 WBC (Bld) 0.2 % Normal [facility] Comment on above: Order Comment: Speci men Type: BLOOD SPECIMEN Ordering Facility: [facility] Address: [address] [address] Performed By: #### 5 7021-8 #### [facility] CLIA [id number] [address] [place] [address] [place] Lymphocytes (Bld) [#/Vol] 0.30 10*3/uL Low 1.00-4.00 [facility] Comment on above: Order Comment: Speci men Type: BLOOD SPECIMEN Ordering Facility: [facility] Address: [address] [address] Performed By: #### 5 7021-8 #### [facility] CLIA [id number] [place] Lymphocytes/100 WBC (Bld) 3.6 % Normal [facility] Comment on above: Order Comment: Speci men Type: BLOOD SPECIMEN Ordering Facility: [facility] Address: [address] [address] Performed By: #### 5 7021-8 #### [facility] CLIA [id number] [place] MCH (RBC) [Entitic mass] 28.7 pg Normal 26.0-34.0 [facility] Comment on above: Order Comment: Speci men Type: BLOOD SPECIMEN Ordering Facility: [facility] Address: [address] [address] Performed By: #### 5 7021-8 #### [facility] IA [id number] [address] [place] MCHC (RBC) [Mass/Vol] 33.0 g/dL Normal 30.5-36.0 [facility] Comment on above: Order Comment: Speci men Type: BLOOD SPECIMEN Ordering Facility: [facility] Address: [address] [place] [address] Performed By: #### 5 7021-8 #### [facility] [id number] [address] [place] [address] [place] MCV (RBC) [Entitic vol] 86.9 fL Normal 80.0-100.0 [facility] Comment on above: Order Comment: Speci men Type: BLOOD SPECIMEN Ordering Facility: [facility] Address: [address] [place] [address] Performed By: #### 5 7021-8 #### [facility] [id number] [place] [address] [place] Monocytes (Bld) [#/Vol] 0.19 10*3/uL Normal <0.87 [facility] Comment on above: Order Comment: Speci men Type: BLOOD SPECIMEN Ordering Facility: [facility] Address: [address] [address] Performed By: #### 5 7021-8 #### [facility] [id number] [place] [address] Monocytes/100 WBC (Bld) 2.3 % Normal [facility] Comment on above: Order Comment: Speci men Type: BLOOD SPECIMEN Ordering Facility: [facility] Address: [address] Performed By: #### 5 7021-8 #### [facility] IA [id number] [address] [place] [address] [place] Neutrophils (Bld) [#/Vol] 7.62 10*3/uL High 1.45-7.50 [facility] Comment on above: Order Comment: Speci men Type: BLOOD SPECIMEN Ordering Facility: [facility] Address: [address] [address] Performed By: #### 5 7021-8 #### [facility] CLIA [id number] [address] [place] [address] [place] Neutrophils/100 WBC (Bld) 92.8 % Normal [facility] Comment on above: Order Comment: Speci men Type: BLOOD SPECIMEN Ordering Facility: [facility] Address: [address] [address] Performed By: #### 5 7021-8 #### [facility] IA [id number] [address] [place] [address] [place] Nucleated RBC (Bld) [#/Vol] 10*3/uL Normal <0.01 [facility] Comment on above: Order Comment: Speci men Type: BLOOD SPECIMEN Ordering Facility: [facility] Address: [address] [address] Performed By: #### 5 7021-8 #### [facility] IA [id number] [address] [place] [address] [place] Nucleated RBC/100 WBC (Bld) [Ratio] 0.0 /100 WBC Normal [facility] Comment on above: Order Comment: Speci men Type: BLOOD SPECIMEN Ordering Facility: [facility] Address: [address] Performed By: #### 5 7021-8 #### [facility] IA [id number] [address] [place] [address] [place] Platelet mean volume (Bld) [Entitic vol] 10.5 fL Normal 9.0-12.7 [facility] Comment on above: Order Comment: Speci men Type: BLOOD SPECIMEN Ordering Facility: [facility] Address: [address] [address] Performed By: #### 5 7021-8 #### [facility] CLIA [id number] [address] [place] [address] [place] Platelets (Bld) [#/Vol] 264 10*3/uL Normal 150-400 [facility] Comment on above: Order Comment: Speci men Type: BLOOD SPECIMEN Ordering Facility: [facility] Address: [address] [address] Performed By: #### 5 7021-8 #### [facility] CLIA [id number] [address] [place] [address] [place] RBC (Bld) [#/Vol] 4.95 10*6/uL Normal 3.90-5.20 [facility] Comment on above: Order Comment: Speci men Type: BLOOD SPECIMEN Ordering Facility: [facility] Address: [address] Performed By: #### 5 7021-8 #### [facility] CLIA [id number] [address] [place] WBC (Bld) [#/Vol] 8.22 10*3/uL Normal 3.70-11.00 [facility] Comment on above: Order Comment: Speci men Type: BLOOD SPECIMEN Ordering Facility: [facility] Address: [address] Performed By: #### 5 7021-8 #### [facility] CLIA [id number] [address] [id number] [facility] Comprehensive metabolic 2000 panelon 05-25-2022 Albumin [Mass/Vol] 4.3 g/dL Normal 3.9-4.9 [facility] Comment on above: Order Comment: Speci men Type: BLOOD SPECIMEN Ordering Facility: [facility] Address: [address] Performed By: #### 2 4323-8, 3040-3, HCGED, 56532-0 #### [facility] CLIA [id number] [address] [place] [address] [place] ALP [Catalytic activity/Vol] 74 U/L Normal 34-123 [facility] Comment on above: Order Comment: Speci men Type: BLOOD SPECIMEN Ordering Facility: [facility] Address: [address] [place] [address] Performed By: #### 2 4323-8, 3040-3, HCGED, #### [facility] CLIA [id number] [address] [place] [address] [place] ALT [Catalytic activity/Vol] 23 U/L Normal 7-38 [facility] Comment on above: Order Comment: Speci men Type: BLOOD SPECIMEN Ordering Facility: [facility] Address: [address] [place] [address] Performed By: #### 2 4323-8, 3040-3, HCGED, 75151-9 #### [facility] CLIA [id number] [address] [place] [address] [place] Anion gap [Moles/Vol] 12 mmol/L Normal 9-18 [facility] Comment on above: Order Comment: Speci men Type: BLOOD SPECIMEN Ordering Facility: [facility] Address: [address] [place] [address] Performed By: #### 2 4323-8, 3040-3, HCGED, 45292-1 #### [facility] CLIA [id number] [facility] [place] [address] [place] AST [Catalytic activity/Vol] 15 U/L Normal 13-35 [facility] Comment on above: Order Comment: Speci men Type: BLOOD SPECIMEN Ordering Facility: [facility] Address: [address] [place] [address] Performed By: #### 2 4323-8, 3040-3, HCGED, 62707-8 #### [facility] CLIA [id number] [address] [place] [address] [place] Bilirubin [Mass/Vol] 1.0 mg/dL Normal 0.2-1.3 [facility] Comment on above: Order Comment: Speci men Type: BLOOD SPECIMEN Ordering Facility: [facility] Address: [address] [place] [address] Performed By: #### 2 4323-8, 3040-3, HCGED, #### [facility] CLIA [id number] [address] [place] [address] [place] Calcium [Mass/Vol] 8.8 mg/dL Normal 8.5-10.2 [facility] Comment on above: Order Comment: Speci men Type: BLOOD SPECIMEN Ordering Facility: [facility] Address: [address] [place] [address] Performed By: #### 2 4323-8, 3040-3, HCGED, #### [facility] CLIA [id number] [address] [place] [address] [place] Chloride [Moles/Vol] 107 mmol/L High 97-105 [facility] Comment on above: Order Comment: Speci men Type: BLOOD SPECIMEN Ordering Facility: [facility] Address: [address] [place] [address] Performed By: #### 2 4323-8, 3040-3, HCGED, #### [facility] CLIA [id number] [address] [place] [address] [place] CO2 [Moles/Vol] 22 mmol/L Normal 22-30 [facility] Comment on above: Order Comment: Speci men Type: BLOOD SPECIMEN Ordering Facility: [facility] Address: [address] [place] [address] Performed By: #### 2 4323-8, 3040-3, HCGED, #### [facility] CLIA [id number] [address] [place] [address] [place] Creatinine [Mass/Vol] 0.70 mg/dL Normal 0.58-0.96 [facility] Comment on above: Order Comment: Tad vu Type: BLOOD SPECIMEN Ordering Facility: [facility] Address: [address] [id number] Performed By: #### 2 4323-8, 3040-3, HCGED, 48523-2 #### [facility] CLIA [id number] [address] [place] [address] [place] ESTIMATED GLOMERULAR FILTRATION RATE 123 mL/min/1.73m??? Normal >=60 [facility] Comment on above: Order Comment: Tad vu Type: BLOOD SPECIMEN Ordering Facility: [facility] Address: [address] [phone] Result Comment: Hazel mated Glomerular Filtration Rate [...] Performed By: #### 2 4323-8, 3040-3, HCGED, 47846-9 #### [facility] CLIA [id number] [address] [place] [address] [place] Glucose [Mass/Vol] 97 mg/dL Normal 74-99 [facility] Comment on above: Order Comment: Tad vu Type: BLOOD SPECIMEN Ordering Facility: [facility] Address: [address] [place], [place] [id number] Result Comment: The [place] [employer] (ADA) provides guidance for cutoff [...] Standards of Medical Care in Diabetes 2016, [place] [employer]. Diabetes Care. 2016.39(Suppl 1). Performed By: #### 2 4323-8, 3040-3, HCGED, 97081-2 #### [facility] CLIA [id number] [address] [place] [address] [place] Potassium [Moles/Vol] 3.9 mmol/L Normal 3.7-5.1 [facility] Comment on above: Order Comment: Speci men Type: BLOOD SPECIMEN Ordering Facility: [facility] Address: [address] [address] Performed By: #### 2 4323-8, 3040-3, HCGED, 93691-1 #### [facility] CLIA [id number] [address] [place] [address] [place] Protein [Mass/Vol] 6.9 g/dL Normal 6.3-8.0 [facility] Comment on above: Order Comment: Speci men Type: BLOOD SPECIMEN Ordering Facility: [facility] Address: [address] [address] Performed By: #### 2 4323-8, 3040-3, HCGED, 59576-7 #### [facility] CLIA [id number] [address] [place] [address] [place] Sodium [Moles/Vol] 141 mmol/L Normal 136-144 [facility] Comment on above: Order Comment: Speci men Type: BLOOD SPECIMEN Ordering Facility: [facility] Address: [address] [address] Performed By: #### 2 4323-8, 3040-3, HCGED, 39596-9 #### [facility] CLIA [id number] [address] [place] [address] [place] Urea nitrogen [Mass/Vol] 13 mg/dL Normal 7-21 [facility] Comment on above: Order Comment: Speci men Type: BLOOD SPECIMEN Ordering Facility: [facility] Address: [address] [address] Performed By: #### 2 4323-8, 3040-3, HCGED, 07688-1 #### [facility] CLIA [id number] [address] [facility] [place] [address] [facility] ECG COMPLETEon 05-25-2022 ECG COMPLETE Ventricular Rate : 9 1 BPM Atrial Rate : 92 BPM P-R Interval : 150 ms QRS Duration : 85 ms Q-T Interval : 341 ms QTC Calculation(Bazett) : 420 ms Calculated P [place] : 33 degrees Calculated R [place] : 21 degrees Calculated T [place] : 24 degrees Sinus rhythm Low voltage, precordial leads Otherwise Normal ECG *SEE EPIC NOTE FOR INTERPRETATION Confirmed by KHADAR LUNA MD ([id number]), web content editor BE TORRES ([id number]) on 05/26/2022 1:50:52 PM NAME : JOVON LOPEZ PID : [id number] : 1995 Gender : Female Race : ORD : [id number] Procedure Date : May 24 2022 23:05:41 Edit Date : May 26 2022 13:50:57 Diagnosis: Sinus rhythm Low voltage, precordial leads Otherwise Normal ECG *SEE EPIC NOTE FOR INTERPRETATION Confirmed by KHADAR LUNA MD ([id number]), web content editor BE TORRES ([id number]) on 05/26/2022 1:50:52 PM Test Reason : Chest Pain Location : 302 : ED AVED-16 Overread By : KHADAR LUNA MD Edited By : BE TORRES Referred By : , Acquired by : [id number], [facility] ED NOTEon 05-25-2022 ED NOTE HNO ID: [id number] Author: Diamond Plata RN Service: Nursing Author [...] ED in no acute distress. DIAMOND PLATA [facility] [phone] [facility] ED PROV NOTEon 05-25-2022 ED PROV NOTE HNO ID: [id number] Author: Khadar Luna DO Service: Emergency Medicine [...] which was unremarkable. She followed up with level vial inside grinder yesterday, was told that her symptoms may [...] Clinical Impr (more content not included)... Normal [facility] Lipase SerPl-cCncon 05-25-20 Lipase [Catalytic activity/Vol] 15 U/L Low 16-61 [facility] Comment on above: Order Comment: Speci men Type: BLOOD SPECIMEN Ordering Facility: [facility] Address: [address] [place] [address] Performed By: #### 2 4323-8, 3040-3, HCGED, #### [facility] CLIA [id number] [address] [place] [address] [place] Magnesium SerPl-mCncon 05-25 Magnesium [Mass/Vol] 1.9 mg/dL Normal 1.7-2.3 [facility] Comment on above: Order Comment: Speci men Type: BLOOD SPECIMEN Ordering Facility: [facility] Address: [address] [place] [address] Performed By: #### 2 4323-8, 3040-3, [facility], #### [facility] CLIA [id number] [address] [place] [address] [place] Urinalysis complete panel (U )on 05-25-2022 Bilirubin Ql (U) Negative Normal Negative [facility] Comment on above: Order Comment: Speci men Type: URINE SPECIMEN Ordering Facility: [facility] Address: [address] [place] [address] Performed By: #### 2 4356-8 #### [facility] CLIA [id number] [address] [facility] [place] [address] [place] Clarity (Unsp spec) Clear Normal Clear [facility] Comment on above: Order Comment: Speci men Type: URINE SPECIMEN Ordering Facility: [facility] Address: [address] [place] [address] Performed By: #### 2 4356-8 #### [facility] CLIA [id number] [address] [place] [address] [place] Color (U) Yellow Normal Yellow [facility] Comment on above: Order Comment: Speci men Type: URINE SPECIMEN Ordering Facility: [facility] Address: [address] [address] Performed By: #### 2 4356-8 #### [facility] IA [id number] [address] [place] [address] [place] Epithelial cells LM.HPF (Urine sed) [#/Area] Few Normal [facility] Comment on above: Order Comment: Speci men Type: URINE SPECIMEN Ordering Facility: [facility] Address: [address] [address] Performed By: #### 2 4356-8 #### [facility] IA [id number] [address] [place] [address] [place] Glucose Test strip (U) [Mass/Vol] Negative Normal Negative [facility] Comment on above: Order Comment: Speci men Type: URINE SPECIMEN Ordering Facility: [facility] Address: [address] [address] Performed By: #### 2 4356-8 #### [facility] IA [id number] [address] [place] [address] [place] Hemoglobin Ql (U) Negative Normal Negative [facility] Comment on above: Order Comment: Speci men Type: URINE SPECIMEN Ordering Facility: [facility] Address: [address] [address] Performed By: #### 2 4356-8 #### [facility] IA [id number] [address] [place] [address] [place] Ketones Ql (U) 3+ Abnormal Trace, Negative [facility] Comment on above: Order Comment: Speci men Type: URINE SPECIMEN Ordering Facility: [facility] Address: [address] [address] Performed By: #### 2 4356-8 #### [facility] CLIA [id number] [address] [place] [address] [place] Leukocyte esterase Test strip Ql (U) 1+ Abnormal Negative [facility] Comment on above: Order Comment: Speci men Type: URINE SPECIMEN Ordering Facility: [facility] Address: [address] [address] Performed By: #### 2 4356-8 #### [facility] IA [id number] [address] [place] [address] [place] Nitrite Ql (U) Negative Normal Negative [facility] Comment on above: Order Comment: Speci men Type: URINE SPECIMEN Ordering Facility: [facility] Address: [address] [place] [address] Performed By: #### 2 4356-8 #### [facility] IA [id number] [address] [place] [address] [place] pH (U) 5.5 [pH] Normal 5.0-8.0 [facility] Comment on above: Order Comment: Speci men Type: URINE SPECIMEN Ordering Facility: [facility] Address: [address] [place] [address] Performed By: #### 2 4356-8 #### [facility] IA [id number] [address] [place] [address] [place] Protein (U) [Mass/Vol] Trace Normal Trace , Negative [facility] Comment on above: Order Comment: Speci men Type: URINE SPECIMEN Ordering Facility: [facility] Address: [address] [place] [address] Performed By: #### 2 4356-8 #### [facility] IA [id number] [address] [place] [address] [place] RBC LM.HPF (Urine sed) [#/Area] 0-3 /HPF Normal 0-3 /HPF [facility] Comment on above: Order Comment: Speci men Type: URINE SPECIMEN Ordering Facility: [facility] Address: [address] [place] [address] Performed By: #### 2 4356-8 #### [facility] IA [id number] [place] [address] [place] Specific gravity (U) [Rel density] 1.026 Normal 1.005-1.030 [facility] Comment on above: Order Comment: Speci men Type: URINE SPECIMEN Ordering Facility: [facility] Address: [address] [address] Performed By: #### 2 4356-8 #### [facility] CLIA [id number] [address] [place], [place] [address] [place] [address] [facility] Urobilinogen Ql (U) 0.2 EU/dL Normal 0.2-1.0 EU/dL [facility] Comment on above: Order Comment: Speci men Type: URINE SPECIMEN Ordering Facility: [facility] Address: [address] [address] Performed By: #### 2 4356-8 #### [facility] CLIA [id number] [address] [place] WBC LM.HPF (Urine sed) [#/Area] 6-10 /HPF Abnormal 0-5 /HPF [facility] Comment on above: Order Comment: Speci men Type: URINE SPECIMEN Ordering Facility: [facility] Address: [address] [place] [address] Performed By: #### 2 4356-8 #### [facility] IA [id number] [address] [place] ED NOTEon 05-24-2022 ED NOTE HNO ID: [id number] Author: Gabby Barone RN Service: ? Author Type: Registered Nurse Type: ED Notes Filed: 05/24/2022 9:23 PM Note Text: Patient presents with nausea, vomiting, diarrhea, and centralized abdominal pain for about 5 months. States she has lost about 45 pounds and is unable to eat or drink without pain. GABBY BARONE [facility] [phone] Normal [facility] Office Visiton 05-23-2022 Follow-up visit [id number] Jovon Lopez 1995 F Date Provider Department Center 05/23/2022 Kevan-GONZALEZ POWELL UTC[facility] No family history on file Level of Service:77270 [place] OFFICE/OUTPATIENT ESTABLISHED MOD MDM 30-39 MIN () Reason for Visit and Comments: New Patient [632] Fatigue [46] - Had gallbladder removed in 03/2021, Dr. Powell found and fixed leak 04/2021, pt is having major problems with eating and drinking. Was referred back in 2020 Normal [facility] Automated erythrocytes count in urine sediment (number/area)Ordered By: Reggie Maynard on 05-17-2022 RBC Auto (Urine sed) [#/Area] 5-9 [HPF] 0-4 [facility] Automated leukocytes count i n urine sediment (number/area)Ordered By: Reggie Maynard on 05-17-2022 WBC Auto (Urine sed) [#/Area] 50-100 [HPF] 0-4 [facility] Basophils Auto (Bld) [#/Vol] Ordered By: Reggie Maynard on 05-17-2022 Basophils (Bld) [#/Vol] 0.1 10*3/uL 0.0-0.2 [facility] Basophils/100 WBC Auto (Bld) Ordered By: Reggie Maynard on 05-17-2022 Basophils/100 WBC (Bld) 0.7 % . F [facility] Bilirubin Test strip Ql (U)O rdered By: Reggie Maynard on 05-17-2022 Bilirubin Ql (U) Negative Negative [facility] Body fluid albumin measureme nt (mass/volume)Ordered By: Reggie Maynard on 05-17-2022 Albumin (Body fld) [Mass/Vol] 3.8 g/dL 3.2-5.5 [facility] Color Auto (U)Ordered By: Hadley Maynard on 05-17-2022 Color (U) Yellow Yellow [facility] Creatinine and Glomerular fi ltration rate.predicted panel (S/P/Bld)Ordered By: Reggie Maynard on 05-17-2022 Creatinine [Mass/Vol] 0.64 mg/dL 0.44-1.03 [facility] Direct bilirubin measurement Ordered By: Reggie Maynard on 05-17-2022 Bilirubin.direct [Mass/Vol] 0.1 mg/dL 0.0-0.4 [facility] Eosinophils Auto (Bld) [#/Vo l]Ordered By: Reggie Maynard on 05-17-2022 Eosinophils (Bld) [#/Vol] 0.3 10*3/uL 0.0-0.45 [facility] Eosinophils/100 WBC Auto (Bl d)Ordered By: Reggie Maynard on 05-17-2022 Eosinophils/100 WBC (Bld) 4.2 % . [facility] Erythrocyte distribution wid th Auto (RBC) [Ratio]Ordered By: Reggie Maynard on 05-17-2022 Erythrocyte distribution width (RBC) [Ratio] 13.0 % 11.9-15.3 [facility] Estimated glomerular filtrat ion rate (GFR) non- AmericanOrdered By: Reggie Maynard on 05-17-2022 GFR/1.73 sq M.predicted among non-blacks MDRD (S/P/Bld) [Vol rate/Area] > 60 mL/Min [facility] Globulin Calc (S) [Mass/Vol] Ordered By: Reggie Maynard on 05-17-2022 Globulin (S) [Mass/Vol] 3.3 g/dL F [facility] HCG ( test) IA.rapi d Ql (U)Ordered By: Reggie Maynard on 05-17-2022 HCG ( test) Ql (U) Negative [facility] Hematocrit Auto (Bld) [Volum e fraction]Ordered By: Reggie Maynard on 05-17-2022 Hematocrit (Bld) [Volume fraction] 42.9 % 34.0-46.4 [facility] Hemoglobin [Mass/volume] in BloodOrdered By: Reggie Maynard on 05-17-2022 Hemoglobin (Bld) [Mass/Vol] 14.5 g/dL 11.8-15.4 [facility] Ketones Auto test strip (U) [Mass/Vol]Ordered By: Reggie Maynard on 05-17-2022 Ketones (U) [Mass/Vol] Negative Negative Fi [facility] Laboratory - Chemistry and C hemistry - challengeOrdered By: Reggie Maynard on 05-17-2022 Lipase [Catalytic activity/Vol] 30.0 U/L 22-51 [facility] Laboratory - UrinalysisOrder ed By: Reggie Maynard on 05-17-2022 Hyaline casts LM Ql (Urine sed) 0-8 [LPF] 0-8 [facility] Leukocytes [#/volume] correc gema for nucleated erythrocytes in Blood by Automated counOrdered By: Reggie Maynard on 05-17-2022 WBC corrected for nucl RBC Auto (Bld) [#/Vol] 7.0 10*3/uL 3.8-11.6 [facility] Lymphocytes Auto (Bld) [#/Vo l]Ordered By: Reggie Maynard on 05-17-2022 Lymphocytes (Bld) [#/Vol] 1.4 10*3/uL 1.00-4.8 [facility] Lymphocytes/100 WBC Auto (Bl d)Ordered By: Reggie Maynard on 05-17-2022 Lymphocytes/100 WBC (Bld) 20.4 % . [facility] MCH Auto (RBC) [Entitic mass ]Ordered By: Reggie Maynard on 05-17-2022 MCH (RBC) [Entitic mass] 29.6 pg 24.7-34.3 [facility] MCHC Auto (RBC) [Mass/Vol]Or dered By: Reggie Maynard on 05-17-2022 MCHC (RBC) [Mass/Vol] 33.7 g/dL 32.0-35.0 [facility] MCV Auto (RBC) [Entitic vol] Ordered By: Reggie Maynard on 05-17-2022 MCV (RBC) [Entitic vol] 87.9 fL 80-100 F [facility] Monocyte distribution width [Entitic volume] in Blood by AutomatedOrdered By: Reggie Maynard on 05-17-2022 Monocyte distribution width Auto (Bld) [Entitic vol] 17.93 % 0.00-20.00 [facility] Monocytes Auto (Bld) [#/Vol] Ordered By: Reggie Maynard on 05-17-2022 Monocytes (Bld) [#/Vol] 0.3 10*3/uL 0.0-0.8 [facility] Monocytes/100 WBC Auto (Bld) Ordered By: Reggie Maynard on 05-17-2022 Monocytes/100 WBC (Bld) 4.1 % . F [facility] Mucus LM Ql (Urine sed)Order ed By: Reggie Maynard on 05-17-2022 Mucus Ql (Urine sed) 2+ [LPF] [facility] Neutrophils Auto (Bld) [#/Vo l]Ordered By: Reggie Maynard on 05-17-2022 Neutrophils (Bld) [#/Vol] 4.9 10*3/uL 1.8-7.7 [facility] Neutrophils/100 WBC Auto (Bl d)Ordered By: Reggie Maynard on 05-17-2022 Neutrophils/100 WBC (Bld) 70.6 % . [facility] Nitrite Test strip Ql (U)Ord ered By: Reggie Maynard on 05-17-2022 Nitrite Ql (U) Negative Negative [facility] No Panel InformationOrdered By: Reggie Maynard on 05-17-2022 Estimated GFR () > 60 mL/Min [facility] Comment on above: GFR estimated refere nce range: According to KDOQI guidelines, <60 ml/min/1.73m2 is sufficient to diagnose a patient with chronic kidney disease. Pharmacy Creatinine Clearance (Chem 111.16 [facility] Nucleated erythrocytes [Pres ence] in Blood by Automated countOrdered By: Reggie Maynard on 05-17-2022 Nucleated RBC Auto Ql (Bld) 0.2 /100{WBC} 0-0.5 [facility] Platelet mean volume Auto (B ld) [Entitic vol]Ordered By: Reggie Maynard on 05-17-2022 Platelet mean volume (Bld) [Entitic vol] 8.7 fL 6.3-10.7 [facility] Platelets Auto (Bld) [#/Vol] Ordered By: Reggie Maynard on 05-17-2022 Platelets (Bld) [#/Vol] 323 10*3/uL 150-450 [facility] Protein Auto test strip (U) [Mass/Vol]Ordered By: Reggie Maynard on 05-17-2022 Protein (U) [Mass/Vol] Negative Negative Fi [facility] Protein [Mass/volume] in Ser um or PlasmaOrdered By: Reggie Maynard on 05-17-2022 Protein [Mass/Vol] 7.1 g/dL 6.1-7.9 [facility] RBC Auto (Bld) [#/Vol]Ordere d By: Reggie Maynard on 05-17-2022 RBC (Bld) [#/Vol] 4.88 10*6/uL 3.60-5.00 [facility] Serum or plasma alanine rangel otransferase measurement without P-5'-P (enzymatic activiOrdered By: Reggie Maynard on 05-17-2022 ALT No additional P-5'-P [Catalytic activity/Vol] 22 U/L 10-60 [facility] Serum or plasma albumin/glob ulin mass ratioOrdered By: Reggie Maynard on 05-17-2022 Albumin/Globulin [Mass ratio] 1.2 {ratio} [facility] Serum or plasma alkaline ely sphatase measurement (enzymatic activity/volume)Ordered By: Reggie Maynard on 05-17-2022 ALP [Catalytic activity/Vol] 56 U/L 32-92 [facility] Serum or plasma anion gap de terminationOrdered By: Reggie Maynard on 05-17-2022 Anion gap [Moles/Vol] 14.6 mmol/L 6.0-15.0 [facility] Serum or plasma aspartate am inotransferase measurement (enzymatic activity/volume)Ordered By: Reggie Maynard on 05-17-2022 AST [Catalytic activity/Vol] 16 U/L 10-42 [facility] Serum or plasma calcium bryon urement (mass/volume)Ordered By: Reggie Maynard on 05-17-2022 Calcium [Mass/Vol] 8.9 mg/dL 8.2-10.2 [facility] Serum or plasma chloride jamir surement (moles/volume)Ordered By: Reggie Maynard on 05-17-2022 Chloride [Moles/Vol] 106 mmol/L 95-114 [facility] Serum or plasma glucose bryon urement (mass/volume)Ordered By: Reggie Maynard on 05-17-2022 Glucose [Mass/Vol] 94 mg/dL 70-100 [facility] Comment on above: ADA recommended refe rence rangeRandom Glucose Reference Range is dependent on time and content of last meal. Glucose of more than 200 mg/dL in a nonstressed, ambulatory subject supports the diagnosis of Diabetes Mellitus. Serum or plasma non-glucuron idated bilirubin measurement (mass/volume)Ordered By: Reggie Maynard on 05-17-2022 Bilirubin.indirect [Mass/Vol] 0.7 mg/dL [facility] Serum or plasma potassium me asurement (moles/volume)Ordered By: Reggie Maynard on 05-17-2022 Potassium [Moles/Vol] 4.3 mmol/L 3.5-5.1 [facility] Serum or plasma sodium measu rement (moles/volume)Ordered By: Reggie Maynard on 05-17-2022 Sodium [Moles/Vol] 138 mmol/L 136-146 [facility] Serum or plasma total biliru bin measurement (mass/volume)Ordered By: Reggie Maynard on 05-17-2022 Bilirubin [Mass/Vol] 0.8 mg/dL 0.3-1.2 [facility] Serum or plasma total carbon dioxide measurement (moles/volume)Ordered By: Reggie Maynard on 05-17-2022 CO2 [Moles/Vol] 21.7 mmol/L 22.0-30.0 [facility] Serum or plasma urea nitroge n measurement (mass/volume)Ordered By: Reggie Maynard 05-17-2022 Urea nitrogen [Mass/Vol] 15 mg/dL 9-23 [facility] Specific gravity Auto test s trip (U) [Rel density]Ordered By: Reggie Maynard on 05-17-2022 Specific gravity (U) [Rel density] 1.028 1.001-1.030 [facility] Squamous epithelial cells de tection in urine sediment by light microscopyOrdered By: Reggie Maynard on 05-17-2022 Epithelial cells.squamous LM Ql (Urine sed) 3-4 [HPF] 0-2 [facility] Urine bacteria detection by automated methodOrdered By: Reggie Maynard on 05-17-2022 Bacteria Auto Ql (U) None seen None Seen [facility] Urine clarity by refractomet ry automatedOrdered By: Reggie Maynard on 05-17-2022 Clarity Refractometry automated (U) Clear Clear [facility] Urine glucose measurement by automated test strip (mass/volume)Ordered By: Reggie Maynard on 05-17-2022 Glucose Auto test strip (U) [Mass/Vol] Normal mg/dL Normal [facility] Urine hemoglobin detection b y automated test stripOrdered By: Reggie Maynard on 05-17-2022 Hemoglobin Auto test strip Ql (U) Negative Negative [facility] Urine leukocyte esterase det ection by automated test stripOrdered By: Reggie Maynard on 05-17-2022 Leukocyte esterase Auto test strip Ql (U) 3+ Negative [facility] Urine sediment renal epithel ial cell count by microscopy (number/high power field)Ordered By: Reggie Maynard on 05-17-2022 Epithelial cells.renal LM.HPF (Urine sed) [#/Area] None seen [HPF] 0-1 [facility] Urobilinogen Auto test strip (U) [Mass/Vol]Ordered By: Reggie Maynard on 05-17-2022 Urobilinogen (U) [Mass/Vol] Normal mg/dL Normal [facility] WBC Auto (Bld) [#/Vol]Ordere d By: Reggie Maynard on 05-17-2022 WBC (Bld) [#/Vol] 7.0 10*3/uL 3.8-11.6 [facility] pH Auto test strip (U)Ordere d By: Reggie Maynard on 05-17-2022 pH (U) 5.5 [pH] 5.0-9.0 [facility] AMYLASEon 05-01-2022 Amylase [Catalytic activity/Vol] 61 U/L Normal 25-115 [facility] Comment on above: Performed By: #### L IPA, CMP, ROSS #### [facility] [address] [address] [address] Radha Garcia CBC AUTO DIFFon 05-01-2022 BASO # 0.0 103/ul Normal 0.0-0.1 [facility] Comment on above: Performed By: #### C BC #### [facility] [address] [address] [address] Radha Garcia Basophils/100 WBC (Bld) 0.4 % Normal 0.2-2.0 [facility] Comment on above: Performed By: #### C BC #### [facility] [address] [place] [address] Dr. Radha Garcia EO # 0.2 103/ul Normal 0.0-0.7 [facility] Comment on above: Performed By: #### C BC #### [facility] [address] [place] [address] Dr. Radha Garcia Eosinophils/100 WBC (Bld) 3.0 % Normal 0.9-7.0 [facility] Comment on above: Performed By: #### C BC #### [facility] [address] [place] [address] Dr. Radha Garcia Erythrocyte distribution width (RBC) [Ratio] 12.4 % Normal 11.0-15.0 [facility] Comment on above: Performed By: #### C BC #### [facility] [address] [place] [address] Dr. Radha Garcia Hematocrit (Bld) [Volume fraction] 40.5 % Normal 36.0-48.0 [facility] Comment on above: Performed By: #### C BC #### [facility] [address] [place] [address] Dr. Radha Garcia Hemoglobin (Bld) [Mass/Vol] 13.7 g/dL Normal 12.0-16.0 [facility] Comment on above: Performed By: #### C BC #### [facility] [address] [place] [address] Dr. Radha Garcia IG # 0.01 10e3/ul Normal 0.00-0.03 [facility] Comment on above: Performed By: #### C BC #### [facility] [address] [place] [address] Dr. Radha Garcia IG % 0.1 % Normal 0.0-0.5 [facility] Comment on above: Performed By: #### C BC #### [facility] [address] [place] [address] Dr. Radha Garcia LYMPH # 2.1 103/ul Normal 1.2-3.8 [facility] Comment on above: Performed By: #### C BC #### [facility] [address] [place] [address] Dr. Radha Garcia Lymphocytes/100 WBC (Bld) 30.7 % Normal 20.5-60.0 [facility] Comment on above: Performed By: #### C BC #### [facility] [address] [place] [address] Dr. Radha Garcia MANUAL DIFF REQ NO Normal [facility] Comment on above: Performed By: #### C BC #### [facility] [address] [place] [address] Dr. Radha Garcia MCH (RBC) [Entitic mass] 29.9 pg Normal 26.7-34.0 [facility] Comment on above: Performed By: #### C BC #### [facility] [address] [place] [address] Dr. Radha Garcia MCHC (RBC) [Mass/Vol] 33.8 g/dL Normal 29.9-35.2 [facility] Comment on above: Performed By: #### C BC #### [facility] [address] [place] [address] Dr. Radha Garcia MCV (RBC) [Entitic vol] 88.4 fL Normal 81.0-99.0 [facility] Comment on above: Performed By: #### C BC #### [facility] [address] [place] [address] Dr. Radha Garcia MONO # 0.5 103/ul Normal 0.3-0.8 [facility] Comment on above: Performed By: #### C BC #### [facility] [address] [place] [address] Dr. Radha Garcia Monocytes/100 WBC (Bld) 6.6 % Normal 1.7-12.0 [facility] Comment on above: Performed By: #### C BC #### [facility] [address] [place] [address] Dr. Radha Garcia NEUT # 4.1 103/ul Normal 1.4-6.5 [facility] Comment on above: Performed By: #### C BC #### [facility] [address] [place] [address] Dr. Radha Garcia Neutrophils/100 WBC (Bld) 59.2 % Normal 43.0-75.0 [facility] Comment on above: Performed By: #### C BC #### [facility] [address] [place] [address] Dr. Radha Garcia Platelet mean volume (Bld) [Entitic vol] 10.6 fL Normal 9.5-13.5 [facility] Comment on above: Performed By: #### C BC #### [facility] [address] [place] [address] Dr. Radha Garcia PLT 263 103/ul Normal 150-450 [facility] Comment on above: Performed By: #### C BC #### [facility] [address] [place] [address] Dr. Radha Garcia RBC 4.58 106/ul Normal 4.20-5.40 [facility] Comment on above: Performed By: #### C BC #### [facility] [address] [place] [address] Dr. Radha Garcia WBC 6.9 103/ul Normal 4.0-11.0 [facility] Comment on above: Performed By: #### C BC #### [facility] [address] [place] [address] ABD/PELV W CONon [...] by: RAFA KAPLAN Date: 2022-05-01 03:30 Normal [facility] LIPASEon 05-01-2022 Lipase [Catalytic activity/Vol] 63.0 U/L Critically low 73.0-393.0 [facility] Comment on above: Performed By: #### L IPA, CMP, ROSS #### [facility] [address] [address] [address] Radha Garcia PREG HCG QUALon 05-01-2022 , QUAL Negative Normal NEGATIVE [facility] Comment on above: Performed By: #### C BC #### [facility] [address] [address] [address] Radha Garcia PROF 14(COMP METB)on 022 Albumin [Mass/Vol] 3.9 g/dL Normal 3.4-5.0 [facility] Comment on above: Performed By: #### L IPA, CMP, ROSS #### [facility] [address] [address] [address] Radha Garcia Albumin/Globulin [Mass ratio] 1.2 {ratio} Normal [facility] Comment on above: Performed By: #### L IPA, CMP, ROSS #### [facility] [address] [address] [address] Radha Garcia ALP [Catalytic activity/Vol] 73 U/L Normal 46-116 [facility] Comment on above: Performed By: #### L IPA, CMP, ROSS #### [facility] [address] [address] [address] Radha Garcia ALT [Catalytic activity/Vol] 13 U/L Critically low 14-59 [facility] Comment on above: Performed By: #### L IPA, CMP, ROSS #### [facility] [address] [address] [address] Radha Garcia Anion gap [Moles/Vol] 9.0 mmol/L Normal [facility] Comment on above: Performed By: #### L IPA, CMP, ROSS #### [facility] [address] [address] [address] Radha Garcia AST [Catalytic activity/Vol] 12 U/L Critically low 15-37 [facility] Comment on above: Performed By: #### L IPA, CMP, ROSS #### [facility] [address] [address] [address] Radha Garcia Bilirubin [Mass/Vol] 0.6 mg/dL Normal 0.2-1.0 [facility] Comment on above: Performed By: #### L IPA, CMP, ROSS #### [facility] [address] [place] [address] Dr. Radha Garcia Calcium [Mass/Vol] 8.7 mg/dL Normal 8.5-10.1 [facility] Comment on above: Performed By: #### L IPA, CMP, ROSS #### [facility] [address] [place] [address] Dr. Radha Garcia Chloride [Moles/Vol] 106 mmol/L Normal 98-107 [facility] Comment on above: Performed By: #### L IPA, CMP, ROSS #### [facility] [address] [address] [address] Radha Garcia CO2 [Moles/Vol] 26.4 mmol/L Normal 21.0-32.0 [facility] Comment on above: Performed By: #### L IPA, CMP, ROSS #### [facility] [address] [place] [address] Dr. Radha Garcia Creatinine [Mass/Vol] 0.71 mg/dL Normal 0.55-1.02 [facility] Comment on above: Performed By: #### L IPA, CMP, ROSS #### [facility] [address] [place] [address] Dr. Radha Garcia EGFR-AF CYMRO >60 Normal >=60 [facility] Comment on above: Performed By: #### L IPA, CMP, ROSS #### [facility] [address] [place] [address] Dr. Radha Garcia EGFR-NON AF CYMRO >60 Normal >=60 [facility] Comment on above: Performed By: #### L IPA, CMP, ROSS #### [facility] [address] [address] [address] Radha Garcia Globulin (S) [Mass/Vol] 3.3 g/dL Normal T [facility] Comment on above: Performed By: #### L IPA, CMP, ROSS #### [facility] [address] [address] [address] Radha Garcia Glucose [Mass/Vol] 89 mg/dL Normal 74-106 [facility] Comment on above: Performed By: #### L IPA, CMP, ROSS #### [facility] [address] [address] [address] Radha Garcia Potassium [Moles/Vol] 3.4 mmol/L Critically low 3.5-5.1 [facility] Comment on above: Performed By: #### L IPA, CMP, ROSS #### [facility] [address] [place] [address] Dr. Radha Garcia Protein [Mass/Vol] 7.2 g/dL Normal 6.4-8.2 [facility] Comment on above: Performed By: #### L IPA, CMP, ROSS #### [facility] [address] [place] [address] Dr. Radha Garcia Sodium [Moles/Vol] 138 mmol/L Normal 136-145 [facility] Comment on above: Performed By: #### L IPA, CMP, ROSS #### [facility] [address] [place] [address] Dr. Radha Garcia Urea nitrogen [Mass/Vol] 12.0 mg/dL Normal 7.0-18.0 [facility] Comment on above: Performed By: #### L IPA, CMP, ROSS #### [facility] [address] [place] [address] Dr. Radha Garcia Urea nitrogen/Creatinine [Mass ratio] 16.9 mg/mg Normal [facility] Comment on above: Performed By: #### L IPA, CMP, ROSS #### [facility] [address] [place] [address] Dr. Radha Garcia Q - DRUG TOX MONITORING 6 WI TH CONFIRMATION,URINEon 05-23-2021 Amphetamines Negative Normal <500 [facility] Specialist Comment on above: Order Comment: [facility] performed at: [employer] [facility], [address] , [address] [place] [address], [address] [place] [address], [employer]ic: Shamar Colunga MD [facility] Collection Date/Time: [facility] Results Received Date/Time: [facility] Reported Date/Time: FASTING: NO Performed By: #### [id number] #### [facility] [address] [place] [address] Barbiturates Negative Normal <300 [facility] Specialist Comment on above: Order Comment: [facility] performed at: [employer] [facility], [address] , [address] [place] [address], [address] [place] [address], [employer]ic: Shamar Colunga MD [facility] Date/Time: [facility] Results Received Date/Time: [facility] Reported Date/Time: FASTING: NO Performed By: #### 9 [id number] #### [facility] [address] [place] [address] Benzodiazepines Negative Normal <100 [facility] Specialist Comment on above: Order Comment: [facility] performed at: [employer] [facility], [address] , [address] [place] [address], [address] [place] [address], [employer]ic: Shamar Colunga MD [facility] Date/Time: [facility] Results Received Date/Time: [facility] Reported Date/Time: FASTING: NO Performed By: #### 9 [id number] #### [facility] [address] [place] [address] Cocaine Metabolite Negative Normal <150 [facility] Comment on above: Order Comment: [facility] performed at: [employer] [facility], [address] , [address] [place] [address], [address] [place] [address], [employer]ic: Shamar Colunga MD [facility] Date/Time: [facility] Results Received Date/Time: [facility] Reported Date/Time: FASTING: NO Performed By: #### 9 [id number] #### [facility] [address] [place] [address] COMMENT SEE NOTE Normal [facility] Comment on above: Order Comment: [facility] performed at: [employer] [facility], [address] [facility], [address] [place] [address], [address] [place] [address], [employer]ic: Shamar Colunga MD [facility] Date/Time: [facility] Results Received Date/Time: [facility] Reported Date/Time: FASTING: NO Result Comment: See Note 2 Note 1 This test was developed and its analytical performance characteristics have been determined by [employer]. It has not been cleared or approved [...] interpreting these drug results, please contact a [employer] Toxicology Specialist: [phone] ( ), M-F, 8am-6pm EST. Performed By: #### [id number] #### [facility] [address] [place] [address] Marijuana Metabolite 73 ng/mL High <5 [facility] Comment on above: Order Comment: [facility] performed at: [employer] [facility], [address] , [address] [place] [address], [id number], [employer]ic: Shamar Colunga MD [facility] Date/Time: [id number] [facility] Results Received Date/Time: [facility] Reported Date/Time: FASTING: NO Result Comment: See Note 1 Performed By: #### 9 [id number] #### [facility] Default [address] [place] [address] Marijuana Metabolite 20 Positive Abnormal <20 [facility] Comment on above: Order Comment: [facility] Testing performed at: [employer], [employer] [facility], [address] [facility], [address] [place] [address], [address] [place] [address], Electrical And Radio Mock Up Mechanic: Shamar Colunga MD [facility] Collection Date/Time: [facility] Results Received Date/Time: [facility] Reported Date/Time: FASTING: NO Performed By: #### 9 [id number] #### [facility] [address] [place] [address] Methadone Metabolite Negative Normal <100 [facility] Specialist Comment on above: Order Comment: [facility] Testing performed at: [employer], [employer] [facility], [address] [facility], [address] [place] [address], [phone], Electrical And Radio Mock Up Mechanic: Shamar Colunga MD [facility] Collection Date/Time: [facility] Results Received Date/Time: [facility] Reported Date/Time: FASTING: NO Performed By: #### 9 [id number] #### [facility] [address] [place] [address] Opiates Negative Normal <100 [facility] Specialist Comment on above: Order Comment: [facility] Testing performed at: [facility], [employer] [facility], [address] [facility], [address] [place] [address], [phone], Electrical And Radio Mock Up Mechanic: Shamar Colunga MD [facility] Collection Date/Time: [facility] Results Received Date/Time: [facility] Reported Date/Time: FASTING: NO Performed By: #### 9 [id number] #### [facility] [address] [place] [address] Oxycodone Negative Normal <100 [facility] Specialist Comment on above: Order Comment: [facility] Testing performed at: [employer], [employer] [facility], [address] [facility], [address] [place] [address], [phone], Electrical And Radio Mock Up Mechanic: Shamar Colunga MD [facility] Collection Date/Time: [id number] [facility] Results Received Date/Time: [id number] [facility] Reported Date/Time: FASTING: NO Performed By: #### 9 1486 #### [facility] [address] [place] [address] Phencyclidine Negative Normal <[address] [facility] Comment on above: Order Comment: [facility] Testing performed at: [facility], [facility], [address] [place] [address], [address] [place] [address], [phone], Electrical And Radio Mock Up Mechanic: Shamar Colunga MD [facility] Collection Date/Time: [id number] [facility] Results Received Date/Time: [facility] Reported Date/Time: FASTING: NO Performed By: #### 9 1486 #### [facility] [address] [place] [address] ERCPon 05-01-2021 ERCP [facility] Department of Radiology [address] [place] [id number] Patient Name: JOVON LOPEZ : 1995 [...] procedure. Electronically signed: Neris Guevara. Transcribed by: [email or web address], User Resident: Electronically Signed by: NERIS GUEVARA @ 05/03/2021 08:12 AM Normal [facility] Comment on above: Order Comment: Evalu ate Endoscopy Reporton Endoscopy Report MR#: [id number] [facility] Pt. Name: Jovon Lopez Surgery Date: 05/01/2021 Room #: 7A Date of : 1995 PROCEDURE NOTE ATTENDING: Gonzalez Powell M.D. PROPERTY LOSS INSURANCE CLAIM ADJUSTER: Te Bacon MD. (Advanced Endoscopy Gastroenterology Fellow). [...] Bacon MD Date Trans: 05/01/2021 06:34 P/sandra [id number] Normal [facility] POC SARS COV2 ANTIGEN NEGATI VEon 05-01-2021 POC SARS COV2 ANTIGEN NEG Negative Normal NEGATIVE [facility] Comment on above: Result Comment: Nega tive [...] signs and symptoms consistent with COVID-19. [employer] COVID-19 Ag Card is a lateral [...] Accreditation. Performed By: #### 3 1977 #### [facility] [address] [facility] POC URINE PREGNANCYon 2020 Beta HCG ( test) Ql (U) Negative Normal NEGATIVE [facility] Comment on above: Result Comment: Perf ormed in PACU Performed By: #### 8 [id number] #### [facility] [address] [facility]. [place], [place] [id number] [place] [address] Hemoglobinon 02-14-2021 Hemoglobin (Bld) [Mass/Vol] 11.4 g/dL Low 11.9-15.1 [facility] Comment on above: Performed By: #### H GB #### [address] [place] [address] Authorization Coordinator: Ilir Prasad MD HemoglobinOrdered By: Cherelle Mera on 02-14-2021 Hemoglobin.gastrointest inal spec 1 Ql (Stl) 11.4 g/dL Low 11.9 - 15.1 g/dL [facility] [employer] Phone: Interpretation and review of laboratory results Abnormal [facility] Phone: [facility] Phone: OPERATIVE REPORTon 1 OPERATIVE REPORT [address] [address] OPERATIVE REPORT PATIENT NAME: JOVON LOPEZ : 1995 MED REC NO: [id number] ROOM: 0203 ACCOUNT NO: [id number] ADMIT DATE: 02/12/2021 PROVIDER: Fernando Hooks MD DATE OF PROCEDURE: 02/13/2021 PREOPERATIVE DIAGNOSES: at term, failed induction of labor, and intolerance to labor with late decelerations and brief episodes of bradycardia. SURGICAL PROCEDURE: Primary section, low transverse uterine segment. ANESTHESIA: Spinal. TEST CARRIER: Nahs Mera. ESTIMATED BLOOD LOSS: 800 mL. COMPLICATIONS [...] then a running imbricating interlocking fashion. A [id number] suture was placed on the right lateral [...] good condition. FERNANDO HOOKS MD [id number] Doc#: [id number] CC: Nash Mera [facility] TYPE AND SCREENOrdered By: Rosie Hooks on 02-13-2021 ABO/Rh Positive [facility] Work Phone: Arm Band Number [id number] [facility] Work Phone: Expiration Date 02/16/2021,2353 [facility] Work Phone: [facility] Work Phone: Type + Screenon 02-13-2021 Type + Screen Sample Expiration 02/16/2021,2357 Arm Band Number [id number] ABO/Rh(D) A POSITIVE Antibody Screen NEGATIVE [facility] Comment on above: Performed By: #### T YS #### [facility] [address] [place] [address] Authorization Coordinator: Ilir Prasad MD CBC auto differentialOrdered By: Nash Mera on 02-12-2021 [employer] # 0.11 [employer] [facility] Work Phone: Absolute Immature Granulocyte 0.05 [employer] Work Phone: Absolute Lymph # 1.67 [employer] [facility] Work Phone: Absolute [place] # 0.44 [facility] Work Phone: Basophils (Bld) [#/Vol] 10*3/uL [employer] Work Phone: Basophils/100 WBC (Bld) 0 % 0 - 2 % [employer] Work Phone: Differential Type NOT REPORTED [employer] Phone: Eosinophils/100 WBC (Bld) 1 % 1 - 4 % [employer] Work Phone: Hematocrit (Bld) [Volume fraction] 33.3 % Low 36.3 - 47.1 % [employer] Phone: Hemoglobin.gastrointest inal spec 1 Ql (Stl) 10.7 g/dL Low 11.9 - 15.1 g/dL [employer] Phone: Immature granulocytes/100 WBC (Bld) 1 % High 0 [employer] Work Phone: Interpretation and review of laboratory results Abnormal [employer] Phone: Lymphocytes/100 WBC (Bld) 20 % Low 24 - 43 % [employer] Phone: MCH (RBC) [Entitic mass] 28.5 pg 25.2 - 33.5 pg [employer] Phone: MCHC (RBC) [Mass/Vol] 32.1 g/dL 28.4 - 34.8 g/dL [employer] Phone: MCV (RBC) [Entitic vol] 88.6 fL 82.6 - 102.9 fL [employer] Phone: Monocytes/100 WBC (Bld) 5 % 3 - 12 % [facility] Work Phone: NRBC Automated 0.0 0.0 per 100 WBC [employer] Phone: Platelet distribution width (Bld) [Ratio] 13.9 % 11.8 - 14.4 % [facility] Phone: Platelet Estimate NOT REPORTED [facility] Phone: Platelet mean volume (Bld) [Entitic vol] 11.5 fL 8.1 - 13.5 fL [employer] Phone: Platelets (Bld) [#/Vol] 229 10*3/uL [employer] Phone: RBC (Bld) [#/Vol] 3.76 10*6/uL Low 3.95 - 5.1 1 m/uL [employer] Phone: RBC (Bld) [#/Vol] NOT REPORTED [employer] Phone: Segmented neutrophils/100 WBC (Bld) 73 % High 36 - 65 % [employer] Phone: Segs Absolute 5.99 [employer] Work Phone: WBC (Bld) [#/Vol] 8.3 10*3/uL [employer] Phone: WBC (Bld) [#/Vol] NOT REPORTED [facility] Phone: [employer] Phone: CBC with Diffon 02-12-2021 Abs. Basophil <0.03 Normal 0.00-0.20 [facility] Comment on above: Performed By: #### C DP #### [facility] [address] [place], [facility]83 Authorization Coordinator: Ilir Prasad MD Abs.Imm.Granulocyte 0.05 k/uL Normal 0.00-0.30 [facility] Comment on above: Performed By: #### C DP #### [facility] [address] [place], [place] [id number] Authorization Coordinator: Ilir Prasad MD Abs.Neutrophil (Seg) 5.99 k/uL Normal 1.50-8.10 [facility] Comment on above: Performed By: #### C DP #### [address] [place], [facility]83 Authorization Coordinator: Ilir Prasad MD Basophils/100 WBC (Bld) 0 % Normal 0-2 [facility] Comment on above: Performed By: #### C DP #### [address] [place], [place] [address] Authorization Coordinator: Ilir Prasad MD Eosinophils (Bld) [#/Vol] 0.11 10*3/uL Normal 0.00-0.44 [facility] Comment on above: Performed By: #### C DP #### [address] [place], [facility]83 Authorization Coordinator: Ilir Prasad MD Eosinophils/100 WBC (Bld) 1 % Normal 1-4 [facility] Comment on above: Performed By: #### C DP #### [facility] [address] [place] [address] Dr. [place], [place] [address] Authorization Coordinator: Ilir Prasad MD Erythrocyte distribution width (RBC) [Ratio] 13.9 % Normal 11.8-14.4 [facility] Comment on above: Performed By: #### C DP #### [address] [place], [facility]83 Authorization Coordinator: Ilir Prasad MD Hematocrit (Bld) [Volume fraction] 33.3 % Low 36.3-47.1 [facility] Comment on above: Performed By: #### C DP #### [facility] [address] [place], [place] [id number] Authorization Coordinator: Ilir Prasad MD Hemoglobin (Bld) [Mass/Vol] 10.7 g/dL Low 11.9-15.1 [facility] Comment on above: Performed By: #### C DP #### [facility] [address] [place], [facility]83 Authorization Coordinator: Ilir Prasad MD Immature granulocytes/100 WBC (Bld) 1 % High 0 [facility] Comment on above: Performed By: #### C DP #### [address] [place], [facility]83 Authorization Coordinator: Ilir Prasad MD Lymphocytes (Bld) [#/Vol] 1.67 10*3/uL Normal 1.10-3.70 [facility] Comment on above: Performed By: #### C DP #### [facility] [address] [place] [address] Dr. [place], [facility]83 Authorization Coordinator: Ilir Prasad MD Lymphocytes/100 WBC (Bld) 20 % Low 24-43 [facility] Comment on above: Performed By: #### C DP #### [facility] [address] [place] [address] Dr. [place], [facility]83 Authorization Coordinator: Ilir Prasad MD MCH (RBC) [Entitic mass] 28.5 pg Normal 25.2-33.5 [facility] Comment on above: Performed By: #### C DP #### [facility] [address] [place] [address] Dr. [place] [facility]83 Authorization Coordinator: Ilir Prasad MD MCHC (RBC) [Mass/Vol] 32.1 g/dL Normal 28.4-34.8 [facility] Comment on above: Performed By: #### C DP #### [facility] [address] [place] [address] Dr. [place] [id number] Authorization Coordinator: Ilir Prasad MD MCV (RBC) [Entitic vol] 88.6 fL Normal 82.6-102.9 [facility] Comment on above: Performed By: #### C DP #### [facility] [address] [place], [place] [phone] Authorization Coordinator: Ilir Prasad MD Monocytes (Bld) [#/Vol] 0.44 10*3/uL Normal 0.10-1.20 [facility] Comment on above: Performed By: #### C DP #### [address] [place] [facility]83 Authorization Coordinator: Ilir Prasad MD Monocytes/100 WBC (Bld) 5 % Normal 3-12 M [facility] Comment on above: Performed By: #### C DP #### [address] [place], [facility]83 Authorization Coordinator: Ilir Prasad MD Neutrophil (Seg) 73 % High 36-65 [facility] Comment on above: Performed By: #### C DP #### [address] [place], [place] [id number] Authorization Coordinator: Ilir Prasad MD NRBC Automated 0.0 per 100 WBC Normal 0.0 [facility] Comment on above: Performed By: #### C DP #### [facility] [address] [place] [address] Dr. [place], [facility]83 Authorization Coordinator: Ilir Prasad MD Platelet mean volume (Bld) [Entitic vol] 11.5 fL Normal 8.1-13.5 [facility] Comment on above: Performed By: #### C DP #### [address] [place], [place] [phone] Authorization Coordinator: Ilir Prasad MD Platelets (Bld) [#/Vol] 229 10*3/uL Normal 138-453 [facility] Comment on above: Performed By: #### C DP #### [facility] [address] [place], [place] [id number] Authorization Coordinator: Ilir Prasad MD RBC (Bld) [#/Vol] 3.76 10*6/uL Low 3.95-5.11 [facility] Comment on above: Performed By: #### C DP #### [facility] [address] [place], [place] [id number] Authorization Coordinator: Ilir Prasad MD WBC (Bld) [#/Vol] 8.3 10*3/uL Normal 3.5-11.3 [facility] Comment on above: Performed By: #### C DP #### [address] [place], [place] [id number] Authorization Coordinator: Ilir Prasad MD Auto Diff Performed NOT REPORTED Normal [facility] Comment on above: Performed By: #### C DP #### [facility] [address] [place] [address] Dr[place], [place] [phone] Authorization Coordinator: Ilir Prasad MD Platelet Estimate NOT REPORTED Normal [facility] Comment on above: Performed By: #### C DP #### [address] [place], [place] [id number] Authorization Coordinator: Ilir Prasad MD RBC morphology finding Nom (Bld) NOT REPORTED Normal [facility] Comment on above: Performed By: #### C DP #### [facility] [address] [place] [address] Dr. [place], [place] [id number] Authorization Coordinator: Ilir Prasad MD WBC Morphology NOT REPORTED Normal [facility] Comment on above: Performed By: #### C DP #### [facility] [address] [place] [address] Authorization Coordinator: Ilir Prasad MD DRUG SCREEN MULTI URINEOrder ed By: Nash Mera on 02-12-2021 Amphetamine Screen, Ur Negative NEGATIVE [facility] Work Phone: Barbiturate Screen, Ur Negative NEGATIVE [facility] Work Phone: Benzodiazepine Screen, Urine Negative NEGATIVE [facility] Work Phone: Buprenorphine Urine Negative NEGATIVE [facility] Work Phone: Cannabinoid Scrn, Ur Negative NEGATIVE [facility] Work Phone: Cocaine Metabolite, Urine Negative NEGATIVE [facility] Work Phone: MDMA, Urine NOT REPORTED NEGATIVE [facility] Work Phone: Methadone Screen, Urine Negative NEGATIVE [facility] Work Phone: Methamphetamine, Urine Negative NEGATIVE [facility] Work Phone: Opiates, Urine Negative NEGATIVE [facility] Work Phone: Oxycodone Screen, Ur Negative NEGATIVE [facility] Work Phone: Phencyclidine, Urine Negative NEGATIVE [facility] Work Phone: Propoxyphene, Urine Negative NEGATIVE [facility] Work Phone: Test Information NOT REPORTED [facility] Work Phone: Tricyclic Antidepressants, Urine Negative NEGATIVE [facility] Work Phone: Comment on above: Drug screen results are to be used for medical purposes only. All positive results are unconfirmed. Testing for employment or legal uses should be sent to a reference laboratory for confirmation. [facility] Work Phone: Drug Scr, Abuse, Uron 2020 Amphetamine(s),Ur Negative Normal NEG [facility] Comment on above: Performed By: #### D AU #### [facility] [address] [place] [address] Authorization Coordinator: Ilir Prasad MD Barbiturate(s),Ur Negative Normal NEG [facility] Comment on above: Performed By: #### D AU #### [facility] [address] [place], [place] [phone] Authorization Coordinator: Ilir Prasad MD Benzodiazepine(s) Negative Normal NEG [facility] Comment on above: Performed By: #### D AU #### [facility] [address] [place], [place] [phone] Authorization Coordinator: Ilir Prasad MD Buprenorphrine, Ur Negative Normal NEG [facility] Comment on above: Performed By: #### D AU #### [facility] [address] [place], [place] [id number] Authorization Coordinator: Ilir Prasad MD Cannabinoid(s),Ur Negative Normal [facility] Comment on above: Performed By: #### D AU #### [facility] [address] [place], [place] [id number] Authorization Coordinator: Ilir Prasad MD Cocaine Metabolite Negative Normal [facility] Comment on above: Performed By: #### D AU #### [facility] [address] [place] [address] Authorization Coordinator: Ilir Prasad MD Methadone Ql (U) Negative Normal [facility] Comment on above: Performed By: #### D AU #### [facility] [address] [place] [address] Authorization Coordinator: Ilir Prasad MD Methamphetamine, Ur Negative Normal [facility] Comment on above: Performed By: #### D AU #### [facility] [address] [place], [place] [phone] Authorization Coordinator: Ilir Prasad MD Opiate(s), Ur Negative Normal [facility] Comment on above: Performed By: #### D AU #### [facility] [address] [place], [place] [phone] Authorization Coordinator: Ilir Prasad MD Oxycodone, Urine Negative Normal NEG [facility] Comment on above: Performed By: #### D AU #### [facility] [address] [place], [place] [phone] Authorization Coordinator: Ilir Prasad MD Phencyclidine, Ur Negative Normal NEG [facility] Comment on above: Performed By: #### D AU #### [facility] [address] [place], [place] [id number] Authorization Coordinator: Ilir Prasad MD Propoxyphene,Urine Negative Normal NEG [facility] Comment on above: Performed By: #### D AU #### [facility] [address] [place], [place] [phone] Authorization Coordinator: Ilir Prasad MD Tricyclic antidepressants Screen Ql (U) Negative Normal NEG [facility] Comment on above: Result Comment: Drug screen results are to be used for medical purposes only. All positive results are unconfirmed. Testing for employment or legal uses should be sent to a reference laboratory for confirmation. Performed By: #### D AU #### [facility] [address] [place] [address] Dr. [place], [place] [phone] Authorization Coordinator: Ilir Prasad MD Interpretive Info NOT REPORTED Normal [facility] Comment on above: Performed By: #### D AU #### [facility] [address] [place], [facility] Authorization Coordinator: Ilir Prasad MD MDMA, Urine NOT REPORTED Normal NEG [facility] Comment on above: Performed By: #### D AU #### [facility] [address] [place] [address] Authorization Coordinator: Ilir Prasad MD GBS, External ResultOrdered By: Historical Provider on 01-29-2021 GBS, External Result Negative [facility] Work Phone: [facility] [employer] Work Phone: ABO, External ResultOrdered By: Historical Provider on 08-15-2020 ABO, External Result [employer] Phone: HIV, External ResultOrdered By: Historical Provider on 08-15-2020 HIV, External Result Non-Reactive [employer] Phone: Hepatitis B, External Result Ordered By: Historical Provider on 08-15-2020 Hep B, External Result Negative [employer] Phone: No Panel InformationOrdered By: Historical Provider on 08-15-2020 [employer] Phone: PROFILE IOrdered By : Historical Provider on 08-15-2020 ABO/Rh Positive [employer] Phone: Rh Factor, External ResultOr dered By: Historical Provider on 08-15-2020 Rh Factor, External Result Positive [employer] Phone: Hepatitis C Antibody, [employer] al ResultOrdered By: Historical Provider on 07-26-2020 Hepatitis C Antibody, External Result Negative [employer] Phone: No Panel InformationOrdered By: Historical Provider on 07-26-2020 [employer] Phone: RPR, External LabOrdered By: Historical Provider on 07-26-2020 RPR, External Result Non-Reactive [employer] Phone: Vag Pathogens DNAon 08-22-19 19 Hazel vag DNA Probe Positive Critically abnormal Negative for Gardnerella vaginalis by DNA Probe [facility] Comment on above: Result Comment: This is suggestive, but not diagnostic of bacterial vaginosis, results should be interpreted in conjunction with other data such as pH, amine odor, clue cells and vaginal discharge characteristics. Performed By: #### V AGDNA #### [facility] [address] [place], [place] [address] Protein mass conc Negative Normal Negative f or Lucía species by DNA Probe [facility] Comment on above: Performed By: #### V AGDNA #### [facility] [employer] [address] [place], [place] [address] Trich vag DNA Probe Negative Normal Negative for Trichomonas vaginalis by DNA Probe [facility] Comment on above: Performed By: #### V AGDNA #### [facility] [address] [place], [place] [address] CNOVon 08-20-2018 CNOV Office Visit (AVONGY ) JOVON LOPEZ ([id number]) 1995 F CHT Date Time Provider Department 08/20/18 2:00 PM [facility] (GILMER) GISELLA During your visit today, we recorded the following information about you: Blood pressure Weight Height Last Period 110/70 60.3 kg 1.575 m 07/20/18 Kaycee Horvath MA 08/20/2018 2:17 PM Signed Cell Efficiency Supervisor offered: Patient declines. Brigitte Main APRN.CNP 08/20/2018 [...] external genitalia normal, normal Bartholin's glands, urethra, [place]'s glands, no vulvar lesions, no cervical lesions, good vaginal support, normal appearing perineal body and perianal region, moderate amount yellow discharge noted BIMANUAL: uterus normal size, shape and consistency, no adnexal masses and non-tender RECTOVAGINAL: deferred. 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 Referring Provider: SELF [200] Allergies As of Date: 08/20/2018 Noted Allergy Reaction PENICILLINS 08/20/2018 16 - Unknown Comments: Happened when young.. 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 [50] Cmt: Vaginal pain and discharge [...] test, unconfirmed [Z32.00] Order(s):PAP FLUID CERVICAL SCREENING [4071779] Order #: [id number] VAGINAL PATHOGENS DNA PROBES [SQVAGDNA] Order #: [id number] GC/CHLAMYDIA DNA DET [SQGCCAMP] Order #: [id number] TSH BLD [SQTSH] Order #: [id number] PROLACTIN BLD [SQPROL] Order #: [id number] TESTOSTERONE, FREE AND TOTAL [SQFTESTO] Order #: [id number] HGB A1C [MBULD5Q] Order #: [id number] DHEA-S BLD [SQDHEAS] Order #: [id number] FSH BLD [SQFSH] Order #: [id number] INSERT INTRAUTERINE DEVICE [[id number]] Order #: [id number] HCG QUAL UR B/O [[id number]] Order #: [id number] Prescriptions as of 08/20/2018 Sig: HYDROCODONE 5 MG-ACETAMINOPHE* Take 1 tablet by mouth every * Problem List As Of Date: 08/20/2018 (None) Visit Notes: >> Kaycee Horvath MA ThuAug 20, 2018 2:11 PM Status: Signed Cell Efficiency Supervisor offered: Patient declines. >> Kaycee Horvath MA ThuAug 20, 2018 4:38 PM Status: Signed Negative upt. Encounter Status:Closed by BRIGITTE MAIN CNP on 08/20/18 Normal [facility] CYTOLOGYon 08-20-2018 CYTOLOGY Specimen originated from [facility] Specimen #: [id number] Submitting Physician: BRIGITTE YOUNG CNP SPECIMEN SUBMITTED [...] from every slide are reviewed by a relations liaison. RAYNE Covington(ASCP) (Electronic Signature) ____ CLINICAL DATA ROUTINE EXAM, HPV Testing: Yes, Reflex HPV for ASCUS Date of Last Menstrual Period: 07/20/2018 STAINS A: CERVICAL, SCREENING, FLUID THIN PREP MACHINE MILKER Brigitte Echavarria M.D., [employer] Ambassador Date of Report: 08/25/2018 Date of Procedure: 08/20/2018 Date of Receipt: 08/23/2018 Submitted by: BRIGITTE YOUNG CNP [facility] Diagnostic interpretation performed at [facility], [address] [place] [address]. CLIA Number: [id number] The Pap Smear is a screening test for cervical cancer. False negative results occur with all screening tests, emphasizing the need for rescreening at recommended intervals, and clinical correlation. Normal [facility] GC/Chlamydia Amplifon 2018 Chlamydia Amplif Positive Critically abnormal [facility] Comment on above: Result Comment: In l ow prevalence populations, the likelihood of a false positive may be higher than a true positive. Retesting by another method may be appropriate for patients who lack risk factors or clinical signs and symptoms consistent with infection. Performed By: #### G CCT #### [place] [id number] GC Amplification Negative Normal [facility] Comment on above: Performed By: #### G CCT #### [facility] [address], [place] [id number] GC/Chlam Amp Source Cervix Normal [facility] Comment on above: Performed By: #### G CCT #### [facility] [address] [place] [id number] PROGRESSon 08-20-2018 Protein mass conc HNO ID: [id number] Author: Brigitte Grier ([facility]) O'Young Service: ? Author Type: Nurse Practitioner [...] external genitalia normal, normal Bartholin's glands, urethra, [place]'s glands, no vulvar lesions, no cervical lesions, good vaginal support, normal appearing perineal body and perianal region, moderate amount yellow discharge noted BIMANUAL: uterus normal size, shape and consistency, no adnexal masses and non-tender RECTOVAGINAL: deferred. 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 Breast cancer screening Menorrhagia with irreg [...] for insertion pending ins coverage Brigitte Main, SAEID.TRAVEL COORDINATOR Normal [facility] Vital Signs Date Time Vital Sign Value Performing Clinician Facility 06-30-2023 10:20-0500 Body height 157.48 cm Luis Leung Other [facility] Other 06-30-2023 10:20-0500 Body mass index (BMI) [Ratio] 22.49 kg/m2 Luis Leung Other [facility] Other 06-30-2023 10:20-0500 Body weight 55.79 kg Luis Leung Other [facility] Other 06-30-2023 10:20-0500 Diastolic blood pressure 65 mm[Hg] Luis Leung Other [facility] Other 06-30-2023 10:20-0500 Systolic blood pressure 115 mm[Hg] Luis Leung Other [facility] [employer] Other 05-17-2022 15:15-0500 Diastolic blood pressure 59 mm[Hg] PHYSICIAN NO [facility] 05-17-2022 15:15-0500 Heart rate 67 /min PHYSICIAN NO [facility] 05-17-2022 15:15-0500 Respiratory rate 15 /min PHYSICIAN NO [facility] 05-17-2022 15:15-0500 SaO2% (BldA) [Mass fraction] 99 % PHYSICIAN NO [facility] 05-17-2022 15:15-0500 Systolic blood pressure 111 mm[Hg] PHYSICIAN NO [facility] 05-17-2022 11:45-0500 Body height 160.02 cm PHYSICIAN NO [facility] 05-17-2022 11:45-0500 Body temperature 98 [degF] PHYSICIAN NO [facility] 05-17-2022 11:45-0500 Body weight 58 kg PHYSICIAN NO [facility] 02-15-2021 07:23-0400 Body temperature 98.1 [degF] Nash Boltono WATERMELON HARVESTING SUPERVISOR - CNM Work Phone: [facility] Work Phone: 02-15-2021 07:23-0400 Diastolic blood pressure 59 mm[Hg] Nash Cheo WATERMELON HARVESTING SUPERVISOR - CNM Work Phone: [facility] Work Phone: 02-15-2021 07:23-0400 Heart rate 71 /min Nash Floro WATERMELON HARVESTING SUPERVISOR - CNM Work Phone: [facility] Work Phone: 02-15-2021 07:23-0400 Respiratory rate 16 /min Nash Cheo WATERMELON HARVESTING SUPERVISOR - CNM Work Phone: [facility] Work Phone: 02-15-2021 07:23-0400 Systolic blood pressure 98 mm[Hg] Nash Mera APRN - [employer] Work Phone: [facility] Work Phone: 02-13-2021 20:25-0400 SaO2% (BldA) [Mass fraction] 97 % Nash Mera APRN - [employer] Work Phone: [facility] Work Phone: 02-12-2021 15:50-0400 Body height 157.5 cm Nash Mera APRN - [employer] Work Phone: [facility] Work Phone: 02-12-2021 15:50-0400 Body mass index (BMI) [Ratio] 33.29 kg/m2 Nash Mera APRN - [employer] Work Phone: [facility] Work Phone: 02-12-2021 15:50-0400 Body weight 82.56 kg Nash Mera APRN - [employer] Work Phone: [facility] Work Phone: Encounters Encounter Date Encounter Type [...] 06-30-2023 End: 06-30-2023 ambulatory Luis Leung Other [facility] Other Start: 06-30-2023 Office outpatient visit 15 minutes Luis Leung [facility] Start: 06-30-2023 Telephone encounter Luis Crews [facility] Start: 06-04-2023 End: 06-04-2023 ambulatory NASH L FLORO Not Available Start: 05-14-2023 End: 05-14-2023 ambulatory NASH L FLORO Not Available Start: 04-21-2023 End: 04-21-2023 Emergency department patient visit PHYSICIAN NO FAMILY Facility:[facility] Start: 10-19-2022 End: 10-19-[address] NONE LISTED REQUEST Facility: Start: 05-26-2022 ambulatory Alize Jefferson RN NURS E SHALE PLANER OPERATOR HELPER Comment on above: Muscle Aches Start: 05-24-2022 End: 05-25-2022 Emergency department patient visit IKE HASTINGS Facility:[facility] Start: 05-23-2022 End: 05-23-2022 ambulatory GONZALEZ POWELL [facility] Start: 05-17-2022 End: 05-17-2022 Emergency department patient visit PHYSICIAN NO FAMILY [facility] Start: 05-01-2022 End: 05-01-[address] NONE LISTED REQUEST Facility: Start: 05-01-2021 End: 05-02-2021 ambulatory REFERRED SELF Facility:[facility] Start: 02-12-2021 End: 02-15-2021 Evaluation and management of inpatient NASH MERA [facility] Start: 02-12-2021 End: 02-15-2021 Evaluation and management of inpatient Nash Mera WATERMELON HARVESTING SUPERVISOR - CNM Work Phone: [facility] Comment on above: S/P primary low arredondo sverse (Primary Dx) Start: 08-20-2018 End: 08-23-2018 Patient encounter procedure BRIGITTE BA [facility] Luis Procedures Date Procedure Procedure Detail Performing Clinician Start: 02-14-2021 Blood count hemoglobin Nash Mera WATERMELON HARVESTING SUPERVISOR - CN Work Phone: Start: 02-13-2021 Antibody screen Nash Mera WATERMELON HARVESTING SUPERVISOR - CN Work Phone: Start: 02-13-2021 Blood typing serolog ic abo Fernando Hooks MD Work Phone: Start: 02-12-2021 Blood count complete auto&auto difrntl wbc Nash Mera WATERMELON HARVESTING SUPERVISOR - CN Work Phone: Start: 02-12-2021 [address] class li [address] a Nash Mera WATERMELON HARVESTING SUPERVISOR - CN Work Phone: Start: 01-29-2021 GBS, EXTERNAL RESULT Hi [facility] Provider Start: 08-15-2020 ABO, EXTERNAL RESULT Hi [facility] Provider Start: 08-15-2020 HEPATITIS B, EXTERNA L RESULT Historical Provider Start: 08-15-2020 HIV, EXTERNAL RESULT Hi [facility] Provider Start: 08-15-2020 Obstetric panel Histori [facility] Provider Start: 08-15-2020 RH FACTOR, EXTERNAL RESULT Historical Provider Start: 07-26-2020 HEPATITIS C ANTIBODY , EXTERNAL RESULT Historical Provider Start: 07-26-2020 RPR, EXTERNAL RESULT Hi alban Provider H/O: section S/P primar y low transverse Nash Mera WATERMELON HARVESTING SUPERVISOR - CN Work Phone: H/O: section S/P primar y low transverse Nash Mera WATERMELON HARVESTING SUPERVISOR - CN Work Phone: Plan of Treatment Date Care Activity Detail Author Start: 02-06-2022 Influenza vaccination INFLUENZA (#1) [facility] Start: 08-20-2021 PAP TESTING PAP TESTING [facility] Start: 06-08-2021 DEPRESSION ASSESSMENT DEPRESSION ASS ESSMENT [facility] Start: 02-06-2021 Influenza vaccination Flu vaccine (# 1) [facility] Phone: Start: 2018 Screening for malign ant neoplasm of cervix Pap smear [facility] Phone: Start: 2016 DTaP/Tdap/Td vaccine (1 - Tdap) DTaP/Tdap/Td vaccine (1 - Tdap) [facility] Phone: Start: 2016 Urine microalbumin profile DTAP,TDAP,TD (1 - Tdap) [facility] Start: 2015 HEPATITIS C SCREENING HEPATITIS C [facility] Start: 2015 HIV SCREENING HIV SCREENING [facility] Start: 2013 Screening for Chlamy graham trachomatis Chlamydia screen [facility] [employer] Phone: Start: 2012 HIV screening HIV screen [facility] Work Phone: Start: 2011 PEDS TO ADULT TRANSI TION ANNUAL ASSESSMENT PEDS TO ADULT TRANSITION ANNUAL ASSESSMENT [facility] Start: 2009 COVID-19 Vaccine (1) COVID-19 Vaccin e (1) [employer] Phone: Start: 2009 PEDS TO ADULT TRANSI TION INITIAL DISCUSSION PEDS TO ADULT TRANSITION INITIAL DISCUSSION [facility] Start: 2008 HPV vaccine (1 - 2-d ose series) HPV vaccine (1 - 2-dose series) [facility] Start: 1998 Varicella vaccine (1 of 2 - 2-dose childhood series) Varicella vaccine (1 of 2 - 2-dose childhood series) [facility] [employer] [facility] Phone: Start: 1997 COVID-19 VACCINE (#1) COVID-19 VACCI NE (#1) [facility] Start: 1997 HEPATITIS B (1 of 3 - 3-dose series) HEPATITIS B (1 of 3 - 3-dose series) [facility] Start: 1997 Hepatitis C screening Hepatitis C [facility] Work Phone: Bacteria identified in Urine by Culture [facility] Oxygen therapy [[facility] Data Set] Initiate Oxygen Therapy Protocol Respiratory Care Routine Daily until discontinued starting 02/13/2021 [employer] Phone: Comment on above: Daily until disconti nued starting 02/13/2021 Patient Education Abdominal Pain , Adult ED [facility] Work Phone: Patient referral [facility] Work Phone: Spirometry panel Incentive blanka metry Respiratory Care Routine Every 2hr while awake until discontinued starting 02/13/2021 [employer] Phone: Comment on above: Every 2hr while awak e until discontinued starting 02/13/2021 Immunizations Immunization Date Immunization Notes Care Provider Fa cility 02-13-2021 diphtheria, tetanus toxoids and acellular pertussis vaccine, unspecified formulation Nash [employer] Work Phone: [employer] Phone: 02-13-2021 measles, mumps and rubella virus vaccine [employer] Work Phone: [employer] Phone: Payers Date Payer Category Payer Self-pay 2021 Medicaid [facility] MEDICAID [facility] COMMUNITY PLAN MEDICAID OF [place] [id number] 2021-Present [phone] [address] [place] [address] Medicaid [id number] 1997 Unknown [id number] 2.16.840.1.672552.3.579.2. 173 1997 Unknown [id number] 2.16.840.1.349497.3.579.2. 647 1997 Unknown [id number] 2.16.840.1.175798.3.579.2. 593 1997 Unknown [id number] 2.16.840.1.870768.3.579.2. 593 1997 Unknown [id number] 2.16.840.1.874811.3.579.2. 1258 1997 Unknown [id number] 2.16.840.1.431067.3.579.2. 1258 1997 Unknown [id number] 2.16.840.1.359108.3.579.2. 1258 1997 Unknown [id number] 2.16.840.1.766978.3.579.2. 1258 1997 Unknown [id number] 2.16.840.1.338927.3.579.2. 1258 1997 Unknown [id number] 2.16.840.1.221903.3.579.2. 1258 1997 Unknown [id number] 2.16.840.1.152016.3.579.2. 1258 1997 Unknown [id number] 2.16.840.1.751536.3.579.2. 1258 1997 Unknown [id number] 2.16.840.1.420282.3.579.2. 1258 1997 Unknown [id number] 2.16.840.1.057345.3.579.2. 1258 1997 Unknown [id number] 2.16.840.1.838101.3.579.2. 1258 1997 Unknown [id number] 2.16.840.1.454264.3.579.2. 1258 1997 Unknown [id number] 2.16.840.1.198224.3.579.2. 1258 1997 Unknown [id number] 2.16.840.1.036534.3.579.2. 1258 1997 Unknown [id number] 2.16.840.1.254809.3.579.2. 9 1959 Private Health Insurance [id number] 1.2.840.427632.1.13.239.2. 7.3.542325.315 1959 Unknown [id number] Unknown [id number] 2.16.840.1.746401.3.579.2. 531 Social History Date Type Detail Facility Start: 08-20-2018 End: 02-13-2021 Tobacco smoking status NHIS Never smoker [facility] Start: 08-20-2018 End: 02-13-2021 Tobacco use and exposure Never used [facility] Start: 02-13-2021 Alcohol intake Ex-drinker (finding) [employer] Phone: Start: 1997 Sex Assigned At Not on file M Ble[facility] Report Phone: Exposure to SARS-CoV-2 (event) Not sure [facility] Start: 05-17-2022 Tobacco smoking status WVIS Smoker (finding) [facility] Start: 1997 Sex Assigned At Female F [facility] Start: 05-24-2022 Alcohol intake Current drinke r of alcohol (finding) [facility] Start: 08-20-2018 Tobacco Comment Smokes radhames--smokeless cigs. [facility] Start: 08-20-2018 Alcohol Comment a couple times per month [facility] Sex Assigned At Sex Assigned At Bir th [facility] Other Clinical Notes 02-15-2021 to 06-30-2023 Note Date & Type Note Facility 06-30-2023 Evaluation note Encounter Date Diagnosis Assessment Notes Jun, Diarrhea (ICD-10 - R19.7) Jun, Nausea (ICD-10 - R11.0) Jun, Weight loss (ICD-10 - R63.4) [facility] [employer] Other 12-30-2022 NotePlease notify patient that all of her labs are normal. We will proceed with EGD for further evaluation as planned. She needs to follow up with her PCP or whoever ordered the UA. This was not ordered by us and is abnormal. Please advise patient to follow up with ordering provider.[facility]12-19-2022 Miscellaneous Notes* Telephone Encounter - Alize Jefferson RN - 05/26/2022 10:53 PM EST Reason for Call: pt does not have a current PCP and is having worsening symptoms since seen in ED on 05/24/22 Outcome: Advised to return to ED now, agreeable. [facility] Note Attestation signed by Gonzalez Powell MD at 05/23/2022 7:30 PM I personally saw and examined the patient on the same date of service as resident/fellow . I discussed the findings and therapeutic plan with the resident/fellow . I agree with the documentation, except for any edits/updates below. [facility] Gastroenterology History & Physical CHIEF COMPLAINT Chief Complaint Patient presents with New Patient Fatigue Had gallbladder removed in 03/2021, Dr. Powell found and fixed leak 04/2021, pt is having major problems with eating and drinking. Was referred back in 2020 HISTORY OF PRESENT ILLNESS: Jovon Lopez is a 27 y.o. female with history laparoscopic cholecystectomy on 03/25/2021 at [facility] (in setting of cholecystitis) complicated by biliary leak status post biliary stent on 03/28/2021 and transferred back to [place]. While there, she had worsening abdominal pain [...] cholangiogram. Biliary sphincterotomy was performed. A 10 Slovenian X 9 cm plastic biliary stent was [...] normal bowel sounds, soft, (more content not included)...[facility]11-01-2021 History general Narrative - Reported* Type Description Date Surgical History C section Surgical History cholecystectomy 04/2021 [facility] Other 09-10-2021 History of Present illness Narrative* [...] I did review with her that the job service consultant can review pump usage with [...] - CNM - 02/13/2021 7:35 PM EDT [employer] Tower Climber Note: patient support assistant/director surgical primary section with Dr Hooks Closed SQ layer and also closed skin incision. All edges approximated, no bleeding or drainage noted. heating and cooling technician places sterile dressing over incision. Patient [...] 02/13/2021 5:15 PM EDT Surgery notified that battery repairer and recovery nurse needed for impending . [facility] Phone: [phone]) 308-788709-10-2021 Hospital Discharge instructions* Instructions* Lila Mcintosh RN - 02/15/2021 Follow-up with your OB doctor as specified. [facility] OB Department phone: Dr. Neva YOUM Dr. Brittani Espinoza CN [address] [facility] [address] [facility] [address] [place] Lani Mera, MSN, WATERMELON HARVESTING SUPERVISOR, CNM [address] [address] DIET Eat a well balanced diet focusing on foods high in fiber and protein. Drink plenty of fluids especially water. To avoid constipation you may take a mild stool softener as recommended by your doctor or box order person. ACTIVITY Gradually increase your activity. Resume exercise regimen only after advice by your doctor or box order person. Avoid lifting anything heavier than a gallon of milk for SIX weeks. Avoid driving until your doctor or box order person has given their approval. Rise slowly from [...] medications as recommended by your doctor or box order person for pain If you develop a warm, [...] vitamins as directed by your doctor or box order person. Refer to the booklet in the folder/binder for more information. If you feel you need more assistance or have questions, please call Loreta Reyes IBCLC, job service consultant, at or the OB department [...] area in your calf. documented in this [facility] Phone: [phone]) 704-731309-10-2021 Hospital course Narrative* Kyra Smith APRN - [...] for: HEPBSAG HIV: No results found for: [id number] Results for orders placed or performed during [...] # 1.67 1.10 - 3.70 k/uL Absolute [place] # 0.44 0.10 - 1.20 k/uL Absolute [...] Range Expiration Date 02/16/2021,2359 Arm Band Number [id number] ABO/Rh A POSITIVE Antibody Screen NEGATIVE complications: none Discharge Medication: Jovon Lopez [place] Medication Instructions [place]:[id number] Printed on:02/15/21 1002 Medication Information docusate sodium [...] and post depression check [facility]: evalpdyhmn note* Diagnosis S/P primary low transverse - Primary delivery, without mention of indication, unspecified as to episode of care Encounter for induction of labor Term intolerance to labor, delivered, current hospitalization Abnormality in heart rate/rhythm, delivered, with or without mention of antepartum condition documented in this encounter [facility] Phone: evalzvobha noteNo assessment information available [facility] Work Phone: Evaluation noteNo InformationNort [facility] Other Hospital Discharge instructions Additional Instructions Follow-up with GI doctor provided Return to the ED if develop worsening symptoms or concerns take the new medications as prescribed, use pepto bismol, tums as needed avoid any spicy foods, fatty foods and [facility] Work Phone: Summary Purpose Family [...] section and content) DATE CREATED AUTHOR 08/25/2018 [facility] DATE CREATED AUTHOR AUTHOR'S ORGANIZ ATION 02/16/2021 [facility] DATE CREATED AUTHOR AUTHOR'S ORGANIZ ATION 05/21/2021 [facility] DATE CREATED AUTHOR AUTHOR'S ORGANIZ ATION 05/27/2021 [facility] DATE CREATED AUTHOR AUTHOR'S ORGANIZ ATION 05/30/2022 [facility] DATE CREATED AUTHOR AUTHOR'S ORGANIZ ATION 07/17/2022 [facility] DATE CREATED AUTHOR AUTHOR'S ORGANIZ ATION 10/22/2022 [facility] DATE CREATED AUTHOR AUTHOR'S ORGANIZ ATION 07/17/2023 [facility] DATE CREATED AUTHOR AUTHOR'S ORGANIZ ATION 01/03/2024 [facility] dical Specialists EPIC Reason for Visit (unrecogniz ed section and content) Reason Comments Scheduled Induction Cytotec Induction Status Reason Specialty Diagnoses / Procedures Referre d By Contact Referred To Contact Diagnoses Encounter for induction of labor Term Nash Mera APRN - CNM [address] [place] [address] [facility] Reason Comments Muscle Aches Ordered [...] 50 mL IVPB (COMPLETED) 900 mg, IntraVENous, SHALE PLANER OPERATOR HELPER TO O.R., 1 dose, On Thu02/13/21 at [...] Bobbi Devi RN)1236 (Given - Provider: Claudine Benavidse, HALLE)195 (Given - Provider: Deja Villalobos, HALLE) [...] (Due) 0900 (Due)2100 (Due) 09 (Due)2100 (Due) Dutetee-Xrtdan-Rhkfi Pertussis (BOOSTRIX) injection 0.5 mL 0.5 mL, [...] Claudine Benavides, HALLE)1730 (Rate/Dose Change - Provider: Claudnie Benavides, HALLE) lactated ringers infusion (CANCELED) IntraVENous, at 125 mL/hr, CONTINUOUS, Starting on Thu02/13/21 at 1745, Labor and Delivery (Signed and Held) 1805 (New Bag - Provider: Luther Silvestre APRN - FITTING ROOM MAINTENANCE MECHANIC)1912 (Anesthesia Volume Adjustment - Provider: Luther Silvestre APRN - FITTING ROOM MAINTENANCE MECHANIC) lactated ringers infusion IntraVENous, at 125 mL/hr, [...] every 2-3 minutes with cervical changes or [place] units (MVU) greater than 200 in a [...] Provider: Adela Alvarado RN)1608 (Stopped - Provider: Adeal Alvarado RN)1719 (Held by provider - Provider: [...] Hernandez LPN) 045 (See Alternative - Provider: Inna Joseph RN) [...] Rosario) 212 (Stopped - Provider: Inna L [place], RN - Comment: infusion complete.) sennosides-docusate sodium [...] or prosecute any alcohol or drug abuse patient.[facility] FOR RECORDS PERTAINING TO PATIENTS WHO [...] BE BASED ON THE PRIMARY CLINICAL RECORDS. [facility]. provides no warranty or guarantee of the accuracy or completeness of information in this document.
--- NOTE | 2024-02-04 00:11 | ED_ITS ---
HPI - Abdominal Pain General Chief Complaint: Abdominal Pain Stated Complaint: other Time Seen by Provider: 02/04/24 00:07 Source: patient Mode of arrival: ambulance Limitations: no limitations History of Present Illness HPI narrative: presents complaining of abdominal pain. States started a couple of hours ago. Pain associated with recurrent vomiting. No diarrhea or fever. Related Data Allergies Allergy/AdvReac Type Severity Reaction Status Date / Time morphine Allergy Severe Hives Verified 02/03/24 23:33 Penicillins Allergy Severe Unknown Verified 02/03/24 23:33 Review of Systems ROS Status of ROS 10 or more systems reviewed and unremark able except as noted in history and below [facility] Social History Smoking status: Heavy tobacco smoker Exam Constitutional Vital Signs, click to edit/add: Last Vital Signs Temp 97.7 F 02/03/24 23:29 Pulse 97 H 02/03/24 23:29 Resp 20 02/03/24 23:29 BP 114/81 02/03/24 23:29 Pulse Ox 98 02/03/24 23:29 O2 Del Method Room Air 02/03/24 23:29 Common normals: no apparent distress, average body habitus, oriented x3, no limitations, healthy appearing, alert and well nourished [facility] Common normals: normocephalic and head/scalp atraumatic Eye Common normals: PERRL and EOMs intact bilaterally Respiratory Common normals: normal respiratory effort, no retractions and no use of accessory muscles Cardio Common normals: regular rate, regular rhythm, S1 normal heart sound and S2 normal heart sound GI Palpation: tender Extremity Common normals: normal to inspection and full ROM Neuro Common normals: oriented x3, CN's II-XII intact bilaterally, moves all extremities and no focal motor deficits Psych Appearance: grossly normal Course Vital Signs Vital signs: Vital Signs Temperature 97.7 F 02/03/24 23:29 Pulse Rate 97 H 02/03/24 23:29 Respiratory Rate 20 02/03/24 23:29 Blood Pressure 114/81 02/03/24 23:29 Pulse Oximetry 98 02/03/24 23:29 Oxygen Delivery Method Room Air 02/03/24 23:29 Temperature 97.7 F 02/03/24 23:29 Pulse Rate 97 H 02/03/24 23:29 Respiratory Rate 20 02/03/24 23:29 Blood Pressure 114/81 02/03/24 23:29 Pulse Oximetry 98 02/03/24 23:29 Oxygen Delivery Method Room Air 02/03/24 23:29 MDM - Abdominal Pain MDM Narrative Medical decision making narrative: patient presents with abrupt onset of abdominal pain and vomiting. States by the time she arrived here she was no longer nauseated and pain had improved. exam with mild-mod tenderness periumbilical-no guarding. Labs, IV hydration and CT diagnostic studies ordered. Patient's symptoms improved and she decided she did not want to wait for her results and signed out AMA Lab Data Labs: Lab Results 02/03/24 Range/Units 23:44 WBC 8.1 (4.0-11.0) 10^3/uL RBC 5.29 (4.20-5.40) 10^6/uL Hgb 14.7 (12.0-16.0) g/dL Hct 44.2 (36.0-48.0) % MCV 83.6 (81.0-99.0) fL MCH 27.8 (26.7-34.0) pg MCHC 33.3 (29.9-35.2) g/dL RDW 14.6 (11.0-15.0) % Plt Count 354 (150-450) 10^3/uL MPV 11.1 (9.5-13.5) fL Neut % (Auto) 44.9 (43.0-75.0) % Lymph % (Auto) 45.5 (20.5-60.0) % [place] % (Auto) 5.9 (1.7-12.0) % Eos % (Auto) 3.0 (0.9-7.0) % Baso % (Auto) 0.5 (0.2-2.0) % Neut # (Auto) 3.6 (1.4-6.5) 10^3/uL Lymph # (Auto) 3.7 (1.2-3.8) 10^3/uL [place] # (Auto) 0.5 (0.3-0.8) 10^3/uL Eos # (Auto) 0.2 (0.0-0.7) 10^3/uL Baso # (Auto) 0.0 (0.0-0.1) 10^3/uL Abs Immat Gran (auto) 0.02 (0.00-0.03) 10^3/uL Imm/Tot Granulo (auto) 0.2 (0.0-0.5) % Sodium 136 (136-145) mmol/L Potassium 3.0 L (3.5-5.1) mmol/L Chloride 102 (98-107) mmol/L Carbon Dioxide 20.4 L (21.0-32.0) mmol/L Anion Gap 16.6 BUN 21.0 H (7.0-18.0) mg/dL Creatinine 1.04 H (0.55-1.02) mg/dL Est GFR ( Amer) >60 (>=60) Est GFR (Non-Af Amer) >60 (>=60) BUN/Creatinine Ratio 20.2 Glucose 88 (74-106) mg/dL Lactate 1.8 (0.4-2.0) mmol/L Calcium 9.2 (8.5-10.1) mg/dL Total Bilirubin 0.9 (0.2-1.0) mg/dL AST 25 (15-37) U/L ALT 34 (14-59) U/L Alkaline Phosphatase 85 (46-116) U/L Total Protein 7.1 (6.4-8.2) g/dL Albumin 3.7 (3.4-5.0) g/dL Globulin 3.4 g/dL Albumin/Globulin Ratio 1.1 Lipase 22.0 (16.0-77.0) U/L Imaging Data Abdominal x-ray: Radiologist's impression: ITS Impressions Abdomen/Pelvis CT 02/04/24 00:13 IMPRESSION: 1. Liquid stool throughout the small bowel loops and colon likely represents enteritis and diarrhea. 2. Nonobstructive right renal calculi. 3. Normal appendix. 4. Small amount of free fluid pelvis. Electronically authenticated by: Penny WRIGHT Date: 02/04/2024 01:53 Discharge Plan Discharge Stand Alone Forms: Portal Instructions Chief Complaint: Abdominal Pain Clinical Impression: Abdominal pain Patient Disposition: Left Against Medical Advice Print Language: Greenlandic Referrals: Physician,Non-Staff, MD [Primary Care Provider] - 1 week Discharge Date/Time: 02/04/24 01:56
--- NOTE | 2024-02-04 00:13 | CT_ITS ---
The [address] [address] Patient Name: JOVON LOPEZ MRN: [id number] date: 1995 Sex: F Assigned Patient Location: ER Current Patient Location: ER Accession/Order Number: [id number] Exam Date: 02/04/2024 00:38 Report Date: 02/04/2024 01:53 At the request of: LATOYA HERNANDEZ Procedure: CT abdomen pelvis w con EXAM: CT abdomen pelvis w con HISTORY: abdominal pain COMPARISON: CT abdomen and pelvis examination dated 05/01/2022. TECHNIQUE: Axial CT images through the abdomen and pelvis were obtained after the intravenous administration of contrast with coronal and sagittal reformats. Dose reduction techniques were achieved by using automated exposure control and/or adjustment of mA and/or kV according to patient size and/or use of iterative reconstruction technique. FINDINGS: The visualized portions of the lung bases are clear. There is a small hiatal hernia. Abdomen: The liver and spleen enhance homogeneously without focal lesion. There is no intra or extrahepatic biliary duct dilatation. The gallbladder is surgically absent. There are nonobstructive right renal calculi measuring up to 2 mm. There is a subcentimeter hypodensity in the left kidney that is too small to characterize by CT size criteria. The pancreas, adrenal glands, and the appendix are unremarkable. There is no mesenteric or retroperitoneal lymphadenopathy. Liquid stool is seen throughout the small bowel loops on the majority of the colon. Pelvis: The bladder and rectum are unremarkable. There is no iliac or inguinal lymphadenopathy. The uterus is present. There are multiple small ovarian follicles. The ovaries appear normal in size. There is a small amount of free fluid in the pelvis. A suspected section scar is noted. Bone windows show no aggressive osseous lesions. There is nonspecific sclerosis about the right greater the left sacroiliac joints. CT/CT abdomen pelvis w con IMPRESSION: 1. Liquid stool throughout the small bowel loops and colon likely represents enteritis and diarrhea. 2. Nonobstructive right renal calculi. 3. Normal appendix. 4. Small amount of free fluid pelvis. Electronically authenticated by: Penny WRIGHT Date: 02/04/2024 01:53
[2024-02-04 00:28] LABS: Basophils Percent Auto 0.5 % (0.2-2.0); Eosinophils Absolute Auto 0.2 10^3/uL (0.0-0.7); Hematocrit 44.2 % (36.0-48.0); Hemoglobin 14.7 g/dL (12.0-16.0); Immature Granulocytes Abs Auto 0.02 10^3/uL (0.00-0.03); Immature Granulocytes Pct Auto 0.2 % (0.0-0.5); Lymphocytes Absolute Auto 3.7 10^3/uL (1.2-3.8); Lymphocytes Percent Auto 45.5 % (20.5-60.0); Mean Corpuscular HGB Conc 33.3 g/dL (29.9-35.2); Mean Corpuscular Hemoglobin 27.8 pg (26.7-34.0); Mean Corpuscular Volume 83.6 fL (81.0-99.0); Mean Platelet Volume 11.1 fL (9.5-13.5); Monocytes Absolute Auto 0.5 10^3/uL (0.3-0.8); Monocytes Percent Auto 5.9 % (1.7-12.0); Neutrophils Absolute Auto 3.6 10^3/uL (1.4-6.5); Neutrophils Percent Auto 44.9 % (43.0-75.0); Platelet Count 354 10^3/uL (150-450); Red Blood Count 5.29 10^6/uL (4.20-5.40); Red Cell Distribution Width 14.6 % (11.0-15.0); White Blood Count 8.1 10^3/uL (4.0-11.0)
[2024-02-04] MEDS: 0.9 % SODIUM CHLORIDE 1,000 ML 999 ML IV (00:32)
[2024-02-04 00:45] LABS: Alanine Aminotransferase 34 U/L (14-59); Albumin Globulin Ratio 1.1; Albumin Level 3.7 g/dL (3.4-5.0); Alkaline Phosphatase 85 U/L (46-116); Anion Gap 16.6; Aspartate Amino Transferase 25 U/L (15-37); BUN Creatinine Ratio 20.2; Bilirubin Total 0.9 mg/dL (0.2-1.0); Calcium 9.2 mg/dL (8.5-10.1); Carbon Dioxide 20.4 mmol/L (21.0-32.0); Chloride 102 mmol/L (98-107); Estimated GFR (African America >60 (>=60); Estimated GFR (Non-African Ame >60 (>=60); Globulin 3.4 g/dL; Glucose 88 mg/dL (74-106); Sodium 136 mmol/L (136-145); Total Protein 7.1 g/dL (6.4-8.2)
[2024-02-04 00:48] LABS: Lactate/Lactic Acid 1.8 mmol/L (0.4-2.0)
== END 2024-02-04 01:56 | disposition left against medical advice (07) ==
LOC: ER 23:45
PROVIDERS: Emergency Provider Internal Medicine
DX: R10.9 Unspecified abdominal pain (principal); F17.200 Nicotine dependence, unspecified, uncomplicated; Z53.29 Procedure and treatment not carried out because of patient's decision for other reasons
CPT/HCPCS: 36415; 74177; 80053; 83605; 83690; 85025; 99284; Q9967

== ENCOUNTER 2024-02-05 11:09 | Outpatient (OUT) | payer OTHER, SELFPAY ==
--- OUTSIDE RECORDS SUMMARY | 2024-02-05 11:14 | XMS_ITS | CCD ---
Author Organization [facility] Care Team Providers Care Fishing Guide Name Role Phone BRIGITTE BA Marvel Attending [...] reactions to drug 9 Other (See Comments) Haileo (4 sources) Morphine; Translations: [MORPHINE] Drug Allergy 1 Hives [facility] (2 sources) Penicillin Drug Allergy 0 [facility] (3 sources) Morphine Drug Allergy 2 Hives [facility] (1 source) Penicillins Propensity to adverse reactions to drug 9 Unknown [facility] (1 source) Morphine Drug Allergy 1 [facility] (2 sources) Amoxicillin Drug Allergy [facility] Other (1 source) Amoxicillin Drug Allergy 4 [facility] (1 source) Morphine Drug Allergy 4 [facility] (1 source) Penicillins Drug allergy (disorder) 3 [facility] Medications Current Medications Medication Drug [...] mg docusate sodium 50 mg / sennosides, mcc 8.6 mg oral tablet (1 source) Start: [...] infection (1 source) Acute gastroenteropathy due to [place] agent; Translations: [ACUTE GASTROENTROPATHY NORWALK AGNT] Onset: [...] , with heart rate of 126 bpm. [place]-rump length measures 0.95 cm, yielding an estimated [...] 10,000-100,000 6-8 15,000-200,000 8-12 10,000-100,000 PERFORMED BY: [place] [address] PATHOLOGIST TELEPHONE STATION REPAIRER ARJUN HASTINGS M.D. Performed By: #### H CGQNT #### [place] [address] [place] HCG,Urineon 04-21-2023 Beta HCG ( test) Ql (U) Negative Normal [facility] Comment on above: Order Comment: Name Collection Type:: Clean-Voided Midstream Result Comment: PERF ORMED BY: [place] [address] PATHOLOGIST TELEPHONE STATION REPAIRER ARJUN HASTINGS M.D. Performed By: #### U A, UHCG #### [address] Urinalysison 04-21-2023 Appearance (U) Clear Normal Clear [facility] Comment on above: Order Comment: Name Collection Type:: Clean-Voided Midstream Performed By: #### U A, UHCG #### [place] [address] [place] Bilirubin,Urine Negative Normal Negative [facility] Comment on above: Order Comment: Name Collection Type:: Clean-Voided Midstream Performed By: #### U A, UHCG #### [place] [address] [place] Color (U) Yellow Normal Yellow [facility] Comment on above: Order Comment: Name Collection Type:: Clean-Voided Midstream Performed By: #### U A, UHCG #### [place] [address] [place] Glucose Ql (U) Normal Normal Normal [facility] Comment on above: Order Comment: Name Collection Type:: Clean-Voided Midstream Performed By: #### U A, UHCG #### [facility] [address] [place] [address] Ketones Ql (U) Negative Normal Negative [facility] Comment on above: Order Comment: Name Collection Type:: Clean-Voided Midstream Performed By: #### U A, UHCG #### [address] Leukocyte esterase Test strip Ql (U) Negative Normal Negative [facility] Comment on above: Order Comment: Name Collection Type:: Clean-Voided Midstream Performed By: #### U A, UHCG #### [address] Nitrite,Urine Negative Normal Negative [facility] Comment on above: Order Comment: Name Collection Type:: Clean-Voided Midstream Performed By: #### U A, UHCG #### [address] Occult Blood,Urine Negative Normal Negative [facility] Comment on above: Order Comment: Name Collection Type:: Clean-Voided Midstream Performed By: #### U A, UHCG #### [address] pH (U) 7.5 [pH] Normal 5.0-9.0 [facility] Comment on above: Order Comment: Name Collection Type:: Clean-Voided Midstream Performed By: #### U A, UHCG #### [facility] [address] [place] [address] [place] Protein,Urine Negative Normal Negative [facility] Comment on above: Order Comment: Name Collection Type:: Clean-Voided Midstream Performed By: #### U A, UHCG #### [place] [address] [place] Specificy Gerald,Urine 1.011 Normal 1.001-1.030 [facility] Comment on above: Order Comment: Name Collection Type:: Clean-Voided Midstream Performed By: #### U A, UHCG #### [facility] [address] Urobilinogen,Urine Normal Normal Normal [facility] Comment on above: Order Comment: Name Collection Type:: Clean-Voided Midstream Performed By: #### U A, UHCG #### [facility] [address] AMYLASEon 10-19-2022 Amylase [Catalytic activity/Vol] 42 U/L Normal 25-115 [facility] Comment on above: Performed By: #### L IPA, ROSS, CMP #### [facility] [address] [place] [address] Dr. Radha Garcia CBC AUTO DIFFon 10-19-2022 BASO # 0.0 103/ul Normal 0.0-0.1 [facility] Comment on above: Performed By: #### C BC #### [facility] [address] [place] [address] Dr. Radha Garcia Basophils/100 WBC (Bld) 0.4 % Normal 0.2-2.0 [facility] Comment on above: Performed By: #### C BC #### [facility] [address] [place] [address] Dr. Radha Garcia EO # 0.1 103/ul Normal 0.0-0.7 [facility] Comment on above: Performed By: #### C BC #### [facility] [address] [place] [address] Dr. Radha Garcia Eosinophils/100 WBC (Bld) 2.9 % Normal 0.9-7.0 [facility] Comment on above: Performed By: #### C BC #### [facility] [address] [place] [address] Dr. Radha Garcia Erythrocyte distribution width (RBC) [Ratio] 12.6 % Normal 11.0-15.0 [facility] Comment on above: Performed By: #### C BC #### [facility] [address] [place] [address] Dr. Radha Garcia Hematocrit (Bld) [Volume fraction] 41.9 % Normal 36.0-48.0 [facility] Comment on above: Performed By: #### C BC #### [facility] [address] [place] [address] Dr. Radha Garcia Hemoglobin (Bld) [Mass/Vol] 13.8 g/dL Normal 12.0-16.0 [facility] Comment on above: Performed By: #### C BC #### [facility] [address] [place] [address] Dr. Radha Garcia IG # 0.01 10e3/ul Normal 0.00-0.03 [facility] Comment on above: Performed By: #### C BC #### [facility] [address] [place] [address] Dr. Radha Garcia IG % 0.2 % Normal 0.0-0.5 [facility] Comment on above: Performed By: #### C BC #### [facility] [address] [place] [address] Dr. Radha Garcia LYMPH # 1.2 103/ul Normal 1.2-3.8 [facility] Comment on above: Performed By: #### C BC #### [facility] [address] [place] [address] Dr. Radha Garcia Lymphocytes/100 WBC (Bld) 25.6 % Normal 20.5-60.0 [facility] Comment on above: Performed By: #### C BC #### [facility] [address] [place] [address] Dr. Radha Garcia MANUAL DIFF REQ NO Normal [facility] Comment on above: Performed By: #### C BC #### [facility] [address] [place] [address] Dr. Radha Garcia MCH (RBC) [Entitic mass] 29.9 pg Normal 26.7-34.0 [facility] Comment on above: Performed By: #### C BC #### [facility] [address] [place] [address] Dr. Radha Garcia MCHC (RBC) [Mass/Vol] 32.9 g/dL Normal 29.9-35.2 [facility] Comment on above: Performed By: #### C BC #### [facility] [address] [address] [address] Radha Garcia MCV (RBC) [Entitic vol] 90.9 fL Normal 81.0-99.0 [facility] Comment on above: Performed By: #### C BC #### [facility] [address] [address] [address] Radha Garcia MONO # 0.3 103/ul Normal 0.3-0.8 [facility] Comment on above: Performed By: #### C BC #### [facility] [address] [place] [address] Dr. Radha Garcia Monocytes/100 WBC (Bld) 6.5 % Normal 1.7-12.0 [facility] Comment on above: Performed By: #### C BC #### [facility] [address] [place] [address] Dr. Radha Garcia NEUT # 2.9 103/ul Normal 1.4-6.5 [facility] Comment on above: Performed By: #### C BC #### [facility] [address] [place] [address] Dr. Radha Garcia Neutrophils/100 WBC (Bld) 64.4 % Normal 43.0-75.0 [facility] Comment on above: Performed By: #### C BC #### [facility] [address] [place] [address] Dr. Radha Garcia Platelet mean volume (Bld) [Entitic vol] 10.6 fL Normal 9.5-13.5 [facility] Comment on above: Performed By: #### C BC #### [facility] [address] [place] [address] Dr. Radha Garcia PLT 246 103/ul Normal 150-450 [facility] Comment on above: Performed By: #### C BC #### [facility] [address] [place] [address] Dr. Radha Garcia RBC 4.61 106/ul Normal 4.20-5.40 [facility] Comment on above: Performed By: #### C BC #### [facility] [address] [place] [address] Dr. Radha Garcia WBC 4.5 103/ul Normal 4.0-11.0 [facility] Comment on above: Performed By: #### C BC #### [facility] [address] [place] [address] Dr. Radha Garcia GI PANEL (PCR)on 10-19-2022 Adenovirus F 40/41 Not detected Normal NOT DETECTED [facility] Comment on above: Performed By: #### G IPANEL #### [facility] [address] [place] [address] Dr. Radha Garcia Astrovirus Not detected Normal NOT DETECTED [facility] Comment on above: Performed By: #### G IPANEL #### [facility] [address] [place] [address] Dr. Radha Pike. Diff toxin A/B Not detected Normal NOT DETECTED [facility] Comment on above: Performed By: #### G IPANEL #### [facility] [address] [place] [address] Dr. Radha Garcia Campylobacter Not detected Normal NOT DETECTED [facility] Comment on above: Performed By: #### G IPANEL #### [facility] [address] [place] [address] Dr. Radha Garcia Cryptosporidium Not detected Normal NOT DETECTED [facility] Comment on above: Performed By: #### G IPANEL #### [facility] [address] [place] [address] Dr. Radha Garcia Cyclos. Cayetanensis Not detected Normal NOT DETECTED [facility] Comment on above: Performed By: #### G IPANEL #### [facility] [address] [place] [address] Dr. Radha Garcia E. Coli O157 Not Applicable Normal Not Applicable [facility] Comment on above: Performed By: #### G IPANEL #### [facility] [address] [place] [address] Dr. Radha Garcia E. histolytica Not detected Normal NOT DETECTED [facility] Comment on above: Performed By: #### G IPANEL #### [facility] [address] [place] [address] Dr. Radha Garcia EAEC Not detected Normal NOT DETECTED [facility] Comment on above: Performed By: #### G IPANEL #### [facility] [address] [place] [address] Dr. Radha Garcia EIEC Not detected Normal NOT DETECTED [facility] Comment on above: Performed By: #### G IPANEL #### [facility] [address] [place] [address] Dr. Radha Garcia EPEC Not detected Normal NOT DETECTED [facility] Comment on above: Performed By: #### G IPANEL #### [facility] [address] [place] [address] Dr. Radha Garcia ETEC Not detected Normal NOT DETECTED [facility] Comment on above: Performed By: #### G IPANEL #### [facility] [address] [place] [address] Dr. Radha Valdez Lamblia Not detected Normal NOT DETECTED [facility] Comment on above: Performed By: #### G IPANEL #### [facility] [address] [place] [address] Dr. Radha SANTANA CONTROLS PASSED Normal [facility] Comment on above: Performed By: #### G IPANEL #### [facility] [address] [place] [address] Dr. Radha MALIK [facility] HEADER GI PANEL BACTERIA Normal [facility] Comment on above: Performed By: #### G IPANEL #### [facility] [address] [place] [address] Dr. Radha LOUIS ECOLI GI PANEL DIARRHEAGENIC E.COLI / SHIGELLA Normal [facility] Comment on above: Performed By: #### G IPANEL #### [facility] [address] [place] [address] Dr. Radha LOUIS INFO SEE BELOW Normal [facility] Comment on above: Result Comment: EAEC - Enteroaggregative E. Coli EPEC- Enteropathogenic E. Coli ETEC- Enterotoxigenic E. Coli lt/st STEC- Shigella-like toxin-producing E. Coli stx1/stx2 EIEC- Shigella/Enteroinvasive E. Coli Performed By: #### G IPANEL #### [facility] [address] [place] [address] Dr. Radha LOUIS PARASITES GI PANEL PARASITES Normal [facility] Comment on above: Performed By: #### G IPANEL #### [facility] [address] [address] [address] Radha LOUIS VIRUS GI PANEL VIRUSES Normal [facility] Comment on above: Performed By: #### G IPANEL #### [facility] [address] [place] [address] Dr. Radha Garcia Norovirus GI/GII Detected Abnormal NOT DETECTED [facility] Comment on above: Performed By: #### G IPANEL #### [facility] [address] [place] [address] Dr. Radha Garcia P. Shigelloides Not detected Normal NOT DETECTED [facility] Comment on above: Performed By: #### G IPANEL #### [facility] [address] [place] [address] Dr. Radha Garcia Rotavirus A Not detected Normal NOT DETECTED [facility] Comment on above: Performed By: #### G IPANEL #### [facility] [address] [place] [address] Dr. Radha Garcia Salmonella Not detected Normal NOT DETECTED [facility] Comment on above: Performed By: #### G IPANEL #### [facility] [address] [place] [address] Dr. Radha Garcia Sapovirus Not detected Normal NOT DETECTED [facility] Comment on above: Performed By: #### G IPANEL #### [facility] [address] [place] [address] Dr. Radha Garcia STEC Not detected Normal NOT DETECTED [facility] Comment on above: Performed By: #### G IPANEL #### [facility] [address] [address] [address] Radha Garcia Vibrio Not detected Normal NOT DETECTED [facility] Comment on above: Performed By: #### G IPANEL #### [facility] [address] [place] [address] Dr. Radha Garcia Vibrio Cholera Not detected Normal NOT DETECTED [facility] Comment on above: Performed By: #### G IPANEL #### [facility] [address] [place] [address] Dr. Radha Garcia Y. Enterocolitica Not detected Normal NOT DETECTED [facility] Comment on above: Performed By: #### G IPANEL #### [facility] [address] [place] [address] Dr. Radha Garcia LIPASEon 10-19-2022 Lipase [Catalytic activity/Vol] 54.0 U/L Critically low 73.0-393.0 [facility] Comment on above: Performed By: #### L SAMUEL ROSS, CMP #### [facility] [address] [place] [address] Dr. Radha Garcia PROF 14(COMP METB)on 023 Albumin [Mass/Vol] 3.3 g/dL Critically low 3.4-5.0 [facility] Comment on above: Performed By: #### L ROSS BAKER, CMP #### [facility] [address] [place] [address] Dr. Radha Garcia Albumin/Globulin [Mass ratio] 1.0 {ratio} Normal [facility] Comment on above: Performed By: #### L SAMUEL ROSS, CMP #### [facility] [address] [place] [address] Dr. Radha Garcia ALP [Catalytic activity/Vol] 58 U/L Normal 46-116 [facility] Comment on above: Performed By: #### L IPA ROSS, CMP #### [facility] [address] [place] [address] Dr. Radha Garcia ALT [Catalytic activity/Vol] 25 U/L Normal 14-59 [facility] Comment on above: Performed By: #### L IPA ROSS, CMP #### [facility] [address] [place] [address] Dr. Radha Garcia Anion gap [Moles/Vol] 14.5 mmol/L Normal [facility] Comment on above: Performed By: #### L ROSS BAKER, CMP #### [facility] [address] [place] [address] Dr. Radha Garcia AST [Catalytic activity/Vol] 19 U/L Normal 15-37 [facility] Comment on above: Performed By: #### L ROSS BAKER, CMP #### [facility] [address] [place] [address] Dr. Radha Garcia Bilirubin [Mass/Vol] 0.8 mg/dL Normal 0.2-1.0 [facility] Comment on above: Performed By: #### L ROSS BAKER, CMP #### [facility] [address] [place] [address] Dr. Radha Garcia Calcium [Mass/Vol] 8.4 mg/dL Critically low 8.5-10.1 [facility] Comment on above: Performed By: #### L ROSS BAKER, CMP #### [facility] [address] [place] [address] Dr. Radha Garcia Chloride [Moles/Vol] 107 mmol/L Normal 98-107 [facility] Comment on above: Performed By: #### L ROSS BAKER, CMP #### [facility] [address] [place] [address] Dr. Radha Garcia CO2 [Moles/Vol] 25.8 mmol/L Normal 21.0-32.0 [facility] Comment on above: Performed By: #### L ROSS BAKER, CMP #### [facility] [address] [place] [address] Dr. Radha Garcia Creatinine [Mass/Vol] 0.78 mg/dL Normal 0.55-1.02 [facility] Comment on above: Performed By: #### L ROSS BAKER, CMP #### [facility] [address] [place] [address] Dr. Radha Garcia EGFR-AF CITIZEN [place] >60 Normal >=60 [facility] Comment on above: Performed By: #### L ROSS BAKER, CMP #### [facility] [address] [place] [address] Dr. Radha Garcia EGFR-NON AF CITIZEN OF [place] >60 Normal >=60 [facility] Comment on above: Performed By: #### L ROSS BAKER, CMP #### [facility] [address] [address] [address] Radha Garcia Globulin (S) [Mass/Vol] 3.2 g/dL Normal [facility] Comment on above: Performed By: #### L ROSS BAKER, CMP #### [facility] [address] [address] [address] Radha Garcia Glucose [Mass/Vol] 96 mg/dL Normal 74-106 [facility] Comment on above: Performed By: #### L ROSS BAKER, CMP #### [facility] [address] [address] [address] Radha Garcia Potassium [Moles/Vol] 3.3 mmol/L Critically low 3.5-5.1 [facility] Comment on above: Performed By: #### L ROSS BAKER, CMP #### [facility] [address] [address] [address] Radha Garcia Protein [Mass/Vol] 6.5 g/dL Normal 6.4-8.2 [facility] Comment on above: Performed By: #### L ROSS BAKER, CMP #### [facility] [address] [address] [address] Radha Garcia Sodium [Moles/Vol] 144 mmol/L Normal 136-145 [facility] Comment on above: Performed By: #### L ROSS BAKER, CMP #### [facility] [address] [address] [address] Radha Garcia Urea nitrogen [Mass/Vol] 6.0 mg/dL Critically low 7.0-18.0 [facility] Comment on above: Performed By: #### L ROSS BAKER, CMP #### [facility] [address] [address] [address] Radha Garcia Urea nitrogen/Creatinine [Mass ratio] 7.7 mg/mg Normal [facility] Comment on above: Performed By: #### L ROSS BAKER, CMP #### [facility] [address] [address] [address] Radha Garcia 36on 07-16-2022 36 Attempted to call an d schedule an EGD, but mail box is full unable to leave a message. Will mail her a letter. Normal [facility] 36on 06-06-2022 36 ----- Message from Mary Jo Javier MA sent at 05/26/2022 10:02 AM EST ----- For your review! Normal [facility] BETA HCG, QUANTITATIVE FOR E Don 05-25-2022 HCG.beta subunit Qn m[IU]/mL Normal <5.0 [facility] Comment on above: Order Comment: Speci men Type: BLOOD SPECIMEN Ordering Facility: [facility] Address: [address] [address] Result Comment: Nega tive Performed By: #### 2 4323-8, 3040-3, HCGED, 92979-0 #### [facility] CLIA [id number] [address] [place] CBC W Auto Differential pane l (Bld)on 05-25-2022 Basophils (Bld) [#/Vol] 10*3/uL Normal <0.11 [facility] Comment on above: Order Comment: Speci men Type: BLOOD SPECIMEN Ordering Facility: [facility] Address: [address] [address] Performed By: #### 5 7021-8 #### [facility] CLIA [id number] [address] [place] [address] [place] Basophils/100 WBC (Bld) 0.1 % Normal [facility] Comment on above: Order Comment: Speci men Type: BLOOD SPECIMEN Ordering Facility: [facility] Address: [address] [address] Performed By: #### 5 7021-8 #### [facility] CLIA [id number] [address] [place] [address] [place] Differential cell count method Nom (Bld) Auto Normal [facility] Comment on above: Order Comment: Speci men Type: BLOOD SPECIMEN Ordering Facility: [facility] Address: [address] [address] Performed By: #### 5 7021-8 #### [facility] [facility] [place] [id number] [address] [place] [address] [place] Eosinophils (Bld) [#/Vol] 0.08 10*3/uL Normal <0.46 [facility] Comment on above: Order Comment: Speci men Type: BLOOD SPECIMEN Ordering Facility: [facility] Address: [address] [address] Performed By: #### 5 7021-8 #### [facility] IA [id number] [address] [place] [address] [place] Eosinophils/100 WBC (Bld) 1.0 % Normal [facility] Comment on above: Order Comment: Speci men Type: BLOOD SPECIMEN Ordering Facility: [facility] Address: [address] [address] Performed By: #### 5 7021-8 #### [facility] IA [id number] [address] [place] [address] [place] Erythrocyte distribution width (RBC) [Ratio] 12.4 % Normal 11.5-15.0 [facility] Comment on above: Order Comment: Speci men Type: BLOOD SPECIMEN Ordering Facility: [facility] Address: [address] [address] Performed By: #### 5 7021-8 #### [facility] IA [id number] [address] [place] [address] [place] Hematocrit (Bld) [Volume fraction] 43.0 % Normal 36.0-46.0 [facility] Comment on above: Order Comment: Speci men Type: BLOOD SPECIMEN Ordering Facility: [facility] Address: [address] [address] Performed By: #### 5 7021-8 #### [facility] IA [id number] [address] [place] [address] [place] Hemoglobin (Bld) [Mass/Vol] 14.2 g/dL Normal 11.5-15.5 [facility] Comment on above: Order Comment: Speci men Type: BLOOD SPECIMEN Ordering Facility: [facility] Address: [address] [address] Performed By: #### 5 7021-8 #### [facility] CLIA [id number] [address] [place] [address] [place] Immature granulocytes (Bld) [#/Vol] 10*3/uL Normal <0.10 [facility] Comment on above: Order Comment: Speci men Type: BLOOD SPECIMEN Ordering Facility: [facility] Address: [address] [address] Performed By: #### 5 7021-8 #### [facility] CLIA [id number] [address] [place] [address] [place] Immature granulocytes/100 WBC (Bld) 0.2 % Normal [facility] Comment on above: Order Comment: Speci men Type: BLOOD SPECIMEN Ordering Facility: [facility] Address: [address] [address] Performed By: #### 5 7021-8 #### [facility] CLIA [id number] [address] [place] [address] [place] Lymphocytes (Bld) [#/Vol] 0.30 10*3/uL Low 1.00-4.00 [facility] Comment on above: Order Comment: Speci men Type: BLOOD SPECIMEN Ordering Facility: [facility] Address: [address] [address] Performed By: #### 5 7021-8 #### [facility] CLIA [id number] [address] [place] Lymphocytes/100 WBC (Bld) 3.6 % Normal [facility] Comment on above: Order Comment: Speci men Type: BLOOD SPECIMEN Ordering Facility: [facility] Address: [address] [address] Performed By: #### 5 7021-8 #### [facility] CLIA [id number] [address] [place] MCH (RBC) [Entitic mass] 28.7 pg Normal 26.0-34.0 [facility] Comment on above: Order Comment: Speci men Type: BLOOD SPECIMEN Ordering Facility: [facility] Address: [address] [address] Performed By: #### 5 7021-8 #### [facility] IA [id number] [address] [place] MCHC (RBC) [Mass/Vol] 33.0 g/dL Normal 30.5-36.0 [facility] Comment on above: Order Comment: Speci men Type: BLOOD SPECIMEN Ordering Facility: [facility] Address: [address] [place] [address] Performed By: #### 5 7021-8 #### [facility] [id number] [address] [place] [address] [place] MCV (RBC) [Entitic vol] 86.9 fL Normal 80.0-100.0 [facility] Comment on above: Order Comment: Speci men Type: BLOOD SPECIMEN Ordering Facility: [facility] Address: [address] [place] [address] Performed By: #### 5 7021-8 #### [facility] [id number] [place] [address] [place] Monocytes (Bld) [#/Vol] 0.19 10*3/uL Normal <0.87 [facility] Comment on above: Order Comment: Speci men Type: BLOOD SPECIMEN Ordering Facility: [facility] Address: [address] [address] Performed By: #### 5 7021-8 #### [facility] [id number] [place] [address] Monocytes/100 WBC (Bld) 2.3 % Normal [facility] Comment on above: Order Comment: Speci men Type: BLOOD SPECIMEN Ordering Facility: [facility] Address: [address] Performed By: #### 5 7021-8 #### [facility] IA [id number] [address] [place] [address] [place] Neutrophils (Bld) [#/Vol] 7.62 10*3/uL High 1.45-7.50 [facility] Comment on above: Order Comment: Speci men Type: BLOOD SPECIMEN Ordering Facility: [facility] Address: [address] [address] Performed By: #### 5 7021-8 #### [facility] CLIA [id number] [address] [place] [address] [place] Neutrophils/100 WBC (Bld) 92.8 % Normal [facility] Comment on above: Order Comment: Speci men Type: BLOOD SPECIMEN Ordering Facility: [facility] Address: [address] [address] Performed By: #### 5 7021-8 #### [facility] IA [id number] [address] [place] [address] [place] Nucleated RBC (Bld) [#/Vol] 10*3/uL Normal <0.01 [facility] Comment on above: Order Comment: Speci men Type: BLOOD SPECIMEN Ordering Facility: [facility] Address: [address] [address] Performed By: #### 5 7021-8 #### [facility] IA [id number] [address] [place] [address] [place] Nucleated RBC/100 WBC (Bld) [Ratio] 0.0 /100 WBC Normal [facility] Comment on above: Order Comment: Speci men Type: BLOOD SPECIMEN Ordering Facility: [facility] Address: [address] Performed By: #### 5 7021-8 #### [facility] IA [id number] [address] [place] [address] [place] Platelet mean volume (Bld) [Entitic vol] 10.5 fL Normal 9.0-12.7 [facility] Comment on above: Order Comment: Speci men Type: BLOOD SPECIMEN Ordering Facility: [facility] Address: [address] [address] Performed By: #### 5 7021-8 #### [facility] CLIA [id number] [address] [place] [address] [place] Platelets (Bld) [#/Vol] 264 10*3/uL Normal 150-400 [facility] Comment on above: Order Comment: Speci men Type: BLOOD SPECIMEN Ordering Facility: [facility] Address: [address] [address] Performed By: #### 5 7021-8 #### [facility] CLIA [id number] [address] [place] [address] [place] RBC (Bld) [#/Vol] 4.95 10*6/uL Normal 3.90-5.20 [facility] Comment on above: Order Comment: Speci men Type: BLOOD SPECIMEN Ordering Facility: [facility] Address: [address] Performed By: #### 5 7021-8 #### [facility] CLIA [id number] [address] [place] WBC (Bld) [#/Vol] 8.22 10*3/uL Normal 3.70-11.00 [facility] Comment on above: Order Comment: Speci men Type: BLOOD SPECIMEN Ordering Facility: [facility] Address: [address] Performed By: #### 5 7021-8 #### [facility] CLIA [id number] [id number] [facility] Comprehensive metabolic 2000 panelon 05-25-2022 Albumin [Mass/Vol] 4.3 g/dL Normal 3.9-4.9 [facility] Comment on above: Order Comment: Speci men Type: BLOOD SPECIMEN Ordering Facility: [facility] Address: [address] Performed By: #### 2 4323-8, 3040-3, HCGED, 96929-9 #### [facility] CLIA [id number] [address] [place] [address] [place] ALP [Catalytic activity/Vol] 74 U/L Normal 34-123 [facility] Comment on above: Order Comment: Speci men Type: BLOOD SPECIMEN Ordering Facility: [facility] Address: [address] [place] [address] Performed By: #### 2 4323-8, 3040-3, HCGED, #### [facility] CLIA [id number] [address] [place] [address] [place] ALT [Catalytic activity/Vol] 23 U/L Normal 7-38 [facility] Comment on above: Order Comment: Speci men Type: BLOOD SPECIMEN Ordering Facility: [facility] Address: [address] [place] [address] Performed By: #### 2 4323-8, 3040-3, HCGED, 10531-4 #### [facility] CLIA [id number] [address] [place] [address] [place] Anion gap [Moles/Vol] 12 mmol/L Normal 9-18 [facility] Comment on above: Order Comment: Speci men Type: BLOOD SPECIMEN Ordering Facility: [facility] Address: [address] [place] [address] Performed By: #### 2 4323-8, 3040-3, HCGED, 16666-6 #### [facility] CLIA [id number] [address] [facility] [place] [address] [place] AST [Catalytic activity/Vol] 15 U/L Normal 13-35 [facility] Comment on above: Order Comment: Speci men Type: BLOOD SPECIMEN Ordering Facility: [facility] Address: [address] [place] [address] Performed By: #### 2 4323-8, 3040-3, HCGED, 64156-2 #### [facility] CLIA [id number] [address] [place] [address] [place] Bilirubin [Mass/Vol] 1.0 mg/dL Normal 0.2-1.3 [facility] Comment on above: Order Comment: Speci men Type: BLOOD SPECIMEN Ordering Facility: [facility] Address: [address] [place] [address] Performed By: #### 2 4323-8, 3040-3, HCGED, #### [facility] CLIA [id number] [address] [place] [address] [place] Calcium [Mass/Vol] 8.8 mg/dL Normal 8.5-10.2 [facility] Comment on above: Order Comment: Speci men Type: BLOOD SPECIMEN Ordering Facility: [facility] Address: [address] [place] [address] Performed By: #### 2 4323-8, 3040-3, HCGED, #### [facility] CLIA [id number] [address] [place] [address] [place] Chloride [Moles/Vol] 107 mmol/L High 97-105 [facility] Comment on above: Order Comment: Speci men Type: BLOOD SPECIMEN Ordering Facility: [facility] Address: [address] [place] [address] Performed By: #### 2 4323-8, 3040-3, HCGED, #### [facility] CLIA [id number] [address] [place] [address] [place] CO2 [Moles/Vol] 22 mmol/L Normal 22-30 [facility] Comment on above: Order Comment: Speci men Type: BLOOD SPECIMEN Ordering Facility: [facility] Address: [address] [place] [address] Performed By: #### 2 4323-8, 3040-3, HCGED, #### [facility] CLIA [id number] [address] [place] [address] [place] Creatinine [Mass/Vol] 0.70 mg/dL Normal 0.58-0.96 [facility] Comment on above: Order Comment: Tad vu Type: BLOOD SPECIMEN Ordering Facility: [facility] Address: [address] [id number] Performed By: #### 2 4323-8, 3040-3, HCGED, 95266-8 #### [facility] CLIA [id number] [address] [place] [address] [place] ESTIMATED GLOMERULAR FILTRATION RATE 123 mL/min/1.73m??? Normal >=60 [facility] Comment on above: Order Comment: Tad vu Type: BLOOD SPECIMEN Ordering Facility: [facility] Address: [address] [id number] Result Comment: Hazel mated Glomerular Filtration Rate [...] Performed By: #### 2 4323-8, 3040-3, HCGED, 46686-1 #### [facility] CLIA [id number] [address] [place] [address] [place] Glucose [Mass/Vol] 97 mg/dL Normal 74-99 [facility] Comment on above: Order Comment: Tad vu Type: BLOOD SPECIMEN Ordering Facility: [facility] Address: [address] [place], [place] [phone] Result Comment: The [place] [employer] (ADA) provides guidance for cutoff [...] Standards of Medical Care in Diabetes 2016, [place] [employer]. Diabetes Care. 2016.39(Suppl 1). Performed By: #### 2 4323-8, 3040-3, HCGED, 55885-3 #### [facility] CLIA [id number] [address] [place] [address] [place] Potassium [Moles/Vol] 3.9 mmol/L Normal 3.7-5.1 [facility] Comment on above: Order Comment: Speci men Type: BLOOD SPECIMEN Ordering Facility: [facility] Address: [address] [address] Performed By: #### 2 4323-8, 3040-3, HCGED, 47137-8 #### [facility] CLIA [id number] [address] [place] [address] [place] Protein [Mass/Vol] 6.9 g/dL Normal 6.3-8.0 [facility] Comment on above: Order Comment: Speci men Type: BLOOD SPECIMEN Ordering Facility: [facility] Address: [address] [address] Performed By: #### 2 4323-8, 3040-3, HCGED, 08442-1 #### [facility] CLIA [id number] [address] [place] [address] [place] Sodium [Moles/Vol] 141 mmol/L Normal 136-144 [facility] Comment on above: Order Comment: Speci men Type: BLOOD SPECIMEN Ordering Facility: [facility] Address: [address] [address] Performed By: #### 2 4323-8, 3040-3, HCGED, 05018-2 #### [facility] CLIA [id number] [address] [place] [address] [place] Urea nitrogen [Mass/Vol] 13 mg/dL Normal 7-21 [facility] Comment on above: Order Comment: Speci men Type: BLOOD SPECIMEN Ordering Facility: [facility] Address: [address] [address] Performed By: #### 2 4323-8, 3040-3, HCGED, 52915-5 #### [facility] CLIA [id number] [address] [facility] [place] [address] [facility] ECG COMPLETEon 05-25-2022 ECG COMPLETE Ventricular Rate : 9 1 BPM Atrial Rate : 92 BPM P-R Interval : 150 ms QRS Duration : 85 ms Q-T Interval : 341 ms QTC Calculation(Bazett) : 420 ms Calculated P [place] : 33 degrees Calculated R [place] : 21 degrees Calculated T [place] : 24 degrees Sinus rhythm Low voltage, precordial leads Otherwise Normal ECG *SEE EPIC NOTE FOR INTERPRETATION Confirmed by KHADAR LUNA MD ([id number]), department editor BE TORRES ([id number]) on 05/26/2022 1:50:52 PM NAME : JOVON LOPEZ PID : [id number] : 1995 Gender : Female Race : ORD : [id number] Procedure Date : May 24 2022 23:05:41 Edit Date : May 26 2022 13:50:57 Diagnosis: Sinus rhythm Low voltage, precordial leads Otherwise Normal ECG *SEE EPIC NOTE FOR INTERPRETATION Confirmed by KHADAR LUNA MD ([id number]), department editor BE TORRES ([id number]) on 05/26/2022 1:50:52 PM Test Reason : Chest Pain Location : 302 : ED AVED-16 Overread By : KHADAR LUNA MD Edited By : BE TORRES Referred By : , Acquired by : [id number], [facility] ED NOTEon 05-25-2022 ED NOTE HNO ID: [id number] Author: Diamond Plata RN Service: Nursing Author [...] acute distress. DIAMOND PLATA [facility] [phone] [facility] ED PROV NOTEon 05-25-2022 ED PROV NOTE HNO ID: [id number] Author: Khadar Luna DO Service: Emergency Medicine [...] which was unremarkable. She followed up with tailor garment fitter yesterday, was told that her symptoms may [...] Clinical Impr (more content not included)... Normal [facility] Lipase SerPl-cCncon 05-25-20 Lipase [Catalytic activity/Vol] 15 U/L Low 16-61 [facility] Comment on above: Order Comment: Speci men Type: BLOOD SPECIMEN Ordering Facility: [facility] Address: [address] [place] [address] Performed By: #### 2 4323-8, 3040-3, HCGED, #### [facility] CLIA [id number] [address] [place] [address] [place] Magnesium SerPl-mCncon 05-25 Magnesium [Mass/Vol] 1.9 mg/dL Normal 1.7-2.3 [facility] Comment on above: Order Comment: Speci men Type: BLOOD SPECIMEN Ordering Facility: [facility] Address: [address] [place] [address] Performed By: #### 2 4323-8, 3040-3, [facility], #### [facility] CLIA [id number] [address] [place] [address] [place] Urinalysis complete panel (U )on 05-25-2022 Bilirubin Ql (U) Negative Normal Negative [facility] Comment on above: Order Comment: Speci men Type: URINE SPECIMEN Ordering Facility: [facility] Address: [address] [place] [address] Performed By: #### 2 4356-8 #### [facility] CLIA [id number] [address] [facility] [place] [address] [place] Clarity (Unsp spec) Clear Normal Clear [facility] Comment on above: Order Comment: Speci men Type: URINE SPECIMEN Ordering Facility: [facility] Address: [address] [place] [address] Performed By: #### 2 4356-8 #### [facility] CLIA [id number] [address] [place] [address] [place] Color (U) Yellow Normal Yellow [facility] Comment on above: Order Comment: Speci men Type: URINE SPECIMEN Ordering Facility: [facility] Address: [address] [address] Performed By: #### 2 4356-8 #### [facility] IA [id number] [address] [place] [address] [place] Epithelial cells LM.HPF (Urine sed) [#/Area] Few Normal [facility] Comment on above: Order Comment: Speci men Type: URINE SPECIMEN Ordering Facility: [facility] Address: [address] [address] Performed By: #### 2 4356-8 #### [facility] IA [id number] [address] [place] [address] [place] Glucose Test strip (U) [Mass/Vol] Negative Normal Negative [facility] Comment on above: Order Comment: Speci men Type: URINE SPECIMEN Ordering Facility: [facility] Address: [address] [address] Performed By: #### 2 4356-8 #### [facility] IA [id number] [address] [place] [address] [place] Hemoglobin Ql (U) Negative Normal Negative [facility] Comment on above: Order Comment: Speci men Type: URINE SPECIMEN Ordering Facility: [facility] Address: [address] [address] Performed By: #### 2 4356-8 #### [facility] IA [id number] [address] [place] [address] [place] Ketones Ql (U) 3+ Abnormal Trace, Negative [facility] Comment on above: Order Comment: Speci men Type: URINE SPECIMEN Ordering Facility: [facility] Address: [address] [address] Performed By: #### 2 4356-8 #### [facility] CLIA [id number] [address] [place] [address] [place] Leukocyte esterase Test strip Ql (U) 1+ Abnormal Negative [facility] Comment on above: Order Comment: Speci men Type: URINE SPECIMEN Ordering Facility: [facility] Address: [address] [address] Performed By: #### 2 4356-8 #### [facility] IA [id number] [address] [place] [address] [place] Nitrite Ql (U) Negative Normal Negative [facility] Comment on above: Order Comment: Speci men Type: URINE SPECIMEN Ordering Facility: [facility] Address: [address] [place] [address] Performed By: #### 2 4356-8 #### [facility] IA [id number] [address] [place] [address] [place] pH (U) 5.5 [pH] Normal 5.0-8.0 [facility] Comment on above: Order Comment: Speci men Type: URINE SPECIMEN Ordering Facility: [facility] Address: [address] [place] [address] Performed By: #### 2 4356-8 #### [facility] IA [id number] [address] [place] [address] [place] Protein (U) [Mass/Vol] Trace Normal Trace , Negative [facility] Comment on above: Order Comment: Speci men Type: URINE SPECIMEN Ordering Facility: [facility] Address: [address] [place] [address] Performed By: #### 2 4356-8 #### [facility] IA [id number] [address] [place] [address] [place] RBC LM.HPF (Urine sed) [#/Area] 0-3 /HPF Normal 0-3 /HPF [facility] Comment on above: Order Comment: Speci men Type: URINE SPECIMEN Ordering Facility: [facility] Address: [address] [place] [address] Performed By: #### 2 4356-8 #### [facility] IA [id number] [address] [place] [address] [place] Specific gravity (U) [Rel density] 1.026 Normal 1.005-1.030 [facility] Comment on above: Order Comment: Speci men Type: URINE SPECIMEN Ordering Facility: [facility] Address: [address] [address] Performed By: #### 2 4356-8 #### [facility] CLIA [id number] [address] [place], [place] [address] [place] [address] OF [facility] Urobilinogen Ql (U) 0.2 EU/dL Normal 0.2-1.0 EU/dL [facility] Comment on above: Order Comment: Speci men Type: URINE SPECIMEN Ordering Facility: [facility] Address: [address] [address] Performed By: #### 2 4356-8 #### [facility] CLIA [id number] [place] WBC LM.HPF (Urine sed) [#/Area] 6-10 /HPF Abnormal 0-5 /HPF [facility] Comment on above: Order Comment: Speci men Type: URINE SPECIMEN Ordering Facility: [facility] Address: [address] [place] [address] Performed By: #### 2 4356-8 #### [facility] IA [id number] [address] [place] ED NOTEon 05-24-2022 ED NOTE HNO ID: [id number] Author: Gabby Barone RN Service: ? Author Type: Registered Nurse Type: ED Notes Filed: 05/24/2022 9:23 PM Note Text: Patient presents with nausea, vomiting, diarrhea, and centralized abdominal pain for about 5 months. States she has lost about 45 pounds and is unable to eat or drink without pain. GABBY BARONE [facility] [phone] Normal [facility] Office Visiton 05-23-2022 Follow-up visit [id number] Jovon Lopez 1995 F Date Provider Department Center 05/23/2022 Kevan-GONZALEZ POWELL [facility] No family history on file Level of Service:99601 [place] OFFICE/OUTPATIENT ESTABLISHED MOD MDM 30-39 MIN () Reason for Visit and Comments: New Patient [632] Fatigue [46] - Had gallbladder removed in 03/2021, Dr. Powell found and fixed leak 04/2021, pt is having major problems with eating and drinking. Was referred back in 2020 Normal [facility] Automated erythrocytes count in urine sediment (number/area)Ordered By: Reggie Maynard on 05-17-2022 RBC Auto (Urine sed) [#/Area] 5-9 [HPF] 0-4 [facility] Automated leukocytes count i n urine sediment (number/area)Ordered By: Reggie Maynard on 05-17-2022 WBC Auto (Urine sed) [#/Area] 50-100 [HPF] 0-4 [facility] Basophils Auto (Bld) [#/Vol] Ordered By: Reggie Maynard on 05-17-2022 Basophils (Bld) [#/Vol] 0.1 10*3/uL 0.0-0.2 [facility] Basophils/100 WBC Auto (Bld) Ordered By: Reggie Maynard on 05-17-2022 Basophils/100 WBC (Bld) 0.7 % . F [facility] Bilirubin Test strip Ql (U)O rdered By: Reggie Maynard on 05-17-2022 Bilirubin Ql (U) Negative Negative [facility] Body fluid albumin measureme nt (mass/volume)Ordered By: Reggie Maynard on 05-17-2022 Albumin (Body fld) [Mass/Vol] 3.8 g/dL 3.2-5.5 [facility] Color Auto (U)Ordered By: Hadley Maynard on 05-17-2022 Color (U) Yellow Yellow [facility] Creatinine and Glomerular fi ltration rate.predicted panel (S/P/Bld)Ordered By: Reggie Maynard on 05-17-2022 Creatinine [Mass/Vol] 0.64 mg/dL 0.44-1.03 [facility] Direct bilirubin measurement Ordered By: Reggie Maynard on 05-17-2022 Bilirubin.direct [Mass/Vol] 0.1 mg/dL 0.0-0.4 [facility] Eosinophils Auto (Bld) [#/Vo l]Ordered By: Reggie Maynard on 05-17-2022 Eosinophils (Bld) [#/Vol] 0.3 10*3/uL 0.0-0.45 [facility] Eosinophils/100 WBC Auto (Bl d)Ordered By: Reggie Maynard on 05-17-2022 Eosinophils/100 WBC (Bld) 4.2 % . [facility] Erythrocyte distribution wid th Auto (RBC) [Ratio]Ordered By: Reggie Maynard on 05-17-2022 Erythrocyte distribution width (RBC) [Ratio] 13.0 % 11.9-15.3 [facility] Estimated glomerular filtrat ion rate (GFR) non- AmericanOrdered By: Reggie Maynard on 05-17-2022 GFR/1.73 sq M.predicted among non-blacks MDRD (S/P/Bld) [Vol rate/Area] > 60 mL/Min [facility] Globulin Calc (S) [Mass/Vol] Ordered By: Reggie Maynard on 05-17-2022 Globulin (S) [Mass/Vol] 3.3 g/dL [facility] HCG ( test) IA.rapi d Ql (U)Ordered By: Reggie Maynard on 05-17-2022 HCG ( test) Ql (U) Negative [facility] Hematocrit Auto (Bld) [Volum e fraction]Ordered By: Reggie Maynard on 05-17-2022 Hematocrit (Bld) [Volume fraction] 42.9 % 34.0-46.4 [facility] Hemoglobin [Mass/volume] in BloodOrdered By: Reggie Maynard on 05-17-2022 Hemoglobin (Bld) [Mass/Vol] 14.5 g/dL 11.8-15.4 [facility] Ketones Auto test strip (U) [Mass/Vol]Ordered By: Reggie Maynard on 05-17-2022 Ketones (U) [Mass/Vol] Negative Negative Fi [facility] Laboratory - Chemistry and C hemistry - challengeOrdered By: Reggie Maynard on 05-17-2022 Lipase [Catalytic activity/Vol] 30.0 U/L 22-51 [facility] - UrinalysisOrder ed By: Reggie Maynard on 05-17-2022 Hyaline casts LM Ql (Urine sed) 0-8 [LPF] 0-8 [facility] Leukocytes [#/volume] correc gema for nucleated erythrocytes in Blood by Automated counOrdered By: Reggie Maynard on 05-17-2022 WBC corrected for nucl RBC Auto (Bld) [#/Vol] 7.0 10*3/uL 3.8-11.6 [facility] Lymphocytes Auto (Bld) [#/Vo l]Ordered By: Reggie Maynard on 05-17-2022 Lymphocytes (Bld) [#/Vol] 1.4 10*3/uL 1.00-4.8 [facility] Lymphocytes/100 WBC Auto (Bl d)Ordered By: Reggie Maynard on 05-17-2022 Lymphocytes/100 WBC (Bld) 20.4 % . [facility] MCH Auto (RBC) [Entitic mass ]Ordered By: Reggie Maynard on 05-17-2022 MCH (RBC) [Entitic mass] 29.6 pg 24.7-34.3 [facility] MCHC Auto (RBC) [Mass/Vol]Or dered By: Reggie Maynard on 05-17-2022 MCHC (RBC) [Mass/Vol] 33.7 g/dL 32.0-35.0 [facility] MCV Auto (RBC) [Entitic vol] Ordered By: Reggie Maynard on 05-17-2022 MCV (RBC) [Entitic vol] 87.9 fL 80-100 [facility] Monocyte distribution width [Entitic volume] in Blood by AutomatedOrdered By: Reggie Maynard on 05-17-2022 Monocyte distribution width Auto (Bld) [Entitic vol] 17.93 % 0.00-20.00 [facility] Monocytes Auto (Bld) [#/Vol] Ordered By: Reggie Maynard on 05-17-2022 Monocytes (Bld) [#/Vol] 0.3 10*3/uL 0.0-0.8 [facility] Monocytes/100 WBC Auto (Bld) Ordered By: Reggie Maynard on 05-17-2022 Monocytes/100 WBC (Bld) 4.1 % . [facility] Mucus LM Ql (Urine sed)Order ed By: Reggie Maynard on 05-17-2022 Mucus Ql (Urine sed) 2+ [LPF] [facility] Neutrophils Auto (Bld) [#/Vo l]Ordered By: Reggie Maynard on 05-17-2022 Neutrophils (Bld) [#/Vol] 4.9 10*3/uL 1.8-7.7 [facility] Neutrophils/100 WBC Auto (Bl d)Ordered By: Reggie Maynard on 05-17-2022 Neutrophils/100 WBC (Bld) 70.6 % . [facility] Nitrite Test strip Ql (U)Ord ered By: Reggie Maynard on 05-17-2022 Nitrite Ql (U) Negative Negative [facility] No Panel InformationOrdered By: Reggie Maynard on 05-17-2022 Estimated GFR () > 60 mL/Min [facility] Comment on above: GFR estimated refere nce range: According to KDOQI guidelines, <60 ml/min/1.73m2 is sufficient to diagnose a patient with chronic kidney disease. Pharmacy Creatinine Clearance (Chem 111.16 [facility] Nucleated erythrocytes [Pres ence] in Blood by Automated countOrdered By: Reggie Maynard on 05-17-2022 Nucleated RBC Auto Ql (Bld) 0.2 /100{WBC} 0-0.5 [facility] Platelet mean volume Auto (B ld) [Entitic vol]Ordered By: Reggie Maynard on 05-17-2022 Platelet mean volume (Bld) [Entitic vol] 8.7 fL 6.3-10.7 [facility] Platelets Auto (Bld) [#/Vol] Ordered By: Reggie Maynard on 05-17-2022 Platelets (Bld) [#/Vol] 323 10*3/uL 150-450 [facility] Protein Auto test strip (U) [Mass/Vol]Ordered By: Reggie Maynard on 05-17-2022 Protein (U) [Mass/Vol] Negative Negative Fi [facility] Protein [Mass/volume] in Ser um or PlasmaOrdered By: Reggie Maynard on 05-17-2022 Protein [Mass/Vol] 7.1 g/dL 6.1-7.9 [facility] RBC Auto (Bld) [#/Vol]Ordere d By: Reggie Maynard on 05-17-2022 RBC (Bld) [#/Vol] 4.88 10*6/uL 3.60-5.00 [facility] Serum or plasma alanine rangel otransferase measurement without P-5'-P (enzymatic activiOrdered By: Reggie Maynard on 05-17-2022 ALT No additional P-5'-P [Catalytic activity/Vol] 22 U/L 10-60 [facility] Serum or plasma albumin/glob ulin mass ratioOrdered By: Reggie Maynard on 05-17-2022 Albumin/Globulin [Mass ratio] 1.2 {ratio} [facility] Serum or plasma alkaline ely sphatase measurement (enzymatic activity/volume)Ordered By: Reggie Maynard on 05-17-2022 ALP [Catalytic activity/Vol] 56 U/L 32-92 [facility] Serum or plasma anion gap de terminationOrdered By: Reggie Maynard on 05-17-2022 Anion gap [Moles/Vol] 14.6 mmol/L 6.0-15.0 [facility] Serum or plasma aspartate am inotransferase measurement (enzymatic activity/volume)Ordered By: Reggie Maynard on 05-17-2022 AST [Catalytic activity/Vol] 16 U/L 10-42 [facility] Serum or plasma calcium bryon urement (mass/volume)Ordered By: Reggie Maynard on 05-17-2022 Calcium [Mass/Vol] 8.9 mg/dL 8.2-10.2 [facility] Serum or plasma chloride jamir surement (moles/volume)Ordered By: Reggie Maynard on 05-17-2022 Chloride [Moles/Vol] 106 mmol/L 95-114 [facility] Serum or plasma glucose bryon urement (mass/volume)Ordered By: Reggie Maynard on 05-17-2022 Glucose [Mass/Vol] 94 mg/dL 70-100 [facility] Comment on above: ADA recommended refe rence rangeRandom Glucose Reference Range is dependent on time and content of last meal. Glucose of more than 200 mg/dL in a nonstressed, ambulatory subject supports the diagnosis of Diabetes Mellitus. Serum or plasma non-glucuron idated bilirubin measurement (mass/volume)Ordered By: Reggie Maynard on 05-17-2022 Bilirubin.indirect [Mass/Vol] 0.7 mg/dL [facility] Serum or plasma potassium me asurement (moles/volume)Ordered By: Reggie Maynard on 05-17-2022 Potassium [Moles/Vol] 4.3 mmol/L 3.5-5.1 [facility] Serum or plasma sodium measu rement (moles/volume)Ordered By: Reggie Maynard on 05-17-2022 Sodium [Moles/Vol] 138 mmol/L 136-146 [facility] Serum or plasma total biliru bin measurement (mass/volume)Ordered By: Reggie Maynard on 05-17-2022 Bilirubin [Mass/Vol] 0.8 mg/dL 0.3-1.2 [facility] Serum or plasma total carbon dioxide measurement (moles/volume)Ordered By: Reggie Maynard on 05-17-2022 CO2 [Moles/Vol] 21.7 mmol/L 22.0-30.0 [facility] Serum or plasma urea nitroge n measurement (mass/volume)Ordered By: Reggie Maynard 05-17-2022 Urea nitrogen [Mass/Vol] 15 mg/dL 9-23 [facility] Specific gravity Auto test s trip (U) [Rel density]Ordered By: Reggie Maynard on 05-17-2022 Specific gravity (U) [Rel density] 1.028 1.001-1.030 [facility] Squamous epithelial cells de tection in urine sediment by light microscopyOrdered By: Reggie Maynard on 05-17-2022 Epithelial cells.squamous LM Ql (Urine sed) 3-4 [HPF] 0-2 [facility] Urine bacteria detection by automated methodOrdered By: Reggie Maynard on 05-17-2022 Bacteria Auto Ql (U) None seen None Seen [facility] Urine clarity by refractomet ry automatedOrdered By: Reggie Maynard on 05-17-2022 Clarity Refractometry automated (U) Clear Clear [facility] Urine glucose measurement by automated test strip (mass/volume)Ordered By: Reggie Maynard on 05-17-2022 Glucose Auto test strip (U) [Mass/Vol] Normal mg/dL Normal [facility] Urine hemoglobin detection b y automated test stripOrdered By: Reggie Maynard on 05-17-2022 Hemoglobin Auto test strip Ql (U) Negative Negative [facility] Urine leukocyte esterase det ection by automated test stripOrdered By: Reggie Maynard on 05-17-2022 Leukocyte esterase Auto test strip Ql (U) 3+ Negative [facility] Urine sediment renal epithel ial cell count by microscopy (number/high power field)Ordered By: Reggie Maynard on 05-17-2022 Epithelial cells.renal LM.HPF (Urine sed) [#/Area] None seen [HPF] 0-1 [facility] Urobilinogen Auto test strip (U) [Mass/Vol]Ordered By: Reggie Maynard on 05-17-2022 Urobilinogen (U) [Mass/Vol] Normal mg/dL Normal [facility] WBC Auto (Bld) [#/Vol]Ordere d By: Reggie Maynard on 05-17-2022 WBC (Bld) [#/Vol] 7.0 10*3/uL 3.8-11.6 [facility] pH Auto test strip (U)Ordere d By: Reggie Maynard on 05-17-2022 pH (U) 5.5 [pH] 5.0-9.0 [facility] AMYLASEon 05-01-2022 Amylase [Catalytic activity/Vol] 61 U/L Normal 25-115 [facility] Comment on above: Performed By: #### L IPA, CMP, ROSS #### [facility] [address] [address] [address] Radha Garcia CBC AUTO DIFFon 05-01-2022 BASO # 0.0 103/ul Normal 0.0-0.1 [facility] Comment on above: Performed By: #### C BC #### [facility] [address] [address] [address] Radha Garcia Basophils/100 WBC (Bld) 0.4 % Normal 0.2-2.0 [facility] Comment on above: Performed By: #### C BC #### [facility] [address] [place] [address] Dr. Radha Garcia EO # 0.2 103/ul Normal 0.0-0.7 [facility] Comment on above: Performed By: #### C BC #### [facility] [address] [place] [address] Dr. Radha Garcia Eosinophils/100 WBC (Bld) 3.0 % Normal 0.9-7.0 [facility] Comment on above: Performed By: #### C BC #### [facility] [address] [place] [address] Dr. Radha Garcia Erythrocyte distribution width (RBC) [Ratio] 12.4 % Normal 11.0-15.0 [facility] Comment on above: Performed By: #### C BC #### [facility] [address] [place] [address] Dr. Radha Garcia Hematocrit (Bld) [Volume fraction] 40.5 % Normal 36.0-48.0 [facility] Comment on above: Performed By: #### C BC #### [facility] [address] [place] [address] Dr. Radha Garcia Hemoglobin (Bld) [Mass/Vol] 13.7 g/dL Normal 12.0-16.0 [facility] Comment on above: Performed By: #### C BC #### [facility] [address] [place] [address] Dr. Radha Garcia IG # 0.01 10e3/ul Normal 0.00-0.03 [facility] Comment on above: Performed By: #### C BC #### [facility] [address] [place] [address] Dr. Radha Garcia IG % 0.1 % Normal 0.0-0.5 [facility] Comment on above: Performed By: #### C BC #### [facility] [address] [place] [address] Dr. Radha Garcia LYMPH # 2.1 103/ul Normal 1.2-3.8 [facility] Comment on above: Performed By: #### C BC #### [facility] [address] [place] [address] Dr. Radha Garcia Lymphocytes/100 WBC (Bld) 30.7 % Normal 20.5-60.0 [facility] Comment on above: Performed By: #### C BC #### [facility] [address] [place] [address] Dr. Radha Garcia MANUAL DIFF REQ NO Normal [facility] Comment on above: Performed By: #### C BC #### [facility] [address] [place] [address] Dr. Radha Garcia MCH (RBC) [Entitic mass] 29.9 pg Normal 26.7-34.0 [facility] Comment on above: Performed By: #### C BC #### [facility] [address] [place] [address] Dr. Radha Garcia MCHC (RBC) [Mass/Vol] 33.8 g/dL Normal 29.9-35.2 [facility] Comment on above: Performed By: #### C BC #### [facility] [address] [place] [address] Dr. Radha Garcia MCV (RBC) [Entitic vol] 88.4 fL Normal 81.0-99.0 [facility] Comment on above: Performed By: #### C BC #### [facility] [address] [place] [address] Dr. Radha Garcia MONO # 0.5 103/ul Normal 0.3-0.8 [facility] Comment on above: Performed By: #### C BC #### [facility] [address] [place] [address] Dr. Radha Garcia Monocytes/100 WBC (Bld) 6.6 % Normal 1.7-12.0 [facility] Comment on above: Performed By: #### C BC #### [facility] [address] [place] [address] Dr. Radha Garcia NEUT # 4.1 103/ul Normal 1.4-6.5 [facility] Comment on above: Performed By: #### C BC #### [facility] [address] [place] [address] Dr. Radha Garcia Neutrophils/100 WBC (Bld) 59.2 % Normal 43.0-75.0 [facility] Comment on above: Performed By: #### C BC #### [facility] [address] [place] [address] Dr. Radha Garcia Platelet mean volume (Bld) [Entitic vol] 10.6 fL Normal 9.5-13.5 [facility] Comment on above: Performed By: #### C BC #### [facility] [address] [place] [address] Dr. Radha Garcia PLT 263 103/ul Normal 150-450 [facility] Comment on above: Performed By: #### C BC #### [facility] [address] [place] [address] Dr. Radha Garcia RBC 4.58 106/ul Normal 4.20-5.40 [facility] Comment on above: Performed By: #### C BC #### [facility] [address] [place] [address] Dr. Radha Garcia WBC 6.9 103/ul Normal 4.0-11.0 [facility] Comment on above: Performed By: #### C BC #### [facility] [address] [place] [address] ABD/PELV W CONon [...] by: RAFA KAPLAN Date: 2022-05-01 03:30 Normal [facility] LIPASEon 05-01-2022 Lipase [Catalytic activity/Vol] 63.0 U/L Critically low 73.0-393.0 [facility] Comment on above: Performed By: #### L IPA, CMP, ROSS #### [facility] [address] [address] [address] Radha Garcia PREG HCG QUALon 05-01-2022 , QUAL Negative Normal NEGATIVE [facility] Comment on above: Performed By: #### C BC #### [facility] [address] [address] [address] Radha Garcia PROF 14(COMP METB)on 022 Albumin [Mass/Vol] 3.9 g/dL Normal 3.4-5.0 [facility] Comment on above: Performed By: #### L IPA, CMP, ROSS #### [facility] [address] [address] [address] Radha Garcia Albumin/Globulin [Mass ratio] 1.2 {ratio} Normal [facility] Comment on above: Performed By: #### L IPA, CMP, ROSS #### [facility] [address] [address] [address] Radha Garcia ALP [Catalytic activity/Vol] 73 U/L Normal 46-116 [facility] Comment on above: Performed By: #### L IPA, CMP, ROSS #### [facility] [address] [address] [address] Radha Garcia ALT [Catalytic activity/Vol] 13 U/L Critically low 14-59 [facility] Comment on above: Performed By: #### L IPA, CMP, ROSS #### [facility] [address] [address] [address] Radha Garcia Anion gap [Moles/Vol] 9.0 mmol/L Normal [facility] Comment on above: Performed By: #### L IPA, CMP, ROSS #### [facility] [address] [address] [address] Radha Garcia AST [Catalytic activity/Vol] 12 U/L Critically low 15-37 [facility] Comment on above: Performed By: #### L IPA, CMP, ROSS #### [facility] [address] [address] [address] Radha Garcia Bilirubin [Mass/Vol] 0.6 mg/dL Normal 0.2-1.0 [facility] Comment on above: Performed By: #### L IPA, CMP, ROSS #### [facility] [address] [place] [address] Dr. Radha Garcia Calcium [Mass/Vol] 8.7 mg/dL Normal 8.5-10.1 [facility] Comment on above: Performed By: #### L IPA, CMP, ROSS #### [facility] [address] [place] [address] Dr. Radha Garcia Chloride [Moles/Vol] 106 mmol/L Normal 98-107 [facility] Comment on above: Performed By: #### L IPA, CMP, ROSS #### [facility] [address] [address] [address] Radha Garcia CO2 [Moles/Vol] 26.4 mmol/L Normal 21.0-32.0 [facility] Comment on above: Performed By: #### L IPA, CMP, ROSS #### [facility] [address] [place] [address] Dr. Radha Garcia Creatinine [Mass/Vol] 0.71 mg/dL Normal 0.55-1.02 [facility] Comment on above: Performed By: #### L IPA, CMP, ROSS #### [facility] [address] [place] [address] Dr. Radha Garcia EGFR-AF CITIZEN [place] >60 Normal >=60 [facility] Comment on above: Performed By: #### L IPA, CMP, ROSS #### [facility] [address] [place] [address] Dr. Radha Garcia EGFR-NON AF CITIZEN OF [place] >60 Normal >=60 [facility] Comment on above: Performed By: #### L IPA, CMP, ROSS #### [facility] [address] [address] [address] Radha Garcia Globulin (S) [Mass/Vol] 3.3 g/dL Normal [facility] Comment on above: Performed By: #### L IPA, CMP, ROSS #### [facility] [address] [address] [address] Radha Garcia Glucose [Mass/Vol] 89 mg/dL Normal 74-106 [facility] Comment on above: Performed By: #### L IPA, CMP, ROSS #### [facility] [address] [address] [address] Radha Garcia Potassium [Moles/Vol] 3.4 mmol/L Critically low 3.5-5.1 [facility] Comment on above: Performed By: #### L IPA, CMP, ROSS #### [facility] [address] [place] [address] Dr. Radha Garcia Protein [Mass/Vol] 7.2 g/dL Normal 6.4-8.2 [facility] Comment on above: Performed By: #### L IPA, CMP, ROSS #### [facility] [address] [place] [address] Dr. Radha Garcia Sodium [Moles/Vol] 138 mmol/L Normal 136-145 [facility] Comment on above: Performed By: #### L IPA, CMP, ROSS #### [facility] [address] [place] [address] Dr. Radha Garcia Urea nitrogen [Mass/Vol] 12.0 mg/dL Normal 7.0-18.0 [facility] Comment on above: Performed By: #### L IPA, CMP, ROSS #### [facility] [address] [place] [address] Dr. Radha Garcia Urea nitrogen/Creatinine [Mass ratio] 16.9 mg/mg Normal [facility] Comment on above: Performed By: #### L IPA, CMP, ROSS #### [facility] [address] [place] [address] Dr. Radha Garcia Q - DRUG TOX MONITORING 6 WI TH CONFIRMATION,URINEon 05-23-2021 Amphetamines Negative Normal <500 [facility] Comment on above: Order Comment: [facility] performed at: [employer] [employer] [facility], [address] , [address] [place] [address], [address] [place] [address], Telephone Repairer: Shamar Colunga MD [facility] Date/Time: [facility] Results Received Date/Time: [facility] Reported Date/Time: FASTING: NO Performed By: #### [id number] #### [facility] [address] [place] [address] Barbiturates Negative Normal <300 [facility] Comment on above: Order Comment: [facility] performed at: [employer] [employer] [facility], [address] , [address] [place] [address], [address] [place] [address], Telephone Repairer: Shamar Colunga MD [facility] Date/Time: [facility] Results Received Date/Time: [facility] Reported Date/Time: FASTING: NO Performed By: #### [id number] #### [facility] [address] [place] [address] Benzodiazepines Negative Normal <100 [facility] Comment on above: Order Comment: [facility] performed at: [employer] [employer] [facility], [address] , [address] [place] [address], [address] [place] [address], Telephone Repairer: Shamar Colunga MD [facility] Date/Time: [facility] Results Received Date/Time: [facility] Reported Date/Time: FASTING: NO Performed By: #### [id number] #### [facility] [address] [place] [address] Cocaine Metabolite Negative Normal <150 [facility] Comment on above: Order Comment: [facility] performed at: [employer] [facility], [address] , [address] [place] [address], [address] [place] [address], Telephone Repairer: Shamar Colunga MD [facility] Date/Time: [facility] Results Received Date/Time: [facility] Reported Date/Time: FASTING: NO Performed By: #### [id number] #### [facility] [address] [place] [address] COMMENT SEE NOTE Normal [facility] Comment on above: Order Comment: [facility] performed at: [employer] [employer] [facility], [address] [facility], [address] [place] [address], [address] [place] [address], Telephone Repairer: Shamar Colunga MD [facility] Date/Time: [facility] Results Received Date/Time: [facility] Reported Date/Time: FASTING: NO Result Comment: See Note 2 Note 1 This test was developed and its analytical performance characteristics have been determined by [employer]. It has not been cleared or approved [...] interpreting these drug results, please contact a [employer] Toxicology Specialist: [phone] ( [phone] M-F, 8am-6pm EST. Performed By: #### [id number] #### [facility] [address] [place] [address] Marijuana Metabolite 73 ng/mL High <5 [facility] Comment on above: Order Comment: [facility] performed at: [employer] [employer] [facility], [address] , [address] [place] [address], [id number], Telephone Repairer: Shamar Colunga MD [facility] Date/Time: [id number] [facility] Received Date/Time: [facility] Reported Date/Time: FASTING: NO Result Comment: See Note 1 Performed By: #### [id number] #### [facility] [address] [place] [address] Marijuana Metabolite 20 Positive Abnormal <20 N [facility] Comment on above: Order Comment: [facility] Testing performed at: [employer], [employer] [facility], [address] [facility], [address] [place] [address], [address] [place] [address], Telephone Repairer: Shamar Colunga MD [facility] Collection Date/Time: [facility] Results Received Date/Time: [facility] Reported Date/Time: FASTING: NO Performed By: #### 9 [id number] #### [facility] Default [address] [place] [address] Methadone Metabolite Negative Normal <100 [facility] Specialist Comment on above: Order Comment: [facility] Testing performed at: [employer], [employer] [facility], [address] [facility], [address] [place] [address], [phone], Telephone Repairer: Shamar Colunga MD [facility] Collection Date/Time: [facility] Results Received Date/Time: [facility] Reported Date/Time: FASTING: NO Performed By: #### 9 1486 #### [facility] Default [address] [place] [address] Opiates Negative Normal <100 [facility] Specialist Comment on above: Order Comment: [facility] Testing performed at: [facility], [employer] [facility], [address] [facility], [address] [place] [address], [phone], Telephone Repairer: Shamar Colunga MD [facility] Collection Date/Time: [facility] Results Received Date/Time: [facility] Reported Date/Time: FASTING: NO Performed By: #### 9 1486 #### [facility] Default [address] [place] [address] Oxycodone Negative Normal <100 [facility] Specialist Comment on above: Order Comment: [facility] Testing performed at: [employer], [employer] [facility], [address] [facility], [address] [place] [address], [phone], Telephone Repairer: Shamar Colunga MD [facility] Collection Date/Time: [id number] [facility] Results Received Date/Time: [id number] [facility] Reported Date/Time: FASTING: NO Performed By: #### 9 1486 #### [facility] Default [address] [place] [address] Phencyclidine Negative Normal <25 [facility] Comment on above: Order Comment: [facility] Testing performed at: [facility], [facility], [address] [place] [address], [address] [place] [address], [phone], Telephone Repairer: Shamar Colunga MD [facility] Collection Date/Time: [id number] [facility] Results Received Date/Time: [facility] Reported Date/Time: FASTING: NO Performed By: #### 9 1486 #### [facility] Default [address] [place] [address] ERCPon 05-01-2021 ERCP [facility] Department of Radiology [address] [place] [phone] Patient Name: JOVON LOPEZ : 1995 [...] procedure. Electronically signed: Neris Guevara. Transcribed by: [email or web address], User Resident: Electronically Signed by: NERIS GUEVARA @ 05/03/2021 08:12 AM Normal [facility] Comment on above: Order Comment: Evalu ate Endoscopy Reporton Endoscopy Report MR#: [id number] [facility] Pt. Name: Jovon Lopez Surgery Date: 05/01/2021 Room #: 7A Date of : 1995 PROCEDURE NOTE ATTENDING: Gonzalez Powell M.D. ADJUNCT SPANISH INSTRUCTOR: Te Bacon MD. (Advanced Endoscopy Gastroenterology Fellow). [...] Bacon MD Date Trans: 05/01/2021 06:34 P/sandra [id number] Normal [facility] POC SARS COV2 ANTIGEN NEGATI VEon 05-01-2021 POC SARS COV2 ANTIGEN NEG Negative Normal NEGATIVE [facility] Comment on above: Result Comment: Nega [...] signs and symptoms consistent with COVID-19. The [employer] COVID-19 Ag Card is a lateral flow [...] Accreditation. Performed By: #### 3 1977 #### [facility] [address] [facility]. [address] POC URINE PREGNANCYon 2020 Beta HCG ( test) Ql (U) Negative Normal NEGATIVE [facility] Comment on above: Result Comment: Perf ormed in PACU Performed By: #### 8 [id number] #### [facility] [address] [facility]. [place], [place] [id number] [place] [address] Hemoglobinon 02-14-2021 Hemoglobin (Bld) [Mass/Vol] 11.4 g/dL Low 11.9-15.1 [facility] Comment on above: Performed By: #### H GB #### [address] [place] [address] Natural Sciences Professor: Ilir Prasad MD HemoglobinOrdered By: Cherelle Mear on 02-14-2021 Hemoglobin.gastrointest inal spec 1 Ql (Stl) 11.4 g/dL Low 11.9 - 15.1 g/dL [facility] [employer] Phone: Interpretation and review of laboratory results Abnormal [facility] Phone: [facility] Phone: OPERATIVE REPORTon 1 OPERATIVE REPORT [address] [phone] OPERATIVE REPORT PATIENT NAME: JOVON LOPEZ : 1995 MED REC NO: [id number] ROOM: 0203 ACCOUNT NO: [id number] ADMIT DATE: 02/12/2021 PROVIDER: Fernando Hooks MD DATE OF PROCEDURE: 02/13/2021 PREOPERATIVE DIAGNOSES: at term, failed induction of labor, and intolerance to labor with late decelerations and brief episodes of bradycardia. SURGICAL PROCEDURE: Primary section, low transverse uterine segment. ANESTHESIA: Spinal. GROWTH HACKER: Nash Mera. ESTIMATED BLOOD LOSS: 800 mL. [...] then a running imbricating interlocking fashion. A alumnf-wf-bliag suture was placed on the right lateral [...] good condition. FERNANDO HOOKS MD [id number] Doc#: [id number] CC: Nash Mera [facility] TYPE AND SCREENOrdered By: Rosie Hooks on 02-13-2021 ABO/Rh Positive [facility] Work Phone: Arm Band Number [id number] [facility] Work Phone: Expiration Date 02/16/2021,2353 [facility] Work Phone: [facility] Work Phone: Type + Screenon 02-13-2021 Type + Screen Sample Expiration 02/16/2021,2355 Arm Band Number [id number] ABO/Rh(D) A POSITIVE Antibody Screen NEGATIVE [facility] Comment on above: Performed By: #### T YS #### [facility] [address] [place] [address] Natural Sciences Professor: Ilir Prasad MD CBC auto differentialOrdered By: Nash Mera on 02-12-2021 Absolute Eos # 0.11 [facility] Work Phone: Absolute Immature Granulocyte 0.05 [employer] Work Phone: Absolute Lymph # 1.67 [employer] Work Phone: Absolute Bee # 0.44 [facility] Work Phone: Basophils (Bld) [#/Vol] 10*3/uL M [employer] Work Phone: Basophils/100 WBC (Bld) 0 % 0 - 2 % [employer] Work Phone: Differential Type NOT REPORTED [employer] Phone: Eosinophils/100 WBC (Bld) 1 % 1 - 4 % [employer] Work Phone: Hematocrit (Bld) [Volume fraction] 33.3 % Low 36.3 - 47.1 % [employer] Phone: Hemoglobin.gastrointest inal spec 1 Ql (Stl) 10.7 g/dL Low 11.9 - 15.1 g/dL [employer] Phone: Immature granulocytes/100 WBC (Bld) 1 % High 0 [employer] Work Phone: Interpretation and review of laboratory results Abnormal [employer] Phone: Lymphocytes/100 WBC (Bld) 20 % Low 24 - 43 % [employer] Phone: MCH (RBC) [Entitic mass] 28.5 pg 25.2 - 33.5 pg [employer] Phone: MCHC (RBC) [Mass/Vol] 32.1 g/dL 28.4 - 34.8 g/dL [employer] Phone: MCV (RBC) [Entitic vol] 88.6 fL 82.6 - 102.9 fL [employer] Phone: Monocytes/100 WBC (Bld) 5 % 3 - 12 % [facility] Work Phone: NRBC Automated 0.0 0.0 per 100 WBC [employer] Phone: Platelet distribution width (Bld) [Ratio] 13.9 % 11.8 - 14.4 % [facility] Phone: Platelet Estimate NOT REPORTED [facility] Phone: Platelet mean volume (Bld) [Entitic vol] 11.5 fL 8.1 - 13.5 fL [employer] Phone: Platelets (Bld) [#/Vol] 229 10*3/uL [employer] Phone: RBC (Bld) [#/Vol] 3.76 10*6/uL Low 3.95 - 5.1 1 m/uL [employer] Phone: RBC (Bld) [#/Vol] NOT REPORTED [employer] Phone: Segmented neutrophils/100 WBC (Bld) 73 % High 36 - 65 % [employer] Phone: Segs Absolute 5.99 [employer] Work Phone: WBC (Bld) [#/Vol] 8.3 10*3/uL [employer] Phone: WBC (Bld) [#/Vol] NOT REPORTED [facility] Phone: [employer] Phone: CBC with Diffon 02-12-2021 Abs. Basophil <0.03 Normal 0.00-0.20 [facility] Comment on above: Performed By: #### C DP #### [facility] [address] [place], [facility]83 Natural Sciences Professor: Ilir Prasad MD Abs.Imm.Granulocyte 0.05 k/uL Normal 0.00-0.30 [facility] Comment on above: Performed By: #### C DP #### [facility] [address] [place], [place] [id number] Natural Sciences Professor: Ilir Prasad MD Abs.Neutrophil (Seg) 5.99 k/uL Normal 1.50-8.10 [facility] Comment on above: Performed By: #### C DP #### [address] [place], [facility]83 Natural Sciences Professor: Ilir Prasad MD Basophils/100 WBC (Bld) 0 % Normal 0-2 [facility] Comment on above: Performed By: #### C DP #### [address] [place], [place] [address] Natural Sciences Professor: Ilir Prasad MD Eosinophils (Bld) [#/Vol] 0.11 10*3/uL Normal 0.00-0.44 [facility] Comment on above: Performed By: #### C DP #### [address] [place], [facility]83 Natural Sciences Professor: Ilir Prasad MD Eosinophils/100 WBC (Bld) 1 % Normal 1-4 [facility] Comment on above: Performed By: #### C DP #### [facility] [address] [place] [address] Dr. [place], [place] [address] Natural Sciences Professor: Ilir Prasad MD Erythrocyte distribution width (RBC) [Ratio] 13.9 % Normal 11.8-14.4 [facility] Comment on above: Performed By: #### C DP #### [address] [place], [facility]83 Natural Sciences Professor: Ilir Prasad MD Hematocrit (Bld) [Volume fraction] 33.3 % Low 36.3-47.1 [facility] Comment on above: Performed By: #### C DP #### [facility] [address] [place], [place] [phone] Natural Sciences Professor: Ilir Prasad MD Hemoglobin (Bld) [Mass/Vol] 10.7 g/dL Low 11.9-15.1 [facility] Comment on above: Performed By: #### C DP #### [facility] [address] [place], [facility]83 Natural Sciences Professor: Ilir Prasad MD Immature granulocytes/100 WBC (Bld) 1 % High 0 [facility] Comment on above: Performed By: #### C DP #### [address] [place], [facility]83 Natural Sciences Professor: Ilir Prasad MD Lymphocytes (Bld) [#/Vol] 1.67 10*3/uL Normal 1.10-3.70 [facility] Comment on above: Performed By: #### C DP #### [facility] [address] [place] [address] Dr. [place], [facility]83 Natural Sciences Professor: Ilir Prasad MD Lymphocytes/100 WBC (Bld) 20 % Low 24-43 [facility] Comment on above: Performed By: #### C DP #### [facility] [address] [place] [address] Dr. [place], [facility]83 Natural Sciences Professor: Ilir Prasad MD MCH (RBC) [Entitic mass] 28.5 pg Normal 25.2-33.5 [facility] Comment on above: Performed By: #### C DP #### [facility] [address] [place] [address] Dr. [place] [facility]83 Natural Sciences Professor: Ilir Prasad MD MCHC (RBC) [Mass/Vol] 32.1 g/dL Normal 28.4-34.8 [facility] Comment on above: Performed By: #### C DP #### [facility] [address] [place] [address] Dr. [place] [phone] Natural Sciences Professor: Ilir Prasad MD MCV (RBC) [Entitic vol] 88.6 fL Normal 82.6-102.9 [facility] Comment on above: Performed By: #### C DP #### [facility] [address] [place], [place] [phone] Natural Sciences Professor: Ilir Prasad MD Monocytes (Bld) [#/Vol] 0.44 10*3/uL Normal 0.10-1.20 [facility] Comment on above: Performed By: #### C DP #### [address] [place] [facility]83 Natural Sciences Professor: Ilir Prasad MD Monocytes/100 WBC (Bld) 5 % Normal 3-12 [facility] Comment on above: Performed By: #### C DP #### [address] [place], [facility]83 Natural Sciences Professor: Ilir Prasad MD Neutrophil (Seg) 73 % High 36-65 [facility] Comment on above: Performed By: #### C DP #### [address] [place], [place] [id number] Natural Sciences Professor: Ilir Prasad MD NRBC Automated 0.0 per 100 WBC Normal 0.0 [facility] Comment on above: Performed By: #### C DP #### [facility] [address] [place] [address] Dr. [place], [facility]83 Natural Sciences Professor: Ilir Prasad MD Platelet mean volume (Bld) [Entitic vol] 11.5 fL Normal 8.1-13.5 [facility] Comment on above: Performed By: #### C DP #### [address] [place], [place] [id number] Natural Sciences Professor: Ilir Prasad MD Platelets (Bld) [#/Vol] 229 10*3/uL Normal 138-453 [facility] Comment on above: Performed By: #### C DP #### [facility] [address] [place], [place] 2376283 Natural Sciences Professor: Ilir Prasad MD RBC (Bld) [#/Vol] 3.76 10*6/uL Low 3.95-5.11 [facility] Comment on above: Performed By: #### C DP #### [facility] [address] [place], [place] [phone] Natural Sciences Professor: Ilir Prasad MD WBC (Bld) [#/Vol] 8.3 10*3/uL Normal 3.5-11.3 [facility] Comment on above: Performed By: #### C DP #### [address] [place], [place] [address]83 Natural Sciences Professor: Ilir Prasad MD Auto Diff Performed NOT REPORTED Normal [facility] Comment on above: Performed By: #### C DP #### [facility] [address] [place] [address] Dr. [place], [place] [phone] Natural Sciences Professor: Ilir Prasad MD Platelet Estimate NOT REPORTED Normal [facility] Comment on above: Performed By: #### C DP #### [address] [place], [place] [id number] Natural Sciences Professor: Ilir Prasad MD RBC morphology finding Nom (Bld) NOT REPORTED Normal [facility] Comment on above: Performed By: #### C DP #### [facility] [address] [place] [address] Dr. [place], [place] [phone] Natural Sciences Professor: Ilir Prasad MD WBC Morphology NOT REPORTED Normal [facility] Comment on above: Performed By: #### C DP #### [facility] [address] [place] [address] Natural Sciences Professor: Ilir Prasad MD DRUG SCREEN MULTI URINEOrder ed By: Nash Mera on 02-12-2021 Amphetamine Screen, Ur Negative NEGATIVE [facility] Work Phone: Barbiturate Screen, Ur Negative NEGATIVE [facility] Work Phone: Benzodiazepine Screen, Urine Negative NEGATIVE [facility] Work Phone: Buprenorphine Urine Negative NEGATIVE [facility] Work Phone: Cannabinoid Scrn, Ur Negative NEGATIVE [facility] Work Phone: Cocaine Metabolite, Urine Negative NEGATIVE [facility] Work Phone: MDMA, Urine NOT REPORTED NEGATIVE [facility] Work Phone: Methadone Screen, Urine Negative NEGATIVE [facility] Work Phone: Methamphetamine, Urine Negative NEGATIVE [facility] Work Phone: Opiates, Urine Negative NEGATIVE [facility] Work Phone: Oxycodone Screen, Ur Negative NEGATIVE [facility] Work Phone: Phencyclidine, Urine Negative NEGATIVE [facility] Work Phone: Propoxyphene, Urine Negative NEGATIVE [facility] Work Phone: Test Information NOT REPORTED [facility] Work Phone: Tricyclic Antidepressants, Urine Negative NEGATIVE [facility] Work Phone: Comment on above: Drug screen results are to be used for medical purposes only. All positive results are unconfirmed. Testing for employment or legal uses should be sent to a reference laboratory for confirmation. [facility] Work Phone: Drug Scr, Abuse, Uron 2020 Amphetamine(s),Ur Negative Normal NEG [facility] Comment on above: Performed By: #### D AU #### [facility] [address] [place] [address] Natural Sciences Professor: Ilir Prasad MD Barbiturate(s),Ur Negative Normal NEG [facility] Comment on above: Performed By: #### D AU #### [facility] [address] [place], [place] [phone] Natural Sciences Professor: Ilir Prasad MD Benzodiazepine(s) Negative Normal NEG [facility] Comment on above: Performed By: #### D AU #### [facility] [address] [place], [place] [phone] Natural Sciences Professor: Ilir Prasad MD Buprenorphrine, Ur Negative Normal NEG [facility] Comment on above: Performed By: #### D AU #### [facility] [address] [place], [place] [phone] Natural Sciences Professor: Ilir Prasad MD Cannabinoid(s),Ur Negative Normal [facility] Comment on above: Performed By: #### D AU #### [facility] [address] [place], [place] [phone] Natural Sciences Professor: Ilir Prasad MD Cocaine Metabolite Negative Normal [facility] Comment on above: Performed By: #### D AU #### [facility] [address] [place] [address] Natural Sciences Professor: Ilir Prasad MD Methadone Ql (U) Negative Normal [facility] Comment on above: Performed By: #### D AU #### [facility] [address] [place] [address] Natural Sciences Professor: Ilir Prasad MD Methamphetamine, Ur Negative Normal [facility] Comment on above: Performed By: #### D AU #### [facility] [address] [place], [place] [phone] Natural Sciences Professor: Ilir Prasad MD Opiate(s), Ur Negative Normal [facility] Comment on above: Performed By: #### D AU #### [facility] [address] [place], [place] 2285483 Natural Sciences Professor: Ilir Prasad MD Oxycodone, Urine Negative Normal NEG [facility] Comment on above: Performed By: #### D AU #### [facility] [address] [place], [place] [phone] Natural Sciences Professor: Ilir Prasad MD Phencyclidine, Ur Negative Normal NEG [facility] Comment on above: Performed By: #### D AU #### [facility] [address] [place], [place] [phone] Natural Sciences Professor: Ilir Prasad MD Propoxyphene,Urine Negative Normal NEG [facility] Comment on above: Performed By: #### D AU #### [facility] [address] [place], [place] 5167383 Natural Sciences Professor: Ilir Prasad MD Tricyclic antidepressants Screen Ql (U) Negative Normal NEG [facility] Comment on above: Result Comment: Drug screen results are to be used for medical purposes only. All positive results are unconfirmed. Testing for employment or legal uses should be sent to a reference laboratory for confirmation. Performed By: #### D AU #### [facility] [address] [place] [address] Dr. [place], [place] [phone] Natural Sciences Professor: Ilir Prasad MD Interpretive Info NOT REPORTED Normal [facility] Comment on above: Performed By: #### D AU #### [facility] [address] [place], [facility]83 Natural Sciences Professor: Ilir Prasad MD MDMA, Urine NOT REPORTED Normal NEG [facility] Comment on above: Performed By: #### D AU #### [facility] [address] [place] [address] Natural Sciences Professor: Ilir Prasad MD GBS, External ResultOrdered By: Historical Provider on 01-29-2021 GBS, External Result Negative [facility] Work Phone: [facility] Work Study Work Phone: ABO, External ResultOrdered By: Historical Provider on 08-15-2020 ABO, External Result [employer] Phone: HIV, External ResultOrdered By: Historical Provider on 08-15-2020 HIV, External Result Non-Reactive [employer] Phone: Hepatitis B, External Result Ordered By: Historical Provider on 08-15-2020 Hep B, External Result Negative [employer] Phone: No Panel InformationOrdered By: Historical Provider on 08-15-2020 [employer] Phone: PROFILE IOrdered By : Historical Provider on 08-15-2020 ABO/Rh Positive [employer] Phone: Rh Factor, External ResultOr dered By: Historical Provider on 08-15-2020 Rh Factor, External Result Positive [employer] Phone: Hepatitis C Antibody, Electrical Systems Design Engineer al ResultOrdered By: Historical Provider on 07-26-2020 Hepatitis C Antibody, External Result Negative [employer] Phone: No Panel InformationOrdered By: Historical Provider on 07-26-2020 [employer] Phone: RPR, External LabOrdered By: Historical Provider on 07-26-2020 RPR, External Result Non-Reactive [employer] Phone: Vag Pathogens DNAon 08-22-19 19 Hazel vag DNA Probe Positive Critically abnormal Negative for Gardnerella vaginalis by DNA Probe [facility] Comment on above: Result Comment: This is suggestive, but not diagnostic of bacterial vaginosis, results should be interpreted in conjunction with other data such as pH, amine odor, clue cells and vaginal discharge characteristics. Performed By: #### V AGDNA #### [facility] [employer] [address] [place], [place] [address] Protein mass conc Negative Normal Negative f or Lucía species by DNA Probe [facility] Comment on above: Performed By: #### V AGDNA #### [facility] [employer] [place], [place] [address] Trich vag DNA Probe Negative Normal Negative for Trichomonas vaginalis by DNA Probe [facility] Comment on above: Performed By: #### V AGDNA #### [facility] [employer] [address] [place], [place] [address] CNOVon 08-20-2018 CNOV Office Visit (AVONGY ) JOVON LOPEZ ([id number]) 1995 F CHT Date Time Provider Department 08/20/18 2:00 PM [facility] (GILMER) GISELLA During your visit today, we recorded the following information about you: Blood pressure Weight Height Last Period 110/70 60.3 kg 1.575 m 07/20/18 Kaycee Horvath MA 08/20/2018 2:17 PM Signed Command Center Analyst offered: Patient declines. Brigitte Main APRN.CNP 08/20/2018 [...] external genitalia normal, normal Bartholin's glands, urethra, [place]'s glands, no vulvar lesions, no cervical lesions, good vaginal support, normal appearing perineal body and perianal region, moderate amount yellow discharge noted BIMANUAL: uterus normal size, shape and consistency, no adnexal masses and non-tender RECTOVAGINAL: deferred. NEURO: alert and oriented x3 and alert and oriented x3,exam grossly non-focal EXTREMITIES: normal ASSESSMENT: Normal COMPUTER SYSTEMS CONSULTANT exam Breast cancer screening Menorrhagia with irreg [...] for insertion pending ins coverage Brigitte Main, SENIOR SOFTWARE ARCHITECT.GILMER Horvath MA 08/20/2018 4:39 PM Signed Negative upt. Referring Provider: SELF [200] Allergies As of Date: 08/20/2018 Noted Allergy Reaction PENICILLINS 08/20/2018 16 - Unknown Comments: Happened when young.. 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: Model Maker Plaster Exam [50] Cmt: Vaginal pain and discharge [...] test, unconfirmed [Z32.00] Order(s):PAP FLUID CERVICAL SCREENING [5866071] Order #: [id number] VAGINAL PATHOGENS DNA PROBES [SQVAGDNA] Order #: [id number] GC/CHLAMYDIA DNA DET [SQGCCAMP] Order #: [id number] TSH BLD [SQTSH] Order #: [id number] PROLACTIN BLD [SQPROL] Order #: [id number] TESTOSTERONE, FREE AND TOTAL [SQFTESTO] Order #: [id number] HGB A1C [XTFCS2N] Order #: [id number] DHEA-S BLD [SQDHEAS] Order #: [id number] FSH BLD [SQFSH] Order #: [id number] INSERT INTRAUTERINE DEVICE [[id number]] Order #: [id number] HCG QUAL UR B/O [[id number]] Order #: [id number] Prescriptions as of 08/20/2018 Sig: HYDROCODONE 5 MG-ACETAMINOPHE* Take 1 tablet by mouth every * Problem List As Of Date: 08/20/2018 (None) Visit Notes: >> Kaycee Horvath MA ThuAug 20, 2018 2:11 PM Status: Signed Command Center Analyst offered: Patient declines. >> Kaycee Horvath MA ThuAug 20, 2018 4:38 PM Status: Signed Negative upt. Encounter Status:Closed by BRIGITTE MAIN CNP on 08/20/18 Normal [facility] CYTOLOGYon 08-20-2018 CYTOLOGY Specimen originated from [facility] Specimen #: [id number] Submitting Physician: BRIGITTE YOUNG CNP SPECIMEN SUBMITTED [...] from every slide are reviewed by a chief service observer. RAYNE Covington(ASCP) (Electronic Signature) ____ CLINICAL DATA ROUTINE EXAM, HPV Testing: Yes, Reflex HPV for ASCUS Date of Last Menstrual Period: 07/20/2018 STAINS A: CERVICAL, SCREENING, FLUID THIN PREP COMPUTER SYSTEMS CONSULTANT Brigitte Echavarria M.D., Aircraft [employer] Date of Report: 08/25/2018 Date of Procedure: 08/20/2018 Date of Receipt: 08/23/2018 Submitted by: BRIGITTE YOUNG CNP Location: [facility] Diagnostic interpretation performed at [facility], [address] [place] [address]. CLIA Number: [id number] The Pap Smear is a screening test for cervical cancer. False negative results occur with all screening tests, emphasizing the need for rescreening at recommended intervals, and clinical correlation. Normal [facility] GC/Chlamydia Amplifon 2018 Chlamydia Amplif Positive Critically abnormal [facility] Comment on above: Result Comment: In l ow prevalence populations, the likelihood of a false positive may be higher than a true positive. Retesting by another method may be appropriate for patients who lack risk factors or clinical signs and symptoms consistent with infection. Performed By: #### G CCT #### [place] [id number] GC Amplification Negative Normal [facility] Comment on above: Performed By: #### G CCT #### [facility] [address], [place] [id number] GC/Chlam Amp Source Cervix Normal [facility] Comment on above: Performed By: #### G CCT #### [facility] [address] [place] [id number] PROGRESSon 08-20-2018 Protein mass conc HNO ID: [id number] Author: Brigitte Grier ([facility]) O'Young Service: ? Author Type: Nurse [...] external genitalia normal, normal Bartholin's glands, urethra, [place]'s glands, no vulvar lesions, no cervical lesions, good vaginal support, normal appearing perineal body and perianal region, moderate amount yellow discharge noted BIMANUAL: uterus normal size, shape and consistency, no adnexal masses and non-tender RECTOVAGINAL: deferred. NEURO: alert and oriented x3 and alert and oriented x3,exam grossly non-focal EXTREMITIES: normal ASSESSMENT: Normal COMPUTER SYSTEMS CONSULTANT exam Breast cancer screening Menorrhagia with irreg [...] for insertion pending ins coverage Brigitte Main, SAEID.PARTS SALES COUNTERPERSON Normal [facility] Vital Signs Date Time Vital Sign Value Performing Clinician Facility 06-30-2023 10:20-0500 Body height 157.48 cm Luis Leung Other [facility] Other 06-30-2023 10:20-0500 Body mass index (BMI) [Ratio] 22.49 kg/m2 Luis Leung Other [facility] Other 06-30-2023 10:20-0500 Body weight 55.79 kg Luis Leung Other [facility] Other 06-30-2023 10:20-0500 Diastolic blood pressure 65 mm[Hg] Luis Leung Other [facility] Other 06-30-2023 10:20-0500 Systolic blood pressure 115 mm[Hg] Luis Leung Other [facility] Other 05-17-2022 15:15-0500 Diastolic blood pressure 59 mm[Hg] PHYSICIAN NO [facility] 05-17-2022 15:15-0500 Heart rate 67 /min PHYSICIAN NO [facility] 05-17-2022 15:15-0500 Respiratory rate 15 /min PHYSICIAN NO [facility] 05-17-2022 15:15-0500 SaO2% (BldA) [Mass fraction] 99 % PHYSICIAN NO [facility] 05-17-2022 15:15-0500 Systolic blood pressure 111 mm[Hg] PHYSICIAN NO [facility] 05-17-2022 11:45-0500 Body height 160.02 cm PHYSICIAN NO [facility] 05-17-2022 11:45-0500 Body temperature 98 [degF] PHYSICIAN NO [facility] 05-17-2022 11:45-0500 Body weight 58 kg PHYSICIAN NO [facility] 02-15-2021 07:23-0400 Body temperature 98.1 [degF] Nash Boltono SENIOR SOFTWARE ARCHITECT - CNM Work Phone: [facility] Work Phone: 02-15-2021 07:23-0400 Diastolic blood pressure 59 mm[Hg] Nash Cheo SENIOR SOFTWARE ARCHITECT - CNM Work Phone: [facility] Work Phone: 02-15-2021 07:23-0400 Heart rate 71 /min Nash Floro SENIOR SOFTWARE ARCHITECT - CNM Work Phone: [facility] Work Phone: 02-15-2021 07:23-0400 Respiratory rate 16 /min Nash Cheo SENIOR SOFTWARE ARCHITECT - CNM Work Phone: [facility] Work Phone: 02-15-2021 07:23-0400 Systolic blood pressure 98 mm[Hg] Nash Mera APRN - [employer] Work Phone: [facility] Work Phone: 02-13-2021 20:25-0400 SaO2% (BldA) [Mass fraction] 97 % Nash Mera APRN - [employer] Work Phone: [facility] Work Phone: 02-12-2021 15:50-0400 Body height 157.5 cm Nash Mera APRN - [employer] Work Phone: [facility] Work Phone: 02-12-2021 15:50-0400 Body mass index (BMI) [Ratio] 33.29 kg/m2 Nash Mera APRN - [employer] Work Phone: [facility] Work Phone: 02-12-2021 15:50-0400 Body weight 82.56 kg Nash Mera APRN - [employer] Work Phone: [facility] Work Phone: Encounters Encounter Date Encounter Type [...] 06-30-2023 End: 06-30-2023 ambulatory Luis Leung Other [facility] Other Start: 06-30-2023 Office outpatient visit 15 minutes Luis Leung [facility] Start: 06-30-2023 Telephone encounter Luis Crews [facility] Start: 06-04-2023 End: 06-04-2023 ambulatory NASH L FLORO Not Available Start: 05-14-2023 End: 05-14-2023 ambulatory NASH L FLORO Not Available Start: 04-21-2023 End: 04-21-2023 Emergency department patient visit PHYSICIAN NO FAMILY Facility:[facility] Start: 10-19-2022 End: 10-19-[address] NONE LISTED REQUEST Facility: Start: 05-26-2022 ambulatory Alize Jefferson RN NURS E COMMUNITY OUTREACH COORDINATOR Comment on above: Muscle Aches Start: 05-24-2022 End: 05-25-2022 Emergency department patient visit IKE HASTINGS Facility:[facility] Start: 05-23-2022 End: 05-23-2022 ambulatory GONZALEZ POWELL [facility] Start: 05-17-2022 End: 05-17-2022 Emergency department patient visit PHYSICIAN NO FAMILY [facility] Start: 05-01-2022 End: 05-01-[address] NONE LISTED REQUEST Facility: Start: 05-01-2021 End: 05-02-2021 ambulatory REFERRED SELF Facility:[facility] Start: 02-12-2021 End: 02-15-2021 Evaluation and management of inpatient NASH MERA [facility] Start: 02-12-2021 End: 02-15-2021 Evaluation and management of inpatient Nash Mera SENIOR SOFTWARE ARCHITECT - CNM Work Phone: [facility] Comment on above: S/P primary low arredondo sverse (Primary Dx) Start: 08-20-2018 End: 08-23-2018 Patient encounter procedure BRIGITTE BA [facility] Luis Procedures Date Procedure Procedure Detail Performing Clinician Start: 02-14-2021 Blood count hemoglobin Nash Mera SENIOR SOFTWARE ARCHITECT - CN Work Phone: Start: 02-13-2021 Antibody screen Nash Mera SENIOR SOFTWARE ARCHITECT - CN Work Phone: Start: 02-13-2021 Blood typing serolog ic abo Fernando Hooks MD Work Phone: Start: 02-12-2021 Blood count complete auto&auto difrntl wbc Nash Mera SENIOR SOFTWARE ARCHITECT - CN Work Phone: Start: 02-12-2021 [address] class li st a Nash Mera SENIOR SOFTWARE ARCHITECT - CN Work Phone: Start: 01-29-2021 GBS, EXTERNAL RESULT Hi [facility] Provider Start: 08-15-2020 ABO, EXTERNAL RESULT Hi [facility] Provider Start: 08-15-2020 HEPATITIS B, EXTERNA L RESULT Historical Provider Start: 08-15-2020 HIV, EXTERNAL RESULT Hi [facility] Provider Start: 08-15-2020 Obstetric panel Histori [facility] Provider Start: 08-15-2020 RH FACTOR, EXTERNAL RESULT Historical Provider Start: 07-26-2020 HEPATITIS C ANTIBODY , EXTERNAL RESULT Historical Provider Start: 07-26-2020 RPR, EXTERNAL RESULT Hi [facility]ban Provider H/O: section S/P primar y low transverse Nash Mera SENIOR SOFTWARE ARCHITECT - CN Work Phone: H/O: section S/P primar y low transverse Nash Mera SENIOR SOFTWARE ARCHITECT - CN Work Phone: Plan of Treatment Date Care Activity Detail Author Start: 02-06-2022 Influenza vaccination INFLUENZA (#1) [facility] Start: 08-20-2021 PAP TESTING PAP TESTING [facility] Start: 06-08-2021 DEPRESSION ASSESSMENT DEPRESSION ASS ESSMENT [facility] Start: 02-06-2021 Influenza vaccination [facility]: Start: 2018 Screening for malign ant neoplasm of cervix Pap smear [facility] Phone: Start: 2016 DTaP/Tdap/Td vaccine (1 - Tdap) DTaP/Tdap/Td vaccine (1 - Tdap) [facility] Phone: Start: 2016 Urine microalbumin profile DTAP,TDAP,TD (1 - Tdap) [facility] Start: 2015 HEPATITIS C SCREENING HEPATITIS C [facility] Start: 2015 HIV SCREENING HIV SCREENING [facility] Start: 2013 Screening for Chlamy graham trachomatis Chlamydia screen [facility] [employer] Phone: Start: 2012 HIV screening HIV screen [facility] Work Phone: Start: 2011 PEDS TO ADULT TRANSI TION ANNUAL ASSESSMENT PEDS TO ADULT TRANSITION ANNUAL ASSESSMENT [facility] Start: 2009 COVID-19 Vaccine (1) COVID-19 Vaccin e (1) [employer] Phone: Start: 2009 PEDS TO ADULT TRANSI TION INITIAL DISCUSSION PEDS TO ADULT TRANSITION INITIAL DISCUSSION [facility] Start: 2008 HPV vaccine (1 - 2-d ose series) HPV vaccine (1 - 2-dose series) [facility] Start: 1998 Varicella vaccine (1 of 2 - 2-dose childhood series) Varicella vaccine (1 of 2 - 2-dose childhood series) [facility] [employer] [facility] Phone: Start: 1997 COVID-19 VACCINE (#1) COVID-19 VACCI NE (#1) [facility] Start: 1997 HEPATITIS B (1 of 3 - 3-dose series) HEPATITIS B (1 of 3 - 3-dose series) [facility] Start: 1997 Hepatitis C screening Hepatitis C [facility] Work Phone: Bacteria identified in Urine by Culture [facility] Oxygen therapy [[facility] Data Set] Initiate Oxygen Therapy Protocol Respiratory Care Routine Daily until discontinued starting 02/13/2021 [employer] Phone: Comment on above: Daily until disconti nued starting 02/13/2021 Patient Education Abdominal Pain , Adult ED [facility] Work Phone: Patient referral [facility] Work Phone: Spirometry panel Incentive blanka metry Respiratory Care Routine Every 2hr while awake until discontinued starting 02/13/2021 [employer] Phone: Comment on above: Every 2hr while awak e until discontinued starting 02/13/2021 Immunizations Immunization Date Immunization Notes Care Provider Fa cility 02-13-2021 diphtheria, tetanus toxoids and acellular pertussis vaccine, unspecified formulation Nash Dataguise Work Phone: [employer] Phone: 02-13-2021 measles, mumps and rubella virus vaccine [employer]er [employer] Work Phone: [employer] Phone: Payers Date Payer Category Payer Self-pay 2021 Medicaid [facility] [employer] MEDICAID OF [place] [id number] 2021-Present [phone] [address] [place] [address] Medicaid [id number] 1997 Unknown [id number] 2.16.840.1.980424.3.579.2. 173 1997 Unknown [id number] 2.16.840.1.364396.3.579.2. 647 1997 Unknown [id number] 2.16.840.1.221826.3.579.2. 593 1997 Unknown [id number] 2.16.840.1.324149.3.579.2. 593 1997 Unknown [id number] 2.16.840.1.529642.3.579.2. 1258 1997 Unknown [id number] 2.16.840.1.836627.3.579.2. 1258 1997 Unknown [id number] 2.16.840.1.832095.3.579.2. 1258 1997 Unknown [id number] 2.16.840.1.287697.3.579.2. 1258 1997 Unknown [id number] 2.16.840.1.363901.3.579.2. 1258 1997 Unknown [id number] 2.16.840.1.043977.3.579.2. 1258 1997 Unknown [id number] 2.16.840.1.714916.3.579.2. 1258 1997 Unknown [id number] 2.16.840.1.708664.3.579.2. 1258 1997 Unknown [id number] 2.16.840.1.236811.3.579.2. 1258 1997 Unknown [id number] 2.16.840.1.218808.3.579.2. 1258 1997 Unknown [id number] 2.16.840.1.028499.3.579.2. 1258 1997 Unknown [id number] 2.16.840.1.757034.3.579.2. 1258 1997 Unknown [id number] 2.16.840.1.768190.3.579.2. 1258 1997 Unknown [id number] 2.16.840.1.494740.3.579.2. 1258 1997 Unknown [id number] 2.16.840.1.694983.3.579.2. 9 1959 Private Health Insurance [id number] 1.2.840.450986.1.13.239.2. 7.3.248475.315 1959 Unknown [id number] Unknown [id number] 2.16.840.1.014817.3.579.2. 531 Social History Date Type Detail Facility Start: 08-20-2018 End: 02-13-2021 Tobacco smoking status NHIS Never smoker [facility] Start: 08-20-2018 End: 02-13-2021 Tobacco use and exposure Never used [facility] Start: 02-13-2021 Alcohol intake Ex-drinker (finding) [employer] Phone: Start: 1997 Sex Assigned At Not on file M [facility] Phone: Exposure to SARS-CoV-2 (event) Not sure [facility] Start: 05-17-2022 Tobacco smoking status NDIS Smoker (finding) [facility] Start: 1997 Sex Assigned At Female F [facility] Start: 05-24-2022 Alcohol intake Current drinke r of alcohol (finding) [facility] Start: 08-20-2018 Tobacco Comment Smokes radhames--smokeless cigs. [facility] Start: 08-20-2018 Alcohol Comment a couple times per month [facility] Sex Assigned At Sex Assigned At Bir th [facility] Other Clinical Notes 02-15-2021 to 06-30-2023 Note Date & Type Note Facility 06-30-2023 Evaluation note Encounter Date Diagnosis Assessment Notes Jun, Diarrhea (ICD-10 - R19.7) Jun, Nausea (ICD-10 - R11.0) Jun, Weight loss (ICD-10 - R63.4) [facility] Other 12-30-2022 NotePlease notify patient that all of her labs are normal. We will proceed with EGD for further evaluation as planned. She needs to follow up with her PCP or whoever ordered the UA. This was not ordered by us and is abnormal. Please advise patient to follow up with ordering provider.[facility]12-19-2022 Miscellaneous Notes* Telephone Encounter - Alize Jefferson RN - 05/26/2022 10:53 PM EST Reason for Call: pt does not have a current PCP and is having worsening symptoms since seen in ED on 05/24/22 Outcome: Advised to return to ED now, agreeable. [facility] Note Attestation signed by Gonzalez Powell MD at 05/23/2022 7:30 PM I personally saw and examined the patient on the same date of service as resident/fellow . I discussed the findings and therapeutic plan with the resident/fellow . I agree with the documentation, except for any edits/updates below. [facility] Gastroenterology History & Physical CHIEF COMPLAINT Chief Complaint Patient presents with New Patient Fatigue Had gallbladder removed in 03/2021, Dr. Powell found and fixed leak 04/2021, pt is having major problems with eating and drinking. Was referred back in 2020 HISTORY OF PRESENT ILLNESS: Jovon Lopez is a 27 y.o. female with history laparoscopic cholecystectomy on 03/25/2021 at [facility] (in setting of cholecystitis) complicated by biliary leak status post biliary stent on 03/28/2021 and transferred back to [place]. While there, she had worsening abdominal pain [...] cholangiogram. Biliary sphincterotomy was performed. A 10 Turkish X 9 cm plastic biliary stent was [...] normal bowel sounds, soft, (more content not included)...[facility]11-01-2021 History general Narrative - Reported* Type Description Date Surgical History C section Surgical History cholecystectomy 04/2021 [facility] Other 09-10-2021 History of Present illness Narrative* [...] I did review with her that the account consultant can review pump usage with her [...] - CNM - 02/13/2021 7:35 PM EDT Clinic Supervisor Note: special education teaching assistant/surgical nurse primary section with Dr Hooks Closed SQ layer and also closed skin incision. All edges approximated, no bleeding or drainage noted. biomass technician places sterile dressing over incision. Patient [...] 02/13/2021 5:15 PM EDT Surgery notified that butcher apprentice and recovery nurse needed for impending . documented in this [facility] Phone: 1(869) 410-729809-10-2021 Hospital Discharge instructions* Instructions* Lila Mcintosh RN - 02/15/2021 Follow-up with your OB doctor as specified. [facility] Department phone: Dr. Neva YOUM Dr. Brittani Espinoza CN [address] [facility] [address] [facility] [address] [place] or [place] Lani Mera, MSN, SENIOR SOFTWARE ARCHITECT, CNM [address] [address] DIET Eat a well balanced diet focusing on foods high in fiber and protein. Drink plenty of fluids especially water. To avoid constipation you may take a mild stool softener as recommended by your doctor or clearing inspector. ACTIVITY Gradually increase your activity. Resume exercise regimen only after advice by your doctor or clearing inspector. Avoid lifting anything heavier than a gallon of milk for SIX weeks. Avoid driving until your doctor or clearing inspector has given their approval. Rise slowly from [...] medications as recommended by your doctor or clearing inspector for pain If you develop a warm, [...] vitamins as directed by your doctor or clearing inspector. Refer to the booklet in the folder/binder for more information. If you feel you need more assistance or have questions, please call Loreta Reyes IBCLC, account consultant, at or the OB department to [...] area in your calf. documented in this [facility] Work Phone: 1(275) 867-783909-10-2021 Hospital course Narrative* Kyra Smith APRN - [...] for: HEPBSAG HIV: No results found for: [id number] Results for orders placed or performed during [...] # 1.67 1.10 - 3.70 k/uL Absolute Bee # 0.44 0.10 - 1.20 k/uL Absolute [...] Range Expiration Date 02/16/2021,2359 Arm Band Number [id number] ABO/Rh A POSITIVE Antibody Screen NEGATIVE complications: none Discharge Medication: Jovon Lopez [place] Medication Instructions [place]:[id number] Printed on:02/15/21 1002 Medication Information docusate sodium [...] and post depression check documented in this [facility]The [facility] Phone: [email or web address] note* Diagnosis S/P primary low transverse - Primary delivery, without mention of indication, unspecified as to episode of care Encounter for induction of labor Term intolerance to labor, delivered, current hospitalization Abnormality in heart rate/rhythm, delivered, with or without mention of antepartum condition documented in this encounter [facility] Phone: [email or web address] noteNo assessment information available [facility] Work Phone: Evaluation noteNo InformationNort [facility] Other Hospital Discharge instructions Additional Instructions Follow-up with GI doctor provided Return to the ED if develop worsening symptoms or concerns take the new medications as prescribed, use pepto bismol, tums as needed avoid any spicy foods, fatty foods and [facility] Work Phone: Summary Purpose Family History [...] section and content) DATE CREATED AUTHOR 08/25/2018 [facility] DATE CREATED AUTHOR AUTHOR'S ORGANIZ ATION 02/16/2021 [facility] DATE CREATED AUTHOR AUTHOR'S ORGANIZ ATION 05/21/2021 [facility] DATE CREATED AUTHOR AUTHOR'S ORGANIZ ATION 05/27/2021 [facility] Me dical Specialist DATE CREATED AUTHOR AUTHOR'S ORGANIZ ATION 05/30/2022 [facility] DATE CREATED AUTHOR AUTHOR'S ORGANIZ ATION 07/17/2022 [facility] DATE CREATED AUTHOR AUTHOR'S ORGANIZ ATION 10/22/2022 [facility] DATE CREATED AUTHOR AUTHOR'S ORGANIZ ATION 07/17/2023 [facility] DATE CREATED AUTHOR AUTHOR'S ORGANIZ ATION 01/03/2024 [facility] dical Specialists EPIC Reason for Visit (unrecogniz ed section and content) Reason Comments Scheduled Induction Cytotec Induction Status Reason Specialty Diagnoses / Procedures Referre d By Contact Referred To Contact Diagnoses Encounter for induction of labor Term Nash Mera APRN - CNM [address] [place] [address] [facility] Reason Comments Muscle Aches Ordered Prescriptions [...] 50 mL IVPB (COMPLETED) 900 mg, IntraVENous, COMMUNITY OUTREACH COORDINATOR TO O.R., 1 dose, On Thu02/13/21 at [...] (Due) 0900 (Due)2100 (Due) 09 (Due)2100 (Due) Vyppxrk-Wjuvay-Qggxo Pertussis (BOOSTRIX) injection 0.5 mL 0.5 mL, [...] Bag - Provider: Luther Silvestre APRN - AOC DIRECTOR INTELLIGENCE OFFICER)1912 (Anesthesia Volume Adjustment - Provider: Luther Silvestre APRN - AOC DIRECTOR INTELLIGENCE OFFICER) lactated ringers infusion IntraVENous, at 125 mL/hr, [...] every 2-3 minutes with cervical changes or [place] units (MVU) greater than 200 in a [...] Rosario) 212 (Stopped - Provider: Inna L Rice, RN - Comment: infusion complete.) sennosides-docusate sodium [...] or prosecute any alcohol or drug abuse patient.[facility] FOR RECORDS PERTAINING TO PATIENTS WHO [...] BE BASED ON THE PRIMARY CLINICAL RECORDS. [employer] [facility]. provides no warranty or guarantee of the accuracy or completeness of information in this document.
== END 2024-02-05 12:10 | disposition home or self-care (01) ==
LOC: FBCO 11:10
PROVIDERS: Visit Provider Midwife
DX: Z39.1 Encounter for care and examination of lactating mother (principal)

== ENCOUNTER 2024-07-26 04:38 | Observation (INO) | payer OTHER, SELFPAY ==
[2024-07-26] VITALS (29 sets, daily range): BP systolic 98–154; BP diastolic 45–72; PULSE 74–78; TEMP 36.8; O2SAT 77–100; BMI 27.4; BMI 26.5
--- OUTSIDE RECORDS SUMMARY | 2024-07-26 04:46 | XMS_ITS | CCD ---
Author Organization [facility] Care Team Providers Care Road Crew Member Name Role Phone BRIGITTE BA Marvel Attending Unavailable Unavailable Primary Care Provider UnavailNASH Mortensen Attending Unavailable FLORO, NASH Admitting Unavailable SELF, REFERRED Referring Unavailable SELF, REFERRED Primary Care Unavailable GONZALEZ POWELL Attending Unavailable GONZALEZ POWELL Admitting Unavailable NO FAMILY, PHYSICIAN Primary Care Provider UnaDO Reggie Schneider Emergency Provider Unavailable Primary Care Provider UnavailIKE [place] Primary Care Unavailable GONZALEZ POWELL Attending Unavailable REQUEST, NONE LISTED Primary Care Unavaila marcelina Mccray, HILDA Attending Unavailable JOSELO Mccray, HILDA Admitting Unavailable DI .ROSS Consulting Unavailable JOSELO Mccray, HILDA Consulting Unavailable JAYNE, NONE LISTED Primary Care Unavaillori ESPINOZA, DR GODWIN Naranjo Attending Unavailable BAUDILIO, DR GODWIN Naranjo Consulting Unavailable BAUDILIO, DR GODWIN Naranjo Admitting Unavailable RAFA KAPLAN Consulting Unavailable Luis Leung Unavailable NO FAMILY, PHYSICIAN Primary Care Unavailable Howie Plata Jr Attending Unavailable Howie Plata Jr Admitting Unavailable FLORO, NASH Grier Attending Unavailable FLORO, NASH Marvel Attending Unavailable FLORO, NASH Marvel Attending Unavailable FLORO, NASH L Referring Unavailable [...] Referring Unavailable FLORO, NASH L Attending Unavailable Unallocated , Noms Provider Primary Care Provi meño Unallocated Viet HERNANDEZ Provider Primary Care Provi meño Allergies Allergy Classification Reported Allergen(s) Allergy Type Date of Onset Reaction(s) Facility (4 sources) Penicillins; Translations: [PENICILLINS] Propensity to adverse reactions to drug 08-21-19 Other (See Comments) [facility] (4 sources) Morphine; Translations: [MORPHINE] Drug Allergy 05-01-20 Hives [facility] Repository (2 sources) Penicillin Drug Allergy 07-24-19 [facility] Repository (8 sources) Morphine Drug Allergy 05-23-20 Hives [facility] (1 source) Penicillins Propensity to adverse reactions to drug 08-21-19 Unknown [facility] (1 source) Morphine Drug Allergy 04-29-20 [facility] Repository (2 sources) Amoxicillin Drug Allergy [facility] [place] Other (1 source) Amoxicillin Drug Allergy 06-30-19 [facility] Repository (1 source) Morphine Drug Allergy 06-30-19 [facility] Repository (1 source) Penicillins Drug allergy (disorder) 04-20-20 [facility] Repository (5 sources) Penicillins Drug Intolerance 08-21-19 Rash, Hives [facility] Healthcare Medications Current Medications Medication Drug Class(es) Dates [...] diphenhydrAMINE (BENADRYL) injection 25 mg docusate sodium 50 mg / sennosides, fdc 8.6 mg oral tablet (1 source) Start: 02-13-2021 sennosides-docusate sodium (SENOKOT-S) 8.6-50 MG tablet 1 tablet 0.4 ml enoxaparin sodium 100 mg/ml prefilled syringe (1 source) Low Molecular Weight Heparin Start: 02-14-2021 enoxaparin (LOVENOX) injection 40 mg escitalopram 20 mg oral tablet (3 sources) Serotonin Reuptake Inhibitor Start: 03-01-2024 take 1 tablet by mouth once daily escitalopram (Lexapro) 20 MG tablet Indications: Post depression (CMS/HCC) Take 1 tablet (20 mg) by mouth Daily 30 tablet 1 03/01/2024 Active ferrous sulfate 325 mg oral tablet (1 [...] daily. (2 sources) Active Vit-Fe Fumarate-FA ( Plus/Iron) 27-1 MG tablet (5 sources) Start: 09-23-2023 take 1 tablet by mouth once daily Vit-Fe Fumarate-FA ( Plus/Iron) 27-1 MG tablet Indications: Encounter for supervision of other normal , second trimester Take 1 tablet by mouth Daily 30 tablet 3 09/23/2023 Active Vit-Fe Fumarate-FA ( VITAMINS PO) (1 [...] Drug Class(es) Dates Sig (Normalized) Sig (Original) Acetaminophen / Chlorpheniramine / Phenylephrine (4 sources) Histamine-1 Receptor Antagonist, alpha-1 Adrenergic Agonist Start: 12-08-2023 End: 03-01-2024 take 2 tablets by mouth every six hours Wjcuqzsga-VN-Ktzlu minophen 2-5-325 & 5-325 MG misc Indications: Pharyngitis, unspecified etiology Take 2 tablets by mouth every 6 (six) hours if needed (discomfort) 20 each 12/08/2023 03/01/2024 Discontinued (Therapy completed) Start: 12-08-2023 take 2 tablets by mo [facility] every six hours Kstvpdjfj-OS-Fdlxaclszrznb 2-5-325 & 5-3 25 MG misc Indications: Pharyngitis, unspecified etiology Take 2 tablets by mouth every 6 (six) hours if needed (discomfort) 20 each 12/08/2023 Active acetaminophen 325 mg / HYDROcodone bitartrate 5 mg oral tablet (1 source) Opioid Agonist Start: 11-26-2016 take 1 tablet by mouth every six hours as needed HYDROcodone-acetaminophen (NORCO) 5-325 mg per tablet Take 1 tablet by mouth every 6 hours as needed. 20 tablet 0 11/26/2016 Active Comment on above: Take 1 tablet by [facility] every 6 hours as needed. calcium carbonate [...] acid-sodium citrate ( BICITRA) solution 30 mL docusate sodium 100 mg oral capsule (6 sources) Start: 09-23-2023 End: 09-22-2024 take 1 capsule by mouth in the morning docusate sodium (Colace) 100 MG capsule Indications: Constipation, unspecified constipation type Take 1 capsule (100 mg) by mouth in the morning and 1 capsule (100 mg) before bedtime. 60 capsule 11 09/23/2023 03/01/2024 Discontinued (Therapy completed) Start: 02-13-2021 docusate sodiu m (COLACE) capsule 100 mg 2 ml famotidine 10 mg/ml injection (3 [...] Translations: [Epigastric pain] Onset: 2 05-17-2022 Episodic Intestinal infection (1 source) Acute gastroenteropathy due to [place] agent; Translations: [ACUTE GASTROENTROPATHY [place] AGNT] Onset: 3 Episodic Miscellaneous mental health disorders (2 sources) depression; Translations: [ depression] 03-01-2024 Episodic Nausea and vomiting (7 sources) Nausea with vomiting, unspecified; Translations: [Nausea] Onset: 2 Episodic Other female genital disorders (2 sources) Vaginal discharge; Translations: [Other specified noninflammatory disorders of vagina] 03-01-2024 Episodic Other gastrointestinal disorders (1 source) Diarrhea, unspecified Episodic Other nutritional; endocrine; and metabolic disorders (1 source) Abnormal weight loss Episodic Other and delivery including normal (4 sources) Patient encounter status; Translations: [Encounter for supervision of normal , unspecified, unspecified trimester] Onset: 1 Episodic Substance-related disorders (2 sources) Cannabis use, unspecified, uncomplicated; Translations: [Cannabis use, unspecified, uncomplicated] Onset: 2 Episodic Unclassified (5 sources) OB Reminders Onset: 3 05-14-2023 Past or Other Problems Problem Classification Problem Date Documented Date Episodic/Chronic Biliary tract disease (5 sources) Cholelithiasis without obstruction; Translations: [Calculus of gallbladder without cholecystitis without obstruction] Onset: 09-17-2023 09-17-2023 Episodic Complications of surgical procedures or medical care (5 sources) Biliary anastomotic leak; Translations: [Other postprocedural complications and disorders of digestive system] Onset: 03-29-2021 Resolved: 09-17-2023 09-17-2023 Episodic distress and abnormal forces of labor (7 sources) Liveborn with labor distress; Translations: [Labor and delivery complicated by stress, unspecified] Onset: 05-22-2022 Resolved: 09-17-2023 Episodic Menstrual disorders (5 sources) Amenorrhea; Translations: [Amenorrhea, unspecified] Onset: 09-17-2023 Resolved: 09-17-2023 09-17-2023 Chronic Other infections; including parasitic (5 sources) History of chlamydial infection; Translations: [Personal history of other infectious and parasitic diseases] Onset: 06-27-2020 Resolved: 09-17-2023 09-17-2023 Episodic Residual codes; unclassified (1 source) Acquired absence of other specified parts of digestive tract; Translations: [ACQ ABSENCE OTH PART DIGESTV TRACT] Onset: 05-06-2022 Episodic Residual codes; unclassified (5 sources) H/O: miscarriage; Translations: [Personal history of other complications of , childbirth and the puerperium] Onset: 06-27-2020 Resolved: 09-17-2023 09-17-2023 Episodic Results Test Name Value Interpretation Reference Range Facility Laboratoryon 03-02-2024 C. glabrata RNA UTE+probe Ql (Vag fld) Not detected NOT DETECTED [facility] Comment on above: Lucía species C. albicans, C. tropicalis, C. parapsilosis, and/or C. dubliniensis can be detected, but not differentiated, in the Lucía spp. result. Laboratory - Microbiology an d Antimicrobial susceptibilityon 03-02-2024 C. trachomatis rRNA UTE+probe Ql (Unsp spec) Not detected NOT DETECTED [facility] Lucía sp rRNA Probe Ql (Vag fld) Not detected NOT DETECTED [facility] Lactobacillus crispatus+gasseri+jense supriya + Gardnerella vaginalis + Atopobium vaginae rRNA UTE+probe Ql (Vag fld) Negative NEGATIVE [facility] N. gonorrhoeae rRNA UTE+probe Ql (Unsp spec) Not detected NOT DETECTED [facility] Comment on above: For additional infor teresa, please refer to https://education.[employer]/faq/NJV311 (This link is being provided for information/ educational purposes only.) T. vaginalis rRNA UTE+probe Ql (Unsp spec) Not detected NOT DETECTED [facility] No Panel Informationon 03-02 Performing Organization Information Site ID: QPT Name: [facility] Address: [address] [place] [id number] Director: Shamar Colunga MD [facility] US OB 14+ WEEKS ANATOMY SCAN on [...] , with heart rate of 126 bpm. [place]-rump length measures 0.95 cm, yielding an estimated [...] Available HCG,Quantitativeon 3 HCG,Quantitative 25.40 m[iU]/mL Normal [facility] Comment on above: Result Comment: Appr oximate Approximate hCG Gestational Age Range (mIU/ml) (weeks) 0.2-1 5-50 1-2 50-500 2-3 100-5,000 3-4 500-10,000 4-5 1,000-50,000 5-6 10,000-100,000 6-8 15,000-200,000 8-12 10,000-100,000 PERFORMED BY: [place] [address] PATHOLOGIST SOAP TENDER ARJUN HASTINGS M.D. Performed By: #### H CGQNT #### [facility] [address] [place], [place] [id number] [place] HCG,Urineon 04-21-2023 Beta HCG ( test) Ql (U) Negative Normal [facility] Comment on above: Order Comment: Name Collection Type:: Clean-Voided Midstream Result Comment: PERF ORMED BY: [place] [address] PATHOLOGIST SOAP TENDER ARJUN HASTINGS M.D. Performed By: #### U A, CG #### [facility] [address] [place], [place] [address] [place] Urinalysison 04-21-2023 Appearance (U) Clear Normal Clear [facility] Comment on above: Order Comment: Name Collection Type:: Clean-Voided Midstream Performed By: #### U A, UHCG #### [facility] [address] [place] [address] [place] Bilirubin,Urine Negative Normal Negative [facility] Comment on above: Order Comment: Name Collection Type:: Clean-Voided Midstream Performed By: #### U A, UHCG #### [facility] [address] [place] [address] Color (U) Yellow Normal Yellow [facility] Comment on above: Order Comment: Name Collection Type:: Clean-Voided Midstream Performed By: #### U A, UHCG #### [facility] [address] [place] [address] Glucose Ql (U) Normal Normal Normal [facility] Comment on above: Order Comment: Name Collection Type:: Clean-Voided Midstream Performed By: #### U A, UHCG #### [address] Ketones Ql (U) Negative Normal Negative [facility] Comment on above: Order Comment: Name Collection Type:: Clean-Voided Midstream Performed By: #### U A, UHCG #### [facility] [address] [place] [address] Leukocyte esterase Test strip Ql (U) Negative Normal Negative [facility] Comment on above: Order Comment: Name Collection Type:: Clean-Voided Midstream Performed By: #### U A, UHCG #### [facility] [address] [place] [address] [place] Nitrite,Urine Negative Normal Negative [facility] Comment on above: Order Comment: Name Collection Type:: Clean-Voided Midstream Performed By: #### U A, UHCG #### [facility] [address] [place] [address] [place] Occult Blood,Urine Negative Normal Negative [facility] Comment on above: Order Comment: Name Collection Type:: Clean-Voided Midstream Performed By: #### U A, UHCG #### [facility] [address] [place] [address] [place] pH (U) 7.5 [pH] Normal 5.0-9.0 [facility] Comment on above: Order Comment: Name Collection Type:: Clean-Voided Midstream Performed By: #### U A, UHCG #### [facility] [address] Protein,Urine Negative Normal Negative [facility] Comment on above: Order Comment: Name Collection Type:: Clean-Voided Midstream Performed By: #### U A, UHCG #### [address] Specificy [place],Urine 1.011 Normal 1.001-1.030 [facility] Comment on above: Order Comment: Name Collection Type:: Clean-Voided Midstream Performed By: #### U A, UHCG #### [address] Urobilinogen,Urine Normal Normal Normal [facility] Comment on above: Order Comment: Name Collection Type:: Clean-Voided Midstream Performed By: #### U A, UHCG #### [address] AMYLASEon 10-19-2022 Amylase [Catalytic activity/Vol] 42 U/L Normal 25-115 [facility] Comment on above: Performed By: #### L IPA, ROSS, CMP #### [facility] [address] [place] [address] Dr. Radha Garcia CBC AUTO DIFFon 10-19-2022 BASO # 0.0 103/ul Normal 0.0-0.1 [facility] Comment on above: Performed By: #### C BC #### [facility] [address] [place] [address] Dr. Radha Garcia Basophils/100 WBC (Bld) 0.4 % Normal 0.2-2.0 [facility] Comment on above: Performed By: #### C BC #### [facility] [address] [place] [address] Dr. Radha Garcia EO # 0.1 103/ul Normal 0.0-0.7 [facility] Comment on above: Performed By: #### C BC #### [facility] [address] [place] [address] Dr. Radha Garcia Eosinophils/100 WBC (Bld) 2.9 % Normal 0.9-7.0 [facility] Comment on above: Performed By: #### C BC #### [facility] [address] [place] [address] Dr. Radha Garcia Erythrocyte distribution width (RBC) [Ratio] 12.6 % Normal 11.0-15.0 [facility] Comment on above: Performed By: #### C BC #### [facility] [address] [place] [address] Dr. Radha Garcia Hematocrit (Bld) [Volume fraction] 41.9 % Normal 36.0-48.0 [facility] Comment on above: Performed By: #### C BC #### [facility] [address] [place] [address] Dr. Radha Garcia Hemoglobin (Bld) [Mass/Vol] 13.8 g/dL Normal 12.0-16.0 [facility] Comment on above: Performed By: #### C BC #### [facility] [address] [place] [address] Dr. Radha Garcia IG # 0.01 10e3/ul Normal 0.00-0.03 [facility] Comment on above: Performed By: #### C BC #### [facility] [address] [place] [address] Dr. Radha Garcia IG % 0.2 % Normal 0.0-0.5 [facility] Comment on above: Performed By: #### C BC #### [facility] [address] [place] [address] Dr. Radha Garcia LYMPH # 1.2 103/ul Normal 1.2-3.8 [facility] Comment on above: Performed By: #### C BC #### [facility] [address] [place] [address] Dr. Radha Garcia Lymphocytes/100 WBC (Bld) 25.6 % Normal 20.5-60.0 [facility] Comment on above: Performed By: #### C BC #### [facility] [address] [place] [address] Dr. Radha Garcia MANUAL DIFF REQ NO Normal [facility] Comment on above: Performed By: #### C BC #### [facility] [address] [place] [address] Dr. Radha Garcia MCH (RBC) [Entitic mass] 29.9 pg Normal 26.7-34.0 [facility] Comment on above: Performed By: #### C BC #### [facility] [address] [place] [address] Dr. Radha Garcia MCHC (RBC) [Mass/Vol] 32.9 g/dL Normal 29.9-35.2 [facility] Comment on above: Performed By: #### C BC #### [facility] [address] [place] [address] Dr. Radha Garcia MCV (RBC) [Entitic vol] 90.9 fL Normal 81.0-99.0 [facility] Comment on above: Performed By: #### C BC #### [facility] [address] [place] [address] Dr. Radha Garcia MONO # 0.3 103/ul Normal 0.3-0.8 [facility] Comment on above: Performed By: #### C BC #### [facility] [address] [place] [address] Dr. Radha Garcia Monocytes/100 WBC (Bld) 6.5 % Normal 1.7-12.0 [facility] Comment on above: Performed By: #### C BC #### [facility] [address] [place] [address] Dr. Radha Garcia NEUT # 2.9 103/ul Normal 1.4-6.5 [facility] Comment on above: Performed By: #### C BC #### [facility] [address] [place] [address] Dr. Radha Garcia Neutrophils/100 WBC (Bld) 64.4 % Normal 43.0-75.0 [facility] Comment on above: Performed By: #### C BC #### [facility] [address] [place] [address] Dr. Radha Garcia Platelet mean volume (Bld) [Entitic vol] 10.6 fL Normal 9.5-13.5 [facility] Comment on above: Performed By: #### C BC #### [facility] [address] [place] [address] Dr. Radha Garcia PLT 246 103/ul Normal 150-450 [facility] Comment on above: Performed By: #### C BC #### [facility] [address] [place] [address] Dr. Radha Garcia RBC 4.61 106/ul Normal 4.20-5.40 [facility] Comment on above: Performed By: #### C BC #### [facility] [address] [place] [address] Dr. Radha Garcia WBC 4.5 103/ul Normal 4.0-11.0 [facility] Comment on above: Performed By: #### C BC #### [facility] [address] [place] [address] Dr. Radha Garcia GI PANEL (PCR)on 10-19-2022 Adenovirus F 40/41 Not detected Normal NOT DETECTED [facility] Comment on above: Performed By: #### G IPANEL #### [facility] [address] [place] [address] Dr. Radha Garcia Astrovirus Not detected Normal NOT DETECTED [facility] Comment on above: Performed By: #### G IPANEL #### [facility] [address] [place] [address] Dr. Radha Garcia C. Diff toxin A/B Not detected Normal NOT DETECTED [facility] Comment on above: Performed By: #### G IPANEL #### [facility] [address] [place] [address] Dr. Radha Garcia Campylobacter Not detected Normal NOT DETECTED [facility] Comment on above: Performed By: #### G IPANEL #### [facility] [address] [place] [address] Dr. Radha aGrcia Cryptosporidium Not detected Normal NOT DETECTED [facility] Comment on above: Performed By: #### G IPANEL #### [facility] [address] [place] [address] Dr. Radha Garcia Cyclos. Cayetanensis Not detected Normal NOT DETECTED [facility] Comment on above: Performed By: #### G IPANEL #### [facility] [address] [address] [address] Radha Garcia E. Coli O157 Not Applicable Normal Not Applicable [facility] Comment on above: Performed By: #### G IPANEL #### [facility] [address] [address] [address] Radha Garcia E. histolytica Not detected Normal NOT DETECTED [facility] Comment on above: Performed By: #### G IPANEL #### [facility] [address] [place] [address] Dr. Radha Garcia EAEC Not detected Normal NOT DETECTED [facility] Comment on above: Performed By: #### G IPANEL #### [facility] [address] [address] [address] Radha Garcia EIEC Not detected Normal NOT DETECTED [facility] Comment on above: Performed By: #### G IPANEL #### [facility] [address] [place] [address] Dr. Radha Garcia EPEC Not detected Normal NOT DETECTED [facility] Comment on above: Performed By: #### G IPANEL #### [facility] [address] [place] [address] Dr. Radha Garcia ETEC Not detected Normal NOT DETECTED [facility] Comment on above: Performed By: #### G IPANEL #### [facility] [address] [place] [address] Dr. Radha Garcia G. Lamblia Not detected Normal NOT DETECTED [facility] Comment on above: Performed By: #### G IPANEL #### [facility] [address] [place] [address] Dr. Radha Garcia GIPANEL CONTROLS PASSED Normal [facility] Comment on above: Performed By: #### G IPANEL #### [facility] [address] [place] [address] Dr. Radha TALBERT HEADER GI PANEL BACTERIA Normal T [facility] Comment on above: Performed By: #### G IPANEL #### [facility] [address] [address] [address] Radha LOUIS ECOLI GI PANEL DIARRHEAGENIC E.COLI / SHIGELLA Normal [facility] Comment on above: Performed By: #### G IPANEL #### [facility] [address] [address] [address] Radha LOUIS INFO SEE BELOW [facility] Comment on above: Result Comment: EAEC - Enteroaggregative E. Coli EPEC- Enteropathogenic E. Coli ETEC- Enterotoxigenic E. Coli lt/st STEC- Shigella-like toxin-producing E. Coli stx1/stx2 EIEC- Shigella/Enteroinvasive E. Coli Performed By: #### G IPANEL #### [facility] [address] [place] [address] Dr. Radha LOUIS PARASITES GI PANEL PARASITES Normal [facility] Comment on above: Performed By: #### G IPANEL #### [facility] [address] [place] [address] Dr. Radha LOUIS VIRUS GI PANEL VIRUSES Normal [facility] Comment on above: Performed By: #### G IPANEL #### [facility] [address] [place] [address] Dr. Radha Garcia Norovirus GI/GII Detected Abnormal NOT DETECTED [facility] Comment on above: Performed By: #### G IPANEL #### [facility] [address] [place] [address] Dr. Radha Garcia P. Shigelloides Not detected Normal NOT DETECTED [facility] Comment on above: Performed By: #### G IPANEL #### [facility] [address] [address] [address] Radha Garcia Rotavirus A Not detected Normal NOT DETECTED [facility] Comment on above: Performed By: #### G IPANEL #### [facility] [address] [place] [address] Dr. Radha Garcia Salmonella Not detected Normal NOT DETECTED [facility] Comment on above: Performed By: #### G IPANEL #### [facility] [address] [place] [address] Dr. Radha Garcia Sapovirus Not detected Normal NOT DETECTED [facility] Comment on above: Performed By: #### G IPANEL #### [facility] [address] [place] [address] Dr. Radha Garcia STEC Not detected Normal NOT DETECTED [facility] Comment on above: Performed By: #### G IPANEL #### [facility] [address] [place] [address] Dr. Radha Garcia Vibrio Not detected Normal NOT DETECTED [facility] Comment on above: Performed By: #### G IPANEL #### [facility] [address] [place] [address] Dr. Radha Garcia Vibrio Cholera Not detected Normal NOT DETECTED The [facility] Comment on above: Performed By: #### G IPANEL #### [facility] [address] [place] [address] Dr. Radha Garcia Y. Enterocolitica Not detected Normal NOT DETECTED [facility] Comment on above: Performed By: #### G IPANEL #### [facility] [address] [place] [address] Dr. Radha Garcia LIPASEon 10-19-2022 Lipase [Catalytic activity/Vol] 54.0 U/L Critically low 73.0-393.0 [facility] Comment on above: Performed By: #### L ROSS BAKER CMP #### [facility] [address] [place] [address] Dr. Radha Garcia PROF 14(COMP METB)on 023 Albumin [Mass/Vol] 3.3 g/dL Critically low 3.4-5.[address] [facility] Comment on above: Performed By: #### L ROSS BAKER, CMP #### [facility] [address] [place] [address] Dr. Radha Garcia Albumin/Globulin [Mass ratio] 1.0 {ratio} Normal [facility] Comment on above: Performed By: #### L IPA, ROSS, CMP #### [facility] [address] [address] [address] Radha Garcia ALP [Catalytic activity/Vol] 58 U/L Normal 46-116 [facility] Comment on above: Performed By: #### L IPA, ROSS, CMP #### [facility] [address] [address] [address] Radha Garcia ALT [Catalytic activity/Vol] 25 U/L Normal 14-59 [facility] Comment on above: Performed By: #### L IPA, ROSS, CMP #### [facility] [address] [address] [address] Radha Garcia Anion gap [Moles/Vol] 14.5 mmol/L Normal [facility] Comment on above: Performed By: #### L IPA, ROSS, CMP #### [facility] [address] [address] [address] Radha Garcia AST [Catalytic activity/Vol] 19 U/L Normal 15-37 [facility] Comment on above: Performed By: #### L IPA, ROSS, CMP #### [facility] [address] [address] [address] Radha Garcia Bilirubin [Mass/Vol] 0.8 mg/dL Normal 0.2-1.0 [facility] Comment on above: Performed By: #### L IPA, ROSS, CMP #### [facility] [address] [address] [address] Radha Garcia Calcium [Mass/Vol] 8.4 mg/dL Critically low 8.5-10.[address] [facility] Comment on above: Performed By: #### L IPA, ROSS, CMP #### [facility] [address] [address] [address] Radha Garcia Chloride [Moles/Vol] 107 mmol/L Normal 98-107 [facility] Comment on above: Performed By: #### L IPA, ROSS, CMP #### [facility] [address] [address] [address] Radha Garcia CO2 [Moles/Vol] 25.8 mmol/L Normal 21.0-32.0 [facility] Comment on above: Performed By: #### L IPA, ROSS, CMP #### [facility] [address] [address] [address] Radha Garcia Creatinine [Mass/Vol] 0.78 mg/dL Normal 0.55-1.02 [facility] Comment on above: Performed By: #### L IPA, ROSS, CMP #### [facility] [address] [address] [address] Radha Garcia EGFR-AF GUAMANIAN >60 Normal >=60 [facility] Comment on above: Performed By: #### L IPA, ROSS, CMP #### [facility] [address] [address] [address] Radha Garcia EGFR-NON AF GUAMANIAN >60 Normal >=60 [facility] Comment on above: Performed By: #### L IPA, ROSS, CMP #### [facility] [address] [address] [address] Radha Garcia Globulin (S) [Mass/Vol] 3.2 g/dL Normal [facility] Comment on above: Performed By: #### L IPA, ROSS, CMP #### [facility] [address] [address] [address] Radha Garcia Glucose [Mass/Vol] 96 mg/dL Normal 74-106 [facility] Comment on above: Performed By: #### L IPA, ROSS, CMP #### [facility] [address] [address] [address] Radha Garcia Potassium [Moles/Vol] 3.3 mmol/L Critically low 3.5-5.1 [facility] Comment on above: Performed By: #### L IPA, ROSS, CMP #### [facility] [address] [address] [address] Radha Garcia Protein [Mass/Vol] 6.5 g/dL Normal 6.4-8.2 [facility] Comment on above: Performed By: #### L IPA, ROSS, CMP #### [facility] [address] [address] [address] Radha Garcia Sodium [Moles/Vol] 144 mmol/L Normal 136-145 [facility] Comment on above: Performed By: #### L ROSS BAKER, CMP #### [facility] [address] [address] [address] Radha Garcia Urea nitrogen [Mass/Vol] 6.0 mg/dL Critically low 7.0-18.0 [facility] Comment on above: Performed By: #### L ROSS BAKER, CMP #### [facility] [address] [address] [address] Radha Garcia Urea nitrogen/Creatinine [Mass ratio] 7.7 mg/mg Normal [facility] Comment on above: Performed By: #### L ROSS BAKER, CMP #### [facility] [address] [address] [address] Radha Garcia 36on 07-16-2022 36 Attempted to call an d schedule an EGD, but mail box is full unable to leave a message. Will mail her a letter. Normal [facility] 36on 06-06-2022 36 ----- Message from Mary Jo Javier MA sent at 05/26/2022 10:02 AM EST ----- For your review! Normal [facility] BETA HCG, QUANTITATIVE FOR E Don 05-25-2022 HCG.beta subunit Qn m[IU]/mL Normal <5.0 [facility] Comment on above: Order Comment: Speci men Type: BLOOD SPECIMEN Ordering Facility: [facility] Address: [address] [place], [place] [address] Result Comment: Nega tive Performed By: #### 2 4323-8, 3040-3, HCGED, 37016-0 #### [facility] CLIA [id number] [place] [address] [place] CBC W Auto Differential pane l (Bld)on 05-25-2022 Basophils (Bld) [#/Vol] 10*3/uL Normal <0.11 [facility] Comment on above: Order Comment: Speci men Type: BLOOD SPECIMEN Ordering Facility: [facility] Address: [address] [id number] Performed By: #### 5 7021-8 #### [facility] [place] [id number] [address] [place] [address] [place] Basophils/100 WBC (Bld) 0.1 % Normal [facility] Comment on above: Order Comment: Speci men Type: BLOOD SPECIMEN Ordering Facility: [facility] Address: [address] [address] Performed By: #### 5 7021-8 #### [facility] [place] [id number] [place] [address] [place] Differential cell count method Nom (Bld) Auto Normal [facility] Comment on above: Order Comment: Speci men Type: BLOOD SPECIMEN Ordering Facility: [facility] Address: [address] [place] [address] Performed By: #### 5 7021-8 #### [facility] IA [id number] [address] [place] [address] [place] Eosinophils (Bld) [#/Vol] 0.08 10*3/uL Normal <0.46 [facility] Comment on above: Order Comment: Speci men Type: BLOOD SPECIMEN Ordering Facility: [facility] Address: [address] [address] Performed By: #### 5 7021-8 #### [facility] [place] [id number] [place] [address] STATES OF [facility] Eosinophils/100 WBC (Bld) 1.0 % Normal [facility] Comment on above: Order Comment: Speci men Type: BLOOD SPECIMEN Ordering Facility: [facility] Address: [address] [address] Performed By: #### 5 7021-8 #### [facility] [place] [id number] [place] [address] [place] Erythrocyte distribution width (RBC) [Ratio] 12.4 % Normal 11.5-15.0 [facility] Comment on above: Order Comment: Speci men Type: BLOOD SPECIMEN Ordering Facility: [facility] Address: [address] Performed By: #### 5 7021-8 #### [facility] IA [id number] [address] [place] [address] [place] Hematocrit (Bld) [Volume fraction] 43.0 % Normal 36.0-46.0 [facility] Comment on above: Order Comment: Speci men Type: BLOOD SPECIMEN Ordering Facility: [facility] Address: [address] Performed By: #### 5 7021-8 #### [facility] IA [id number] [address] [place] [address] [place] Hemoglobin (Bld) [Mass/Vol] 14.2 g/dL Normal 11.5-15.5 [facility] Comment on above: Order Comment: Speci men Type: BLOOD SPECIMEN Ordering Facility: [facility] Address: [address] Performed By: #### 5 7021-8 #### [facility] IA [id number] [address] [place] [address] [place] Immature granulocytes (Bld) [#/Vol] 10*3/uL Normal <0.10 [facility] Comment on above: Order Comment: Speci men Type: BLOOD SPECIMEN Ordering Facility: [facility] Address: [address] Performed By: #### 5 7021-8 #### [facility] IA [id number] [address] [place] [address] [place] Immature granulocytes/100 WBC (Bld) 0.2 % Normal [facility] Comment on above: Order Comment: Speci men Type: BLOOD SPECIMEN Ordering Facility: [facility] Address: [address] Performed By: #### 5 7021-8 #### [facility] IA [id number] [address] [place] [address] [place] Lymphocytes (Bld) [#/Vol] 0.30 10*3/uL Low 1.00-4.00 [facility] Comment on above: Order Comment: Speci men Type: BLOOD SPECIMEN Ordering Facility: [facility] Address: [address] [address] Performed By: #### 5 7021-8 #### [facility] IA [id number] [address] OF [facility] Lymphocytes/100 WBC (Bld) 3.6 % Normal [facility] Comment on above: Order Comment: Speci men Type: BLOOD SPECIMEN Ordering Facility: [facility] Address: [address] [address] Performed By: #### 5 7021-8 #### [facility] IA [id number] [place] [address] [place] MCH (RBC) [Entitic mass] 28.7 pg Normal 26.0-34.0 [facility] Comment on above: Order Comment: Speci men Type: BLOOD SPECIMEN Ordering Facility: [facility] Address: [address] [address] Performed By: #### 5 7021-8 #### [facility] IA [id number] [address] [place] MCHC (RBC) [Mass/Vol] 33.0 g/dL Normal 30.5-36.0 [facility] Comment on above: Order Comment: Speci men Type: BLOOD SPECIMEN Ordering Facility: [facility] Address: [address] [address] Performed By: #### 5 7021-8 #### [facility] IA [id number] [address] [place] MCV (RBC) [Entitic vol] 86.9 fL Normal 80.0-100.0 [facility] Comment on above: Order Comment: Speci men Type: BLOOD SPECIMEN Ordering Facility: [facility] Address: [address] [address] Performed By: #### 5 7021-8 #### [facility] IA [id number] [place] [address]. [place] [address] [place] Monocytes (Bld) [#/Vol] 0.19 10*3/uL Normal <0.87 [facility] Comment on above: Order Comment: Speci men Type: BLOOD SPECIMEN Ordering Facility: [facility] Address: [address] [address] Performed By: #### 5 7021-8 #### [facility] CLIA [id number] [address] [place] [address] [place] Monocytes/100 WBC (Bld) 2.3 % Normal [facility] Comment on above: Order Comment: Speci men Type: BLOOD SPECIMEN Ordering Facility: [facility] Address: [address] [address] Performed By: #### 5 7021-8 #### [facility] IA [id number] [address] [place] [address] [place] Neutrophils (Bld) [#/Vol] 7.62 10*3/uL High 1.45-7.50 [facility] Comment on above: Order Comment: Speci men Type: BLOOD SPECIMEN Ordering Facility: [facility] Address: [address] [address] Performed By: #### 5 7021-8 #### [facility] IA [id number] [address] [place] Neutrophils/100 WBC (Bld) 92.8 % Normal [facility] Comment on above: Order Comment: Speci men Type: BLOOD SPECIMEN Ordering Facility: [facility] Address: [address] [address] Performed By: #### 5 7021-8 #### [facility] [place] [id number] [address] [place] [address] [place] Nucleated RBC (Bld) [#/Vol] 10*3/uL Normal <0.01 [facility] Comment on above: Order Comment: Speci men Type: BLOOD SPECIMEN Ordering Facility: [facility] Address: [address] [address] Performed By: #### 5 7021-8 #### [facility] IA [id number] [address] [place] [address] [place] Nucleated RBC/100 WBC (Bld) [Ratio] 0.0 /100 WBC Normal [facility] Comment on above: Order Comment: Speci men Type: BLOOD SPECIMEN Ordering Facility: [facility] Address: [address] Performed By: #### 5 7021-8 #### [facility] IA [id number] [address] [place] [address] [place] Platelet mean volume (Bld) [Entitic vol] 10.5 fL Normal 9.0-12.7 [facility] Comment on above: Order Comment: Speci men Type: BLOOD SPECIMEN Ordering Facility: [facility] Address: [address] [address] Performed By: #### 5 7021-8 #### [facility] IA [id number] [address] [place] [address] [place] Platelets (Bld) [#/Vol] 264 10*3/uL Normal 150-400 [facility] Comment on above: Order Comment: Speci men Type: BLOOD SPECIMEN Ordering Facility: [facility] Address: [address] Performed By: #### 5 7021-8 #### [facility] IA [id number] [address] [place] [address] [place] RBC (Bld) [#/Vol] 4.95 10*6/uL Normal 3.90-5.20 [facility] Comment on above: Order Comment: Speci men Type: BLOOD SPECIMEN Ordering Facility: [facility] Address: [address] [place], [place] [address] Performed By: #### 5 7021-8 #### [facility] IA [id number] [address] [place] [address] [place] WBC (Bld) [#/Vol] 8.22 10*3/uL Normal 3.70-11.00 [facility] Comment on above: Order Comment: Speci men Type: BLOOD SPECIMEN Ordering Facility: [facility] Address: [address] Performed By: #### 5 7021-8 #### [facility] CLIA [id number] [address] [place] [address] [place] [facility] Comprehensive metabolic 2000 panelon 05-25-2022 Albumin [Mass/Vol] 4.3 g/dL Normal 3.9-4.9 [facility] Comment on above: Order Comment: Speci men Type: BLOOD SPECIMEN Ordering Facility: [facility] Address: [address] Performed By: #### 2 4323-8, 3040-3, HCGED, 29750-7 #### [facility] CLIA [id number] [address] [place] [address] [place] ALP [Catalytic activity/Vol] 74 U/L Normal 34-123 [facility] Comment on above: Order Comment: Speci men Type: BLOOD SPECIMEN Ordering Facility: [facility] Address: [address] Performed By: #### 2 4323-8, 3040-3, HCGED, 78838-0 #### [facility] CLIA [id number] [address] [place] [address] [place] ALT [Catalytic activity/Vol] 23 U/L Normal 7-38 [facility] Comment on above: Order Comment: Speci men Type: BLOOD SPECIMEN Ordering Facility: [facility] Address: [address] [place] [address] Performed By: #### 2 4323-8, 3040-3, HCGED, 40582-5 #### [facility] CLIA [id number] [address] [place] [address] [place] Anion gap [Moles/Vol] 12 mmol/L Normal 9-18 [facility] Comment on above: Order Comment: Speci men Type: BLOOD SPECIMEN Ordering Facility: [facility] Address: [address] Performed By: #### 2 4323-8, 3040-3, HCGED, 45119-3 #### [facility] CLIA [id number] [address] [place] [address] [place] AST [Catalytic activity/Vol] 15 U/L Normal 13-35 [facility] Comment on above: Order Comment: Speci men Type: BLOOD SPECIMEN Ordering Facility: [facility] Address: [address] Performed By: #### 2 4323-8, 3040-3, HCGED, #### [facility] CLIA [id number] [address] [place] [address] [place] Bilirubin [Mass/Vol] 1.0 mg/dL Normal 0.2-1.3 [facility] Comment on above: Order Comment: Speci men Type: BLOOD SPECIMEN Ordering Facility: [facility] Address: [address] [place], [place] [address] Performed By: #### 2 4323-8, 3040-3, HCGED, #### [facility] CLIA [id number] [address] [place] [address] [place] Calcium [Mass/Vol] 8.8 mg/dL Normal 8.5-10.2 [facility] Comment on above: Order Comment: Speci men Type: BLOOD SPECIMEN Ordering Facility: [facility] Address: [address] [place], [place] [address] Performed By: #### 2 4323-8, 3040-3, HCGED, #### [facility] CLIA [id number] [place] [address] [place] Chloride [Moles/Vol] 107 mmol/L High 97-105 [facility] Comment on above: Order Comment: Speci men Type: BLOOD SPECIMEN Ordering Facility: [facility] Address: [address] Performed By: #### 2 4323-8, 3040-3, HCGED, 52309-8 #### [facility] CLIA [id number] [address] [place] [address] [place] CO2 [Moles/Vol] 22 mmol/L Normal 22-30 [facility] Comment on above: Order Comment: Speci men Type: BLOOD SPECIMEN Ordering Facility: [facility] Address: [address] [place] [address] Performed By: #### 2 4323-8, 3040-3, HCGED, #### [facility] CLIA [id number] [address] [place] [address] [place] Creatinine [Mass/Vol] 0.70 mg/dL Normal 0.58-0.96 [facility] Comment on above: Order Comment: Speci men Type: BLOOD SPECIMEN Ordering Facility: [facility] Address: [address] [place] [address] Performed By: #### 2 4323-8, 3040-3, HCGED, #### [facility] CLIA [id number] [address] [place] [address] [place] ESTIMATED GLOMERULAR FILTRATION RATE 123 mL/min/1.73m??? Normal >=60 [facility] Comment on above: Order Comment: Speci men Type: BLOOD SPECIMEN Ordering Facility: [facility] Address: [address] [place] [address] Result Comment: Hazel mated Glomerular Filtration Rate [...] By: #### 2 4323-8, 3040-3, HCGED, #### [facility] CLIA [id number] [address] [place] [address] [place] Glucose [Mass/Vol] 97 mg/dL Normal 74-99 [facility] Comment on above: Order Comment: Speci men Type: BLOOD SPECIMEN Ordering Facility: [facility] Address: [address] Result Comment: The [place] Diabetes [employer] (ADA) provides guidance for cutoff [...] Standards of Medical Care in Diabetes 2016, [place] [employer]. Diabetes Care. 2016.39(Suppl 1). Performed By: #### 2 4323-8, 3040-3, HCGED, #### [facility] CLIA [id number] [address] [place] [address] [place] Potassium [Moles/Vol] 3.9 mmol/L Normal 3.7-5.1 [facility] Comment on above: Order Comment: Speci men Type: BLOOD SPECIMEN Ordering Facility: [facility] Address: [address] [address] Performed By: #### 2 4323-8, 3040-3, HCGED, #### [facility] CLIA [id number] [address] [place] [address] [place] Protein [Mass/Vol] 6.9 g/dL Normal 6.3-8.0 [facility] Comment on above: Order Comment: Speci men Type: BLOOD SPECIMEN Ordering Facility: [facility] Address: [address] [place] [address] Performed By: #### 2 4323-8, 3040-3, HCGED, #### [facility] CLIA [id number] [address] [place] [address] [place] Sodium [Moles/Vol] 141 mmol/L Normal 136-144 [facility] Comment on above: Order Comment: Speci men Type: BLOOD SPECIMEN Ordering Facility: [facility] Address: [address] [place] [address] Performed By: #### 2 4323-8, 3040-3, HCGED, #### [facility] CLIA [id number] [address] [place] [address] [facility] Urea nitrogen [Mass/Vol] 13 mg/dL Normal 7-21 [facility] Comment on above: Order Comment: Speci men Type: BLOOD SPECIMEN Ordering Facility: [facility] Address: [address] [place] [address] Performed By: #### 2 4323-8, 3040-3, HCGED, 81717-8 #### [facility] CLIA [id number] [address] [place] [address] [facility] ECG COMPLETEon 05-25-2022 ECG COMPLETE Ventricular Rate : 9 1 BPM Atrial Rate : 92 BPM P-R Interval : 150 ms QRS Duration : 85 ms Q-T Interval : 341 ms QTC Calculation(Bazett) : 420 ms Calculated P Spencer : 33 degrees Calculated R Spencer : 21 degrees Calculated T Spencer : 24 degrees Sinus rhythm Low voltage, precordial leads Otherwise Normal ECG *SEE EPIC NOTE FOR INTERPRETATION Confirmed by KHADAR LUNA MD ([id number]), newspaper editor BE TORRES ([id number]) on 05/26/2022 1:50:52 PM NAME : JOVON LOPEZ PID : [id number] : 1995 Gender : Female Race : ORD : [id number] Procedure Date : May 24 2022 23:05:41 Edit Date : May 26 2022 13:50:57 Diagnosis: Sinus rhythm Low voltage, precordial leads Otherwise Normal ECG *SEE EPIC NOTE FOR INTERPRETATION Confirmed by KHADAR LUNA MD ([id number]), newspaper editor BE TORRES ([id number]) on 05/26/2022 1:50:52 PM Test Reason : Chest Pain Location : 302 : ED AVED-16 Overread By : KHADAR LUNA MD Edited By : BE TORRES Referred By : , Acquired by : [id number], [facility] ED NOTEon 05-25-2022 ED NOTE HNO ID: [id number] Author: Diamond Plata RN Service: Nursing Author [...] ED in no acute distress. [facility] [phone] [facility] ED PROV NOTEon 05-25-2022 ED PROV NOTE HNO ID: [id number] Author: Khadar Luna DO Service: Emergency Medicine [...] which was unremarkable. She followed up with doctor of nursing practice yesterday, was told that her symptoms may [...] Clinical Impr (more content not included)... Normal [facility] Lipase SerPl-cCncon 05-25-20 Lipase [Catalytic activity/Vol] 15 U/L Low 16-61 [facility] Comment on above: Order Comment: Specarti [facility] Type: BLOOD SPECIMEN Ordering Facility: [facility] Address: [address] Performed By: #### 2 4323-8, 3040-3, HCGED, #### [facility] CLIA [id number] [place] [address] [place] Magnesium SerPl-mCncon 05-25 Magnesium [Mass/Vol] 1.9 mg/dL Normal 1.7-2.3 [facility] Comment on above: Order Comment: [facility] Type: BLOOD SPECIMEN Ordering Facility: [facility] Address: [address] [id number] Performed By: #### 2 4323-8, 3040-3, HCGED, #### [facility] CLIA [id number] [place] [address] [place] Urinalysis complete panel (U )on 05-25-2022 Bilirubin Ql (U) Negative Normal Negative [facility] Comment on above: Order Comment: Tad vu Type: URINE SPECIMEN Ordering Facility: [facility] Address: [address] Performed By: #### 2 4356-8 #### [facility] [id number] [address] [place] [address] [place] Clarity (Unsp spec) Clear Normal Clear [facility] Comment on above: Order Comment: Speci men Type: URINE SPECIMEN Ordering Facility: [facility] Address: [address] [address] Performed By: #### 2 4356-8 #### [facility] [id number] [place] [address] [place] Color (U) Yellow Normal Yellow [facility] Comment on above: Order Comment: Speci men Type: URINE SPECIMEN Ordering Facility: [facility] Address: [address] [address] Performed By: #### 2 4356-8 #### [facility] [id number] [address] [place] [address] [place] Epithelial cells LM.HPF (Urine sed) [#/Area] Few Normal [facility] Comment on above: Order Comment: Speci men Type: URINE SPECIMEN Ordering Facility: [facility] Address: [address] [address] Performed By: #### 2 4356-8 #### [facility] [id number] [address] [place] [address] [place] Glucose Test strip (U) [Mass/Vol] Negative Normal Negative [facility] Comment on above: Order Comment: Speci men Type: URINE SPECIMEN Ordering Facility: [facility] Address: [address] [address] Performed By: #### 2 4356-8 #### [facility] [id number] [address] [place] [address] [place] Hemoglobin Ql (U) Negative Normal Negative [facility] Comment on above: Order Comment: Speci men Type: URINE SPECIMEN Ordering Facility: [facility] Address: [address] [address] Performed By: #### 2 4356-8 #### [facility] [place] [id number] [place] [id number] [place] [address] OF [facility] Ketones Ql (U) 3+ Abnormal Trace, Negative [facility] Comment on above: Order Comment: Speci men Type: URINE SPECIMEN Ordering Facility: [facility] Address: [address] [address] Performed By: #### 2 4356-8 #### [facility] [place] [id number] [address] [place] [id number] [place] [address] [place] Leukocyte esterase Test strip Ql (U) 1+ Abnormal Negative [facility] Comment on above: Order Comment: Speci men Type: URINE SPECIMEN Ordering Facility: [facility] Address: [address] [address] Performed By: #### 2 4356-8 #### [facility] [id number] [address] [place] [address] [place] Nitrite Ql (U) Negative Normal Negative [facility] Comment on above: Order Comment: Speci men Type: URINE SPECIMEN Ordering Facility: [facility] Address: [address] [address] Performed By: #### 2 4356-8 #### [facility] [place] [id number] [address] [place] [address] [place] pH (U) 5.5 [pH] Normal 5.0-8.0 [facility] Comment on above: Order Comment: Speci men Type: URINE SPECIMEN Ordering Facility: [facility] Address: [address] [address] Performed By: #### 2 4356-8 #### [facility] [place] [id number] [address] [place], [place] [id number] [facility] Protein (U) [Mass/Vol] Trace Normal Trace , Negative [facility] Comment on above: Order Comment: Speci men Type: URINE SPECIMEN Ordering Facility: [facility] Address: [address] [address] Performed By: #### 2 4356-8 #### [facility] [place] [id number] [place] RBC LM.HPF (Urine sed) [#/Area] 0-3 /HPF Normal 0-3 /HPF [facility] Comment on above: Order Comment: Speci men Type: URINE SPECIMEN Ordering Facility: [facility] Address: [address] [place] [address] Performed By: #### 2 4356-8 #### [facility] [place] [id number] [place] [address] [place] Specific gravity (U) [Rel density] 1.026 Normal 1.005-1.030 [facility] Comment on above: Order Comment: Speci men Type: URINE SPECIMEN Ordering Facility: [facility] Address: [address] [place] [address] Performed By: #### 2 4356-8 #### [facility] [place] [id number] [address] [place] [address] Urobilinogen Ql (U) 0.2 EU/dL Normal 0.2-1.0 EU/dL [facility] Comment on above: Order Comment: Speci men Type: URINE SPECIMEN Ordering Facility: [facility] Address: [address] [place] [address] Performed By: #### 2 4356-8 #### [facility] [place] [id number] [address] [place] [address] [place] WBC LM.HPF (Urine sed) [#/Area] 6-10 /HPF Abnormal 0-5 /HPF [facility] Comment on above: Order Comment: Speci men Type: URINE SPECIMEN Ordering Facility: [facility] Address: [address] [place] [address] Performed By: #### 2 4356-8 #### [facility] [place] [id number] [place] [id number] [place] [address] [place] ED NOTEon 05-24-2022 ED NOTE HNO ID: [id number] Author: Gabby Barone, RN Service: ? Author Type: Registered Nurse Type: ED Notes Filed: 05/24/2022 9:23 PM Note Text: Patient presents with nausea, vomiting, diarrhea, and centralized abdominal pain for about 5 months. States she has lost about 45 pounds and is unable to eat or drink without pain. GABBY BARONE [facility] [phone] [facility] Office Visiton 05-23-2022 Follow-up visit [id number] Jovon Lopez 1995 F Date Provider Department Center 05/23/2022 Kevan-GONZALEZ POWELL [facility] No family history on file Level of Service:33750 [place] OFFICE/OUTPATIENT ESTABLISHED MOD MDM 30-39 MIN () Reason for Visit and Comments: New Patient [632] Fatigue [46] - Had gallbladder removed in 03/2021, Dr. Powell found and fixed leak 04/2021, pt is having major problems with eating and drinking. Was referred back in 2020 [facility] Automated erythrocytes count in urine sediment (number/area)Ordered By: Reggie Maynard on 05-17-2022 RBC Auto (Urine sed) [#/Area] 5-9 [HPF] 0-4 [facility] Automated leukocytes count i n urine sediment (number/area)Ordered By: Reggie Maynard on 05-17-2022 WBC Auto (Urine sed) [#/Area] 50-100 [HPF] 0-4 [facility] Basophils Auto (Bld) [#/Vol] Ordered By: Reggie Maynard on 05-17-2022 Basophils (Bld) [#/Vol] 0.1 10*3/uL 0.0-0.2 [facility] Basophils/100 WBC Auto (Bld) Ordered By: Reggie Maynard on 05-17-2022 Basophils/100 WBC (Bld) 0.7 % . [facility] Bilirubin Test strip Ql (U)O rdered By: Reggie Maynard on 05-17-2022 Bilirubin Ql (U) Negative Negative [facility] Body fluid albumin measureme nt (mass/volume)Ordered By: Reggie Maynard on 05-17-2022 Albumin (Body fld) [Mass/Vol] 3.8 g/dL 3.2-5.5 [facility] Color Auto (U)Ordered By: Hadley red Aleyda on 05-17-2022 Color (U) Yellow Yellow [facility] Creatinine and Glomerular fi ltration rate.predicted panel (S/P/Bld)Ordered By: Reggie Maynard on 05-17-2022 Creatinine [Mass/Vol] 0.64 mg/dL 0.44-1.03 [facility] Direct bilirubin measurement Ordered By: Reggie Maynard on 05-17-2022 Bilirubin.direct [Mass/Vol] 0.1 mg/dL 0.0-0.4 [facility] Eosinophils Auto (Bld) [#/Vo l]Ordered By: Reggie Maynard on 05-17-2022 Eosinophils (Bld) [#/Vol] 0.3 10*3/uL 0.0-0.45 [facility] Eosinophils/100 WBC Auto (Bl d)Ordered By: Reggie Maynard on 05-17-2022 Eosinophils/100 WBC (Bld) 4.2 % . [facility] Erythrocyte distribution wid th Auto (RBC) [Ratio]Ordered By: Reggie Maynard on 05-17-2022 Erythrocyte distribution width (RBC) [Ratio] 13.0 % 11.9-15.3 [facility] Estimated glomerular filtrat ion rate (GFR) non- AmericanOrdered By: Reggie Maynard on 05-17-2022 GFR/1.73 sq M.predicted among non-blacks MDRD (S/P/Bld) [Vol rate/Area] > 60 mL/Min [facility] Globulin Calc (S) [Mass/Vol] Ordered By: Reggie Maynard on 05-17-2022 Globulin (S) [Mass/Vol] 3.3 g/dL [facility] HCG ( test) IA.rapi d Ql (U)Ordered By: Reggie Maynard on 05-17-2022 HCG ( test) Ql (U) Negative [facility] Hematocrit Auto (Bld) [Volum e fraction]Ordered By: Reggie Maynard on 05-17-2022 Hematocrit (Bld) [Volume fraction] 42.9 % 34.0-46.4 [facility] Hemoglobin [Mass/volume] in BloodOrdered By: Reggie Maynard on 05-17-2022 Hemoglobin (Bld) [Mass/Vol] 14.5 g/dL 11.8-15.4 [facility] Ketones Auto test strip (U) [Mass/Vol]Ordered By: Reggie Maynard on 05-17-2022 Ketones (U) [Mass/Vol] Negative Negative [facility] - Chemistry and C hemistry - challengeOrdered By: Reggie Maynard on 05-17-2022 Lipase [Catalytic activity/Vol] 30.0 U/L 22-51 [facility] - UrinalysisOrder ed By: Reggie Maynard on 05-17-2022 Hyaline casts LM Ql (Urine sed) 0-8 [LPF] 0-8 [facility] Leukocytes [#/volume] correc gema for nucleated erythrocytes in Blood by Automated counOrdered By: Reggie Maynard on 05-17-2022 WBC corrected for nucl RBC Auto (Bld) [#/Vol] 7.0 10*3/uL 3.8-11.6 [facility] Lymphocytes Auto (Bld) [#/Vo l]Ordered By: Reggie Maynard on 05-17-2022 Lymphocytes (Bld) [#/Vol] 1.4 10*3/uL 1.00-4.8 [facility] Lymphocytes/100 WBC Auto (Bl d)Ordered By: Reggie Maynard on 05-17-2022 Lymphocytes/100 WBC (Bld) 20.4 % . [facility] MCH Auto (RBC) [Entitic mass ]Ordered By: Reggie Maynard on 05-17-2022 MCH (RBC) [Entitic mass] 29.6 pg 24.7-34.3 [facility] MCHC Auto (RBC) [Mass/Vol]Or dered By: Reggie Maynard on 05-17-2022 MCHC (RBC) [Mass/Vol] 33.7 g/dL 32.0-35.0 [facility] MCV Auto (RBC) [Entitic vol] Ordered By: Reggie Maynard on 05-17-2022 MCV (RBC) [Entitic vol] 87.9 fL 80-100 [facility] Monocyte distribution width [Entitic volume] in Blood by AutomatedOrdered By: Reggie Maynard on 05-17-2022 Monocyte distribution width Auto (Bld) [Entitic vol] 17.93 % 0.00-20.00 [facility] Monocytes Auto (Bld) [#/Vol] Ordered By: Reggie Maynard on 05-17-2022 Monocytes (Bld) [#/Vol] 0.3 10*3/uL 0.0-0.8 [facility] Monocytes/100 WBC Auto (Bld) Ordered By: Reggie Maynard on 05-17-2022 Monocytes/100 WBC (Bld) 4.1 % . [facility] Mucus LM Ql (Urine sed)Order ed By: Reggie Maynard on 05-17-2022 Mucus Ql (Urine sed) 2+ [LPF] [facility] Neutrophils Auto (Bld) [#/Vo l]Ordered By: Reggie Maynard on 05-17-2022 Neutrophils (Bld) [#/Vol] 4.9 10*3/uL 1.8-7.7 [facility] Neutrophils/100 WBC Auto (Bl d)Ordered By: Reggie Maynard on 05-17-2022 Neutrophils/100 WBC (Bld) 70.6 % . [facility] Nitrite Test strip Ql (U)Ord ered By: Reggie Maynard on 05-17-2022 Nitrite Ql (U) Negative Negative [facility] No Panel InformationOrdered By: Reggie Maynard on 05-17-2022 Estimated GFR () > 60 mL/Min [facility] Comment on above: GFR estimated refere nce range: According to KDOQI guidelines, <60 ml/min/1.73m2 is sufficient to diagnose a patient with chronic kidney disease. Pharmacy Creatinine Clearance (Chem 111.16 [facility] Nucleated erythrocytes [Pres ence] in Blood by Automated countOrdered By: Reggie Maynard on 05-17-2022 Nucleated RBC Auto Ql (Bld) 0.2 /100{WBC} 0-0.5 [facility] Platelet mean volume Auto (B ld) [Entitic vol]Ordered By: Reggie Maynard on 05-17-2022 Platelet mean volume (Bld) [Entitic vol] 8.7 fL 6.3-10.7 [facility] Platelets Auto (Bld) [#/Vol] Ordered By: Reggie Maynard on 05-17-2022 Platelets (Bld) [#/Vol] 323 10*3/uL 150-450 [facility] Protein Auto test strip (U) [Mass/Vol]Ordered By: Reggie Maynard on 05-17-2022 Protein (U) [Mass/Vol] Negative Negative [facility] Protein [Mass/volume] in Ser um or PlasmaOrdered By: Reggie Maynard on 05-17-2022 Protein [Mass/Vol] 7.1 g/dL 6.1-7.9 [facility] RBC Auto (Bld) [#/Vol]Ordere d By: Reggie Maynard on 05-17-2022 RBC (Bld) [#/Vol] 4.88 10*6/uL 3.60-5.00 [facility] Serum or plasma alanine rangel otransferase measurement without P-5'-P (enzymatic activiOrdered By: Reggie Maynard on 05-17-2022 ALT No additional P-5'-P [Catalytic activity/Vol] 22 U/L 10-60 [facility] Serum or plasma albumin/glob ulin mass ratioOrdered By: Reggie Maynard on 05-17-2022 Albumin/Globulin [Mass ratio] 1.2 {ratio} [facility] Serum or plasma alkaline ely sphatase measurement (enzymatic activity/volume)Ordered By: Reggie Maynard on 05-17-2022 ALP [Catalytic activity/Vol] 56 U/L 32-92 [facility] Serum or plasma anion gap de terminationOrdered By: Reggie Maynard on 05-17-2022 Anion gap [Moles/Vol] 14.6 mmol/L 6.0-15.0 [facility] Serum or plasma aspartate am inotransferase measurement (enzymatic activity/volume)Ordered By: Reggie Maynard on 05-17-2022 AST [Catalytic activity/Vol] 16 U/L 10-42 [facility] Serum or plasma calcium bryon urement (mass/volume)Ordered By: Reggie Maynard on 05-17-2022 Calcium [Mass/Vol] 8.9 mg/dL 8.2-10.2 [facility] Serum or plasma chloride jamir surement (moles/volume)Ordered By: Reggie Maynard on 05-17-2022 Chloride [Moles/Vol] 106 mmol/L 95-114 [facility] Serum or plasma glucose bryon urement (mass/volume)Ordered By: Reggie Maynard on 05-17-2022 Glucose [Mass/Vol] 94 mg/dL 70-100 [facility] Comment on above: ADA recommended refe rence rangeRandom Glucose Reference Range is dependent on time and content of last meal. Glucose of more than 200 mg/dL in a nonstressed, ambulatory subject supports the diagnosis of Diabetes Mellitus. Serum or plasma non-glucuron idated bilirubin measurement (mass/volume)Ordered By: Reggie Maynard on 05-17-2022 Bilirubin.indirect [Mass/Vol] 0.7 mg/dL [facility] Serum or plasma potassium me asurement (moles/volume)Ordered By: Reggie Maynard on 05-17-2022 Potassium [Moles/Vol] 4.3 mmol/L 3.5-5.1 [facility] Serum or plasma sodium measu rement (moles/volume)Ordered By: Reggie Maynard on 05-17-2022 Sodium [Moles/Vol] 138 mmol/L 136-146 [facility] Serum or plasma total biliru bin measurement (mass/volume)Ordered By: Reggie Maynard on 05-17-2022 Bilirubin [Mass/Vol] 0.8 mg/dL 0.3-1.2 [facility] Serum or plasma total carbon dioxide measurement (moles/volume)Ordered By: Reggie Maynard on 05-17-2022 CO2 [Moles/Vol] 21.7 mmol/L 22.0-30.0 [facility] Serum or plasma urea nitroge n measurement (mass/volume)Ordered By: Reggie Maynard on 05-17-2022 Urea nitrogen [Mass/Vol] 15 mg/dL 9-23 [facility] Specific gravity Auto test s trip (U) [Rel density]Ordered By: Reggie Maynard on 05-17-2022 Specific gravity (U) [Rel density] 1.028 1.001-1.030 [facility] Squamous epithelial cells de tection in urine sediment by light microscopyOrdered By: Reggie Maynard on 05-17-2022 Epithelial cells.squamous LM Ql (Urine sed) 3-4 [HPF] 0-2 [facility] Urine bacteria detection by automated methodOrdered By: Reggie Maynard on 05-17-2022 Bacteria Auto Ql (U) None seen None Seen [facility] Urine clarity by refractomet ry automatedOrdered By: Reggie Maynard on 05-17-2022 Clarity Refractometry automated (U) Clear Clear [facility] Urine glucose measurement by automated test strip (mass/volume)Ordered By: Reggie Maynard on 05-17-2022 Glucose Auto test strip (U) [Mass/Vol] Normal mg/dL Normal [facility] Urine hemoglobin detection b y automated test stripOrdered By: Reggie Maynard on 05-17-2022 Hemoglobin Auto test strip Ql (U) Negative Negative [facility] Urine leukocyte esterase det ection by automated test stripOrdered By: Reggie Maynard on 05-17-2022 Leukocyte esterase Auto test strip Ql (U) 3+ Negative [facility] Urine sediment renal epithel ial cell count by microscopy (number/high power field)Ordered By: Reggie Maynard on 05-17-2022 Epithelial cells.renal LM.HPF (Urine sed) [#/Area] None seen [HPF] 0-1 [facility] Urobilinogen Auto test strip (U) [Mass/Vol]Ordered By: Reggie Maynard on 05-17-2022 Urobilinogen (U) [Mass/Vol] Normal mg/dL Normal [facility] WBC Auto (Bld) [#/Vol]Ordere d By: Reggie Maynard on 05-17-2022 WBC (Bld) [#/Vol] 7.0 10*3/uL 3.8-11.6 [facility] pH Auto test strip (U)Ordere d By: Reggie Maynard on 05-17-2022 pH (U) 5.5 [pH] 5.0-9.0 [facility] AMYLASEon 05-01-2022 Amylase [Catalytic activity/Vol] 61 U/L Normal 25-115 [facility] Comment on above: Performed By: #### L IPA, CMP, ROSS #### [facility] [address] [address] [address] Radha Garcia CBC AUTO DIFFon 05-01-2022 BASO # 0.0 103/ul Normal 0.0-0.1 [facility] Comment on above: Performed By: #### C BC #### [facility] [address] [place] [address] Dr. Radha Garcia Basophils/100 WBC (Bld) 0.4 % Normal 0.2-2.0 [facility] Comment on above: Performed By: #### C BC #### [facility] [address] [place] [address] Dr. Radha Garcia EO # 0.2 103/ul Normal 0.0-0.7 [facility] Comment on above: Performed By: #### C BC #### [facility] [address] [place] [address] Dr. Radha Garcia Eosinophils/100 WBC (Bld) 3.0 % Normal 0.9-7.0 [facility] Comment on above: Performed By: #### C BC #### [facility] [address] [place] [address] Dr. Radha Garcia Erythrocyte distribution width (RBC) [Ratio] 12.4 % Normal 11.0-15.0 [facility] Comment on above: Performed By: #### C BC #### [facility] [address] [place] [address] Dr. Radha Garcia Hematocrit (Bld) [Volume fraction] 40.5 % Normal 36.0-48.0 [facility] Comment on above: Performed By: #### C BC #### [facility] [address] [place] [address] Dr. Radha Garcia Hemoglobin (Bld) [Mass/Vol] 13.7 g/dL Normal 12.0-16.0 [facility] Comment on above: Performed By: #### C BC #### [facility] [address] [place] [address] Dr. Radha Garcia IG # 0.01 10e3/ul Normal 0.00-0.03 [facility] Comment on above: Performed By: #### C BC #### [facility] [address] [place] [address] Dr. Radha Garcia IG % 0.1 % Normal 0.0-0.5 [facility] Comment on above: Performed By: #### C BC #### [facility] [address] [place] [address] Dr. Radha Garcia LYMPH # 2.1 103/ul Normal 1.2-3.8 [facility] Comment on above: Performed By: #### C BC #### [facility] [address] [place] [address] Dr. Radha Garcia Lymphocytes/100 WBC (Bld) 30.7 % Normal 20.5-60.0 [facility] Comment on above: Performed By: #### C BC #### [facility] [address] [place] [address] Dr. Radha Garcia MANUAL DIFF REQ NO Normal [facility] Comment on above: Performed By: #### C BC #### [facility] [address] [place] [address] Dr. Radha Garcia MCH (RBC) [Entitic mass] 29.9 pg Normal 26.7-34.0 [facility] Comment on above: Performed By: #### C BC #### [facility] [address] [place] [address] Dr. Radha Garcia MCHC (RBC) [Mass/Vol] 33.8 g/dL Normal 29.9-35.2 [facility] Comment on above: Performed By: #### C BC #### [facility] [address] [place] [address] Dr. Radha Garcia MCV (RBC) [Entitic vol] 88.4 fL Normal 81.0-99.0 [facility] Comment on above: Performed By: #### C BC #### [facility] [address] [place] [address] Dr. Radha Garcia MONO # 0.5 103/ul Normal 0.3-0.8 [facility] Comment on above: Performed By: #### C BC #### [facility] [address] [place] [address] Dr. Radha Garcia Monocytes/100 WBC (Bld) 6.6 % Normal 1.7-12.0 [facility] Comment on above: Performed By: #### C BC #### [facility] [address] [place] [address] Dr. Radha Garcia NEUT # 4.1 103/ul Normal 1.4-6.5 [facility] Comment on above: Performed By: #### C BC #### [facility] [address] [place] [address] Dr. Radha Garcia Neutrophils/100 WBC (Bld) 59.2 % Normal 43.0-75.0 [facility] Comment on above: Performed By: #### C BC #### [facility] [address] [place] [address] Dr. Radha Garcia Platelet mean volume (Bld) [Entitic vol] 10.6 fL Normal 9.5-13.5 [facility] Comment on above: Performed By: #### C BC #### [facility] [address] [place] [address] Dr. Radha Garcia PLT 263 103/ul Normal 150-450 [facility] Comment on above: Performed By: #### C BC #### [facility] [address] [place] [address] Dr. Radha Garcia RBC 4.58 106/ul Normal 4.20-5.40 [facility] Comment on above: Performed By: #### C BC #### [facility] [address] [place] [address] Dr. Radha Garcia WBC 6.9 103/ul Normal 4.0-11.0 [facility] Comment on above: Performed By: #### C BC #### [facility] [address] [place] [address] ABD/PELV W CONon 05-01-[address] ABD/PELV W CON EXAMINATION: CT ABD/PELV [...] by: RAFA KAPLAN Date: 2022-05-01 03:30 Normal [facility] LIPASEon 05-01-2022 Lipase [Catalytic activity/Vol] 63.0 U/L Critically low 73.0-393.0 [facility] Comment on above: Performed By: #### L IPA CMP, ROSS #### [facility] [address] [place] [address] Dr. Radha Garcia PREG HCG QUALon 05-01-2022 , QUAL Negative Normal NEGATIVE [facility] Comment on above: Performed By: #### C BC #### [facility] [address] [place] [address] Dr. Radha Garcia PROF 14(COMP METB)on 022 Albumin [Mass/Vol] 3.9 g/dL Normal 3.4-5.0 [facility] Comment on above: Performed By: #### L IPA CMP, ROSS #### [facility] [address] [place] [address] Dr. Radha Garcia Albumin/Globulin [Mass ratio] 1.2 {ratio} Normal [facility] Comment on above: Performed By: #### L IPA CMP, ROSS #### [facility] [address] [place] [address] Dr. Radha Garcia ALP [Catalytic activity/Vol] 73 U/L Normal 46-116 [facility] Comment on above: Performed By: #### L IPA, CMP, ROSS #### [facility] [address] [address] [address] Radha Garcia ALT [Catalytic activity/Vol] 13 U/L Critically low 14-59 [facility] Comment on above: Performed By: #### L IPA, CMP, ROSS #### [facility] [address] [address] [address] Radha Garcia Anion gap [Moles/Vol] 9.0 mmol/L Normal [facility] Comment on above: Performed By: #### L IPA, CMP, ROSS #### [facility] [address] [address] [address] Radha Garcia AST [Catalytic activity/Vol] 12 U/L Critically low 15-37 [facility] Comment on above: Performed By: #### L IPA, CMP, ROSS #### [facility] [address] [address] [address] Radha Garcia Bilirubin [Mass/Vol] 0.6 mg/dL Normal 0.2-1.0 [facility] Comment on above: Performed By: #### L IPA, CMP, ROSS #### [facility] [address] [address] [address] Radha Garcia Calcium [Mass/Vol] 8.7 mg/dL Normal 8.5-10.1 [facility] Comment on above: Performed By: #### L IPA, CMP, ROSS #### [facility] [address] [address] [address] Radha Garcia Chloride [Moles/Vol] 106 mmol/L Normal 98-107 [facility] Comment on above: Performed By: #### L IPA, CMP, ROSS #### [facility] [address] [address] [address] Radha Garcia CO2 [Moles/Vol] 26.4 mmol/L Normal 21.0-32.0 [facility] Comment on above: Performed By: #### L IPA, CMP, ROSS #### [facility] [address] [address] [address] Radha Garcia Creatinine [Mass/Vol] 0.71 mg/dL Normal 0.55-1.02 [facility] Comment on above: Performed By: #### L IPA, CMP, ROSS #### [facility] [address] [address] [address] Radha Garcia EGFR-AF GUAMANIAN >60 Normal >=60 [facility] Comment on above: Performed By: #### L IPA, CMP, ROSS #### [facility] [address] [address] [address] Radha Garcia EGFR-NON AF GUAMANIAN >60 Normal >=60 [facility] Comment on above: Performed By: #### L IPA, CMP, ROSS #### [facility] [address] [address] [address] Radha Garcia Globulin (S) [Mass/Vol] 3.3 g/dL Normal [facility] Comment on above: Performed By: #### L IPA, CMP, ROSS #### [facility] [address] [address] [address] Radha Garcia Glucose [Mass/Vol] 89 mg/dL Normal 74-106 [facility] Comment on above: Performed By: #### L IPA, CMP, ROSS #### [facility] [address] [address] [address] Radha Garcia Potassium [Moles/Vol] 3.4 mmol/L Critically low 3.5-5.1 [facility] Comment on above: Performed By: #### L IPA, CMP, ROSS #### [facility] [address] [address] [address] Radha Garcia Protein [Mass/Vol] 7.2 g/dL Normal 6.4-8.2 [facility] Comment on above: Performed By: #### L IPA, CMP, ROSS #### [facility] [address] [address] [address] Radha Garcia Sodium [Moles/Vol] 138 mmol/L Normal 136-145 [facility] Comment on above: Performed By: #### L IPA, CMP, ROSS #### [facility] [address] [place], [place] [address] Dr. Radha Garcia Urea nitrogen [Mass/Vol] 12.0 mg/dL Normal 7.0-18.0 [facility] Comment on above: Performed By: #### L IPA, CMP, ROSS #### [facility] [address] [place], [place] [address] Dr. Radha Garcia Urea nitrogen/Creatinine [Mass ratio] 16.9 mg/mg Normal [facility] Comment on above: Performed By: #### L IPA, CMP, ROSS #### [facility] [address] [place], [place] [address] Dr. Radha Garcia Q - DRUG TOX MONITORING CONFIRMATION,URINEon 05-23-2021 Amphetamines Negative Normal <500 [facility] Counselor Comment on above: Order Comment: [facility] performed at: [facility], [facility] [address], [address] [place] [address], [address] [place] [address], Resource Coordinator: Shamar Colunga MD [facility] Collection Date/Time: [facility] Results Received Date/Time: [facility] Reported Date/Time: FASTING: NO Performed By: #### 9 1486 #### [facility] [address] [place] [address] Barbiturates Negative Normal <300 [facility] Comment on above: Order Comment: [facility] performed at: [facility], [address], [address] [place] [address], [address] [place] [address], Resource Coordinator: Shamar Colunga MD [facility] Date/Time: [facility] Results Received Date/Time: [facility] Reported Date/Time: FASTING: NO Performed By: #### 9 1486 #### [facility] [address] [place] [address] Benzodiazepines Negative Normal <100 [facility] Comment on above: Order Comment: [facility] performed at: [facility], [address] [place], [place], [address] [place] [address], Resource Coordinator: Shamar Colunga MD [facility] Date/Time: [facility] Results Received Date/Time: [facility] Reported Date/Time: FASTING: NO Performed By: #### 9 1486 #### [facility] [address] [place] [address] Cocaine Metabolite Negative Normal <150 [facility] Comment on above: Order Comment: [facility] performed at: [employer], [employer] [facility], [address] [place], [place], [address] [place] [address], Resource Coordinator: Shamar Colunga MD [facility] Date/Time: [facility] Results Received Date/Time: [facility] Reported Date/Time: FASTING: NO Performed By: #### 9 1486 #### [facility] [address] [place] [address] COMMENT SEE NOTE Normal [facility] Comment on above: Order Comment: [facility] performed at: [employer], [employer] [facility], [address] [facility], [address] [place], [address] [place] [address], Resource Coordinator: Shamar Colunga MD [facility] Collection Date/Time: [facility] Results Received Date/Time: [facility] Reported Date/Time: FASTING: NO Result Comment: See Note 2 Note 1 This test was developed and its analytical performance characteristics have been determined by [employer]. It has not been cleared or approved [...] interpreting these drug results, please contact a [employer] Toxicology Specialist: [phone] ( [phone] M-F, 8am-6pm EST. Performed By: #### 9 [id number] #### [facility] [address] [place] [address] Marijuana Metabolite 73 ng/mL High <5 [facility] Specialist Comment on above: Order Comment: [facility] performed at: [employer], [employer] [facility], [address] [place] [address], [address] [place] [address], [id number], Resource Coordinator: Shamar Colunga MD [facility] Date/Time: [facility] Results Received Date/Time: [facility] Reported Date/Time: FASTING: NO Result Comment: See Note 1 Performed By: #### 9 1486 #### [facility] [address] [place] [address] Marijuana Metabolite 20 Positive Abnormal <20 [facility] Specialist Comment on above: Order Comment: [facility] performed at: [employer], [employer] [facility], [address] [place] [address], [address] [place] [address], [address] [place] [address], Resource Coordinator: Shamar Colunga MD [facility] Date/Time: [facility] Results Received Date/Time: [facility] Reported Date/Time: FASTING: NO Performed By: #### 9 1486 #### [facility] [address] [place] [address] Methadone Metabolite Negative Normal <100 [facility] Specialist Comment on above: Order Comment: [facility] performed at: [facility], [address] [place] [address], [address] [place] [address], [address] [place] [address], Resource Coordinator: Shamar Colunga MD [facility] Date/Time: [facility] Results Received Date/Time: [facility] Reported Date/Time: FASTING: NO Performed By: #### 9 1486 #### [facility] [address] [place] [address] Opiates Negative Normal <100 [facility] Specialist Comment on above: Order Comment: [facility] performed at: [employer], [employer] [facility], [address] [place] [address], [address] [place] [address], [address] [place] [address], Resource Coordinator: Shamar Colunga MD [facility] Date/Time: [facility] Results Received Date/Time: [facility] Reported Date/Time: FASTING: NO Performed By: #### 9 1486 #### [facility] [address] [place] [address] Oxycodone Negative Normal <100 [facility] Specialist Comment on above: Order Comment: [facility] performed at: [employer], [employer] [facility], [address], [address] [place] [address], [address] [place] [address], Resource Coordinator: Shamar Colunga MD [facility] Date/Time: [facility] Results Received Date/Time: [facility] Reported Date/Time: FASTING: NO Performed By: #### 9 1486 #### [facility] [address] [place] [address] Phencyclidine Negative Normal <25 [facility] Specialist Comment on above: Order Comment: [facility] performed at: [employer], [employer] [facility], [address], [address] [place] [address], [address] [place] [address], Resource Coordinator: Shamar Colunga MD [facility] Date/Time: [facility] Results Received Date/Time: [facility] Reported Date/Time: FASTING: NO Performed By: #### 9 1486 #### [facility] [address] [place] [address] ERCPon 05-01-2021 ERCP [facility] Department of Radiology [address] [place] [id number] Patient Name: JOVON LOPEZ : 1995 [...] procedure. Electronically signed: Neris Guevara. Transcribed by: [email or web address], User Resident: Electronically Signed by: NERIS GUEVARA @ 05/03/2021 08:12 AM Normal [facility] Comment on above: Order Comment: Evalu ate Endoscopy Reporton Endoscopy Report MR#: [id number] [facility] Pt. Name: Jovon Lopez Surgery Date: 05/01/2021 Room #: M7A Date of : 1995 PROCEDURE NOTE ATTENDING: Gonzalez Powell M.D. SURGICAL SUPPLIES STERILIZER: Te Bacon MD. (Advanced Endoscopy Gastroenterology Fellow). [...] Bacon MD Date Trans: 05/01/2021 06:34 P/mmo [id number] Normal [facility] POC SARS COV2 ANTIGEN NEGATI VEon 05-01-2021 POC SARS COV2 ANTIGEN NEG Negative Normal NEGATIVE [facility] Comment on above: Result [...] signs and symptoms consistent with COVID-19. The [employer] COVID-19 Ag Card is a lateral flow [...] Accreditation. Performed By: #### 3 1977 #### [facility] [address] [facility]. [address] POC URINE PREGNANCYon 2020 Beta HCG ( test) Ql (U) Negative Normal NEGATIVE [facility] Comment on above: Result Comment: Perf ormed in PACU Performed By: #### 8 [id number] #### [facility] [address] [place] [address], [facility] Hemoglobinon 02-14-2021 Hemoglobin (Bld) [Mass/Vol] 11.4 g/dL Low 11.9-15.1 [facility] Comment on above: Performed By: #### H GB #### [address] [place], [place] [id number] Tower [employer] Operator: Ilir Prasad MD HemoglobinOrdered By: Cherelle Mera on 02-14-2021 Hemoglobin.gastrointest inal spec 1 Ql (Stl) 11.4 g/dL Low 11.9 - 15.1 g/dL [facility] [employer] Phone: Interpretation and review of laboratory results Abnormal [facility] [employer] Phone: [facility] [employer] Phone: OPERATIVE REPORTon OPERATIVE REPORT [address] [address] OPERATIVE REPORT PATIENT NAME: JOVON LOPEZ : 1995 MED REC NO: [id number] ROOM[facility] ACCOUNT NO: [id number] ADMIT DATE: 02/12/2021 PROVIDER: Fernando Hooks MD DATE OF PROCEDURE: 02/13/2021 PREOPERATIVE DIAGNOSES: at term, failed induction of labor, and intolerance to labor with late decelerations and brief episodes of bradycardia. SURGICAL PROCEDURE: Primary section, low transverse uterine segment. ANESTHESIA: Spinal. [employer] SAL[employer] REPRESENTATIVE: Nash Mera. ESTIMATED BLOOD LOSS: 800 mL. [...] then a running imbricating interlocking fashion. A [id number] suture was placed on the right lateral [...] good condition. FERNANDO HOOKS MD [id number] Doc#: [id number] CC: Nash Mera [facility] TYPE AND SCREENOrdered By: Rosie Hooks on 02-13-2021 ABO/Rh Positive [facility] Work Phone: Arm Band Number [id number] [facility] Work Phone: Expiration Date 02/16/2021,2359 [facility] Work Phone: [facility] Work Phone: Type + Screenon 02-13-2021 Type + Screen Sample Expiration 02/16/2021,2359 Arm Band Number [id number] ABO/Rh(D) A POSITIVE Antibody Screen NEGATIVE Normal [facility] Comment on above: Performed By: #### T YS #### [facility] [address] [place] [address] Tower Switch Operator: Ilir Prasad MD CBC auto differentialOrdered By: Nash Mera on 02-12-2021 Absolute Eos # 0.11 [facility] Work Phone: Absolute Immature Granulocyte 0.05 [facility] Work Phone: Absolute Lymph # 1.67 [facility] Work Phone: Absolute [place] # 0.44 [facility] Work Phone: Basophils (Bld) [#/Vol] 10*3/uL M [facility] Work Phone: Basophils/100 WBC (Bld) 0 % 0 - 2 % M [facility] Work Phone: Differential Type NOT REPORTED [facility] Work Phone: Eosinophils/100 WBC (Bld) 1 % 1 - 4 % [facility] [employer] Phone: Hematocrit (Bld) [Volume fraction] 33.3 % Low 36.3 - 47.1 % [facility] [employer] Phone: Hemoglobin.gastrointest inal spec 1 Ql (Stl) 10.7 g/dL Low 11.9 - 15.1 g/dL [facility] Work Phone: Immature granulocytes/100 WBC (Bld) 1 % High 0 [employer] Phone: Interpretation and review of laboratory results Abnormal [employer] Phone: Lymphocytes/100 WBC (Bld) 20 % Low 24 - 43 % [employer] Phone: MCH (RBC) [Entitic mass] 28.5 pg 25.2 - 33.5 pg [employer] Phone: MCHC (RBC) [Mass/Vol] 32.1 g/dL 28.4 - 34.8 g/dL [employer] Phone: MCV (RBC) [Entitic vol] 88.6 fL 82.6 - 102.9 fL [employer] Phone: Monocytes/100 WBC (Bld) 5 % 3 - 12 % M [employer] Phone: NRBC Automated 0.0 0.0 per 100 WBC [employer] Phone: Platelet distribution width (Bld) [Ratio] 13.9 % 11.8 - 14.4 % [employer] Phone: Platelet Estimate NOT REPORTED [employer] Phone: Platelet mean volume (Bld) [Entitic vol] 11.5 fL 8.1 - 13.5 fL [employer] Phone: Platelets (Bld) [#/Vol] 229 10*3/uL [employer] Phone: RBC (Bld) [#/Vol] 3.76 10*6/uL Low 3.95 - 5.1 1 m/uL [employer] Phone: RBC (Bld) [#/Vol] NOT REPORTED [employer] Phone: Segmented neutrophils/100 WBC (Bld) 73 % High 36 - 65 % [employer] Phone: Segs Absolute 5.99 [facility] Work Phone: WBC (Bld) [#/Vol] 8.3 10*3/uL [facility] Work Phone: WBC (Bld) [#/Vol] NOT REPORTED [facility] Work Phone: [facility] Work Phone: CBC with Diffon 02-12-2021 Abs. Basophil <0.03 Normal 0.00-0.[address] [facility] Comment on above: Performed By: #### C DP #### [address] [place] [address] Tower [employer] Operator: Ilir Prasad MD Abs.Imm.Granulocyte 0.05 k/uL Normal 0.00-0.30 [facility] Comment on above: Performed By: #### C DP #### [address] [place], [facility] Tower [employer] Operator: Ilir Prasad MD Abs.Neutrophil (Seg) 5.99 k/uL Normal 1.50-8.10 [facility] Comment on above: Performed By: #### C DP #### [address] [place] [address] Tower Switch Operator: Ilir Prasad MD Basophils/100 WBC (Bld) 0 % Normal 0-2 [facility] Comment on above: Performed By: #### C DP #### [address] [place] [address] Tower Switch Operator: Ilir Prasad MD Eosinophils (Bld) [#/Vol] 0.11 10*3/uL Normal 0.00-0.44 [facility] Comment on above: Performed By: #### C DP #### [address] [place], [place] [id number] Tower [employer] Operator: Ilir Prasad MD Eosinophils/100 WBC (Bld) 1 % Normal 1-4 [facility] Comment on above: Performed By: #### C DP #### [facility] [address] [place], [place] [address] Tower Switch Operator: Ilir Prasad MD Erythrocyte distribution width (RBC) [Ratio] 13.9 % Normal 11.8-14.4 [facility] Comment on above: Performed By: #### C DP #### [facility] [address] [place], [place] [address] Tower Switch Operator: Ilir Prasad MD Hematocrit (Bld) [Volume fraction] 33.3 % Low 36.3-47.1 [facility] Comment on above: Performed By: #### C DP #### [address] [place], [facility] Tower Switch Operator: Ilir Prasad MD Hemoglobin (Bld) [Mass/Vol] 10.7 g/dL Low 11.9-15.1 [facility] Comment on above: Performed By: #### C DP #### [address] [place], [place] [address] Tower Switch Operator: Ilir Prasad MD Immature granulocytes/100 WBC (Bld) 1 % High 0 [facility] Comment on above: Performed By: #### C DP #### [facility] [address] [place] [address] Dr[place], [place] [address] Tower Switch Operator: Ilir Prasad MD Lymphocytes (Bld) [#/Vol] 1.67 10*3/uL Normal 1.10-3.70 [facility] Comment on above: Performed By: #### C DP #### [facility] [address] [place] [address] [place] [address] Tower Switch Operator: Ilir Prasad MD Lymphocytes/100 WBC (Bld) 20 % Low 24-43 [facility] Comment on above: Performed By: #### C DP #### [facility] [address] [place] [address] Dr[address] [place], [place] [id number] Tower Switch Operator: Ilir Prasad MD MCH (RBC) [Entitic mass] 28.5 pg Normal 25.2-33.5 [facility] Comment on above: Performed By: #### C DP #### [address] [place] [id number] Tower [employer] Operator: Ilir Prasad MD MCHC (RBC) [Mass/Vol] 32.1 g/dL Normal 28.4-34.8 [facility] Comment on above: Performed By: #### C DP #### [address] [place] [id number] Tower Switch Operator: Ilir Prasad MD MCV (RBC) [Entitic vol] 88.6 fL Normal 82.6-102.9 [facility] Comment on above: Performed By: #### C DP #### [address] [place], [facility] Tower Switch Operator: Ilir Prasad MD Monocytes (Bld) [#/Vol] 0.44 10*3/uL Normal 0.10-1.20 [facility] Comment on above: Performed By: #### C DP #### [address] [place], [facility] Tower Switch Operator: Ilir Prasad MD Monocytes/100 WBC (Bld) 5 % Normal 3-12 [facility] Comment on above: Performed By: #### C DP #### [facility] [address] [place] [address] Dr[address] [place], [facility] Tower Switch Operator: Ilir Prasad MD Neutrophil (Seg) 73 % High 36-65 [facility] Comment on above: Performed By: #### C DP #### [facility] [address] [place] [address] Dr[address] [place], [place] [id number] Tower [employer] Operator: Ilir Prasad MD NRBC Automated 0.0 per 100 WBC Normal 0.0 [facility] Comment on above: Performed By: #### C DP #### [facility] [address] [place], [facility] Tower Switch Operator: Ilir Prasad MD Platelet mean volume (Bld) [Entitic vol] 11.5 fL Normal 8.1-13.5 [facility] Comment on above: Performed By: #### C DP #### [facility] [address] [place], [facility] Tower Switch Operator: Ilir Prasad MD Platelets (Bld) [#/Vol] 229 10*3/uL Normal 138-453 [facility] Comment on above: Performed By: #### C DP #### [address] [place], [facility] Tower Switch Operator: Ilir Prasad MD RBC (Bld) [#/Vol] 3.76 10*6/uL Low 3.95-5.11 [facility] Comment on above: Performed By: #### C DP #### [address] [place], [facility] Tower Switch Operator: Ilir Prasad MD WBC (Bld) [#/Vol] 8.3 10*3/uL Normal 3.5-11.3 [facility] Comment on above: Performed By: #### C DP #### [address] [place], [facility] Tower [employer] Operator: Ilir Prasad MD Auto Diff Performed NOT REPORTED Normal [facility] Comment on above: Performed By: #### C DP #### [address] [place], [facility] Tower Switch Operator: Ilir Prasad MD Platelet Estimate NOT REPORTED Normal [facility] Comment on above: Performed By: #### C DP #### [address] [place], [facility] Tower Switch Operator: Ilir Prasad MD RBC morphology finding Nom (Bld) NOT REPORTED Normal [facility] Comment on above: Performed By: #### C DP #### [facility] [address] [place] [address] Tower Switch Operator: Ilir Prasad MD WBC Morphology NOT REPORTED Normal [facility] Comment on above: Performed By: #### C DP #### [facility] [address] [place] [address] Tower Switch Operator: Ilir Prasad MD DRUG SCREEN MULTI URINEOrder ed By: Nash Mera on 02-12-2021 Amphetamine Screen, Ur Negative NEGATIVE [facility] Work Phone: Barbiturate Screen, Ur Negative NEGATIVE [facility] Work Phone: Benzodiazepine Screen, Urine Negative NEGATIVE [facility] Work Phone: Buprenorphine Urine Negative NEGATIVE [facility] Work Phone: Cannabinoid Scrn, Ur Negative NEGATIVE [facility] Work Phone: Cocaine Metabolite, Urine Negative NEGATIVE [facility] Work Phone: MDMA, Urine NOT REPORTED [facility]IVE [facility] Work Phone: Methadone Screen, Urine Negative NEGATIVE [facility] Work Phone: Methamphetamine, Urine Negative NEGATIVE [facility] Work Phone: Opiates, Urine Negative NEGATIVE [facility] Work Phone: Oxycodone Screen, Ur Negative NEGATIVE [facility] Work Phone: Phencyclidine, Urine Negative NEGATIVE [facility] Work Phone: Propoxyphene, Urine Negative NEGATIVE [facility] Work Phone: Test Information NOT REPORTED [facility] Work Phone: Tricyclic Antidepressants, Urine Negative NEGATIVE [facility] Work Phone: Comment on above: Drug screen results are to be used for medical purposes only. All positive results are unconfirmed. Testing for employment or legal uses should be sent to a reference laboratory for confirmation. [facility] Work Phone: Drug Scr, Abuse, Uron 2020 Amphetamine(s),Ur Negative Normal NEG [facility] Comment on above: Performed By: #### D AU #### [facility] [address] [place] [address] Dr[address] [place], [place] [id number] Tower [employer] Operator: Ilir Prasad MD Barbiturate(s),Ur Negative Normal NEG [facility] Comment on above: Performed By: #### D AU #### [address] [place], [place] [id number] Tower [employer] Operator: Ilir Prasad MD Benzodiazepine(s) Negative Normal NEG [facility] Comment on above: Performed By: #### D AU #### [facility] [address] [place] [address] [place] [address] Tower Switch Operator: Ilir Prasad MD Buprenorphrine, Ur Negative Normal [facility] Comment on above: Performed By: #### D AU #### [facility] [address] [place] [address] [place] [address] Tower Switch Operator: Ilir Prasad MD Cannabinoid(s),Ur Negative Normal NEG [facility] Comment on above: Performed By: #### D AU #### [facility] [address] [place] [address] [place] [address] Tower Switch Operator: Ilir Prasad MD Cocaine Metabolite Negative Normal NEG [facility] Comment on above: Performed By: #### D AU #### [facility] [address] [place] [address] [place] [place], [place] [id number] Tower Switch Operator: Ilir Prasad MD Methadone Ql (U) Negative Normal NEG [facility] Comment on above: Performed By: #### D AU #### [facility] [address] [place], [place] [id number] Tower Switch Operator: Ilir Prasad MD Methamphetamine, Ur Negative Normal NEG [facility] Comment on above: Performed By: #### D AU #### [facility] [address] [place], [place] [id number] Tower Switch Operator: Ilir Prasad MD Opiate(s), Ur Negative Normal NEG [facility] Comment on above: Performed By: #### D AU #### [facility] [address] [place] [address] Tower Switch Operator: Ilir Prasad MD Oxycodone, Urine Negative Normal NEG [facility] Comment on above: Performed By: #### D AU #### [facility] [address] [place], [place] [id number] Tower Switch Operator: Ilir Prasad MD Phencyclidine, Ur Negative Normal NEG [facility] Comment on above: Performed By: #### D AU #### [facility] [address] [place], [place] [id number] Tower Switch Operator: Ilir Prasad MD Propoxyphene,Urine Negative Normal NEG [facility] Comment on above: Performed By: #### D AU #### [facility] [address] [place], [place] [id number] Tower Switch Operator: Ilir Prasad MD Tricyclic antidepressants Screen Ql (U) Negative Normal [facility] Comment on above: Result Comment: Drug screen results are to be used for medical purposes only. All positive results are unconfirmed. Testing for employment or legal uses should be sent to a reference laboratory for confirmation. Performed By: #### D AU #### [facility] [address] [place], [place] [id number] Tower Switch Operator: Ilir Prasad MD Interpretive Info NOT REPORTED [facility] Comment on above: Performed By: #### D AU #### [facility] [address] [place] [address] Tower Switch Operator: Ilir Prasad MD MDMA, Urine NOT REPORTED Normal NEG [facility] Comment on above: Performed By: #### D AU #### [facility] [address] [place] [address] Tower Switch Operator: Ilir Prasad MD GBS, External ResultOrdered By: Historical Provider on 01-29-2021 GBS, External Result Negative [email or web address] Phone[email or web address]: ABO, External ResultOrdered By: Historical Provider on 08-15-2020 ABO, External Result [facility] Phone: HIV, External ResultOrdered By: Historical Provider on 08-15-2020 HIV, External Result Non-Reactive [facility] Phone: Hepatitis B, External Result Ordered By: Historical Provider on 08-15-2020 Hep B, External Result Negative [facility] Phone: No Panel InformationOrdered By: Historical Provider on 08-15-2020 [facility] Phone: PROFILE IOrdered By : Historical Provider on 08-15-2020 ABO/Rh Positive [facility] Phone: Rh Factor, External ResultOr dered By: Historical Provider on 08-15-2020 Rh Factor, External Result Positive [facility] Phone: Hepatitis C Antibody, Roller Embosser al ResultOrdered By: Historical Provider on 07-26-2020 Hepatitis C Antibody, External Result Negative [facility] Phone: No Panel InformationOrdered By: Historical Provider on 07-26-2020 [facility] Phone: RPR, External LabOrdered By: Historical Provider on 07-26-2020 RPR, External Result Non-Reactive [facility] Phone: Vag Pathogens DNAon 08-22-19 19 Hazel vag DNA Probe Positive Critically abnormal Negative for Gardnerella vaginalis by DNA Probe [facility] Comment on above: Result Comment: This is suggestive, but not diagnostic of bacterial vaginosis, results should be interpreted in conjunction with other data such as pH, amine odor, clue cells and vaginal discharge characteristics. Performed By: #### V AGDNA #### [facility] [employer] [address] [place] [address] Protein mass conc Negative Normal Negative f or Lucía species by DNA Probe [facility] Comment on above: Performed By: #### V AGDNA #### [facility] [employer] [address] [place] [id number] Trich vag DNA Probe Negative Normal Negative for Trichomonas vaginalis by DNA Probe [facility] Comment on above: Performed By: #### V AGDNA #### [facility] [employer] [address] [place] [id number] CNOVon 08-20-2018 CNOV Office Visit (AVONGY ) JOVON LOPEZ ([id number]) 1995 F CHT Date Time Provider Department 08/20/18 2:00 PM BRIGITTE MAIN (GILMER) GISELLA During your visit today, we recorded the following information about you: Blood pressure Weight Height Last Period 110/70 60.3 kg 1.575 m 07/20/18 Kaycee Horvath MA 08/20/2018 2:17 PM Signed Yeast Washer offered: Patient declines. Brigitte Main APRN.CNP 08/20/2018 [...] external genitalia normal, normal Bartholin's glands, urethra, [place]'s glands, no vulvar lesions, no cervical lesions, good vaginal support, normal appearing perineal body and perianal region, moderate amount yellow discharge noted BIMANUAL: uterus normal size, shape and consistency, no adnexal masses and non-tender RECTOVAGINAL: deferred. 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 Referring Provider: SELF [200] Allergies As of Date: 08/20/2018 Noted Allergy Reaction PENICILLINS 08/20/2018 16 - Unknown Comments: Happened when young.. 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 [50] Cmt: Vaginal pain and discharge [...] test, unconfirmed [Z32.00] Order(s):PAP FLUID CERVICAL SCREENING [7671043] Order #: [id number] VAGINAL PATHOGENS DNA PROBES [SQVAGDNA] Order #: [id number] GC/CHLAMYDIA DNA DET [SQGCCAMP] Order #: [id number] TSH BLD [SQTSH] Order #: [id number] PROLACTIN BLD [SQPROL] Order #: [id number] TESTOSTERONE, FREE AND TOTAL [SQFTESTO] Order #: [id number] HGB A1C [IBNQV4D] Order #: [id number] DHEA-S BLD [SQDHEAS] Order #: [id number] FSH BLD [SQFSH] Order #: [id number] INSERT INTRAUTERINE DEVICE [[id number]] Order #: [id number] HCG QUAL UR B/O [[id number]] Order #: [id number] Prescriptions as of 08/20/2018 Sig: HYDROCODONE 5 MG-ACETAMINOPHE* Take 1 tablet by mouth every * Problem List As Of Date: 08/20/2018 (None) Visit Notes: >> Kaycee Horvath MA ThuAug 20, 2018 2:11 PM Status: Signed Yeast Washer offered: Patient declines. >> Kaycee Horvath MA ThuAug 20, 2018 4:38 PM Status: Signed Negative upt. Encounter Status:Closed by BRIGITTE MAIN CNP on 08/20/18 Normal [facility] CYTOLOGYon 08-20-2018 CYTOLOGY Specimen originated from [facility] Specimen #: [id number] Submitting Physician: BRIGITTE YOUNG CNP SPECIMEN SUBMITTED [...] from every slide are reviewed by a leaf stripper. 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 CLIA Number: [id number] The Pap Smear is a screening test for cervical cancer. False negative results occur with all screening tests, emphasizing the need for rescreening at recommended intervals, and clinical correlation. Normal [facility] GC/Chlamydia Amplifon 2018 Chlamydia Amplif Positive Critically abnormal [facility] Comment on above: Result Comment: In l ow prevalence populations, the likelihood of a false positive may be higher than a true positive. Retesting by another method may be appropriate for patients who lack risk factors or clinical signs and symptoms consistent with infection. Performed By: #### G CCT #### [place] [address] GC Amplification Negative Normal [facility] Comment on above: Performed By: #### G CCT #### [place] [address] GC/Chlam Amp Source Cervix Normal [facility] Comment on above: Performed By: #### G CCT #### [place] [address] PROGRESSon 08-20-2018 Protein mass conc HNO ID: [id number] Author: Brigitte SolimanClinical Leader) Tucker'Young Service: ? Author Type: Nurse Practitioner Type: [...] external genitalia normal, normal Bartholin's glands, urethra, [place]'s glands, no vulvar lesions, no cervical lesions, good vaginal support, normal appearing perineal body and perianal region, moderate amount yellow discharge noted BIMANUAL: uterus normal size, shape and consistency, no adnexal masses and non-tender RECTOVAGINAL: deferred. 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 Breast cancer screening Menorrhagia with irreg [...] for insertion pending ins coverage Brigitte Main APRN.PHOTOVOLTAIC TECHNICIAN Normal [facility] Vital Signs Date Time Vital Sign Value Performing Clinician Facility 03-01-2024 15:46-0400 Body mass index (BMI) [Ratio] 25.61 kg/m2 Nash Mera CNM Work Phone: [facility] 03-01-2024 15:46-0400 Body weight 63.5 kg Nash YOU Work Phone: [facility] 03-01-2024 15:46-0400 Diastolic blood pressure 70 mm[Hg] Nash Mera CN Work Phone: [facility] 03-01-2024 15:46-0400 Systolic blood pressure 110 mm[Hg] Nash Mera CN Work Phone: [facility] 06-30-2023 10:20-0500 Body height 157.48 cm Luis Leung Other [facility] Other 06-30-2023 10:20-0500 Body mass index (BMI) [Ratio] 22.49 kg/m2 Luis Xochitl Other [facility] Other 06-30-2023 10:20-0500 Body weight 55.79 kg Luis Xochitl Other [facility] Other 06-30-2023 10:20-0500 Diastolic blood pressure 65 mm[Hg] Luis Xochitl Other [facility] Other 06-30-2023 10:20-0500 Systolic blood pressure 115 mm[Hg] Luis Leung Other [facility] Other 05-17-2022 15:15-0500 Diastolic blood pressure 59 mm[Hg] PHYSICIAN NO [facility] 05-17-2022 15:15-0500 Heart rate 67 /min PHYSICIAN NO [facility] 05-17-2022 15:15-0500 Respiratory rate 15 /min PHYSICIAN NO [facility] 05-17-2022 15:15-0500 SaO2% (BldA) [Mass fraction] 99 % PHYSICIAN NO [facility] 05-17-2022 15:15-0500 Systolic blood pressure 111 mm[Hg] PHYSICIAN NO [facility] 05-17-2022 11:45-0500 Body height 160.02 cm PHYSICIAN NO [facility] 05-17-2022 11:45-0500 Body temperature 98 [degF] PHYSICIAN NO [facility] 05-17-2022 11:45-0500 Body weight 58 kg PHYSICIAN NO [facility] 02-15-2021 07:23-0400 Body temperature 98.1 [degF] Nash Mera WIRE STEWARD - CNM Work Phone: [employer] Work Phone: 02-15-2021 07:23-0400 Diastolic blood pressure 59 mm[Hg] Nash Mera WIRE STEWARD - CNM Work Phone: [facility] Work Phone: 02-15-2021 07:23-0400 Heart rate 71 /min Nash Mera WIRE STEWARD - CNM Work Phone: [facility] Work Phone: 02-15-2021 07:23-0400 Respiratory rate 16 /min Nash Mera WIRE STEWARD - CNM Work Phone: [facility] Work Phone: 02-15-2021 07:23-0400 Systolic blood pressure 98 mm[Hg] Nash Mera WIRE STEWARD - CNM Work Phone: [facility] Work Phone: 02-13-2021 20:25-0400 SaO2% (BldA) [Mass fraction] 97 % Nash Mera WIRE STEWARD - CNM Work Phone: [employer] Work Phone: 02-12-2021 15:50-0400 Body height 157.5 cm Nash Mera WIRE STEWARD - CNM Work Phone: [employer] Work Phone: 02-12-2021 15:50-0400 Body mass index (BMI) [Ratio] 33.29 kg/m2 Nash Mera WIRE STEWARD - CNM Work Phone: [employer] Work Phone: 02-12-2021 15:50-0400 Body weight 82.56 kg Nash Mera WIRE STEWARD - CNM Work Phone: [employer] Work Phone: Encounters Encounter Date Encounter Type Care Provider Facility Start: 03-02-2024 End: 03-02-2024 Telephone encounter Nash Boltono CNM Work Phone: [facility] Start: 03-01-2024 End: 03-01-2024 ambulatory NASH L FLORO Not Available Start: 03-01-2024 End: 03-01-2024 Office outpatient visit 15 minutes Nash Marvel Boltono CNM Work Phone: [facility] Comment on above: Post depressi on (CMS/HCC) (Primary Dx); Vaginal discharge Start: 02-26-2024 End: 02-26-2024 Telephone encounter Nash Marvel Boltono CNM Work Phone: [facility] Start: 02-05-2024 End: 02-05-2024 Telephone encounter Nash Marvel Boltono CNM Work Phone: [facility] Start: 12-30-2023 End: 12-30-2023 ambulatory NASH L [...] 06-30-2023 End: 06-30-2023 ambulatory Luis Leung Other [facility] Other Start: 06-30-2023 Office outpatient visit 15 minutes Luis Leung [facility] Start: 06-30-2023 Telephone encounter Luis Crews [facility] Start: 06-04-2023 End: 06-04-2023 ambulatory NASH L FLORO Not Available Start: 05-14-2023 End: 05-14-2023 ambulatory NASH L FLORO Not Available Start: 04-21-2023 End: 04-21-2023 Emergency department patient visit PHYSICIAN NO FAMILY Facility:[facility] Start: 10-19-2022 End: 10-19-[address] NONE LISTED REQUEST Facility: Start: 05-26-2022 ambulatory Alize Jefferson RN NURS E SHUTTLE INSPECTOR Comment on above: Muscle Aches Start: 05-24-2022 End: 05-25-2022 Emergency department patient visit IKE HASTINGS Facility:[facility] Start: 05-23-2022 End: 05-23-2022 ambulatory GONZALEZ POWELL [facility] Start: 05-17-2022 End: 05-17-2022 Emergency department patient visit PHYSICIAN NO FAMILY [facility] Start: 05-01-2022 End: 05-01-[address] NONE LISTED REQUEST Facility: Start: 05-01-2021 End: 05-02-2021 ambulatory REFERRED SELF Facility:[facility] Start: 02-12-2021 End: 02-15-2021 Evaluation and management of inpatient NASH MERA [facility] Start: 02-12-2021 End: 02-15-2021 Evaluation and management of inpatient Nash Mera [employer] [facility] CN Work Phone: [facility] Labor and Delivery Comment on above: S/P primary low arredondo sverse (Primary Dx) Start: 08-20-2018 End: 08-23-2018 Patient encounter procedure BRIGITTE BA [facility] Procedures Date Procedure Procedure Detail Performing Clinician Start: 03-01-2024 SURESWAB(R) ADVANCED VAGINITIS PLUS, TMA Nash Mera CN Work Phone: Start: 02-14-2021 Blood count hemoglobin Nash Mera WIRE STEWARD - CN Work Phone: Start: 02-13-2021 Antibody screen Nash Mera WIRE STEWARD - CN Work Phone: Start: 02-13-2021 Blood typing serolog ic abo Fernando Hooks MD Work Phone: Start: 02-12-2021 Blood count complete auto&auto difrntl wbc Nash Mera WIRE STEWARD - CN Work Phone: Start: 02-12-20[address] class [address] a Nash Mera WIRE STEWARD - CN Work Phone: Start: 01-29-2021 GBS, EXTERNAL RESULT Hemant phoenix Provider Start: 08-15-2020 ABO, EXTERNAL RESULT Hemant phoenix Provider Start: 08-15-2020 HEPATITIS B, EXTERNA L RESULT Historical Provider Start: 08-15-2020 HIV, EXTERNAL RESULT Hemant phoenix Provider Start: 08-15-2020 Obstetric panel Histori brian Provider Start: 08-15-2020 RH FACTOR, EXTERNAL RESULT Historical Provider Start: 07-26-2020 HEPATITIS C ANTIBODY , EXTERNAL RESULT Historical Provider Start: 07-26-2020 RPR, EXTERNAL RESULT Hemant Wheeler MD H/O: section S/P primar y low transverse Nash Mera WIRE STEWARD - CN Work Phone: H/O: section S/P primar y low transverse Nash Mera WIRE STEWARD - CNM Work Phone: Plan of Treatment Date Care Activity Detail Author Start: 03-29-2024 End: 03-29-2024 ambulatory 03/29/2024 3:30 PM EDT Visit [facility] [address] [place] [id number] Nash Mera, [facility] [address] [place] [address] [facility] Start: 03-01-2024 End: 03-01-2024 ambulatory 03/01/2024 3:45 PM EDT Visit [facility] [address] [place] [address] Nash Mera, [facility] [address] [place] [address] [facility] Start: 02-07-2024 Influenza vaccination Influenza Vacc ine (#1) [facility] Start: 02-06-2022 Influenza vaccination INFLUENZA (#1) [facility] Start: 08-20-2021 PAP TESTING PAP TESTING [facility] Start: 06-08-2021 [facility]PRESSION [facility]MENT [facility] Start: 02-06-2021 Influenza vaccination Flu vaccine (# 1) [facility] Phone: Start: 2018 Screening for malign ant neoplasm of cervix Pap smear [facility] Phone: Start: 2016 DTaP/Tdap/Td vaccine (1 - Tdap) DTaP/Tdap/Td vaccine (1 - Tdap) [facility] Phone: Start: 2016 Urine microalbumin profile DTAP,TDAP,TD (1 - Tdap) [facility] Start: 2015 HEPATITIS C SCREENING HEPATITIS C SC REENING [facility] Start: 2015 HIV SCREENING HIV SCREENING [facility] Start: 2013 Screening for Chlamy graham trachomatis Chlamydia screen [facility] [employer] Phone: Start: 2012 HIV screening HIV screen [facility] Work Phone: Start: 2011 PEDS TO ADULT TRANSITION ANNUAL ASSESSMENT PEDS TO ADULT TRANSITION ANNUAL ASSESSMENT [facility] Start: 2009 COVID-19 Vaccine (1) COVID-19 Vaccin e (1) [facility] [employer] Phone: Start: 2009 PEDS TO ADULT TRANSITION INITIAL DISCUSSION PEDS TO ADULT TRANSITION INITIAL DISCUSSION [facility] Start: 2008 HPV vaccine (1 - 2-d ose series) HPV vaccine (1 - 2-dose series) [facility] Start: 1998 Varicella vaccine (1 of 2 - 2-dose childhood series) Varicella vaccine (1 of 2 - 2-dose childhood series) [facility] [employer] Phone: Start: 1997 COVID-19 VACCINE (#1) COVID-19 VACCI NE (#1) [facility] Start: 1997 HEPATITIS B (1 of 3 - 3-dose series) HEPATITIS B (1 of 3 - 3-dose series) [facility] Start: 1997 Hepatitis C screening Hepatitis C sc reen [facility] [employer] Phone: Bacteria identified in Urine by Culture [facility] Oxygen therapy [[facility] ad[facility] Data Set] Initiate Oxygen Therapy Protocol Respiratory Care Routine Daily until discontinued starting 02/13/2021 [facility] [employer] Phone: Comment on above: Daily until disconti nued starting 02/13/2021 Patient Education Abdominal Pain , Adult ED [facility] Work Phone: Patient referral [facility] Work Phone: Spirometry panel Incentive blanka metry Respiratory Care Routine Every 2hr while awake until discontinued starting 02/13/2021 [facility] [employer] Phone: Comment on above: Every 2hr while awak e until discontinued starting 02/13/2021 Immunizations Immunization Date Immunization Notes Care Provider Fa kayaty 02-13-2021 diphtheria, tetanus toxoids and acellular pertussis vaccine, unspecified formulation Nash Mera [facility] Work Phone: [employer] Work Phone: 02-13-2021 measles, mumps and rubella virus vaccine [facility] Work [facility]: [employer] Work Phone: Payers Date Payer Category Payer Self-pay 2021 Medicaid [id number] 1995 Unknown [id number] 2.16.8 [id number] 1997 Unknown [id number] 2.16.8 40.1.177584.3.579.2.647 1997 Unknown [id number] 2.16.84 0.1.721528.3.579.2.593 1997 Unknown [id number] 2.16.84 0.1.604173.3.579.2.593 1997 Unknown [id number] 2.16.84 0.1.238582.3.579.2.1259 1997 Unknown [id number] 2.16.84 0.1.244885.3.579.2.1259 1997 Unknown [id number] 2.16.84 0.1.000341.3.579.2.1259 1997 Unknown [id number] 2.16.84 0.1.116734.3.579.2.1259 1997 Unknown [id number] 2.16.84 0.1.063561.3.579.2.1259 1997 Unknown [id number] 2.16.84 0.1.210630.3.579.2.1259 1997 Unknown [id number] 2.16.84 0.1.042691.3.579.2.9 1997 Unknown [id number] 2.16.84 0.1.259859.3.579.2.9 1997 Unknown [id number] 2.16.84 0.1.580299.3.579.2.9 1997 Unknown [id number] 2.16.84 0.1.969740.3.579.2.1258 1997 Unknown [id number] 2.16.84 0.1.748768.3.579.2.1258 1997 Unknown [id number] 2.16.84 0.1.038019.3.579.2.1258 1997 Unknown [id number] 2.16.84 0.1.037605.3.579.2.9 1997 Unknown [id number] 2.16.840 .1.331530.3.579.2.1258 1997 Unknown [id number] 2.16.840 .1.192821.3.579.2.9 1997 Unknown [id number] 2.16.840 .1.621804.3.579.2.9 1959 Private Health Insurance [id number] [id number] 1959 Unknown [id number] Unknown [id number] 2.16.8 40.1.846636.3.579.2.531 Social History Date Type Detail Facility Start: 08-20-2018 End: 02-13-2021 Tobacco smoking status ORIS Never smoker [facility] Start: 02-13-2021 End: 12-30-2023 Tobacco use and exposure Never used [employer] Start: 02-13-2021 End: 03-01-2024 Alcohol intake Ex-drinker (finding) [facility] Phone: Start: 1995 Sex Assigned At Not on file [facility] [employer] Phone: Exposure to SARS-CoV-2 (event) Not sure [facility] Start: 05-17-2022 Tobacco smoking status NHIS Smoker (finding) [facility] Start: 1995 Sex Assigned At Female F [facility] Start: 05-24-2022 Alcohol intake Current drinke r of alcohol (finding) [facility] Start: 08-20-2018 Tobacco Comment Smokes radhames--s mokeless cigs. [facility] Start: 08-20-2018 Alcohol Comment a couple times per month [facility] Start: 03-01-2024 End: 03-02-2024 Sex Assigned At [employer] [facility] [employer] Other Start: 12-30-2023 Tobacco smoking status ORIS Ex-smoker [facility] History of tobacco use Cigarette Smoker [facility] Start: 03-01-2024 End: 03-02-2024 History of Social function [facility] The thought of harming myself has occurred to me Never [facility] Start: 05-03-2023 Alcohol Comment caffeine: 1-2 cups per day [facility] Start: 07-02-2023 Gender identity Identifies as female gender (finding) [facility] Goals Date Patient Goal Desired Activity /State Personal health goal Clinical Notes 02-15-2021 to 03-02-2024 Telephone Encounter - Radha Sahni - 03/02/2024 4:09 PM EDTTelephone Encounter - Radha Sahni - 03/02/2024 4:09 PM EDTNash Mera CNM - 03/01/2024 3:45 PM EDT Note Date & Type Note Facility 03-02-2024 Telephone encounter Note Form atting of this note might be different from the original. Vm left Pt left vm stating that she wanted to make sure her rx was sent to correct pharmacy Called and lmom for pateint that [facility]. [facility] 03-02-2024 Miscellaneous Notes Formattin g of this note might be different from the original. Vm left Pt left vm stating that she wanted to make sure her rx was sent to correct pharmacy Called and lmom for pateint that rx was sent to [facility] [employer] yesterday. documented in this encounter [facility] 03-01-2024 History of Presen t illness Narrative Jovon Lopez is here for visit. She is 8 weeks . Complaints: has no unusual complaints Weeks at delivery: 39 week Type of delivery: , Low Transverse; repeat Gender: female Baby is healthy: yes Breast or bottle feeding: breast and bottle Complaints or complications: no complications mood: well EPDS score at 6 weeks pp Contraception: Nothing Resumed Sexual activity: yes Resumed Menses: no EXAM: GENERAL APPEARANCE: alert, well appearing, in no apparent distress ASSESSMENT/PLAN: There are no diagnoses linked to this encounter. Patient wants STI testing done and she states He is working out of town every week, and I know something is going on, I just want checked. Sureswab obtained. normal exam documented in this encounter [facility] 02-26-2024 Telephone encounter Note Form atting of this note might be different from the original. Pt scheduled [facility] 02-26-2024 Miscellaneous Notes Formattin g of this note might be different from the original. Pt scheduled Dolly called - said she left a couple Vm's . I explained Lani was on vacation and jean pierre has been working solo ..she understood but needs to make appt - having a discharge she isnt sure is normal . Jovon- [phone] documented in this encounter [facility] 02-26-2024 Telephone encounter Note Form atting of this note might be different from the original. Dolly called - said she left a couple Vm's . I explained Lani was on vacation and jean pierre has been working solo ..she understood but needs to make appt - having a discharge she isnt sure is normal . Jovon- [phone] [facility] 02-05-2024 Telephone encounter Note Form atting of this note might be different from the original. Dolly called - she spoke w lady - having terrible sharp pain when breast feeding - was told baby may have thrush and giving it to mom . No visible symptoms - She said her nipple is white when done nursing - [facility] 02-05-2024 Miscellaneous Notes Formattin g of this note might be different from the original. Dolly called - she spoke w lady - having terrible sharp pain when breast feeding - was told baby may have thrush and giving it to mom . No visible symptoms - She said her nipple is white when done nursing - documented in this encounter [facility] 06-30-2023 Evaluation note Encounter Date Diagnosis Assessment Notes Jun, Diarrhea (ICD-10 - R19.7) Jun, Nausea (ICD-10 - R11.0) Jun, Weight loss (ICD-10 - R63.4) [facility] Other 12-30-2022 NotePlease notify patient that all of her labs are normal. We will proceed with EGD for further evaluation as planned. She needs to follow up with her PCP or whoever ordered the UA. This was not ordered by us and is abnormal. Please advise patient to follow up with ordering provider.[facility]12-19-2022 Miscellaneous Notes* Telephone Encounter - [...] the documentation, except for any edits/updates below. [facility] Gastroenterology History & Physical CHIEF COMPLAINT Chief Complaint Patient presents with New Patient Fatigue Had gallbladder removed in 03/2021, Dr. Powell found and fixed leak 04/2021, pt is having major problems with eating and drinking. Was referred back in 2020 HISTORY OF PRESENT ILLNESS: Jovon Lopez is a 27 y.o. female with history laparoscopic cholecystectomy on 03/25/2021 at [facility] (in setting of cholecystitis) complicated by biliary leak status post biliary stent on 03/28/2021 and transferred back to [place]. While there, she had worsening abdominal pain [...] cholangiogram. Biliary sphincterotomy was performed. A 10 Romanian X 9 cm plastic biliary stent was [...] normal bowel sounds, soft, (more content not included)...[facility]11-01-2021 History general Narrative - Reported* Type Description Date Surgical History C section Surgical History cholecystectomy 04/2021 [facility] Other 09-10-2021 History of Present illness Narrative* [...] I did review with her that the pricing consultant can review pump usage with her [...] 0037 118/76 98.2 F (36.8 C) 75 02/13/21 2111 107/78 98.2 F (36.8 C) 68 18 02/13/21 2056 111/75 68 02/13/212040 104/66 75 02/13/212026 100/60 70 02/13/212024 97 % 02/13/212014 109/73 97.8 F (36.6 C) 78 16 94 % 02/13/211999 107/72 76 16 96 % 02/13/211954 108/68 70 16 96 % 02/13/21 1940 112/70 78 16 95 % 02/13/21 193 (!) 103/59 88 16 96 % 02/13/21 1930 87 16 97 % 02/13/21 1925 (!) 136/59 84 16 92 % 02/13/21 [...] - CNM - 02/13/2021 7:35 PM EDT Business Office Manager Note: customer care assistant/surgical services tech primary section with Dr Hooks Closed SQ layer and also closed skin incision. All edges approximated, no bleeding or drainage noted. photographic equipment technician places sterile dressing over incision. Patient [...] 02/13/2021 5:15 PM EDT Surgery notified that pantograph operator and recovery nurse needed for impending . documented in this [facility] [employer] Phone: 1(589) 315-296009-10-2021 Hospital Discharge instructions* Instructions* Lila Mcintosh RN - 02/15/2021 Follow-up with your OB doctor as specified. [facility] phone: Dr. Neva Smith [facility] Dr. Brittani Espinoza [facility] [address] [address] [place] or [place] Lani Mera, MSN, WIRE STEWARD, CNM [place] [id number] [facility] [address] DIET Eat a well balanced diet focusing on foods high in fiber and protein. Drink plenty of fluids especially water. To avoid constipation you may take a mild stool softener as recommended by your doctor or commercial print salesman. ACTIVITY Gradually increase your activity. Resume exercise regimen only after advice by your doctor or commercial print salesman. Avoid lifting anything heavier than a gallon of milk for SIX weeks. Avoid driving until your doctor or commercial print salesman has given their approval. Rise slowly from [...] medications as recommended by your doctor or commercial print salesman for pain If you develop a warm, [...] vitamins as directed by your doctor or commercial print salesman. Refer to the booklet in the folder/binder for more information. If you feel you need more assistance or have questions, please call Loreta Reyes IBCLC, pricing consultant, at or the OB department to [...] area in your calf. documented in this [facility] Work Phone: [phone]) 495-485409-10-2021 Hospital course Narrative* Kyra Smith APRN - [...] for: HEPBSAG HIV: No results found for: ERL21HT Results for orders placed or performed during [...] # 1.67 1.10 - 3.70 k/uL Absolute [place] # 0.44 0.10 - 1.20 k/uL Absolute [...] Range Expiration Date 02/16/2021,2359 Arm Band Number [id number] ABO/Rh A POSITIVE Antibody Screen NEGATIVE complications: none Discharge Medication: Jovon Lopez Home Medication Instructions [place]:[id number] Printed on:02/15/21 1002 Medication Information docusate sodium [...] and post depression check documented in this encounter[facility]spectWise Phone: [email or web address] note* Diagnosis S/P primary low transverse - Primary delivery, without mention of indication, unspecified as to episode of care Encounter for induction of labor Term intolerance to labor, delivered, current hospitalization Abnormality in heart rate/rhythm, delivered, with or without mention of antepartum condition documented in this encounter [facility] Phone: [email or web address] noteNo assessment information available [facility] Work Phone: Evaluation noteNo InformationNowashington county memorial hospital DZZOM Other Evaluation note* Diagnosis Post depression (CMS/HCC)- Primary Mental disorders of mother, complicating , childbirth, or the puerperium, unspecified as to episode of care Vaginal discharge Leukorrhea, not specified as infective [facility] Additional Instructions Follow-up with GI doctor provided Return to the ED if develop worsening symptoms or concerns take the new medications as prescribed, use pepto bismol, tums as needed avoid any spicy foods, fatty foods and avoid alcoholMercy Health Lorain Hospital Ctr Work Phone: Summary Purpose Family History No Family History Records FoundNo Family History Records FoundNo Family History Records FoundNo Family History Records FoundNo Family History Records FoundNo Family History Records FoundNo Family History Records FoundNo Family History Records FoundNo Family History Records Found Advance Directives Latest Code Status on File Code Status Date [...] content) DATE CREATED AUTHOR 08/25/2018 [facility] DATE CREATED AUTHOR AUTHOR'S ORGANIZ ATION 02/16/2021 [facility] DATE CREATED AUTHOR AUTHOR'S ORGANIZ ATION 05/21/2021 [facility] DATE CREATED AUTHOR AUTHOR'S ORGANIZ ATION 05/27/2021 [facility] dical Specialist DATE CREATED AUTHOR AUTHOR'S ORGANIZ ATION 05/30/2022 [facility] DATE CREATED AUTHOR AUTHOR'S ORGANIZ ATION 07/17/2022 [facility] DATE CREATED AUTHOR AUTHOR'S ORGANIZ ATION 10/22/2022 [facility] DATE CREATED AUTHOR AUTHOR'S ORGANIZ ATION 07/17/2023 [facility] DATE CREATED AUTHOR AUTHOR'S ORGANIZ ATION 03/06/2024 [facility] dical Specialists EPIC Reason for Visit (unrecogniz ed section and content) Reason Comments Scheduled Induction Cytotec Induction Status Reason Specialty Diagnoses / Procedures Referre d By Contact Referred To Contact Diagnoses Encounter for induction of labor Term Nash Mera APRN - BRADY [address] [place] [address] [facility] Reason Comments Muscle Aches Reason Comments Care Ordered Prescriptions (unrec ognized section and content) [...] 50 mL IVPB (COMPLETED) 900 mg, IntraVENous, SHUTTLE INSPECTOR TO O.R., 1 dose, On Thu02/13/21 [...] (Due) 926 (Given - Provider: Claudine Benavides RN)1956 (Given - Provider: Deja Villalobos RN) 0740 (Given - Provider: Lila Mcintosh, HALLE)2100 [...] 1735 (Given - Provider: Claudine Benavides, HALLE) ibuprofen [...] 173 (Given - Provider: Claudine Benavides RN) miSOPROStol (CYTOTEC) pre-split tablet TABS 25 mcg [...] Reason: Other) 0927 (Given - Provider: Claudine Benavides RN) 0740 (Given - Provider: Lila Mcintosh, HALLE) sodium chloride flush 0.9 % injection 10 mL 10 mL, IntraVENous, EVERY 12 HOURS SCHEDULED (2 times per day), First dose on Thu02/13/21 at 2100, 2100 (Due) 0900 (Due)2100 (Due) 09 (Due)2100 (Due) Hmasvwi-Iyignp-Aypuz Pertussis (BOOSTRIX) injection 0.5 mL 0.5 mL, [...] Bag - Provider: Luther Silvestre APRN - RING FACER)1912 (Anesthesia Volume Adjustment - Provider: SAEID Sheppard [...] every 2-3 minutes with cervical changes or Raysal units (MVU) greater than 200 in a [...] or incisional pain, Starting on Thu02/13/21 at 1948, Maximum dose [...] 1948, Post-op 0733 (Given - Provider: Claudine Benavides, [...] LPN) 0803 (Given - Provider: Lila Mcintosh, RN) sodium chloride flush 0.9 % injection 10 mL 10 mL, IntraVENous, PRN, Line Care, Starting on Thu02/13/21 at 1949, After every IV line use, No Frequency Medication Order 02/13/2021 02/14/2021 02/15/2021 gentamicin (GARAMYCIN) 40 MG/ML injection (COMPLETED) Starting on Thu02/13/21 at 1746, For 1 dose, Tamiko Reardon: cabinet override 1756 (Given - Provider: Claudine Benavides, HALLE) Linked Groups Order Group 1: oxyCODONE-acetaminophen (PERCOCET) [...] PHYSICIAN NO FAMILY Primary Care Provider Active Road Crew Member Relationship Specialty Start Date End Date Unallocated, Viet Wheeler [facility] [place] [address] PCP - General Family Medicine 12/17/23 Road Crew Member Relationship Specialty Start Date End Date Unallocated, MD Diogo Blanchard [facility] [place] [address] PCP - General Family Medicine 12/17/23 Road Crew Member Relationship Specialty Start Date End Date Unallocated, [place] Provider, [place] [address] PCP - General Family Medicine 12/17/23 Road Crew Member Relationship Specialty Start Date End Date Unallocated, [place] Provider, Diogo [place], [place] [id number] PCP - General Family Medicine 12/17/23 Goals (unrecognized section and content) Goals may [...] BE BASED ON THE PRIMARY CLINICAL RECORDS. [facility]. provides no warranty or guarantee of the accuracy or completeness of information in this document.
--- NOTE | 2024-07-26 04:53 | ED.NAVMDI1 ---
HPI - Nausea/Vomiting/Diarrhea General Chief complaint: Nausea/Vomiting/Diarrhea Stated complaint: NVD Time Seen by Provider: 07/26/24 04:49 Source: patient Mode of arrival: ambulance Limitations: no limitations History of Present Illness HPI Narrative: 29-year-old female presents with her mother to the emergency department for nausea vomiting and diarrhea. This time it started 2 days ago. She had her gallbladder taken out a few years ago and she has had recurrent episodes like this. Mother states that they cannot find out why it keeps happening. No fever or hematemesis. Related Data Allergies Allergy/AdvReac Type Severity Reaction Status Date / Time morphine Allergy Severe Hives Verified 07/26/24 04:48 Penicillins Allergy Severe Unknown Verified 07/26/24 04:48 Review of Systems ROS Narrative A ten point review of systems is negative except as noted above. PFSH PFS Social History Smoking status: Heavy tobacco smoker Little interest or pleasure in doing things: not at all Feeling down, depressed, or hopeless: not at all Exam Narrative Exam Narrative: Nurses note and vital signs reviewed and patient is not hypoxic. General: The patient appears in no acute respiratory distress. She appears uncomfortable Skin: Warm, dry, mild pallor noted. There is no rash noted. Head: Normocephalic, atraumatic Eye: Normal conjunctiva, no drainage Ears, Nose, Mouth, and Throat: oral mucosa is slightly dry. Nares patent. Cardiovascular: Regular Rate and Rhythm, not tachycardic Respiratory: Patient is in no distress, no accessory muscle use, lungs are clear to auscultation, no wheezing, rales or rhonchi GI: No distention. Diffuse tenderness present, no mass Musculoskeletal: The patient has no evidence of calf tenderness, no pitting edema, symmetrical pulses noted bilaterally Neurological: A&O, normal speech Psychiatric: Cooperative Constitutional Vital Signs, click to edit/add: Last Vital Signs Temp 98.3 F 07/26/24 04:48 Pulse 74 07/26/24 06:13 Resp 19 07/26/24 06:13 BP 99/66 07/26/24 06:13 Pulse Ox 99 07/26/24 06:13 O2 Del Method Room Air 07/26/24 04:48 Course Vital Signs Vital signs: Vital Signs Temperature 98.3 F 07/26/24 04:48 Pulse Rate 78 07/26/24 04:48 Respiratory Rate 18 07/26/24 04:48 Blood Pressure 154/45 H 07/26/24 04:48 Pulse Oximetry 98 07/26/24 04:48 Oxygen Delivery Method Room Air 07/26/24 04:48 Temperature 98.3 F 07/26/24 04:48 Pulse Rate 74 07/26/24 06:13 Respiratory Rate 19 07/26/24 06:13 Blood Pressure 99/66 07/26/24 06:13 Pulse Oximetry 99 07/26/24 06:13 Oxygen Delivery Method Room Air 07/26/24 04:48 MDM - Nausea/Vomiting/Diarrhea MDM Narrative Medical decision making narrative: Blood work is nonspecific. Blood work is nonspecific. WBC is 8.2. She is not . She was given IV fluids as well as IV Zofran and IV Phenergan and a dose of IV Dilaudid. The patient is signed out to Dr. Regalado at change of shift. Differential Diagnosis Differential diagnosis: Likely food poisoning, gastroenteritis and dehydration Lab Data Attestation: I reviewed the patient's lab results. Labs: Lab Results 07/26/24 Range/Units 05:00 WBC 8.2 (4.0-11.0) 10^3/uL RBC 5.04 (4.20-5.40) 10^6/uL Hgb 14.8 (12.0-16.0) g/dL Hct 43.3 (36.0-48.0) % MCV 85.9 (81.0-99.0) fL MCH 29.4 (26.7-34.0) pg MCHC 34.2 (29.9-35.2) g/dL RDW 12.4 (11.0-15.0) % Plt Count 352 (150-450) 10^3/uL MPV 10.5 (9.5-13.5) fL Neut % (Auto) 77.5 H (43.0-75.0) % Lymph % (Auto) 11.9 L (20.5-60.0) % [place] % (Auto) 6.7 (1.7-12.0) % Eos % (Auto) 3.3 (0.9-7.0) % Baso % (Auto) 0.1 L (0.2-2.0) % Neut # (Auto) 6.3 (1.4-6.5) 10^3/uL Lymph # (Auto) 1.0 L (1.2-3.8) 10^3/uL [place] # (Auto) 0.6 (0.3-0.8) 10^3/uL Eos # (Auto) 0.3 (0.0-0.7) 10^3/uL Baso # (Auto) 0.0 (0.0-0.1) 10^3/uL Abs Immat Gran (auto) 0.04 H (0.00-0.03) 10^3/uL Imm/Tot Granulo (auto) 0.5 (0.0-0.5) % Sodium 137 (136-145) mmol/L Potassium 3.0 L (3.5-5.1) mmol/L Chloride 102 (98-107) mmol/L Carbon Dioxide 16.8 L (21.0-32.0) mmol/L Anion Gap 21.2 BUN 14.0 (7.0-18.0) mg/dL Creatinine 1.15 H (0.55-1.02) mg/dL Est GFR ( Amer) >60 (>=60 mL/min/1.73m^2) Est GFR (Non-Af Amer) 57 L (>=60 mL/min/1.73m^2) BUN/Creatinine Ratio 12.2 Glucose 224 H (74-106) mg/dL Calcium 9.1 (8.5-10.1) mg/dL Total Bilirubin 1.0 (0.2-1.0) mg/dL Direct Bilirubin 0.2 (0.0-0.2) mg/dL AST 24 (15-37) U/L ALT 31 (14-59) U/L Alkaline Phosphatase 83 (46-116) U/L Total Protein 7.6 (6.4-8.2) g/dL Albumin 4.0 (3.4-5.0) g/dL Globulin 3.6 g/dL Albumin/Globulin Ratio 1.1 Amylase 42 (25-115) U/L Lipase 25.0 (16.0-77.0) U/L Serum HCG, Qual Negative (NEGATIVE) Discharge Plan Discharge Patient Disposition: Still a Patient
[2024-07-26 05:09] LABS: Basophils Percent Auto 0.1 % (0.2-2.0); Eosinophils Absolute Auto 0.3 10^3/uL (0.0-0.7); Eosinophils Percent Auto 3.3 % (0.9-7.0); Hematocrit 43.3 % (36.0-48.0); Hemoglobin 14.8 g/dL (12.0-16.0); Immature Granulocytes Abs Auto 0.04 10^3/uL (0.00-0.03); Immature Granulocytes Pct Auto 0.5 % (0.0-0.5); Lymphocytes Percent Auto 11.9 % (20.5-60.0); Mean Corpuscular HGB Conc 34.2 g/dL (29.9-35.2); Mean Corpuscular Hemoglobin 29.4 pg (26.7-34.0); Mean Corpuscular Volume 85.9 fL (81.0-99.0); Mean Platelet Volume 10.5 fL (9.5-13.5); Monocytes Absolute Auto 0.6 10^3/uL (0.3-0.8); Monocytes Percent Auto 6.7 % (1.7-12.0); Neutrophils Absolute Auto 6.3 10^3/uL (1.4-6.5); Neutrophils Percent Auto 77.5 % (43.0-75.0); Platelet Count 352 10^3/uL (150-450); Red Blood Count 5.04 10^6/uL (4.20-5.40); Red Cell Distribution Width 12.4 % (11.0-15.0); White Blood Count 8.2 10^3/uL (4.0-11.0)
[2024-07-26] MEDS: 0.9 % SODIUM CHLORIDE 1,000 ML 1000 ML IV ×2 (05:22→06:43)
[2024-07-26] MEDS: ONDANSETRON PF 4 MG/2 ML VIAL IV (05:22)
[2024-07-26 05:25] LABS: HCG Qualitative NEGATIVE (NEGATIVE); Internal Control Within Normal Limits
[2024-07-26 05:30] LABS: Anion Gap 21.2; BUN Creatinine Ratio 12.2; Calcium 9.1 mg/dL (8.5-10.1); Carbon Dioxide 16.8 mmol/L (21.0-32.0); Chloride 102 mmol/L (98-107); Estimated GFR (African America >60 (>=60 mL/min/1.73m^2); Estimated GFR (Non-African Ame 57 (>=60 mL/min/1.73m^2); Glucose 224 mg/dL (74-106); Sodium 137 mmol/L (136-145)
[2024-07-26 05:31] LABS: Alanine Aminotransferase 31 U/L (14-59); Aspartate Amino Transferase 24 U/L (15-37); Bilirubin Direct 0.2 mg/dL (0.0-0.2)
[2024-07-26 05:32] LABS: Albumin Globulin Ratio 1.1; Alkaline Phosphatase 83 U/L (46-116); Amylase 42 U/L (25-115); Globulin 3.6 g/dL; Total Protein 7.6 g/dL (6.4-8.2)
[2024-07-26] MEDS: HYDROMORPHONE HCL 1 MG/ML CARTRIDGE IV (05:54)
[2024-07-26] MEDS: FAMOTIDINE/PF 20 MG/2 ML VIAL 10 MG IV (05:54)
[2024-07-26] MEDS: PROMETHAZINE HCL 12.5 MG in 0.9 % SODIUM CHLORIDE 50 ML 202 MG IV (05:54)
--- NOTE | 2024-07-26 06:33 | PC.NURSE ---
this patient lying on her right on the bed, abdomen pain 5/10 and nausea is better. this patient aware that she will receive another bag of iv fluids
[2024-07-26] MEDS: DIPHENHYDRAMINE HCL 50 MG/ML VIAL 12.5 MG IV (08:25)
[2024-07-26] MEDS: HYDROMORPHONE HCL 0.5 MG/0.5 ML SYRINGE IV (08:28)
[2024-07-26] MEDS: POTASSIUM CHLORIDE 40 MEQ in 0.9 % SODIUM CHLORIDE 250 ML 67.5 MEQ IV (09:49)
--- OUTSIDE RECORDS SUMMARY | 2024-07-26 13:53 | XMS_ITS | CCD ---
Author Organization [facility] Care Team Providers Care Geophysical Drafter Name Role Phone BRIGITTE BA Marvel Attending [...] reactions to drug 08-21-19 Other (See Comments) [employer] (4 sources) Morphine; Translations: [MORPHINE] Drug Allergy 05-01-20 Hives [facility] (2 sources) Penicillin Drug Allergy 07-24-19 [facility] (8 sources) Morphine Drug Allergy 05-23-20 Hives [facility] (1 source) Penicillins Propensity to adverse reactions to drug 08-21-19 Unknown [facility] (1 source) Morphine Drug Allergy 04-29-20 [facility] (2 sources) Amoxicillin Drug Allergy [facility] Other (1 source) Amoxicillin Drug Allergy 06-30-19 [facility] (1 source) Morphine Drug Allergy 06-30-19 [facility] (1 source) Penicillins Drug allergy (disorder) 04-20-20 [facility] (5 sources) Penicillins Drug Intolerance 08-21-19 Rash, Hives [facility] Healthcare Medications Current Medications Medication Drug [...] 2 tablets by mouth every six hours Xpxqwooao-RP-Jzdnh minophen 2-5-325 & 5-325 MG misc Indications: Pharyngitis, unspecified etiology Take 2 tablets by mouth every 6 (six) hours if needed (discomfort) 20 each 12/08/2023 03/01/2024 Discontinued (Therapy completed) Start: 12-08-2023 take 2 tablets by mo [facility] every six hours Zniztbepb-ML-Duvpyexyayuxh 2-5-325 & 5-3 25 MG misc Indications: [...] Comment on above: Take 1 tablet by [facility] every 6 hours as needed. calcium [...] infection (1 source) Acute gastroenteropathy due to Duvall agent; Translations: [ACUTE GASTROENTROPATHY NORWALK AGNT] Onset: [...] Ql (Vag fld) Not detected NOT DETECTED [facility] Healthcare Comment on above: Lucía species C. albicans, C. tropicalis, C. parapsilosis, and/or C. dubliniensis can be detected, but not differentiated, in the Lucía spp. result. Laboratory - Microbiology an d Antimicrobial susceptibilityon 03-02-2024 C. trachomatis rRNA UTE+probe Ql (Unsp spec) Not detected NOT DETECTED [facility] Lucía sp rRNA Probe Ql (Vag fld) Not detected NOT DETECTED [facility] Lactobacillus crispatus+gasseri+jense supriya + Gardnerella vaginalis + Atopobium vaginae rRNA UTE+probe Ql (Vag fld) Negative NEGATIVE [facility] N. gonorrhoeae rRNA UTE+probe Ql (Unsp spec) Not detected NOT DETECTED [facility] Comment on above: For additional infor teresa, please refer to https://education.[employer]faq/LFY654 (This link is being provided for information/ educational purposes only.) T. vaginalis rRNA UTE+probe Ql (Unsp spec) Not detected NOT DETECTED [facility] No Panel Informationon 03-02 Performing Organization Information Site ID: QPT Name: [facility] Address: [address] [place] [id number] Director: Shamar Colunga MD Counts include 234 beds at the [facility] US OB 14+ WEEKS ANATOMY SCAN on [...] , with heart rate of 126 bpm. [place]-rump length measures 0.95 cm, yielding an estimated [...] 3 HCG,Quantitative 25.40 m[iU]/mL Normal [facility] Comment on above: Result Comment: Appr oximate Approximate hCG Gestational Age Range (mIU/ml) (weeks) 0.2-1 5-50 1-2 50-500 2-3 100-5,000 3-4 500-10,000 4-5 1,000-50,000 5-6 10,000-100,000 6-8 15,000-200,000 8-12 10,000-100,000 PERFORMED BY: [place] [id number] PATHOLOGIST ASSEMBLER WATCH TRAIN ARJUN HASTINGS M.D. Performed By: #### H CGQNT #### [facility] [address] [place], [place] [id number] [place] HCG,Urineon 04-21-2023 Beta HCG ( test) Ql (U) Negative Normal [facility] Comment on above: Order Comment: Name Collection Type:: Clean-Voided Midstream Result Comment: PERF ORMED BY: [place] [id number] PATHOLOGIST ASSEMBLER WATCH TRAIN ARJUN HASTINGS M.D. Performed By: #### U A, CG #### [facility] [address] [place], [place] [id number] [place] Urinalysison 04-21-2023 Appearance (U) Clear Normal Clear [facility] Comment on above: Order Comment: Name Collection Type:: Clean-Voided Midstream Performed By: #### U A, UHCG #### [facility] [address] [place] [address] [place] Bilirubin,Urine Negative Normal Negative [facility] Comment on above: Order Comment: Name Collection Type:: Clean-Voided Midstream Performed By: #### U A, UHCG #### [facility] [address] [place] [address] Color (U) Yellow Normal Yellow [facility] Comment on above: Order Comment: Name Collection Type:: Clean-Voided Midstream Performed By: #### U A, UHCG #### [facility] [address] [place] [address] Glucose Ql (U) Normal Normal Normal [facility] Comment on above: Order Comment: Name Collection Type:: Clean-Voided Midstream Performed By: #### U A, UHCG #### [address] Ketones Ql (U) Negative Normal Negative [facility] Comment on above: Order Comment: Name Collection Type:: Clean-Voided Midstream Performed By: #### U A, UHCG #### [facility] [address] [place] [address] Leukocyte esterase Test strip Ql (U) Negative Normal Negative [facility] Comment on above: Order Comment: Name Collection Type:: Clean-Voided Midstream Performed By: #### U A, UHCG #### [facility] [address] [place] [address] [place] Nitrite,Urine Negative Normal Negative [facility] Comment on above: Order Comment: Name Collection Type:: Clean-Voided Midstream Performed By: #### U A, UHCG #### [facility] [address] [place] [address] [place] Occult Blood,Urine Negative Normal Negative [facility] Comment on above: Order Comment: Name Collection Type:: Clean-Voided Midstream Performed By: #### U A, UHCG #### [facility] [address] [place] [address] [place] pH (U) 7.5 [pH] Normal 5.0-9.0 [facility] Comment on above: Order Comment: Name Collection Type:: Clean-Voided Midstream Performed By: #### U A, UHCG #### [facility] [address] Protein,Urine Negative Normal Negative [facility] Comment on above: Order Comment: Name Collection Type:: Clean-Voided Midstream Performed By: #### U A, UHCG #### [address] Specificy [place],Urine 1.011 Normal 1.001-1.030 [facility] Comment on above: Order Comment: Name Collection Type:: Clean-Voided Midstream Performed By: #### U A, UHCG #### [address] Urobilinogen,Urine Normal Normal Normal [facility] Comment on above: Order Comment: Name Collection Type:: Clean-Voided Midstream Performed By: #### U A, UHCG #### [address] AMYLASEon 10-19-2022 Amylase [Catalytic activity/Vol] 42 U/L Normal 25-115 [facility] Comment on above: Performed By: #### L IPA, ROSS, CMP #### [facility] [address] [place] [address] Dr. Radha Garcia CBC AUTO DIFFon 10-19-2022 BASO # 0.0 103/ul Normal 0.0-0.1 [facility] Comment on above: Performed By: #### C BC #### [facility] [address] [place] [address] Dr. Radha Garcia Basophils/100 WBC (Bld) 0.4 % Normal 0.2-2.0 [facility] Comment on above: Performed By: #### C BC #### [facility] [address] [place] [address] Dr. Radha Garcia EO # 0.1 103/ul Normal 0.0-0.7 [facility] Comment on above: Performed By: #### C BC #### [facility] [address] [place] [address] Dr. Radha Garcia Eosinophils/100 WBC (Bld) 2.9 % Normal 0.9-7.0 [facility] Comment on above: Performed By: #### C BC #### [facility] [address] [place] [address] Dr. Radha Garcia Erythrocyte distribution width (RBC) [Ratio] 12.6 % Normal 11.0-15.0 [facility] Comment on above: Performed By: #### C BC #### [facility] [address] [place] [address] Dr. Radha Garcia Hematocrit (Bld) [Volume fraction] 41.9 % Normal 36.0-48.0 [facility] Comment on above: Performed By: #### C BC #### [facility] [address] [place] [address] Dr. Radha Garcia Hemoglobin (Bld) [Mass/Vol] 13.8 g/dL Normal 12.0-16.0 [facility] Comment on above: Performed By: #### C BC #### [facility] [address] [place] [address] Dr. Radha Garcia IG # 0.01 10e3/ul Normal 0.00-0.03 [facility] Comment on above: Performed By: #### C BC #### [facility] [address] [place] [address] Dr. Radha Garcia IG % 0.2 % Normal 0.0-0.5 [facility] Comment on above: Performed By: #### C BC #### [facility] [address] [place] [address] Dr. Radha Garcia LYMPH # 1.2 103/ul Normal 1.2-3.8 [facility] Comment on above: Performed By: #### C BC #### [facility] [address] [place] [address] Dr. Radha Garcia Lymphocytes/100 WBC (Bld) 25.6 % Normal 20.5-60.0 [facility] Comment on above: Performed By: #### C BC #### [facility] [address] [place] [address] Dr. Radha Garcia MANUAL DIFF REQ NO Normal [facility] Comment on above: Performed By: #### C BC #### [facility] [address] [place] [address] Dr. Radha Garcia MCH (RBC) [Entitic mass] 29.9 pg Normal 26.7-34.0 [facility] Comment on above: Performed By: #### C BC #### [facility] [address] [place] [address] Dr. Radha Garcia MCHC (RBC) [Mass/Vol] 32.9 g/dL Normal 29.9-35.2 [facility] Comment on above: Performed By: #### C BC #### [facility] [address] [place] [address] Dr. Radha Garcai MCV (RBC) [Entitic vol] 90.9 fL Normal 81.0-99.0 [facility] Comment on above: Performed By: #### C BC #### [facility] [address] [place] [address] Dr. Radha Garcia MONO # 0.3 103/ul Normal 0.3-0.8 [facility] Comment on above: Performed By: #### C BC #### [facility] [address] [place] [address] Dr. Radha Garcia Monocytes/100 WBC (Bld) 6.5 % Normal 1.7-12.0 [facility] Comment on above: Performed By: #### C BC #### [facility] [address] [place] [address] Dr. Radha Garcia NEUT # 2.9 103/ul Normal 1.4-6.5 [facility] Comment on above: Performed By: #### C BC #### [facility] [address] [place] [address] Dr. Radha Garcia Neutrophils/100 WBC (Bld) 64.4 % Normal 43.0-75.0 [facility] Comment on above: Performed By: #### C BC #### [facility] [address] [place] [address] Dr. Radha Garcia Platelet mean volume (Bld) [Entitic vol] 10.6 fL Normal 9.5-13.5 [facility] Comment on above: Performed By: #### C BC #### [facility] [address] [place] [address] Dr. Radha Garcia PLT 246 103/ul Normal 150-450 [facility] Comment on above: Performed By: #### C BC #### [facility] [address] [place] [address] Dr. Radha Gacria RBC 4.61 106/ul Normal 4.20-5.40 [facility] Comment on above: Performed By: #### C BC #### [facility] [address] [place] [address] Dr. Radha Garcia WBC 4.5 103/ul Normal 4.0-11.0 [facility] Comment on above: Performed By: #### C BC #### [facility] [address] [place] [address] Dr. Radha Garcia GI PANEL (PCR)on 10-19-2022 Adenovirus F 40/41 Not detected Normal NOT DETECTED [facility] Comment on above: Performed By: #### G IPANEL #### [facility] [address] [place] [address] Dr. Radha Garcia Astrovirus Not detected Normal NOT DETECTED [facility] Comment on above: Performed By: #### G IPANEL #### [facility] [address] [place] [address] Dr. Radha Garcia C. Diff toxin A/B Not detected Normal NOT DETECTED [facility] Comment on above: Performed By: #### G IPANEL #### [facility] [address] [place] [address] Dr. Radha Garcia Campylobacter Not detected Normal NOT DETECTED [facility] Comment on above: Performed By: #### G IPANEL #### [facility] [address] [place] [address] Dr. Radha Garcia Cryptosporidium Not detected Normal NOT DETECTED [facility] Comment on above: Performed By: #### G IPANEL #### [facility] [address] [place] [address] Dr. Radha Garcia Cyclos. Cayetanensis Not detected Normal NOT DETECTED [facility] Comment on above: Performed By: #### G IPANEL #### [facility] [address] [address] [address] Radha Garcia E. Coli O157 Not Applicable Normal Not Applicable [facility] Comment on above: Performed By: #### G IPANEL #### [facility] [address] [address] [address] Radha Garcia E. histolytica Not detected Normal NOT DETECTED [facility] Comment on above: Performed By: #### G IPANEL #### [facility] [address] [place] [address] Dr. Radha Garcia EAEC Not detected Normal NOT DETECTED [facility] Comment on above: Performed By: #### G IPANEL #### [facility] [address] [address] [address] Radha Garcia EIEC Not detected Normal NOT DETECTED [facility] Comment on above: Performed By: #### G IPANEL #### [facility] [address] [place] [address] Dr. Radha Garcia EPEC Not detected Normal NOT DETECTED [facility] Comment on above: Performed By: #### G IPANEL #### [facility] [address] [place] [address] Dr. Radha Garcia ETEC Not detected Normal NOT DETECTED [facility] Comment on above: Performed By: #### G IPANEL #### [facility] [address] [place] [address] Dr. Radha Garcia G. Lamblia Not detected Normal NOT DETECTED [facility] Comment on above: Performed By: #### G IPANEL #### [facility] [address] [place] [address] Dr. Radha Garcia GIPANEL CONTROLS PASSED Normal [facility] Comment on above: Performed By: #### G IPANEL #### [facility] [address] [place] [address] Dr. Radha TALBERT HEADER GI PANEL BACTERIA Normal [facility] Comment on above: Performed By: #### G IPANEL #### [facility] [address] [address] [address] Radha LOUIS ECOLI GI PANEL DIARRHEAGENIC E.COLI / SHIGELLA Normal [facility] Comment on above: Performed By: #### G IPANEL #### [facility] [address] [address] [address] Radha LOUIS INFO SEE BELOW [facility] Comment on above: Result Comment: EAEC - Enteroaggregative E. Coli EPEC- Enteropathogenic E. Coli ETEC- Enterotoxigenic E. Coli lt/st STEC- Shigella-like toxin-producing E. Coli stx1/stx2 EIEC- Shigella/Enteroinvasive E. Coli Performed By: #### G IPANEL #### [facility] [address] [place] [address] Dr. Radha LOUIS PARASITES GI PANEL PARASITES Normal [facility] Comment on above: Performed By: #### G IPANEL #### [facility] [address] [place] [address] Dr. Radha LOUIS VIRUS GI PANEL VIRUSES Normal [facility] Comment on above: Performed By: #### G IPANEL #### [facility] [address] [place] [address] Dr. Radha Garcia Norovirus GI/GII Detected Abnormal NOT DETECTED [facility] Comment on above: Performed By: #### G IPANEL #### [facility] [address] [place] [address] Dr. Radha Garcia P. Shigelloides Not detected Normal NOT DETECTED [facility] Comment on above: Performed By: #### G IPANEL #### [facility] [address] [address] [address] Radha Garcia Rotavirus A Not detected Normal NOT DETECTED [facility] Comment on above: Performed By: #### G IPANEL #### [facility] [address] [place] [address] Dr. Radha Garcia Salmonella Not detected Normal NOT DETECTED [facility] Comment on above: Performed By: #### G IPANEL #### [facility] [address] [place] [address] Dr. Radha Garcia Sapovirus Not detected Normal NOT DETECTED [facility] Comment on above: Performed By: #### G IPANEL #### [facility] [address] [place] [address] Dr. Radha Garcia STEC Not detected Normal NOT DETECTED [facility] Comment on above: Performed By: #### G IPANEL #### [facility] [address] [place] [address] Dr. Radha Garcia Vibrio Not detected Normal NOT DETECTED [facility] Comment on above: Performed By: #### G IPANEL #### [facility] [address] [place] [address] Dr. Radha Garcia Vibrio Cholera Not detected Normal NOT DETECTED [facility] Comment on above: Performed By: #### G IPANEL #### [facility] [address] [place] [address] Dr. Radha Garcia Y. Enterocolitica Not detected Normal NOT DETECTED [facility] Comment on above: Performed By: #### G IPANEL #### [facility] [address] [place] [address] Dr. Radha Garcia LIPASEon 10-19-2022 Lipase [Catalytic activity/Vol] 54.0 U/L Critically low 73.0-393.0 [facility] Comment on above: Performed By: #### L ROSS BAKER CMP #### [facility] [address] [place] [address] Dr. Radha Garcia PROF 14(COMP METB)on 023 Albumin [Mass/Vol] 3.3 g/dL Critically low 3.4-5.0 [facility] Comment on above: Performed By: #### L ROSS BAKER, CMP #### [facility] [address] [place] [address] Dr. Radha Garcia Albumin/Globulin [Mass ratio] 1.0 {ratio} Normal [facility] Comment on above: Performed By: #### L IPA, ROSS, CMP #### [facility] [address] [address] [address] Radha Garcia ALP [Catalytic activity/Vol] 58 U/L Normal 46-116 [facility] Comment on above: Performed By: #### L IPA, ROSS, CMP #### [facility] [address] [address] [address] Radha Garcia ALT [Catalytic activity/Vol] 25 U/L Normal 14-59 [facility] Comment on above: Performed By: #### L IPA, ROSS, CMP #### [facility] [address] [address] [address] Radha Garcia Anion gap [Moles/Vol] 14.5 mmol/L Normal [facility] Comment on above: Performed By: #### L IPA, ROSS, CMP #### [facility] [address] [address] [address] Radha Garcia AST [Catalytic activity/Vol] 19 U/L Normal 15-37 [facility] Comment on above: Performed By: #### L IPA, ROSS, CMP #### [facility] [address] [address] [address] Radha Garcia Bilirubin [Mass/Vol] 0.8 mg/dL Normal 0.2-1.0 [facility] Comment on above: Performed By: #### L IPA, ROSS, CMP #### [facility] [address] [address] [address] Radha Garcia Calcium [Mass/Vol] 8.4 mg/dL Critically low 8.5-10.1 [facility] Comment on above: Performed By: #### L IPA, ROSS, CMP #### [facility] [address] [address] [address] Radha Garcia Chloride [Moles/Vol] 107 mmol/L Normal 98-107 [facility] Comment on above: Performed By: #### L IPA, ROSS, CMP #### [facility] [address] [address] [address] Radha Garcia CO2 [Moles/Vol] 25.8 mmol/L Normal 21.0-32.0 [facility] Comment on above: Performed By: #### L IPA, ROSS, CMP #### [facility] [address] [address] [address] Radha Garcia Creatinine [Mass/Vol] 0.78 mg/dL Normal 0.55-1.02 [facility] Comment on above: Performed By: #### L IPA, ROSS, CMP #### [facility] [address] [address] [address] Radha Garcia EGFR-AF TURKMEN >60 Normal >=60 [facility] Comment on above: Performed By: #### L IPA, ROSS, CMP #### [facility] [address] [address] [address] Radha Garcia EGFR-NON AF TURKMEN >60 Normal >=60 [facility] Comment on above: Performed By: #### L IPA, ROSS, CMP #### [facility] [address] [address] [address] Radha Garcia Globulin (S) [Mass/Vol] 3.2 g/dL Normal [facility] Comment on above: Performed By: #### L IPA, ROSS, CMP #### [facility] [address] [address] [address] aRdha Garcia Glucose [Mass/Vol] 96 mg/dL Normal 74-106 [facility] Comment on above: Performed By: #### L IPA, ROSS, CMP #### [facility] [address] [address] [address] Radha Garcia Potassium [Moles/Vol] 3.3 mmol/L Critically low 3.5-5.1 [facility] Comment on above: Performed By: #### L IPA, ROSS, CMP #### [facility] [address] [address] [address] Radha Garcia Protein [Mass/Vol] 6.5 g/dL Normal 6.4-8.2 [facility] Comment on above: Performed By: #### L IPA, ROSS, CMP #### [facility] [address] [address] [address] Radha Garcia Sodium [Moles/Vol] 144 mmol/L Normal 136-145 [facility] Comment on above: Performed By: #### L ROSS BAKER, CMP #### [facility] [address] [address] [address] Radha Garcia Urea nitrogen [Mass/Vol] 6.0 mg/dL Critically low 7.0-18.0 [facility] Comment on above: Performed By: #### L ROSS BAKER, CMP #### [facility] [address] [address] [address] Radha Garcia Urea nitrogen/Creatinine [Mass ratio] 7.7 mg/mg Normal [facility] Comment on above: Performed By: #### L ROSS BAKER, CMP #### [facility] [address] [address] [address] Radha Garcia 36on 07-16-2022 36 Attempted to call an d schedule an EGD, but mail box is full unable to leave a message. Will mail her a letter. Normal [facility] 36on 06-06-2022 36 ----- Message from Mary Jo Javier MA sent at 05/26/2022 10:02 AM EST ----- For your review! Normal [facility] BETA HCG, QUANTITATIVE FOR E Don 05-25-2022 HCG.beta subunit Qn m[IU]/mL Normal <5.0 [facility] Comment on above: Order Comment: Speci men Type: BLOOD SPECIMEN Ordering Facility: [facility] Address: [address] [place], [place] [address] Result Comment: Nega tive Performed By: #### 2 4323-8, 3040-3, HCGED, 04865-9 #### [facility] CLIA [id number] [place] [address] [place] CBC W Auto Differential pane l (Bld)on 05-25-2022 Basophils (Bld) [#/Vol] 10*3/uL Normal <0.11 [facility] Comment on above: Order Comment: Speci men Type: BLOOD SPECIMEN Ordering Facility: [facility] Address: [address] [id number] Performed By: #### 5 7021-8 #### [facility] IA [id number] [address] [place] [address] [place] Basophils/100 WBC (Bld) 0.1 % Normal [facility] Comment on above: Order Comment: Speci men Type: BLOOD SPECIMEN Ordering Facility: [facility] Address: [address] [address] Performed By: #### 5 7021-8 #### [facility] IA [id number] [place] [address] [place] Differential cell count method Nom (Bld) Auto Normal [facility] Comment on above: Order Comment: Speci men Type: BLOOD SPECIMEN Ordering Facility: [facility] Address: [address] [place] [address] Performed By: #### 5 7021-8 #### [facility] IA [id number] [address] [place] [address] [place] Eosinophils (Bld) [#/Vol] 0.08 10*3/uL Normal <0.46 [facility] Comment on above: Order Comment: Speci men Type: BLOOD SPECIMEN Ordering Facility: [facility] Address: [address] [address] Performed By: #### 5 7021-8 #### [facility] IA [id number] [place] [address] [place] OF [facility] Eosinophils/100 WBC (Bld) 1.0 % Normal [facility] Comment on above: Order Comment: Speci men Type: BLOOD SPECIMEN Ordering Facility: [facility] Address: [address] [address] Performed By: #### 5 7021-8 #### [facility] IA [id number] [place] [address] [place] Erythrocyte distribution width (RBC) [Ratio] 12.4 % Normal 11.5-15.0 [facility] Comment on above: Order Comment: Speci men Type: BLOOD SPECIMEN Ordering Facility: [facility] Address: [address] Performed By: #### 5 7021-8 #### [facility] IA [id number] [address] [place] [address] [place] Hematocrit (Bld) [Volume fraction] 43.0 % Normal 36.0-46.0 [facility] Comment on above: Order Comment: Speci men Type: BLOOD SPECIMEN Ordering Facility: [facility] Address: [address] Performed By: #### 5 7021-8 #### [facility] IA [id number] [address] [place] [address] [place] Hemoglobin (Bld) [Mass/Vol] 14.2 g/dL Normal 11.5-15.5 [facility] Comment on above: Order Comment: Speci men Type: BLOOD SPECIMEN Ordering Facility: [facility] Address: [address] Performed By: #### 5 7021-8 #### [facility] IA [id number] [address] [place] [address] [place] Immature granulocytes (Bld) [#/Vol] 10*3/uL Normal <0.10 [facility] Comment on above: Order Comment: Speci men Type: BLOOD SPECIMEN Ordering Facility: [facility] Address: [address] Performed By: #### 5 7021-8 #### [facility] IA [id number] [address] [place] [address] [place] Immature granulocytes/100 WBC (Bld) 0.2 % Normal [facility] Comment on above: Order Comment: Speci men Type: BLOOD SPECIMEN Ordering Facility: [facility] Address: [address] Performed By: #### 5 7021-8 #### [facility] IA [id number] [address] [place] [address] [place] Lymphocytes (Bld) [#/Vol] 0.30 10*3/uL Low 1.00-4.00 [facility] Comment on above: Order Comment: Speci men Type: BLOOD SPECIMEN Ordering Facility: [facility] Address: [address] [address] Performed By: #### 5 7021-8 #### [facility] IA [id number] OF [facility] Lymphocytes/100 WBC (Bld) 3.6 % Normal [facility] Comment on above: Order Comment: Speci men Type: BLOOD SPECIMEN Ordering Facility: [facility] Address: [address] [address] Performed By: #### 5 7021-8 #### [facility] IA [id number] [place] [address] [place] MCH (RBC) [Entitic mass] 28.7 pg Normal 26.0-34.0 [facility] Comment on above: Order Comment: Speci men Type: BLOOD SPECIMEN Ordering Facility: [facility] Address: [address] [address] Performed By: #### 5 7021-8 #### [facility] IA [id number] [address] [place] MCHC (RBC) [Mass/Vol] 33.0 g/dL Normal 30.5-36.0 [facility] Comment on above: Order Comment: Speci men Type: BLOOD SPECIMEN Ordering Facility: [facility] Address: [address] [address] Performed By: #### 5 7021-8 #### [facility] IA [id number] [address] [place] MCV (RBC) [Entitic vol] 86.9 fL Normal 80.0-100.0 [facility] Comment on above: Order Comment: Speci men Type: BLOOD SPECIMEN Ordering Facility: [facility] Address: [address] [address] Performed By: #### 5 7021-8 #### [facility] IA [id number] [place] [address]. [place] [address] [place] Monocytes (Bld) [#/Vol] 0.19 10*3/uL Normal <0.87 [facility] Comment on above: Order Comment: Speci men Type: BLOOD SPECIMEN Ordering Facility: [facility] Address: [address] [address] Performed By: #### 5 7021-8 #### [facility] CLIA [id number] [address] [place] [address] [place] Monocytes/100 WBC (Bld) 2.3 % Normal [facility] Comment on above: Order Comment: Speci men Type: BLOOD SPECIMEN Ordering Facility: [facility] Address: [address] [address] Performed By: #### 5 7021-8 #### [facility] IA [id number] [address] [place] [address] [place] Neutrophils (Bld) [#/Vol] 7.62 10*3/uL High 1.45-7.50 [facility] Comment on above: Order Comment: Speci men Type: BLOOD SPECIMEN Ordering Facility: [facility] Address: [address] [address] Performed By: #### 5 7021-8 #### [facility] IA [id number] [address] [place] Neutrophils/100 WBC (Bld) 92.8 % Normal [facility] Comment on above: Order Comment: Speci men Type: BLOOD SPECIMEN Ordering Facility: [facility] Address: [address] [address] Performed By: #### 5 7021-8 #### [facility] IA [id number] [address] [place] [address] [place] Nucleated RBC (Bld) [#/Vol] 10*3/uL Normal <0.01 [facility] Comment on above: Order Comment: Speci men Type: BLOOD SPECIMEN Ordering Facility: [facility] Address: [address] [address] Performed By: #### 5 7021-8 #### [facility] IA [id number] [address] [place] [address] [place] Nucleated RBC/100 WBC (Bld) [Ratio] 0.0 /100 WBC Normal [facility] Comment on above: Order Comment: Speci men Type: BLOOD SPECIMEN Ordering Facility: [facility] Address: [address] Performed By: #### 5 7021-8 #### [facility] IA [id number] [address] [place] [address] [place] Platelet mean volume (Bld) [Entitic vol] 10.5 fL Normal 9.0-12.7 [facility] Comment on above: Order Comment: Speci men Type: BLOOD SPECIMEN Ordering Facility: [facility] Address: [address] [address] Performed By: #### 5 7021-8 #### [facility] IA [id number] [address] [place] [address] [place] Platelets (Bld) [#/Vol] 264 10*3/uL Normal 150-400 [facility] Comment on above: Order Comment: Speci men Type: BLOOD SPECIMEN Ordering Facility: [facility] Address: [address] Performed By: #### 5 7021-8 #### [facility] IA [id number] [address] [place] [address] [place] RBC (Bld) [#/Vol] 4.95 10*6/uL Normal 3.90-5.20 [facility] Comment on above: Order Comment: Speci men Type: BLOOD SPECIMEN Ordering Facility: [facility] Address: [address] [place], [place] [address] Performed By: #### 5 7021-8 #### [facility] IA [id number] [address] [place] [address] [place] WBC (Bld) [#/Vol] 8.22 10*3/uL Normal 3.70-11.00 [facility] Comment on above: Order Comment: Speci men Type: BLOOD SPECIMEN Ordering Facility: [facility] Address: [address] Performed By: #### 5 7021-8 #### [facility] CLIA [id number] [address] [place] [address] [place] [facility] OF [facility] Comprehensive metabolic 2000 panelon 05-25-2022 Albumin [Mass/Vol] 4.3 g/dL Normal 3.9-4.9 [facility] Comment on above: Order Comment: Speci men Type: BLOOD SPECIMEN Ordering Facility: [facility] Address: [address] Performed By: #### 2 4323-8, 3040-3, HCGED, 91983-6 #### [facility] CLIA [id number] [address] [place] [address] [place] ALP [Catalytic activity/Vol] 74 U/L Normal 34-123 [facility] Comment on above: Order Comment: Speci men Type: BLOOD SPECIMEN Ordering Facility: [facility] Address: [address] Performed By: #### 2 4323-8, 3040-3, HCGED, 62445-3 #### [facility] CLIA [id number] [address] [place] [address] [place] ALT [Catalytic activity/Vol] 23 U/L Normal 7-38 [facility] Comment on above: Order Comment: Speci men Type: BLOOD SPECIMEN Ordering Facility: [facility] Address: [address] [place] [address] Performed By: #### 2 4323-8, 3040-3, HCGED, 22646-4 #### [facility] CLIA [id number] [address] [place] [address] [place] Anion gap [Moles/Vol] 12 mmol/L Normal 9-18 [facility] Comment on above: Order Comment: Speci men Type: BLOOD SPECIMEN Ordering Facility: [facility] Address: [address] Performed By: #### 2 4323-8, 3040-3, HCGED, 46621-3 #### [facility] CLIA [id number] [address] [place] [address] [place] AST [Catalytic activity/Vol] 15 U/L Normal 13-35 [facility] Comment on above: Order Comment: Speci men Type: BLOOD SPECIMEN Ordering Facility: [facility] Address: [address] Performed By: #### 2 4323-8, 3040-3, HCGED, #### [facility] CLIA [id number] [address] [place] [address] [place] Bilirubin [Mass/Vol] 1.0 mg/dL Normal 0.2-1.3 [facility] Comment on above: Order Comment: Speci men Type: BLOOD SPECIMEN Ordering Facility: [facility] Address: [address] [place], [place] [address] Performed By: #### 2 4323-8, 3040-3, HCGED, #### [facility] CLIA [id number] [address] [place] [address] [place] Calcium [Mass/Vol] 8.8 mg/dL Normal 8.5-10.2 [facility] Comment on above: Order Comment: Speci men Type: BLOOD SPECIMEN Ordering Facility: [facility] Address: [address] [place], [place] [address] Performed By: #### 2 4323-8, 3040-3, HCGED, #### [facility] CLIA [id number] [address] [place] [address] [place] Chloride [Moles/Vol] 107 mmol/L High 97-105 [facility] Comment on above: Order Comment: Speci men Type: BLOOD SPECIMEN Ordering Facility: [facility] Address: [address] Performed By: #### 2 4323-8, 3040-3, HCGED, 45578-8 #### [facility] CLIA [id number] [address] [place] [address] [place] CO2 [Moles/Vol] 22 mmol/L Normal 22-30 [facility] Comment on above: Order Comment: Speci men Type: BLOOD SPECIMEN Ordering Facility: [facility] Address: [address] [place] [address] Performed By: #### 2 4323-8, 3040-3, HCGED, #### [facility] CLIA [id number] [address] [place] [address] [place] Creatinine [Mass/Vol] 0.70 mg/dL Normal 0.58-0.96 [facility] Comment on above: Order Comment: Speci men Type: BLOOD SPECIMEN Ordering Facility: [facility] Address: [address] [place] [address] Performed By: #### 2 4323-8, 3040-3, HCGED, #### [facility] CLIA [id number] [address] [place] [address] [place] ESTIMATED GLOMERULAR FILTRATION RATE 123 mL/min/1.73m??? Normal >=60 [facility] Comment on above: Order Comment: Speci men Type: BLOOD SPECIMEN Ordering Facility: [facility] Address: [address] [place] [address] Result Comment: Hazel mated Glomerular Filtration Rate [...] By: #### 2 4323-8, 3040-3, HCGED, #### [facility] CLIA [id number] [address] [place] [address] [place] Glucose [Mass/Vol] 97 mg/dL Normal 74-99 [facility] Comment on above: Order Comment: Speci men Type: BLOOD SPECIMEN Ordering Facility: [facility] Address: [address] Result Comment: The [place] [employer] (ADA) provides guidance for cutoff [...] Standards of Medical Care in Diabetes 2016, [place] [employer]. Diabetes Care. 2016.39(Suppl 1). Performed By: #### 2 4323-8, 3040-3, HCGED, #### [facility] CLIA [id number] [address] [place] [address] [place] Potassium [Moles/Vol] 3.9 mmol/L Normal 3.7-5.1 [facility] Comment on above: Order Comment: Speci men Type: BLOOD SPECIMEN Ordering Facility: [facility] Address: [address] [address] Performed By: #### 2 4323-8, 3040-3, HCGED, #### [facility] CLIA [id number] [address] [place] [address] [place] Protein [Mass/Vol] 6.9 g/dL Normal 6.3-8.0 [facility] Comment on above: Order Comment: Speci men Type: BLOOD SPECIMEN Ordering Facility: [facility] Address: [address] [place] [address] Performed By: #### 2 4323-8, 3040-3, HCGED, #### [facility] CLIA [id number] [address] [place] [address] [place] Sodium [Moles/Vol] 141 mmol/L Normal 136-144 [facility] Comment on above: Order Comment: Speci men Type: BLOOD SPECIMEN Ordering Facility: [facility] Address: [address] [place] [address] Performed By: #### 2 4323-8, 3040-3, HCGED, #### [facility] CLIA [id number] [address] [place] [address] [facility] Urea nitrogen [Mass/Vol] 13 mg/dL Normal 7-21 [facility] Comment on above: Order Comment: Speci men Type: BLOOD SPECIMEN Ordering Facility: [facility] Address: [address] [place] [address] Performed By: #### 2 4323-8, 3040-3, HCGED, 94042-2 #### [facility] CLIA [id number] [address] [place] [address] [facility] ECG COMPLETEon 05-25-2022 ECG COMPLETE Ventricular Rate : 9 1 BPM Atrial Rate : 92 BPM P-R Interval : 150 ms QRS Duration : 85 ms Q-T Interval : 341 ms QTC Calculation(Bazett) : 420 ms Calculated P [place] : 33 degrees Calculated R [place] : 21 degrees Calculated T [place] : 24 degrees Sinus rhythm Low voltage, precordial leads Otherwise Normal ECG *SEE EPIC NOTE FOR INTERPRETATION Confirmed by KHADAR LUNA MD ([id number]), rewrite editor BE TORRES ([id number]) on 05/26/2022 1:50:52 PM NAME : JOVON LOPEZ PID : [id number] : 1995 Gender : Female Race : ORD : [id number] Procedure Date : May 24 2022 23:05:41 Edit Date : May 26 2022 13:50:57 Diagnosis: Sinus rhythm Low voltage, precordial leads Otherwise Normal ECG *SEE EPIC NOTE FOR INTERPRETATION Confirmed by KHADAR LUNA MD ([id number]), rewrite editor BE TORRES ([id number]) on 05/26/2022 1:50:52 PM Test Reason : Chest Pain Location : 302 : ED AVED-16 Overread By : KHADAR LUNA MD Edited By : BE TORRES Referred By : , Acquired by : [id number], [facility] ED NOTEon 05-25-2022 ED NOTE HNO ID: [id number] Author: Diamond Plata RN Service: Nursing Author [...] ED in no acute distress. DIAMOND PL[facility] [phone] [facility] ED PROV NOTEon 05-25-2022 ED PROV NOTE HNO ID: [id number] Author: Khadar Luna DO Service: Emergency Medicine [...] which was unremarkable. She followed up with stand up comedian yesterday, was told that her symptoms may [...] Clinical Impr (more content not included)... Normal [facility] Lipase SerPl-cCncon 05-25-20 Lipase [Catalytic activity/Vol] 15 U/L Low 16-61 [facility] Comment on above: Order Comment: [facility] Type: BLOOD SPECIMEN Order[facility] Facility[facility] Address: [address] Performed By: #### 2 4323-8, 3040-3, HCGED, #### [facility] CLIA [id number] [address] [place] [address] [place] Magnesium SerPl-mCncon 05-25 Magnesium [Mass/Vol] 1.9 mg/dL Normal 1.7-2.3 [facility] Comment on above: Order Comment: [facility] Type: BLOOD SPECIMEN Ordering Facility: [facility] Address: [address] [id number] Performed By: #### 2 4323-8, 3040-3, HCGED, #### [facility] CLIA [id number] [address] [place] [address] [place] Urinalysis complete panel (U )on 05-25-2022 Bilirubin Ql (U) Negative Normal Negative [facility] Comment on above: Order Comment: Tad vu Type: URINE SPECIMEN Ordering Facility: [facility] Address: [address] Performed By: #### 2 4356-8 #### [facility] [id number] [address] [place] [address] [place] Clarity (Unsp spec) Clear Normal Clear [facility] Comment on above: Order Comment: Speci men Type: URINE SPECIMEN Ordering Facility: [facility] Address: [address] [address] Performed By: #### 2 4356-8 #### [facility] [id number] [place] [address] [place] Color (U) Yellow Normal Yellow [facility] Comment on above: Order Comment: Speci men Type: URINE SPECIMEN Order[facility] Facility: [facility] Address: [address] [address] Performed By: #### 2 4356-8 #### [facility] [id number] [address] [place] [address] [place] Epithelial cells LM.HPF (Urine sed) [#/Area] Few Normal [facility] Comment on above: Order Comment: Speci men Type: URINE SPECIMEN Order[facility] Facility: [facility] Address: [address] [address] Performed By: #### 2 4356-8 #### [facility] [id number] [address] [place] [address] [place] Glucose Test strip (U) [Mass/Vol] Negative Normal Negative [facility] Comment on above: Order Comment: Speci men Type: URINE SPECIMEN Ordering Facility: [facility] Address: [address] [address] Performed By: #### 2 4356-8 #### [facility] [id number] [address] [place] [address] [place] Hemoglobin Ql (U) Negative Normal Negative [facility] Comment on above: Order Comment: Speci men Type: URINE SPECIMEN Ordering Facility: [facility] Address: [address] [address] Performed By: #### 2 4356-8 #### [facility] [place] [id number] [place] [id number] [place] [address] OF [facility] Ketones Ql (U) 3+ Abnormal Trace, Negative [facility] Comment on above: Order Comment: Speci men Type: URINE SPECIMEN Ordering Facility: [facility] Address: [address] [address] Performed By: #### 2 4356-8 #### [facility] [place] [id number] [address] [place] [id number] [place] [address] OF [place] Leukocyte esterase Test strip Ql (U) 1+ Abnormal Negative [facility] Comment on above: Order Comment: Speci men Type: URINE SPECIMEN Ordering Facility: [facility] Address: [address] [address] Performed By: #### 2 4356-8 #### [facility] [id number] [address] [place] [address] [place] Nitrite Ql (U) Negative Normal Negative [facility] Comment on above: Order Comment: Speci men Type: URINE SPECIMEN Ordering Facility: [facility] Address: [address] [address] Performed By: #### 2 4356-8 #### [facility] IA [id number] [address] [place] [address] [place] pH (U) 5.5 [pH] Normal 5.0-8.0 [facility] Comment on above: Order Comment: Speci men Type: URINE SPECIMEN Ordering Facility: [facility] Address: [address] [address] Performed By: #### 2 4356-8 #### [facility] IA [id number] [address] [place], [place] [id number] [place] [facility] Protein (U) [Mass/Vol] Trace Normal Trace , Negative [facility] Comment on above: Order Comment: Speci men Type: URINE SPECIMEN Ordering Facility: [facility] Address: [address] [address] Performed By: #### 2 4356-8 #### [facility] [place] [id number] [address] STATES [place] RBC LM.HPF (Urine sed) [#/Area] 0-3 /HPF Normal 0-3 /HPF [facility] Comment on above: Order Comment: Speci men Type: URINE SPECIMEN Ordering Facility: [facility] Address: [address] [place] [address] Performed By: #### 2 4356-8 #### [facility] IA [id number] [place] [address] [place] Specific gravity (U) [Rel density] 1.026 Normal 1.005-1.030 [facility] Comment on above: Order Comment: Speci men Type: URINE SPECIMEN Ordering Facility: [facility] Address: [address] [place] [address] Performed By: #### 2 4356-8 #### [facility] [place] [id number] [address] [place] [address] Urobilinogen Ql (U) 0.2 EU/dL Normal 0.2-1.0 EU/dL [facility] Comment on above: Order Comment: Speci men Type: URINE SPECIMEN Ordering Facility: [facility] Address: [address] [place] [address] Performed By: #### 2 4356-8 #### [facility] IA [id number] [address] [place] [address] [place] WBC LM.HPF (Urine sed) [#/Area] 6-10 /HPF Abnormal 0-5 /HPF [facility] Comment on above: Order Comment: Speci men Type: URINE SPECIMEN Ordering Facility: [facility] Address: [address] [place] [address] Performed By: #### 2 4356-8 #### [facility] IA [id number] [place] [id number] [place] [address] [place] ED NOTEon 05-24-2022 ED NOTE HNO ID: [id number] Author: Gabby Barone, RN Service: ? Author Type: Registered Nurse Type: ED Notes Filed: 05/24/2022 9:23 PM Note Text: Patient presents with nausea, vomiting, diarrhea, and centralized abdominal pain for about 5 months. States she has lost about 45 pounds and is unable to eat or drink without pain. [facility] [phone] [facility] Office Visiton 05-23-2022 Follow-up visit [id number] Jovon Lopez 1995 F Date Provider Department Center 05/23/2022 Kevan-GONZALEZ POWELL [facility] No family history on file Level of Service:46512 [place] OFFICE/OUTPATIENT ESTABLISHED MOD MDM 30-39 MIN () Reason for Visit and Comments: New Patient [632] Fatigue [46] - Had gallbladder removed in 03/2021, Dr. Powell found and fixed leak 04/2021, pt is having major problems with eating and drinking. Was referred back in 2020 [facility] Automated erythrocytes count in urine sediment (number/area)Ordered By: Reggie Maynard on 05-17-2022 RBC Auto (Urine sed) [#/Area] 5-9 [HPF] 0-4 [facility] Automated leukocytes count i n urine sediment (number/area)Ordered By: Reggie Maynard on 05-17-2022 WBC Auto (Urine sed) [#/Area] 50-100 [HPF] 0-4 [facility] Basophils Auto (Bld) [#/Vol] Ordered By: Reggie Maynard on 05-17-2022 Basophils (Bld) [#/Vol] 0.1 10*3/uL 0.0-0.2 [facility] Basophils/100 WBC Auto (Bld) Ordered By: Reggie Maynard on 05-17-2022 Basophils/100 WBC (Bld) 0.7 % . [facility] Bilirubin Test strip Ql (U)O rdered By: Reggie Maynard on 05-17-2022 Bilirubin Ql (U) Negative Negative [facility] Body fluid albumin measureme nt (mass/volume)Ordered By: Reggie Maynard on 05-17-2022 Albumin (Body fld) [Mass/Vol] 3.8 g/dL 3.2-5.5 [facility] Color Auto (U)Ordered By: Hadley red Aleyda on 05-17-2022 Color (U) Yellow Yellow [facility] Creatinine and Glomerular fi ltration rate.predicted panel (S/P/Bld)Ordered By: Reggie Maynard on 05-17-2022 Creatinine [Mass/Vol] 0.64 mg/dL 0.44-1.[address] [facility] Direct bilirubin measurement Ordered By: Reggie Maynard on 05-17-2022 Bilirubin.direct [Mass/Vol] 0.1 mg/dL 0.0-0.4 [facility] Eosinophils Auto (Bld) [#/Vo l]Ordered By: Reggie Maynard on 05-17-2022 Eosinophils (Bld) [#/Vol] 0.3 10*3/uL 0.0-0.45 [facility] Eosinophils/100 WBC Auto (Bl d)Ordered By: Reggie Maynard on 05-17-2022 Eosinophils/100 WBC (Bld) 4.2 % . [facility] Erythrocyte distribution wid th Auto (RBC) [Ratio]Ordered By: Reggie Maynard on 05-17-2022 Erythrocyte distribution width (RBC) [Ratio] 13.0 % 11.9-15.3 [facility] Estimated glomerular filtrat ion rate (GFR) non- AmericanOrdered By: Reggie Maynard on 05-17-2022 GFR/1.73 sq M.predicted among non-blacks MDRD (S/P/Bld) [Vol rate/Area] > 60 mL/Min [facility] Globulin Calc (S) [Mass/Vol] Ordered By: Reggie Maynard on 05-17-2022 Globulin (S) [Mass/Vol] 3.3 g/dL [facility] HCG ( test) IA.rapi d Ql (U)Ordered By: Reggie Maynard on 05-17-2022 HCG ( test) Ql (U) Negative [facility] Hematocrit Auto (Bld) [Volum e fraction]Ordered By: Reggie Maynard on 05-17-2022 Hematocrit (Bld) [Volume fraction] 42.9 % 34.0-46.4 [facility] Hemoglobin [Mass/volume] in BloodOrdered By: Reggie Maynard on 05-17-2022 Hemoglobin (Bld) [Mass/Vol] 14.5 g/dL 11.8-15.4 [facility] Ketones Auto test strip (U) [Mass/Vol]Ordered By: Reggie Maynard on 05-17-2022 Ketones (U) [Mass/Vol] Negative Negative Fi [facility] - Chemistry and C hemistry - challengeOrdered By: Reggie Maynard on 05-17-2022 Lipase [Catalytic activity/Vol] 30.0 U/L 22-51 [facility] - UrinalysisOrder ed By: Reggie Maynard on 05-17-2022 Hyaline casts LM Ql (Urine sed) 0-8 [LPF] 0-8 [facility] Leukocytes [#/volume] correc gema for nucleated erythrocytes in Blood by Automated counOrdered By: Reggie Maynard on 05-17-2022 WBC corrected for nucl RBC Auto (Bld) [#/Vol] 7.0 10*3/uL 3.8-11.6 [facility] Lymphocytes Auto (Bld) [#/Vo l]Ordered By: Reggie Maynard on 05-17-2022 Lymphocytes (Bld) [#/Vol] 1.4 10*3/uL 1.00-4.8 [facility] Lymphocytes/100 WBC Auto (Bl d)Ordered By: Reggie Maynard on 05-17-2022 Lymphocytes/100 WBC (Bld) 20.4 % . [facility] MCH Auto (RBC) [Entitic mass ]Ordered By: Reggie Maynard on 05-17-2022 MCH (RBC) [Entitic mass] 29.6 pg 24.7-34.3 [facility] MCHC Auto (RBC) [Mass/Vol]Or dered By: Reggie Maynard on 05-17-2022 MCHC (RBC) [Mass/Vol] 33.7 g/dL 32.0-35.[address] [facility] MCV Auto (RBC) [Entitic vol] Ordered By: Reggie Maynard on 05-17-2022 MCV (RBC) [Entitic vol] 87.9 fL 80-100 [facility] Monocyte distribution width [Entitic volume] in Blood by AutomatedOrdered By: Reggie Maynard on 05-17-2022 Monocyte distribution width Auto (Bld) [Entitic vol] 17.93 % 0.00-20.00 [facility] Monocytes Auto (Bld) [#/Vol] Ordered By: Reggie Maynard on 05-17-2022 Monocytes (Bld) [#/Vol] 0.3 10*3/uL 0.0-0.8 [facility] Monocytes/100 WBC Auto (Bld) Ordered By: Reggie Maynard on 05-17-2022 Monocytes/100 WBC (Bld) 4.1 % . [facility] Mucus LM Ql (Urine sed)Order ed By: Reggie Maynard on 05-17-2022 Mucus Ql (Urine sed) 2+ [LPF] [facility] Neutrophils Auto (Bld) [#/Vo l]Ordered By: Reggie Maynard on 05-17-2022 Neutrophils (Bld) [#/Vol] 4.9 10*3/uL 1.8-7.7 [facility] Neutrophils/100 WBC Auto (Bl d)Ordered By: Reggie Maynard on 05-17-2022 Neutrophils/100 WBC (Bld) 70.6 % . [facility] Nitrite Test strip Ql (U)Ord ered By: Reggie Maynard on 05-17-2022 Nitrite Ql (U) Negative Negative [facility] No Panel InformationOrdered By: Reggie Maynard on 05-17-2022 Estimated GFR () > 60 mL/Min [facility] Comment on above: GFR estimated refere nce range: According to KDOQI guidelines, <60 ml/min/1.73m2 is sufficient to diagnose a patient with chronic kidney disease. Pharmacy Creatinine Clearance (Chem 111.16 [facility] Nucleated erythrocytes [Pres ence] in Blood by Automated countOrdered By: Reggie Maynard on 05-17-2022 Nucleated RBC Auto Ql (Bld) 0.2 /100{WBC} 0-0.5 [facility] Platelet mean volume Auto (B ld) [Entitic vol]Ordered By: Reggie Maynard on 05-17-2022 Platelet mean volume (Bld) [Entitic vol] 8.7 fL 6.3-10.7 [facility] Platelets Auto (Bld) [#/Vol] Ordered By: Reggie Maynard on 05-17-2022 Platelets (Bld) [#/Vol] 323 10*3/uL 150-450 [facility] Protein Auto test strip (U) [Mass/Vol]Ordered By: Reggie Maynard on 05-17-2022 Protein (U) [Mass/Vol] Negative Negative [facility] Protein [Mass/volume] in Ser um or PlasmaOrdered By: Reggie Maynard on 05-17-2022 Protein [Mass/Vol] 7.1 g/dL 6.1-7.9 [facility] RBC Auto (Bld) [#/Vol]Ordere d By: Reggie Maynard on 05-17-2022 RBC (Bld) [#/Vol] 4.88 10*6/uL 3.60-5.[address] [facility] Serum or plasma alanine rangel otransferase measurement without P-5'-P (enzymatic activiOrdered By: Reggie Maynard on 05-17-2022 ALT No additional P-5'-P [Catalytic activity/Vol] 22 U/L 10-60 [facility] Serum or plasma albumin/glob ulin mass ratioOrdered By: Reggie Maynard on 05-17-2022 Albumin/Globulin [Mass ratio] 1.2 {ratio} [facility] Serum or plasma alkaline ely sphatase measurement (enzymatic activity/volume)Ordered By: Reggie Maynard on 05-17-2022 ALP [Catalytic activity/Vol] 56 U/L 32-92 [facility] Serum or plasma anion gap de terminationOrdered By: Reggie Maynard on 05-17-2022 Anion gap [Moles/Vol] 14.6 mmol/L 6.0-15.0 [facility] Serum or plasma aspartate am inotransferase measurement (enzymatic activity/volume)Ordered By: Reggie Maynard on 05-17-2022 AST [Catalytic activity/Vol] 16 U/L 10-42 [facility] Serum or plasma calcium bryon urement (mass/volume)Ordered By: Reggie Maynard on 05-17-2022 Calcium [Mass/Vol] 8.9 mg/dL 8.2-10.2 [facility] Serum or plasma chloride jamir surement (moles/volume)Ordered By: Reggie Maynard on 05-17-2022 Chloride [Moles/Vol] 106 mmol/L 95-114 [facility] Serum or plasma glucose bryon urement (mass/volume)Ordered By: Reggie Maynard on 05-17-2022 Glucose [Mass/Vol] 94 mg/dL 70-100 [facility] Comment on above: ADA recommended refe rence rangeRandom Glucose Reference Range is dependent on time and content of last meal. Glucose of more than 200 mg/dL in a nonstressed, ambulatory subject supports the diagnosis of Diabetes Mellitus. Serum or plasma non-glucuron idated bilirubin measurement (mass/volume)Ordered By: Reggie Maynard on 05-17-2022 Bilirubin.indirect [Mass/Vol] 0.7 mg/dL [facility] Serum or plasma potassium me asurement (moles/volume)Ordered By: Reggie Maynard on 05-17-2022 Potassium [Moles/Vol] 4.3 mmol/L 3.5-5.[address] [facility] Serum or plasma sodium measu rement (moles/volume)Ordered By: Reggie Maynard on 05-17-2022 Sodium [Moles/Vol] 138 mmol/L 136-146 [facility] Serum or plasma total biliru bin measurement (mass/volume)Ordered By: Reggie Maynard on 05-17-2022 Bilirubin [Mass/Vol] 0.8 mg/dL 0.3-1.2 [facility] Serum or plasma total carbon dioxide measurement (moles/volume)Ordered By: Reggie Maynard on 05-17-2022 CO2 [Moles/Vol] 21.7 mmol/L 22.0-30.0 [facility] Serum or plasma urea nitroge n measurement (mass/volume)Ordered By: Reggie Maynard on 05-17-2022 Urea nitrogen [Mass/Vol] 15 mg/dL 9-23 [facility] Specific gravity Auto test s trip (U) [Rel density]Ordered By: Reggie Maynard on 05-17-2022 Specific gravity (U) [Rel density] 1.028 1.001-1.030 [facility] Squamous epithelial cells de tection in urine sediment by light microscopyOrdered By: Reggie Maynard on 05-17-2022 Epithelial cells.squamous LM Ql (Urine sed) 3-4 [HPF] 0-2 [facility] Urine bacteria detection by automated methodOrdered By: Reggie Maynard on 05-17-2022 Bacteria Auto Ql (U) None seen None Seen [facility] Urine clarity by refractomet ry automatedOrdered By: Reggie Maynard on 05-17-2022 Clarity Refractometry automated (U) Clear Clear [facility] Urine glucose measurement by automated test strip (mass/volume)Ordered By: Reggie Maynard on 05-17-2022 Glucose Auto test strip (U) [Mass/Vol] Normal mg/dL Normal [facility] Urine hemoglobin detection b y automated test stripOrdered By: Reggie Maynard on 05-17-2022 Hemoglobin Auto test strip Ql (U) Negative Negative [facility] Urine leukocyte esterase det ection by automated test stripOrdered By: Reggie Maynard on 05-17-2022 Leukocyte esterase Auto test strip Ql (U) 3+ Negative [facility] Urine sediment renal epithel ial cell count by microscopy (number/high power field)Ordered By: Reggie Maynard on 05-17-2022 Epithelial cells.renal LM.HPF (Urine sed) [#/Area] None seen [HPF] 0-1 [facility] Urobilinogen Auto test strip (U) [Mass/Vol]Ordered By: Reggie Maynard on 05-17-2022 Urobilinogen (U) [Mass/Vol] Normal mg/dL Normal [facility] WBC Auto (Bld) [#/Vol]Ordere d By: Reggie Maynard on 05-17-2022 WBC (Bld) [#/Vol] 7.0 10*3/uL 3.8-11.6 [facility] pH Auto test strip (U)Ordere d By: Reggie Maynard on 05-17-2022 pH (U) 5.5 [pH] 5.0-9.0 [facility] AMYLASEon 05-01-2022 Amylase [Catalytic activity/Vol] 61 U/L Normal 25-115 [facility] Comment on above: Performed By: #### L IPA, CMP, ROSS #### [facility] [address] [address] [address] Radha Garcia CBC AUTO DIFFon 05-01-2022 BASO # 0.0 103/ul Normal 0.0-0.1 [facility] Comment on above: Performed By: #### C BC #### [facility] [address] [place] [address] Dr. Radha Garcia Basophils/100 WBC (Bld) 0.4 % Normal 0.2-2.0 [facility] Comment on above: Performed By: #### C BC #### [facility] [address] [place] [address] Dr. Radha Garcia EO # 0.2 103/ul Normal 0.0-0.7 [facility] Comment on above: Performed By: #### C BC #### [facility] [address] [place] [address] Dr. Radha Garcia Eosinophils/100 WBC (Bld) 3.0 % Normal 0.9-7.0 [facility] Comment on above: Performed By: #### C BC #### [facility] [address] [place] [address] Dr. Radha Garcia Erythrocyte distribution width (RBC) [Ratio] 12.4 % Normal 11.0-15.0 [facility] Comment on above: Performed By: #### C BC #### [facility] [address] [place] [address] Dr. Radha Garcia Hematocrit (Bld) [Volume fraction] 40.5 % Normal 36.0-48.0 [facility] Comment on above: Performed By: #### C BC #### [facility] [address] [place] [address] Dr. Radha Garcia Hemoglobin (Bld) [Mass/Vol] 13.7 g/dL Normal 12.0-16.0 [facility] Comment on above: Performed By: #### C BC #### [facility] [address] [place] [address] Dr. Radha Garcia IG # 0.01 10e3/ul Normal 0.00-0.03 [facility] Comment on above: Performed By: #### C BC #### [facility] [address] [place] [address] Dr. Radha Garcia IG % 0.1 % Normal 0.0-0.5 [facility] Comment on above: Performed By: #### C BC #### [facility] [address] [place] [address] Dr. Radha Garcia LYMPH # 2.1 103/ul Normal 1.2-3.8 [facility] Comment on above: Performed By: #### C BC #### [facility] [address] [place] [address] Dr. Radha Garcia Lymphocytes/100 WBC (Bld) 30.7 % Normal 20.5-60.0 [facility] Comment on above: Performed By: #### C BC #### [facility] [address] [place] [address] Dr. Radha Garcia MANUAL DIFF REQ NO Normal [facility] Comment on above: Performed By: #### C BC #### [facility] [address] [place] [address] Dr. Radha Garcia MCH (RBC) [Entitic mass] 29.9 pg Normal 26.7-34.0 [facility] Comment on above: Performed By: #### C BC #### [facility] [address] [place] [address] Dr. Radha Garcia MCHC (RBC) [Mass/Vol] 33.8 g/dL Normal 29.9-35.2 [facility] Comment on above: Performed By: #### C BC #### [facility] [address] [place] [address] Dr. Radha Garcia MCV (RBC) [Entitic vol] 88.4 fL Normal 81.0-99.0 [facility] Comment on above: Performed By: #### C BC #### [facility] [address] [place] [address] Dr. Radha Garcia MONO # 0.5 103/ul Normal 0.3-0.8 [facility] Comment on above: Performed By: #### C BC #### [facility] [address] [place] [address] Dr. Radha Garcia Monocytes/100 WBC (Bld) 6.6 % Normal 1.7-12.0 [facility] Comment on above: Performed By: #### C BC #### [facility] [address] [place] [address] Dr. Radha Garcia NEUT # 4.1 103/ul Normal 1.4-6.5 [facility] Comment on above: Performed By: #### C BC #### [facility] [address] [place] [address] Dr. Radha Garcia Neutrophils/100 WBC (Bld) 59.2 % Normal 43.0-75.0 [facility] Comment on above: Performed By: #### C BC #### [facility] [address] [place] [address] Dr. Radha Garcia Platelet mean volume (Bld) [Entitic vol] 10.6 fL Normal 9.5-13.5 [facility] Comment on above: Performed By: #### C BC #### [facility] [address] [place] [address] Dr. Radha Garcia PLT 263 103/ul Normal 150-450 [facility] Comment on above: Performed By: #### C BC #### [facility] [address] [place] [address] Dr. Radha Garcia RBC 4.58 106/ul Normal 4.20-5.40 [facility] Comment on above: Performed By: #### C BC #### [facility] [address] [place] [address] Dr. Radha Garcia WBC 6.9 103/ul Normal 4.0-11.0 [facility] Comment on above: Performed By: #### C BC #### [facility] [address] [place] [address] ABD/PELV W CONon [...] by: RAFA KAPLAN Date: 2022-05-01 03:30 Normal [facility] LIPASEon 05-01-2022 Lipase [Catalytic activity/Vol] 63.0 U/L Critically low 73.0-393.0 [facility] Comment on above: Performed By: #### L IPA CMP, ROSS #### [facility] [address] [place] [address] Dr. Radha Garcia PREG HCG QUALon 05-01-2022 , QUAL Negative Normal NEGATIVE [facility] Comment on above: Performed By: #### C BC #### [facility] [address] [place] [address] Dr. Radha Garcia PROF 14(COMP METB)on 022 Albumin [Mass/Vol] 3.9 g/dL Normal 3.4-5.0 [facility] Comment on above: Performed By: #### L IPA CMP, ROSS #### [facility] [address] [place] [address] Dr. Radha Garcia Albumin/Globulin [Mass ratio] 1.2 {ratio} Normal [facility] Comment on above: Performed By: #### L IPA CMP, ROSS #### [facility] [address] [place] [address] Dr. Radha Garcia ALP [Catalytic activity/Vol] 73 U/L Normal 46-116 [facility] Comment on above: Performed By: #### L IPA, CMP, ROSS #### [facility] [address] [address] [address] Radha Garcia ALT [Catalytic activity/Vol] 13 U/L Critically low 14-59 [facility] Comment on above: Performed By: #### L IPA, CMP, ROSS #### [facility] [address] [address] [address] Radha Garcia Anion gap [Moles/Vol] 9.0 mmol/L Normal [facility] Comment on above: Performed By: #### L IPA, CMP, ROSS #### [facility] [address] [address] [address] Radha Garcia AST [Catalytic activity/Vol] 12 U/L Critically low 15-37 [facility] Comment on above: Performed By: #### L IPA, CMP, ROSS #### [facility] [address] [address] [address] Radha Garcia Bilirubin [Mass/Vol] 0.6 mg/dL Normal 0.2-1.0 [facility] Comment on above: Performed By: #### L IPA, CMP, ROSS #### [facility] [address] [address] [address] Radha Garcia Calcium [Mass/Vol] 8.7 mg/dL Normal 8.5-10.1 [facility] Comment on above: Performed By: #### L IPA, CMP, ROSS #### [facility] [address] [address] [address] Radha Garcia Chloride [Moles/Vol] 106 mmol/L Normal 98-107 [facility] Comment on above: Performed By: #### L IPA, CMP, ROSS #### [facility] [address] [address] [address] Radha Garcia CO2 [Moles/Vol] 26.4 mmol/L Normal 21.0-32.0 [facility] Comment on above: Performed By: #### L IPA, CMP, ROSS #### [facility] [address] [address] [address] Radha Garcia Creatinine [Mass/Vol] 0.71 mg/dL Normal 0.55-1.02 [facility] Comment on above: Performed By: #### L IPA, CMP, ROSS #### [facility] [address] [address] [address] Radha Garcia EGFR-AF TURKMEN >60 Normal >=60 [facility] Comment on above: Performed By: #### L IPA, CMP, ROSS #### [facility] [address] [address] [address] Radha Garcia EGFR-NON AF TURKMEN >60 Normal >=60 [facility] Comment on above: Performed By: #### L IPA, CMP, ROSS #### [facility] [address] [address] [address] Radha Garcia Globulin (S) [Mass/Vol] 3.3 g/dL Normal [facility] Comment on above: Performed By: #### L IPA, CMP, ROSS #### [facility] [address] [address] [address] Radha Garcia Glucose [Mass/Vol] 89 mg/dL Normal 74-106 [facility] Comment on above: Performed By: #### L IPA, CMP, ROSS #### [facility] [address] [address] [address] Radha Garcia Potassium [Moles/Vol] 3.4 mmol/L Critically low 3.5-5.1 [facility] Comment on above: Performed By: #### L IPA, CMP, ROSS #### [facility] [address] [address] [address] Radha Garcia Protein [Mass/Vol] 7.2 g/dL Normal 6.4-8.2 [facility] Comment on above: Performed By: #### L IPA, CMP, ROSS #### [facility] [address] [address] [address] Radha Garcia Sodium [Moles/Vol] 138 mmol/L Normal 136-145 [facility] Comment on above: Performed By: #### L IPA, CMP, ROSS #### [facility] [address] [place], [place] [address] Dr. Radha Garcia Urea nitrogen [Mass/Vol] 12.0 mg/dL Normal 7.0-18.0 [facility] Comment on above: Performed By: #### L IPA, CMP, ROSS #### [facility] [address] [place], [place] [address] Dr. Radha Garcia Urea nitrogen/Creatinine [Mass ratio] 16.9 mg/mg Normal [facility] Comment on above: Performed By: #### L IPA, CMP, ROSS #### [facility] [address] [place], [place] [address] Dr. Radha Garcia Q - DRUG TOX MONITORING CONFIRMATION,URINEon 05-23-2021 Amphetamines Negative Normal <500 [facility] Respiratory Medicine Physician Comment on above: Order Comment: [facility] performed at: [employer] [facility], [facility] [address], [address] [place] [address], [address] [place] [address], Game [employer] Manager: Shamar Colunga MD [facility] Date/Time: [facility] Results Received Date/Time: [facility] Reported Date/Time: FASTING: NO Performed By: #### [id number] #### [facility] [address] [place] [address] Barbiturates Negative Normal <300 [facility] Respiratory Medicine Physician Comment on above: Order Comment: [facility] performed at: [employer] [facility], [address], [address] [place] [address], [address] [place] [address], [employer] Pres[employer] Manager: Shamar Colunga MD [facility] Date/Time: [facility] Results Received Date/Time: [facility] Reported Date/Time: FASTING: NO Performed By: #### 9 [id number] #### [facility] [address] [place] [address] Benzodiazepines Negative Normal <100 [facility] Respiratory Medicine Physician Comment on above: Order Comment: [facility] performed at: [employer] [facility], [address] [place], [place], [address] [place] [address], [employer] Manager: Shamar Colunga MD [facility] Date/Time: [facility] Results Received Date/Time: [facility] Reported Date/Time: FASTING: NO Performed By: #### 9 [id number] #### [facility] [address] [place] [address] Cocaine Metabolite Negative Normal <150 [facility] Comment on above: Order Comment: [facility] performed at: [employer] [place] [facility], [address] , [address] [place], [place], [address] [place] [address], [employer] Pres[employer] Manager: Shamar Colunga MD [facility] Date/Time: [facility] Results Received Date/Time: [facility] Reported Date/Time: FASTING: NO Performed By: #### [id number] #### [facility] [address] [place] [address] COMMENT SEE NOTE Normal [facility] Comment on above: Order Comment: [facility] performed at: [facility], [facility], [address] [facility], [address] [place], [place], [address] [place] [address], Game Preserve Manager: Shamar Colunga MD [facility] Collection Date/Time: [facility] Results Received Date/Time: [facility] Reported Date/Time: FASTING: NO Result Comment: See Note 2 Note 1 This test was developed and its analytical performance characteristics have been determined by [facility]. It has not been cleared or approved [...] interpreting these drug results, please contact a [facility] Toxic[facility] Specialist: [phone] M-F, 8am-6pm EST. Performed By: #### 9 [id number] #### [facility] Default [address] [place] [address] Marijuana Metabolite 73 ng/mL High <5 [facility] Specialist Comment on above: Order Comment: Quest Testing performed at: [place], [place], [address] [place] [address], [address] [place] [address], [id number], Game Preserve Manager: Shamar Colunga MD [facility] Collection Date/Time: [facility] Results Received Date/Time: [facility] Reported Date/Time: FASTING: NO Result Comment: See Note 1 Performed By: #### 9 1486 #### [facility] Default [address] [place] [address] Marijuana Metabolite 20 Positive Abnormal <20 N [facility] Specialist Comment on above: Order Comment: Quest Testing performed at: [place], [place], [address] [place] [address], [address] [place] [address], [address] [place] [address], Game Preserve Manager: Shamar Colunga MD [facility] Collection Date/Time: [facility] Results Received Date/Time: [facility] Reported Date/Time: FASTING: NO Performed By: #### 9 [id number] #### [facility] [address] [place] [address] Methadone Metabolite Negative Normal <100 [facility] Specialist Comment on above: Order Comment: [facility] Testing performed at: [employer] [facility], [address] [place] [address], [address] [place] [address], [address] [place] [address], Game Preserve Manager: Shamar Colunga MD [facility] Collection Date/Time: [facility] Results Received Date/Time: [facility] Reported Date/Time: FASTING: NO Performed By: #### 9 [id number] #### [facility] Default [address] [place] [address] Opiates Negative Normal <100 [facility] Specialist Comment on above: Order Comment: [facility] Testing performed at: [place], [place] [facility], [address] [place] [address], [address] [place] [address], [address] [place] [address], Game Preserve Manager: Shamar Colunga MD [facility] Collection Date/Time: [facility] Results Received Date/Time: [facility] Reported Date/Time: FASTING: NO Performed By: #### 9 1486 #### [facility] Default [address] [place] [address] Oxycodone Negative Normal <100 [facility] Specialist Comment on above: Order Comment: [facility] Testing performed at: [place], [place], [address], [address] [place] [address], [address] [place] [address], Game Preserve Manager: Shamar Colunga MD [facility] Collection Date/Time: [facility] Results Received Date/Time: [facility] Reported Date/Time: FASTING: NO Performed By: #### 9 [id number] #### [facility] [address] [place] [address] Phencyclidine Negative Normal <25 [facility] Specialist Comment on above: Order Comment: [facility] Testing performed at: [place], [place] [facility], [address], [address] [place] [address], [address] [place] [address], Game Preserve Manager: Shamar Colunga MD [facility] Collection Date/Time: [facility] Results Received Date/Time: [facility] Reported Date/Time: FASTING: NO Performed By: #### 9 1486 #### [facility] Default [address] [place] [address] ERCPon 05-01-2021 ERCP [facility] Department of Radiology [address] [place] [id number] Patient Name: JOVON LOPEZ : 1995 [...] procedure. Electronically signed: Neris Guevara. Transcribed by: [email or web address], User Resident: Electronically Signed by: NERIS GUEVARA @ 05/03/2021 08:12 AM Normal [facility] Comment on above: Order Comment: Evalu ate Endoscopy Reporton Endoscopy Report MR#: [id number] [facility] Pt. Name: Jovon Lopez Surgery Date: 05/01/2021 Room #: M7A Date of : 1995 PROCEDURE NOTE ATTENDING: Gonzalez Powell M.D. COMMERCIAL ATTACHE: Te Bacon MD. (Advanced Endoscopy Gastroenterology Fellow). [...] Bacon MD Date Trans: 05/01/2021 06:34 P/mmo [id number] Normal [facility] POC SARS COV2 ANTIGEN NEGATI VEon 05-01-2021 POC SARS COV2 ANTIGEN NEG Negative Normal NEGATIVE [facility] Comment on above: Result Comment: Nega tive [...] signs and symptoms consistent with COVID-19. The [employer] COVID-19 Ag Card is a lateral flow [...] Accreditation. Performed By: #### 3 1977 #### [facility] [address] [facility] POC URINE PREGNANCYon 2020 Beta HCG ( test) Ql (U) Negative Normal NEGATIVE [facility] Comment on above: Result Comment: Perf ormed in PACU Performed By: #### 8 [id number] #### [facility] [address] [place] [address], [facility] Hemoglobinon 02-14-2021 Hemoglobin (Bld) [Mass/Vol] 11.4 g/dL Low 11.9-15.[address] [facility] Comment on above: Performed By: #### H GB #### [address] [place], [place] [id number] Rigging Foreman: Ilir Prasad MD HemoglobinOrdered By: Cherelle Mera on 02-14-2021 Hemoglobin.gastrointest inal spec 1 Ql (Stl) 11.4 g/dL Low 11.9 - 15.1 g/dL [facility] [employer] Phone: Interpretation and review of laboratory results Abnormal [facility] [employer] Phone: [facility] [employer] Phone: OPERATIVE REPORTon OPERATIVE REPORT [address] [address] OPERATIVE REPORT PATIENT NAME: JOVON LOPEZ : 1995 MED REC NO: [id number] ROOM: [facility] ACCOUNT NO: [id number] ADMIT DATE: 02/12/2021 PROVIDER: Fernando Hooks MD DATE OF PROCEDURE: 02/13/2021 PREOPERATIVE DIAGNOSES: at term, failed induction of labor, and intolerance to labor with late decelerations and brief episodes of bradycardia. SURGICAL PROCEDURE: Primary section, low transverse uterine segment. ANESTHESIA: Spinal. 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 ESTIMATED BLOOD LOSS: 800 mL. [...] then a running imbricating interlocking fashion. A karvga-au-hfohc suture was placed on the right lateral [...] good condition. FERNANDO HOOKS MD [id number] Doc#: [id number] CC: Nash Mera [facility] TYPE AND SCREENOrdered By: Rosie Hooks on 02-13-2021 ABO/Rh Positive [facility] Work Phone: Arm Band Number [id number] [facility] Work Phone: Expiration Date 02/16/2021,2359 [facility] Work Phone: [facility] Work Phone: Type + Screenon 02-13-2021 Type + Screen Sample Expiration 02/16/2021,2359 Arm Band Number [id number] ABO/Rh(D) A POSITIVE Antibody Screen NEGATIVE Normal [facility] Comment on above: Performed By: #### T YS #### [facility] [address] [place] [address] Rigging Foreman: Ilir Prasad MD CBC auto differentialOrdered By: Nash Mera on 02-12-2021 Absolute Eos # 0.11 [facility] Work Phone: Absolute Immature Granulocyte 0.05 [facility] Work Phone: Absolute Lymph # 1.67 [facility] Work Phone: Absolute [place] # 0.44 [facility] Work Phone: Basophils (Bld) [#/Vol] 10*3/uL M [facility] Work Phone: Basophils/100 WBC (Bld) 0 % 0 - 2 % M [facility] Work Phone: Differential Type NOT REPORTED [facility] Work Phone: Eosinophils/100 WBC (Bld) 1 % 1 - 4 % [facility] [employer] Phone: Hematocrit (Bld) [Volume fraction] 33.3 % Low 36.3 - 47.1 % [facility] [employer] Phone: Hemoglobin.gastrointest inal spec 1 Ql (Stl) 10.7 g/dL Low 11.9 - 15.1 g/dL [facility] [employer] Work Phone: Immature granulocytes/100 WBC (Bld) 1 % High 0 [employer] Phone: Interpretation and review of laboratory results Abnormal [employer] Phone: Lymphocytes/100 WBC (Bld) 20 % Low 24 - 43 % [employer] Phone: MCH (RBC) [Entitic mass] 28.5 pg 25.2 - 33.5 pg [employer] Phone: MCHC (RBC) [Mass/Vol] 32.1 g/dL 28.4 - 34.8 g/dL [employer] Phone: MCV (RBC) [Entitic vol] 88.6 fL 82.6 - 102.9 fL [employer] Phone: Monocytes/100 WBC (Bld) 5 % 3 - 12 % M [employer] Phone: NRBC Automated 0.0 0.0 per 100 WBC [employer] Phone: Platelet distribution width (Bld) [Ratio] 13.9 % 11.8 - 14.4 % [employer] Phone: Platelet Estimate NOT REPORTED [employer] Phone: Platelet mean volume (Bld) [Entitic vol] 11.5 fL 8.1 - 13.5 fL [employer] Phone: Platelets (Bld) [#/Vol] 229 10*3/uL [employer] Phone: RBC (Bld) [#/Vol] 3.76 10*6/uL Low 3.95 - 5.1 1 m/uL [employer] Phone: RBC (Bld) [#/Vol] NOT REPORTED [employer] Phone: Segmented neutrophils/100 WBC (Bld) 73 % High 36 - 65 % [employer] Phone: Segs Absolute 5.99 [facility] Work Phone: WBC (Bld) [#/Vol] 8.3 10*3/uL [facility] Work Phone: WBC (Bld) [#/Vol] NOT REPORTED [facility] Work Phone: [facility] Work Phone: CBC with Diffon 02-12-2021 Abs. Basophil <0.03 Normal 0.00-0.20 [facility] Comment on above: Performed By: #### C DP #### [address] [place] [address] Rigging Foreman: Ilir Prasad MD Abs.Imm.Granulocyte 0.05 k/uL Normal 0.00-0.[address] [facility] Comment on above: Performed By: #### C DP #### [address] [place], [facility] Rigging Foreman: Ilir Prasad MD Abs.Neutrophil (Seg) 5.99 k/uL Normal 1.50-8.10 [facility] Comment on above: Performed By: #### C DP #### [address] [place] [address] Rigging Foreman: Ilir Prasad MD Basophils/100 WBC (Bld) 0 % Normal 0-2 [facility] Comment on above: Performed By: #### C DP #### [address] [place] [address] Rigging Foreman: Ilir Prasad MD Eosinophils (Bld) [#/Vol] 0.11 10*3/uL Normal 0.00-0.[address] [facility] Comment on above: Performed By: #### C DP #### [address] [place], [place] [phone] Rigging Foreman: Ilir Prasad MD Eosinophils/100 WBC (Bld) 1 % Normal 1-[address] [facility] Comment on above: Performed By: #### C DP #### [facility] [address] [place], [place] [address] Rigging Foreman: Ilir Prasad MD Erythrocyte distribution width (RBC) [Ratio] 13.9 % Normal 11.8-14.[address] [facility] Comment on above: Performed By: #### C DP #### [facility] [address] [place], [place] [address] Rigging Foreman: Ilir Prasad MD Hematocrit (Bld) [Volume fraction] 33.3 % Low 36.3-47.[address] [facility] Comment on above: Performed By: #### C DP #### [address] [place], [facility]83 Rigging Foreman: Ilir Prasad MD Hemoglobin (Bld) [Mass/Vol] 10.7 g/dL Low 11.9-15.[address] [facility] Comment on above: Performed By: #### C DP #### [address] [place], [place] [address] Rigging Foreman: Ilir Prasad MD Immature granulocytes/100 WBC (Bld) 1 % High [address] [facility] Comment on above: Performed By: #### C DP #### [facility] [address] [place] [address] Dr[place], [place] [address] Rigging Foreman: Ilir Prasad MD Lymphocytes (Bld) [#/Vol] 1.67 10*3/uL Normal 1.10-3.[address] [facility] Comment on above: Performed By: #### C DP #### [facility] [address] [place] [address] [place] [address] Rigging Foreman: Ilir Prasad MD Lymphocytes/100 WBC (Bld) 20 % Low 24-[address] [facility] Comment on above: Performed By: #### C DP #### [facility] [address] [place] [address] Dr[place], [place] [phone] Rigging Foreman: Ilir Prasad MD MCH (RBC) [Entitic mass] 28.5 pg Normal 25.2-33.[address] [facility] Comment on above: Performed By: #### C DP #### [address] [place] [phone] Rigging Foreman: Ilir Prasad MD MCHC (RBC) [Mass/Vol] 32.1 g/dL Normal 28.4-34.8 [facility] Comment on above: Performed By: #### C DP #### [address] [place] [phone] Rigging Foreman: Ilir Prasad MD MCV (RBC) [Entitic vol] 88.6 fL Normal 82.6-102.9 [facility] Comment on above: Performed By: #### C DP #### [address] [place], [facility]83 Rigging Foreman: Ilir Prasad MD Monocytes (Bld) [#/Vol] 0.44 10*3/uL Normal 0.10-1.[address] [facility] Comment on above: Performed By: #### C DP #### [address] [place], [facility]83 Rigging Foreman: Ilir Prasad MD Monocytes/100 WBC (Bld) 5 % Normal 3-12 [facility] Comment on above: Performed By: #### C DP #### [facility] [address] [place] [address] Dr[place], [facility]83 Rigging Foreman: Ilir Prasad MD Neutrophil (Seg) 73 % High 36-65 [facility] Comment on above: Performed By: #### C DP #### [facility] [address] [place] [address] [place], [place] [phone] Rigging Foreman: Ilir Prasad MD NRBC Automated 0.0 per 100 WBC Normal 0.[address] [facility] Comment on above: Performed By: #### C DP #### [facility] [address] [place], [facility]83 Rigging Foreman: Ilir Prasad MD Platelet mean volume (Bld) [Entitic vol] 11.5 fL Normal 8.1-13.[address] [facility] Comment on above: Performed By: #### C DP #### [facility] [address] [place], [facility]83 Rigging Foreman: Ilir Prasad MD Platelets (Bld) [#/Vol] 229 10*3/uL Normal 138-[address] [facility] Comment on above: Performed By: #### C DP #### [address] [place], [facility]83 Rigging Foreman: Ilir Prasad MD RBC (Bld) [#/Vol] 3.76 10*6/uL Low 3.95-5.[address] [facility] Comment on above: Performed By: #### C DP #### [address] [place], [facility]83 Rigging Foreman: Ilir Prasad MD WBC (Bld) [#/Vol] 8.3 10*3/uL Normal 3.5-11.[address] [facility] Comment on above: Performed By: #### C DP #### [address] [place], [facility]83 Rigging Foreman: Ilir Prasad MD Auto Diff Performed NOT REPORTED Normal [facility] Comment on above: Performed By: #### C DP #### [address] [place], [facility]83 Rigging Foreman: Ilir Prasad MD Platelet Estimate NOT REPORTED Normal [facility] Comment on above: Performed By: #### C DP #### [address] [place], [facility]83 Rigging Foreman: Ilir Prasad MD RBC morphology finding Nom (Bld) NOT REPORTED Normal [facility] Comment on above: Performed By: #### C DP #### [facility] [address] [place] [address] Rigging Foreman: Ilir Prasad MD WBC Morphology NOT REPORTED Normal [facility] Comment on above: Performed By: #### C DP #### [facility] [address] [place] [address] Rigging Foreman: Ilir Prasad MD DRUG SCREEN MULTI URINEOrder ed By: Nash Mera on 02-12-2021 Amphetamine Screen, Ur Negative NEGATIVE [facility] Work Phone: Barbiturate Screen, Ur Negative NEGATIVE [facility] Work Phone: Benzodiazepine Screen, Urine Negative NEGATIVE [facility] Work Phone: Buprenorphine Urine Negative NEGATIVE [facility] Work Phone: Cannabinoid Scrn, Ur Negative NEGATIVE [facility] Work Phone: Cocaine Metabolite, Urine Negative NEGATIVE [facility] Work Phone: MDMA, Urine NOT REPORTED NEGATIVE [facility] Work Phone: Methadone Screen, Urine Negative NE[facility]IVE [facility] Work Phone: Methamphetamine, Urine Negative NEGATIVE [facility] Work Phone: Opiates, Urine Negative NEGATIVE [facility] Work Phone: Oxycodone Screen, Ur Negative NEGATIVE [facility] Work Phone: Phencyclidine, Urine Negative NEGATIVE [facility] Work Phone: Propoxyphene, Urine Negative NEGATIVE [facility] Work Phone: Test Information NOT REPORTED [facility] Work Phone: Tricyclic Antidepressants, Urine Negative NEGATIVE [facility] Work Phone: Comment on above: Drug screen results are to be used for medical purposes only. All positive results are unconfirmed. Testing for employment or legal uses should be sent to a reference laboratory for confirmation. [facility] Work Phone: Drug Scr, Abuse, Uron 2020 Amphetamine(s),Ur Negative Normal NEG [facility] Comment on above: Performed By: #### D AU #### [facility] [address] [place] [address] Dr[place], [place] [phone] Rigging Foreman: Ilir Prasad MD Barbiturate(s),Ur Negative Normal NEG [facility] Comment on above: Performed By: #### D AU #### [address] [place], [place] [phone] Rigging Foreman: Ilir Prasad MD Benzodiazepine(s) Negative Normal NEG [facility] Comment on above: Performed By: #### D AU #### [facility] [address] [place] [address] [place] [address] Rigging Foreman: Ilir Prasad MD Buprenorphrine, Ur Negative Normal [facility] Comment on above: Performed By: #### D AU #### [facility] [address] [place] [address] [place] [address] Rigging Foreman: Ilir Prasad MD Cannabinoid(s),Ur Negative Normal NEG [facility] Comment on above: Performed By: #### D AU #### [facility] [address] [place] [address] [place] [address] Rigging Foreman: Ilir Prasad MD Cocaine Metabolite Negative Normal NEG [facility] Comment on above: Performed By: #### D AU #### [facility] [address] [place] [address] Dr. [place], [place] [phone] Rigging Foreman: Ilir Prasad MD Methadone Ql (U) Negative Normal NEG [facility] Comment on above: Performed By: #### D AU #### [facility] [address] [place], [place] [phone] Rigging Foreman: Ilir Prasad MD Methamphetamine, Ur Negative Normal NEG [facility] Comment on above: Performed By: #### D AU #### [facility] [address] [place], [place] [phone] Rigging Foreman: Ilir Prasad MD Opiate(s), Ur Negative Normal NEG [facility] Comment on above: Performed By: #### D AU #### [facility] [address] [place] [address] Rigging Foreman: Ilir Prasad MD Oxycodone, Urine Negative Normal NEG [facility] Comment on above: Performed By: #### D AU #### [facility] [address] [place], [place] [phone] Rigging Foreman: Ilir Prasad MD Phencyclidine, Ur Negative Normal NEG [facility] Comment on above: Performed By: #### D AU #### [facility] [address] [place], [place] [phone] Rigging Foreman: Ilir Prasad MD Propoxyphene,Urine Negative Normal NEG [facility] Comment on above: Performed By: #### D AU #### [facility] [address] [place], [place] [phone] Rigging Foreman: Ilir Prasad MD Tricyclic antidepressants Screen Ql (U) Negative Normal [facility] Comment on above: Result Comment: Drug screen results are to be used for medical purposes only. All positive results are unconfirmed. Testing for employment or legal uses should be sent to a reference laboratory for confirmation. Performed By: #### D AU #### [facility] [address] [place], [place] [phone] Rigging Foreman: Ilir Prasad MD Interpretive Info NOT REPORTED [facility] Comment on above: Performed By: #### D AU #### [facility] [address] [place] [address] Rigging Foreman: Ilir Prasad MD MDMA, Urine NOT REPORTED Normal NEG [facility] Comment on above: Performed By: #### D AU #### [facility] [address] [place] [address] Rigging Foreman: Ilir Prasad MD GBS, External ResultOrdered By: Historical Provider on 01-29-2021 GBS, External Result Negative [facility] [employer] Phone: [facility]: ABO, External ResultOrdered By: Historical Provider on 08-15-2020 ABO, External Result A [employer] Phone: HIV, External ResultOrdered By: Historical Provider on 08-15-2020 HIV, External Result Non-Reactive [employer] Phone: Hepatitis B, External Result Ordered By: Historical Provider on 08-15-2020 Hep B, External Result Negative [employer] Phone: No Panel InformationOrdered By: Historical Provider on 08-15-2020 [employer] Phone: PROFILE IOrdered By : Historical Provider on 08-15-2020 ABO/Rh Positive [employer] Phone: Rh Factor, External ResultOr dered By: Historical Provider on 08-15-2020 Rh Factor, External Result Positive [employer] Phone: Hepatitis C Antibody, Chairman President And Chief Executive Officer al ResultOrdered By: Historical Provider on 07-26-2020 Hepatitis C Antibody, External Result Negative [employer] Phone: No Panel InformationOrdered By: Historical Provider on 07-26-2020 [employer] Phone: RPR, External LabOrdered By: Historical Provider on 07-26-2020 RPR, External Result Non-Reactive [employer] Phone: Vag Pathogens DNAon 08-22-19 19 [place] vag DNA Probe Positive Critically abnormal Negative for Gardnerella vaginalis by [facility] Comment on above: Result Comment: This is suggestive, but not diagnostic of bacterial vaginosis, results should be interpreted in conjunction with other data such as pH, amine odor, clue cells and vaginal discharge characteristics. Performed By: #### V AGDNA #### [facility] [employer] [address] [place] [address] Protein mass conc Negative Normal Negative f or Lucía species by [facility] Comment on above: Performed By: #### V AGDNA #### [facility] [employer] [address] [place] [id number] Trich vag DNA Probe Negative Normal Negative for Trichomonas vaginalis by [facility] Comment on above: Performed By: #### V AGDNA #### [facility] [employer] [address] [place] [phone] CNOVon 08-20-2018 CNOV Office Visit (AVONGY ) JOVON LOPEZ ([id number]) 1995 F CHT Date Time Provider Department 08/20/18 2:00 PM [facility] ([facility]) GISELLA During your visit today, we recorded the following information about you: Blood pressure Weight Height Last Period 110/70 60.3 kg 1.575 m 07/20/18 Kaycee Horvath MA 08/20/2018 2:17 PM Signed [employer] offered: Patient declines. Brigitte Main APRN.CNP 08/20/2018 [...] external genitalia normal, normal Bartholin's glands, urethra, [address]'s glands, no vulvar lesions, no cervical lesions, good vaginal support, normal appearing perineal body and perianal region, moderate amount yellow discharge noted BIMANUAL: uterus normal size, shape and consistency, no adnexal masses and non-tender RECTOVAGINAL: deferred. 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 Exam [50] Cmt: Vaginal pain and discharge [...] test, unconfirmed [Z32.00] Order(s):PAP FLUID CERVICAL SCREENING [[id number]] Order #: [id number] VAGINAL PATHOGENS DNA PROBES [SQVAGDNA] Order #: [id number] GC/CHLAMYDIA DNA DET [SQGCCAMP] Order #: [id number] TSH BLD [SQTSH] Order #: [id number] PROLACTIN BLD [SQPROL] Order #: [id number] TESTOSTERONE, FREE AND TOTAL [SQFTESTO] Order #: [id number] HGB A1C [AHBDG1G] Order #: [id number] DHEA-S BLD [SQDHEAS] Order #: [id number] FSH BLD [SQFSH] Order #: [id number] INSERT INTRAUTERINE DEVICE [[id number]] Order #: [id number] HCG QUAL UR B/O [[id number]] Order #: [id number] Prescriptions as of 08/20/2018 Sig: HYDROCODONE 5 MG-ACETAMINOPHE* Take 1 tablet by mouth every * Problem List As Of Date: 08/20/2018 (None) Visit Notes: >> Kaycee Horvath MA ThuAug 20, 2018 2:11 PM Status: Signed Outside Energy Sales Representatives offered: Patient declines. >> Kaycee Horvath MA ThuAug 20, 2018 4:38 PM Status: Signed Negative upt. Encounter Status:Closed by BRIGITTE MAIN CNP on 08/20/18 [facility] CYTOLOGYon 08-20-2018 CYTOLOGY Specimen originated from [facility] Specimen #: [id number] Submitting Physician: BRIGITTE YOUNG CNP SPECIMEN SUBMITTED [...] from every slide are reviewed by a carrot buncher. RAYNE Covington(ASCP) (Electronic Signature) ____ CLINICAL DATA ROUTINE EXAM, HPV Testing: Yes, Reflex HPV for ASCUS Date of Last Menstrual Period: 07/20/2018 STAINS A: CERVICAL, SCREENING, FLUID THIN PREP MOVING WORKER Brigitte Echavarria M.D., Aerosol Line Operator Date of Report: 08/25/2018 Date of Procedure: 08/20/2018 Date of Receipt: 08/23/2018 Submitted by: BRIGITTE YOUNG CNP Location: [facility] Diagnostic interpretation performed at [facility], [address] [place], [place] [id number]. CLIA Number: [id number] The Pap Smear is a screening test for cervical cancer. False negative results occur with all screening tests, emphasizing the need for rescreening at recommended intervals, and clinical correlation. [facility] GC/Chlamydia Amplifon 2018 Chlamydia Amplif Positive Critically abnormal [facility] Comment on above: Result Comment: In l ow prevalence populations, the likelihood of a false positive may be higher than a true positive. Retesting by another method may be appropriate for patients who lack risk factors or clinical signs and symptoms consistent with infection. Performed By: #### G CCT #### [place] [address] GC Amplification Negative Normal [facility] Comment on above: Performed By: #### G CCT #### [place] [address] GC/Chlam Amp Source Cervix Normal [facility] Comment on above: Performed By: #### G CCT #### [place] [address] PROGRESSon 08-20-2018 Protein mass conc HNO ID: [id number] Author: Brigitte SolimanFlour Distributor) Tucker'Young Service: ? Author Type: Nurse Practitioner [...] external genitalia normal, normal Bartholin's glands, urethra, [address]'s glands, no vulvar lesions, no cervical lesions, good vaginal support, normal appearing perineal body and perianal region, moderate amount yellow discharge noted BIMANUAL: uterus normal size, shape and consistency, no adnexal masses and non-tender RECTOVAGINAL: deferred. NEURO: alert and oriented x3 and alert and oriented x3,exam grossly non-focal EXTREMITIES: normal ASSESSMENT: Normal MOVING WORKER exam Breast cancer screening Menorrhagia with irreg [...] for insertion pending ins coverage Brigitte Main APRN.LIQUID FERTILIZER SERVICER [facility] Vital Signs Date Time Vital Sign Value Performing Clinician Facility 03-01-2024 15:46-0400 Body mass index (BMI) [Ratio] 25.61 kg/m2 Nash Mera CNM Work Phone: [facility] 03-01-2024 15:46-0400 Body weight 63.5 kg Nash YOU Work Phone: [facility] 03-01-2024 15:46-0400 Diastolic blood pressure 70 mm[Hg] Nash Mera CN Work Phone: [facility] 03-01-2024 15:46-0400 Systolic blood pressure 110 mm[Hg] Nash Mera CN Work Phone: [facility] 06-30-2023 10:20-0500 Body height 157.48 cm Luis Leung Other [facility] Other 06-30-2023 10:20-0500 Body mass index (BMI) [Ratio] 22.49 kg/m2 Luis Xochitl Other [facility] Other 06-30-2023 10:20-0500 Body weight 55.79 kg Luis Xochitl Other [facility] Other 06-30-2023 10:20-0500 Diastolic blood pressure 65 mm[Hg] Luis Xochitl Other [facility] Other 06-30-2023 10:20-0500 Systolic blood pressure 115 mm[Hg] Luis Leung Other [facility] Other 05-17-2022 15:15-0500 Diastolic blood pressure 59 mm[Hg] PHYSICIAN NO [facility] 05-17-2022 15:15-0500 Heart rate 67 /min PHYSICIAN NO [facility] 05-17-2022 15:15-0500 Respiratory rate 15 /min PHYSICIAN NO [facility] 05-17-2022 15:15-0500 SaO2% (BldA) [Mass fraction] 99 % PHYSICIAN NO [facility] 05-17-2022 15:15-0500 Systolic blood pressure 111 mm[Hg] PHYSICIAN NO [facility] 05-17-2022 11:45-0500 Body height 160.02 cm PHYSICIAN NO [facility] 05-17-2022 11:45-0500 Body temperature 98 [degF] PHYSICIAN NO [facility] 05-17-2022 11:45-0500 Body weight 58 kg PHYSICIAN NO [facility] 02-15-2021 07:23-0400 Body temperature 98.1 [degF] Nash Mera STOREKEEPER ENGINEERING - CNM Work Phone: [employer] Work Phone: 02-15-2021 07:23-0400 Diastolic blood pressure 59 mm[Hg] Nash Mera STOREKEEPER ENGINEERING - CNM Work Phone: [employer] Work Phone: 02-15-2021 07:23-0400 Heart rate 71 /min Nash Mera STOREKEEPER ENGINEERING - CNM Work Phone: [employer] Work Phone: 02-15-2021 07:23-0400 Respiratory rate 16 /min Nash Mera STOREKEEPER ENGINEERING - CNM Work Phone: [employer] Work Phone: 02-15-2021 07:23-0400 Systolic blood pressure 98 mm[Hg] Nash Mera STOREKEEPER ENGINEERING - CNM Work Phone: [employer] Work Phone: 02-13-2021 20:25-0400 SaO2% (BldA) [Mass fraction] 97 % Nash Mera STOREKEEPER ENGINEERING - CNM Work Phone: [employer] Work Phone: 02-12-2021 15:50-0400 Body height 157.5 cm Nash Mera STOREKEEPER ENGINEERING - CNM Work Phone: [employer] Work Phone: 02-12-2021 15:50-0400 Body mass index (BMI) [Ratio] 33.29 kg/m2 Nash Mera STOREKEEPER ENGINEERING - CNM Work Phone: [employer] Work Phone: 02-12-2021 15:50-0400 Body weight 82.56 kg Nash Mera STOREKEEPER ENGINEERING - CNM Work Phone: [employer] Work Phone: Encounters Encounter Date Encounter Type [...] 06-30-2023 End: 06-30-2023 ambulatory Luis Leung Other [facility] Other Start: 06-30-2023 Office outpatient visit 15 minutes Luis Leung [facility] Start: 06-30-2023 Telephone encounter Luis Crews [facility] Start: 06-04-2023 End: 06-04-2023 ambulatory NASH L FLORO Not Available Start: 05-14-2023 End: 05-14-2023 ambulatory NASH L FLORO Not Available Start: 04-21-2023 End: 04-21-2023 Emergency department patient visit PHYSICIAN NO FAMILY Facility:[facility] Start: 10-19-2022 End: 10-19-[address] NONE LISTED REQUEST Facility: Start: 05-26-2022 ambulatory Alize Jefferson RN NURS E ADVERTISING SPECIALIST Comment on above: Muscle Aches Start: 05-24-2022 End: 05-25-2022 Emergency department patient visit IKE HASTINGS Facility:[facility] Start: 05-23-2022 End: 05-23-2022 ambulatory GONZALEZ POWELL [facility] Start: 05-17-2022 End: 05-17-2022 Emergency department patient visit PHYSICIAN NO FAMILY [facility] Start: 05-01-2022 End: 05-01-[address] NONE LISTED REQUEST Facility: Start: 05-01-2021 End: 05-02-2021 ambulatory REFERRED SELF Facility:[facility] Start: 02-12-2021 End: 02-15-2021 Evaluation and management of inpatient NASH MERA [facility] Start: 02-12-2021 End: 02-15-2021 Evaluation and management of inpatient Nash Mera [facility] - CN Work Phone: [facility] Labor and Delivery Comment on above: S/P primary low arredondo sverse (Primary Dx) Start: 08-20-2018 End: 08-23-2018 Patient encounter procedure BRIGITTE BA [facility] Procedures Date Procedure Procedure Detail Performing Clinician Start: 03-01-2024 SURESWAB(R) ADVANCED VAGINITIS PLUS, TMA Nash Mera CN Work Phone: Start: 02-14-2021 Blood count hemoglobin Nash Mera STOREKEEPER ENGINEERING - CN Work Phone: Start: 02-13-2021 Antibody screen Nash Mera STOREKEEPER ENGINEERING - CN Work Phone: Start: 02-13-2021 Blood typing serolog ic abo Fernando Hooks MD Work Phone: Start: 02-12-2021 Blood count complete auto&auto difrntl wbc Nash Mera STOREKEE[employer] ENGINEER[employer] - CN Work Phone: Start: 02-12-[address] class [address] a Nash Mera STOREKEEPER ENGINEERING - CN Work Phone: Start: 01-29-2021 GBS, [...] S/P primar y low transverse Nash Mera STOREKEE[employer] ENGINEERING - CN Work Phone: H/O: section S/P primar y low transverse Nash Mera STOREKEEPER ENGINEERING - CNM Work Phone: Plan of Treatment Date Care Activity Detail Author Start: 03-29-2024 End: 03-29-2024 ambulatory 03/29/2024 3:30 PM EDT Visit [facility] [address] [place] [id number] Nash Mera, [facility] [address] [place] [address] [facility] Start: 03-01-2024 End: 03-01-2024 ambulatory 03/01/2024 3:45 PM EDT Visit [facility] [address] [place] [address] Nash Mera, [facility] [address] [place] [address] [facility] Start: 02-07-2024 Influenza vaccination Influenza Vacc ine (#1) [facility] Start: 02-06-2022 Influenza vaccination INFLUENZA (#1) [facility] Start: 08-20-2021 PAP TESTING PAP TESTING [facility] Start: 06-08-2021 [facility] Start: 02-06-2021 Influenza vaccination Flu vaccine (# 1) [facility] Phone: Start: 2018 Screening for malign ant neoplasm of cervix Pap smear [facility] Phone: Start: 2016 DTaP/Tdap/Td vaccine (1 - Tdap) DTaP/Tdap/Td vaccine (1 - Tdap) [facility] Phone: Start: 2016 Urine microalbumin profile DTAP,TDAP,TD (1 - Tdap) [facility] Start: 2015 HEPATITIS C SCREENING HEPATITIS C SC REENING [facility] Start: 2015 HIV SCREENING HIV SCREENING [facility] Start: 2013 Screening for Chlamy graham trachomatis Chlamydia screen [facility] [employer] Phone: Start: 2012 HIV screening HIV screen [facility] Work Phone: Start: 2011 PEDS TO ADULT TRANSITION ANNUAL ASSESSMENT PEDS TO ADULT TRANSITION ANNUAL ASSESSMENT [facility] Start: 2009 COVID-19 Vaccine (1) COVID-19 Vaccin e (1) [facility] [employer] Phone: Start: 2009 PEDS TO ADULT TRANSITION INITIAL DISCUSSION PEDS TO ADULT TRANSITION INITIAL DISCUSSION [facility] Start: 2008 HPV vaccine (1 - 2-d ose series) HPV vaccine (1 - 2-dose series) [facility] Start: 1998 Varicella vaccine (1 of 2 - 2-dose childhood series) Varicella vaccine (1 of 2 - 2-dose childhood series) [facility] [employer] Phone: Start: 1997 COVID-19 VACCINE (#1) COVID-19 VACCI NE (#1) [facility] Start: 1997 HEPATITIS B (1 of 3 - 3-dose series) HEPATITIS B (1 of 3 - 3-dose series) [facility] Start: 1997 Hepatitis C screening Hepatitis C sc reen [facility] [employer] Phone: Bacteria identified in Urine by Culture [facility] Oxygen therapy [[facility] Data Set] Initiate Oxygen Therapy Protocol Respiratory Care Routine Daily until discontinued starting 02/13/2021 [facility] [employer] Phone: Comment on above: Daily until disconti nued starting 02/13/2021 Patient Education Abdominal Pain , Adult ED [facility] Work Phone: Patient referral [facility] Work Phone: Spirometry panel Incentive blanka metry Respiratory Care Routine Every 2hr while awake until discontinued starting 02/13/2021 [facility] [employer] Phone: Comment on above: Every 2hr while awak e until discontinued starting 02/13/2021 Immunizations Immunization Date Immunization Notes Care Provider Fa kayaty 02-13-2021 diphtheria, tetanus toxoids and acellular pertussis vaccine, unspecified formulation Nash Mera [facility] Work Phone: [employer] Work Phone: 02-13-2021 measles, mumps and rubella virus vaccine [facility] Work [facility]: [employer] Work Phone: Payers Date Payer Category Payer Self-pay 2021 Medicaid [id number] 1997 Unknown [id number] 2.16.8 [id number] 1997 Unknown [id number] 2.16.8 40.1.955317.3.579.2.647 1997 Unknown [id number] 2.16.84 0.1.150332.3.579.2.593 1997 Unknown [id number] 2.16.84 0.1.862970.3.579.2.593 1997 Unknown [id number] 2.16.84 0.1.919040.3.579.2.1259 1997 Unknown [id number] 2.16.84 0.1.053722.3.579.2.1259 1997 Unknown [id number] 2.16.84 0.1.152911.3.579.2.1259 1997 Unknown [id number] 2.16.84 0.1.473566.3.579.2.1259 1997 Unknown [id number] 2.16.84 0.1.578296.3.579.2.1259 1997 Unknown [id number] 2.16.84 0.1.861182.3.579.2.1259 1997 Unknown [id number] 2.16.84 0.1.723460.3.579.2.9 1997 Unknown [id number] 2.16.84 0.1.701903.3.579.2.9 1997 Unknown [id number] 2.16.84 0.1.197936.3.579.2.9 1997 Unknown [id number] 2.16.84 0.1.109386.3.579.2.1258 1997 Unknown [id number] 2.16.84 0.1.339827.3.579.2.1258 1997 Unknown [id number] 2.16.84 0.1.289249.3.579.2.1258 1997 Unknown [id number] 2.16.84 0.1.922997.3.579.2.9 1997 Unknown [id number] 2.16.840 .1.035146.3.579.2.1258 1997 Unknown [id number] 2.16.840 .1.286147.3.579.2.9 1997 Unknown [id number] 2.16.840 .1.516390.3.579.2.9 1959 Private Health Insurance [id number] 1.2.840.[id number] 1959 Unknown [id number] Unknown [id number] 2.16.8 40.1.635178.3.579.2.531 Social History Date Type Detail Facility Start: 08-20-2018 End: 02-13-2021 Tobacco smoking status DCIS Never smoker [facility] Start: 02-13-2021 End: 12-30-2023 Tobacco use and exposure Never used [employer] Start: 02-13-2021 End: 03-01-2024 Alcohol intake Ex-drinker (finding) [facility] Phone: Start: 1997 Sex Assigned At Not on file [employer] Phone: Exposure to SARS-CoV-2 (event) Not sure [facility] Start: 05-17-2022 Tobacco smoking status NHIS Smoker (finding) [facility] Start: 1997 Sex Assigned At Female F [facility] Start: 05-24-2022 Alcohol intake Current drinke r of alcohol (finding) [facility] Start: 08-20-2018 Tobacco Comment Smokes radhames--s mokeless cigs. [facility] Start: 08-20-2018 Alcohol Comment a couple times per month [facility] Start: 03-01-2024 End: 03-02-2024 Sex Assigned At [facility] [facility] [employer] Other Start: 12-30-2023 Tobacco smoking status DCIS Ex-smoker [facility] History of tobacco use Cigarette Smoker [facility] Start: 03-01-2024 End: 03-02-2024 History of Social function [facility] The thought of harming myself has occurred to me Never [facility] Start: 05-03-2023 Alcohol Comment caffeine: 1-2 cups per day [facility] Start: 07-02-2023 Gender identity Identifies as female gender (finding) [facility] Healthcare Goals Date Patient Goal Desired [...] for pateint [facility] 03-02-2024 Miscellaneous Notes Formattin g of this note might be different from the original. Vm left Pt left vm stating that she wanted to make sure her rx was sent to correct pharmacy Called and lmom for pateint that rx was sent to [facility] yesterday. documented in this encounter [facility] 03-01-2024 History of Presen t illness Narrative [...] obtained. normal exam documented in this encounter [facility] 02-26-2024 Telephone encounter Note Form atting of this note might be different from the original. Pt scheduled [facility] 02-26-2024 Miscellaneous Notes Formattin g of this note might be different from the original. Pt scheduled Dolly called - said she left a couple Vm's . I explained Lani was on vacation and jean pierre has been working solo ..she understood but needs to make appt - having a discharge she isnt sure is normal . Jovon- [phone] documented in this encounter [facility] 02-26-2024 Telephone encounter Note Form atting of this note might be different from the original. Dolly called - said she left a couple Vm's . I explained Lani was on vacation and jean pierre has been working solo ..she understood but needs to make appt - having a discharge she isnt sure is normal . Jovon- [phone] [facility] 02-05-2024 Telephone encounter Note Form atting of this note might be different from the original. Dolly called - she spoke w lady - having terrible sharp pain when breast feeding - was told baby may have thrush and giving it to mom . No visible symptoms - She said her nipple is white when done nursing - [facility] 02-05-2024 Miscellaneous Notes Formattin g of this note might be different from the original. Dolly called - she spoke w lady - having terrible sharp pain when breast feeding - was told baby may have thrush and giving it to mom . No visible symptoms - She said her nipple is white when done nursing - documented in this encounter [facility] 06-30-2023 Evaluation note Encounter Date Diagnosis Assessment Notes Jun, Diarrhea (ICD-10 - R19.7) Jun, Nausea (ICD-10 - R11.0) Jun, Weight loss (ICD-10 - R63.4) [facility] Other 12-30-2022 NotePlease notify patient that all of her labs are normal. We will proceed with EGD for further evaluation as planned. She needs to follow up with her PCP or whoever ordered the UA. This was not ordered by us and is abnormal. Please advise patient to follow up with ordering provider.[facility]12-19-2022 Miscellaneous Notes* Telephone Encounter - Alize Jefferson RN - 05/26/2022 10:53 PM EST Reason for Call: pt does not have a current PCP and is having worsening symptoms since seen in ED on 05/24/22 Outcome: Advised to return to ED now, agreeable. [facility] Note Attestation signed by Gonzalez Powell MD at 05/23/2022 7:30 PM I personally saw and examined the patient on the same date of service as resident/fellow . I discussed the findings and therapeutic plan with the resident/fellow . I agree with the documentation, except for any edits/updates below. [facility] Gastroenterology History & Physical CHIEF COMPLAINT Chief Complaint Patient presents with New Patient Fatigue Had gallbladder removed in 03/2021, Dr. Powell found and fixed leak 04/2021, pt is having major problems with eating and drinking. Was referred back in 2020 HISTORY OF PRESENT ILLNESS: Jovon Lopez is a 27 y.o. female with history laparoscopic cholecystectomy on 03/25/2021 at [facility] (in setting of cholecystitis) complicated by biliary leak status post biliary stent on 03/28/2021 and transferred back to [place]. While there, she had worsening abdominal pain [...] normal bowel sounds, soft, (more content not included)...[facility]11-01-2021 History general Narrative - Reported* Type Description Date Surgical History C section Surgical History cholecystectomy 04/2021 [facility] Other 09-10-2021 History of Present illness Narrative* [...] I did review with her that the ada accommodation consultant can review pump usage with her [...] - CNM - 02/13/2021 7:35 PM EDT Moving Worker Note: retail loan originator assistant/surgical coder primary section with Dr Hooks Closed SQ layer and also closed skin incision. All edges approximated, no bleeding or drainage noted. surgical scrub technician places sterile dressing over incision. Patient [...] 02/13/2021 5:15 PM EDT Surgery notified that repair supervisor and recovery nurse needed for impending . documented in this [facility] [employer] Phone: 1(527) 202-866309-10-2021 Hospital Discharge instructions* Instructions* Lila Mcintosh RN - 02/15/2021 Follow-up with your OB doctor as specified. [facility] Department phone: Dr. Neva Smith [facility] Dr. Brittani Espinoza [facility] [address] [facility] [address] [facility] [address] [place] or [place] Lani Mera, MSN, STOREKEEPER ENGINEERING, CNM [place] [address] [facility] [address] DIET Eat a well balanced diet focusing on foods high in fiber and protein. Drink plenty of fluids especially water. To avoid constipation you may take a mild stool softener as recommended by your doctor or consumer marketing analyst. ACTIVITY Gradually increase your activity. Resume exercise regimen only after advice by your doctor or consumer marketing analyst. Avoid lifting anything heavier than a gallon of milk for SIX weeks. Avoid driving until your doctor or consumer marketing analyst has given their approval. Rise slowly from [...] medications as recommended by your doctor or consumer marketing analyst for pain If you develop a warm, [...] vitamins as directed by your doctor or consumer marketing analyst. Refer to the booklet in the folder/binder for more information. If you feel you need more assistance or have questions, please call Loreta Reyes IBCLC, ada accommodation consultant, at or the OB department to [...] area in your calf. [facility] Phone: 1(937) 444-312609-10-2021 Hospital course Narrative* Kyra Smith APRN - [...] for: HEPBSAG HIV: No results found for: [id number] Results for orders placed or performed during [...] # 1.67 1.10 - 3.70 k/uL Absolute [place] # 0.44 0.10 - 1.20 k/uL Absolute [...] Range Expiration Date 02/16/2021,2359 Arm Band Number [id number] ABO/Rh A POSITIVE Antibody Screen NEGATIVE complications: none Discharge Medication: Jovon Lopez Home Medication Instructions [place]:[id number] Printed on:02/15/21 1002 Medication Information docusate sodium [...] and post depression check [facility] Phone: [email or web address] note* Diagnosis S/P primary low transverse - Primary delivery, without mention of indication, unspecified as to episode of care Encounter for induction of labor Term intolerance to labor, delivered, current hospitalization Abnormality in heart rate/rhythm, delivered, with or without mention of antepartum condition documented in this encounter [facility] Phone: [email or web address] noteNo assessment information available [facility] Work Phone: Evaluation noteNo InformationNobates [facility] Crew Other Evaluation note* Diagnosis Post depression (CMS/HCC)- [...] any spicy foods, fatty foods and avoid alcoholGuernsey [facility] Hospital Ctr Work Phone: Summary Purpose [...] section and content) DATE CREATED AUTHOR 08/25/2018 [facility] DATE CREATED AUTHOR AUTHOR'S ORGANIZ ATION 02/16/2021 [facility] DATE CREATED AUTHOR AUTHOR'S ORGANIZ ATION 05/21/2021 [facility] DATE CREATED AUTHOR AUTHOR'S ORGANIZ ATION 05/27/2021 [facility] Me dical Specialist DATE CREATED AUTHOR AUTHOR'S ORGANIZ ATION 05/30/2022 [facility] DATE CREATED AUTHOR AUTHOR'S ORGANIZ ATION 07/17/2022 [facility] DATE CREATED AUTHOR AUTHOR'S ORGANIZ ATION 10/22/2022 [facility] DATE CREATED AUTHOR AUTHOR'S ORGANIZ ATION 07/17/2023 [facility] DATE CREATED AUTHOR AUTHOR'S ORGANIZ ATION 03/06/2024 [facility] dical Specialists EPIC Reason for Visit (unrecogniz ed section and content) Reason Comments Scheduled Induction Cytotec Induction Status Reason Specialty Diagnoses / Procedures Referre d By Contact Referred To Contact Diagnoses Encounter for induction of labor Term Nash Mera APRN - BRADY [address] [place] [address] [facility] Reason Comments Muscle Aches Reason Comments Care [...] 50 mL IVPB (COMPLETED) 900 mg, IntraVENous, ADVERTISING SPECIALIST TO O.R., 1 dose, On Thu02/13/21 at [...] Benavides RN) 0739 (Given - Provider: Lila cMintosh, HALLE) famotidine (PEPCID) injection 20 mg (COMPLETED) [...] Deja Villalobos, HALLE)0400 (Due)1257 (Given - Provider: Llia Mcintosh RN)2000 (Due) ketorolac (TORADOL) injection 30 [...] (Due) 0900 (Due)2100 (Due) 09 (Due)2100 (Due) Ekvfaoa-Ppbydb-Eitoj Pertussis (BOOSTRIX) injection 0.5 mL 0.5 mL, [...] Bag - Provider: Luther Silvestre APRN - EARLY CHILDHOOD WORKER)1912 (Anesthesia Volume Adjustment - Provider: SAEID Sheppard [...] every 2-3 minutes with cervical changes or [place] units (MVU) greater than 200 in a [...] Thu02/13/21 at 1746, For 1 dose, Tamiko Rearodn: cabinet override 1756 (Given - Provider: Claudine [...] PHYSICIAN NO FAMILY Primary Care Provider Active Geophysical Drafter Relationship Specialty Start Date End Date Unallocated, Viet Wheeler [facility] [place] [address] PCP - General Family Medicine 12/17/23 Geophysical Drafter Relationship Specialty Start Date End Date Unallocated, MD Diogo Blanchard [place] [address] PCP - General Family Medicine 12/17/23 Geophysical Drafter Relationship Specialty Start Date End Date Unallocated, [place] Provider, [place] [address] PCP - General Family Medicine 12/17/23 Geophysical Drafter Relationship Specialty Start Date End Date Unallocated, [place] Provider, Diogo [place], [place] [id number] PCP - General Family Medicine 12/17/23 Goals [...] or prosecute any alcohol or drug abuse patient.[facility] FOR RECORDS PERTAINING TO PATIENTS WHO [...] BE BASED ON THE PRIMARY CLINICAL RECORDS. [facility]. provides no warranty or guarantee of the accuracy or completeness of information in this document.
--- NOTE | 2024-07-26 14:13 | P.HP_ITS ---
HPI H&P: HPI History of Present Illness Chief complaint: NVD, INTRACTABLE NAUSEA, VOMITTING, DIARRHEA, HYPO Narrative: 29-year-old female had laparoscopic cholecystectomy about 2 years ago that was complicated by biliary leak resulting in sepsis. Since her cholecystectomy, she has had intermittent nausea, vomiting along with watery diarrhea more or less daily. She has had multiple admissions for intractable nausea, vomiting and inability to tolerate p.o. diet. Symptoms typically resolve in a couple of days and then recur after a few days. She presented to ER earlier this morning for intractable nausea, vomiting and abdominal pain along with diarrhea. Patient reports that she has not been able to tolerate any oral intake for past 1 day. Patient reports daily marijuana use has noted that after marijuana use, her nausea worsens. Further questioning also revealed that her symptoms usually improve when she takes a hot shower. At the time of evaluation, patient reports that her symptoms had improved a little but she was still very nauseous and was afraid of eating. CT abdomen pelvis reviewed and no acute intra-abdominal pathology noted. Opioid HPI Opioid Management Most Recent Pain and Opioid Data: Last Pain Scale 10 07/26/24 08:28 07/26/24 Last MAR Pain Assessment 07/26/24 08:28 Last ORT Total Score 8 07/26/24 13:51 07/26/24 Last ORT Risk Category High Risk 07/26/24 13:51 07/26/24 Ur Phencyclidine Scrn Negative (NEGATIVE) 12/23/23 07:45 12/06 12/29 Review of Systems ROS Status of ROS 10 or more systems reviewed and unremark able except as noted in history and below PFSH PFSH Social History Smoking status: Heavy tobacco smoker Highest level of school completed/degree received: high school graduate Little interest or pleasure in doing things: not at all Feeling down, depressed, or hopeless: not at all Meds Home Medications and Allergies Home Medications ?Medication ?Instructions ?Recorded ?Confirmed ?Type No Known Home Medications 07/26/24 07/26/24 History Allergies Allergy/AdvReac Type Severity Reaction Status Date / Time morphine Allergy Severe Hives Verified 07/26/24 04:48 Penicillins Allergy Severe Unknown Verified 07/26/24 04:48 Exam Constitutional Vital Signs, click to edit/add: Last Vital Signs Temp 98.3 F 07/26/24 04:48 Pulse 74 07/26/24 06:13 Resp 19 07/26/24 06:13 BP 102/63 07/26/24 08:33 Pulse Ox 97 07/26/24 09:23 O2 Del Method Room Air 07/26/24 04:48 Documenting provider has reviewed patient's vital signs: yes Common normals: no apparent distress and oriented x3 General appearance: cooperative HENMT Common normals: normocephalic and head/scalp atraumatic Head and scalp: normocephalic and atraumatic Eye Common normals: conjunctivae normal and no scleral icterus Conjunctiva: conjunctiva(e) normal Respiratory Common normals: normal respiratory effort and clear to auscultation bilaterally Effort & inspection: able to speak in complete sentences Auscultation: clear to auscultation bilaterally Cardio Common normals: regular rate, S1 normal heart sound and S2 normal heart sound Rate: regular rate Heart sounds: S1 normal and S2 normal GI Common normals: Normal to inspection, nondistended, normoactive bowel sounds present, soft to palpation and no hepatosplenomegaly Palpation: soft, tender Details: epigastric and no hepatosplenomegaly Extremity Common normals: no clubbing, cyanosis or edema Neuro Common normals: oriented x3, moves all extremities and no focal motor deficits Psych Common normals: mental status grossly normal, denies hallucinations, denies homicidal ideation and denies suicidal ideation Results Labs Labs: Short CBC 07/26/24 Range/Units 05:00 WBC 8.2 (4.0-11.0) 10^3/uL Hgb 14.8 (12.0-16.0) g/dL Hct 43.3 (36.0-48.0) % Plt Count 352 (150-450) 10^3/uL BMP 07/26/24 05:00 Sodium 137 Potassium 3.0 L Chloride 102 Carbon Dioxide 16.8 L BUN 14.0 Creatinine 1.15 H Glucose 224 H Calcium 9.1 Liver Function 07/26/24 Range/Units 05:00 Total Bilirubin 1.0 (0.2-1.0) mg/dL Direct Bilirubin 0.2 (0.0-0.2) mg/dL AST 24 (15-37) U/L ALT 31 (14-59) U/L Alkaline Phosphatase 83 (46-116) U/L Albumin 4.0 (3.4-5.0) g/dL Assessment and Plan Assessment and Plan (1) Cannabis hyperemesis syndrome concurrent with and due to cannabis abuse: (2) Post-cholecystectomy syndrome: (3) Nausea, vomiting, and diarrhea: (4) Marijuana abuse, continuous: Plan Suspected cannabis hyperemesis syndrome along with post cholecystectomy syndrome. Will give one-time dose of Haldol to see if her symptoms improved. I will also add cholestyramine to help with diarrhea and abdominal pain. Patient currently on full liquid diet. Advance diet as tolerated. Continue with supportive care along with IV fluids, antiemetics and combination of oral/IV narcotic as needed for pain. Also started on IV Protonix. No need for IV antibiotic based on clinical assessment, even though CT abdomen pelvis revealed possible ileitis. Monitor clinically. Patient educated and counseled on marijuana abuse. She verbalized understanding and was receptive to counseling and will attempt to stop using marijuana.
[2024-07-26] MEDS: LACTATED RINGER'S SOLUTION 1,000 ML 125 ML IV (14:38)
[2024-07-26] MEDS: HALOPERIDOL LACTATE 5 MG/ML VIAL IV (14:38)
--- NOTE | 2024-07-27 09:05 | SWNOTE1 ---
SW consulted due to financial concerns. Pt was not on bed board on 07/26/24, so SW was not able to complete consult.
== END 2024-07-26 16:15 | disposition left against medical advice (07) ==
LOC: ER 07:07 → MS 13:44
PROVIDERS: Emergency Medicine; Admitting Provider Internal Medicine; Emergency Provider Student in an Organized Health Care Education/Training Program; Visit Provider Internal Medicine
DX: R11.2 Nausea with vomiting, unspecified (principal); F12.10 Cannabis abuse, uncomplicated; K91.5 Postcholecystectomy syndrome; R19.7 Diarrhea, unspecified; E87.6 Hypokalemia; Z90.49 Acquired absence of other specified parts of digestive tract; F17.200 Nicotine dependence, unspecified, uncomplicated; R10.9 Unspecified abdominal pain
CPT/HCPCS: 36415; 74177; 80048; 80076; 82150; 83690; 84703; 85025; 87045; 87046; 87427; 87493; 96361; 96365; 96366; 96367; 96375; 96376; 99285; G0378; J1171; J1200; J1630; J2405; J2550; J3480; J3490; Q9967

== ENCOUNTER 2024-12-29 06:43 | Emergency (ER) | payer OTHER, SELFPAY ==
[2024-12-29 06:47] VITALS: BP 111/82; PULSE 71; TEMP 36.7; O2SAT 100; BMI 26.5
--- OUTSIDE RECORDS SUMMARY | 2024-12-29 06:49 | XMS_ITS | CCD ---
Author Organization [facility] Care Team Providers Care Implant Coordinator Name Role Phone BRIGITTE BA Attending Unavailable Unavailable Primary Care Provider UnavailNASH Mortensen Attending Unavailable NASH MERA Admitting Unavailable SELF, REFERRED Referring Unavailable SELF, REFERRED Primary Care Unavailable GONZALEZ POWELL Attending Unavailable GONZALEZ POWELL Admitting Unavailable NO FAMILY, PHYSICIAN Primary Care Provider Unava DO Reggie Lr Emergency Provider Unavailable Primary Care Provider UnavailIKE [place] Primary Care Unavailable GONZALEZ POWELL Attending Unavailable REQUEST, NONE LISTED Primary Care Unavaila HILDA Trevizo Attending Unavailable JOSELO Mccray, HILDA Admitting Unavailable ROSS CAICEDO Consulting Unavailable HILDA ANN Consulting Unavailable JAYNE, NONE LISTED Primary Care Unavaillori ESPINOZA, DR GODWIN Naranjo Attending Unavailable BAUDILIO, DR GODWIN Naranjo Consulting Unavailable BAUDILIO, DR GODWIN Naranjo Admitting Unavailable RAFA KAPLAN Consulting Unavailable Luis Leung Unavailable NO FAMILY, PHYSICIAN Primary Care Unavailable Howie Plata Jr Attending Unavailable Howie Plata Jr Admitting Unavailable Unallocated , Lennys Provider Primary Care Provi meño Unallocated , Noms Provider Primary Care Provi meño Nash Mera CNM Unavailable Peterson Weber LPC Unavailable Unavailable Andres BLAKE-Khadra DHALIWAL Unavailable [phone] NASH MERA Attending Unavailable PETERSON WEBER Attending Unavailable NASH MERA Referring Unavailable NASH MERA Attending Unavailable NASH MERA Attending Unavailable PETERSON WEBER Attending Unavailable KHADRA CAMPOS Attending Unavailable NASH MERA Attending Unavailable Allergies Allergy Classification Reported Allergen(s) Allergy Type Date of Onset Reaction(s) Facility (4 sources) Penicillins; Translations: [PENICILLINS] Propensity to adverse reactions to drug 08-21-19 19 Other (See Comments) [employer] (4 sources) Morphine; Translations: [MORPHINE] Drug Allergy 05-01-20 Hives [facility] Repository (2 sources) Penicillin Drug Allergy 07-24-19 20 [facility] Repository (18 sources) Morphine Drug Allergy 05-23-20 Hives [facility] (1 source) Penicillins Propensity to adverse reactions to drug 08-21-19 19 Unknown [facility] (1 source) Morphine Drug Allergy 04-29-[address] [facility] Repository (2 sources) [facility] [employer] Other (1 source) Amoxicillin Drug Allergy 06-30-19 24 [facility] Repository (1 source) Morphine Drug Allergy 06-30-19 24 [facility] Repository (1 source) Penicillins Drug allergy (disorder) 04-20-20 [facility] Repository (15 sources) Penicillins Drug Intolerance 08-21-19 19 Rash, Hives, Other [facility] (2 sources) Escitalopram Drug Allergy 12-08-19 25 Other [facility] (2 sources) Sertraline Drug Allergy 12-08-19 25 Other [facility] Medications Current Medications Medication Drug Class(es) [...] mg docusate sodium 50 mg / sennosides, skilled nursing 8.6 mg oral tablet (1 source) Start: [...] oral tablet (1 source) Aluminum Complex Start: 05-17-20 take 1 tablet by mouth every six hours Sucralfate (Carafate) 1 gram tablet Active 1 GM PO Q6H 56 14 May 17, 2022 12:00am 24 hr venlafaxine 37.5 mg extended release oral capsule (2 sources) Serotonin and Norepinephrine Reuptake Inhibitor Start: 12-08-19 End: 12-08-19 take 1 capsule by mouth once daily venlafaxine XR (Effexor XR) 37.5 MG 24 hr capsule Indications: Severe episode of recurrent major depressive disorder, without psychotic features (HCC) , AYDIN (generalized anxiety disorder) , PTSD (post-traumatic stress disorder) Take 1 capsule (37.5 mg) by mouth Daily Do not crush or chew. 30 capsule 1 12/07/2024 12/07/2025 Active Completed/Discontinued Medications Medication Drug Class(es) Dates Sig (Normalized) Sig (Original) Acetaminophen / Chlorpheniramine / Phenylephrine (4 sources) Histamine-1 Receptor Antagonist, alpha-1 Adrenergic Agonist Start: 12-08-2023 End: 03-01-2024 take 2 tablets by mouth every six hours Tcxrsbuwa-KH-Lgera minophen 2-5-325 & 5-325 MG misc Indications: Pharyngitis, unspecified etiology Take 2 tablets by mouth every 6 (six) hours if needed (discomfort) 20 each 12/08/2023 03/01/2024 Discontinued (Therapy completed) Start: 12-08-2023 take 2 tablets by mo [facility] every six hours Wmrkeafdq-TZ-Kpvtitqoxypgi 2-5-325 & 5-3 25 MG misc Indications: [...] on above: Take 1 tablet by danny every 6 hours as needed. calcium carbonate [...] docusate sodiu m (COLACE) capsule 100 mg escitalopram 20 mg oral tablet (6 sources) Serotonin Reuptake Inhibitor Start: 03-01-2024 End: 09-08-2024 take 1 tablet by mouth once daily escitalopram (Lexapro) 20 MG tablet Indications: Post depression (CMS/HCC) Take 1 tablet (20 mg) by mouth Daily 30 tablet 1 03/01/2024 09/08/2024 Discontinued (Side effects) 2 ml famotidine 10 mg/ml injection (3 [...] (REGLAN) inje ction 10 mg miSOPROStol (CYTOTEC) pre-split tablet TABS 25 mcg (1 source) Start: 02-12-2021 End: 02-13-2021 miSOPROStol (CYTOTEC) pre-split tablet TABS 25 mcg oxytocin (PITOCIN) 30 units in 500 mL infusion (1 source) Start: 02-13-2021 End: 02-13-2021 oxytocin (PITOCIN) 30 units in 500 mL infusion Vit-Fe Fumarate-FA ( Plus/Iron) 27-1 MG tablet (8 sources) Start: 09-23-2023 End: 09-08-2024 take 1 tablet by mouth once daily Vit-Fe Fumarate-FA ( Plus/Iron) 27-1 MG tablet Indications: Encounter for supervision of other normal , second trimester Take 1 tablet by mouth Daily 30 tablet 3 09/23/2023 09/08/2024 Discontinued (Therapy completed) Start: 09-23-2023 take 1 tablet by danny th once daily Vit-Fe Fumarate-FA ( Plus/Iron) 27-1 MG tablet Indications: Encounter for supervision of other normal , second trimester Take 1 tablet by mouth Daily 30 tablet 3 09/23/2023 Active Problems Active Problems Problem Classification Problem Date Documented Da te Episodic/Chronic Abdominal pain (9 sources) Epigastric pain; Translations: [Epigastric pain] Onset: 2 05-17-2022 Episodic Adjustment disorders (10 sources) Stress; Translations: [Reaction to severe stress, unspecified] Onset: 5 09-08-2024 Chronic Administrative/social admission (2 sources) Stress 09-08-2024 Episodic Anxiety disorders (18 sources) Generalized anxiety disorder; Translations: [Generalized anxiety disorder] Onset: 5 09-08-2024 Chronic Anxiety disorders (12 sources) Difficulty controlling anger; Translations: [Irritability and anger] Onset: 5 09-08-2024 Episodic Intestinal infection (1 source) Acute gastroenteropathy due to [place] agent; Translations: [ACUTE GASTROENTROPATHY NORWALK AGNT] Onset: 3 Episodic Miscellaneous mental health disorders (2 sources) depression; Translations: [ depression] 03-01-2024 Episodic Mood disorders (4 sources) Severe recurrent major depression without psychotic features; Translations: [Major depressive disorder, recurrent severe without psychotic features] Onset: 5 12-07-2024 Chronic Nausea and vomiting (7 sources) Nausea with [...] unspecified trimester] Onset: 1 Episodic Substance-related disorders (6 sources) Cannabis use, unspecified, uncomplicated; Translations: [Marijuana user] Onset: 2 Episodic Unclassified (15 sources) OB Reminders Onset: 3 05-14-2023 Past or Other Problems Problem Classification Problem Date Documented Date Episodic/Chronic Biliary tract disease (15 sources) Cholelithiasis without obstruction; Translations: [Calculus of gallbladder without cholecystitis without obstruction] Onset: 09-17-2023 09-17-2023 Episodic Complications of surgical procedures or medical care (15 sources) Biliary anastomotic leak; Translations: [Other postprocedural complications and disorders of digestive system] Onset: 03-29-2021 Resolved: 09-17-2023 09-17-2023 Episodic distress and abnormal forces of labor (17 sources) Liveborn with labor distress; Translations: [Labor and delivery complicated by stress, unspecified] Onset: 05-22-2022 Resolved: 09-17-2023 Episodic Menstrual disorders (15 sources) Amenorrhea; Translations: [Amenorrhea, unspecified] Onset: 09-17-2023 Resolved: 09-17-2023 09-17-2023 Chronic Mood disorders (9 sources) Mood disorders Onset: 09-08-2024 Resolved: 12-07-2024 09-08-2024 Other infections; including parasitic (15 sources) History of chlamydial infection; Translations: [Personal history of other infectious and parasitic diseases] Onset: 06-27-2020 Resolved: 09-17-2023 09-17-2023 Episodic Residual codes; unclassified (1 source) Acquired absence of other specified parts of digestive tract; Translations: [ACQ ABSENCE OTH PART DIGESTV TRACT] Onset: 05-06-2022 Episodic Residual codes; unclassified (15 sources) H/O: miscarriage; Translations: [Personal history of other complications of , childbirth and the puerperium] Onset: 06-27-2020 Resolved: 09-17-2023 09-17-2023 Episodic Results Test Name Value Interpretation Reference Range Facility Laboratoryon 03-02-2024 C. glabrata RNA UTE+probe Ql (Vag fld) Not detected NOT DETECTED [facility] Comment on above: Lucía species C. albicans, C. tropicalis, C. parapsilosis, and/or C. dubliniensis can be detected, but not differentiated, in the Lucía spp. result. Laboratory - Microbiology an d Antimicrobial susceptibilityon 03-02-2024 C. trachomatis rRNA UTE+probe Ql (Unsp spec) Not detected NOT DETECTED [facility] Lucía sp rRNA Probe Ql (Vag fld) Not detected NOT DETECTED [facility] Lactobacillus crispatus+gasseri+jense supriya + Gardnerella vaginalis + Atopobium vaginae rRNA UTE+probe Ql (Vag fld) Negative NEGATIVE [facility] N. gonorrhoeae rRNA UTE+probe Ql (Unsp spec) Not detected NOT DETECTED [facility] Comment on above: For additional infor teresa, please refer to [email or web address] (This link is being provided for information/ educational purposes only.) T. vaginalis rRNA UTE+probe Ql (Unsp spec) Not detected NOT DETECTED [facility] No Panel Informationon 03-02 Performing Organization Information Site ID: QPT Name: [facility] Address: [address] [place] [address], [address] [place] [id number] Director: Shamar Colunga MD [facility] HCG,Quantitativeon 3 HCG,Quantitative 25.40 m[iU]/mL Normal [facility] Comment on above: Result Comment: Appr oximate Approximate hCG Gestational Age Range (mIU/ml) (weeks) 0.2-1 5-50 1-2 50-500 2-3 100-5,000 3-4 500-10,000 4-5 1,000-50,000 5-6 10,000-100,000 6-8 15,000-200,000 8-12 10,000-100,000 PERFORMED BY: [place] [address] PATHOLOGIST SAS ANALYST ARJUN HASTINGS M.D. Performed By: #### H CGQNT #### [facility] [address] [place], [place] [id number] [place] HCG,Urineon 04-21-2023 Beta HCG ( test) Ql (U) Negative Normal [facility] Comment on above: Order Comment: Name Collection Type:: Clean-Voided Midstream Result Comment: PERF ORMED BY: [place] [address] PATHOLOGIST SAS ANALYST ARJUN HASTINGS M.D. Performed By: #### U A, UHCG #### [facility] [address] [place] [id number] [place] Urinalysison 04-21-2023 Appearance (U) Clear Normal Clear [facility] Comment on above: Order Comment: Name Collection Type:: Clean-Voided Midstream Performed By: #### U A, UHCG #### [facility] [address] [place] [address] [place] Bilirubin,Urine Negative Normal Negative [facility] Comment on above: Order Comment: Name Collection Type:: Clean-Voided Midstream Performed By: #### U A, UHCG #### [facility] [address] [place] [address] Color (U) Yellow Normal Yellow [facility] Comment on above: Order Comment: Name Collection Type:: Clean-Voided Midstream Performed By: #### U A, UHCG #### [address] Glucose Ql (U) Normal Normal Normal [facility] Comment on above: Order Comment: Name Collection Type:: Clean-Voided Midstream Performed By: #### U A, UHCG #### [address] Ketones Ql (U) Negative Normal Negative [facility] Comment on above: Order Comment: Name Collection Type:: Clean-Voided Midstream Performed By: #### U A, UHCG #### [facility] [address] [place] [address] Leukocyte esterase Test strip Ql (U) Negative Normal Negative [facility] Comment on above: Order Comment: Name Collection Type:: Clean-Voided Midstream Performed By: #### U A, UHCG #### [facility] [address] [place] [address] [place] Nitrite,Urine Negative Normal Negative [facility] Comment on above: Order Comment: Name Collection Type:: Clean-Voided Midstream Performed By: #### U A, UHCG #### [facility] [address] [place] [address] [place] Occult Blood,Urine Negative Normal Negative [facility] Comment on above: Order Comment: Name Collection Type:: Clean-Voided Midstream Performed By: #### U A, UHCG #### [facility] [address] [place] [address] [place] pH (U) 7.5 [pH] Normal 5.0-9.0 [facility] Comment on above: Order Comment: Name Collection Type:: Clean-Voided Midstream Performed By: #### U A, UHCG #### [facility] [address] Protein,Urine Negative Normal Negative [facility] Comment on above: Order Comment: Name Collection Type:: Clean-Voided Midstream Performed By: #### U A, UHCG #### [address] Specificy Mcdavid,Urine 1.011 Normal 1.001-1.030 [facility] Comment on above: Order Comment: Name Collection Type:: Clean-Voided Midstream Performed By: #### U A, UHCG #### [address] Urobilinogen,Urine Normal Normal Normal [facility] Comment on above: Order Comment: Name Collection Type:: Clean-Voided Midstream Performed By: #### U A, UHCG #### [address] AMYLASEon 10-19-2022 Amylase [Catalytic activity/Vol] 42 U/L Normal 25-[address] [facility] Comment on above: Performed By: #### L IPA, ROSS, CMP #### [facility] [address] [place] [address] Dr. Radha Garcia CBC AUTO DIFFon 10-19-2022 BASO # 0.0 103/ul Normal 0.0-0.[address] [facility] Comment on above: Performed By: #### C BC #### [facility] [address] [place] [address] Dr. Radha Garcia Basophils/100 WBC (Bld) 0.4 % Normal 0.2-2.[address] [facility] Comment on above: Performed By: #### C BC #### [facility] [address] [place] [address] Dr. Radha Garcia EO # 0.1 103/ul Normal 0.0-0.[address] [facility] Comment on above: Performed By: #### C BC #### [facility] [address] [place] [address] Dr. Radha Garcia Eosinophils/100 WBC (Bld) 2.9 % Normal 0.9-7.[address] [facility] Comment on above: Performed By: #### C BC #### [facility] [address] [place] [address] Dr. Radha Garcia Erythrocyte distribution width (RBC) [Ratio] 12.6 % Normal 11.0-15.[address] [facility] Comment on above: Performed By: #### C BC #### [facility] [address] [place] [address] Dr. Radha Garcia Hematocrit (Bld) [Volume fraction] 41.9 % Normal 36.0-48.[address] [facility] Comment on above: Performed By: #### C BC #### [facility] [address] [place] [address] Dr. Radha Garcia Hemoglobin (Bld) [Mass/Vol] 13.8 g/dL Normal 12.0-16.[address] [facility] Comment on above: Performed By: #### C BC #### [facility] [address] [place] [address] Dr. Radha Garcia IG # 0.01 10e3/ul Normal 0.00-0.[address] [facility] Comment on above: Performed By: #### C BC #### [facility] [address] [place] [address] Dr. Radha Garcia IG % 0.2 % Normal 0.0-0.5 [facility] Comment on above: Performed By: #### C BC #### [facility] [address] [place] [address] Dr. Radha Garcia LYMPH # 1.2 103/ul Normal 1.2-3.8 [facility] Comment on above: Performed By: #### C BC #### [facility] [address] [place] [address] Dr. Radha Garcia Lymphocytes/100 WBC (Bld) 25.6 % Normal 20.5-60.[address] [facility] Comment on above: Performed By: #### C BC #### [facility] [address] [place] [address] Dr. Radha Garcia MANUAL DIFF REQ NO Normal [facility] Comment on above: Performed By: #### C BC #### [facility] [address] [place] [address] Dr. Radha Garcia MCH (RBC) [Entitic mass] 29.9 pg Normal 26.7-34.[address] [facility] Comment on above: Performed By: #### C BC #### [facility] [address] [place] [address] Dr. Radha Garcia MCHC (RBC) [Mass/Vol] 32.9 g/dL Normal 29.9-35.[address] [facility] Comment on above: Performed By: #### C BC #### [facility] [address] [place] [address] Dr. Radha Garcia MCV (RBC) [Entitic vol] 90.9 fL Normal 81.0-99.[address] [facility] Comment on above: Performed By: #### C BC #### [facility] [address] [place] [address] Dr. Radha Garcia MONO # 0.3 103/ul Normal 0.3-0.[address] [facility] Comment on above: Performed By: #### C BC #### [facility] [address] [place] [address] Dr. Radha Garcia Monocytes/100 WBC (Bld) 6.5 % Normal 1.7-12.[address] [facility] Comment on above: Performed By: #### C BC #### [facility] [address] [place] [address] Dr. Radha Garcia NEUT # 2.9 103/ul Normal 1.4-6.[address] [facility] Comment on above: Performed By: #### C BC #### [facility] [address] [place] [address] Dr. Radha Garcia Neutrophils/100 WBC (Bld) 64.4 % Normal 43.0-75.[address] [facility] Comment on above: Performed By: #### C BC #### [facility] [address] [place] [address] Dr. Radha Garcia Platelet mean volume (Bld) [Entitic vol] 10.6 fL Normal 9.5-13.[address] [facility] Comment on above: Performed By: #### C BC #### [facility] [address] [place] [address] Dr. Radha Garcia PLT 246 103/ul Normal 150-[address] [facility] Comment on above: Performed By: #### C BC #### [facility] [address] [place] [address] Dr. Radha Garcia RBC 4.61 106/ul Normal 4.20-5.[address] [facility] Comment on above: Performed By: #### C BC #### [facility] [address] [place] [address] Dr. Radha Garcia WBC 4.5 103/ul Normal 4.0-11.[address] [facility] Comment on above: Performed By: #### C BC #### [facility] [address] [place] [address] Dr. Radha Garcia GI PANEL (PCR)on 10-19-2022 Adenovirus F 40/41 Not detected Normal NOT DETECTED [facility] Comment on above: Performed By: #### G IPANEL #### [facility] [address] [place] [address] Dr. Radha Garcia Astrovirus Not detected Normal NOT DETECTED [facility] Comment on above: Performed By: #### G IPANEL #### [facility] [address] [place] [address] Dr. Radha Garcia C. Diff toxin A/B Not detected Normal NOT DETECTED [facility] Comment on above: Performed By: #### G IPANEL #### [facility] [address] [place] [address] Dr. Radha Garcia Campylobacter Not detected Normal NOT DETECTED [facility] Comment on above: Performed By: #### G IPANEL #### [facility] [address] [place] [address] Dr. Radha Garcia Cryptosporidium Not detected Normal NOT DETECTED [facility] Comment on above: Performed By: #### G IPANEL #### [facility] [address] [address] [address] Radha Garcia Cyclos. Cayetanensis Not detected Normal NOT DETECTED [facility] Comment on above: Performed By: #### G IPANEL #### [facility] [address] [address] [address] Radha Garcia E. Coli O157 Not Applicable Normal Not Applicable [facility] Comment on above: Performed By: #### G IPANEL #### [facility] [address] [address] [address] Radha Garcia E. histolytica Not detected Normal NOT DETECTED [facility] Comment on above: Performed By: #### G IPANEL #### [facility] [address] [address] [address] Radha Garcia EAEC Not detected Normal NOT DETECTED [facility] Comment on above: Performed By: #### G IPANEL #### [facility] [address] [address] [address] Radha Garcia EIEC Not detected Normal NOT DETECTED [facility] Comment on above: Performed By: #### G IPANEL #### [facility] [address] [place] [address] Dr. Radha Garcia EPEC Not detected Normal NOT DETECTED [facility] Comment on above: Performed By: #### G IPANEL #### [facility] [address] [place] [address] Dr. Radha Garcia ETEC Not detected Normal NOT DETECTED [facility] Comment on above: Performed By: #### G IPANEL #### [facility] [address] [place] [address] Dr. Radha Garcia G. Lamblia Not detected Normal NOT DETECTED [facility] Comment on above: Performed By: #### G IPANEL #### [facility] [address] [place] [address] Dr. Radha Garcia GIPANEL CONTROLS PASSED Normal [facility] Comment on above: Performed By: #### G IPANEL #### [facility] [address] [place] [address] Dr. Radha MALIK BANNER HEADER GI PANEL BACTERIA Normal [facility] Comment on above: Performed By: #### G IPANEL #### [facility] [address] [address] [address] Radha LOUIS ECOLI GI PANEL DIARRHEAGENIC E.COLI / SHIGELLA Normal [facility] Comment on above: Performed By: #### G IPANEL #### [facility] [address] [address] [address] Radha LOUIS INFO SEE BELOW [facility] Comment on above: Result Comment: EAEC - Enteroaggregative E. Coli EPEC- Enteropathogenic E. Coli ETEC- Enterotoxigenic E. Coli lt/st STEC- Shigella-like toxin-producing E. Coli stx1/stx2 EIEC- Shigella/Enteroinvasive E. Coli Performed By: #### G IPANEL #### [facility] [address] [place] [address] Dr. Radha LOUIS PARASITES GI PANEL PARASITES Normal [facility] Comment on above: Performed By: #### G IPANEL #### [facility] [address] [place] [address] Dr. Radha LOUIS VIRUS GI PANEL VIRUSES Normal [facility] Comment on above: Performed By: #### G IPANEL #### [facility] [address] [place] [address] Dr. Radha Garcia Norovirus GI/GII Detected Abnormal NOT DETECTED [facility] Comment on above: Performed By: #### G IPANEL #### [facility] [address] [place] [address] Dr. Radha Garcia P. Shigelloides Not detected Normal NOT DETECTED [facility] Comment on above: Performed By: #### G IPANEL #### [facility] [address] [address] [address] Radha Garica Rotavirus A Not detected Normal NOT DETECTED The [facility] Comment on above: Performed By: #### G IPANEL #### [facility] [address] [place] [address] Dr. Radha Garcia Salmonella Not detected Normal NOT DETECTED [facility] Comment on above: Performed By: #### G IPANEL #### [facility] [address] [place] [address] Dr. Radha Garcia Sapovirus Not detected Normal NOT DETECTED [facility] Comment on above: Performed By: #### G IPANEL #### [facility] [address] [place] [address] Dr. Radha Garcia STEC Not detected Normal NOT DETECTED [facility] Comment on above: Performed By: #### G IPANEL #### [facility] [address] [place] [address] Dr. Radha Garcia Vibrio Not detected Normal NOT DETECTED [facility] Comment on above: Performed By: #### G IPANEL #### [facility] [address] [place] [address] Dr. Radha Garcia Vibrio Cholera Not detected Normal NOT DETECTED The [facility] Comment on above: Performed By: #### G IPANEL #### [facility] [address] [place] [address] Dr. Radha Garcia Y. Enterocolitica Not detected Normal NOT DETECTED [facility] Comment on above: Performed By: #### G IPANEL #### [facility] [address] [place] [address] Dr. Radha Garcia LIPASEon 10-19-2022 Lipase [Catalytic activity/Vol] 54.0 U/L Critically low 73.0-393.[address] [facility] Comment on above: Performed By: #### L ROSS BAKER CMP #### [facility] [address] [place] [address] Dr. Radha Garcia PROF 14(COMP METB)on 023 Albumin [Mass/Vol] 3.3 g/dL Critically low 3.4-5.0 [facility] Comment on above: Performed By: #### L ROSS BAKER, CMP #### [facility] [address] [place] [address] Dr. Radha Garcia Albumin/Globulin [Mass ratio] 1.0 {ratio} Normal [facility] Comment on above: Performed By: #### L IPA, ROSS, CMP #### [facility] [address] [address] [address] Radha Garcia ALP [Catalytic activity/Vol] 58 U/L Normal 46-[address] [facility] Comment on above: Performed By: #### L IPA, ROSS, CMP #### [facility] [address] [address] [address] Radha Garcia ALT [Catalytic activity/Vol] 25 U/L Normal 14-[address] [facility] Comment on above: Performed By: #### L IPA, ROSS, CMP #### [facility] [address] [address] [address] Radha Garcia Anion gap [Moles/Vol] 14.5 mmol/L Normal [facility] Comment on above: Performed By: #### L IPA, ROSS, CMP #### [facility] [address] [address] [address] Radha Garcia AST [Catalytic activity/Vol] 19 U/L Normal 15-[address] [facility] Comment on above: Performed By: #### L IPA, ROSS, CMP #### [facility] [address] [address] [address] Radha Garcia Bilirubin [Mass/Vol] 0.8 mg/dL Normal 0.2-1.[address] [facility] Comment on above: Performed By: #### L IPA, ROSS, CMP #### [facility] [address] [address] [address] Radha Garcia Calcium [Mass/Vol] 8.4 mg/dL Critically low 8.5-10.1 [facility] Comment on above: Performed By: #### L IPA, ROSS, CMP #### [facility] [address] [address] [address] Radha Garcia Chloride [Moles/Vol] 107 mmol/L Normal 98-[address] [facility] Comment on above: Performed By: #### L IPA, ROSS, CMP #### [facility] [address] [address] [address] Radha Garcia CO2 [Moles/Vol] 25.8 mmol/L Normal 21.0-32.0 [facility] Comment on above: Performed By: #### L IPA, ROSS, CMP #### [facility] [address] [address] [address] Radha Garcia Creatinine [Mass/Vol] 0.78 mg/dL Normal 0.55-1.[address] [facility] Comment on above: Performed By: #### L IPA, ROSS, CMP #### [facility] [address] [address] [address] Radha Garcia EGFR-AF CYPRIOT >60 Normal >=60 [facility] Comment on above: Performed By: #### L IPA, ROSS, CMP #### [facility] [address] [address] [address] Radha Garcia EGFR-NON AF CYPRIOT >60 Normal >=[address] [facility] Comment on above: Performed By: #### L IPA, ROSS, CMP #### [facility] [address] [address] [address] Radha Garcia Globulin (S) [Mass/Vol] 3.2 g/dL Normal [facility] Comment on above: Performed By: #### L IPA, ROSS, CMP #### [facility] [address] [address] [address] Radha Garcia Glucose [Mass/Vol] 96 mg/dL Normal 74-106 [facility] Comment on above: Performed By: #### L IPA, ROSS, CMP #### [facility] [address] [address] [address] Radha Garcia Potassium [Moles/Vol] 3.3 mmol/L Critically low 3.5-5.[address] [facility] Comment on above: Performed By: #### L IPA, ROSS, CMP #### [facility] [address] [address] [address] Radha Garcia Protein [Mass/Vol] 6.5 g/dL Normal 6.4-8.2 [facility] Comment on above: Performed By: #### L IPA, ROSS, CMP #### [facility] [address] [address] [address] Radha Garcia Sodium [Moles/Vol] 144 mmol/L Normal 136-145 [facility] Comment on above: Performed By: #### L ROSS BAKER, CMP #### [facility] [address] [address] [address] Radha Garcia Urea nitrogen [Mass/Vol] 6.0 mg/dL Critically low 7.0-18.[address] [facility] Comment on above: Performed By: #### L ROSS BAKER, CMP #### [facility] [address] [address] [address] Radha Garcia Urea nitrogen/Creatinine [Mass ratio] 7.7 mg/mg Normal [facility] Comment on above: Performed By: #### L ROSS BAKER, CMP #### [facility] [address] [address] [address] Radha Garcia 36on 07-16-2022 36 Attempted to call an d schedule an EGD, but mail box is full unable to leave a message. Will mail her a letter. Normal [facility] 36on 06-06-2022 36 ----- Message from Mary Jo Javier MA sent at 05/26/2022 10:02 AM EST ----- For your review! Normal [facility] BETA HCG, QUANTITATIVE FOR E Don 05-25-2022 HCG.beta subunit Qn m[IU]/mL Normal <5.0 [facility] Comment on above: Order Comment: Speci men Type: BLOOD SPECIMEN Ordering Facility: [facility] Address: [address] [place], [place] [id number] Result Comment: Nega tive Performed By: #### 2 4323-8, 3040-3, HCGED, 31270-2 #### [facility] CLIA [id number] [facility] [place] [address] [place] CBC W Auto Differential pane l (Bld)on 05-25-2022 Basophils (Bld) [#/Vol] 10*3/uL Normal <0.11 [facility] Comment on above: Order Comment: Speci men Type: BLOOD SPECIMEN Ordering Facility: [facility] Address: [address] [id number] Performed By: #### 5 7021-8 #### [facility] [place] [id number] [place] Basophils/100 WBC (Bld) 0.1 % Normal [facility] Comment on above: Order Comment: Speci men Type: BLOOD SPECIMEN Ordering Facility: [facility] Address: [address] [address] Performed By: #### 5 7021-8 #### [facility] [place] [id number] [place] [address] [facility] [place] Differential cell count method Nom (Bld) Auto Normal [facility] Comment on above: Order Comment: Speci men Type: BLOOD SPECIMEN Ordering Facility: [facility] Address: [address] [place] [address] Performed By: #### 5 7021-8 #### [facility] [place] [id number] [address] [place] [address] [place] Eosinophils (Bld) [#/Vol] 0.08 10*3/uL Normal <0.46 [facility] Comment on above: Order Comment: Speci men Type: BLOOD SPECIMEN Ordering Facility: [facility] Address: [address] [place] [address] Performed By: #### 5 7021-8 #### [facility] [place] [id number] [place] [address] OF [facility] Eosinophils/100 WBC (Bld) 1.0 % Normal [facility] Comment on above: Order Comment: Speci men Type: BLOOD SPECIMEN Ordering Facility: [facility] Address: [address] [address] Performed By: #### 5 7021-8 #### [facility] [place] [id number] [place] [address] OF [place] Erythrocyte distribution width (RBC) [Ratio] 12.4 % Normal 11.5-15.0 [facility] Comment on above: Order Comment: Speci men Type: BLOOD SPECIMEN Ordering Facility: [facility] Address: [address] Performed By: #### 5 7021-8 #### [facility] [place] [id number] [address] [place] [address] [place] Hematocrit (Bld) [Volume fraction] 43.0 % Normal 36.0-46.0 [facility] Comment on above: Order Comment: Speci men Type: BLOOD SPECIMEN Ordering Facility: [facility] Address: [address] [address] Performed By: #### 5 7021-8 #### [facility] [place] [id number] [address] [place] [address] [place] Hemoglobin (Bld) [Mass/Vol] 14.2 g/dL Normal 11.5-15.5 [facility] Comment on above: Order Comment: Speci men Type: BLOOD SPECIMEN Ordering Facility: [facility] Address: [address] [address] Performed By: #### 5 7021-8 #### [facility] [place] [id number] [address] [place] [address] [place] Immature granulocytes (Bld) [#/Vol] 10*3/uL Normal <0.10 [facility] Comment on above: Order Comment: Speci men Type: BLOOD SPECIMEN Ordering Facility: [facility] Address: [address] [address] Performed By: #### 5 7021-8 #### [facility] [place] [id number] [address] [place] [address] [place] Immature granulocytes/100 WBC (Bld) 0.2 % Normal [facility] Comment on above: Order Comment: Speci men Type: BLOOD SPECIMEN Ordering Facility: [facility] Address: [address] Performed By: #### 5 7021-8 #### [facility] [place] [id number] [address] [place] [address] [place] Lymphocytes (Bld) [#/Vol] 0.30 10*3/uL Low 1.00-4.00 [facility] Comment on above: Order Comment: Speci men Type: BLOOD SPECIMEN Ordering Facility: [facility] Address: [address] [address] Performed By: #### 5 7021-8 #### [facility] [place] [id number] OF [facility] Lymphocytes/100 WBC (Bld) 3.6 % Normal [facility] Comment on above: Order Comment: Speci men Type: BLOOD SPECIMEN Ordering Facility: [facility] Address: [address] [address] Performed By: #### 5 7021-8 #### [facility] [place] [id number] [address] [place] MCH (RBC) [Entitic mass] 28.7 pg Normal 26.0-34.0 [facility] Comment on above: Order Comment: Speci men Type: BLOOD SPECIMEN Ordering Facility: [facility] Address: [address] [address] Performed By: #### 5 7021-8 #### [facility] [place] [id number] [address] [place] MCHC (RBC) [Mass/Vol] 33.0 g/dL Normal 30.5-36.0 [facility] Comment on above: Order Comment: Speci men Type: BLOOD SPECIMEN Ordering Facility: [facility] Address: [address] Performed By: #### 5 7021-8 #### [facility] [place] [id number] [address] [place] MCV (RBC) [Entitic vol] 86.9 fL Normal 80.0-100.0 [facility] Comment on above: Order Comment: Speci men Type: BLOOD SPECIMEN Ordering Facility: [facility] Address: [address] [address] Performed By: #### 5 7021-8 #### [facility] CLIA [id number] [address] [place] [address] [place] Monocytes (Bld) [#/Vol] 0.19 10*3/uL Normal <0.87 [facility] Comment on above: Order Comment: Speci men Type: BLOOD SPECIMEN Ordering Facility: [facility] Address: [address] [address] Performed By: #### 5 7021-8 #### [facility] CLIA [id number] [address] [place] [address] [place] Monocytes/100 WBC (Bld) 2.3 % Normal [facility] Comment on above: Order Comment: Speci men Type: BLOOD SPECIMEN Ordering Facility: [facility] Address: [address] [address] Performed By: #### 5 7021-8 #### [facility] [place] [id number] [place] [address] [place] Neutrophils (Bld) [#/Vol] 7.62 10*3/uL High 1.45-7.50 [facility] Comment on above: Order Comment: Speci men Type: BLOOD SPECIMEN Ordering Facility: [facility] Address: [address] [address] Performed By: #### 5 7021-8 #### [facility] [place] [id number] [address] [place] Neutrophils/100 WBC (Bld) 92.8 % Normal [facility] Comment on above: Order Comment: Speci men Type: BLOOD SPECIMEN Ordering Facility: [facility] Address: [address] [address] Performed By: #### 5 7021-8 #### [facility] [place] [id number] [address] [place] [address] [place] Nucleated RBC (Bld) [#/Vol] 10*3/uL Normal <0.01 [facility] Comment on above: Order Comment: Speci men Type: BLOOD SPECIMEN Ordering Facility: [facility] Address: [address] [address] Performed By: #### 5 7021-8 #### [facility] [place] [id number] [address] [place] [address] [place] Nucleated RBC/100 WBC (Bld) [Ratio] 0.0 /100 WBC Normal [facility] Comment on above: Order Comment: Speci men Type: BLOOD SPECIMEN Ordering Facility: [facility] Address: [address] Performed By: #### 5 7021-8 #### [facility] [place] [id number] [address] [place] [address] [place] Platelet mean volume (Bld) [Entitic vol] 10.5 fL Normal 9.0-12.7 [facility] Comment on above: Order Comment: Speci men Type: BLOOD SPECIMEN Ordering Facility: [facility] Address: [address] [address] Performed By: #### 5 7021-8 #### [facility] [place] [id number] [address] [place] [address] [place] Platelets (Bld) [#/Vol] 264 10*3/uL Normal 150-400 [facility] Comment on above: Order Comment: Speci men Type: BLOOD SPECIMEN Ordering Facility: [facility] Address: [address] [place] [address] Performed By: #### 5 7021-8 #### [facility] IA [id number] [address] [place] [address] [place] RBC (Bld) [#/Vol] 4.95 10*6/uL Normal 3.90-5.20 [facility] Comment on above: Order Comment: Speci men Type: BLOOD SPECIMEN Ordering Facility: [facility] Address: [address] [place], [place] [address] Performed By: #### 5 7021-8 #### [facility] IA [id number] [address] [place] [address] [place] WBC (Bld) [#/Vol] 8.22 10*3/uL Normal 3.70-11.00 [facility] Comment on above: Order Comment: Speci men Type: BLOOD SPECIMEN Ordering Facility: [facility] Address: [address] Performed By: #### 5 7021-8 #### [facility] CLIA [id number] [address] [place] [address] [facility] Comprehensive metabolic 2000 panelon 05-25-2022 Albumin [Mass/Vol] 4.3 g/dL Normal 3.9-4.9 [facility] Comment on above: Order Comment: Speci men Type: BLOOD SPECIMEN Ordering Facility: [facility] Address: [address] Performed By: #### 2 4323-8, 3040-3, HCGED, 90930-1 #### [facility] CLIA [id number] [address] [place] [address] [place] ALP [Catalytic activity/Vol] 74 U/L Normal 34-123 [facility] Comment on above: Order Comment: Speci men Type: BLOOD SPECIMEN Ordering Facility: [facility] Address: [address] Performed By: #### 2 4323-8, 3040-3, HCGED, 59607-0 #### [facility] CLIA [id number] [address] [place] [address] [place] ALT [Catalytic activity/Vol] 23 U/L Normal 7-38 [facility] Comment on above: Order Comment: Speci men Type: BLOOD SPECIMEN Ordering Facility: [facility] Address: [address] Performed By: #### 2 4323-8, 3040-3, HCGED, 18729-7 #### [facility] CLIA [id number] [address] [place] [address] [place] Anion gap [Moles/Vol] 12 mmol/L Normal 9-18 [facility] Comment on above: Order Comment: Speci men Type: BLOOD SPECIMEN Ordering Facility: [facility] Address: [address] Performed By: #### 2 4323-8, 3040-3, HCGED, 17977-5 #### [facility] CLIA [id number] [address] [place] [address] [place] AST [Catalytic activity/Vol] 15 U/L Normal 13-35 [facility] Comment on above: Order Comment: Speci men Type: BLOOD SPECIMEN Ordering Facility: [facility] Address: [address] Performed By: #### 2 4323-8, 3040-3, HCGED, #### [facility] CLIA [id number] [address] [place] [address] [place] Bilirubin [Mass/Vol] 1.0 mg/dL Normal 0.2-1.3 [facility] Comment on above: Order Comment: Speci men Type: BLOOD SPECIMEN Ordering Facility: [facility] Address: [address] [place] [address] Performed By: #### 2 4323-8, 3040-3, HCGED, #### [facility] CLIA [id number] [address] [place] [address] [place] Calcium [Mass/Vol] 8.8 mg/dL Normal 8.5-10.2 [facility] Comment on above: Order Comment: Speci men Type: BLOOD SPECIMEN Ordering Facility: [facility] Address: [address] [place], [place] [address] Performed By: #### 2 4323-8, 3040-3, HCGED, #### [facility] CLIA [id number] [address] [facility] [place] [address] [place] Chloride [Moles/Vol] 107 mmol/L High 97-105 [facility] Comment on above: Order Comment: Speci men Type: BLOOD SPECIMEN Ordering Facility: [facility] Address: [address] Performed By: #### 2 4323-8, 3040-3, HCGED, 24730-2 #### [facility] CLIA [id number] [address] [facility] [place] [address] [place] CO2 [Moles/Vol] 22 mmol/L Normal 22-30 [facility] Comment on above: Order Comment: Speci men Type: BLOOD SPECIMEN Ordering Facility: [facility] Address: [address] [place] [address] Performed By: #### 2 4323-8, 3040-3, HCGED, #### [facility] CLIA [id number] [address] [place] [address] [place] Creatinine [Mass/Vol] 0.70 mg/dL Normal 0.58-0.96 [facility] Comment on above: Order Comment: Speci men Type: BLOOD SPECIMEN Ordering Facility: [facility] Address: [address] [place] [address] Performed By: #### 2 4323-8, 3040-3, HCGED, #### [facility] CLIA [id number] [address] [place] [address] [place] ESTIMATED GLOMERULAR FILTRATION RATE 123 mL/min/1.73m??? Normal >=60 [facility] Comment on above: Order Comment: Speci men Type: BLOOD SPECIMEN Ordering Facility: [facility] Address: [address] [place] [address] Result Comment: Hazel mated Glomerular Filtration Rate [...] By: #### 2 4323-8, 3040-3, HCGED, #### [facility] CLIA [id number] [address] [place] [address] [place] Glucose [Mass/Vol] 97 mg/dL Normal 74-99 [facility] Comment on above: Order Comment: Speci men Type: BLOOD SPECIMEN Ordering Facility: [facility] Address: [address] [id number] Result Comment: [employer] [place] [employer] [...] By: #### 2 4323-8, 3040-3, HCGED, #### [facility] CLIA [id number] [address] [place] [address] [place] Potassium [Moles/Vol] 3.9 mmol/L Normal 3.7-5.1 [facility] Comment on above: Order Comment: Speci men Type: BLOOD SPECIMEN Ordering Facility: [facility] Address: [address] [place] [address] Performed By: #### 2 4323-8, 3040-3, HCGED, #### [facility] CLIA [id number] [address] [place] [address] [place] Protein [Mass/Vol] 6.9 g/dL Normal 6.3-8.0 [facility] Comment on above: Order Comment: Speci men Type: BLOOD SPECIMEN Ordering Facility: [facility] Address: [address] [place], [place] [address] Performed By: #### 2 4323-8, 3040-3, HCGED, #### [facility] CLIA [id number] [address] [place] [address] [place] Sodium [Moles/Vol] 141 mmol/L Normal 136-144 [facility] Comment on above: Order Comment: Speci men Type: BLOOD SPECIMEN Ordering Facility: [facility] Address: [address] [place] [address] Performed By: #### 2 4323-8, 3040-3, HCGED, 12463-0 #### [facility] CLIA [id number] [address] [facility] [place] [address] [facility] Urea nitrogen [Mass/Vol] 13 mg/dL Normal 7-21 [facility] Comment on above: Order Comment: Speci men Type: BLOOD SPECIMEN Ordering Facility: [facility] Address: [address] [place] [address] Performed By: #### 2 4323-8, 3040-3, HCGED, 53185-3 #### [facility] CLIA [id number] [address] [place] [address] [facility] ECG COMPLETEon 05-25-2022 ECG COMPLETE Ventricular Rate : 9 1 BPM Atrial Rate : 92 BPM P-R Interval : 150 ms QRS Duration : 85 ms Q-T Interval : 341 ms QTC Calculation(Bazett) : 420 ms Calculated P [place] : 33 degrees Calculated R [place] : 21 degrees Calculated T [place] : 24 degrees Sinus rhythm Low voltage, precordial leads Otherwise Normal ECG *SEE EPIC NOTE FOR INTERPRETATION Confirmed by KHADAR LUNA MD ([id number]), art editor BE TORRES ([id number]) on 05/26/2022 1:50:52 PM NAME : JOVON LOPEZ PID : [id number] : 1995 Gender : Female Race : ORD : [id number] Procedure Date : May 24 2022 23:05:41 Edit Date : May 26 2022 13:50:57 Diagnosis: Sinus rhythm Low voltage, precordial leads Otherwise Normal ECG *SEE EPIC NOTE FOR INTERPRETATION Confirmed by KHADAR LUNA MD ([id number]), art editor BE TORRES ([id number]) on 05/26/2022 1:50:52 PM Test Reason : Chest Pain Location : 302 : ED AVED-16 Overread By : KHADAR LUNA MD Edited By : BE TORRES Referred By : , Acquired by : [id number], Normal [facility] ED NOTEon 05-25-2022 ED NOTE HNO ID: [id number] Author: Diamond Plata RN Service: Nursing Author [...] ED in no acute distress. DIAMOND PLATA [facility] [phone] Normal [facility] ED PROV NOTEon 05-25-2022 ED PROV NOTE HNO ID: [id number] Author: Khadar uLna DO Service: Emergency Medicine Author Type: Physician [...] which was unremarkable. She followed up with medical illustrator yesterday, was told that her symptoms may [...] Clinical Impr (more content not included)... Normal [facility] Lipase SerPl-cCncon 05-25-20 Lipase [Catalytic activity/Vol] 15 U/L Low 16-61 [facility] Comment on above: Order Comment: [facility] Type: BLOOD SPECIMEN Ordering Facility: [facility] Address: [address] [place], [place] [id number] Performed By: #### 2 4323-8, 3040-3, HCGED, #### [facility] CLIA [id number] [place] [address] [place] Magnesium SerPl-mCncon 05-25 Magnesium [Mass/Vol] 1.9 mg/dL Normal 1.7-2.3 [facility] Comment on above: Order Comment: [facility]ad [facility] Type: BLOOD SPECIMEN Ordering Facility: [facility] Address: [address] [id number] Performed By: #### 2 4323-8, 3040-3, HCGED, #### [facility] CLIA [id number] [facility] [place] [address] [place] Urinalysis complete panel (U )on 05-25-2022 Bilirubin Ql (U) Negative Normal Negative [facility] Comment on above: Order Comment: [facility] Type: URINE SPECIMEN Ordering Facility: [facility] Address: [address] Performed By: #### 2 4356-8 #### [facility] [id number] [address] [place] [address] [place] Clarity (Unsp spec) Clear Normal Clear [facility] Comment on above: Order Comment: Speci men Type: URINE SPECIMEN Ordering Facility: [facility] Address: [address] [address] Performed By: #### 2 4356-8 #### [facility] [id number] [place] [address] [place] Color (U) Yellow Normal Yellow [facility] Comment on above: Order Comment: Speci men Type: URINE SPECIMEN Ordering Facility: [facility] Address: [address] [address] Performed By: #### 2 4356-8 #### [facility] [id number] [address] [place] [address] [place] Epithelial cells LM.HPF (Urine sed) [#/Area] Few Normal [facility] Comment on above: Order Comment: Speci men Type: URINE SPECIMEN Ordering Facility: [facility] Address: [address] [address] Performed By: #### 2 4356-8 #### [facility] [id number] [address] [place] [address] [place] Glucose Test strip (U) [Mass/Vol] Negative Normal Negative [facility] Comment on above: Order Comment: Speci men Type: URINE SPECIMEN Ordering Facility: [facility] Address: [address] [address] Performed By: #### 2 4356-8 #### [facility] [id number] [address] [place] [address] [place] Hemoglobin Ql (U) Negative Normal Negative [facility] Comment on above: Order Comment: Speci men Type: URINE SPECIMEN Ordering Facility: [facility] Address: [address] [address] Performed By: #### 2 4356-8 #### [facility] [place] [id number] [place] [id number] [place] [address] OF [facility] Ketones Ql (U) 3+ Abnormal Trace, Negative [facility] Comment on above: Order Comment: Speci men Type: URINE SPECIMEN Ordering Facility: [facility] Address: [address] [address] Performed By: #### 2 4356-8 #### [facility] [place] [id number] [address] [place] [id number] [place] [address] [place] Leukocyte esterase Test strip Ql (U) 1+ Abnormal Negative [facility] Comment on above: Order Comment: Speci men Type: URINE SPECIMEN Ordering Facility: [facility] Address: [address] [address] Performed By: #### 2 4356-8 #### [facility] [place] [id number] [address] [place] [address] [place] Nitrite Ql (U) Negative Normal Negative [facility] Comment on above: Order Comment: Speci men Type: URINE SPECIMEN Ordering Facility: [facility] Address: [address] [place] [address] Performed By: #### 2 4356-8 #### [facility] [place] [id number] [address] [place] [address] [place] pH (U) 5.5 [pH] Normal 5.0-8.0 [facility] Comment on above: Order Comment: Speci men Type: URINE SPECIMEN Ordering Facility: [facility] Address: [address] [address] Performed By: #### 2 4356-8 #### [facility] [place] [id number] [address] [place], [place] [id number] [place] [facility] Protein (U) [Mass/Vol] Trace Normal Trace , Negative [facility] Comment on above: Order Comment: Speci men Type: URINE SPECIMEN Ordering Facility: [facility] Address: [address] [address] Performed By: #### 2 4356-8 #### [facility] [place] [id number] [address] [place] RBC LM.HPF (Urine sed) [#/Area] 0-3 /HPF Normal 0-3 /HPF [facility] Comment on above: Order Comment: Speci men Type: URINE SPECIMEN Ordering Facility: [facility] Address: [address] [place] [address] Performed By: #### 2 4356-8 #### [facility] [place] [id number] [place] [address] [place] Specific gravity (U) [Rel density] 1.026 Normal 1.005-1.030 [facility] Comment on above: Order Comment: Speci men Type: URINE SPECIMEN Ordering Facility: [facility] Address: [address] [place] [address] Performed By: #### 2 4356-8 #### [facility] [id number] [address] [place] [address] Urobilinogen Ql (U) 0.2 EU/dL Normal 0.2-1.0 EU/dL [facility] Comment on above: Order Comment: Speci men Type: URINE SPECIMEN Ordering Facility: [facility] Address: [address] [place] [address] Performed By: #### 2 4356-8 #### [facility] [place] [id number] [address] [place] [address] [place] WBC LM.HPF (Urine sed) [#/Area] 6-10 /HPF Abnormal 0-5 /HPF [facility] Comment on above: Order Comment: Speci men Type: URINE SPECIMEN Ordering Facility: [facility] Address: [address] [place] [address] Performed By: #### 2 4356-8 #### [facility] [place] [id number] [place] [address] [place] ED NOTEon 05-24-2022 ED NOTE HNO ID: [id number] Author: Gabby Barone, RN Service: ? Author Type: Registered Nurse Type: ED Notes Filed: 05/24/2022 9:23 PM Note Text: Patient presents with nausea, vomiting, diarrhea, and centralized abdominal pain for about 5 months. States she has lost about 45 pounds and is unable to eat or drink without pain. GABBY BARONE [facility] [phone] Normal [facility] Office Visiton 05-23-2022 Follow-up visit [id number] CooperJovon Len 1995 F Date Provider Department Center 05/23/2022 Kevan-GONZALEZ POWELL [facility] GI [facility] No family history on file Level of Service:48738 DC OFFICE/OUTPATIENT ESTABLISHED MOD MDM 30-39 MIN (GC) Reason for Visit and Comments: New Patient [632] Fatigue [46] - Had gallbladder removed in 03/2021, Dr. Powell found and fixed leak 04/2021, pt is having major problems with eating and drinking. Was referred back in 2020 Normal [facility] Automated erythrocytes count in urine sediment (number/area)Ordered By: Reggie Maynard on 05-17-2022 RBC Auto (Urine sed) [#/Area] 5-9 [HPF] 0-4 [facility] Automated leukocytes count i n urine sediment (number/area)Ordered By: Reggie Maynard on 05-17-2022 WBC Auto (Urine sed) [#/Area] 50-100 [HPF] 0-4 [facility] Basophils Auto (Bld) [#/Vol] Ordered By: Reggie Maynard on 05-17-2022 Basophils (Bld) [#/Vol] 0.1 10*3/uL 0.0-0.2 [facility] Basophils/100 WBC Auto (Bld) Ordered By: Reggie Maynard on 05-17-2022 Basophils/100 WBC (Bld) 0.7 % . [facility] Bilirubin Test strip Ql (U)O rdered By: Reggie Maynard on 05-17-2022 Bilirubin Ql (U) Negative Negative [facility] Body fluid albumin measureme nt (mass/volume)Ordered By: Reggie Maynard on 05-17-2022 Albumin (Body fld) [Mass/Vol] 3.8 g/dL 3.2-5.5 [facility] Color Auto (U)Ordered By: Hadley red Aleyda on 05-17-2022 Color (U) Yellow Yellow [facility] Creatinine and Glomerular fi ltration rate.predicted panel (S/P/Bld)Ordered By: Reggie Maynard on 05-17-2022 Creatinine [Mass/Vol] 0.64 mg/dL 0.44-1.03 [facility] Direct bilirubin measurement Ordered By: Reggie Maynard on 05-17-2022 Bilirubin.direct [Mass/Vol] 0.1 mg/dL 0.0-0.4 [facility] Eosinophils Auto (Bld) [#/Vo l]Ordered By: Reggie Maynard on 05-17-2022 Eosinophils (Bld) [#/Vol] 0.3 10*3/uL 0.0-0.45 [facility] Eosinophils/100 WBC Auto (Bl d)Ordered By: Reggie Maynard on 05-17-2022 Eosinophils/100 WBC (Bld) 4.2 % . [facility] Erythrocyte distribution wid th Auto (RBC) [Ratio]Ordered By: Reggie Maynard on 05-17-2022 Erythrocyte distribution width (RBC) [Ratio] 13.0 % 11.9-15.3 [facility] Estimated glomerular filtrat ion rate (GFR) non- AmericanOrdered By: Reggie Maynard on 05-17-2022 GFR/1.73 sq M.predicted among non-blacks MDRD (S/P/Bld) [Vol rate/Area] > 60 mL/Min [facility] Globulin Calc (S) [Mass/Vol] Ordered By: Reggie Maynard on 05-17-2022 Globulin (S) [Mass/Vol] 3.3 g/dL [facility] HCG ( test) IA.rapi d Ql (U)Ordered By: Reggie Maynard on 05-17-2022 HCG ( test) Ql (U) Negative [facility] Hematocrit Auto (Bld) [Volum e fraction]Ordered By: Reggie Maynard on 05-17-2022 Hematocrit (Bld) [Volume fraction] 42.9 % 34.0-46.4 [facility] Hemoglobin [Mass/volume] in BloodOrdered By: Reggie Maynard on 05-17-2022 Hemoglobin (Bld) [Mass/Vol] 14.5 g/dL 11.8-15.4 [facility] Ketones Auto test strip (U) [Mass/Vol]Ordered By: Reggie Maynard on 05-17-2022 Ketones (U) [Mass/Vol] Negative Negative [facility] - Chemistry and C hemistry - challengeOrdered By: Reggie Maynard on 05-17-2022 Lipase [Catalytic activity/Vol] 30.0 U/L 22-51 [facility] - UrinalysisOrder ed By: Reggie Maynard on 05-17-2022 Hyaline casts LM Ql (Urine sed) 0-8 [LPF] 0-8 [facility] Leukocytes [#/volume] correc gema for nucleated erythrocytes in Blood by Automated counOrdered By: Reggie Maynard on 05-17-2022 WBC corrected for nucl RBC Auto (Bld) [#/Vol] 7.0 10*3/uL 3.8-11.6 [facility] Lymphocytes Auto (Bld) [#/Vo l]Ordered By: Reggie Maynard on 05-17-2022 Lymphocytes (Bld) [#/Vol] 1.4 10*3/uL 1.00-4.8 [facility] Lymphocytes/100 WBC Auto (Bl d)Ordered By: Reggie Maynard on 05-17-2022 Lymphocytes/100 WBC (Bld) 20.4 % . [facility] MCH Auto (RBC) [Entitic mass ]Ordered By: Reggie Maynard on 05-17-2022 MCH (RBC) [Entitic mass] 29.6 pg 24.7-34.3 [facility] MCHC Auto (RBC) [Mass/Vol]Or dered By: Reggie Maynard on 05-17-2022 MCHC (RBC) [Mass/Vol] 33.7 g/dL 32.0-35.0 [facility] MCV Auto (RBC) [Entitic vol] Ordered By: Reggie Maynard on 05-17-2022 MCV (RBC) [Entitic vol] 87.9 fL 80-100 [facility] Monocyte distribution width [Entitic volume] in Blood by AutomatedOrdered By: Reggie Maynard on 05-17-2022 Monocyte distribution width Auto (Bld) [Entitic vol] 17.93 % 0.00-20.00 [facility] Monocytes Auto (Bld) [#/Vol] Ordered By: Reggie Maynard on 05-17-2022 Monocytes (Bld) [#/Vol] 0.3 10*3/uL 0.0-0.8 [facility] Monocytes/100 WBC Auto (Bld) Ordered By: Reggie Maynard on 05-17-2022 Monocytes/100 WBC (Bld) 4.1 % . [facility] Mucus LM Ql (Urine sed)Order ed By: Reggie Maynard on 05-17-2022 Mucus Ql (Urine sed) 2+ [LPF] [facility] Neutrophils Auto (Bld) [#/Vo l]Ordered By: Reggie Maynard on 05-17-2022 Neutrophils (Bld) [#/Vol] 4.9 10*3/uL 1.8-7.7 [facility] Neutrophils/100 WBC Auto (Bl d)Ordered By: Reggie Maynard on 05-17-2022 Neutrophils/100 WBC (Bld) 70.6 % . [facility] Nitrite Test strip Ql (U)Ord ered By: Reggie Maynard on 05-17-2022 Nitrite Ql (U) Negative Negative [facility] No Panel InformationOrdered By: Reggie Maynard on 05-17-2022 Estimated GFR () > 60 mL/Min [facility] Comment on above: GFR estimated refere nce range: According to KDOQI guidelines, <60 ml/min/1.73m2 is sufficient to diagnose a patient with chronic kidney disease. Pharmacy Creatinine Clearance (Chem 111.16 [facility] Nucleated erythrocytes [Pres ence] in Blood by Automated countOrdered By: Reggie Maynard on 05-17-2022 Nucleated RBC Auto Ql (Bld) 0.2 /100{WBC} 0-0.5 [facility] Platelet mean volume Auto (B ld) [Entitic vol]Ordered By: Reggie Maynard on 05-17-2022 Platelet mean volume (Bld) [Entitic vol] 8.7 fL 6.3-10.7 [facility] Platelets Auto (Bld) [#/Vol] Ordered By: Reggie Maynard on 05-17-2022 Platelets (Bld) [#/Vol] 323 10*3/uL 150-450 [facility] Protein Auto test strip (U) [Mass/Vol]Ordered By: Reggie Maynard on 05-17-2022 Protein (U) [Mass/Vol] Negative Negative [facility] Protein [Mass/volume] in Ser um or PlasmaOrdered By: Reggie Maynard on 05-17-2022 Protein [Mass/Vol] 7.1 g/dL 6.1-7.9 [facility] RBC Auto (Bld) [#/Vol]Ordere d By: Reggie Maynard on 05-17-2022 RBC (Bld) [#/Vol] 4.88 10*6/uL 3.60-5.00 [facility] Serum or plasma alanine rangel otransferase measurement without P-5'-P (enzymatic activiOrdered By: Reggie Maynard on 05-17-2022 ALT No additional P-5'-P [Catalytic activity/Vol] 22 U/L 10-60 [facility] Serum or plasma albumin/glob ulin mass ratioOrdered By: Reggie Maynard on 05-17-2022 Albumin/Globulin [Mass ratio] 1.2 {ratio} [facility] Serum or plasma alkaline ely sphatase measurement (enzymatic activity/volume)Ordered By: Reggie Maynard on 05-17-2022 ALP [Catalytic activity/Vol] 56 U/L 32-92 [facility] Serum or plasma anion gap de terminationOrdered By: Reggie Maynard on 05-17-2022 Anion gap [Moles/Vol] 14.6 mmol/L 6.0-15.0 [facility] Serum or plasma aspartate am inotransferase measurement (enzymatic activity/volume)Ordered By: Reggie Maynard on 05-17-2022 AST [Catalytic activity/Vol] 16 U/L 10-42 [facility] Serum or plasma calcium bryon urement (mass/volume)Ordered By: Reggie Maynard on 05-17-2022 Calcium [Mass/Vol] 8.9 mg/dL 8.2-10.2 [facility] Serum or plasma chloride jamir surement (moles/volume)Ordered By: Reggie Maynard on 05-17-2022 Chloride [Moles/Vol] 106 mmol/L 95-114 [facility] Serum or plasma glucose bryon urement (mass/volume)Ordered By: Reggie Maynard on 05-17-2022 Glucose [Mass/Vol] 94 mg/dL 70-100 [facility] Comment on above: ADA recommended refe rence rangeRandom Glucose Reference Range is dependent on time and content of last meal. Glucose of more than 200 mg/dL in a nonstressed, ambulatory subject supports the diagnosis of Diabetes Mellitus. Serum or plasma non-glucuron idated bilirubin measurement (mass/volume)Ordered By: Reggie Maynard on 05-17-2022 Bilirubin.indirect [Mass/Vol] 0.7 mg/dL [facility] Serum or plasma potassium me asurement (moles/volume)Ordered By: Reggie Maynard on 05-17-2022 Potassium [Moles/Vol] 4.3 mmol/L 3.5-5.1 [facility] Serum or plasma sodium measu rement (moles/volume)Ordered By: Reggie Maynard on 05-17-2022 Sodium [Moles/Vol] 138 mmol/L 136-146 [facility] Serum or plasma total biliru bin measurement (mass/volume)Ordered By: Reggie Maynard on 05-17-2022 Bilirubin [Mass/Vol] 0.8 mg/dL 0.3-1.2 [facility] Serum or plasma total carbon dioxide measurement (moles/volume)Ordered By: Reggie Maynard on 05-17-2022 CO2 [Moles/Vol] 21.7 mmol/L 22.0-30.0 [facility] Serum or plasma urea nitroge n measurement (mass/volume)Ordered By: Reggie Maynard on 05-17-2022 Urea nitrogen [Mass/Vol] 15 mg/dL 9-23 [facility] Specific gravity Auto test s trip (U) [Rel density]Ordered By: Reggie Maynard on 05-17-2022 Specific gravity (U) [Rel density] 1.028 1.001-1.030 [facility] Squamous epithelial cells de tection in urine sediment by light microscopyOrdered By: Reggie Maynard on 05-17-2022 Epithelial cells.squamous LM Ql (Urine sed) 3-4 [HPF] 0-2 [facility] Urine bacteria detection by automated methodOrdered By: Reggie Maynard on 05-17-2022 Bacteria Auto Ql (U) None seen None Seen [facility] Urine clarity by refractomet ry automatedOrdered By: Reggie Maynard on 05-17-2022 Clarity Refractometry automated (U) Clear Clear [facility] Urine glucose measurement by automated test strip (mass/volume)Ordered By: Reggie Maynard on 05-17-2022 Glucose Auto test strip (U) [Mass/Vol] Normal mg/dL Normal [facility] Urine hemoglobin detection b y automated test stripOrdered By: Reggie Maynard on 05-17-2022 Hemoglobin Auto test strip Ql (U) Negative Negative [facility] Urine leukocyte esterase det ection by automated test stripOrdered By: Reggie Maynard on 05-17-2022 Leukocyte esterase Auto test strip Ql (U) 3+ Negative [facility] Urine sediment renal epithel ial cell count by microscopy (number/high power field)Ordered By: Reggie Maynard on 05-17-2022 Epithelial cells.renal LM.HPF (Urine sed) [#/Area] None seen [HPF] 0-1 [facility] Urobilinogen Auto test strip (U) [Mass/Vol]Ordered By: Reggie Maynard on 05-17-2022 Urobilinogen (U) [Mass/Vol] Normal mg/dL Normal [facility] WBC Auto (Bld) [#/Vol]Ordere d By: Reggie Maynard on 05-17-2022 WBC (Bld) [#/Vol] 7.0 10*3/uL 3.8-11.6 [facility] pH Auto test strip (U)Ordere d By: Reggie Maynard on 05-17-2022 pH (U) 5.5 [pH] 5.0-9.0 [facility] AMYLASEon 05-01-2022 Amylase [Catalytic activity/Vol] 61 U/L Normal 25-[address] [facility] Comment on above: Performed By: #### L IPA, CMP, ROSS #### [facility] [address] [place] [address] Dr. Radha Garcia CBC AUTO DIFFon 05-01-2022 BASO # 0.0 103/ul Normal 0.0-0.[address] [facility] Comment on above: Performed By: #### C BC #### [facility] [address] [place] [address] Dr. Radha Garcia Basophils/100 WBC (Bld) 0.4 % Normal 0.2-2.[address] [facility] Comment on above: Performed By: #### C BC #### [facility] [address] [place] [address] Dr. Radha Garcia EO # 0.2 103/ul Normal 0.0-0.[address] [facility] Comment on above: Performed By: #### C BC #### [facility] [address] [place] [address] Dr. Radha Garcia Eosinophils/100 WBC (Bld) 3.0 % Normal 0.9-7.[address] [facility] Comment on above: Performed By: #### C BC #### [facility] [address] [place] [address] Dr. Radha Garcia Erythrocyte distribution width (RBC) [Ratio] 12.4 % Normal 11.0-15.[address] [facility] Comment on above: Performed By: #### C BC #### [facility] [address] [place] [address] Dr. Radha Garcia Hematocrit (Bld) [Volume fraction] 40.5 % Normal 36.0-48.[address] [facility] Comment on above: Performed By: #### C BC #### [facility] [address] [place] [address] Dr. Radha Garcia Hemoglobin (Bld) [Mass/Vol] 13.7 g/dL Normal 12.0-16.[address] [facility] Comment on above: Performed By: #### C BC #### [facility] [address] [place] [address] Dr. Radha Garcia IG # 0.01 10e3/ul Normal 0.00-0.[address] [facility] Comment on above: Performed By: #### C BC #### [facility] [address] [place] [address] Dr. Radha Garcia IG % 0.1 % Normal 0.0-0.[address] [facility] Comment on above: Performed By: #### C BC #### [facility] [address] [place] [address] Dr. Radha Garcia LYMPH # 2.1 103/ul Normal 1.2-3.[address] [facility] Comment on above: Performed By: #### C BC #### [facility] [address] [place] [address] Dr. Radha Garcia Lymphocytes/100 WBC (Bld) 30.7 % Normal 20.5-60.[address] [facility] Comment on above: Performed By: #### C BC #### [facility] [address] [place] [address] Dr. Radha Garcia MANUAL DIFF REQ NO Normal [facility] Comment on above: Performed By: #### C BC #### [facility] [address] [place] [address] Dr. Radha Garcia MCH (RBC) [Entitic mass] 29.9 pg Normal 26.7-34.[address] [facility] Comment on above: Performed By: #### C BC #### [facility] [address] [place] [address] Dr. Radha Garcia MCHC (RBC) [Mass/Vol] 33.8 g/dL Normal 29.9-35.[address] [facility] Comment on above: Performed By: #### C BC #### [facility] [address] [place] [address] Dr. Radha Garcia MCV (RBC) [Entitic vol] 88.4 fL Normal 81.0-99.[address] [facility] Comment on above: Performed By: #### C BC #### [facility] [address] [place] [address] Dr. Radha Garcia MONO # 0.5 103/ul Normal 0.3-0.[address] [facility] Comment on above: Performed By: #### C BC #### [facility] [address] [place] [address] Dr. Radha Garcia Monocytes/100 WBC (Bld) 6.6 % Normal 1.7-12.[address] [facility] Comment on above: Performed By: #### C BC #### [facility] [address] [place] [address] Dr. Radha Garcia NEUT # 4.1 103/ul Normal 1.4-6.[address] [facility] Comment on above: Performed By: #### C BC #### [facility] [address] [place] [address] Dr. Radha Garcia Neutrophils/100 WBC (Bld) 59.2 % Normal 43.0-75.[address] [facility] Comment on above: Performed By: #### C BC #### [facility] [address] [place] [address] Dr. Radha Garcia Platelet mean volume (Bld) [Entitic vol] 10.6 fL Normal 9.5-13.[address] [facility] Comment on above: Performed By: #### C BC #### [facility] [address] [place] [address] Dr. Radha Garcia PLT 263 103/ul Normal 150-[address] [facility] Comment on above: Performed By: #### C BC #### [facility] [address] [place] [address] Dr. Radha Garcia RBC 4.58 106/ul Normal 4.20-5.[address] [facility] Comment on above: Performed By: #### C BC #### [facility] [address] [place] [address] Dr. Radha Garcia WBC 6.9 103/ul Normal 4.0-11.[address] [facility] Comment on above: Performed By: #### C BC #### [facility] [address] [place] [address] ABD/PELV W CONon [...] by: RAFA KAPLAN Date: 2022-05-01 03:[address] [facility] LIPASEon 05-01-2022 Lipase [Catalytic activity/Vol] 63.0 U/L Critically low 73.0-393.[address] [facility] Comment on above: Performed By: #### L IPA CMP, ROSS #### [facility] [address] [place] [address] Dr. Radha Garcia PREG HCG QUALon 05-01-2022 , QUAL Negative Normal NEGATIVE [facility] [place] Comment on above: Performed By: #### C BC #### [facility] [address] [place] [address] Dr. Radha Garcia PROF 14(COMP METB)on 022 Albumin [Mass/Vol] 3.9 g/dL Normal 3.4-5.0 [facility] Comment on above: Performed By: #### L IPA CMP, ROSS #### [facility] [address] [place] [address] Dr. Radha Garcia Albumin/Globulin [Mass ratio] 1.2 {ratio} Normal [facility] Comment on above: Performed By: #### L IPA CMP, ROSS #### [facility] [address] [place] [address] Dr. Radha Garcia ALP [Catalytic activity/Vol] 73 U/L Normal 46-[address] [facility] Comment on above: Performed By: #### L IPA, CMP, ROSS #### [facility] [address] [address] [address] Radha Garcia ALT [Catalytic activity/Vol] 13 U/L Critically low 14-[address] [facility] Comment on above: Performed By: #### L IPA, CMP, ROSS #### [facility] [address] [address] [address] Radha Garcia Anion gap [Moles/Vol] 9.0 mmol/L Normal [facility] Comment on above: Performed By: #### L IPA, CMP, ROSS #### [facility] [address] [place] [address] Dr. Radha Garcia AST [Catalytic activity/Vol] 12 U/L Critically low 15-[address] [facility] Comment on above: Performed By: #### L IPA, CMP, ROSS #### [facility] [address] [place] [address] Dr. Radha Garcia Bilirubin [Mass/Vol] 0.6 mg/dL Normal 0.2-1.[address] [facility] Comment on above: Performed By: #### L IPA, CMP, ROSS #### [facility] [address] [place] [address] Dr. Radha Garcia Calcium [Mass/Vol] 8.7 mg/dL Normal 8.5-10.1 [facility] Comment on above: Performed By: #### L IPA, CMP, ROSS #### [facility] [address] [place] [address] Dr. Radha Garcia Chloride [Moles/Vol] 106 mmol/L Normal 98-107 [facility] Comment on above: Performed By: #### L IPA, CMP, ROSS #### [facility] [address] [place] [address] Dr. Radha Garcia CO2 [Moles/Vol] 26.4 mmol/L Normal 21.0-32.0 [facility] Comment on above: Performed By: #### L IPA, CMP, ROSS #### [facility] [address] [address] [address] Radha Garcia Creatinine [Mass/Vol] 0.71 mg/dL Normal 0.55-1.[address] [facility] Comment on above: Performed By: #### L IPA, CMP, ROSS #### [facility] [address] [address] [address] Radha Garcia EGFR-AF CYPRIOT >60 Normal >=60 [facility] Comment on above: Performed By: #### L IPA, CMP, ROSS #### [facility] [address] [address] [address] Radha Garcia EGFR-NON AF CYPRIOT >60 Normal >=[address] [facility] Comment on above: Performed By: #### L IPA, CMP, ROSS #### [facility] [address] [address] [address] Radha Garcia Globulin (S) [Mass/Vol] 3.3 g/dL Normal [facility] Comment on above: Performed By: #### L IPA, CMP, ROSS #### [facility] [address] [address] [address] Radha Garcia Glucose [Mass/Vol] 89 mg/dL Normal 74-106 [facility] Comment on above: Performed By: #### L IPA, CMP, ROSS #### [facility] [address] [address] [address] Radha Garcia Potassium [Moles/Vol] 3.4 mmol/L Critically low 3.5-5.[address] [facility] Comment on above: Performed By: #### L IPA, CMP, ROSS #### [facility] [address] [address] [address] Radha Garcia Protein [Mass/Vol] 7.2 g/dL Normal 6.4-8.[address] [facility] Comment on above: Performed By: #### L IPA, CMP, ROSS #### [facility] [address] [address] [address] Radha Garcia Sodium [Moles/Vol] 138 mmol/L Normal 136-[address] [facility] Comment on above: Performed By: #### L IPA, CMP, ROSS #### [facility] [address], [place] [address] Dr. Radha Garcia Urea nitrogen [Mass/Vol] 12.0 mg/dL Normal 7.0-18.[address] [facility] Comment on above: Performed By: #### L IPA, CMP, ROSS #### [facility] [address] [place], [place] [address] Dr. Radha Garcia Urea nitrogen/Creatinine [Mass ratio] 16.9 mg/mg Normal [facility] Comment on above: Performed By: #### L IPA, CMP, ROSS #### [facility] [address], [place] [address] Dr. Radha Garcia Q - DRUG TOX MONITORING CONFIRMATION,URINEon 05-23-2021 Amphetamines Negative Normal <500 [facility] Labeling Strategist Comment on above: Order Comment: [facility] performed at: [facility] [employer] [facility], [address] [place] [address], [address] [place] [address], [address] [place] [address], Microarray Analyst: Shamar Colunga MD [facility] Collection Date/Time: [facility] Results Received Date/Time: [facility] Reported Date/Time: FASTING: NO Performed By: #### 9 1486 #### [facility] [address] [place] [address] Barbiturates Negative Normal <300 [facility] Labeling Strategist Comment on above: Order Comment: [facility] performed at: [facility], [address] , [address] [place] [address], [address] [place] [address], Microarray Analyst: Shamar Colunga MD [facility] Date/Time: [facility] Results Received Date/Time: [facility] Reported Date/Time: FASTING: NO Performed By: #### 9 1486 #### [facility] [address] [place] [address] Benzodiazepines Negative Normal <100 [facility] Labeling Strategist Comment on above: Order Comment: [facility] performed at: [facility], [address] , [address] [place], [place], [address] [place] [address], Microarray Analyst: Shamar Colunga MD [facility] Date/Time: [facility] Results Received Date/Time: [facility] Reported Date/Time: FASTING: NO Performed By: #### 9 1486 #### [facility] [address] [place] [address] Cocaine Metabolite Negative Normal <150 [facility] Comment on above: Order Comment: [facility] performed at: [employer] [facility], [address] , [address] [place], [place], [address] [place] [address], Microarray Analyst: Shamar Colunga MD [facility] Date/Time: [facility] Results Received Date/Time: [facility] Reported Date/Time: FASTING: NO Performed By: #### 9 1486 #### [facility] [address] [place] [address] COMMENT SEE NOTE Normal [facility] Comment on above: Order Comment: [facility] performed at: [employer] [facility], [address] [facility], [address] [place], [place], [address] [place] [address], Microarray Analyst: Shamar Colunga MD [facility] Collection Date/Time: [facility] Results Received Date/Time: [facility] Reported Date/Time: FASTING: NO Result Comment: See Note 2 Note 1 This test was developed and its analytical performance characteristics have been determined by [employer]. It has not been cleared or approved [...] interpreting these drug results, please contact a [employer] Toxicology Specialist: [phone] ( [phone] M-F, 8am-6pm EST. Performed By: #### 9 [id number] #### [facility] [address] [place] [address] Marijuana Metabolite 73 ng/mL High <5 [facility] Specialist Comment on above: Order Comment: [facility] performed at: [employer] [facility], [address] [place] [address], [address] [place] [address], [phone], Microarray Analyst: Shamar Colunga MD [facility] Date/Time: [facility] Results Received Date/Time: [facility] Reported Date/Time: FASTING: NO Result Comment: See Note 1 Performed By: #### 9 [id number] #### [facility] [address] [place] [address] Marijuana Metabolite 20 Positive Abnormal <20 [facility] Specialist Comment on above: Order Comment: [facility] performed at: [employer] [facility], [address] [place] [address], [address] [place] [address], [address] [place] [address], Microarray Analyst: Shamar Colunga MD [facility] Date/Time: [facility] Results Received Date/Time: [facility] Reported Date/Time: FASTING: NO Performed By: #### 9 1486 #### [facility] Default [address] [place] [address] Methadone Metabolite Negative Normal <100 [facility] Specialist Comment on above: Order Comment: [facility] performed at: [employer] [facility], [address] [place] [address], [address] [place] [address], [address] [place] [address], Microarray Analyst: Shamar Colunga MD [facility] Date/Time: [facility] Results Received Date/Time: [facility] Reported Date/Time: FASTING: NO Performed By: #### 9 1486 #### [facility] Default [address] [place] [address] Opiates Negative Normal <100 [facility] Specialist Comment on above: Order Comment: [facility] performed at: [employer] [facility], [address] [place] [address], [address] [place] [address], [address] [place] [address], Microarray Analyst: Shamar Colunga MD [facility] Date/Time: [facility] Results Received Date/Time: [facility] Reported Date/Time: FASTING: NO Performed By: #### 9 1486 #### [facility] Default [address] [place] [address] Oxycodone Negative Normal <100 [facility] Specialist Comment on above: Order Comment: [facility] performed at: [employer] [facility], [address], [address] [place] [address], [address] [place] [address], Microarray Analyst: Shamar Colunga MD [facility] Date/Time: [facility] Results Received Date/Time: [facility] Reported Date/Time: FASTING: NO Performed By: #### 9 1486 #### [facility] Default [address] [place] [address] Phencyclidine Negative Normal <25 [facility] Specialist Comment on above: Order Comment: [facility] performed at: [employer] [facility], [address], [address] [place] [address], [address] [place] [address], Microarray Analyst: Shamar Colunga MD [facility] Date/Time: [facility] Results Received Date/Time: [facility] Reported Date/Time: FASTING: NO Performed By: #### 9 1486 #### [facility] Default [address] [place] [address] ERCPon 05-01-2021 ERCP [facility] Department of Radiology [address] [place] [id number] Patient Name: JOVON LOPEZ : 1995 [...] procedure. Electronically signed: Neris Guevara. Transcribed by: [email or web address], User Resident: Electronically Signed by: NREIS GUEVARA @ 05/03/2021 08:12 AM Normal [facility] Comment on above: Order Comment: Evalu ate Endoscopy Reporton Endoscopy Report MR#: [id number] [facility] Pt. Name: Jovon Lopez Surgery Date: 05/01/2021 Room #: M7A Date of : 1995 PROCEDURE NOTE ATTENDING: Gonzalez Powell M.D. MACHINE SPLITTER: Te Bacon MD. (Advanced Endoscopy Gastroenterology Fellow). [...] Bacon MD Date Trans: 05/01/2021 06:34 P/mmo [id number] Normal [facility] POC SARS COV2 ANTIGEN NEGATI VEon 05-01-2021 POC SARS COV2 ANTIGEN NEG Negative Normal NEGATIVE [facility] Comment on above: Result Comment: Nega [...] signs and symptoms consistent with COVID-19. The [employer] COVID-19 Ag Card is a lateral flow [...] Accreditation. Performed By: #### 3 1977 #### [facility] [address] [facility] [place] [address], [facility] POC URINE PREGNANCYon 2020 Beta HCG ( test) Ql (U) Negative Normal NEGATIVE [facility] Comment on above: Result Comment: Perf ormed in PACU Performed By: #### 8 [id number] #### [facility] [address] [place] [address], [facility] Hemoglobinon 02-14-2021 Hemoglobin (Bld) [Mass/Vol] 11.4 g/dL Low 11.9-15.1 [facility] Comment on above: Performed By: #### H GB #### [address] [place], [place] [id number] [employer]: Ilir Prasad MD HemoglobinOrdered By: Cherelle Mera on 02-14-2021 Hemoglobin.gastrointest inal spec 1 Ql (Stl) 11.4 g/dL Low 11.9 - 15.1 g/dL [facility] [employer] Phone: Interpretation and review of laboratory results Abnormal [facility] [employer] Phone: [facility] [employer] Phone: OPERATIVE REPORTon OPERATIVE REPORT [address] [id number] OPERATIVE REPORT PATIENT NAME: JOVON LOPEZ : 1995 MED REC NO: [id number] ROOM: [facility] ACCOUNT NO: [id number] ADMIT DATE: 02/12/2021 PROVIDER: Fernando Hooks MD DATE OF PROCEDURE: 02/13/2021 PREOPERATIVE DIAGNOSES: at term, failed induction of labor, and intolerance to labor with late decelerations and brief episodes of bradycardia. SURGICAL PROCEDURE: Primary section, low transverse uterine segment. ANESTHESIA: Spinal. ART CONSULTANT: Nash Mera. ESTIMATED BLOOD LOSS: 800 mL. [...] then a running imbricating interlocking fashion. A [id number]-[id number] suture was placed on the right lateral [...] good condition. FERNANDO HOOKS MD [id number] Doc#: [id number] CC: Nash Mera [facility] TYPE AND SCREENOrdered By: Rosie Hooks on 02-13-2021 ABO/Rh Positive [facility] Work Phone: Arm Band Number [id number] [facility] Work Phone: Expiration Date 02/16/2021,2359 [facility] Work Phone: [facility] Work Phone: Type + Screenon 02-13-2021 Type + Screen Sample Expiration 02/16/2021,2359 Arm Band Number [id number] ABO/Rh(D) A POSITIVE Antibody Screen NEGATIVE Normal [facility] Comment on above: Performed By: #### T YS #### [facility] [address] [place] [address] [employer]: Ilir Prasad MD CBC auto differentialOrdered By: Nash Mera on 02-12-2021 Absolute Eos # 0.11 [facility] Work Phone: Absolute Immature Granulocyte 0.05 [facility] Work Phone: Absolute Lymph # 1.67 [facility] Work Phone: Absolute [place] # 0.44 [facility] Work Phone: Basophils (Bld) [#/Vol] 10*3/uL [facility] Work Phone: Basophils/100 WBC (Bld) 0 % 0 - 2 % M [facility] Work Phone: Differential Type NOT REPORTED [facility] Work Phone: Eosinophils/100 WBC (Bld) 1 % 1 - 4 % [facility] [employer] Phone: Hematocrit (Bld) [Volume fraction] 33.3 % Low 36.3 - 47.1 % [facility] Work Phone: Hemoglobin.gastrointest inal spec 1 Ql (Stl) 10.7 g/dL Low 11.9 - 15.1 g/dL [facility] [employer] Work Phone: Immature granulocytes/100 WBC (Bld) 1 % High 0 [employer] Phone: Interpretation and review of laboratory results Abnormal [employer] Phone: Lymphocytes/100 WBC (Bld) 20 % Low 24 - 43 % [employer] Phone: MCH (RBC) [Entitic mass] 28.5 pg 25.2 - 33.5 pg [employer] Phone: MCHC (RBC) [Mass/Vol] 32.1 g/dL 28.4 - 34.8 g/dL [employer] Phone: MCV (RBC) [Entitic vol] 88.6 fL 82.6 - 102.9 fL [employer] Phone: Monocytes/100 WBC (Bld) 5 % 3 - 12 % [employer] Phone: NRBC Automated 0.0 0.0 per 100 WBC [employer] Phone: Platelet distribution width (Bld) [Ratio] 13.9 % 11.8 - 14.4 % [employer] Phone: Platelet Estimate NOT REPORTED [employer] Phone: Platelet mean volume (Bld) [Entitic vol] 11.5 fL 8.1 - 13.5 fL [employer] Phone: Platelets (Bld) [#/Vol] 229 10*3/uL [employer] Phone: RBC (Bld) [#/Vol] 3.76 10*6/uL Low 3.95 - 5.1 1 m/uL [employer] Phone: RBC (Bld) [#/Vol] NOT REPORTED [employer] Phone: Segmented neutrophils/100 WBC (Bld) 73 % High 36 - 65 % [employer] Phone: Segs Absolute 5.99 [facility] Work Phone: WBC (Bld) [#/Vol] 8.3 10*3/uL [facility] Work Phone: WBC (Bld) [#/Vol] NOT REPORTED [facility] Work Phone: [facility] [employer] Work Phone: CBC with Diffon 02-12-2021 Abs. Basophil <0.03 Normal 0.00-0.20 [facility] Comment on above: Performed By: #### C DP #### [address] [place], [place] [id number] [employer]: Ilir Prasad MD Abs.Imm.Granulocyte 0.05 k/uL Normal 0.00-0.30 [facility] Comment on above: Performed By: #### C DP #### [address] [place], [facility]83 [employer]: Ilir Prasad MD Abs.Neutrophil (Seg) 5.99 k/uL Normal 1.50-8.10 [facility] Comment on above: Performed By: #### C DP #### [address] [place] [address] [employer]: Ilir Prasad MD Basophils/100 WBC (Bld) 0 % Normal 0-2 M [facility] Comment on above: Performed By: #### C DP #### [address] [place] [address] [employer]: Ilir Prasad MD Eosinophils (Bld) [#/Vol] 0.11 10*3/uL Normal 0.00-0.44 [facility] Comment on above: Performed By: #### C DP #### [address] [place], [place] [id number] [employer]: Ilir Prasad MD Eosinophils/100 WBC (Bld) 1 % Normal 1-4 [facility] Comment on above: Performed By: #### C DP #### [facility] [address] [place], [place] [address] [employer]: Ilir Prasad MD Erythrocyte distribution width (RBC) [Ratio] 13.9 % Normal 11.8-14.4 [facility] Comment on above: Performed By: #### C DP #### [facility] [address] [place], [place] [address] [employer]: Ilir Prasad MD Hematocrit (Bld) [Volume fraction] 33.3 % Low 36.3-47.1 [facility] Comment on above: Performed By: #### C DP #### [address] [place] [address] [employer]: Ilir Prasad MD Hemoglobin (Bld) [Mass/Vol] 10.7 g/dL Low 11.9-15.1 [facility] Comment on above: Performed By: #### C DP #### [address] [place], [place] [address] [employer]: Ilir Prasad MD Immature granulocytes/100 WBC (Bld) 1 % High 0 [facility] Comment on above: Performed By: #### C DP #### [facility] [address] [place] [address] Dr. [place], [place] [address] [employer]: Ilir Prasad MD Lymphocytes (Bld) [#/Vol] 1.67 10*3/uL Normal 1.10-3.70 [facility] Comment on above: Performed By: #### C DP #### [facility] [address] [place] [address] Dr[address] [place], [facility]83 [employer]: Ilir Prasad MD Lymphocytes/100 WBC (Bld) 20 % Low 24-43 [facility] Comment on above: Performed By: #### C DP #### [facility] [address] [place] [id number] [employer]: Ilir Prasad MD MCH (RBC) [Entitic mass] 28.5 pg Normal 25.2-33.5 [facility] Comment on above: Performed By: #### C DP #### [facility] [address] [place] [facility]83 [employer]: Ilir Prasad MD MCHC (RBC) [Mass/Vol] 32.1 g/dL Normal 28.4-34.8 [facility] Comment on above: Performed By: #### C DP #### [address] [place] [facility]83 [employer]: Ilir Prasad MD MCV (RBC) [Entitic vol] 88.6 fL Normal 82.6-102.9 [facility] Comment on above: Performed By: #### C DP #### [address] [place], [facility]83 [employer]: Ilir Prasad MD Monocytes (Bld) [#/Vol] 0.44 10*3/uL Normal 0.10-1.20 [facility] Comment on above: Performed By: #### C DP #### [facility] [address] [place] [address] Dr[address] [place], [facility]83 [employer]: Ilir Prasad MD Monocytes/100 WBC (Bld) 5 % Normal 3-12 [facility] Comment on above: Performed By: #### C DP #### [facility] [address] [place], [facility]83 [employer]: Ilir Prasad MD Neutrophil (Seg) 73 % High 36-65 [facility] Comment on above: Performed By: #### C DP #### [facility] [address] [place], [facility]83 [employer]: Ilir Prasad MD NRBC Automated 0.0 per 100 WBC Normal 0.0 [facility] Comment on above: Performed By: #### C DP #### [facility] [address] [place], [facility]83 [employer]: Ilir Prasad MD Platelet mean volume (Bld) [Entitic vol] 11.5 fL Normal 8.1-13.5 [facility] Comment on above: Performed By: #### C DP #### [facility] [address] [place], [facility]83 [employer]: Ilir Prasad MD Platelets (Bld) [#/Vol] 229 10*3/uL Normal 138-453 [facility] Comment on above: Performed By: #### C DP #### [facility] [address] [place], [facility]83 [employer]: Ilir Prasad MD RBC (Bld) [#/Vol] 3.76 10*6/uL Low 3.95-5.11 [facility] Comment on above: Performed By: #### C DP #### [address] [place], [facility]83 [employer]: Ilir Prasad MD WBC (Bld) [#/Vol] 8.3 10*3/uL Normal 3.5-11.3 [facility] Comment on above: Performed By: #### C DP #### [address] [place], [facility]83 [employer]: Ilir Prasad MD Auto Diff Performed NOT REPORTED Normal [facility] Comment on above: Performed By: #### C DP #### [address] [place], [facility]83 [employer]: Ilir Prasad MD Platelet Estimate NOT REPORTED Normal [facility] Comment on above: Performed By: #### C DP #### [facility] [place] [address] [place], [facility]83 [employer]: Ilir Prasad MD RBC morphology finding Nom (Bld) NOT REPORTED Normal [facility] Comment on above: Performed By: #### C DP #### [facility] [address] [place] [address] [employer]: Ilir Prasad MD WBC Morphology NOT REPORTED Normal [facility] Comment on above: Performed By: #### C DP #### [facility] [address] [place] [address] [employer]: Ilir Prasad MD DRUG SCREEN MULTI URINEOrder [...] Work Phone: MDMA, Urine NOT REPORTED NEGATIVE [facility] Work Phone: Methadone Screen, Urine Negative NEGATIVE [facility] Work Phone: Methamphetamine, Urine Negative NEGATIVE [facility] Work Phone: Opiates, Urine Negative NEGATIVE [facility] Work Phone: Oxycodone Screen, Ur Negative NEGATIVE [facility] Work Phone: Phencyclidine, Urine Negative NEGATIVE [facility] Work Phone: Propoxyphene, Urine Negative NEGATIVE [facility] Work Phone: Test Information NOT REPORTED [facility] Work Phone: Tricyclic Antidepressants, Urine Negative NEGATIVE [facility] Work Phone: Comment on above: Drug screen results are to be used for medical purposes only. All positive results are unconfirmed. Testing for employment or legal uses should be sent to a reference laboratory for confirmation. [facility] Work Phone: Drug Scr, Abuse, Uron 2020 Amphetamine(s),Ur Negative Normal NEG [facility] Comment on above: Performed By: #### D AU #### [facility] [address] [place] [address] [place] [place], [place] [phone] [employer]: Ilir Prasad MD Barbiturate(s),Ur Negative Normal NEG [facility] Comment on above: Performed By: #### D AU #### [address] [place], [place] [id number] [employer]: Ilir Prasad MD Benzodiazepine(s) Negative Normal NEG [facility] Comment on above: Performed By: #### D AU #### [facility] [address] [place] [address] [place] [address] [employer]: Ilir Prasad MD Buprenorphrine, Ur Negative Normal [facility] Comment on above: Performed By: #### D AU #### [facility] [address] [place] [address] [place] [address] [employer]: Ilir Prasad MD Cannabinoid(s),Ur Negative Normal NEG [facility] Comment on above: Performed By: #### D AU #### [facility] [address] [place] [address] [place] [address] [employer]: Ilir Prasad MD Cocaine Metabolite Negative Normal NEG [facility] Comment on above: Performed By: #### D AU #### [facility] [address] [place] [address] [address] [place], [place] [phone] Project [employer]: Ilir Prasad MD Methadone Ql (U) Negative Normal NEG [facility] Comment on above: Performed By: #### D AU #### [facility] [address] [place], [place] [phone] Project Manager [employer]: Ilir Prasad MD Methamphetamine, Ur Negative Normal NEG [facility] Comment on above: Performed By: #### D AU #### [facility] [address] [place], [place] [phone] Project [employer]: Ilir Prasad MD Opiate(s), Ur Negative Normal NEG [facility] Comment on above: Performed By: #### D AU #### [facility] [address] [place], [place] [phone] Project [employer]: Ilir Prasad MD Oxycodone, Urine Negative Normal NEG [facility] Comment on above: Performed By: #### D AU #### [facility] [address] [place], [place] [phone] Project [employer]: Ilir Prasad MD Phencyclidine, Ur Negative Normal NEG [facility] Comment on above: Performed By: #### D AU #### [facility] [address] [place], [place] [phone] Project Manager [employer]: Ilir Prasad MD Propoxyphene,Urine Negative Normal NEG [facility] Comment on above: Performed By: #### D AU #### [facility] [address] [place], [place] [phone] Project Manager [employer]: Ilir Prasad MD Tricyclic antidepressants Screen Ql (U) Negative Normal [facility] Comment on above: Result Comment: Drug screen results are to be used for medical purposes only. All positive results are unconfirmed. Testing for employment or legal uses should be sent to a reference laboratory for confirmation. Performed By: #### D AU #### [facility] [address] [place], [place] [phone] Project [employer]: Ilir Prasad MD Interpretive Info NOT REPORTED [facility] Comment on above: Performed By: #### D AU #### [facility] [address] [place] [address] Project Manager [employer]: Ilir Prasad MD MDMA, Urine NOT REPORTED Normal NEG [facility] Comment on above: Performed By: #### D AU #### [facility] [address] [place] [address] Project Manager [employer]: Ilir Prasad MD GBS, External ResultOrdered By: Historical Provider on 01-29-2021 GBS, External Result Negative [facility] [employer] [facility]: ABO, External ResultOrdered By: Historical Provider on 08-15-2020 ABO, External Result A [employer] Phone: HIV, External ResultOrdered By: Historical Provider on 08-15-2020 HIV, External Result Non-Reactive [employer] Phone: Hepatitis B, External Result Ordered By: Historical Provider on 08-15-2020 Hep B, External Result Negative [employer] Phone: No Panel InformationOrdered By: Historical Provider on 08-15-2020 [employer] Phone: PROFILE IOrdered By : Historical Provider on 08-15-2020 ABO/Rh Positive [employer] Phone: Rh Factor, External ResultOr dered By: Historical Provider on 08-15-2020 Rh Factor, External Result Positive [employer] Phone: Hepatitis C Antibody, Global Regulatory Lead al ResultOrdered By: Historical Provider on 07-26-2020 Hepatitis C Antibody, External Result Negative [employer] Phone: No Panel InformationOrdered By: Historical Provider on 07-26-2020 [employer] Phone: RPR, External LabOrdered By: Historical Provider on 07-26-2020 RPR, External Result Non-Reactive [employer] Phone: Vag Pathogens DNAon 08-22-19 19 Hazel vag DNA Probe Positive Critically abnormal Negative for Gardnerella vaginalis by DNA Probe [facility] Comment on above: Result Comment: This is suggestive, but not diagnostic of bacterial vaginosis, results should be interpreted in conjunction with other data such as pH, amine odor, clue cells and vaginal discharge characteristics. Performed By: #### V AGDNA #### [facility] [address] [place] [address] Protein mass conc Negative Normal Negative f or Lucía species by DNA Probe [facility] Comment on above: Performed By: #### V AGDNA #### [facility] [address] [place] [phone] Trich vag DNA Probe Negative Normal Negative for Trichomonas vaginalis by DNA Probe [facility] Comment on above: Performed By: #### V AGDNA #### [facility] [address] [place] [phone] CNOVon 08-20-2018 CNOV Office Visit ([facility] ) JOVON LOPEZ ([id number]) 1995 F CHT Date Time Provider Department 08/20/18 2:00 PM BRIGITTE MAIN (GILMER) GISELLA During your visit today, we recorded the following information about you: Blood pressure Weight Height Last Period 110/70 60.3 kg 1.575 m 07/20/18 Kaycee Horvath MA 08/20/2018 2:17 PM Signed Agronomy Advisor offered: Patient declines. Brigitte Main APRN.CNP 08/20/2018 [...] external genitalia normal, normal Bartholin's glands, urethra, La Liga's glands, no vulvar lesions, no cervical lesions, good vaginal support, normal appearing perineal body and perianal region, moderate amount yellow discharge noted BIMANUAL: uterus normal size, shape and consistency, no adnexal masses and non-tender RECTOVAGINAL: deferred. 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 [50] Cmt: Vaginal pain and discharge [...] test, unconfirmed [Z32.00] Order(s):PAP FLUID CERVICAL SCREENING [1087306] Order #: [id number] VAGINAL PATHOGENS DNA PROBES [SQVAGDNA] Order #: [id number] GC/CHLAMYDIA DNA DET [SQGCCAMP] Order #: [id number] TSH BLD [SQTSH] Order #: [id number] PROLACTIN BLD [SQPROL] Order #: [id number] TESTOSTERONE, FREE AND TOTAL [SQFTESTO] Order #: [id number] HGB A1C [OOYUN8P] Order #: [id number] DHEA-S BLD [SQDHEAS] Order #: [id number] FSH BLD [SQFSH] Order #: [id number] INSERT INTRAUTERINE DEVICE [[id number]] Order #: [id number] HCG QUAL UR B/O [[id number]] Order #: [id number] Prescriptions as of 08/20/2018 Sig: HYDROCODONE 5 MG-ACETAMINOPHE* Take 1 tablet by mouth every * Problem List As Of Date: 08/20/2018 (None) Visit Notes: >> Kaycee Horvath MA ThuAug 20, 2018 2:11 PM Status: Signed Agronomy Advisor offered: Patient declines. >> Kaycee Horvath MA ThuAug 20, 2018 4:38 PM Status: Signed Negative upt. Encounter Status:Closed by BRIGITTE MAIN CNP on 08/20/[address] [facility] CYTOLOGYon 08-20-2018 CYTOLOGY Specimen originated from [facility] Specimen #: [id number] Submitting Physician: BRIGITTE YOUNG CNP SPECIMEN SUBMITTED [...] from every slide are reviewed by a actuarial clerk. RAYNE Covington(ASCP) (Electronic Signature) ____ CLINICAL DATA ROUTINE EXAM, HPV Testing: Yes, Reflex HPV for ASCUS Date of Last Menstrual Period: 07/20/2018 STAINS A: CERVICAL, SCREENING, FLUID THIN PREP OPERATING ROOM TECHNOLOGIST Brigitte Echavarria M.D., Tour Guide Date of Report: 08/25/2018 Date of Procedure: 08/20/2018 Date of Receipt: 08/23/2018 Submitted by: BRIGITTE YOUNG CNP Location: [facility] Diagnostic interpretation performed at [facility], [address] [place], [place] [address]. CLIA Number: [id number] The Pap Smear is a screening test for cervical cancer. False negative results occur with all screening tests, emphasizing the need for rescreening at recommended intervals, and clinical correlation. Normal [facility] GC/Chlamydia Amplifon 2018 Chlamydia Amplif Positive Critically abnormal [facility] Comment on above: Result Comment: In l ow prevalence populations, the likelihood of a false positive may be higher than a true positive. Retesting by another method may be appropriate for patients who lack risk factors or clinical signs and symptoms consistent with infection. Performed By: #### G CCT #### [place] [address] GC Amplification Negative Normal [facility] Comment on above: Performed By: #### G CCT #### [place] [address] GC/Chlam Amp Source Cervix Normal [facility] Comment on above: Performed By: #### G CCT #### [place] [address] PROGRESSon 08-20-2018 Protein mass conc HNO ID: [id number] Author: Brigitte SolimanData Processing Systems Consultant) Qing Service: ? Author Type: Nurse Practitioner Type: [...] external genitalia normal, normal Bartholin's glands, urethra, La Liga's glands, no vulvar lesions, no cervical lesions, good vaginal support, normal appearing perineal body and perianal region, moderate amount yellow discharge noted BIMANUAL: uterus normal size, shape and consistency, no adnexal masses and non-tender RECTOVAGINAL: deferred. NEURO: alert and oriented x3 and alert and oriented x3,exam grossly non-focal EXTREMITIES: normal ASSESSMENT: Normal OPERATING ROOM TECHNOLOGIST exam Breast cancer screening Menorrhagia with irreg [...] for insertion pending ins coverage Brigitte Main APRN.TRADEMARK ATTORNEY Normal [facility] Vital Signs Date Time Vital Sign Value Performing Clinician Facility 12-07-2024 12:47-0400 Body mass index (BMI) [Ratio] 25.24 kg/m2 Khadra Campos [facility] Work Phone: [facility] 12-07-2024 12:47-0400 Body weight 62.6 kg Khadra Campos PMHNP-BC Work Phone: [facility] 12-07-2024 12:47-0400 Diastolic blood pressure 66 mm[Hg] Khadra Campos PMHNP-BC Work Phone: [facility] 12-07-2024 12:47-0400 Heart rate 78 /min Khadra Campos PMHNP-BC Work Phone: [facility] 12-07-2024 12:47-0400 Systolic blood pressure 104 mm[Hg] Khadra Campos PMHNP-BC Work Phone: [facility] 09-08-2024 13:59-0400 Body mass index (BMI) [Ratio] 26.7 kg/m2 Nash Floro CNM Work Phone: [facility] 09-08-2024 13:59-0400 Body weight 66.22 kg Nash Floro CNM Work Phone: [facility] 09-08-2024 13:59-0400 Diastolic blood pressure 70 mm[Hg] Nash Floro CNM Work Phone: [facility] 09-08-2024 13:59-0400 Systolic blood pressure 110 mm[Hg] Nash Floro CNM Work Phone: [facility] 03-01-2024 15:46-0400 Body mass index (BMI) [Ratio] 25.61 kg/m2 Nash Floro CNM Work Phone: [facility] 03-01-2024 15:46-0400 Body weight 63.5 kg Nash Floro CNM Work Phone: [facility] 03-01-2024 15:46-0400 Diastolic blood pressure 70 mm[Hg] Nash Floro CNM Work Phone: [facility] 03-01-2024 15:46-0400 Systolic blood pressure 110 mm[Hg] Nash Floro CNM Work Phone: [facility] 06-30-2023 10:20-0500 Body height 157.48 cm Luis Leung Other [employer] Other 06-30-2023 10:20-0500 Body mass index (BMI) [Ratio] 22.49 kg/m2 Luis Leung Other [employer] Other 06-30-2023 10:20-0500 Body weight 55.79 kg Luis Leung Other [employer] Other 06-30-2023 10:20-0500 Diastolic blood pressure 65 mm[Hg] Luis Leung Other [employer] Other 06-30-2023 10:20-0500 Systolic blood pressure 115 mm[Hg] Luis Leung Other [employer] Other 05-17-2022 15:15-0500 Diastolic blood pressure 59 mm[Hg] PHYSICIAN NO [facility] 05-17-2022 15:15-0500 Heart rate 67 /min PHYSICIAN NO [facility] 05-17-2022 15:15-0500 Respiratory rate 15 /min PHYSICIAN NO [facility] 05-17-2022 15:15-0500 SaO2% (BldA) [Mass fraction] 99 % PHYSICIAN NO [facility] 05-17-2022 15:15-0500 Systolic blood pressure 111 mm[Hg] PHYSICIAN NO [facility] 05-17-2022 11:45-0500 Body height 160.02 cm PHYSICIAN NO [facility] 05-17-2022 11:45-0500 Body temperature 98 [degF] PHYSICIAN NO [facility] 05-17-2022 11:45-0500 Body weight 58 kg PHYSICIAN NO [facility] 02-15-2021 07:23-0400 Body temperature 98.1 [degF] Nash Mera APRN - CNM Work Phone: [employer] Work Phone: 02-15-2021 07:23-0400 Diastolic blood pressure 59 mm[Hg] Nash Mera APRN - CNM Work Phone: [employer] Work Phone: 02-15-2021 07:23-0400 Heart rate 71 /min Nash Mera APRN - CNM Work Phone: [employer] Work Phone: 02-15-2021 07:23-0400 Respiratory rate 16 /min Nash Mera APRN - CNM Work Phone: [employer] Work Phone: 02-15-2021 07:23-0400 Systolic blood pressure 98 mm[Hg] Nash Mera APRN - CNM Work Phone: [employer] Work Phone: 02-13-2021 20:25-0400 SaO2% (BldA) [Mass fraction] 97 % Nash Mera APRN - CNM Work Phone: [employer] Work Phone: 02-12-2021 15:50-0400 Body height 157.5 cm Nash Mera APRN - CNM Work Phone: [employer] Work Phone: 02-12-2021 15:50-0400 Body mass index (BMI) [Ratio] 33.29 kg/m2 Nash Mera APRN - CNM Work Phone: [employer] Work Phone: 02-12-2021 15:50-0400 Body weight 82.56 kg Nash Mera APRN - CNM Work Phone: [employer] Work Phone: Encounters Encounter Date Encounter Type Care Provider Facility Start: 12-07-2024 End: 12-07-2024 Bamboo flowsheet Khadra Campos [facility] Work Phone: [facility] Start: 12-07-2024 End: 12-07-2024 Bamboo flowsheet Khadra Campos [facility] Work Phone: [facility] Start: 12-07-2024 End: 12-07-2024 ambulatory KHADRA CAMPOS Not Available Start: 11-21-2024 End: 11-21-2024 ambulatory PETERSON OLIVARESI Not Available Start: 11-21-2024 End: 11-21-2024 Bamboo flowsheet Peterson Malicki EARTH AUGER OPERATOR [facility] Start: 11-21-2024 End: 11-21-2024 Bamboo flowsheet Peterson Malicki EARTH AUGER OPERATOR [facility] Start: 10-12-2024 End: 10-12-2024 Bamboo flowsheet Peterson Malicki EARTH AUGER OPERATOR [facility] Start: 10-12-2024 End: 10-12-2024 Bamboo flowsheet Peterson Malicki EARTH AUGER OPERATOR [facility] Start: 10-12-2024 End: 10-12-2024 ambulatory PETERSON MALICKI Not Available Start: 09-08-2024 End: 09-08-2024 Bamboo flowsheet Nash L Floro CNM Work Phone: [facility] Start: 09-08-2024 End: 09-08-2024 Bamboo flowsheet Nash L Floro CNM Work Phone: [facility] Start: 09-08-2024 End: 09-08-2024 Office outpatient visit 15 minutes Nash L Floro CNM Work Phone: [facility] Comment on above: Difficulty controlli ng anger; Anxiety, generalized (CMS/HCC); Situational stress Start: 09-08-2024 End: 09-08-2024 ambulatory NASH L FLORO Not Available Start: 03-02-2024 End: 03-02-2024 Telephone encounter Nash L Floro CNM Work Phone: [facility] Start: 03-01-2024 End: 03-01-2024 ambulatory NASH L FLORO Not Available Start: 03-01-2024 End: 03-01-2024 Office outpatient visit 15 minutes Nash L Floro CNM Work Phone: [facility] Comment on above: Post depressi on (CMS/HCC) (Primary Dx); Vaginal discharge Start: 02-26-2024 End: 02-26-2024 Telephone encounter Nash L Floro CNM Work Phone: [facility] Start: 02-05-2024 End: 02-05-2024 Telephone encounter Nash L Floro CNM Work Phone: [facility] Start: 12-30-2023 End: 12-30-2023 ambulatory NASH L FLORO Not Available Start: 12-15-2023 End: 12-15-2023 ambulatory NASH L FLORO Not Available Start: 06-30-2023 End: 06-30-2023 ambulatory Luis Leung Other [employer] Other Start: 06-30-2023 Office outpatient visit 15 minutes Luis Leung [facility] Start: 06-30-2023 Telephone encounter Luis Crew[facility] Start: 04-21-2023 End: 04-21-2023 Emergency department patient visit PHYSICIAN MELISSA [facility] Facility:[facility] Start: 10-19-2022 End: 10-19-2022 ambulatory NONE LISTED REQUEST Facility: Start: 05-26-2022 ambulatory Alize Jefferson RN NURS [facility] Comment on above: Muscle Aches Start: 05-24-2022 End: 05-25-2022 Emergency department patient visit IKE HASTINGS Facility:[facility] Start: 05-23-2022 End: 05-23-2022 ambulatory GONZALEZ POWELL [facility] Start: 05-17-2022 End: 05-17-2022 Emergency department patient visit PHYSICIAN NO FAMILY [facility] Start: 05-01-2022 End: 05-01-[address] NONE LISTED REQUEST Facility: Start: 05-01-2021 End: 05-02-2021 ambulatory REFERRED SELF Facility:[facility] Start: 02-12-2021 End: 02-15-2021 Evaluation and management of inpatient NASH MERA [facility] Start: 02-12-2021 End: 02-15-2021 Evaluation and management of inpatient Nash Mera APRN - CN Work Phone: [facility] Labor and Delivery Comment on above: S/P primary low arredondo sverse (Primary Dx) Start: 08-20-2018 End: 08-23-2018 Patient encounter procedure BRIGITTE BA [facility] Luis Procedures Date Procedure Procedure Detail Performing Clinician Start: 12-07-2024 End: 12-07-2024 Psychiatric diagnostic eval w/medical services Severe episode of recurrent major depressive disorder, without psychotic features (HCC) Khadra Campos [facility] Work Phone: Comment on above: Severe episode of re current major depressive disorder, without psychotic features (HCC); AYDIN (generalized anxiety disorder) ; PTSD (post-traumatic stress disorder) ; Marijuana user Start: 11-21-2024 End: 11-21-2024 Psychotherapy w/patient 60 minutes Difficulty controlling anger Peterson Malicki EARTH AUGER OPERATOR Comment on above: Difficulty controlli ng anger; Anxiety, generalized ; Situational stress Start: 10-12-2024 End: 10-12-2024 Psychiatric diagnostic evaluation Difficulty controlling anger Peterson Malicki EARTH AUGER OPERATOR Comment on above: Difficulty controlli ng anger; Anxiety, generalized ([facility]/HCC); Situational stress Start: 03-01-2024 SURESWAB(R) ADVANCED VAGINITIS PLUS, TMA Nash Mera CNM Work Phone: Start: 02-14-2021 Blood count hemoglobin Nash Mera APRN - CNM Work Phone: Start: 02-13-2021 Antibody screen Nash Mera HUMAN RESOURCES SERVICES SPECIALIST - CNM Work Phone: Start: 02-13-2021 Blood typing serolog ic abo Fernando Hooks MD Work Phone: Start: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 04/2021, pt is having major problems with eating and drinking. Was referred back in 2020 HISTORY OF PRESENT ILLNESS: Jovon Lopez is a 27 y.o. female with history laparoscopic cholecystectomy on 03/25/2021 at [facility] (in setting of cholecystitis) complicated by biliary leak status post biliary stent on 03/28/2021 and transferred back to [place]. While there, she had worsening abdominal pain [...] cholangiogram. Biliary sphincterotomy was performed. A 10 Togolese X 9 cm plastic biliary stent was [...] normal bowel sounds, soft, (more content not included)...[facility]11-01-2021 History general Narrative - Reported* Type Description Date Surgical History C section Surgical History cholecystectomy 04/2021 [employer] [facility] 09-10-2021 History of Present illness Narrative* [...] I did review with her that the cosmetic consultant can review pump usage with her [...] C) 68 18 02/13/21 2056 111/75 68 02/13/21 2041 104/66 75 02/13/212026 100/60 70 02/13/212024 97 % 02/13/212014 109/73 97.8 F (36.6 C) 78 16 94 % 02/13/211999 107/72 76 16 96 % 02/13/211954 108/68 70 16 96 % 02/13/21 1940 112/70 78 16 95 % 02/13/211934 (!) [...] - CNM - 02/13/2021 7:35 PM EDT Printer Slotter Helper Note: mortgage loan assistant/rn surgical primary section with Dr Hooks Closed SQ layer and also closed skin incision. All edges approximated, no bleeding or drainage noted. oil processing technician places sterile dressing over incision. Patient [...] 02/13/2021 5:15 PM EDT Surgery notified that tumbler operator and recovery nurse needed for impending . [facility] Phone: 1(607) 614-759209-10-2021 Hospital Discharge instructions* Instructions* Lila Mcintosh RN - 02/15/2021 Follow-up with your OB doctor as specified. [facility] OB Department phone: Dr. Neva Smith [facility] Dr. Brittani Espinoza [facility] [address] [facility] [address] [place] Lani Mera, MSN, HUMAN RESOURCES SERVICES SPECIALIST, CNM [address] [address] DIET Eat a well balanced diet focusing on foods high in fiber and protein. Drink plenty of fluids especially water. To avoid constipation you may take a mild stool softener as recommended by your doctor or back filler operator. ACTIVITY Gradually increase your activity. Resume exercise regimen only after advice by your doctor or back filler operator. Avoid lifting anything heavier than a gallon of milk for SIX weeks. Avoid driving until your doctor or back filler operator has given their approval. Rise slowly from [...] medications as recommended by your doctor or back filler operator for pain If you develop a warm, [...] vitamins as directed by your doctor or back filler operator. Refer to the booklet in the folder/binder for more information. If you feel you need more assistance or have questions, please call Loreta Reyes IBCLC, cosmetic consultant, at or the OB department to [...] area in your calf. documented in this [facility] Work Phone: [phone]) 791-394509-10-2021 Hospital course Narrative* Kyra Smith APRN - [...] for: HEPBSAG HIV: No results found for: [id number] Results for orders placed or performed during [...] # 1.67 1.10 - 3.70 k/uL Absolute [place] # 0.44 0.10 - 1.20 k/uL Absolute [...] Range Expiration Date 02/16/2021,2359 Arm Band Number [id number] ABO/Rh A POSITIVE Antibody Screen NEGATIVE complications: none Discharge Medication: Jovon Lopez Bannister Medication Instructions [place]:[id number] Printed on:02/15/21 1002 Medication Information docusate sodium [...] and post depression check documented in this encounterIntransa Phone: evaluation note* Diagnosis S/P primary low transverse - Primary delivery, without mention of indication, unspecified as to episode of care Encounter for induction of labor Term intolerance to labor, delivered, current hospitalization Abnormality in heart rate/rhythm, delivered, with or without mention of antepartum condition documented in this encounter [facility] Phone: evaluation noteNo assessment information available [facility] Work Phone: Evaluation noteNo InformationNort ToughSurgery Other Evaluation note* Diagnosis Post depression (CMS/HCC)- Primary Mental disorders of mother, complicating , childbirth, or the puerperium, unspecified as to episode of care Vaginal discharge Leukorrhea, not specified as infective documented in this encounter [facility] HealthcareEvaluation note* Diagnosis Difficulty controlling anger Anxiety, generalized (CMS/HCC) Situational stress Other psychological or physical stress, not elsewhere classified documented in this encounter [facility] HealthcareEvaluation note* Diagnosis Difficulty controlling anger Anxiety, generalized (CMS/HCC) Situational stress Other psychological or physical stress, not elsewhere classified documented in this encounter [facility] HealthcareEvaluation note* Diagnosis Difficulty controlling anger Anxiety, generalized Situational stress Other psychological or physical stress, not elsewhere classified documented in this encounter [facility] HealthcareEvaluation note* Diagnosis Severe episode of recurrent major depressive disorder, without psychotic features (HCC) AYDIN (generalized anxiety disorder) Generalized anxiety disorder PTSD (post-traumatic stress disorder) Posttraumatic stress disorder Marijuana user documented in this encounter [facility] HealthcareHospital Discharge instructions Additional Instructions Follow-up with GI doctor provided Return to the ED if develop worsening symptoms or concerns take the new medications as prescribed, use pepto bismol, tums as needed avoid any spicy foods, fatty foods and avoid alcoholJ[facility]. [facility] Work Phone: Summary Purpose [...] section and content) DATE CREATED AUTHOR 08/25/2018 [facility] DATE CREATED AUTHOR AUTHOR'S JACOB BARKER 02/16/2021 [facility] DATE CREATED AUTHOR AUTHOR'S ORGANIZ ATION 05/21/[address] [facility] DATE CREATED AUTHOR AUTHOR'S ORGANIZ ATION 05/27/2021 [facility] DATE CREATED AUTHOR AUTHOR'S ORGANIZ ATION 05/30/2022 [facility] DATE CREATED AUTHOR AUTHOR'S ORGANIZ ATION 07/17/2022 [facility] DATE CREATED AUTHOR AUTHOR'S ORGANIZ ATION 10/22/2022 [facility] DATE CREATED AUTHOR AUTHOR'S ORGANIZ ATION 07/17/2023 [facility] DATE CREATED AUTHOR AUTHOR'S ORGANIZ ATION 12/09/2024 [facility] EPIC Reason for Visit (unrecogniz ed section and content) Reason Comments Scheduled Induction Cytotec Induction Status Reason Specialty Diagnoses / Procedures Referre d By Contact Referred To Contact Diagnoses Encounter for induction of labor Term Nash Mera APRN - CNM [address] [place] [address] [facility] Reason Comments Muscle Aches Reason Comments Care Reason Comments Anxiety Specialty Diagnoses / Procedures Referred By Contac t Referred To Contact Behavioral Health Diagnoses Difficulty controlling anger Anxiety, generalized (CMS/HCC) Situational stress Procedures DC OFFICE/OUTPATIENT NEW HIGH MDM 60 MINUTES Nash Mera, CNM [address] [place] [address] Phone: tel: fax: Peterson Weber LPC Referral ID Status Reason Start Date Expiration Date V isits Requested Visits Authorized [id number] Closed Specialty Services Required 09/08/2024 03/07/2025 1 1 Reason Comments Psychiatric Evaluation Ordered Prescriptions (unrec ognized section and content) [...] to epidural placement., Pre-op (day of surgery) 1734 (Given - Provider: Claudine Benavides RN) clindamycin (CLEOCIN) 900 mg in dextrose 5 % 50 mL IVPB (COMPLETED) 900 mg, IntraVENous, CASHIER OFFICE TO O.R., 1 dose, On Thu02/13/21 at 1745, Administer within 1 hour prior to incision., Labor and Delivery (Signed and Held) 173 (New Bag - Provider: Claudine Benavides, HALLE)1835 (Stopped - Provider: Marlene Ceballos RN - Comment: stopped on previous shift) docusate sodium (COLACE) capsule 100 mg 100 mg, Oral, 2 TIMES DAILY, First dose on Thu02/13/21 at 2100, Do not crush or break., 2100 (Due) 0927 (Given - Provider: Claudine Benavides RN)1957 (Given - Provider: Deja Villalobos RN) 0740 [...] Post-op 0040 (Given - Provider: Deja Villalobos, RN)0400 (Due)1257 (Given - Provider: Lila Mcintosh, RN)2000 (Due) ketorolac (TORADOL) injection 30 mg (COMPLETED) 30 mg, IntraVENous, EVERY 6 HOURS, First dose on Megan 02/14/21 at 0100, For 4 doses, Do not administer for more than 5 days., 0037 (Given - Provider: Marlene Ceballos RN)0637 (Given - Provider: Bobbi Devi, HALLE)1236 (Given - Provider: Claudine Benavides, RN)195 (Given - Provider: Deja Villalobos, HALLE) metoclopramide [...] Delivery 0013 (Given - Provider: Marlene Ceballos, HALLE)0451 (Given - Provider: Linette Lee, HALLE)0745 (Due)1145 (Due)1545 (Due) vitamin 27-1 MG tablet 1 tablet 1 tablet, Oral, DAILY, First dose on Thu02/13/21 at 2015, Begin when normal bowel activity resumes., 195 (Not Given - Provider: Marlene Ceballos, HALLE - Reason: Other) 0927 (Given - Provider: Claudine Benavides, HALLE) 0740 (Given - Provider: Lila Mcintosh, RN) sodium chloride flush 0.9 % injection 10 mL 10 mL, IntraVENous, EVERY 12 HOURS SCHEDULED (2 times per day), First dose on Thu02/13/21 at 2100, 2100 (Due) 0900 (Due)2100 (Due) 0900 (Due)2100 (Due) Augxotd-Sbhhni-Ybuiy Pertussis (BOOSTRIX) injection 0.5 mL 0.5 mL, [...] Alvarado RN)1644 (Rate/Dose Change - Provider: Claudine Benavides RN)1730 (Rate/Dose Change - Provider: Claudine Benavides RN) lactated ringers infusion (CANCELED) IntraVENous, at 125 mL/hr, CONTINUOUS, Starting on Thu02/13/21 at 1745, Labor and Delivery (Signed and Held) 1805 (New Bag - Provider: Luther Silvestre APRN - RESEARCH BIOLOGIST)1912 (Anesthesia Volume Adjustment - Provider: SAEID Sheppard CRNA) lactated ringers infusion IntraVENous, at 125 mL/hr, CONTINUOUS, Starting on Thu02/13/21 at 2015, 0055 (New Bag - Provider: Marlene Ceballos, HALLE)0903 (New Bag - Provider: María Vitale, HALLE) [...] every 2-3 minutes with cervical changes or [place] units (MVU) greater than 200 in a [...] area)1950 (Unheld by provider - Provider: SAEID Serrato) PRN Medication Order 02/13/2021 02/14/2021 02/15/2021 0.9 [...] immune or equivical, Starting on Thu02/13/21 at 194, For 1 dose, methylergonovine (METHERGINE) injection 200 mcg 200 mcg, IntraMUSCular, PRN, Bleeding, Starting on Thu02/13/21 at 194, PRN for post- hemorrhage, if not hypertensive., [...] PRN, Opioid Reversal, Starting on Thu02/13/21 at 194, Post-op ondansetron (ZOFRAN) injection 4 mg 4 [...] LPN) 045 (See Alternative - Provider: Inna Joseph, HALLE) [...] at 1949, 1700 (Given - Provider: Pramod Hernandez, MANAGER MARKET RESEARCH) 0803 (Given - Provider: Lila Mcintosh, RN) sodium chloride flush 0.9 % injection 10 mL 10 mL, IntraVENous, PRN, Line Care, Starting on Thu02/13/21 at 1949, After every IV line use, No Frequency Medication Order 02/13/2021 02/14/2021 02/15/2021 gentamicin (GARAMYCIN) 40 MG/ML injection (COMPLETED) Starting on Thu02/13/21 at 1746, For 1 dose, Tamiko Reardon: cabinet override 1756 (Given - Provider: Claudine Benavides, RN) Linked Groups Order Group 1: oxyCODONE-acetaminophen [...] PHYSICIAN NO FAMILY Primary Care Provider Active Implant Coordinator Relationship Specialty Start Date End Date Unallocated, MD Diogo Blanchard [place] [address] PCP - General Family Medicine 12/17/23 Implant Coordinator Relationship Specialty Start Date End Date Unallocated, MD Diogo Blanchard [place] [address] PCP - General Family Medicine 12/17/23 Implant Coordinator Relationship Specialty Start Date End Date Unallocated, MD Diogo Blanchard [facility] [place] [place] [address] PCP - General Family Medicine 12/17/23 Implant Coordinator Relationship Specialty Start Date End Date Unallocated, Viet Wheeler MD [facility] [place] [address] PCP - General Family Medicine 12/17/23 Implant Coordinator Relationship Specialty Start Date End Date Unallocated, Viet Wheeler MD [address] [place] [address] PCP - General Family Medicine 12/17/23 Implant Coordinator Relationship Specialty Start Date End Date Unallocated, Viet Wheeler MD [facility] [address] [place] [address] PCP - General Family Medicine 12/17/23 Implant Coordinator Relationship Specialty Start Date End Date Unallocated, Viet Wheeler MD [facility] [address] [place] [address] PCP - General Family Medicine 12/17/23 Implant Coordinator Relationship Specialty Start Date End Date Unallocated, Viet Wheeler MD [facility] [place] [address] PCP - General Family Medicine 12/17/23 Nash Mera CNM [address] [place] [address] Obstetrics and Gynecology 10/25/24 Peterson Weber LPC Sales Expert Home Theater Behavioral Health 10/25/24 Implant Coordinator Relationship Specialty Start Date End Date Unallocated, Viet Wheeler MD [facility] [address] [facility] [address] PCP - General Family Medicine 12/17/23 Nash Mera CNM [address] [place] [address] Obstetrics and Gynecology 10/25/24 Peterson Weber LPC Sales Expert [facility] 10/25/24 Implant Coordinator Relationship Specialty Start Date End Date Unallocated, Lennys ProviderMD [address] [place] [address] PCP - General Family Medicine 12/17/23 Nash Mera CNM [address] [place] [address] Obstetrics and Gynecology 10/25/24 Peterson Weber LPC Sales Expert [facility] 10/25/24 Implant Coordinator Relationship Specialty Start Date End Date Unallocated, Viet ProviderMD [address] [place] [address] PCP - General Family Medicine 12/17/23 [facility] [address] [place] [address] Obstetrics and Gynecology 10/25/24 Peterson Weber LPC Sales Expert [employer] Behavior[facility] 10/25/24 Khadra Campos, [facility] [address] [address] Nurse Practitioner Behavioral Health 12/07/24 Goals (unrecognized section and content) Goals may be documented in a n alternate sectionNo InformationNo Information Source Comments (unrecognize d section and content) In the event this informatio n is protected by the Federal Confidentiality of Alcohol and Drug Abuse Patient Records regulations: The Federal rules restrict any use of the information to criminally investigate or prosecute any alcohol or drug abuse patient.[facility] FOR RECORDS PERTAINING TO PATIENTS WHO [...] BE BASED ON THE PRIMARY CLINICAL RECORDS. [facility]. provides no warranty or guarantee of the accuracy or completeness of information in this document.
--- NOTE | 2024-12-29 07:14 | ED.GENADUL1 ---
HPI HPI - General Adult General Chief complaint: Abdominal Pain Stated complaint: ABDOMINAL PAIN Time Seen by Provider: 12/29/24 06:50 Source: patient Mode of arrival: walk-in Limitations: no limitations History of Present Illness HPI narrative: This 29-year-old female presents to the emergency department with chief complaint of upper abdominal pain with profuse vomiting for the last 3 to 4 hours. She has had some runny watery stool. She denies chills or fever. She states she just ended her menstrual period. Patient has not used marijuana since December of last year. She has never had a GI workup for this condition. Related Data Previous Rx's ?Medication ?Instructions ?Recorded pantoprazole 40 mg tablet,delayed 40 mg PO DAILY #30 tabs 12/29/24 release (Protonix) Allergies Allergy/AdvReac Type Severity Reaction Status Date / Time morphine Allergy Severe Hives Verified 12/29/24 06:47 Penicillins Allergy Severe Unknown Verified 12/29/24 06:47 Opioid HPI Opioid Management Most Recent Opioid Data: Last Pain Scale 7 Today, 06:47 Last ORT Total Score 8 07/26/24, 13:51 Last ORT Risk Category High Risk 07/26/24, 13:51 Ur Phencyclidine Scrn, (NEGATIVE) Negative 12/23/23, 07:45 Review of Systems ROS Status of ROS 10 or more systems reviewed and unremarkable except as noted in history and below PFSH PFSH Surgical History Cholecystectomy planned delivery delivered ?O82 - Encounter for delivery without indication (ICD-10) Social History Smoking status: Heavy tobacco smoker Non-prescribed substance use: cannabis (any form) Highest level of school completed/degree received: high school graduate Little interest or pleasure in doing things: not at all Feeling down, depressed, or hopeless: not at all Exam Narrative Exam Narrative: Patient's vitals are stable. She is not tachycardic or hypotensive and is afebrile oxygen saturation is 100% room air. Skin is warm and dry. HEENT exam is normal to inspection. Oral cavity is moist. Neck is supple. Lung sounds are clear to auscultation bilaterally with good air entry. Heart has regular rate and rhythm. Abdomen is soft and not distended. Bowel sounds are hypoactive and there is epigastric tenderness but without guarding or peritoneal signs. Speech and mentation are clear and intact. There is no facial asymmetry. She moves all extremities actively. She is actively vomiting when I going to see her. Constitutional Vital Signs, click to edit/add: Last Vital Signs Temp 98.1 F 12/29/24 06:47 Pulse 71 12/29/24 06:47 Resp 16 12/29/24 06:47 BP 111/82 12/29/24 06:47 Pulse Ox 100 12/29/24 06:47 O2 Del Method Room Air 12/29/24 06:47 Course Vital Signs Vital signs: Vital Signs Temperature 98.1 F 12/29/24 06:47 Pulse Rate 71 12/29/24 06:47 Respiratory Rate 16 12/29/24 06:47 Blood Pressure 111/82 12/29/24 06:47 Pulse Oximetry 100 12/29/24 06:47 Oxygen Delivery Method Room Air 12/29/24 06:47 Temperature 98.1 F 12/29/24 06:47 Pulse Rate 71 12/29/24 06:47 Respiratory Rate 16 12/29/24 06:47 Blood Pressure 111/82 12/29/24 06:47 Pulse Oximetry 100 12/29/24 06:47 Oxygen Delivery Method Room Air 12/29/24 06:47 Medical Decision Making MDM Narrative Medical decision making narrative: Patient's lipase is normal. She is unable to provide a urine specimen. test was negative. Kidney function electrolytes unremarkable. She was treated with a couple liters of IV crystalloid and IV Zofran and Protonix. Upon discharge she is placed on Protonix and she states that she has Zofran at home which she can take for nausea or vomiting. Outpatient GI and primary care follow-up is advised and she may return anytime for worsening symptoms. Lab Data Labs: Lab Results 12/29/24 Range/Units 07:20 WBC 4.8 (4.0-11.0) 10^3/uL RBC 4.43 (4.20-5.40) 10^6/uL Hgb 13.3 (12.0-16.0) g/dL Hct 39.9 (36.0-48.0) % MCV 90.1 (81.0-99.0) fL MCH 30.0 (26.7-34.0) pg MCHC 33.3 (29.9-35.2) g/dL RDW 12.7 (11.0-15.0) % Plt Count 275 (150-450) 10^3/uL MPV 10.7 (9.5-13.5) fL Neut % (Auto) 49.7 (43.0-75.0) % Lymph % (Auto) 37.0 (20.5-60.0) % [place] % (Auto) 7.3 (1.7-12.0) % Eos % (Auto) 5.0 (0.9-7.0) % Baso % (Auto) 0.8 (0.2-2.0) % Neut # (Auto) 2.4 (1.4-6.5) 10^3/uL Lymph # (Auto) 1.8 (1.2-3.8) 10^3/uL [place] # (Auto) 0.4 (0.3-0.8) 10^3/uL Eos # (Auto) 0.2 (0.0-0.7) 10^3/uL Baso # (Auto) 0.0 (0.0-0.1) 10^3/uL Abs Immat Gran (auto) 0.01 (0.00-0.03) 10^3/uL Imm/Tot Granulo (auto) 0.2 (0.0-0.5) % Sodium 141 (136-145) mmol/L Potassium 4.2 (3.5-5.1) mmol/L Chloride 106 (98-107) mmol/L Carbon Dioxide 25.2 (21.0-32.0) mmol/L Anion Gap 14.0 BUN 14.0 (7.0-18.0) mg/dL Creatinine 0.62 (0.55-1.02) mg/dL Est GFR ( Amer) >60 (>=60 mL/min/1.73m^2) Est GFR (Non-Af Amer) >60 (>=60 mL/min/1.73m^2) BUN/Creatinine Ratio 22.6 Glucose 92 (74-106) mg/dL Calcium 8.7 (8.5-10.1) mg/dL Magnesium 2.0 (1.8-2.4) mg/dL Total Bilirubin 0.6 (0.2-1.0) mg/dL Direct Bilirubin 0.1 (0.0-0.2) mg/dL AST 14 L (15-37) U/L ALT 16 (14-59) U/L Alkaline Phosphatase 67 (46-116) U/L Total Protein 6.6 (6.4-8.2) g/dL Albumin 3.3 L (3.4-5.0) g/dL Globulin 3.3 g/dL Albumin/Globulin Ratio 1.0 Lipase 26.0 (16.0-77.0) U/L Serum HCG, Qual Negative (NEGATIVE) Discharge Plan Discharge Chief Complaint: Abdominal Pain Clinical Impression: Nausea, vomiting, and diarrhea Patient Disposition: Home, Self-Care Time of Disposition Decision: 09:54 Mode of Transportation: Private Vehicle Prescriptions / Home Meds: New pantoprazole [Protonix] 40 mg tablet,delayed release (DR/EC) 40 mg PO DAILY Qty: 30 0RF Print Language: Indian Instructions: Acute Nausea and Vomiting (ED) Additional Instructions: Take Zofran for nausea and vomiting at home as needed. Seek primary care and GI follow-up for further evaluation. Return for worsening symptoms. Referrals: MARZENA ROSS [Physician, Gastroenterology] - 1 week Physician,Non-Staff, [Primary Care Provider] - 1 week
[2024-12-29] MEDS: 0.9 % SODIUM CHLORIDE 1,000 ML 1000 ML IV (07:26)
[2024-12-29 07:37] LABS: Hematocrit 39.9 % (36.0-48.0); Hemoglobin 13.3 g/dL (12.0-16.0); Immature Granulocytes Abs Auto 0.01 10^3/uL (0.00-0.03); Immature Granulocytes Pct Auto 0.2 % (0.0-0.5); Lymphocytes Absolute Auto 1.8 10^3/uL (1.2-3.8); Mean Corpuscular HGB Conc 33.3 g/dL (29.9-35.2); Mean Corpuscular Hemoglobin 30.0 pg (26.7-34.0); Mean Corpuscular Volume 90.1 fL (81.0-99.0); Platelet Count 275 10^3/uL (150-450); Red Blood Count 4.43 10^6/uL (4.20-5.40); White Blood Count 4.8 10^3/uL (4.0-11.0)
[2024-12-29 07:52] LABS: Alanine Aminotransferase 16 U/L (14-59); Albumin Globulin Ratio 1.0; Albumin Level 3.3 g/dL (3.4-5.0); Alkaline Phosphatase 67 U/L (46-116); Aspartate Amino Transferase 14 U/L (15-37); Globulin 3.3 g/dL; Lipase 26.0 U/L (16.0-77.0); Magnesium 2.0 mg/dL (1.8-2.4); Total Protein 6.6 g/dL (6.4-8.2)
[2024-12-29 08:12] LABS: Anion Gap 14.0; Blood Urea Nitrogen 14.0 mg/dL (7.0-18.0); Calcium 8.7 mg/dL (8.5-10.1); Carbon Dioxide 25.2 mmol/L (21.0-32.0); Chloride 106 mmol/L (98-107); Estimated GFR (African America >60 (>=60 mL/min/1.73m^2); Estimated GFR (Non-African Ame >60 (>=60 mL/min/1.73m^2); Glucose 92 mg/dL (74-106); Potassium 4.2 mmol/L (3.5-5.1); Sodium 141 mmol/L (136-145)
[2024-12-29 10:05] VITALS: BP 110/81; PULSE 81; O2SAT 99
== END 2024-12-29 10:05 | disposition home or self-care (01) ==
PROVIDERS: Emergency Provider Emergency Medicine
DX: R11.2 Nausea with vomiting, unspecified (principal); R19.7 Diarrhea, unspecified; F17.200 Nicotine dependence, unspecified, uncomplicated
CPT/HCPCS: 36415; 80048; 80076; 80307; 83690; 83735; 84703; 85025; 96361; 96374; 99284; J2405

== ENCOUNTER 2025-04-10 11:12 | Emergency (ER) | payer OTHER, SELFPAY ==
[2025-04-10 11:16] VITALS: BP 116/84; PULSE 85; TEMP 36.9; O2SAT 98; BMI 27.4
--- OUTSIDE RECORDS SUMMARY | 2025-04-10 11:22 | XMS_ITS | Encounter Summary ---
Author Organization [facility] Address [address] [place] [address] Care Team Providers Care Fabric Stretcher Name Role Phone Unallocated, Noms Provider Primary Care Provi meño Ginny Mera CNM Unavailable Peterson Gabriel [facility] Unavailable Unavailable Anita Campos PMHNP- Unavailable [phone] Encounter Details DateTypeDepartmentCare Team (Latest Contact Info)Rbbilxndvgc06/13/2024Clinisync Result Encounter [facility] External Department Unsolicited Ginny Mera, CNM [address] [place] [address] Social History Tobacco UseTypesPacks/DayYears UsedDateSmoking Tobacco: FormerCigarettesAlcohol UseStandard Drinks/WeekCommentsNot Currently0 (1 standard drink = 0.6 oz pure alcohol)caffeine: 1-2 cups per dayAUDIT-CAnswerDate RecordedQ1: How often do you have a drink containing alcohol?Monthly or less12/07/2024Q2: How many drinks containing alcohol do you have on a typical day when you are drinking?1 or 2 12/07/2024Q3: How often do you have six or more drinks on one occasion?Never 12/07/2024PHQ-2AnswerDate RecordedPatient Health Questionnaire-2 Score4 12/07/2024Edinburgh Depression ScaleAnswerDate RecordedEdinburgh Depression Scale Ozlgd6241/25/2024The thought of harming myself has occurred to me.Never09/25/2024CommentsYesSex and Gender InformationValue Date RecordedSex Assigned at TaebjHwdxlb99/25/2024 2:03 PM ESTLegal SexFemale 08/20/2022 11:15 PM EDTGender HyiaybdwQffktv92/25/2024 2:03 PM ESTSexual OrientationNot on filedocumented as of this encounter Functional Status * AUDIT-C ScoreAnswerDate of JsuimjtmfaMfnkcg567/02/2025 12:49 PM María Sofia LPN * QuestionAnswerDate of AssessmentAuthorQ1: How often do you have a drink containing alcohol?Monthly or less12/07/2024 12:49 PM María Sofia LPNQ2: How many drinks containing alcohol do you have on a typical day when you are drinking?1 or 12:49 PM María Sofia LPNQ3: How often do you have six or more drinks on one occasion?Never12/07/2024 12:49 PM María Sofia LPN * Over the past 2 weeks, how often have you been bothered by any of the following problems?QuestionAnswerDate of AssessmentAuthorPatient Health Questionnaire-2 Hrddi614 1:13 PM Anita Olivares PMHNP-BC * How difficult have these problems made it for you to do your work, take care of things at home, or get along with other people?AnswerDate of Assessment AuthorExtremely hirqmrgxs49/02/2025 1:13 PM Anita Olivares PMHNP-BC * Over the last 2 weeks, how often have you been bothered by any of the following problems?QuestionAnswerDate of AssessmentAuthorFeeling nervous, anxious, or on nrex705 1:16 PM Anita Olivares PMHNP-BCNot being able to stop or control yxueyyri983/02/2025 1:16 PM Anita Olivares PMHNP-BCWorrying too much about different smnwxu676 1:16 PM Anita Ray PMHNP-BCTrouble txyzcfwr896/02/2025 1:16 PM EDTBriAnita keys, PMHNP-BCBeing so restless that it is hard to sit ikswq903 1:16 PM EDTBriAnita keys, PMHNP-BCBecoming easily annoyed or irritable3 12/07/2024 1:16 PM EDTBriAnita keys, PMHNP-BCFeeling afraid as if something awful might hispok157 1:16 PM EDTBriAnita keys, PMHNP-BC AYDIN-7 Total Wphge8075/02/2025 1:16 PM EDTBriAnita keys, PMHNP-BC * Over the past 2 weeks, how often have you been bothered by any of the following problems?QuestionAnswerDate of AssessmentAuthorLittle interest or pleasure in doing thingsMore than half the days12/07/2024 1:13 PM EDTBriDomenica keysth, PMHNP-BCFeeling down, depressed, or hopelessMore than half the days 12/07/2024 1:13 PM EDTBriNabila keysdith, PMHNP-BCTrouble falling or staying asleep, or sleeping too muchNearly every day12/07/2024 1:13 PM EDTBriNabila keysdith, PMHNP-BCFeeling tired or having little energyNearly every day 12/07/2024 1:13 PM EDTBriAnita keys, PMHNP-BCPoor appetite or overeating Nearly every day12/07/2024 1:13 PM EDTBriDomenica keysth, PMHNP-BCFeeling bad about yourself - or that you are a failure or have let yourself or your family downNearly every day12/07/2024 1:13 PM EDTBriDomenica keysth, PMHNP-BCTrouble concentrating on things, such as reading the newspaper or watching television Nearly every day12/07/2024 1:13 PM EDTBriAnita keys, PMHNP-BCMoving or speaking so slowly that other people could have noticed? Or the opposite - being so fidgety or restless that you have been moving around a lot more than usual.More than half the days12/07/2024 1:13 PM Anita Olivares PMHNP-BC Thoughts that you would be better off or hurting yourself in some wayNot at all12/07/2024 1:13 PM Ainta Olivares PMHNP-BCPatient Health Questionnaire-9 Rwzyq242512/07/2024 1:13 PM Anita Olivares PMHNP-BC documented as of this encounter Plan of Treatment DateTypeDepartmentCare Team (Latest Contact Info)Orzyvnjhrnj65/06/2025 12:00 PM ESTSocial Work [facility] [address] [place] [address] Peterson Gabriel LPC 06/21/2025 1:30 PM ESTTelemedicine [facility] [address] [place] [address] Anita Campos PMHNP-BC [address] [place] [address] documented as of this encounter Goals GoalPatient Goal TypeAssociated ProblemsRecent ProgressPatient-Stated?Author Reminders Care PlanOB RemindersNoOpen Scheduling, Backgrounddocumented as of this encounter Procedures Procedure NamePriorityDate/TimeAssociated DiagnosisCommentsUS OB PLACENTA 12/19/2023 2:28 PM EDT [facility] BOX TEST SENT KWBAbgwulc77/13/2024 8:00 AM EDT documented in this encounter Results * US OB PLACENTA (12/19/2023 2:28 PM EDT)Anatomical RegionLateralityModality OtherSpecimen (Source)Anatomical Location / LateralityCollection Method / VolumeCollection TimeReceived Time12/19/2023 2:28 PM EDT Narrative 12/19/2023 2:31 PM EDT [facility] ?[address] ? [place] [address] ? Ultrasound Report ? Signed ? Patient: JESSICA,RENATE M ?MR#: [id number] ?? : 1995 ?Acct:[id number] ?? Age/Sex: 28 / F ?ADM Date: ?? Loc: FBC ??250-1 ? Attending Dr: Tay Dominique D.O. ? Ordering Physician: GINNY MERA APRN, CNM ?? Date of Service: 12/19/23 ?? Procedure(s): US OB placenta ?? Accession Number(s): [id number] ? cc: GINNY MERA APRN, CNM; Physician,Non-Staff M.D. ? [facility] ? [address] ? [place] [address] ? Patient Name: ?? RENATE LOPEZ ? MRN: [facility]:[id number] ? date: 1995 ?Sex: F ?? Assigned Patient Location: FBC ?? Current Patient Location: ? Accession/Order Number: [id number] ?? Exam Date: 12/19/2023 ??09:20 ?Report Date: 12/19/2023 ??14:28 ? At the request of: ?? GINNY ??TAVO ? Procedure: ??US OB placenta ? ULTRASOUND BIOPHYSICAL PROFILE ? CLINICAL HISTORY: Pain ? COMPARISON: 10/16/2023 ? TECHNIQUE: Grayscale imaging of the pelvis is performed ? FINDINGS: ? There is a single living intrauterine gestation, with a gestation age of 38 ?? weeks 2 days by LMP. presentation is cephalic. heart rate is 131. ?? No anomalies are seen. The placenta is anterior marginal. ? Amniotic fluid index: 13.7 ?? Biophysical profile: 8 out of 8. (2 breathing, 2 activity, 2 tone, 2 LATRELL) ? US/US OB placenta ?? IMPRESSION: ? Biophysical profile scoring 8 out of 8. ? Electronically authenticated by: SURY ??ANNALEE ?? Date: 12/19/2023 ??14:28 ? Dictated By: ?Sury Mantilla M.D. ? Signed By: ?12/19/23 1431 ? DD/ 1428 ? TD/TT: ? Rn Mds Coordinator: Procedure Note Radiology, Radiologist, MD - 12/19/[address] [address] Ultrasound Report Signed Patient: RENATE LOPEZ MMR#: [id number] : 1995Acct:[id number] Age/Sex: 28 / FADM Date: Loc: [facility] 250-[address]: Tay Dominique D.O. Ordering Physician: GINNY MERA APRN, CNM Date of Service: 12/19/23 Procedure(s): US OB placenta Accession Number(s): [id number] cc: GINNY MERA APRN, CNM; Physician,Non-Staff [address] [place] [address] Patient Name: RENATE LOPEZ MRN: [facility]:[id number] date: 1995 Sex: F Assigned Patient Location: [facility] Current Patient Location: Accession/Order Number: [id number] Exam Date: 12/19/2023 09:20 Report Date: 12/19/2023 14:28 At the request of: GINNY MERA Procedure: US OB placenta ULTRASOUND BIOPHYSICAL PROFILE CLINICAL HISTORY: Pain COMPARISON: 10/16/2023 TECHNIQUE: Grayscale imaging of the pelvis is performed FINDINGS: There is a single living intrauterine gestation, with a gestation age of38 weeks 2 days by LMP. presentation is cephalic. heart rate is131. No anomalies are seen. The placenta is anterior marginal. Amniotic fluid index: 13.7 Biophysical profile: 8 out of 8. (2 breathing, 2 activity, 2 tone, 2 LATRELL) US/US OB placenta IMPRESSION: Biophysical profile scoring 8 out of 8. Electronically authenticated by: SURY MANTILLA Date: 12/19/2023 14:28 Dictated By: Sury Mantilla M.D. Signed By:12/19/23 1431 DD/ 1428 TD/TT: Rn Mds Coordinator: Authorizing ProviderResult TypeResult StatusValedayan Mera [facility] Final Result * [facility] BOX TEST SENT OUT (12/19/2023 8:00 AM EDT)ComponentValueRef RangeTest MethodAnalysis TimePerformed AtPathologist SignatureBOX TEST SENT OUTTB Comment:SEE SCANNED REPORTSpecimen (Source)Anatomical Location / Laterality Collection Method / VolumeCollection TimeReceived Time12/19/2023 8:00 AM EDT 12/19/2023 8:34 AM EDT Narrative [facility] - 12/22/2023 9:17 AM EDT Authorizing ProviderResult TypeResult StatusValerilisa Mera [facility]ISYNCFinal ResultPerforming OrganizationAddressCity/State/ZIP CodePhone Number [facility] documented in this encounter Visit Diagnoses Not on filedocumented in this encounter Additional Health Concerns Active ProblemsNoted DateDiagnosed DateOB Oqpzozrwe13/07/2023 documented as of this encounter Care Teams Team MemberRelationshipSpecialtyStart DateEnd Date Unallocated, Noms Provider, [address] [place] [address] PCP - GeneralFamily Medicine12/17/23 Ginny Mera CNM [address] [facility] [place] [address] Obstetrics and Gynecology10/25/24 Peterson Gabriel LPC Social WorkerBehavioral Health10/25/24 Anita Campos PMHNP- [address] [address] Nurse PractitionerBehavioral Health12/07/24documented as of this encounter
--- OUTSIDE RECORDS SUMMARY | 2025-04-10 11:22 | XMS_ITS | Encounter Summary ---
Author Organization [facility] Address [address] [place] [address] Care Team Providers Care Librarian Special Library Name Role Phone Unallocated, Noms Provider Primary Care Provi meño Ginny Mera CNM Unavailable Peterson Gabriel [facility] Unavailable Unavailable Anita Campos PMHNP- Unavailable [phone] Encounter Details DateTypeDepartmentCare Team (Latest Contact Info)Ufpaftbhzlu13/13/2024Clinisync Result Encounter [facility] External Department Unsolicited Ginny Mera, CNM [address] [place] [address] Social History Tobacco UseTypesPacks/DayYears UsedDateSmoking Tobacco: FormerCigarettesAlcohol [...] Score4 12/07/2024Edinburgh Depression ScaleAnswerDate RecordedEdinburgh Depression Scale Rgexr9234/25/2024The thought of harming myself has occurred to me.Never09/25/2024CommentsYesSex and Gender InformationValue Date RecordedSex Assigned at FkebyUpigrp61/25/2024 2:03 PM ESTLegal SexFemale 08/20/2022 11:15 PM EDTGender TdtiqoxkWoxkqj78/25/2024 2:03 PM ESTSexual OrientationNot on filedocumented as of this encounter Functional Status * AUDIT-C ScoreAnswerDate of CnxeaarovyPpwpzf039/02/2025 12:49 PM María Sofia LPN * QuestionAnswerDate [...] the following problems?QuestionAnswerDate of AssessmentAuthorPatient Health Questionnaire-2 Zlohw335 1:13 PM Anita Olivares PMHNP-BC * How difficult have these problems made it for you to do your work, take care of things at home, or get along with other people?AnswerDate of Assessment AuthorExtremely axakvltxe34/02/2025 1:13 PM Anita Olivares PMHNP-BC * Over the last 2 weeks, how often have you been bothered by any of the following problems?QuestionAnswerDate of AssessmentAuthorFeeling nervous, anxious, or on mexn387 1:16 PM Anita Olivares PMHNP-BCNot being able to stop or control /02/2025 1:16 PM Anita Olivares PMHNP-BCWorrying too much about different 1:16 PM Anita Ray PMHNP-BCTrouble boumyuwr149/02/2025 1:16 PM EDTBriAnita keys, PMHNP-BCBeing so restless that it is hard to sit ffyxn537 1:16 PM EDTBriAnita keys, PMHNP-BCBecoming easily annoyed or irritable3 12/07/2024 1:16 PM EDTBriAnita keys, PMHNP-BCFeeling afraid as if something awful might iqivfm621 1:16 PM EDTBriAnita keys, PMHNP-BC AYDIN-7 Total Yyawy5172/02/2025 1:16 PM EDTBriAnita keys, PMHNP-BC * Over the past 2 weeks, how often have you been bothered by any of the following problems?QuestionAnswerDate of AssessmentAuthorLittle interest or pleasure in doing thingsMore than half the days12/07/2024 1:13 PM EDTBriDomenica keysth, PMHNP-BCFeeling down, depressed, or hopelessMore than half the days 12/07/2024 1:13 PM EDTBriNabila ekysdith, PMHNP-BCTrouble falling or staying asleep, or sleeping [...] in some wayNot at all12/07/2024 1:13 PM Anita Olivares PMHNP-BCPatient Health Questionnaire-9 Arude535012/07/2024 1:13 PM Anita Olivares PMHNP-BC documented as of this encounter Plan of Treatment DateTypeDepartmentCare Team (Latest Contact Info)Pblcuoqfzcg26/06/2025 12:00 PM ESTSocial Work [facility] [address] [place] [address] Peterson Gabriel [facility] 06/21/2025 1:30 PM ESTTelemedicine [facility] [address] [place] [address] Anita Campos PMHNP-BC [address] [place] [address] documented as of this encounter Goals GoalPatient Goal TypeAssociated ProblemsRecent ProgressPatient-Stated?Author Reminders Care PlanOB RemindersNoOpen Scheduling, Backgrounddocumented as of this encounter Procedures Procedure NamePriorityDate/TimeAssociated DiagnosisCommentsUS OB BPP W NON-FDICUY4212/19/2023 2:28 PM EDT documented in this encounter Results * US OB BPP W NON-STRESS (12/19/2023 2:28 PM EDT)Anatomical Region LateralityModalityOtherSpecimen (Source)Anatomical Location / Laterality Collection Method / VolumeCollection TimeReceived Time12/19/2023 2:28 PM EDT Narrative 12/19/2023 2:31 PM EDT [facility] ?[address] ? [place] [address] ? Ultrasound Report ? Signed ? Patient: JESSICA,RENATE M ?MR#: [id number] ?? : 1995 ?Acct:[id number] ?? Age/Sex: 28 / F ?ADM Date: ?? Loc: FBC ??250-1 ? Attending Dr: Tay Dominique D.O. ? Ordering Physician: GINNY MERA APRN, CNM ?? Date of Service: 12/19/23 ?? Procedure(s): US OB BPP w non-stress ?? Accession Number(s): [id number] ? cc: GINNY MERA APRN, CNM; Physician,Non-Staff M.D. ? [facility] ? [address] ? [place] [address] ? Patient Name: ?? RENATE LOPEZ ? MRN: [facility]:[id number] ? date: 1995 ?Sex: F ?? Assigned Patient Location: FB ?? Current Patient Location: ? Accession/Order Number: [id number] ?? Exam Date: 12/19/2023 ??09:20 ?Report Date: 12/19/2023 ??14:28 ? At the request of: ?? GINNY ??TAVO ? Procedure: ??US OB BPP w non-stress ? ULTRASOUND BIOPHYSICAL PROFILE ? CLINICAL HISTORY: [...] 2 tone, 2 LATRELL) ? US/US OB BPP w non-stress ?? IMPRESSION: ? Biophysical profile scoring 8 out of 8. ? Electronically authenticated by: SURY ??ANNALEE ?? Date: 12/19/2023 ??14:28 ? Dictated By: ?Sury Mantilla M.D. ? Signed By: ?12/19/23 1431 ? DD/ 1428 ? TD/TT: ? Bookie: Procedure Note Radiology, Radiologist, MD - 12/19/2023 [place] [address] Ultrasound Report Signed Patient: RENATE LOPEZ [facility]#: [id number] : 1995Acct:[id number] Age/Sex: 28 / FADM Date: Loc: [facility] 250-[address]: Tay Dominique D.O. Ordering Physician: GINNY MERA APRN, CNM Date of Service: 12/19/23 Procedure(s): US OB BPP w non-stress Accession Number(s): [id number] cc: GINNY MERA APRN, CNM; Physician,Non-Staff [address] [place] [address] Patient Name: RENATE LOPEZ MRN: [facility]:[id number] date: 1995 Sex: F Assigned Patient Location: [facility] Current Patient Location: Accession/Order Number: [id number] Exam Date: 12/19/2023 09:20 Report Date: 12/19/2023 14:28 At the request of: GINNY MERA Procedure: US OB BPP w non-stress ULTRASOUND BIOPHYSICAL PROFILE CLINICAL HISTORY: Pain COMPARISON: [...] activity, 2 tone, 2 LATRELL) US/US OB BPP w non-stress IMPRESSION: Biophysical profile scoring 8 out of 8. Electronically authenticated by: SURY MANTILLA Date: 12/19/2023 14:28 Dictated By: Sury Mantilla M.D. Signed By:12/19/23 1431 DD/ 1428 TD/TT: Bookie: Authorizing ProviderResult TypeResult StatusValedayan [facility]NC IMAGING Final Result documented in this encounter Visit Diagnoses Not on filedocumented in this encounter Additional Health Concerns Active ProblemsNoted DateDiagnosed DateOB Dnbqxvxdq37/07/2023 documented as of this encounter Care Teams Team MemberRelationshipSpecialtyStart DateEnd Date Unallocated, Noms Provider, [address] [place] [address] PCP - GeneralFamily Medicine12/17/23 Ginny Mera CNM [address] [place], [place] [address] Obstetrics and Gynecology10/25/24 Peterson Gabriel LPC Social WorkerBehavioral Health10/25/24 Anita Campos, [facility]- [address] [facility] [address] [place] [address] Nurse PractitionerBesancta maria hospital Health12/07/24documented as of this encounter
--- OUTSIDE RECORDS SUMMARY | 2025-04-10 11:22 | XMS_ITS | Encounter Summary ---
Author Organization [facility] Address [address] [place] [address] Care Team Providers Care Master Electrician Name Role Phone Unallocated, Noms Provider Primary Care Provi meño Ginny Mera CNM Unavailable [phone] Peterson Gabriel [facility] Unavailable Unavailable Anita Campos PMHNP- Unavailable [phone] Encounter Details DateTypeDepartmentCare Team (Latest Contact Info)Xdnmjzyapyv82/11/2024Clinisync Result Encounter [facility] External Department Unsolicited Ginny Mera, CNM [address] [place] [address] Social History Tobacco UseTypesPacks/DayYears UsedDateSmoking Tobacco: FormerCigarettesAlcohol [...] Score4 12/07/2024Edinburgh Depression ScaleAnswerDate RecordedEdinburgh Depression Scale Ffhwo7924/25/2024The thought of harming myself has occurred to me.Never09/25/2024CommentsYesSex and Gender InformationValue Date RecordedSex Assigned at YhszkNwkepj48/25/2024 2:03 PM ESTLegal SexFemale 08/20/2022 11:15 PM EDTGender UnlhuowuGcwetf58/25/2024 2:03 PM ESTSexual OrientationNot on filedocumented as of this encounter Functional Status * AUDIT-C ScoreAnswerDate of LbrphukyetLemdnt016/02/2025 12:49 PM María Sofia LPN * QuestionAnswerDate [...] the following problems?QuestionAnswerDate of AssessmentAuthorPatient Health Questionnaire-2 Pmzig953 1:13 PM Anita Olivares PMHNP-BC * How difficult have these problems made it for you to do your work, take care of things at home, or get along with other people?AnswerDate of Assessment AuthorExtremely trrmmdyzp26/02/2025 1:13 PM Anita Olivares PMHNP-BC * Over the last 2 weeks, how often have you been bothered by any of the following problems?QuestionAnswerDate of AssessmentAuthorFeeling nervous, anxious, or on vpvd105 1:16 PM Anita Olivares PMHNP-BCNot being able to stop or control tcqbfsat463/02/2025 1:16 PM Anita Olivares PMHNP-BCWorrying too much about different arzijd948 1:16 PM Anita Ray PMHNP-BCTrouble rpwwoxyp912/02/2025 1:16 PM EDTBriAnita keys, PMHNP-BCBeing so restless that it is hard to sit ppcca343 1:16 PM EDTBriAnita keys, PMHNP-BCBecoming easily annoyed or irritable3 12/07/2024 1:16 PM EDTBriAnita keys, PMHNP-BCFeeling afraid as if something awful might 1:16 PM EDTBriAnita keys, PMHNP-BC AYDIN-7 Total Rrslt8570/02/2025 1:16 PM EDTBriAnita keys, PMHNP-BC * Over [...] wayNot at all12/07/2024 1:13 PM Anita Olivares PMHNP-SHANDRAatient Health Questionnaire-9 Ztfbq852812/07/2024 1:13 PM Anita Olivares PMHNP-BC documented as of this encounter Plan of Treatment DateTypeDepartmentCare Team (Latest Contact Info)Opceojhlvwo61/06/2025 12:00 PM ESTSocial Work [facility] [address] [place] [address] Peterson Gabriel [facility] 06/21/2025 1:30 PM ESTTelemedicine [facility] [address] [place] [address] Anita Campos PMHNP-BC [address] [place] [address] documented as of this encounter Goals GoalPatient Goal TypeAssociated ProblemsRecent ProgressPatient-Stated?Author Reminders Care PlanOB RemindersNoOpen Scheduling, Backgrounddocumented as of this encounter Procedures Procedure NamePriorityDate/TimeAssociated DiagnosisCommentsUS OB GROWTH 10/17/2023 6:22 AM EDT documented in this encounter Results * US OB GROWTH (10/17/2023 6:22 AM EDT)Anatomical RegionLateralityModalityOther Specimen (Source)Anatomical Location / LateralityCollection Method / Volume Collection TimeReceived Time10/17/2023 6:22 AM EDT Narrative 10/17/2023 6:25 AM EDT [facility] ?[address] ? [place] [address] ? Ultrasound Report ? Signed ? Patient: JESSICA,RENATE M ?MR#: [id number] ?? : 1995 ?Acct:[id number] ?? Age/Sex: 28 / F ?ADM Date: 05/10/24 ?? Loc: US ? Attending Dr: GINNY MERA APRN, CNM ? Ordering Physician: GINNY MERA APRN, CNM ?? Date of Service: 10/16/23 ?? Procedure(s): US OB growth ?? Accession Number(s): [id number] ? cc: GINNY MERA APRN, CNM; Physician,Non-Staff M.D. ? [facility] ? [address] ? [place] [address] ? Patient Name: ?? RENATE LOPEZ ? MRN: [facility]:[id number] ? date: 1995 ?Sex: F ?? Assigned Patient Location: US ?? Current Patient Location: ? Accession/Order Number: [id number] ?? Exam Date: 10/16/2023 ??16:30 ?Report Date: 10/17/2023 ??06:22 ? At the request of: ?? GINNY ??TAVO ? Procedure: ??US OB growth ? EXAMINATION: US OB growth ? HISTORY: related condition in the third trimester O26.93 ? COMPARISON: No relevant comparison available. ? FINDINGS: ? Heart Rate: 140.6 bpm ?? Number: 1.0 ?? Position: Cephalic ?? Amniotic Fluid Volume: 16.0 cm ?? Maximum Vertical Pocket: 5.5 cm ? BIOMETRY: ?? BPD: 7.3 cm cm; 29 weeks 3 days; 49% ?? HC: 27.1 cmcm; 29 weeks 4 days; 29% ?? AC: 25.6 cm cm; 29 weeks 5 days; 64% ?? FL: 5.6 cm cm; 29 weeks 2 days; 38% ?? EFW: 1417.6 grams; 53% ?? FL/AC: 21.7 ?? FL/BPD: 75.6 ?? HC/AC: 1.1 ? GESTATIONAL AGE: ?? Age by EDC: 29 weeks 1 days ?? ALEXANDRA by EDC: 12/31/2023 ?? Age by US: 29 weeks 4 days ?? ALEXANDRA by US: 12/28/2023 ? US/US OB growth ?? IMPRESSION: ? 1. Single live intrauterine with growth detailed above. ? Electronically authenticated by: ABDI ??BELA ?? Date: 10/17/2023 ??06:22 ? Dictated By: ?Abdi Garibay M.D. ? Signed By: ?10/17/23 0625 ? DD/DT: /05/01 0622 ? TD/TT: ? Threading Machine Feeder Automatic: Procedure Note Radiology, Radiologist, - 10/17/2023 [place] [address] Ultrasound Report Signed Patient: RENATE LOPEZ MMR#: [id number] : 1995Acct:[id number] Age/Sex: 28 / FADM Date: 10/16/23 Loc: US Attending Dr: GINNY MERA APRN, CNM Ordering Physician: GINNY MERA APRN, CNM Date of Service: 10/16/23 Procedure(s): US OB growth Accession Number(s): [id number] cc: GINNY MERA APRN, CNM; Physician,Non-Staff M.D. The [place] [id number] Patient Name: RENATE LOPEZ MRN: [id number] date: 1995 Sex: F Assigned Patient Location: US Current Patient Location: Accession/Order Number: [id number] Exam Date: 10/16/2023 16:30 Report Date: 10/17/2023 06:22 At the request of: GINNY MERA Procedure: US OB growth EXAMINATION: US OB growth HISTORY: related condition in the third trimester O26.93 COMPARISON: No relevant comparison available. FINDINGS: Heart Rate: 140.6 bpm Number: 1.0 Position: Cephalic Amniotic Fluid Volume: 16.0 cm Maximum Vertical Pocket: 5.5 cm BIOMETRY: BPD: 7.3 cm cm; 29 weeks 3 days; 49% HC: 27.1 cmcm; 29 weeks 4 days; 29% AC: 25.6 cm cm; 29 weeks 5 days; 64% FL: 5.6 cm cm; 29 weeks 2 days; 38% EFW: 1417.6 grams; 53% FL/AC: 21.7 FL/BPD: 75.6 HC/AC: 1.1 GESTATIONAL AGE: Age by EDC: 29 weeks 1 days ALEXANDRA by EDC: 12/31/2023 Age by US: 29 weeks 4 days ALEXANDRA by US: 12/28/2023 US/US OB growth IMPRESSION: 1. Single live intrauterine with growth detailed above. Electronically authenticated by: ABDI GARIBAY Date: 10/17/2023 06:22 Dictated By: Abdi Garibay M.D. Signed By:10/17/23624 DD/ 1 TD/TT: Threading Machine Feeder Automatic: Authorizing ProviderResult TypeResult StatusValerilisa Mera [facility] Final Result documented in this encounter Visit Diagnoses Not on filedocumented in this encounter Additional Health Concerns Active ProblemsNoted DateDiagnosed DateOB Iulayszxf09/07/2023 documented as of this encounter Care Teams Team MemberRelationshipSpecialtyStart DateEnd Date Unallocated, Noms Provider, [address] [place] [address] PCP - GeneralFamily Medicine12/17/23 Ginny Mera CNM [address] [place] [address] Obstetrics and Gynecology10/25/24 Peterson Gabriel LPC Social WorkerBehavioral Health10/25/24 Anita Campos PMHNP- [address] [address] Nurse PractitionerBehavioral Health12/07/24documented as of this encounter
--- OUTSIDE RECORDS SUMMARY | 2025-04-10 11:22 | XMS_ITS | Clinical Summary ---
Author Organization [facility] Address [address] [place] [address] Care Team Providers Care Data Center Manager Name Role Phone Unallocated, Noms Provider Primary Care Provi meño Ginny Mera CNM Unavailable [phone] Peterson Gabriel DIGITAL MARKETING MANAGER Unavailable Unavailable Anita Campos PMHNP-BC Unavailable Allergies Active AllergyReactionsCriticalityNoted OntfQbczxnkaRgqnmwmxmapqPcrtn54/02/2025 Increased anxiety, nightmares, loss appetite KauhplapSltym06/16/8951SoeuqsnurixStziwRec86/15/2019 doesn't know- was a child BcbtbacrcsSudcf79/02/2025 Nightmares, couldn't regulate emotions and insomnia Medications MedicationSigDispense QuantityRefillsLast FilledStart DateEnd DateStatus atomoxetine (Strattera) 40 MG capsule Indications:Attention deficit hyperactivity disorder (ADHD), predominantly inattentive typeTake 1 capsule (40 mg) by mouth Daily Swallow capsule whole; do not open. If opened accidentally, do not touch eyes; wash hands immediately (product is an eye irritant). 30 capsule 5Active venlafaxine XR (Effexor XR) 37.5 MG 24 hr capsule Indications:Severe episode of recurrent major depressive disorder, without psychotic features (HCC),AYDIN (generalized anxiety disorder),PTSD (post-traumatic stress disorder)Take 1 capsule (37.5 mg) by mouth Daily Do not crush or chew. 30 capsule 5Active Active Problems ProblemNoted DateDiagnosed DateAttention deficit hyperactivity disorder (ADHD), predominantly inattentive type01/11/2025Severe episode of recurrent major depressive disorder, without psychotic zcfmmedc40/02/2025PTSD (post-traumatic stress disorder)12/07/2024Marijuana user12/07/2024GAD (generalized anxiety disorder)10/17/2024Situational szhhgf3210/17/2024Difficulty controlling anger 10/17/2024alculus of gallbladder without cholecystitis without obstruction 09/17/2023 Resolved Problems ProblemNoted DateDiagnosed DateResolved YqcmTckpmaqrox51/11/202404/04/2024Fetal intolerance to labor, delivered, current hospitalization ([facility])05/22/2022 09/17/2023iliary anastomotic leak/04/2024History of miscarriage /04/2024Hx of chlamydia ugepkeyrr74/04/2024 Encounters DateTypeDepartmentCare CiyxMlpshnqnfpe93/01/2025 1:30 PM EDTSocial Work N[facility] [address] [place] [address] Peterson Gabriel LPC Severe episode of recurrent major depressive disorder, without psychotic features (HCC); AYDIN (generalized anxiety disorder); PTSD (post-traumatic stress disorder); Attention deficit hyperactivity disorder (ADHD), predominantly inattentive type 03/08/2025[facility] flowsheet [address] [place] [address] Peterson Gabriel LPC 03/08/20255933Czenui81/15/2025 12:30 PM EDTSocial Work [facility] [address] [place] [address] Peterson Gabriel LPC Severe episode of recurrent major depressive disorder, without psychotic features (HCC); AYDIN (generalized anxiety disorder) ; PTSD (post-traumatic stress disorder) ; Attention deficit hyperactivity disorder (ADHD), predominantly inattentive type 02/20/2025amb flowsheet [address]OM[address] [place] [address] Peterson Gabriel LPC 02/20/20254568Aisumg09/10/2025 9:[address] [place] [address] [facility] Severe episode of recurrent major depressive disorder, without psychotic features (HCC); AYDIN (generalized anxiety disorder) ; PTSD (post-traumatic stress disorder) ; Attention deficit hyperactivity disorder (ADHD), predominantly inattentive type 02/08/20259688Yruvga78/02/2025 9:[address] [place] [address] Peterson Gabriel [facility] Severe episode of recurrent major depressive disorder, without psychotic features (HCC); AYDIN (generalized anxiety disorder) ; PTSD (post-traumatic stress disorder) ; Attention deficit hyperactivity disorder (ADHD), predominantly inattentive type 02/07/2025amb[address] [place] [address] Peterson Gabriel [facility] 02/07/20251391Iupvza69/06/2025 9:[address] [place] [address] Anita Campos, [facility] Severe episode of recurrent major depressive disorder, without psychotic features (HCC); AYDIN (generalized anxiety disorder) ; PTSD (post-traumatic stress disorder) ; Attention deficit hyperactivity disorder (ADHD), predominantly inattentive type 01/11/2025Travelfrom Last 3 Months Family History Medical HistoryRelationNameCommentsADD / ADHDFather's BrotherAlcohol abuse Maternal GrandfatherPapaAlcohol abuseMaternal GrandmotherNanaAlcohol abuseMother ShawnaDepressionMotherShawnaDrug abuseMotherShawnaAlcohol abuseMother's Brother 1MichaelBipolar disorderMother's Brother 1MichaelCancerMother's Brother 1Michael Drug abuseMother's Brother 1MichaeldiedAlcohol abuseMother's Brother 2Josh Bipolar disorderMother's Brother 2JoshDrug abuseMother's Brother 2JoshAlcohol abuseMother's SisterChristinaDepressionMother's SisterChristinaAutismNephew RelationNameStatusCommentsFather's BrotherMaternal GrandfatherPapaAliveMaternal GrandmotherNanaAliveMotherShawnaAliveMother's Brother 1MichaelAliveMother's Brother 2JoshAliveMother's SisterChristinaAliveNephewOther Social History Tobacco UseTypesPacks/DayYears UsedDateSmoking Tobacco: Some DaysCigarettes Smokeless Tobacco: Never Tobacco Cessation:Ready to Q uit: Not Asked; Counseling Given: Not Answered Comments:smoked vapes for 10 yrs. Alcohol UseStandard Drinks/WeekCommentsNot Currently0 (1 standard drink = 0.6 oz pure alcohol)caffeine: 5 energy drinks weeklyAUDIT-CAnswerDate RecordedQ1: How often do you have a drink containing alcohol?Monthly or less12/07/2024Q2: How many drinks containing alcohol do you have on a typical day when you are drinking?1 or Q3: How often do you have six or more drinks on one occasion?Never12/07/2024PHQ-2AnswerDate RecordedPatient Health Questionnaire-2 Vjlbb071Edinburgh Depression ScaleAnswerDate RecordedEdinburgh Depression Scale Llfkq3387/25/2024The thought of harming myself has occurred to me.Never4CommentsNoSex and Gender InformationValue Date RecordedSex Assigned at VrbgsBjxoks36/25/2024 2:03 PM ESTLegal SexFemale 08/20/2022 11:15 PM EDTGender OeodunxfFrobtw76/25/2024 2:03 PM ESTSexual OrientationNot on fileOccupationIndustryJob Start DateJob End DatePersonal Care AidesNot on fileNot on fileNot on file Last Filed Vital Signs Vital SignReadingTime TakenCommentsBlood Cvuljakc018/6607 12:47 PM EDT Jriya547412/07/2024 12:47 PM EDTTemperature--Respiratory Rate--Oxygen Saturation-- Inhaled Oxygen Concentration--Xeizdc74.6 kg (138 lb)12/07/2024 12:47 PM EDT Ijusyi323.5 cm (5' 2 )09/03/2022 12:00 PM EDTBody Mass Index25.24009/03/2022 12:00 PM EDT Plan of Treatment DateTypeDepartmentCare Team (Latest Contact Info)Naovcrzhqwn11/06/2025 12:00 PM ESTSocial Work [facility] [address] [place] [address] Peterson Gabriel LPC 06/21/2025 1:30 PM ESTTelemedicine [facility] [place] [facility] [address] [facility] [address] [place] [address] Anita Campos, [facility] [address] [place] [address] Health MaintenanceDue DateLast DoneCommentsMMR Vaccines (1 of 1 - Standard series)1998DTaP/Tdap/Td Vaccines (1 - Tdap)2004Varicella Vaccines (1 of 2 - 13+ 2-dose series)2010Hepatitis B Vaccines (1 of 3 - 19+ 3-dose series)2016Pneumococcal Vaccine: Pediatrics (0 to 5 Years) and At-Risk Patients (6 to 64 Years) (1 of 2 - PCV)2016HPV Vaccines (1 - 3-dose SCDM series)4COVID-19 Vaccine ( - season)2025Influenza Vaccine (#1)2025HIB VaccinesAged OutNo longer eligible based on patient's age to complete this topicHepatitis A VaccinesAged OutNo longer eligible based on patient's age to complete this topicIPV VaccinesAged OutNo longer eligible based on patient's age to complete this topicMeningococcal B VaccineAged OutNo longer eligible based on patient's age to complete this topicMeningococcal VaccineAged OutNo longer eligible based on patient's age to complete this topic Rotavirus VaccinesAged OutNo longer eligible based on patient's age to complete this topic Goals GoalPatient Goal TypeAssociated ProblemsRecent ProgressPatient-Stated?Author Reminders Care PlanOB RemindersNoOpen Scheduling, Background Additional Health Concerns Active ProblemsNoted DateDiagnosed DateOB Zagmawmci23/07/2023 Insurance Care Teams Team MemberRelationshipSpecialtyStart DateEnd Date Unallocated, Noms Provider, [address] [place] [address] PCP - GeneralFamily Medicine12/17/23 Ginny Mera CNM [address] [place] [address] Obstetrics and Gynecology10/25/24 Peterson Gabriel LPC Social WorkerBehavioral Health10/25/24 Anita Campos PMHNP- [address] [address] Nurse PractitionerBehavioral Health12/07/24
--- OUTSIDE RECORDS SUMMARY | 2025-04-10 11:22 | XMS_ITS | Continuity of Care Document ---
Author Organization [facility] Address [address] [place] [address] Problems Unknown Problems Results Test Value / Unit Interpretation Reference Ran ge SARS-CoV-2 (COVID-19), RT-PC R/TMA[[id number]] Collected: 03/22/2021 03:20 PM Specimen Received: 03/23/2021 07:33 PM SARS-CoV-2 INTERPRETATION [[id number]] Negative Mojgan l See Note SARS-CoV-2 RNA NOT DETECTEDN egative results do not preclude SARS-CoV-2 infection and should notbe used as the sole basis for patient management decisions. Negativeresults must be combined with clinical observations, patient history,and epidemiological information. Optimum specimen types and timingfor peak viral levels during infections caused by SARS-CoV-2 have notbeen determined. Collection of multiple specimens or types ofspecimens may be necessary to detect virus. Improper specimencollection and handling, sequence variability under primers/probes,or organism present below the limit of detection may lead to falsenegative results. Positive and negative predictive values oftesting are highly dependent on prevalence. False negative testresults are more likely when prevalence is high. SOURCE [[id number]] NASOPHARYNGEAL Normal Note: Methodology is Jan Sidney Real-Time RT-PCR. The expected result or reference range is NEGATIVE (Not Detected). For more information regarding COVID-19 testing to include clinicalinformation, methodology detail, intended use, FDA authorization andrecommended fact sheets for patients or healthcare providers, see NewTest Announcement: SARS-CoV-2 (COVID-19) by NAAT at URL below (note,fact sheets are provided by method given in report:[email or web address]/ Alternatively, see downloadable PDF fact sheet at:[email or web address] Allergies, adverse reactions, alerts No known allergies and adverse reactions Medications No administered medications reported Vital Signs No vital signs reported Social History No smoking Hx information available
--- OUTSIDE RECORDS SUMMARY | 2025-04-10 11:22 | XMS_ITS | Clinical Summary ---
Author Organization [facility] Address [address] [place] [address] Care Team Providers Care Marketing Operations Associate Name Role Phone Unavailable Primary Care Provider Unavailabl e Allergies Active AllergyReactionsCriticalityNoted SpttQtvyaqexVjqfggij42/16/2022 PenicillinsOther,Chcwwwp0608/20/2018 As a child- unsure Unknown reaction Happened when young.. Medications MedicationSigDispense QuantityRefillsLast FilledStart DateEnd DateStatus pantoprazole (ProtoNix) 40 mg EC tablet take 1 tablet by mouth once daily for 2 weeks05/17/2022ctive Active Problems ProblemNoted DateDiagnosed DateFetal intolerance to labor, delivered, current lofqekldpoaxcxz62/15/2022/P primary low transverse C-uzhqryv3205/22/2022iliary anastomotic leak03/29/2021ile leak03/28/2021ostoperative pain03/26/2021Term /08/2021ncounter for induction of labor02/12/2021History of rnsalygstfx06/20/2021Hx of chlamydia plbbxxyuq51/20/2021 Social History Tobacco UseTypesPacks/DayYears UsedDateSmoking Tobacco: FormerCigarettes Smokeless Tobacco: Current Tobacco Cessation:Ready to Q uit: Not Asked; Counseling Given: Not Answered Alcohol UseStandard Drinks/WeekCommentsNot Currently0 (1 standard drink = 0.6 oz pure alcohol)UT Safety & EnvironmentAnswerDate RecordedFear of Current or Ex-PartnerNot on file07/30/2023Emotionally AbusedNot on file07/30/2023hysically AbusedNot on file07/30/2023Sexually AbusedNot on file07/30/2023hysically or Sexually AbusedNot on file07/30/2023CommentsUnknownSex and Gender InformationValueDate RecordedSex Assigned at BirthNot on fileLegal SexFemale 12/05/2021 12:41 AM EDTGender IdentityNot on fileSexual OrientationNot on file Last Filed Vital Signs Vital SignReadingTime TakenCommentsBlood Uphjdlmz33/7205/23/2022 10:17 AM EST Pfwcy833905/23/2022 10:17 AM ESTTemperature--Respiratory Rate--Oxygen Saturation 100%05/23/2022 10:17 AM ESTInhaled Oxygen Concentration--Rllnpa63.7 kg (129 lb 4.8 oz)05/23/2022 10:17 AM WWLXsfrzw888.5 cm (5' 2 )05/23/2022 10:17 AM ESTBody Mass Index23.6505/23/2022 10:17 AM EST Plan of Treatment Health MaintenanceDue DateLast DoneCommentsIPV Vaccines (3 of 3 - 4-dose series) , 1997Depression Plwpykvod10/03/2009Varicella Vaccines (1 of 2 - 13+ 2-dose series)2010Pap Smear2018Adult Rugstah8404/10/2019 HPV Vaccines (1 - 3-dose SCDM series)2024Influenza Vaccine (#1)2025 Zoster Vaccines (1 of 2)2047HIB VaccinesAged Out1997, 1997No longer eligible based on patient's age to complete this topicMeningococcal B VaccineAged OutNo longer eligible based on patient's age to complete this topic Meningococcal VaccineAged OutNo longer eligible based on patient's age to complete this topicPneumococcal Vaccine: Pediatrics (0 to 5 Years) and At-Risk Patients (6 to 64 Years)Aged OutNo longer eligible based on patient's age to complete this topicRotavirus VaccinesAged OutNo longer eligible based on patient's age to complete this topic Insurance
--- OUTSIDE RECORDS SUMMARY | 2025-04-10 11:22 | XMS_ITS | Clinical Summary ---
Author Organization [employer] [facility] tem Address [id number] [address] [place] [address] Care Team Providers Care Roller Skate Repairer Name Role Phone No Pcp, No Pcp Primary Care Provider Unavailabl e Allergies Active AllergyReactionsCriticalityNoted IwwqMxpwpbjpCirknmhzltb04/03/2019 As a child- unsure Medications MedicationSigDispense QuantityRefillsLast FilledStart DateEnd DateStatus vit 26-shwz-jjrkqg 6 (PRENATE ELITE) 26 mg iron- 1 mg tablet Indications:Positive testTake 1 tablet by mouth daily. 30 tablet 12006/27/2020ctive docusate sodium (COLACE) 100 mg capsule Take 100 mg by mouth 2 (two) times a day as needed for constipation.Active Active Problems ProblemNoted DateDiagnosed DateBiliary anastomotic leak03/29/2021ile leak 03/28/2021ostoperative pain03/26/2021Hx of chlamydia /20/2021History of vdymctkafnv87/20/2021 Immunizations ImmunizationAdministration DatesNext DueDTaP, Oxcemwnmxnx93/10/1998,1997 Hep B, Adolescent or Bgdyeilxp29/15/1998,1997HiB1997,1997OPV 1997,1997 Family History Medical HistoryRelationNameCommentsDiabetesFatherHeart diseaseFatherHypertension FatherNo Known ProblemsMotherDiabetesPaternal GrandfatherBreast cancerNeg Hx CancerNeg HxOvarian cancerNeg HxRelationNameStatusCommentsFatherAliveMotherAlive Paternal Grandfather Social History Tobacco UseTypesPacks/DayYears UsedDateSmoking Tobacco: Every DayCigarettes Vaping/E-cigarettesSmokeless Tobacco: NeverAlcohol UseStandard Drinks/Week CommentsYes0 (1 standard drink = 0.6 oz pure alcohol)rareAUDIT-CAnswerDate RecordedQ1: How often do you have a drink containing alcohol?Never06/27/2020 Average Number of DrinksNot on file06/27/2020Frequency of Binge DrinkingNot on file06/27/2020hildcareAnswerDate YubqgukkMlxmiyxhoBphelks66/13/2019Employment AnswerDate TemuhlltKrkjiwekltWwtrnpc52/13/2019Purpose - LifeAnswerDate Recorded Purpose and direction in syfyEmuhgmp45/18/2021CommentsNoSex and Gender InformationValueDate RecordedSex Assigned at BirthNot on fileLegal SexFemale 10/08/2018 9:28 PM EDTGender IdentityNot on fileSexual OrientationNot on file Last Filed Vital Signs Vital SignReadingTime TakenCommentsBlood Acvewhly872/7710 12:49 PM EDT Xescu351703/31/2021 12:49 PM MAVRuwlbmqjlrz49.9 ??C (98.4 ??F)03/31/2021 12:49 PM EDTRespiratory Ufgl5586 12:49 PM EDTOxygen Prwbwnumbo02%03/31/2021 12:49 PM EDTInhaled Oxygen Concentration--Dmvyfd16.9 kg (151 lb 14.4 oz)03/31/2021 5:50 AM EFMGldyte767.5 cm (5' 2 )03/28/2021 7:18 PM EDTBody Mass Index27.78 03/28/2021 7:18 PM EDT Plan of Treatment Health MaintenanceDue DateLast DoneCommentsDepression Gtvoqaqym85/03/2009Tobacco Wswhvrgks10/03/2009dult BMI Mivimyqki52/03/2015DTaP,Tdap and Td Vaccines (3 - Tdap), 1997Pap Smear/Influenza Zxwqcrn1402/06/2025 Goals GoalPatient Goal TypeAssociated ProblemsRecent ProgressPatient-Stated?Author Home Cathie Betts LSW Note: Evaluation of progress towards goal: Safe dc transition. Medical Devices ImplantedTypeAreaManufacturerDevice IdentifierShelf Expiration DateModel / Serial / LotStent Arnaldo 10fr 9cm Ddnl Bnd Preld Temp Rx Advanix Naviflex - [id number] - [id number] Implanted:Qty: 1 on 03/28/2021 by Gonzalez Holman MD at [facility] SCIENTIFIC [id number] / [id number] / [id number] Procedures Procedure NamePriorityDate/TimeAssociated DiagnosisCommentsPAP SMEARRoutine 06/27/2020 2:00 PM EST Cervical smear, as part of routine gynecological examination from Last 3 Months or Most Recently Relevant to Health Maintenance Results * Pap Smear (06/27/2020 2:00 PM EST)Specimen (Source)Anatomical Location / LateralityCollection Method / VolumeCollection TimeReceived Time06/27/2020 2:00 PM EST06/27/2020 2:02 PM EST Narrative COPATH - 07/02/2020 11:05 AM EST [facility] [employer] [facility] ? [address] [place] [address] ? [place] [address] ? Gynecologic Cytology Consultation ? Patient Name: RENATE LOPEZ : 1995 (Age: 25) Gender: F Taken: 06/27/2020 Reported: 07/02/2020 Physician(s): Jesenia Aden APRN-GILMER Copy To: ?? Med. Rec. #: [id number]: # [id number] Final Cytologic Interpretation ThinPrep Pap Test (Cervical): Satisfactory for evaluation. A transformation zone component is present. NEGATIVE FOR INTRAEPITHELIAL LESION OR MALIGNANCY. ?? j/07/02/2020 Interpretation performed at [employer], [address] [place] [id number], License number: [id number]. Electronically Signed Out By ?RAYNE Patel(ASCP) Date of Last Menstrual Period: ? 05/23/2020 Other Clinical Conditions: Z01.419 Wedding Cake Designer exam wo/abn findings Source of Specimen ??ThinPrep Pap Test (Cervical) ? Thin Prep Pap (CLINIC MD ASSOCIATE) Fee Code(s): ?? G0145 The Pap test is a screening test with an inherent, but low, probability of error. The Pap test is primarily effective for the diagnosis and prevention of squamous cell carcinoma. Regular screening iscritical for prevention. ThinPrep liquid-based slides, which meet the Harvest Worker Fruit criteria for automated screening, have been screened by the [employer] (as of 02/22/07) along with an additional manual rescreening by a psychologist military personnel and, if indicated, by a pathologist. Authorizing ProviderResult TypeResult StatusJesenia Bae YACHT CAPTAIN-DIRECTOR INFORMATICS PATHOLOGY/CYTOLOGY ORDERABLESFinal ResultPerforming OrganizationAddress City/State/ZIP CodePhone Number COPATH from Last 3 Months or Most Recently Relevant to Health Maintenance Insurance * Guarantor: Renate Lopez TypeRelation to PatientDate of BirthPhoneBilling AddressWorkers [id number] [address] [facility] [place] [address] Advance Directives * Full Code (Latest Code Status on File) Date ActivatedDate PwtxzvukhgrQjqyagau43/22/2021 11:56 PM10 5:42 PM * Full Code Date ActivatedDate UtxathjwtjuFarpyghu53/21/2021 7:08 PM10 10:01 PM * Full Code Date ActivatedDate OmcaitemtjlPugnkqwo82/20/2021 12:36 PM10 11:44 AM Care Teams Team MemberRelationshipSpecialtyStart DateEnd Date No Pcp, No Pcp [place] [id number] [facility]08[facility]18
[2025-04-10] MEDS: DICYCLOMINE HCL 20 MG/2 ML VIAL IM (12:20)
[2025-04-10] MEDS: KETOROLAC TROMETHAMINE 30 MG/ML VIAL 15 MG IVP (12:20)
[2025-04-10 12:23] LABS: Hematocrit 41.7 % (36.0-48.0); Hemoglobin 14.3 g/dL (12.0-16.0); Immature Granulocytes Abs Auto 0.04 10^3/uL (0.00-0.03); Immature Granulocytes Pct Auto 0.4 % (0.0-0.5); Lymphocytes Absolute Auto 2.6 10^3/uL (1.2-3.8); Mean Corpuscular HGB Conc 34.3 g/dL (29.9-35.2); Mean Corpuscular Hemoglobin 30.6 pg (26.7-34.0); Mean Corpuscular Volume 89.3 fL (81.0-99.0); Platelet Count 357 10^3/uL (150-450); Red Blood Count 4.67 10^6/uL (4.20-5.40); White Blood Count 10.5 10^3/uL (4.0-11.0)
[2025-04-10 12:26] LABS: Alanine Aminotransferase 20 U/L (14-59); Albumin Globulin Ratio 1.1; Albumin Level 3.8 g/dL (3.4-5.0); Alkaline Phosphatase 77 U/L (46-116); Anion Gap 13.2; Aspartate Amino Transferase 11 U/L (15-37); Blood Urea Nitrogen 16.0 mg/dL (7.0-18.0); Calcium 8.8 mg/dL (8.5-10.1); Carbon Dioxide 23.5 mmol/L (21.0-32.0); Chloride 105 mmol/L (98-107); Estimated GFR (African America >60 (>=60 mL/min/1.73m^2); Estimated GFR (Non-African Ame >60 (>=60 mL/min/1.73m^2); Globulin 3.5 g/dL; Glucose 92 mg/dL (74-106); Potassium 3.7 mmol/L (3.5-5.1); Sodium 138 mmol/L (136-145); Total Protein 7.3 g/dL (6.4-8.2)
--- NOTE | 2025-04-10 12:40 | ED.ABDPAIN1 ---
HPI - Abdominal Pain General Chief Complaint: Abdominal Pain Stated Complaint: ABDOMINAL PAIN Time Seen by Provider: 04/10/25 11:24 Source: patient Mode of arrival: walk-in History of Present Illness HPI narrative: 30-year-old female who had history of multiple presentations here for cyclic vomiting like episodes and possible gastroparesis. Mentioned that although she is still smoking marijuana daily that this episode to happen very frequently when she have cramping in her abdomen goes to her back and also today she has some cramping in upper lower extremity that resolved before she presented to us Those episodes get better whenever the patient is just laying in the position for few hours by themselves Related Data Previous Rx's ?Medication ?Instructions ?Recorded pantoprazole 40 mg tablet,delayed 40 mg PO DAILY #30 tabs 12/29/24 release (Protonix) Held on 04/10/25. Instructions: dc Allergies Allergy/AdvReac Type Severity Reaction Status Date / Time morphine Allergy Severe Hives Verified 12/29/24 06:47 Penicillins Allergy Severe Unknown Verified 12/29/24 06:47 Review of Systems ROS Status of ROS 10 or more systems reviewed and unremarkable except as noted in history and below PFSH PFSH Surgical History Cholecystectomy planned delivery delivered ?O82 - Encounter for delivery without indication (ICD-10) Social History Smoking status: Heavy tobacco smoker Non-prescribed substance use: cannabis (any form) Highest level of school completed/degree received: high school graduate Little interest or pleasure in doing things: not at all Feeling down, depressed, or hopeless: not at all Exam Narrative Exam Narrative: Nurses notes and vital signs reviewed and patient is not hypoxic. General: Well-appearing and in no apparent distress. Skin: Warm, dry, no pallor noted. No rash. Head: Normocephalic, atraumatic. Neck: Supple, non-tender. Cardiovascular: Regular Rate and Rhythm without murmur, gallop or rub. Respiratory: No accessory muscle use or respiratory distress. Lungs are clear to auscultation, no wheezing, rales or rhonchi Chest Wall: no tenderness Back: No midline thoracic or lumbar vertebral tenderness. No CVA tenderness Musculoskeletal: normal ROM, no calf or popliteal tenderness, no lower extremity edema/swelling GI: Abdomen is soft, non-distended. Normal bowel sounds. No masses appreciated. Some epigastric discomfort Neurological: A&O x4. No cranial nerve dysfunction observed. No truncal ataxia. Moves all extremities. Sensation intact. Psychiatric: Cooperative and interactive. Normal mood and affect. Constitutional Vital Signs, click to edit/add: Last Vital Signs Temp 98.5 F 04/10/25 11:16 Pulse 82 04/10/25 12:51 Resp 16 04/10/25 12:51 BP 113/74 04/10/25 12:51 Pulse Ox 97 04/10/25 12:51 O2 Del Method Room Air 04/10/25 12:51 Course Vital Signs Vital signs: Vital Signs Temperature 98.5 F 04/10/25 11:16 Pulse Rate 85 04/10/25 11:16 Respiratory Rate 18 04/10/25 11:16 Blood Pressure 116/84 04/10/25 11:16 Pulse Oximetry 98 04/10/25 11:16 Oxygen Delivery Method Room Air 04/10/25 11:16 Temperature 98.5 F 04/10/25 11:16 Pulse Rate 82 04/10/25 12:51 Respiratory Rate 16 04/10/25 12:51 Blood Pressure 113/74 04/10/25 12:51 Pulse Oximetry 97 04/10/25 12:51 Oxygen Delivery Method Room Air 04/10/25 12:51 MDM - Abdominal Pain MDM Narrative Medical decision making narrative: The patient CBC and chemistry showed no acute pathology test is negative the patient was treated with Toradol as well as Zofran and supportive care The patient to follow-up with the primary care within 2 to 3 days and to come back to the ER in case of any worsening of the current symptoms or any new symptoms or concerns Lab Data Labs: Lab Results 04/10/25 Range/Units 11:18 WBC 10.5 (4.0-11.0) 10^3/uL RBC 4.67 (4.20-5.40) 10^6/uL Hgb 14.3 (12.0-16.0) g/dL Hct 41.7 (36.0-48.0) % MCV 89.3 (81.0-99.0) fL MCH 30.6 (26.7-34.0) pg MCHC 34.3 (29.9-35.2) g/dL RDW 12.4 (11.0-15.0) % Plt Count 357 (150-450) 10^3/uL MPV 11.0 (9.5-13.5) fL Neut % (Auto) 67.7 (43.0-75.0) % Lymph % (Auto) 24.7 (20.5-60.0) % [place] % (Auto) 4.6 (1.7-12.0) % Eos % (Auto) 2.2 (0.9-7.0) % Baso % (Auto) 0.4 (0.2-2.0) % Neut # (Auto) 7.1 H (1.4-6.5) 10^3/uL Lymph # (Auto) 2.6 (1.2-3.8) 10^3/uL Hampton # (Auto) 0.5 (0.3-0.8) 10^3/uL Eos # (Auto) 0.2 (0.0-0.7) 10^3/uL Baso # (Auto) 0.0 (0.0-0.1) 10^3/uL Abs Immat Gran (auto) 0.04 H (0.00-0.03) 10^3/uL Imm/Tot Granulo (auto) 0.4 (0.0-0.5) % Sodium 138 (136-145) mmol/L Potassium 3.7 (3.5-5.1) mmol/L Chloride 105 (98-107) mmol/L Carbon Dioxide 23.5 (21.0-32.0) mmol/L Anion Gap 13.2 BUN 16.0 (7.0-18.0) mg/dL Creatinine 0.79 (0.55-1.02) mg/dL Est GFR ( Amer) >60 (>=60 mL/min/1.73m^2) Est GFR (Non-Af Amer) >60 (>=60 mL/min/1.73m^2) BUN/Creatinine Ratio 20.3 Glucose 92 (74-106) mg/dL Calcium 8.8 (8.5-10.1) mg/dL Total Bilirubin 0.4 (0.2-1.0) mg/dL AST 11 L (15-37) U/L ALT 20 (14-59) U/L Alkaline Phosphatase 77 (46-116) U/L Total Protein 7.3 (6.4-8.2) g/dL Albumin 3.8 (3.4-5.0) g/dL Globulin 3.5 g/dL Albumin/Globulin Ratio 1.1 Serum HCG, Qual Negative (NEGATIVE) Discharge Plan Discharge Chief Complaint: Abdominal Pain Clinical Impression: Abdominal pain Patient Disposition: Home, Self-Care Time of Disposition Decision: 12:45 Condition: Good Mode of Transportation: Private Vehicle Prescriptions / Home Meds: No Action pantoprazole [Protonix] 40 mg tablet,delayed release (DR/EC) 40 mg PO DAILY Qty: 30 0RF Print Language: Mauritanian Instructions: Abdominal Pain (ED) Referrals: Physician,Non-Staff, MD [Primary Care Provider] - 1 week Discharge Date/Time: 04/10/25 12:53
[2025-04-10 12:51] VITALS: BP 113/74; PULSE 82; O2SAT 97
== END 2025-04-10 12:53 | disposition home or self-care (01) ==
PROVIDERS: Emergency Provider Emergency Medicine
DX: R10.9 Unspecified abdominal pain (principal); F17.200 Nicotine dependence, unspecified, uncomplicated
CPT/HCPCS: 36415; 80053; 84703; 85025; 96372; 96374; 96375; 99284; J0500; J1885; J2405